=== PATIENT | male | born 1990 | race Caucasian/White ===

== ENCOUNTER 2016-11-01 17:57 | Emergency (ER) | payer OTHER ==
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
[2016-11-01 19:22] VITALS: BP 136/92; PULSE 78; RESP 16; TEMP 97.2
[2016-11-01] MEDS ORDERED: IBUPROFEN 800 MG TAB PO STA (19:41)
== END 2016-11-01 19:50 | disposition home or self-care (01) ==
LOC: EC 17:57
DX: S01.01XA Laceration without foreign body of scalp, initial encounter (principal); Y04.2XXA Assault by strike against or bumped into by another person, initial encounter; Y92.830 Public park as the place of occurrence of the external cause; Z76.0 Encounter for issue of repeat prescription; F20.9 Schizophrenia, unspecified; F41.9 Anxiety disorder, unspecified; F41.0 Panic disorder [episodic paroxysmal anxiety]; Z79.899 Other long term (current) drug therapy; Z88.8 Allergy status to other drugs, medicaments and biological substances
CPT/HCPCS: 12001; 70450; 99283

== ENCOUNTER 2016-11-12 15:50 | Emergency (ER) | payer OTHER ==
[2016-11-12 15:57] VITALS: RESP 18
[2016-11-12] MEDS ORDERED: diphenhydrAMINE 50 MG/ML 1 ML VIAL IVP STA (16:10)
[2016-11-12] MEDS ORDERED: KETOROLAC 30 MG/ML 1 ML VIAL IVP STA (16:10)
[2016-11-12] MEDS ORDERED: SODIUM CHLORIDE 0.9% 1,000 ML IV STA (16:11)
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
[2016-11-12 17:48] VITALS: BP 137/80; PULSE 98; TEMP 98.3
== END 2016-11-12 17:50 | disposition home or self-care (01) ==
LOC: EC 15:50
DX: R51 Headache (principal); Z76.0 Encounter for issue of repeat prescription; F20.9 Schizophrenia, unspecified; F41.9 Anxiety disorder, unspecified; F41.0 Panic disorder [episodic paroxysmal anxiety]; Z87.891 Personal history of nicotine dependence
CPT/HCPCS: 99283; 96374; 96375; 96361; J1200; J1885

== ENCOUNTER 2016-12-14 20:32 | Emergency (ER) | payer OTHER ==
--- NOTE | 2016-12-14 23:17 | ED ---
Male Urogenital HPI - General Chief complaint: Urogenital Stated complaint: STD testing Time Seen by Provider: 12/14/16 22:53 Source: patient, RN notes reviewed Mode of arrival: ambulatory Limitations: no limitations - History of Present Illness Initial comments: Patient is a 26-year-old male presents emergency room for evaluation. Patient states he was donating plasma and he had blood tests. Patient states that phone call the other day that he tested positive for syphilis. Patient denies any known history of syphilis. Patient states he was told it could be a false positive. Patient states he got second blood work done and is waiting for the results. Patient states he is afraid he has syphilis and wants to be treated right away. Patient denies any lesions or rashes over his penis. Patient denies abnormal penile discharge. Patient denies any pain or burning during urination, trouble urinating. Patient states he noticed a small red rash on the palm of his hand and says that it itches. Patient states he is not sure if this is related or not. Patient denies fevers, chills, headache, sore throat, chest pain, shortness of breath, nausea, vomiting. Patient denies history of STDs. - Related Data Home Medications Medication Instructions Recorded Confirmed clonazePAM [KlonoPIN] 1 mg PO TID 09/21/15 12/14/16 Gabapentin 800 mg PO QID 05/23/16 12/14/16 Asenapine Maleate [Saphris] 10 mg SL HS 11/01/16 12/14/16 buPROPion HCL [Wellbutrin XL] 300 mg PO DAILY 11/01/16 12/14/16 Previous Rx's Medication Instructions Recorded Doxycycline [Vibramycin] 100 mg PO Q12HR 14 Days 12/14/16 clonazePAM [KlonoPIN] 1 mg PO TID PRN #3 tablet 12/14/16 Allergies Allergy/AdvReac Type Severity Reaction Status Date / Time aripiprazole [From Abilify] Allergy Unknown Verified 12/14/16 22:57 fluphenazine enanthate Allergy Unknown Verified 12/14/16 22:57 [From Prolixin] fluphenazine HCl Allergy Unknown Verified 12/14/16 22:57 [From Prolixin] haloperidol [From Haldol] Allergy Unknown Verified 12/14/16 22:57 haloperidol lactate Allergy Unknown Verified 12/14/16 22:57 [From Haldol] paliperidone [From Invega] Allergy Unknown Verified 12/14/16 22:57 risperidone [From Risperdal] Allergy Unknown Verified 12/14/16 22:57 Review of Systems ROS Statement: Those systems with pertinent positive or pertinent negative responses have been documented in the HPI. ROS Other: All systems not noted in ROS Statement are negative. Past Medical History Past Medical History: No Reported History Additional Past Medical History / Comment(s): Schizophrenia, right arm fracture , degenerative disc to lower back, and right wrist plate and screws History of Any Multi-Drug Resistant Organisms: None Reported Past Surgical History: Orthopedic Surgery Additional Past Surgical History / Comment(s): mouth surgery, reduction of right arm fracture. Past Psychological History: Anxiety, Panic Disorder, Schizophrenia Smoking Status: Former smoker Past Alcohol Use History: Occasional Past Drug Use History: Marijuana, Prescription Drug Abuse General Exam - General Exam Comments Initial Comments: Sitting in exam room in no distress. Limitations: no limitations General appearance: alert, in no apparent distress Head exam: Present: atraumatic, normocephalic, normal inspection Eye exam: Present: normal appearance ENT exam: Present: normal exam Neck exam: Present: normal inspection Respiratory exam: Present: normal lung sounds bilaterally. Absent: respiratory distress Cardiovascular Exam: Present: regular rate, normal rhythm, normal heart sounds GI/Abdominal exam: Present: soft, normal bowel sounds. Absent: distended, tenderness, guarding, rebound, rigid exam: Present: normal inspection Extremities exam: Present: normal inspection Back exam: Present: normal inspection Neurological exam: Present: alert, oriented X3, CN II-XII intact, normal gait Psychiatric exam: Present: normal affect, normal mood Skin exam: Present: warm, dry, intact, normal color. Absent: rash Course Vital Signs 12/14/16 12/14/16 21:25 23:49 Temperature 97.5 F L 98.1 F Pulse Rate 73 77 Respiratory 18 16 Rate Blood Pressure 161/97 139/78 O2 Sat by Pulse 99 97 Oximetry Medical Decision Making - Medical Decision Making Patient is a 26-year-old male presents emergency room for evaluation of possible syphilis. Patient states the second blood draw is still pending. Will prophylactically treat patient with IM penicillin G and send home on Doxy. Urine cultures for gonorrhea and chlamydia pending. Patient states he understands everything that was discussed with him. Return parameters discussed. Case discussed with Dr. Monge. - Lab Data Lab Results 12/14/16 Range/Units 23:13 Urine Color Yellow Urine Appearance Clear (Clear) Urine pH 6.5 (5.0-8.0) Ur Specific [place] 1.008 (1.001-1.035) Urine Protein Negative (Negative) Urine Glucose (UA) Negative (Negative) Urine Ketones 1+ H (Negative) Urine Blood Negative (Negative) Urine Nitrite Negative (Negative) Urine Bilirubin Negative (Negative) Urine Urobilinogen <2.0 (<2.0) mg/dL Ur Leukocyte Esterase Negative (Negative) Disposition Clinical Impression: Prophylactic antibiotic, Possible exposure to STD, Anxiety Disposition: HOME SELF-CARE Condition: Good Instructions: Syphilis (ED) Additional Instructions: Take antibiotics as directed. Please follow-up with primary care provider or infectious disease specialist for further evaluation. If any new symptom arises or symptoms worsen, return to ER as soon as possible. Prescriptions: Doxycycline [Vibramycin] 100 mg PO Q12HR 14 Days clonazePAM [KlonoPIN] 1 mg PO TID PRN #3 tablet PRN Reason: Anxiety Referrals: Anna Gandhi MD [Primary Care Provider] - 1-2 days José Aranda MD [STAFF PHYSICIAN] - 1-2 days Time of Disposition: 23:25
[2016-12-14 23:21] LABS: Appearance,Urine Clear (Clear); Bilirubin,Urine Negative (Negative); Glucose,Urine (UA) Negative (Negative); Ketones,Urine 1+ (Negative); Leukocyte Esterase,Urine Negative (Negative); Nitrite,Urine Negative (Negative); PH, Urine 6.5 (5.0-8.0); Protein,Urine Negative (Negative); Specific Gravity,Urine 1.008 (1.001-1.035); UA Billing (MACRO vs. MICRO) CHEM; Urobilinogen,Urine <2.0 mg/dL (<2.0)
[2016-12-14] MEDS ORDERED: PENICILLIN G BENZATHINE 1,200,000 UNIT/2 ML SYRINGE IM STA (23:21)
[2016-12-14 23:50] VITALS: BP 139/78; PULSE 77; RESP 16; TEMP 98.1
== END 2016-12-14 23:49 | disposition home or self-care (01) ==
LOC: EC 20:32
DX: Z29.8 Encounter for other specified prophylactic measures (principal); F41.9 Anxiety disorder, unspecified; F20.9 Schizophrenia, unspecified; F41.0 Panic disorder [episodic paroxysmal anxiety]; Z79.899 Other long term (current) drug therapy; Z88.8 Allergy status to other drugs, medicaments and biological substances; Z87.891 Personal history of nicotine dependence
CPT/HCPCS: 81003; 87491; 87591; 99283; 96372; J0561

== ENCOUNTER 2017-03-24 12:49 | Emergency (ER) | payer OTHER ==
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
[2017-03-24 13:19] VITALS: RESP 18
[2017-03-24 15:24] VITALS: BP 150/98; PULSE 68; TEMP 97.8
== END 2017-03-24 15:24 | disposition home or self-care (01) ==
LOC: EC 12:49
DX: F20.5 Residual schizophrenia (principal); Z87.891 Personal history of nicotine dependence; Z88.8 Allergy status to other drugs, medicaments and biological substances; Z79.1 Long term (current) use of non-steroidal anti-inflammatories (NSAID); Z79.899 Other long term (current) drug therapy
CPT/HCPCS: 82075; 99283

== ENCOUNTER 2017-05-09 12:37 | Emergency (ER) | payer OTHER ==
--- NOTE | 2017-05-09 13:06 | ED ---
Psych HPI - General Chief Complaint: Psychiatric Symptoms Stated Complaint: Mental Health Time Seen by Provider: 05/09/17 12:50 Source: police, RN notes reviewed Mode of arrival: ambulatory - History of Present Illness Initial Comments: This is a 26-year-old male with a history apparently of schizophrenia who is brought in by police on a pickup order. He is petitioned by his mother. Patient self denies any complaints this time he states he is trying to be cooperative. He denies a suicidal thoughts or ideation. Per reports he is paranoid about his food and drinks. He is also not bathing not changing his clothing. No reports of drugs or alcohol MD Complaint: other - Related Data Home Medications Medication Instructions Recorded Confirmed Gabapentin 800 mg PO QID 05/23/16 05/09/17 Asenapine Maleate [Saphris] 10 mg SL HS 11/01/16 05/09/17 buPROPion HCL [Wellbutrin XL] 300 mg PO DAILY 11/01/16 05/09/17 Allergies Allergy/AdvReac Type Severity Reaction Status Date / Time aripiprazole [From Abilify] Allergy Unknown Verified 05/09/17 13:47 fluphenazine enanthate Allergy Unknown Verified 05/09/17 13:47 [From Prolixin] fluphenazine HCl Allergy Unknown Verified 05/09/17 13:47 [From Prolixin] haloperidol [From Haldol] Allergy Unknown Verified 05/09/17 13:47 haloperidol lactate Allergy Unknown Verified 05/09/17 13:47 [From Haldol] paliperidone [From Invega] Allergy Unknown Verified 05/09/17 13:47 risperidone [From Risperdal] Allergy Unknown Verified 05/09/17 13:47 Review of Systems ROS Statement: Those systems with pertinent positive or pertinent negative responses have been documented in the HPI. ROS Other: All systems not noted in ROS Statement are negative. Past Medical History Past Medical History: No Reported History Additional Past Medical History / Comment(s): Schizophrenia, right arm fracture , degenerative disc to lower back, and right wrist plate and screws History of Any Multi-Drug Resistant Organisms: None Reported Past Surgical History: Orthopedic Surgery Additional Past Surgical History / Comment(s): mouth surgery, reduction of right arm fracture. Past Psychological History: Anxiety, Panic Disorder, Schizophrenia Smoking Status: Former smoker Past Alcohol Use History: Occasional Past Drug Use History: Marijuana, Prescription Drug Abuse General Exam - General Exam Comments Initial Comments: This is a well-developed well-nourished awake alert oriented 3 male Limitations: no limitations General appearance: alert, in no apparent distress Head exam: Present: atraumatic, normocephalic, normal inspection Eye exam: Present: normal appearance, PERRL, EOMI. Absent: scleral icterus, conjunctival injection, periorbital swelling ENT exam: Present: normal exam, mucous membranes moist Neck exam: Present: normal inspection. Absent: tenderness, meningismus, lymphadenopathy Respiratory exam: Present: normal lung sounds bilaterally. Absent: respiratory distress, wheezes, rales, rhonchi, stridor Cardiovascular Exam: Present: regular rate, normal rhythm, normal heart sounds. Absent: systolic murmur, diastolic murmur, rubs, gallop, clicks GI/Abdominal exam: Present: soft, normal bowel sounds. Absent: distended, tenderness, guarding, rebound, rigid Extremities exam: Present: normal inspection, full ROM, normal capillary refill. Absent: tenderness, pedal edema, joint swelling, calf tenderness Back exam: Present: normal inspection Neurological exam: Present: alert, oriented X3, CN II-XII intact Psychiatric exam: Present: flat affect Skin exam: Present: warm, dry, intact, normal color. Absent: rash Course Vital Signs 05/09/17 12:43 Temperature 98.0 F Pulse Rate 102 H Respiratory 18 Rate Blood Pressure 143/89 O2 Sat by Pulse 97 Oximetry Medical Decision Making - Medical Decision Making The patient was evaluated by psychiatric service found not to be a risk to himself or anyone else he'll be discharged I did fill out a negative clinical cert - Lab Data Lab Results 05/09/17 Range/Units 13:37 Urine Opiates Screen Not Detected (NotDetected) Ur Oxycodone Screen Not Detected (NotDetected) Urine Methadone Screen Not Detected (NotDetected) Ur Propoxyphene Screen Not Detected (NotDetected) Ur Barbiturates Screen Not Detected (NotDetected) U Tricyclic Antidepress Not Detected (NotDetected) Ur Phencyclidine Scrn Not Detected (NotDetected) Ur Amphetamines Screen Not Detected (NotDetected) U Methamphetamines Scrn Not Detected (NotDetected) U Benzodiazepines Scrn Not Detected (NotDetected) Urine Cocaine Screen Not Detected (NotDetected) U Marijuana (THC) Screen Detected H (NotDetected) Disposition Clinical Impression: Schizophrenia Disposition: HOME SELF-CARE Condition: Good Instructions: Schizophrenia (ED) Referrals: Anna Gandhi MD [Primary Care Provider] - 1-2 days
[2017-05-09 16:55] VITALS: BP 104/72; PULSE 88; RESP 20; TEMP 98.2
== END 2017-05-09 16:55 | disposition home or self-care (01) ==
LOC: EC 12:37
DX: F20.9 Schizophrenia, unspecified (principal); Z87.891 Personal history of nicotine dependence; Z88.8 Allergy status to other drugs, medicaments and biological substances; Z79.899 Other long term (current) drug therapy
CPT/HCPCS: 80306; 82075; 99285

== ENCOUNTER 2017-07-24 12:48 | Inpatient (IN) | payer MEDICAID, OTHER ==
--- NOTE | 2017-07-24 13:36 | ED ---
General Adult HPI - General Chief complaint: Psychiatric Symptoms Stated complaint: Mental Health Time Seen by Provider: 07/24/17 12:55 Source: patient, police, RN notes reviewed Mode of arrival: ambulatory Limitations: no limitations - History of Present Illness Initial comments: This is a 26 year old male who has a past history of mental health problems. According to the court ordered pickup order it stated that the patient was talking to himself refusing to get help at [facility] or go to the hospital. They also stated he was defecating and urinating in his bedroom and it was an excessive amount of garbage around his bedroom. This indicated to his counselor that he was not taking proper care of himself. Patient denies all these allegations. - Related Data Home Medications Medication Instructions Recorded Confirmed Gabapentin 800 mg PO QID 05/23/16 07/24/17 Asenapine Maleate [Saphris] 10 mg SL HS 11/01/16 07/24/17 buPROPion HCL [Wellbutrin XL] 300 mg PO DAILY 11/01/16 07/24/17 Allergies Allergy/AdvReac Type Severity Reaction Status Date / Time aripiprazole [From Abilify] Allergy Unknown Verified 07/24/17 14:02 fluphenazine enanthate Allergy Unknown Verified 07/24/17 14:02 [From Prolixin] fluphenazine HCl Allergy Unknown Verified 07/24/17 14:02 [From Prolixin] haloperidol [From Haldol] Allergy Unknown Verified 07/24/17 14:02 haloperidol lactate Allergy Unknown Verified 07/24/17 14:02 [From Haldol] paliperidone [From Invega] Allergy Unknown Verified 07/24/17 14:02 risperidone [From Risperdal] Allergy Unknown Verified 07/24/17 14:02 Review of Systems ROS Statement: Those systems with pertinent positive or pertinent negative responses have been documented in the HPI. ROS Other: All systems not noted in ROS Statement are negative. Past Medical History Past Medical History: No Reported History Additional Past Medical History / Comment(s): Schizophrenia, right arm fracture , degenerative disc to lower back, and right wrist plate and screws History of Any Multi-Drug Resistant Organisms: None Reported Past Surgical History: Orthopedic Surgery Additional Past Surgical History / Comment(s): mouth surgery, reduction of right arm fracture. Past Psychological History: Anxiety, Panic Disorder, Schizophrenia Smoking Status: Never smoker Past Alcohol Use History: Occasional Past Drug Use History: Marijuana, Prescription Drug Abuse General Exam - General Exam Comments Initial Comments: GENERAL: Patient is well-developed and well-nourished. Patient is nontoxic and well- hydrated and is in no acute distress. ENT: Moist mucous membranes. EYES: The sclera were anicteric and conjunctiva were pink and moist. Extraocular movements were intact and pupils were equal round and reactive to light. Eyelids were unremarkable. PULMONARY: Unlabored respirations. SKIN: Skin is clear with no lesions or rashes and otherwise unremarkable. NEUROLOGIC: Patient is alert and oriented x3. Cranial nerves II through XII are grossly intact. Motor and sensory are also intact. Normal speech, volume and content. Symmetrical smile. LYMPHATICS: No significant lymphadenopathy is noted PSYCHIATRIC: Patient is calm and is not at all aggressive. Patient denies that he has not been taking care of himself. Patient states coming here is a waste of time Limitations: no limitations Course Vital Signs 07/24/17 12:51 Pulse Rate 96 Respiratory 18 Rate Blood Pressure 147/86 O2 Sat by Pulse 98 Oximetry Medical Decision Making - Lab Data Lab Results 07/24/17 Range/Units 14:34 Urine Opiates Screen Not Detected (NotDetected) Ur Oxycodone Screen Not Detected (NotDetected) Urine Methadone Screen Not Detected (NotDetected) Ur Propoxyphene Screen Not Detected (NotDetected) Ur Barbiturates Screen Not Detected (NotDetected) U Tricyclic Antidepress Not Detected (NotDetected) Ur Phencyclidine Scrn Not Detected (NotDetected) Ur Amphetamines Screen Not Detected (NotDetected) U Methamphetamines Scrn Not Detected (NotDetected) U Benzodiazepines Scrn Not Detected (NotDetected) Urine Cocaine Screen Not Detected (NotDetected) U Marijuana (THC) Screen Not Detected (NotDetected) Disposition Clinical Impression: Schizophrenia, acute Disposition: ADMITTED IP TO THIS HOSP Referrals: Anna Gandhi MD [Primary Care Provider] - 1-2 days Time of Disposition: 16:24
[2017-07-24] MEDS ORDERED: ZIPRASIDONE 20 MG VIAL IM PRN (18:09)
[2017-07-24] MEDS ORDERED: MAGNESIUM HYDROXIDE 2,400 MG/10 ML CUP PO PRN (18:09)
[2017-07-24] MEDS ORDERED: ACETAMINOPHEN TAB 325 MG TAB PO PRN (18:09)
[2017-07-24] MEDS ORDERED: MAG HYDROX/AL HYDROX/SIMETH 30 ML CUP PO PRN (18:09)
[2017-07-24] MEDS: GABAPENTIN 400 MG CAP PO SCH (21:53)
[2017-07-24] MEDS: LORazepam 1 MG TAB PO PRN (21:57)
[2017-07-24] MEDS: ASENAPINE 5 MG TAB SUBLINGUAL SCH (22:18)
[2017-07-25] MEDS: LORazepam 1 MG TAB PO PRN ×3 (06:29→15:10)
[2017-07-25] MEDS: buPROPion XL 300 MG TAB.ER.24H PO SCH (09:03)
[2017-07-25] MEDS: GABAPENTIN 400 MG CAP PO SCH ×4 (09:03→20:52)
[2017-07-25] MEDS ORDERED: IBUPROFEN 400 MG TAB PO PRN (14:43)
--- NOTE | 2017-07-25 14:43 | P.CONS ---
History of Present Illness - Reason for Consult Medical clearance - History of Present Illness Patient was admitted to psychiatric floor on Court order, patient is an animated medical problems patient was comparing of back pain which is a chronic low back and asking for pain medications for which we will start him on ibuprofen patient denied any history of acid reflux patient denied any cough or fever chills, nausea, vomiting, abdominal pain. Review of Systems REVIEW OF SYSTEMS: CONSTITUTIONAL: No fever, no malaise, no fatigue. HEENT: No recent visual problems or hearing problems. Denied any sore throat. CARDIOVASCULAR: No chest pain, orthopnea, PND, no palpitations, no syncope. PULMONARY: No shortness of breath, no cough, no hemoptysis. GASTROINTESTINAL: No diarrhea, no nausea, no vomiting, no abdominal pain. Normoactive bowel sounds. NEUROLOGICAL: No headaches, no weakness, no numbness. HEMATOLOGICAL: Denies any bleeding or petechiae. GENITOURINARY: Denies any burning micturition, frequency, or urgency. MUSCULOSKELETAL/RHEUMATOLOGICAL: Back pain as mentioned above ENDOCRINE: Denies any polyuria or polydipsia. The rest of the 14-point review of systems is negative. Past Medical History Past Medical History: No Reported History Additional Past Medical History / Comment(s): Schizophrenia, right arm fracture , degenerative disc to lower back, and right wrist plate and screws History of Any Multi-Drug Resistant Organisms: None Reported Past Surgical History: Orthopedic Surgery Additional Past Surgical History / Comment(s): mouth surgery, reduction of right arm fracture. Past Psychological History: Anxiety, Panic Disorder, Schizophrenia Smoking Status: Never smoker Past Alcohol Use History: Occasional Past Drug Use History: Marijuana, Prescription Drug Abuse Medications and Allergies Home Medications Medication Instructions Recorded Confirmed Type Gabapentin 800 mg PO QID 05/23/16 07/24/17 History Asenapine Maleate [Saphris] 10 mg SL HS 11/01/16 07/24/17 History buPROPion HCL [Wellbutrin XL] 300 mg PO DAILY 11/01/16 07/24/17 History Allergies Allergy/AdvReac Type Severity Reaction Status Date / Time aripiprazole [From Abilify] Allergy Unknown Verified 07/24/17 14:02 fluphenazine enanthate Allergy Unknown Verified 07/24/17 14:02 [From Prolixin] fluphenazine HCl Allergy Unknown Verified 07/24/17 14:02 [From Prolixin] haloperidol [From Haldol] Allergy Unknown Verified 07/24/17 14:02 haloperidol lactate Allergy Unknown Verified 07/24/17 14:02 [From Haldol] paliperidone [From Invega] Allergy Unknown Verified 07/24/17 14:02 risperidone [From Risperdal] Allergy Unknown Verified 07/24/17 14:02 Physical Exam Vitals: Vital Signs Temp Pulse Pulse Resp BP BP Pulse Ox 07/25/17 06:47 98.0 F 120 H 16 136/91 07/24/17 18:04 97.1 F L 77 15 131/79 97 07/24/17 17:49 90 18 135/68 98 PHYSICAL EXAMINATION: GENERAL: The patient is alert and oriented x3, not in any acute distress. Well developed, well nourished. HEENT: Pupils are round and equally reacting to light. EOMI. No scleral icterus. No conjunctival pallor. Normocephalic, atraumatic. No pharyngeal erythema. No thyromegaly. CARDIOVASCULAR: S1 and S2 present. No murmurs, rubs, or gallops. PULMONARY: Chest is clear to auscultation, no wheezing or crackles. ABDOMEN: Soft, nontender, nondistended, normoactive bowel sounds. No palpable organomegaly. MUSCULOSKELETAL: No joint swelling or deformity. EXTREMITIES: No cyanosis, clubbing, or pedal edema. NEUROLOGICAL: Gross neurological examination did not reveal any focal deficits. SKIN: No rashes. Assessment and Plan Plan: #1 chronic low back pain: Patient does not have any red flag signs patient will be started on nonsteroidal anti-intermittent medication along with Pepcid. #2 history of schizophrenia: Management as per primary service. #3 marijuana drug abuse: Counseling was provided patient denied any IV drug abuse in the past
[2017-07-25] MEDS: CYCLOBENZAPRINE 10 MG TAB PO PRN (17:22)
[2017-07-25] MEDS: BUTALB/APAP/CAFF 50-325-40MG TAB PO PRN ×2 (17:22→21:41)
[2017-07-25] MEDS: FAMOTIDINE 20 MG TAB PO SCH (20:52)
[2017-07-25] MEDS: ASENAPINE 5 MG TAB SUBLINGUAL SCH (20:52)
--- NOTE | 2017-07-25 21:53 | P.HP ---
Psychiatric H&P - . H&P Date: 07/25/17 History & Physical: Allergies Allergy/AdvReac Type Severity Reaction Status Date / Time aripiprazole [From Abilify] Allergy Unknown Verified 07/24/17 14:02 fluphenazine enanthate Allergy Unknown Verified 07/24/17 14:02 [From Prolixin] fluphenazine HCl Allergy Unknown Verified 07/24/17 14:02 [From Prolixin] haloperidol [From Haldol] Allergy Unknown Verified 07/24/17 14:02 haloperidol lactate Allergy Unknown Verified 07/24/17 14:02 [From Haldol] paliperidone [From Invega] Allergy Unknown Verified 07/24/17 14:02 risperidone [From Risperdal] Allergy Unknown Verified 07/24/17 14:02 Vital Signs Temp 98.0 F 07/25/17 06:47 Pulse 120 H 07/25/17 06:47 Resp 16 07/25/17 06:47 BP 136/91 07/25/17 06:47 Pulse Ox 97 07/24/17 18:04 Intake & Output 07/24/17 07/25/17 07/25/17 18:59 06:59 18:59 Weight 86.183 kg Laboratory Last Values Urine Opiates Screen Not Detected (NotDetected) 07/24/17 14:34 Ur Oxycodone Screen Not Detected (NotDetected) 07/24/17 14:34 Urine Methadone Screen Not Detected (NotDetected) 07/24/17 14:34 Ur Propoxyphene Screen Not Detected (NotDetected) 07/24/17 14:34 Ur Barbiturates Screen Not Detected (NotDetected) 07/24/17 14:34 U Tricyclic Antidepress Not Detected (NotDetected) 07/24/17 14:34 Ur Phencyclidine Scrn Not Detected (NotDetected) 07/24/17 14:34 Ur Amphetamines Screen Not Detected (NotDetected) 07/24/17 14:34 U Methamphetamines Scrn Not Detected (NotDetected) 07/24/17 14:34 U Benzodiazepines Scrn Not Detected (NotDetected) 07/24/17 14:34 Urine Cocaine Screen Not Detected (NotDetected) 07/24/17 14:34 U Marijuana (THC) Screen Not Detected (NotDetected) 07/24/17 14:34 HPI: Patient was brought to the emergency room on a pickup order by his [facility] staff after failing to show up for two med-checks. As noted in medical record, "Per manager case, pt. has been urinating and defecating on the floor in his room. The manager case also reported an abnormal amount of garbage around the pts. bed." Patient was admitted to inpatient unit for evaluation. Patient is well known to this unit, and staff report patient report patient's initial presentation is superior to all previous admissions. This morning, patient showered and later brushed his teeth independently without any prompts from staff to do so. Patient's hair remains somewhat tangled and disheveled, but is overall clean and groomed. Patient reports that he was taking his Saphris due to having a left over supply for two reasons. One he states he is not taking it as prescribed and takes 1-tablet every 1-3 days instead of nightly. He also reports having a supply of Saphris "because I've been on it forever" that has accumulated over time from when patient filled the prescription and was entirely non-compliant. Patient does admit that some of said supply could be and shrugs indifferently. Patient denies his room is "as bad as it sounds." He does admit to sometimes urinating on t he floor, but he cannot explain why or what time of day, or if he has any pain with urination. He denies feces being present on his bed. During interview patient is linear bordering on circumstantial, he exhibits no overt signs of psychosis. Patient is able to recall in detail his past experience with PANIAGUA's and specific side effects with each. Patient is able to make a compelling argument about benzodiazpines that is complex and highly structured. He makes clear to enunciate that he is not under a court order and "I wasn't hurting anyone, I wasn't hurting myself so I just want to be left alone." Patient was again challenged about the living conditions of his former living space. Patient is more defensive that previously during interview, but easily redirected. He admits to it being filthy. He admits to sometimes urinating in the floor. He then starts to discuss discord with other persons living in the dwelling he was staying. Patient excused self to go to lunch. Interview terminated. PSYCHIATRIC HISTORY: Extensive history of psychiatric hospitalization and outpatient visits with multiple antipsychotic treatment failures. To date, patient has only had a positive response with Seroquel XR and Saphris. PMH: H/O syncope vs orthostasis, head trauma HOME MEDICATIONS: 3 Medication Instructions Recorded Confirmed Gabapentin 800 mg PO QID 05/23/16 07/24/17 Asenapine Maleate [Saphris] 10 mg SL HS 11/01/16 07/24/17 buPROPion HCL [Wellbutrin XL] 300 mg PO DAILY 11/01/16 07/24/17 SURGICAL HISTORY: Orthopedic: wrists and lower back CHEMICAL DEPENDENCY HISTORY: Denies a history of significant substance abuse problems, routinely has UDS positive for cannabis, occasionally drinks alcohol FAMILY HISTORY: No significant history of mental illness SOCIAL HISTORY: education: HS diploma occupational: SSDI environmental: lives with friends =? : no yazidi:Druze access to firearms: no sexual orientation: heterosexual safety at home: yes STRENGTHS/WEAKNESSES: "I'm outgoing," / poor coping skills MENTAL STATUS EXAM: Appearance: alert, hygiene intact but disheveled, appears stated age, steady gait Behavior: psychomotor agitation+++, no abnormal movements, fair eye contact Attitude: cooperative Speech: normal rate, rhythm, fluency, articulation, volume, and prosody; primary language: [place] Mood: mildly irritated Affect: appropriate Thought processes: overall linear Thought content: patient does not appear to be responding to internal stimuli; patient denies auditory and visual hallucinations, no delusions appreciated Insight: fair Judgment: poor Cognitive: oriented to all 3 spheres, average intelligence Assessment and Plan (1) Schizophrenia Current Visit: Yes Status: Acute Priority: High Code(s): F20.9 - SCHIZOPHRENIA, UNSPECIFIED SNOMED Code(s): 04054530 Plan: Continue hospitalization Conrinue Asenapine (Saphris) 10-mg SL HS Continue bupropion HCl (Wellbutrin Xl) 300-mg PO QAM Continue Neurontin 800-mg PO QID Patient and mother have signed Voluntary Admission form, legal status is now voluntary SW will follow up on disposition status, anticipated discharge in 2-3 days Time with Patient: Greater than 30
[2017-07-26] MEDS: LORazepam 1 MG TAB PO PRN ×4 (00:35→17:53)
[2017-07-26] MEDS: BUTALB/APAP/CAFF 50-325-40MG TAB PO PRN ×5 (01:20→20:08)
[2017-07-26] MEDS: CYCLOBENZAPRINE 10 MG TAB PO PRN ×2 (05:19→16:54)
[2017-07-26] MEDS: buPROPion XL 300 MG TAB.ER.24H PO SCH (07:50)
[2017-07-26] MEDS: GABAPENTIN 400 MG CAP PO SCH ×4 (07:51→20:08)
[2017-07-26] MEDS: FAMOTIDINE 20 MG TAB PO SCH ×2 (07:56→20:09)
[2017-07-26] MEDS: METOPROLOL SUCCINATE (ER) 50 MG TAB.ER.24H PO SCH (09:35)
[2017-07-26] MEDS: ASENAPINE 5 MG TAB SUBLINGUAL SCH (20:05)
--- NOTE | 2017-07-26 21:31 | P.PN ---
Progress Note - Text Progress Note Date: 07/26/17 Interval History: Patient found on unit and brought to exam room for private interview. Patient is again calm and lucid exhibiting no signs of psychosis. He is compliant with medications and meals. Of note, patient was pacing around most of the day and staff reported patient slept only 2-3 hours up pacing the halls the rest of the night. Patient describes a chronic feeling of restless that worsens after he takes Saphris so he likely is having some degree of akathisia. Patient has historically been hesitant to the idea of adding more medications to regimen. At this time, patient denies SI/HI/AVH. Mental Status Exam: Appearance: alert, well groomed, appears stated age, steady gait Behavior: no psychomotor agitation or psychomotor retardation, no abnormal movements, fair eye contact Attitude: cooperative Speech: normal rate, rhythm, fluency, articulation, volume, and prosody; primary language: Indonesian Mood: euthymic Affect: congruent, reactive Thought processes: linear, organized Thought content: patient does not appear to be responding to internal stimuli; patient denies auditory and visual hallucinations, no delusions appreciated Insight: fair Judgment: fair Cognitive: oriented to all 3 spheres, average intelligence Plan: Continue hospitalization Start Toprol XL 50-mg PO QAM for akathisia and chronic tachycardia Otherwise continue current regimen SW is working to help find patient a new place to live since he apparently cannot return to his former
[2017-07-27] MEDS: LORazepam 1 MG TAB PO PRN ×2 (00:30→08:39)
[2017-07-27] MEDS: CYCLOBENZAPRINE 10 MG TAB PO PRN ×2 (02:31→14:04)
[2017-07-27] MEDS: FAMOTIDINE 20 MG TAB PO SCH ×3 (08:37→20:57)
[2017-07-27] MEDS: GABAPENTIN 400 MG CAP PO SCH ×4 (08:37→20:39)
[2017-07-27] MEDS: METOPROLOL SUCCINATE (ER) 50 MG TAB.ER.24H PO SCH (08:37)
[2017-07-27] MEDS: BUTALB/APAP/CAFF 50-325-40MG TAB PO PRN ×4 (08:40→20:54)
[2017-07-27] MEDS: buPROPion XL 300 MG TAB.ER.24H PO SCH (08:41)
[2017-07-27] MEDS: clonazePAM 1 MG TAB PO PRN ×3 (11:49→20:53)
[2017-07-27] MEDS: ASENAPINE 5 MG TAB SUBLINGUAL SCH (20:40)
[2017-07-27] MEDS: ZOLPIDEM 10 MG TAB PO PRN (20:53)
--- NOTE | 2017-07-28 00:58 | P.PN ---
Progress Note - Text Progress Note Date: 07/27/17 Interval History: Patient found on unit and brought to exam room for private interview. He continues to improve his grooming and is well groomed and also recently showered and brushed his teeth prior to interview. Patient continues to have significant difficulties with sleep. He is getting at most 3-4 hours of interrupted sleep each night. Patient requests new trial of Ambien. Patient updated on discharge plan and calm and cooperative with process. Mental Status Exam: Appearance: alert, well groomed, appears stated age, steady gait Behavior: no psychomotor agitation or psychomotor retardation, no abnormal movements, fair eye contact Attitude: cooperative Speech: normal rate, rhythm, fluency, articulation, volume, and prosody; primary language: Slovak Mood: mildly anxious Affect: congruent, reactive Thought processes: linear, organized Thought content: patient does not appear to be responding to internal stimuli; patient denies auditory and visual hallucinations, no delusions appreciated Insight: fair Judgment: fair Cognitive: oriented to all 3 spheres, average intelligence Plan: Continue hospitalization Restart Ambien 10-mg PO QHS PRN for insomnia Otherwise continue current regimen VIRY is working to help find patient a new place to live since he apparently cannot return to his former
[2017-07-28] MEDS: buPROPion XL 300 MG TAB.ER.24H PO SCH (09:08)
[2017-07-28] MEDS: FAMOTIDINE 20 MG TAB PO SCH ×2 (09:09→20:56)
[2017-07-28] MEDS: METOPROLOL SUCCINATE (ER) 50 MG TAB.ER.24H PO SCH (09:09)
[2017-07-28] MEDS: GABAPENTIN 400 MG CAP PO SCH ×4 (09:09→20:55)
[2017-07-28] MEDS: clonazePAM 1 MG TAB PO PRN ×2 (09:09→20:55)
[2017-07-28] MEDS: BUTALB/APAP/CAFF 50-325-40MG TAB PO PRN ×4 (09:10→23:14)
[2017-07-28] MEDS: ASENAPINE 5 MG TAB SUBLINGUAL SCH (20:55)
--- NOTE | 2017-07-28 21:21 | P.PN ---
Progress Note - Text Progress Note Date: 07/28/17 Patient finally slept better getting ~5-6 hours of sleep last night. He reports tolerating current regimen well and denies any adverse side effects. No new complaints. Hygiene remains intact, well groomed. Denies SI/HI/AVH. Of note, patient is circumstantial today and bordering on on being tangential a few times but easily redirected back into a normal, linear stream of conversation. Mental Status Exam: Appearance: alert, well groomed, appears stated age, steady gait Behavior: no psychomotor agitation or psychomotor retardation, no abnormal movements, fair eye contact Attitude: cooperative Speech: normal rate, rhythm, fluency, articulation, volume, and prosody; primary language: Welsh Mood: mildly anxious Affect: congruent, reactive Thought processes: tangential Thought content: patient does not appear to be responding to internal stimuli; patient denies auditory and visual hallucinations, no delusions appreciated Insight: fair Judgment: fair Cognitive: oriented to all 3 spheres, average intelligence Plan: Continue hospitalization Continue current regimen SW is working to help find patient a new place to live since he apparently cannot return to his former
[2017-07-28] MEDS: ZOLPIDEM 10 MG TAB PO PRN (21:40)
[2017-07-29] MEDS: METOPROLOL SUCCINATE (ER) 50 MG TAB.ER.24H PO SCH (08:38)
[2017-07-29] MEDS: buPROPion XL 300 MG TAB.ER.24H PO SCH (08:38)
[2017-07-29] MEDS: GABAPENTIN 400 MG CAP PO SCH ×4 (08:38→20:40)
[2017-07-29] MEDS: FAMOTIDINE 20 MG TAB PO SCH ×2 (08:38→20:40)
[2017-07-29] MEDS: BUTALB/APAP/CAFF 50-325-40MG TAB PO PRN ×3 (08:39→16:17)
[2017-07-29] MEDS: clonazePAM 1 MG TAB PO PRN ×3 (08:39→22:59)
--- NOTE | 2017-07-29 09:12 | P.PN ---
Progress Note - Text Interval history: The patient is found in his room he refuses to participate in an interview in an office. The patient is well known to the service I have treated him in the past. The patient states he does not need to speak with me as his medication as arty set. He states numerous times he is here voluntarily. Nursing staff report that the patient urinated on the floor last evening or early this morning. He does tend to isolate in his room. Mental status exam: The patient is alert, he is standing in his room he prefers not to meet with me in an office. He has a very disheveled appearance he is dressed in multiple layers and in a disorganized fashion. Eye contact is intermittent. He is dismissive of questions and endorses no symptoms. He states "once again someone made things up" in order to get him hospitalized. Insight and judgment impaired. He does have a known history of psychosis at baseline. He does also have a history of becoming agitated but he did not demonstrate any verbal or physical aggressiveness during our interaction this morning. He would not tolerate further questioning. Plan: The patient is currently prescribed Saphris 10 mg at bedtime. I would consider titrating the dose. It appears he has been compliant with this medication. Vital signs reviewed. We will continue to monitor him for safety and encourage his participation in the milieu.
[2017-07-29] MEDS: CYCLOBENZAPRINE 10 MG TAB PO PRN ×2 (15:10→22:59)
[2017-07-29] MEDS: ASENAPINE 5 MG TAB SUBLINGUAL SCH (20:40)
[2017-07-29] MEDS: ZOLPIDEM 10 MG TAB PO PRN (20:44)
[2017-07-30] MEDS: buPROPion XL 300 MG TAB.ER.24H PO SCH (08:40)
[2017-07-30] MEDS: GABAPENTIN 400 MG CAP PO SCH ×4 (08:41→21:15)
[2017-07-30] MEDS: METOPROLOL SUCCINATE (ER) 50 MG TAB.ER.24H PO SCH (08:41)
[2017-07-30] MEDS: FAMOTIDINE 20 MG TAB PO SCH ×2 (08:41→21:14)
[2017-07-30] MEDS: BUTALB/APAP/CAFF 50-325-40MG TAB PO PRN ×3 (08:42→19:55)
[2017-07-30] MEDS: clonazePAM 1 MG TAB PO PRN ×2 (08:42→18:37)
--- NOTE | 2017-07-30 09:39 | P.PN ---
Progress Note - Text Interval history: The patient is found in the hallway. He refuses to speak to me in interview room and insists that we speak in the hallway. He states "nothing wrong" he indicates he is taking his medication "like I always do". He states he is here voluntarily and is appropriate for discharge. He indicates he slept all night staff documented 4 hours. He reports he is eating. Mental status exam: The patient is alert he is ambulating without difficulty. He is dressed in multiple layers which appears quite disorganized. He is wearing at least 2 peers of shorts and 3 shirts and he has a disheveled appearance overall. His outer shirt is soiled. Eye contact is staring in nature. He continues to gesture with his hands during the course of our conversation. Earlier he is observed walking in the hallway swinging his arms however this is not being directed towards anyone as none was in the vicinity at the time. The patient's presentation indicates ongoing symptoms of psychosis and he is known to have psychosis at baseline. He is denying the presence of any symptoms if asked. Insight and judgment remain impaired. He continues to convey a history of medication compliance and over the years it has been quite the opposite. He demonstrates no aggressiveness towards me the session is Brief by the patient. Plan: The patient's will continue on his current medications consider titrating Saphris further. We will also need to monitor his use of Klonopin and Fioricet and Ambien as these have addictive potential and he has struggle with those issues in the past. It is unlikely he will be prescribed these medicines on an outpatient basis. Vital signs reviewed. He is encouraged to participate in the milieu but typically does not attend groups.
[2017-07-30] MEDS: CYCLOBENZAPRINE 10 MG TAB PO PRN ×2 (12:25→23:17)
[2017-07-30] MEDS: ZOLPIDEM 10 MG TAB PO PRN (21:15)
[2017-07-30] MEDS: ASENAPINE 5 MG TAB SUBLINGUAL SCH (21:15)
[2017-07-31] MEDS: buPROPion XL 300 MG TAB.ER.24H PO SCH (08:37)
[2017-07-31] MEDS: FAMOTIDINE 20 MG TAB PO SCH ×2 (08:38→20:22)
[2017-07-31] MEDS: METOPROLOL SUCCINATE (ER) 50 MG TAB.ER.24H PO SCH (08:38)
[2017-07-31] MEDS: GABAPENTIN 400 MG CAP PO SCH ×4 (08:38→20:22)
[2017-07-31] MEDS: clonazePAM 1 MG TAB PO PRN ×3 (08:39→21:16)
[2017-07-31] MEDS: BUTALB/APAP/CAFF 50-325-40MG TAB PO PRN ×2 (08:39→12:56)
[2017-07-31] MEDS: CYCLOBENZAPRINE 10 MG TAB PO PRN ×2 (12:59→23:47)
[2017-07-31] MEDS: ASENAPINE 5 MG TAB SUBLINGUAL SCH (20:22)
[2017-07-31] MEDS: BUTALB/APAP/CAFF 50-325-40MG TAB PO SCH (20:22)
[2017-07-31] MEDS: ZOLPIDEM 10 MG TAB PO PRN (21:16)
--- NOTE | 2017-07-31 22:10 | P.PN ---
Progress Note - Text Progress Note Date: 07/31/17 Interval History: Patient interviewed today with patient's SW present. Attending and SW both explained to patient that treatment is still attempting to find a senior care for him. Patient was upset and asked repeatedly why he couldn't sign himself out. Patient was told as he has been multiple times it is because he has a legal guardian. SW attempted several times to calm patient and redirect him, but patient is fixated on his desire to discharge. And to discharge to a location that is not a senior care which he has not expressed until today. Patient was told to ponder on this matter, talk to his mother, and treatment will continue to try and come up with options for him. Patient left the room irritable but less angry than he initially was at the news. Mental Status Exam: Appearance: alert, well groomed, appears stated age, steady gait Behavior: no psychomotor agitation or psychomotor retardation, no abnormal movements, fair eye contact Attitude: cooperative Speech: normal rate, rhythm, fluency, articulation, volume, and prosody; primary language: Czech Mood: irritable Affect: congruent, reactive Thought processes: linear Thought content: patient does not appear to be responding to internal stimuli; patient denies auditory and visual hallucinations, no delusions appreciated Insight: fair Judgment: fair Cognitive: oriented to all 3 spheres, average intelligence Plan: Continue hospitalizationte Continue current regimen SW is working to help find patient a new place to live since he apparently cannot return to his former
[2017-08-01] MEDS: buPROPion XL 300 MG TAB.ER.24H PO SCH (08:57)
[2017-08-01] MEDS: BUTALB/APAP/CAFF 50-325-40MG TAB PO SCH (08:57)
[2017-08-01] MEDS: GABAPENTIN 400 MG CAP PO SCH ×4 (08:58→21:13)
[2017-08-01] MEDS: METOPROLOL SUCCINATE (ER) 50 MG TAB.ER.24H PO SCH (08:58)
[2017-08-01] MEDS: FAMOTIDINE 20 MG TAB PO SCH ×2 (08:58→21:13)
[2017-08-01] MEDS: clonazePAM 1 MG TAB PO PRN ×2 (08:59→19:13)
--- NOTE | 2017-08-01 10:43 | P.PN ---
Progress Note - Text Progress Note Date: 08/01/17 Interval History: Patient is calmer today although he continues to fixate on discharge and does not understand the guardianship process despite multiple attempts to educate him. Patient continues to be attending almost all groups, activities, and recreational therapies. He is still attending his hygiene, showering, and grooming appropriately. Patient is medication compliant. Denies side effects. Eating ok, drinking ok, sleep has improved. Denies SI/HI/AVH. Mental Status Exam: Appearance: alert, well groomed, appears stated age, steady gait Behavior: no psychomotor agitation or psychomotor retardation, no abnormal movements, fair eye contact Attitude: cooperative Speech: normal rate, rhythm, fluency, articulation, volume, and prosody; primary language: Spanish Mood: mildly anxious Affect: congruent, reactive Thought processes: linear Thought content: patient does not appear to be responding to internal stimuli; patient denies auditory and visual hallucinations, no delusions appreciated Insight: fair Judgment: fair Cognitive: oriented to all 3 spheres, average intelligence Plan: Continue hospitalization Continue current regimen SW is working to help find patient a new place to live since he apparently cannot return to his former
[2017-08-01] MEDS ORDERED: BUTALB/APAP/CAFF 50-325-40MG TAB PO PRN (14:16)
[2017-08-01] MEDS: BUTALB/APAP/CAFF 50-325-40MG TAB PO PRN ×2 (15:40→21:18)
[2017-08-01] MEDS: ASENAPINE 5 MG TAB SUBLINGUAL SCH (21:13)
[2017-08-01] MEDS: ZOLPIDEM 10 MG TAB PO PRN (21:22)
[2017-08-02] MEDS: BUTALB/APAP/CAFF 50-325-40MG TAB PO PRN ×5 (04:05→19:46)
[2017-08-02] MEDS: clonazePAM 1 MG TAB PO PRN ×3 (04:05→20:25)
[2017-08-02] MEDS: GABAPENTIN 400 MG CAP PO SCH ×4 (08:01→21:02)
[2017-08-02] MEDS: FAMOTIDINE 20 MG TAB PO SCH ×2 (08:01→21:00)
[2017-08-02] MEDS: buPROPion XL 300 MG TAB.ER.24H PO SCH (08:01)
[2017-08-02] MEDS: METOPROLOL SUCCINATE (ER) 50 MG TAB.ER.24H PO SCH (08:02)
--- NOTE | 2017-08-02 20:02 | P.PN ---
Progress Note - Text Progress Note Date: 08/02/17 Interval History: Patient irritable today. He stands the for entire interview and states, "I'm doing fine, can we get this over with?" Patient denies any new concerns and terminates interview. Staff report patient has been more irritable with them too but otherwise patient is unchanged from previous exam. Mental Status Exam: Appearance: alert, somewhat disheveled , appears stated age, steady gait Behavior: no psychomotor agitation or psychomotor retardation, no abnormal movements, fair eye contact Attitude: cooperative Speech: normal rate, rhythm, fluency, articulation, volume, and prosody; primary language: Czech Mood: irritable Affect: congruent, reactive Thought processes: linear Thought content: patient does not appear to be responding to internal stimuli; patient denies auditory and visual hallucinations, no delusions appreciated Insight: fair Judgment: fair Cognitive: oriented to all 3 spheres, average intelligence Plan: Continue hospitalization Continue current regimen VIRY is working to help find patient a new place to live since he apparently cannot return to his former
[2017-08-02] MEDS: ZOLPIDEM 10 MG TAB PO PRN (21:02)
[2017-08-02] MEDS: ASENAPINE 5 MG TAB SUBLINGUAL SCH (21:02)
[2017-08-02] MEDS: CYCLOBENZAPRINE 10 MG TAB PO PRN (21:02)
[2017-08-03] MEDS: BUTALB/APAP/CAFF 50-325-40MG TAB PO PRN ×3 (05:46→14:07)
[2017-08-03] MEDS: clonazePAM 1 MG TAB PO PRN ×3 (05:46→23:55)
[2017-08-03] MEDS: buPROPion XL 300 MG TAB.ER.24H PO SCH (08:09)
[2017-08-03] MEDS: GABAPENTIN 400 MG CAP PO SCH ×4 (08:09→21:17)
[2017-08-03] MEDS: FAMOTIDINE 20 MG TAB PO SCH ×2 (08:58→21:19)
[2017-08-03] MEDS: METOPROLOL SUCCINATE (ER) 50 MG TAB.ER.24H PO SCH (08:58)
[2017-08-03] MEDS: CYCLOBENZAPRINE 10 MG TAB PO PRN (17:05)
[2017-08-03] MEDS: ASENAPINE 5 MG TAB SUBLINGUAL SCH (20:07)
--- NOTE | 2017-08-03 20:48 | P.PN ---
Progress Note - Text Progress Note Date: 08/03/17 Interval History: Patient interviewed with SW in front of nurses station today. Patient was informed that a bed is now available at [facility] and he will discharge today. Patient became exasperated refusing to listen or be reasonable. Patient ultimately stated he would refuse transfer despite multiple attempts to reason with him from various staff members. Patient was informed he will discharge today and that the decision had been made. Mental Status Exam: Appearance: alert, somewhat disheveled , appears stated age, steady gait Behavior: no psychomotor agitation+++, no abnormal movements, fair eye contact Attitude: cooperative Speech: normal rate, rhythm, fluency, articulation, volume, and prosody; primary language: Cymro Mood: irritable Affect: congruent, reactive Thought processes: irrational Thought content: patient does not appear to be responding to internal stimuli; patient denies auditory and visual hallucinations, no delusions appreciated Insight: diminished Judgment: diminished Cognitive: oriented to all 3 spheres, average intelligence Plan: Discharge to Prescriptions printed and provided Patient has scheduled appointments and will follow up OP with [facility]
[2017-08-03] MEDS: ZOLPIDEM 10 MG TAB PO PRN (21:17)
[2017-08-04] MEDS: BUTALB/APAP/CAFF 50-325-40MG TAB PO PRN ×4 (05:28→20:10)
[2017-08-04] MEDS: buPROPion XL 300 MG TAB.ER.24H PO SCH (08:51)
[2017-08-04] MEDS: METOPROLOL SUCCINATE (ER) 50 MG TAB.ER.24H PO SCH (08:51)
[2017-08-04] MEDS: GABAPENTIN 400 MG CAP PO SCH ×4 (08:52→20:05)
[2017-08-04] MEDS: FAMOTIDINE 20 MG TAB PO SCH ×2 (08:54→20:05)
[2017-08-04] MEDS: CYCLOBENZAPRINE 10 MG TAB PO PRN ×2 (08:55→17:49)
[2017-08-04] MEDS: clonazePAM 1 MG TAB PO PRN ×2 (08:55→17:49)
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
[2017-08-04] MEDS: ASENAPINE 5 MG TAB SUBLINGUAL SCH (20:05)
[2017-08-04] MEDS: ZOLPIDEM 10 MG TAB PO PRN (20:11)
[2017-08-05] MEDS: clonazePAM 1 MG TAB PO PRN ×3 (01:24→23:44)
[2017-08-05] MEDS: BUTALB/APAP/CAFF 50-325-40MG TAB PO PRN ×4 (01:24→21:05)
[2017-08-05] MEDS: buPROPion XL 300 MG TAB.ER.24H PO SCH (08:00)
[2017-08-05] MEDS: GABAPENTIN 400 MG CAP PO SCH ×4 (08:00→21:03)
[2017-08-05] MEDS: FAMOTIDINE 20 MG TAB PO SCH ×2 (08:57→21:23)
[2017-08-05] MEDS: METOPROLOL SUCCINATE (ER) 50 MG TAB.ER.24H PO SCH (08:58)
[2017-08-05] MEDS: CYCLOBENZAPRINE 10 MG TAB PO PRN (12:15)
--- NOTE | 2017-08-05 14:20 | PN ---
PROGRESS NOTE DATE OF SERVICE: 08/05/2017. CHIEF COMPLAINT: The patient was admitted due to disorganized behavior. He was not taking care of his basic needs. He had not been taking medications appropriately. He had been hoarding items including garbage. INTERVAL HISTORY: The patient has been doing fair. He had a quiet evening last night. He slept well today. He has been up and about. He is fairly vague about the issues relating to his current situation. I reviewed with the patient the note of Dr. Reeves from yesterday in regards to discharge planning. The patient continues to persist with the idea that he would not go to [facility]. He talked about not wanting to go to any senior living. He was not clear about details or why he resist that. He suggested that he might be able to move in with his mother. He said that overall he was doing fair today. He thought he could just be discharged to the street and that he could manage his needs. He has not had change in his general health. He appears to tolerate his psychotropic medications. MENTAL STATUS: Patient gave fair eye contact. He was slowed in his manner was noteworthy that he was wearing socks on his hands, though was not able to describe why he was doing that other than something about air-conditioning and it was noted that he was trying to open up a plastic wrapper and a small piece of candy that was quite difficult for him with the socks on. He gave fair eye contact. Psychomotor activity was slowed speech was monotone and soft. He answered questions with brief responses. Some of the time his answers were appropriate to questions asked and at other times he was tangential. His affect was blunted. His mood reserved. It was difficult to say if he was distressed. His manner suggested some persistence of thought disorder. ASSESSMENT: I will continue the current diagnosis and treatment plan. We will continue to make efforts to engage the patient in individual and group therapeutic activities. The patient did attend a group today though he had not been attending groups yesterday in spite of the fact that he says he goes to groups. We talked about discharge planning issues. It is not clear what is anticipated in terms of senior living placement. We will continue to focus on stabilization and discharge planning. MMODL / IJN: [id number] /
[2017-08-05] MEDS: ASENAPINE 5 MG TAB SUBLINGUAL SCH (21:02)
[2017-08-05] MEDS: ZOLPIDEM 10 MG TAB PO PRN (21:04)
[2017-08-06] MEDS: BUTALB/APAP/CAFF 50-325-40MG TAB PO PRN ×4 (05:55→20:21)
[2017-08-06] MEDS: CYCLOBENZAPRINE 10 MG TAB PO PRN ×2 (05:55→12:51)
[2017-08-06 07:05] VITALS: TEMP 97.9
[2017-08-06] MEDS: METOPROLOL SUCCINATE (ER) 50 MG TAB.ER.24H PO SCH (07:50)
[2017-08-06] MEDS: FAMOTIDINE 20 MG TAB PO SCH ×2 (07:51→23:04)
[2017-08-06] MEDS: clonazePAM 1 MG TAB PO PRN ×3 (07:52→20:21)
[2017-08-06] MEDS: GABAPENTIN 400 MG CAP PO SCH ×4 (07:52→20:20)
[2017-08-06] MEDS: buPROPion XL 300 MG TAB.ER.24H PO SCH (07:52)
[2017-08-06] MEDS: ASENAPINE 5 MG TAB SUBLINGUAL SCH (20:20)
[2017-08-06] MEDS: ZOLPIDEM 10 MG TAB PO PRN (20:20)
--- NOTE | 2017-08-06 22:11 | PN ---
PROGRESS NOTE DATE OF SERVICE: 08/06/2017. CHIEF COMPLAINT: The patient was admitted due to disorganized behavior. He was not taking care of his basic needs. He had not been taking medications appropriately. He had been hoarding items including garbage. INTERVAL HISTORY: Patient has been doing fairly well. He had a quiet evening last night. He slept well. Today he has been up and about. He comes out in the day area. He will interact a little with others. He tends to have a quiet manner. He has seemed to be a little more organized and appropriate in how he presents himself. It is noted that he had better grooming today. He was neatly groomed. Also yesterday, he was wearing socks on his hands, was unclear what the reason for that was. Today he was not wearing them. He seemed to be a little more responsive in the milieu. He has not had change in his general health. He tolerates his psychotropic medications. MENTAL STATUS: The patient gave fairly good eye contact. Psychomotor activity was slowed. Speech was monotone. He answered questions with direct responses. His thoughts were clear. His affect was a little blunted. His mood was quiet. It was noteworthy that he seemed to be a little more responsive and showed a little more engagement in the interview. He did appear to be distressed. There was no immediate evidence for thought disorder. ASSESSMENT: I will continue the current diagnosis and treatment plan. I will continue psychotropic medications the same. I reviewed with the patient that he apparently did receive Invega Sustenna 234 mg early in his hospitalization. He was in agreement with continuing that treatment. We will continue to focus on stabilization and discharge planning. EDIS / VIOLETA: [id number] /
[2017-08-07] MEDS: CYCLOBENZAPRINE 10 MG TAB PO PRN ×2 (01:47→11:54)
[2017-08-07] MEDS: FAMOTIDINE 20 MG TAB PO SCH ×2 (08:09→20:44)
[2017-08-07] MEDS: GABAPENTIN 400 MG CAP PO SCH ×4 (08:09→20:43)
[2017-08-07] MEDS: METOPROLOL SUCCINATE (ER) 50 MG TAB.ER.24H PO SCH (08:09)
[2017-08-07] MEDS: buPROPion XL 300 MG TAB.ER.24H PO SCH (08:09)
[2017-08-07] MEDS: clonazePAM 1 MG TAB PO PRN ×2 (08:10→17:50)
[2017-08-07] MEDS: BUTALB/APAP/CAFF 50-325-40MG TAB PO PRN ×3 (08:11→17:45)
[2017-08-07 09:59] VITALS: BMI 24.3
[2017-08-07] MEDS: ASENAPINE 5 MG TAB SUBLINGUAL SCH (20:43)
[2017-08-07] MEDS: ZOLPIDEM 10 MG TAB PO PRN (20:45)
--- NOTE | 2017-08-07 22:23 | P.PN ---
Subjective Principal diagnosis: Schizophrenia Interval History: Patient interviewed in his bedroom today as he refused summons to nurses station. Patient continues to refuse transfer to [facility]. His rationale for such is more vague than usual stating that he just doesn't want to go because of "what that place is." Patient is unable to elaborate further. Patient is compliant with his medications. He appears to have recently showered although his clothing is disheveled . Patient is attending all meals. He is sleeping well. He has not required any emergency medication. Patient denies SI/ HI/AVH. Staff do report patient has been frequently masturbating which he was upon entry into room today although he quickly concealed himself and stopped. It is uncertain how excessive this behavior is, but at present it is noted. No interventions are warranted at this time. Mental Status Exam: Appearance: alert, somewhat disheveled, appears stated age, steady gait Behavior: psychomotor agitation+++, no abnormal movements, fair eye contact Attitude: cooperative Speech: normal rate, rhythm, fluency, articulation, volume, and prosody; primary language: Turkmen Mood: dysphoric Affect: congruent, reactive Thought processes: concrete Thought content: patient does not appear to be responding to internal stimuli; patient denies auditory and visual hallucinations, no delusions appreciated Insight: diminished Judgment: diminished Cognitive: oriented to all 3 spheres, average intelligence Plan: Discharge to once bed is available and patient can be convinced to go Continue current regimen Patient has scheduled appointments and will follow up OP with [facility] Objective - Vital Signs Vital signs: Vital Signs Temp 97.9 F 08/07/17 05:31 Pulse 81 08/07/17 05:31 Resp 16 08/07/17 05:31 BP 139/88 08/07/17 05:31 Pulse Ox 97 07/30/17 08:45 Intake & Output 08/07/17 08/07/17 08/08/17 06:59 18:59 06:59 Weight 76.827 kg Assessment and Plan (1) Schizophrenia Current Visit: Yes Status: Acute Priority: High Code(s): F20.9 - SCHIZOPHRENIA, UNSPECIFIED SNOMED Code(s): 74326568
[2017-08-08] MEDS: clonazePAM 1 MG TAB PO PRN ×2 (03:45→13:06)
[2017-08-08 03:47] VITALS: RESP 18
[2017-08-08] MEDS: METOPROLOL SUCCINATE (ER) 50 MG TAB.ER.24H PO SCH (08:59)
[2017-08-08] MEDS: buPROPion XL 300 MG TAB.ER.24H PO SCH (09:00)
[2017-08-08] MEDS: GABAPENTIN 400 MG CAP PO SCH ×2 (09:00→13:06)
[2017-08-08] MEDS: FAMOTIDINE 20 MG TAB PO SCH (09:00)
[2017-08-08] MEDS: BUTALB/APAP/CAFF 50-325-40MG TAB PO PRN ×2 (09:01→13:07)
[2017-08-08 09:53] VITALS: BP 142/80; PULSE 110
[2017-08-08] MEDS ORDERED: clonazePAM 1 MG TAB PO STA (14:17)
--- NOTE | 2017-09-04 00:44 | P.DS ---
Providers Date of admission: 07/24/17 16:49 Expected date of discharge: 08/08/17 Attending physician: Ethan Reeves DO Consults: 07/24/17 18:09 Consult Physician Routine Consulting Provider: Adela Mendosa Reason/Comments: H and P Do you want consulting provider notified?: Already Contacted Primary care physician: Hiram Lopez Charbal - Discharge Diagnosis(es) (1) Schizophrenia Status: Acute Priority: High Hospital Course: HOSPITAL COURSE: * Legal status at discharge: Voluntary (has legal guardian) * Compliant with medications: Mostly * Reported adverse side effects: No * Required restraints/seclusion: No * Emergency Medication administered: Yes * Attended group, recreational, activity therapies: Rarely Patient is a 27-year-old male with a history of refractory schizophrenia who presented to the inpatient unit after failing to show up to 2 med check appointments in a pickup order was requested by his patient sitter. Per the petition the patient has been urinating and defecating on the floor of his bedroom, noncompliant with medications, and attending ADLs or eating/drinking well.. Patient was admitted to the inpatient unit for evaluation. Prior to initial inpatient interview without prompting patient had eaten breakfast and showered. His hair was tangled hold somewhat disheveled but he was otherwise clean. Patient agreed to stay in the hospital 3-4 days to work with his sleep. He reported difficulty both falling and staying asleep and wanted to get started back on Ambien. During interviews with attending, patient was able to hold himself together better than others on the unit but nonetheless was floridly psychotic at various times a day. He would often go in his room and rant talking to himself. When approached during these times, patient was able to voluntarily suppress them at least for short period of time. He was not aggressive. He was selectively compliant with medications but he did take his Saphris. On day 3 after patient learned that he couldn't sign himself out, patient began to decompensate. He did not understand this at all. Patient did not understand he had a guardian despite being informed of such multiple times. He maintained that he did sign himself out despite multiple multiple explanations. Patient was told that he could not leave the hospital until a safe discharge plan was established. Patient's mother, his legal guardian, felt it was in patient's best interest discharged to a correction or transitioning back to his own care. Patient became irate and told he was going to discharge to correction. He rejected this idea entirely. A discharge date was set and then canceled due to him refusing such. A second discharge date was set with his mother present and patient was discharged to [facility]. During hospital course patient did urinating in his room somewhat, and asked about this he would deny it. He was never witnessed doing this. family meeting completed with pt's mom and grandma to discuss d/c plans. Pt chose not to attend, but came in after and talked privately with mom and grandma. Pt has no other appropriate housing other than a correction at this time. Attending psychiatrist also attended meeting and discussed with pt's mom pt's progress. Pt has presented as improved other than when discussing dc to correction. Pt then becomes loud and agitated stating he wants to stay in the hospital. Otherwise, pt has been calm and cooperative, attending groups and compliant with medications. Mom states she plans on going to the court to discuss getting a co-guardian, as she doesn't feel she can "do this anymore, I need help". Several staff including charge nurse were involved in pt's d/c, assisting correction staff with pt's belongings, rx and dc papers. Pt has [facility] appts set up for tomorrow with Delfino. He has medicaid to cover rx and aftercare. t/c with pt's mom to discuss possible d/c plans today. Mom/Guardian supports plan to pursue [facility] correction today and added that she will come in at 130 to talk to him prior to his 2pm machine operator picker. Updated tx team, who are all in agreement with plan to move forward with dc despite pt's refusal, as no other options are appropriate or safe at this time. MENTAL STATUS EXAM: Appearance: alert, disheveled , appears stated age, steady gait Behavior: psychomotor agitation+++, no abnormal movements, poor eye contact Attitude: overall uncooperative until Speech: loud, fast; primary language: Sinhala Mood: angry Affect: labile Thought processes: circumstantial, patient will derail but can be redirected into linear processing for short periods of time Thought content: patient does not appear to be responding to internal stimuli , he denies auditory and visual hallucinations, he's floridly delusional and agitated with his angry mood fueling his feelings of being persecuted, denies SI /HI Insight: poor Judgment: poor Cognitive: oriented to all 3 spheres, average intelligence Patient Condition at Discharge: Stable Plan - Discharge Summary New Discharge Prescriptions: New Asenapine [Saphris] 10 mg SUBLINGUAL HS #14 tab buPROPion XL [Wellbutrin XL] 300 mg PO DAILY #14 tab.er.24h clonazePAM [KlonoPIN] 1 mg PO TID PRN #21 tab PRN Reason: Anxiety Metoprolol Succinate (ER) [Toprol XL] 50 mg PO DAILY #14 tab.er.24h Zolpidem [Ambien] 10 mg PO HS PRN #7 tab PRN Reason: Insomnia Continue Gabapentin 800 mg PO QID #56 tablet Discontinued buPROPion HCL [Wellbutrin XL] 300 mg PO DAILY Asenapine Maleate [Saphris] 10 mg SL HS No Action Cyclobenzaprine [Flexeril] 10 mg PO BID PRN PRN Reason: Muscle Spasm Butalb/APAP/Caff 50-325-40Mg [Fioricet 50-325-40] 1 tab PO BID PRN PRN Reason: Headache Discharge Medication List Asenapine [Saphris] 10 mg SUBLINGUAL HS #14 tab 08/03/17 [Rx] Gabapentin 800 mg PO QID #56 tablet 08/03/17 [Rx] Metoprolol Succinate (ER) [Toprol XL] 50 mg PO DAILY #14 tab.er.24h 08/03/17 [Rx ] Zolpidem [Ambien] 10 mg PO HS PRN #7 tab 08/03/17 [Rx] buPROPion XL [Wellbutrin XL] 300 mg PO DAILY #14 tab.er.24h 08/03/17 [Rx] clonazePAM [KlonoPIN] 1 mg PO TID PRN #21 tab 08/03/17 [Rx] Butalb/APAP/Caff 50-325-40Mg [Fioricet 50-325-40] 1 tab PO BID PRN 08/28/17 [ History] Cyclobenzaprine [Flexeril] 10 mg PO BID PRN 08/28/17 [History] Follow up Appointment(s)/Referral(s): [facility] [Outside] - 08/09/17 10:30 am (08-09-17 @ 10:30 with Delfino ramos Edson 08-09-17 @ 2:[address] Monge ) Anna Gandhi MD [Primary Care Provider] - 1-2 days Patient Instructions/Handouts: Schizophrenia (DC) Activity/Diet/Wound Care/Special Instructions: No alcohol or street drugs, activity as tolerated, diet as tolerated, remove firearms from home. Call 911 or crisis line if having thoughts to hurt himself or anyone else. Follow up with outpatient provider as set up at time of discharge. Discharge Disposition: HOME SELF-CARE
== END 2017-08-08 14:27 | disposition home or self-care (01) | DRG 885 ==
LOC: EC 12:48 → 3MHU 16:49
PROVIDERS: ADMIT Psychiatry & Neurology Psychiatry; ATTEND Psychiatry & Neurology Psychiatry
DX: F20.9 Schizophrenia, unspecified (principal); G25.71 Drug induced akathisia; F41.0 Panic disorder [episodic paroxysmal anxiety]; G89.29 Other chronic pain; T50.996A Underdosing of other drugs, medicaments and biological substances, initial encounter; M51.36 Other intervertebral disc degeneration, lumbar region; F12.10 Cannabis abuse, uncomplicated; R45.1 Restlessness and agitation; T50.995A Adverse effect of other drugs, medicaments and biological substances, initial encounter; R00.0 Tachycardia, unspecified; Z79.899 Other long term (current) drug therapy; Z88.8 Allergy status to other drugs, medicaments and biological substances
CPT/HCPCS: 80306; 82075; 99285

== ENCOUNTER 2017-08-31 13:56 | Inpatient (IN) | payer MEDICAID, OTHER ==
--- NOTE | 2017-08-31 15:22 | ED ---
Psych HPI - General Chief Complaint: Psychiatric Symptoms Stated Complaint: EPS eval Time Seen by Provider: 08/31/17 14:05 Source: patient, police Mode of arrival: ambulatory - History of Present Illness Initial Comments: 89 years old male he has a history of psych disorders child believes that his Crystal Is a Density and Switching His Meds Believe H and Making Him Feel in His Pants He Thinks That He Is Making Him Do Things and Child Is Moving His Bowels and Now Avoiding the Urinating and Inappropriate Places and Is Leaving at Home without the Authorization. He Has Had That His Hand Is a Suicidal and Homicidal He Tried to Hang Himself with a Bowel Movement and Somehow His Identity Is Being Mixed with This Other Person Patient Is Referring to. I'm Not Sure If Is a Result of a Dilution. Review of System As Far As Medical Complaints or Concern That Some Unremarkable He Denies Any Street Drugs He Denies alcohol position denies any voices. - Related Data Home Medications Medication Instructions Recorded Confirmed Butalb/APAP/Caff 50-325-40Mg 1 tab PO BID PRN 08/28/17 08/31/17 [Fioricet 50-325-40] Cyclobenzaprine [Flexeril] 10 mg PO BID PRN 08/28/17 08/31/17 Previous Rx's Medication Instructions Recorded Asenapine [Saphris] 10 mg SUBLINGUAL HS #14 tab 08/03/17 Gabapentin 800 mg PO QID #56 tablet 08/03/17 Metoprolol Succinate (ER) [Toprol 50 mg PO DAILY #14 tab.er.24h 08/03/17 XL] Zolpidem [Ambien] 10 mg PO HS PRN #7 tab 08/03/17 buPROPion XL [Wellbutrin XL] 300 mg PO DAILY #14 tab.er.24h 08/03/17 clonazePAM [KlonoPIN] 1 mg PO TID PRN #21 tab 08/03/17 Allergies Allergy/AdvReac Type Severity Reaction Status Date / Time aripiprazole [From Abilify] Allergy Unknown Verified 08/31/17 14:03 fluphenazine enanthate Allergy Unknown Verified 08/31/17 14:03 [From Prolixin] fluphenazine HCl Allergy Unknown Verified 08/31/17 14:03 [From Prolixin] haloperidol [From Haldol] Allergy Unknown Verified 08/31/17 14:03 haloperidol lactate Allergy Unknown Verified 08/31/17 14:03 [From Haldol] paliperidone [From Invega] Allergy Unknown Verified 08/31/17 14:03 risperidone [From Risperdal] Allergy Unknown Verified 08/31/17 14:03 Review of Systems ROS Statement: Those systems with pertinent positive or pertinent negative responses have been documented in the HPI. ROS Other: All systems not noted in ROS Statement are negative. Past Medical History Past Medical History: No Reported History Additional Past Medical History / Comment(s): Schizophrenia, right arm fracture , degenerative disc to lower back, and right wrist plate and screws History of Any Multi-Drug Resistant Organisms: None Reported Past Surgical History: Orthopedic Surgery Additional Past Surgical History / Comment(s): mouth surgery, reduction of right arm fracture. Past Psychological History: Anxiety, Panic Disorder, Schizophrenia Smoking Status: Never smoker Past Alcohol Use History: Occasional Past Drug Use History: Marijuana, Prescription Drug Abuse General Exam - General Exam Comments Initial Comments: General: The patient is awake and alert, in no distress, and does not appear acutely ill. Skin: Skin is warm and dry and no rashes or lesions are noted. Eye: Pupils are equal, round and reactive to light, extra-ocular movements are intact; there is normal conjunctiva bilaterally. Ears, nose, mouth and throat: There are moist mucous membranes and no oral lesions. Neck: The neck is supple, there is no tenderness or JVD. Cardiovascular: There is a regular rate and rhythm. No murmur, rub or gallop is appreciated. Respiratory: To auscultation bilateral, no wheezing no rhonchi no distress respiratory mendoza noticed Gastrointestinal: Soft, non-distended, non-tender abdomen without masses or organomegaly noted. There is no rebound or guarding present. Bowel sounds are unremarkable. Back: There is no tenderness to palpation in the midline. There is no obvious deformity. Musculoskeletal: Normal ROM, no tenderness, There is no pedal edema. There is no calf tenderness or swelling. No cords were appreciated. Neurological: CN II-XII intact, Cranial nerves III through XII are intact. There are no obvious motor or sensory deficits. Coordination appears grossly intact. Speech is normal. Psychiatric: Cooperative, obese depression noticed by the he refers to another person who has a suicidal ideation and homicidal ideation he believes somebody stole his identity and they're messing him up him a based on this these delusions seems like he is suffering from psychosis at this time Limitations: no limitations Course Vital Signs 08/31/17 13:59 Temperature 97.7 F Pulse Rate 119 H Respiratory 18 Rate Blood Pressure 139/89 O2 Sat by Pulse 97 Oximetry I did speak with the RN from Department of psychiatry she stated psychiatrist bonsai tender with evaluate him himself Disposition Clinical Impression: Psychosis Disposition: ADMITTED IP TO THIS HOSP Condition: Good Referrals: Anna Gandhi MD [Primary Care Provider] - 1-2 days
[2017-08-31] MEDS: BUTALB/APAP/CAFF 50-325-40MG TAB PO PRN (18:55)
[2017-08-31] MEDS: clonazePAM 1 MG TAB PO PRN (18:55)
[2017-08-31] MEDS: CYCLOBENZAPRINE 10 MG TAB PO PRN (18:55)
[2017-08-31] MEDS: ASENAPINE 5 MG TAB SUBLINGUAL SCH (20:19)
[2017-08-31] MEDS: GABAPENTIN 400 MG CAP PO SCH (20:19)
[2017-08-31] MEDS: ZOLPIDEM 10 MG TAB PO PRN (20:23)
[2017-09-01] MEDS: buPROPion XL 300 MG TAB.ER.24H PO SCH (08:52)
[2017-09-01] MEDS: GABAPENTIN 400 MG CAP PO SCH ×4 (08:52→20:06)
[2017-09-01] MEDS: METOPROLOL SUCCINATE (ER) 50 MG TAB.ER.24H PO SCH (08:52)
[2017-09-01] MEDS: clonazePAM 1 MG TAB PO PRN ×2 (08:54→16:35)
[2017-09-01] MEDS: BUTALB/APAP/CAFF 50-325-40MG TAB PO PRN ×4 (08:54→17:27)
[2017-09-01] MEDS: traMADol 50 MG TAB PO PRN ×2 (12:42→20:06)
[2017-09-01] MEDS ORDERED: WATER FOR INJECTION, STERILE 10 ML IV ONE (16:05)
[2017-09-01] MEDS: ZIPRASIDONE 20 MG VIAL IM PRN (16:06)
--- NOTE | 2017-09-01 16:24 | P.CONS ---
History of Present Illness - Reason for Consult Hypertension, medical clearance - History of Present Illness 27-year-old admitted for the acute psychotic has psychosis patient was recently discharged from the hospital for the same condition. Patient denied any fever chills patient is complaining of low back pain requesting for the note: Tramadol. Patient denied any fever chills nausea vomiting dysuria. Review of Systems REVIEW OF SYSTEMS: CONSTITUTIONAL: No fever, no malaise, no fatigue. HEENT: No recent visual problems or hearing problems. Denied any sore throat. CARDIOVASCULAR: No chest pain, orthopnea, PND, no palpitations, no syncope. PULMONARY: No shortness of breath, no cough, no hemoptysis. GASTROINTESTINAL: No diarrhea, no nausea, no vomiting, no abdominal pain. Normoactive bowel sounds. NEUROLOGICAL: No headaches, no weakness, no numbness. HEMATOLOGICAL: Denies any bleeding or petechiae. GENITOURINARY: Denies any burning micturition, frequency, or urgency. MUSCULOSKELETAL/RHEUMATOLOGICAL: Denies any joint pain, swelling, or any muscle pain. ENDOCRINE: Denies any polyuria or polydipsia. The rest of the 14-point review of systems is negative. Past Medical History Past Medical History: No Reported History Additional Past Medical History / Comment(s): Schizophrenia, right arm fracture , degenerative disc to lower back, and right wrist plate and screws History of Any Multi-Drug Resistant Organisms: None Reported Past Surgical History: Orthopedic Surgery Additional Past Surgical History / Comment(s): mouth surgery, reduction of right arm fracture. Smoking Status: Never smoker Medications and Allergies Home Medications Medication Instructions Recorded Confirmed Type Asenapine [Saphris] 10 mg SUBLINGUAL HS #14 tab 08/03/17 08/31/17 Rx Gabapentin 800 mg PO QID #56 tablet 08/03/17 08/31/17 Rx Metoprolol Succinate (ER) [Toprol 50 mg PO DAILY #14 tab.er.24h 08/03/17 Rx XL] Zolpidem [Ambien] 10 mg PO HS PRN #7 tab 08/03/17 08/31/17 Rx buPROPion XL [Wellbutrin XL] 300 mg PO DAILY #14 tab.er.24h 08/03/17 08/31/17 Rx clonazePAM [KlonoPIN] 1 mg PO TID PRN #21 tab 08/03/17 08/31/17 Rx Butalb/APAP/Caff 50-325-40Mg 1 tab PO BID PRN 08/28/17 08/31/17 History [Fioricet 50-325-40] Cyclobenzaprine [Flexeril] 10 mg PO BID PRN 08/28/17 08/31/17 History Allergies Allergy/AdvReac Type Severity Reaction Status Date / Time aripiprazole [From Abilify] Allergy Unknown Verified 08/31/17 21:17 fluphenazine enanthate Allergy Unknown Verified 08/31/17 21:17 [From Prolixin] fluphenazine HCl Allergy Unknown Verified 08/31/17 21:17 [From Prolixin] haloperidol [From Haldol] Allergy Unknown Verified 08/31/17 21:17 haloperidol lactate Allergy Unknown Verified 08/31/17 21:17 [From Haldol] paliperidone [From Invega] Allergy Unknown Verified 08/31/17 21:17 risperidone [From Risperdal] Allergy Unknown Verified 08/31/17 21:17 Physical Exam Vitals: Vital Signs Temp Pulse Resp BP Pulse Ox 09/01/17 07:07 97.5 F L 92 16 132/81 08/31/17 18:11 97.8 F 67 16 136/89 100 PHYSICAL EXAMINATION: GENERAL: The patient is alert and oriented x3, not in any acute distress. Well developed, well nourished. HEENT: Pupils are round and equally reacting to light. EOMI. No scleral icterus. No conjunctival pallor. Normocephalic, atraumatic. No pharyngeal erythema. No thyromegaly. CARDIOVASCULAR: S1 and S2 present. No murmurs, rubs, or gallops. PULMONARY: Chest is clear to auscultation, no wheezing or crackles. ABDOMEN: Soft, nontender, nondistended, normoactive bowel sounds. No palpable organomegaly. MUSCULOSKELETAL: No joint swelling or deformity. EXTREMITIES: No cyanosis, clubbing, or pedal edema. NEUROLOGICAL: Gross neurological examination did not reveal any focal deficits. SKIN: No rashes. Assessment and Plan Plan: #1 low chronic low back pain: Will use tramadol for pain. #2 history of screws of hernia management as per primary service and patient does have acute psychosis #3 marijuana use: Counseling was provided #4 hypertension: For which patient is on and him his medications which can be continued. we'll sign off at this point of time. Scars back if needed no further recommendations at this point of time.
[2017-09-01] MEDS: ZOLPIDEM 10 MG TAB PO PRN (20:06)
[2017-09-01] MEDS: ASENAPINE 5 MG TAB SUBLINGUAL SCH (20:06)
[2017-09-02] MEDS: clonazePAM 1 MG TAB PO PRN ×3 (00:39→16:48)
[2017-09-02] MEDS: BUTALB/APAP/CAFF 50-325-40MG TAB PO PRN ×5 (00:44→21:01)
--- NOTE | 2017-09-02 03:52 | P.HP ---
Psychiatric H&P - . H&P Date: 09/01/17 History & Physical: HPI: Patient is 27-year-old male who presented to the ER on a pickup order from a petition filed by his [facility] therapist. The petition related to the Tomas carter's cousin is stolen his identity and states he's been barricading himself in his room at his skilled nursing, yelling loudly, urinating in cups and on the floor, and leaving the skilled nursing without authorization. 08/31/2017 patient saw his outpatient psychiatrist Dr. Noonan who is completed a clinical certificate requesting patient be admitted. Patient was admitted and a second certificate has now been filed. Patient interviewed in his bedroom per his choice. He has been compliant with all PO medications since admission. Patient is quite confused about why he was petitioned and a certificate filed by his outpatient providers who he saw, said nothing of admission, gave him prescriptions, and then he reports "winding back up in the hospital again." Patient is unusually nonchalant about this, shrugging his shoulders and goes back to sorting items in his room he was doing upon arrival. Discussed increasing Saphris with patient today, which he has historically been opposed to dose changes. Patient is agreeable to a morning dose. He continues to exhibit paranoid thoughts and concerns about Panda as he has he did during his previous hospital course. He continues to appear to respond to internal stimuli at times, but he is otherwise calm during today's interview and expresses no new concerns. EPS: "Patient presents to the ER on a steel pickler order from a petition filed by his [facility] Therapist. The petition states that Tomas believes that his cousin Yariel stold his identity. It states that Tomas is barricading himself in his room and yelling disorganized thoughts, urinating on the floor and leaving the skilled nursing without authorization. Dr Monge at [facility] has cert'ed the patient to be admitted. During the assessment the patient stated someone is using my name, and I feel like I'm being set up. Patient stated he has been taking his meds, he is not sucidal and denies peeing on the floor or in cups. Patient did talk in detail regarding "Panda" who has stolen his idenity. Patient described "Panda" as someone who has stole his pills, smokes, doesnt take care of him self , and smells. He stated: "I get sick, when I'm around him." Cooker Loader felt as if the patient was speaking of himself when he referred to Panda." PSYCHIATRIC HISTORY: Extensive history of psychiatric hospitalization and outpatient visits with multiple antipsychotic treatment failures. To date, patient has only had a positive response with Seroquel XR and Saphris. PAST HISTORY: Additional Past Medical History / Comment(s):, right arm fracture, degenerative disc to lower back, and right wrist plate and screws Past Surgical History: Orthopedic Surgery Additional Past Surgical History / Comment(s): mouth surgery, reduction of right arm fracture. Smoking Status: Never smoker SOCIAL HISTORY: Education: HS diploma Occupational: [employer] Environmental: GH : no Lutheran: Worship Access to firearms: no Sexual orientation: heterosexual Safety at home: yes HOME MEDICATIONS: 3 Medication Instructions Recorded Confirmed Butalb/APAP/Caff 50-325-40Mg 1 tab PO BID PRN 08/28/17 08/31/17 [Fioricet 50-325-40] Cyclobenzaprine [Flexeril] 10 mg PO BID PRN 08/28/17 08/31/17 3 Medication Instructions Recorded Asenapine [Saphris] 10 mg SUBLINGUAL HS #14 tab 08/03/17 Gabapentin 800 mg PO QID #56 tablet 08/03/17 Metoprolol Succinate (ER) [Toprol 50 mg PO DAILY #14 tab.er.24h 08/03/17 XL] Zolpidem [Ambien] 10 mg PO HS PRN #7 tab 08/03/17 buPROPion XL [Wellbutrin XL] 300 mg PO DAILY #14 tab.er.24h 08/03/17 clonazePAM [KlonoPIN] 1 mg PO TID PRN #21 tab 08/03/17 ALLERGIES: 3 Allergy/AdvReac Type Severity Reaction Status Date / Time aripiprazole [From Abilify] Allergy Unknown Verified 08/31/17 21:17 fluphenazine HCl Allergy Unknown Verified 08/31/17 21:17 [From Prolixin] haloperidol [From Haldol] Allergy Unknown Verified 08/31/17 21:17 paliperidone [From Invega] Allergy Unknown Verified 08/31/17 21:17 risperidone [From Risperdal] Allergy Unknown Verified 08/31/17 21:17 fluphenazine enanthate AdvReac Severe Trismus Verified 09/02/17 02:32 [From Prolixin] haloperidol lactate AdvReac Severe Dystonic Verified 09/02/17 02:32 [From Haldol] reaction STRENGTHS/WEAKNESSES: Stable income, service connected Poor coping skills MENTAL STATUS EXAM: Appearance: alert, disheveled , appears stated age, steady gait Behavior: psychomotor agitation+++, no abnormal movements, fair eye contact Attitude: cooperative Speech: normal rate, rhythm, fluency, articulation, volume, and prosody; primary language: Serbian Mood: dysphoric Affect: labile Thought processes: vary throughout the day, overall linear while at times tangential Thought content: patient does appear to be responding to internal stimuli, he denies AVH. +delusions of persecution Insight: limited Judgment: limited Cognitive: oriented to all 3 spheres, average intelligence LABS: Patient has declined all ordered blood work due to fear of needles VITALS: 3 Temp 97.9 F 09/02/17 00:36 Pulse 82 09/02/17 00:36 Resp 18 09/02/17 00:36 BP 120/75 09/02/17 00:36 Pulse Ox 100 08/31/17 18:11 Assessment and Plan (1) Schizophrenia Current Visit: No Status: Acute Priority: High Code(s): F20.9 - SCHIZOPHRENIA, UNSPECIFIED SNOMED Code(s): 38183695 Plan: Continue hospitalization Increase Saphris to 5-mg SL QAM + 10-mg SL QHS Continue Wellbutrin Xl 300-mg PO QAM Klonopin 1-mg PO TID Neurontin 800-mg PO QID Toprol Xl 50-mg PO QAM Ambien 10-mg PO QHS Patient encouraged to attend all group, recreational, and activity therapies Time with Patient: Greater than 30
[2017-09-02] MEDS: traMADol 50 MG TAB PO PRN ×3 (06:07→21:02)
[2017-09-02] MEDS: buPROPion XL 300 MG TAB.ER.24H PO SCH (07:40)
[2017-09-02] MEDS: GABAPENTIN 400 MG CAP PO SCH ×4 (07:40→20:59)
[2017-09-02] MEDS: ASENAPINE 5 MG TAB SUBLINGUAL SCH ×2 (07:40→20:23)
[2017-09-02] MEDS: METOPROLOL SUCCINATE (ER) 50 MG TAB.ER.24H PO SCH (07:41)
[2017-09-02] MEDS: CYCLOBENZAPRINE 10 MG TAB PO PRN ×2 (07:44→21:04)
--- NOTE | 2017-09-02 12:15 | P.PN ---
Progress Note - Text Progress Note Date: 09/02/17 Interval history: Patient is seen today in cross coverage for Dr. Reeves. He is found in his room lying in bed. His eyes are closed through most of the evaluation. I went back into his room with female staff present and he still did not respond to come to the interview room. Per staff yesterday he was exhibiting some psychosis symptoms and he was given IM medication. Metal status exam: He is found in his room lying in bed with his eyes closed during much of the evaluation. He does open his eyes briefly and then closes them. He does mumble a few words at times very quietly. He does not show any agitation. Plan: We'll monitor his status and continue to cover this patient for Dr. Reeves through the weekend. We'll monitor for any psychosis symptoms and for medication side effects.
[2017-09-02] MEDS: ZOLPIDEM 10 MG TAB PO PRN (21:15)
[2017-09-03] MEDS: GABAPENTIN 400 MG CAP PO SCH ×4 (08:22→21:02)
[2017-09-03] MEDS: buPROPion XL 300 MG TAB.ER.24H PO SCH (08:22)
[2017-09-03] MEDS: ASENAPINE 5 MG TAB SUBLINGUAL SCH ×2 (08:22→21:02)
[2017-09-03] MEDS: METOPROLOL SUCCINATE (ER) 50 MG TAB.ER.24H PO SCH (08:23)
[2017-09-03] MEDS: clonazePAM 1 MG TAB PO PRN ×3 (08:25→23:04)
[2017-09-03] MEDS: traMADol 50 MG TAB PO PRN ×3 (08:25→18:49)
[2017-09-03] MEDS: BUTALB/APAP/CAFF 50-325-40MG TAB PO PRN ×4 (08:25→21:05)
[2017-09-03] MEDS: CYCLOBENZAPRINE 10 MG TAB PO PRN (13:40)
--- NOTE | 2017-09-03 16:35 | P.PN ---
Progress Note - Text Progress Note Date: 09/03/17 Interval history: Patient seen in [facility] today for Dr. Reeves. He is found in his room lying in bed. He is noted to have his head tilted to one side. I did return with staff present and he is able to move his head freely to midline. He does not seem to voice any adverse psychotropic medication side effects. Mental status exam: He is found in his room lying in bed, he is cooperative with the interview. He is not showing any significant agitation. He was noted to have his head tilted to one side, when I returned with staff present he was able to freely move his head to midline. He is noted to have ink markings from a pen on his hand and wrist area, there is also ink ellison on his shirt. He refers to these as "markings." He is also noted to have drawn on some Styrofoam cups. He does not verbalize any thoughts of harm to self or others. He has not verbalize any hallucinations. Thought processes seem to have some disorganization. Plan: We'll maintain current psychotropic medication regimen. We'll continue to monitor his status. Staff will continue to monitor regarding appropriate use of ballpoint pen. Dr. Reeves to resume care this patient starting tomorrow.
[2017-09-03] MEDS: ZOLPIDEM 10 MG TAB PO PRN (21:05)
[2017-09-04] MEDS: ASENAPINE 5 MG TAB SUBLINGUAL SCH ×2 (09:39→20:54)
[2017-09-04] MEDS: clonazePAM 1 MG TAB PO PRN ×2 (09:41→17:53)
[2017-09-04] MEDS: buPROPion XL 300 MG TAB.ER.24H PO SCH (09:42)
[2017-09-04] MEDS: METOPROLOL SUCCINATE (ER) 50 MG TAB.ER.24H PO SCH (09:42)
[2017-09-04] MEDS: GABAPENTIN 400 MG CAP PO SCH ×4 (09:42→22:37)
[2017-09-04] MEDS: BUTALB/APAP/CAFF 50-325-40MG TAB PO PRN ×3 (09:43→19:53)
[2017-09-04] MEDS: CYCLOBENZAPRINE 10 MG TAB PO PRN ×2 (11:20→20:55)
[2017-09-04] MEDS: traMADol 50 MG TAB PO PRN ×3 (11:20→17:54)
[2017-09-04] MEDS: ZOLPIDEM 10 MG TAB PO PRN (22:30)
[2017-09-05] MEDS: traMADol 50 MG TAB PO PRN ×3 (01:04→17:13)
[2017-09-05] MEDS: BUTALB/APAP/CAFF 50-325-40MG TAB PO PRN ×4 (07:55→22:58)
[2017-09-05] MEDS: buPROPion XL 300 MG TAB.ER.24H PO SCH (07:55)
[2017-09-05] MEDS: GABAPENTIN 400 MG CAP PO SCH ×4 (07:55→20:04)
[2017-09-05] MEDS: METOPROLOL SUCCINATE (ER) 50 MG TAB.ER.24H PO SCH (07:56)
[2017-09-05] MEDS: ASENAPINE 5 MG TAB SUBLINGUAL SCH ×2 (07:56→20:04)
[2017-09-05] MEDS: clonazePAM 1 MG TAB PO PRN ×2 (07:56→17:14)
--- NOTE | 2017-09-05 10:29 | P.PN ---
Progress Note - Text Interval history: The patient is found in his room he follows me to an interview room. The patient has an established diagnosis of schizophrenia and he is well known to me as I have cared for him over several admissions in the past. The patient states he is here under false pretenses. He feels that he needs to change his name because he keeps getting picked up when really the police are looking for someone else. Reportedly he was demonstrating disruptive behavior consistent with an acute exacerbation of his psychosis at the halfway. He denies any memory of that and states he has no symptoms. Spontaneously he describes several paranoid and persecutory thoughts. Staff report that he's been staying in the bathroom for most of the morning so far. It's documented he slept 6 hours last night. Mental status exam: The patient is alert he is dressed in several layers of clothing and appears bizarrely dressed. his hair is disheveled and is overgrown his beards overgrown. His close appeared dirty. The patient stands for the entire session. He is not pressured but he is quite verbose he has ongoing speech until interrupted. He speaks for several minutes demonstrating disorganization of thought. He slowly moves from topic to topic demonstrating tangential thinking and loose associations. He clearly describes paranoid and persecutory thinking. Insight and judgment are impaired. He denies having any psychiatric symptoms as we review several types. Plan: The patient is experiencing an acute exacerbation of his psychosis. He does have his deferral conference today. We are interested in pursuing a full treatment order for him in utilizing an injectable antipsychotic medication for him which has helped him remain more stable in the past. The patient does clearly have psychosis at baseline that this is an acute exacerbation and is causing dysfunction in his psychosocial abilities. Vital signs reviewed they are within normal limits. We will provide reality orientation when possible. We will continue to monitor him for safety. We will discuss antipsychotic options for him. He has listed all of the injectable Depo forms of antipsychotic medication as ALLERGIES but that is not in fact true
--- NOTE | 2017-09-05 10:33 | P.PN ---
Subjective Progress Note Date: 09/04/17 Principal diagnosis: * Schizophrenia INTERVAL HISTORY: * Compliant with medications: Yes, requires prompts * Reported adverse side effects: No * Required restraints/seclusion: No * Emergency Medication administered: Yes, last week * Attended group, recreational, activity therapies: Rarely MENTAL STATUS EXAM: Patient interviewed initially eating breakfast, he is awake, alert, denies AVH. He reports tolerating increased dose of Saphris "ok." He's recently bathed although his hair is somewhat tangled. His rabago is a bit unkempt, patient states he is growing it out for the winter. Patient denies any concerns. Later in the day, patient updated with plan for him to transition into the care of Dr. Horan. Patient became agitated pacing the room, voice became quite loud, and started cussing . It is clear during this interview is confused about recent events and despite multiple attempts to provide a chronological timeline to help process such, he does not currently have such faculties. Patient does not understand how he could have been seen at the hospital, discharge back to [facility], went to an OP appointment with Dr. Noonan who wrote him multiple prescriptions and reported he has a follow up appointment scheduled, get petition/cert at [facility] by his therapist/Saran. At least 5 attempts were made with patient both angry and later calm, and he is utterly confused. Patient encouraged to be cooperative with transition. * Appearance: alert, recently bathed but hair is tangled, has a rabago, appears stated age, wearing blue polo with green shorts black/borrego socks, steady gait * Behavior: psychomotor agitation+++, no abnormal movements, fair eye contact * Attitude: overall cooperative * Speech: loud at times bordering on yelling, fast but not pressured, spontaneous and fluent; primary language: Palestinian * Mood: angry * Affect: labile * Thought processes: erratic, tangential * Thought content: appears to be responding to internal stimuli, racing thoughts , paranoid delusions of persecution * Insight: limited and poor due to psychosis * Judgment: limited and poor due to psychosis * Cognitive: oriented to all 3 spheres, average intelligence PLAN: * Continue hospitalization * Patient will transition to Dr. Horan's team tomorrow Objective - Vital Signs Vital signs: Vital Signs Temp 97.7 F 09/03/17 06:48 Pulse 92 09/03/17 11:20 Resp 16 09/03/17 11:20 BP 125/75 09/03/17 11:20 Pulse Ox 100 08/31/17 18:11 Intake & Output 09/03/17 09/04/17 09/04/17 18:59 06:59 18:59 Weight 78.8 kg Assessment and Plan (1) Schizophrenia Current Visit: No Status: Acute Priority: High Code(s): F20.9 - SCHIZOPHRENIA, UNSPECIFIED SNOMED Code(s): 90712879
[2017-09-05] MEDS: CYCLOBENZAPRINE 10 MG TAB PO PRN (11:59)
[2017-09-05] MEDS: ZOLPIDEM 10 MG TAB PO PRN (20:04)
[2017-09-06] MEDS: GABAPENTIN 400 MG CAP PO SCH ×4 (08:09→21:08)
[2017-09-06] MEDS: ASENAPINE 5 MG TAB SUBLINGUAL SCH ×2 (08:09→21:07)
[2017-09-06] MEDS: METOPROLOL SUCCINATE (ER) 50 MG TAB.ER.24H PO SCH (08:09)
[2017-09-06] MEDS: buPROPion XL 300 MG TAB.ER.24H PO SCH (08:09)
[2017-09-06] MEDS: BUTALB/APAP/CAFF 50-325-40MG TAB PO PRN ×4 (08:13→22:17)
[2017-09-06] MEDS: clonazePAM 1 MG TAB PO PRN ×2 (08:14→21:09)
[2017-09-06] MEDS: traMADol 50 MG TAB PO PRN ×3 (09:10→22:17)
--- NOTE | 2017-09-06 09:56 | P.PN ---
Progress Note - Text Interval history: The patient is found in his room he reluctantly follows me to an interview room. Specifically he was seated in his bathroom for an extended period of time this morning. He reports meeting with a sales operations manager yesterday he states he's being framed. He indicates he has no intention of going to his court hearing this afternoon and states "I'll go there on my own time". He denies having any symptoms he feels he is here under false pretenses. He is adamantly opposed to having his medication changed. He does not wish to discuss the court hearing that will occur this afternoon. He indicates that he is eating and that he slept last night. Mental status exam: The patient is severely disheveled he continues to wear several layers of clothing which has not changed from yesterday. Hygiene is impaired it appears he has not washed his hair. Grooming is poor. He has spontaneous speech and we'll continue speaking for minutes unless interrupted. He is somewhat redirectable. He does demonstrate tangential thinking and loose associations. Throughout the session he demonstrates paranoid and persecutory thinking. He indicates almost everybody involved in his treatment is working against him to "push him backwards". He demonstrates agitation and irritability and once raises his voice quite loudly. He demonstrates no physical aggressiveness. He demonstrates no abnormal involuntary movements. Insight and judgment are poor. Plan: The patient will continue on his current psychotropics as he is agreeable to taking these only. He is opposed to me making any changes at this time. He does have court scheduled for this afternoon. Assuming we get a court order we will then initiate medication changes that unfortunately will be involuntarily. The patient is acutely psychotic he requires continued psychiatric hospitalization. He would demonstrate further decompensation if discharged at this time. Vital signs reviewed.
[2017-09-06] MEDS: CYCLOBENZAPRINE 10 MG TAB PO PRN (12:36)
[2017-09-06] MEDS ORDERED: WATER FOR INJECTION, STERILE 10 ML IV ONE (21:55)
[2017-09-06] MEDS ORDERED: ZIPRASIDONE 20 MG VIAL IM ONE (21:55)
[2017-09-06] MEDS: ZIPRASIDONE 20 MG VIAL IM PRN (22:09)
[2017-09-07] MEDS: traMADol 50 MG TAB PO PRN ×2 (05:03→16:37)
[2017-09-07] MEDS: BUTALB/APAP/CAFF 50-325-40MG TAB PO PRN ×4 (05:04→20:50)
[2017-09-07] MEDS: GABAPENTIN 400 MG CAP PO SCH ×4 (09:26→20:52)
[2017-09-07] MEDS: METOPROLOL SUCCINATE (ER) 50 MG TAB.ER.24H PO SCH (09:26)
[2017-09-07] MEDS: buPROPion XL 300 MG TAB.ER.24H PO SCH (09:26)
[2017-09-07] MEDS: ASENAPINE 5 MG TAB SUBLINGUAL SCH ×2 (09:26→20:14)
[2017-09-07] MEDS: clonazePAM 1 MG TAB PO PRN ×3 (09:29→22:40)
--- NOTE | 2017-09-07 10:30 | P.PN ---
Progress Note - Text Interval history: The patient is found in his room he reluctantly follows me to an interview room but then refuses to go into a room and wanted to speak in the hallway. The court did roshan a 60/90 day treatment order. I attempted to discuss this with the patient he states a court order does not exist as he was not there. The patient was asked numerous times yesterday if he wanted to attend his hearing and he reported he did not as it was not real. I discussed the need for us to add a medication for his psychosis and he adamantly refuses. We do need to initiate a medicine that has an injectable Depo form. He states that he is ALLERGIC to all of them and they all cause him to be suicidal however we know this is not true as he is demonstrated no true ALLERGY to any of them. There is suspicion that he had a dystonic reaction with Haldol. We discussed initiating invega and again he is refusing. Mental status exam: The patient is alert he has a very disheveled appearance he is dressed in multiple layers and is dressed in an odd fashion. He has poor hygiene and is malodorous. He has an ink pen hanging out that his left ear and he states it helps him here better. He has rubbed black ink all over his left upper extremity. His clothing is visibly soiled. He demonstrates a pressured disorganized thought process. He endorses ongoing paranoid and persecutory thoughts. He becomes agitated during the conversation and raises his voice. He demonstrates no physical aggressiveness. The session was ended due to his verbal agitation however. Insight and judgment are poor. He is demonstrating no abnormal involuntary movements. Plan: The patient will be started on an invega 6 mg daily. He will be given a Geodon injection if he refuses as he is now on a court order. We will continue the Saphris as written for now. We have no information that the patient has a true ALLERGY to invega. The patient has been on that medication in the past without demonstration of shortness of breath, rash, or any sign of anaphylaxis. We will monitor the patient for agitation. We will continue to monitor vital signs.
[2017-09-07] MEDS: PALIPERIDONE 6 MG TAB.ER.24 PO SCH (11:53)
[2017-09-07] MEDS: CYCLOBENZAPRINE 10 MG TAB PO PRN (16:38)
[2017-09-07] MEDS: ZOLPIDEM 10 MG TAB PO PRN (20:50)
[2017-09-08] MEDS: buPROPion XL 300 MG TAB.ER.24H PO SCH (09:05)
[2017-09-08] MEDS: GABAPENTIN 400 MG CAP PO SCH ×4 (09:05→21:36)
[2017-09-08] MEDS: CYCLOBENZAPRINE 10 MG TAB PO PRN (09:06)
[2017-09-08] MEDS: METOPROLOL SUCCINATE (ER) 50 MG TAB.ER.24H PO SCH (09:06)
[2017-09-08] MEDS: clonazePAM 1 MG TAB PO PRN ×2 (09:06→15:57)
[2017-09-08] MEDS: PALIPERIDONE 6 MG TAB.ER.24 PO SCH ×3 (09:06→09:56)
[2017-09-08] MEDS: traMADol 50 MG TAB PO PRN ×3 (09:06→21:36)
[2017-09-08] MEDS: BUTALB/APAP/CAFF 50-325-40MG TAB PO PRN ×4 (09:11→22:13)
[2017-09-08] MEDS: ZOLPIDEM 10 MG TAB PO PRN (20:06)
[2017-09-08] MEDS: ASENAPINE 5 MG TAB SUBLINGUAL SCH (20:06)
--- NOTE | 2017-09-08 22:10 | P.PN ---
Subjective Progress Note Date: 09/08/17 Principal diagnosis: * Schizophrenia INTERVAL HISTORY: * Compliant with medications: Yes, requires prompts * Reported adverse side effects: No * Required restraints/seclusion: No * Emergency Medication administered: Yes, last given day of court hearing, patient upset with outcome * Attended group, recreational, activity therapies: Rarely Patient interviewed in bedroom after he refused two summons to nurses station. Patient's room is in disarray and wreaks of urine. Upon entry, a pair of underwear is noted on his bathroom floor saturated in urine. Patient is sitting upon his bed which per housekeeping he urinated in last night staring blankly at the wall. Two styrofoam cups are on the floor each filled with a small amount of urine. Patient appears changed from previous exam. His mood and affect are no longer agitated and volatile but rather he appears today sad and sullen. His affect is tight with limited mobility, and his speech is of normal rate and volume. Patient still does not understand his current situation. He is confused, and he continues to tell staff that he is not on a court order although he has been compliant with PO Invega. Patient encouraged in a straightforward fashion to shower and clean his room up. He began to make comments about the urine not being his and was told that he was to shower regardless and that involved the use of shampoo and soap, and wash his cloths. Patient continued to attempt to explain, and was told to shower not speak. Patient as always tolerated feedback well. MENTAL STATUS EXAM: * Appearance: alert, disheveled, unkempt, clothing and hair exude a pungent smell of urine * Behavior: no psychomotor agitation or retardation, no abnormal movements, fair eye contact * Attitude: overall cooperative * Speech: normal rate, spontaneous and fluent; primary language: Sinhala * Mood: sad * Affect: constricted with limited mobility * Thought processes: linear to circumstantial * Thought content: appears to be responding to internal stimuli, racing thoughts , paranoid delusions of persecution * Insight: limited and poor due to psychosis * Judgment: limited and poor due to psychosis * Cognitive: oriented to all 3 spheres, average intelligence PLAN: * Continue hospitalization * Continue current regimen * Patient encouraged to clean up room and shower * If patient doesn't shower, staff will assist patient in doing so * Patient encouraged to work with staff washing his clothing * Patient instructed that once that after he showers, he should start attending groups * Discussed patient taking a more active role in his recovery so he can transition out of the hospital * will coordinate with [facility] once patient is psychiatrically stable for discharge to a less restricted environment Objective - Vital Signs Vital signs: Vital Signs Temp 97.7 F 09/08/17 09:05 Pulse 118 H 09/08/17 09:05 Resp 16 09/08/17 09:05 BP 152/73 09/08/17 09:05 Pulse Ox 100 08/31/17 18:11 Assessment and Plan (1) Schizophrenia Current Visit: No Status: Acute Priority: High Code(s): F20.9 - SCHIZOPHRENIA, UNSPECIFIED SNOMED Code(s): 62834329
[2017-09-09] MEDS: clonazePAM 1 MG TAB PO PRN ×3 (00:07→17:33)
[2017-09-09] MEDS: traMADol 50 MG TAB PO PRN ×3 (08:39→22:09)
[2017-09-09] MEDS: GABAPENTIN 400 MG CAP PO SCH ×4 (08:39→22:09)
[2017-09-09] MEDS: CYCLOBENZAPRINE 10 MG TAB PO PRN (08:39)
[2017-09-09] MEDS: METOPROLOL SUCCINATE (ER) 50 MG TAB.ER.24H PO SCH (08:39)
[2017-09-09] MEDS: buPROPion XL 300 MG TAB.ER.24H PO SCH (08:39)
[2017-09-09] MEDS: BUTALB/APAP/CAFF 50-325-40MG TAB PO PRN ×2 (08:40→14:13)
[2017-09-09] MEDS: PALIPERIDONE 6 MG TAB.ER.24 PO SCH (08:42)
[2017-09-09] MEDS: ASENAPINE 5 MG TAB SUBLINGUAL SCH (22:00)
[2017-09-09] MEDS: ZOLPIDEM 10 MG TAB PO PRN (22:14)
--- NOTE | 2017-09-10 04:36 | P.PN ---
Subjective Progress Note Date: 09/09/17 Principal diagnosis: * Schizophrenia INTERVAL HISTORY: * Compliant with medications: Yes, requires prompts * Reported adverse side effects: No * Required restraints/seclusion: No * Emergency Medication administered: Yes, last given day of court hearing, patient upset with outcome * Attended group, recreational, activity therapies: Rarely Patient reports EPS with Invega specifically "feet locking up," which is resolved with previously ordered Artane. Patient continues to be resistant to PO Invega, but will take it after multiple prompts from staff. Patient's room was cleaned today by housekeeping. Patient was encouraged, prompted, and ultimately did shower today. No new complaints from previous exam, patient is unhappy about court order, but this will likely not change. MENTAL STATUS EXAM: * Appearance: alert, recently showered, groomed, wearing clean clothing * Behavior: psychomotor agitation+, no abnormal movements, fair eye contact * Attitude: overall cooperative * Speech: normal rate, spontaneous and fluent; primary language: Ukrainian * Mood: "blah, boring, crazy" * Affect: constricted but still some limited reactivity * Thought processes: erratic and circumstantial * Thought content: does not appear to be responding to internal stimuli, racing thoughts, paranoid delusions of persecution * Insight: limited and poor due to psychosis * Judgment: limited and poor due to psychosis * Cognitive: oriented to all 3 spheres, average intelligence PLAN: * Continue hospitalization * Continue current regimen * Patient showered today, will attempt to encourage this again tomorrow * Discussed patient taking a more active role in his recovery so he can transition out of the hospital * will coordinate with [facility] once patient is psychiatrically stable for discharge to a less restricted environment Objective - Vital Signs Vital signs: Vital Signs Temp 97.7 F 09/08/17 09:05 Pulse 97 09/09/17 01:04 Resp 16 09/09/17 01:04 BP 128/78 09/09/17 01:04 Pulse Ox 100 08/31/17 18:11 Assessment and Plan (1) Schizophrenia Current Visit: No Status: Acute Priority: High Code(s): F20.9 - SCHIZOPHRENIA, UNSPECIFIED SNOMED Code(s): 48642006
[2017-09-10] MEDS: GABAPENTIN 400 MG CAP PO SCH ×4 (09:00→21:54)
[2017-09-10] MEDS: buPROPion XL 300 MG TAB.ER.24H PO SCH (09:00)
[2017-09-10] MEDS: CYCLOBENZAPRINE 10 MG TAB PO PRN ×2 (09:00→20:58)
[2017-09-10] MEDS: clonazePAM 1 MG TAB PO PRN ×3 (09:00→23:47)
[2017-09-10] MEDS: PALIPERIDONE 6 MG TAB.ER.24 PO SCH (09:00)
[2017-09-10] MEDS: METOPROLOL SUCCINATE (ER) 50 MG TAB.ER.24H PO SCH (09:00)
[2017-09-10] MEDS: BUTALB/APAP/CAFF 50-325-40MG TAB PO PRN ×4 (09:01→22:52)
[2017-09-10] MEDS: traMADol 50 MG TAB PO PRN ×2 (12:30→19:36)
[2017-09-10] MEDS: ASENAPINE 5 MG TAB SUBLINGUAL SCH (20:57)
[2017-09-10] MEDS: ZOLPIDEM 10 MG TAB PO PRN (20:59)
--- NOTE | 2017-09-10 21:41 | P.PN ---
Subjective Progress Note Date: 09/10/17 Principal diagnosis: * Schizophrenia INTERVAL HISTORY: * Compliant with medications: Yes, requires prompts * Reported adverse side effects: No * Required restraints/seclusion: No * Emergency Medication administered: None recently * Attended group, recreational, activity therapies: Rarely Patient presents to interview wishing to review series of timeline of events that lead to current hospitalization. Patient believes he is going to " if I continue taking Invega, this like killed me before" and then perpetrates on this and is unusually hard to redirect. Patient encouraged to continue to be compliant, and praised for his overall recent cooperation. MENTAL STATUS EXAM: * Appearance: alert, recently showered, groomed, wearing clean clothing * Behavior: psychomotor agitation+, no abnormal movements, fair eye contact * Attitude: overall cooperative * Speech: normal rate, spontaneous and fluent; primary language: Kyrgyz * Mood: "blah, boring, crazy" * Affect: constricted but still some limited reactivity * Thought processes: erratic and circumstantial * Thought content: does not appear to be responding to internal stimuli, racing thoughts, paranoid delusions of persecution * Insight: limited and poor due to psychosis * Judgment: limited and poor due to psychosis * Cognitive: oriented to all 3 spheres, average intelligence PLAN: * Continue hospitalization * Continue current regimen * Discussed patient taking a more active role in his recovery so he can transition out of the hospital * will coordinate with [facility] once patient is psychiatrically stable for discharge to a less restricted environment Objective - Vital Signs Vital signs: Vital Signs Temp 97.7 F 09/08/17 09:05 Pulse 127 H 09/10/17 09:00 Resp 16 09/10/17 09:00 BP 138/84 09/10/17 09:00 Pulse Ox 100 08/31/17 18:11 Intake & Output 09/09/17 09/10/17 09/10/17 18:59 06:59 18:59 Weight 79.5 kg Assessment and Plan (1) Schizophrenia Current Visit: No Status: Acute Priority: High Code(s): F20.9 - SCHIZOPHRENIA, UNSPECIFIED SNOMED Code(s): 59515292
[2017-09-10] MEDS: TRIHEXYPHENIDYL 2 MG TAB PO PRN (22:19)
[2017-09-10] MEDS: BACLOFEN 10 MG TAB PO PRN (22:19)
[2017-09-11] MEDS: traMADol 50 MG TAB PO PRN ×3 (02:36→21:10)
[2017-09-11] MEDS: PALIPERIDONE 6 MG TAB.ER.24 PO SCH (07:49)
[2017-09-11] MEDS: buPROPion XL 300 MG TAB.ER.24H PO SCH (07:50)
[2017-09-11] MEDS: METOPROLOL SUCCINATE (ER) 50 MG TAB.ER.24H PO SCH (07:50)
[2017-09-11] MEDS: BUTALB/APAP/CAFF 50-325-40MG TAB PO PRN ×3 (07:50→21:11)
[2017-09-11] MEDS: GABAPENTIN 400 MG CAP PO SCH ×4 (07:50→21:05)
[2017-09-11] MEDS: BACLOFEN 10 MG TAB PO PRN ×2 (09:22→21:40)
[2017-09-11] MEDS: TRIHEXYPHENIDYL 2 MG TAB PO PRN ×2 (09:22→21:56)
[2017-09-11] MEDS: clonazePAM 1 MG TAB PO PRN ×2 (09:22→17:31)
--- NOTE | 2017-09-11 18:04 | P.PN ---
Subjective Progress Note Date: 09/11/17 Principal diagnosis: * Schizophrenia INTERVAL HISTORY: * Compliant with medications: Yes, requires prompts * Reported adverse side effects: * Required restraints/seclusion: No * Emergency Medication administered: None recently * Attended group, recreational, activity therapies: Rarely Patient slept 6 hours last night. More calm today, but patient remains floridly delusional. Today he is fixated on PRN medications and certain staff. Patient is impatient waiting for his medication in line which was excessively long today. Patient's overall appearance remains clean and far more hygienic than recent intervention. Patient continues to maintain he doesn't need or have a guardian and is will not entertain the remote possibility she may be. MENTAL STATUS EXAM: * Appearance: alert, recently showered, groomed, wearing clean clothing * Behavior: psychomotor agitation+, no abnormal movements, fair eye contact * Attitude: overall cooperative * Speech: normal rate, spontaneous and fluent; primary language: Kyrgyz * Mood: "mellow and irritated" * Affect: full, reactive, congruent with mood * Thought processes: concrete and circumstantial * Thought content: does not appear to be responding to internal stimuli, racing thoughts, paranoid delusions of persecution * Insight: limited and poor due to psychosis * Judgment: limited and poor due to psychosis * Cognitive: oriented to all 3 spheres, average intelligence PLAN: * Continue hospitalization * Continue current regimen * Patient again encouraged to provide specimen for blood work * Discussed patient taking a more active role in his recovery so he can transition out of the hospital * will coordinate with [facility] once patient is psychiatrically stable for discharge to a less restricted environment Objective - Vital Signs Vital signs: Vital Signs Temp 97.7 F 09/08/17 09:05 Pulse 87 09/11/17 07:51 Resp 18 09/11/17 07:51 BP 121/79 09/11/17 07:51 Pulse Ox 100 08/31/17 18:11 Intake & Output 09/10/17 09/11/17 09/11/17 18:59 06:59 18:59 Weight 79.5 kg Assessment and Plan (1) Schizophrenia Current Visit: No Status: Acute Priority: High Code(s): F20.9 - SCHIZOPHRENIA, UNSPECIFIED SNOMED Code(s): 62094782
[2017-09-11] MEDS: ASENAPINE 5 MG TAB SUBLINGUAL SCH (21:05)
[2017-09-11] MEDS: ZOLPIDEM 10 MG TAB PO PRN (21:11)
[2017-09-12] MEDS: PALIPERIDONE 6 MG TAB.ER.24 PO SCH (08:11)
[2017-09-12] MEDS: METOPROLOL SUCCINATE (ER) 50 MG TAB.ER.24H PO SCH (08:11)
[2017-09-12] MEDS: buPROPion XL 300 MG TAB.ER.24H PO SCH (08:14)
[2017-09-12] MEDS: clonazePAM 1 MG TAB PO PRN (08:14)
[2017-09-12] MEDS: GABAPENTIN 400 MG CAP PO SCH ×4 (08:14→22:36)
[2017-09-12] MEDS: BUTALB/APAP/CAFF 50-325-40MG TAB PO PRN ×2 (08:14→11:43)
--- NOTE | 2017-09-12 09:45 | P.PN ---
Progress Note - Text Interval history: The patient is found in the dining room he follows me to an interview room. Staff report that the patient has been showing some mild improvement. Reportedly he will go into the shower but only get wet and then get out. He has not been allowing staff to help him wash his clothing which has been quite soiled. He does continue to eat. He reports he sleeping. He continues to deny having any psychiatric symptoms he frequently states "I do not have schizophrenia". He goes through the timeline of events prior to this admission several times. He continues to assert someone isusing his identity and he has been admitted up here wrongly. Mental status exam: The patient is alert he is disheveled hygiene is impaired but is mildly improved from when I seen him last. He continues to wear several layers of clothing. His thought process is not well organized. He maintains a normal tone of speech but constantly talks until interrupted. He describes a variety of delusional themes. He calmly describes his frustration with being here in the hospital and indicates he wants to return to [facility]. He is reporting no suicidal or homicidal ideation. He is endorsing no hallucinations however it's likely he continues to experience those. His insight and judgment remain impaired. He demonstrates no verbal or physical aggressiveness. He demonstrates no abnormal involuntary movements. Plan: The patient will be continued on his current medications. Our plan is to initiate Invega Sustenna if there is an indication that the oral Invega is providing benefit. Staff have informed me that he is complying with the oral dose as he prefers not to get the injection of Geodon if he refuses. An attempt again was made to discuss the fact that he is on a treatment order he continues to deny its existence. Vital signs reviewed they're within normal limits. The patient continues to refuse routine lab work. Once he is sufficiently stabilized returning to [facility] does appear appropriate.
[2017-09-12] MEDS: traMADol 50 MG TAB PO PRN (11:45)
[2017-09-12] MEDS: BACLOFEN 10 MG TAB PO PRN (12:54)
[2017-09-12] MEDS: ASENAPINE 5 MG TAB SUBLINGUAL SCH (22:35)
[2017-09-13] MEDS: BUTALB/APAP/CAFF 50-325-40MG TAB PO PRN ×4 (01:44→21:02)
[2017-09-13] MEDS: clonazePAM 1 MG TAB PO PRN ×3 (01:44→22:17)
[2017-09-13] MEDS: GABAPENTIN 400 MG CAP PO SCH ×4 (08:48→21:00)
[2017-09-13] MEDS: METOPROLOL SUCCINATE (ER) 50 MG TAB.ER.24H PO SCH (08:48)
[2017-09-13] MEDS: PALIPERIDONE 6 MG TAB.ER.24 PO SCH (08:48)
[2017-09-13] MEDS: buPROPion XL 300 MG TAB.ER.24H PO SCH (08:48)
--- NOTE | 2017-09-13 11:21 | P.PN ---
Progress Note - Text Interval history: The patient is found in his room he prefers to be interviewed there today. He describes having difficulty sleeping. I did reduce the amount of Fioricet available and he was frustrated by that. We discussed that he is on when necessary medications that have some addictive quality and that we need to start reducing those. He refuses the Saphris last evening but did take his invega. He continues to describe the same delusional thought content as yesterday. Mental status exam: The patient has a very disheveled appearance hygiene and grooming are impaired he is dressed in multiple layers. He is lying on the bed awake. Eye contact is intermittent. He relates feelings of frustration related to hospitalization and his medication management. He is reporting no suicidal or homicidal ideation. He continues to have a delusional thought content that impairs his insight and judgment. He demonstrates no abnormal involuntary movements he demonstrates no verbal or physical aggressiveness. Affect is bland today. Plan: The patient will continue on his current psychotropic medications we are allowing the invega more time to demonstrate efficacy and then we will transition to the invega susstena injection. We will continue to monitor him for safety and encourage his participation in the milieu. Vital signs reviewed. We will continue to reduce/eliminate unnecessary medications during the course of the hospitalization.
[2017-09-13] MEDS: traMADol 50 MG TAB PO PRN (17:54)
[2017-09-13] MEDS: ASENAPINE 5 MG TAB SUBLINGUAL SCH (21:00)
[2017-09-13] MEDS: ZOLPIDEM 10 MG TAB PO PRN (21:02)
[2017-09-13] MEDS: BACLOFEN 10 MG TAB PO PRN (22:16)
[2017-09-14] MEDS: traMADol 50 MG TAB PO PRN ×3 (00:50→21:34)
[2017-09-14] MEDS: buPROPion XL 300 MG TAB.ER.24H PO SCH (08:12)
[2017-09-14] MEDS: METOPROLOL SUCCINATE (ER) 50 MG TAB.ER.24H PO SCH (08:12)
[2017-09-14] MEDS: GABAPENTIN 400 MG CAP PO SCH ×4 (08:12→21:31)
[2017-09-14] MEDS: PALIPERIDONE 6 MG TAB.ER.24 PO SCH (08:12)
[2017-09-14] MEDS: clonazePAM 1 MG TAB PO PRN ×3 (08:13→23:28)
[2017-09-14] MEDS: BUTALB/APAP/CAFF 50-325-40MG TAB PO PRN ×3 (08:13→21:31)
--- NOTE | 2017-09-14 09:28 | P.PN ---
Progress Note - Text Interval history: The patient is found in the dining room he follows me to an interview room. He speaks at length regarding his concerns about being hospitalized. He states he is here inappropriately. He discusses his frustration with the court order. He continues to state that he is ALLERGIC to any antipsychotic that has an injectable form however we know this is not true. The patient has been taking the oral invega with no signs of ALLERGY. He states he would like to return to [facility] as soon as possible. Mental status exam: The patient is markedly disheveled he has food in his rabago he is dressed in several layers with the outer most shirt being visibly soiled and is on backwards. He continues to not washes clothing. He does not sit during the session and stands or leans on the table. Eye contact is intermittent. He has a constant stream of speech but is not pressured. He does demonstrate tangential thinking with some loose associations. He continues to feel persecuted and demonstrates paranoid thinking. Insight and judgment are impaired. Plan: The patient will continue on his current medications however we will reduce the Saphris to 5 mg at bedtime and increase Invega to 9 mg daily. Once we observe efficacy from the Invega we will proceed with initiating the depot form of the medication. We will continue to monitor him for safety and encourage his participation in the milieu. Reality orientation will be provided when possible. The patient remains quite symptomatic and requires further inpatient psychiatric stabilization.
[2017-09-14] MEDS: BACLOFEN 10 MG TAB PO PRN (15:35)
[2017-09-14] MEDS: ASENAPINE 5 MG TAB SUBLINGUAL SCH (21:31)
[2017-09-14] MEDS: ZOLPIDEM 10 MG TAB PO PRN (21:32)
[2017-09-15] MEDS ORDERED: HYDROcodone/APAP 5-325MG 1 EACH TAB ONE (09:00)
[2017-09-15] MEDS ORDERED: TRIHEXYPHENIDYL 2 MG TAB ONE (09:00)
[2017-09-15] MEDS ORDERED: traMADol 50 MG TAB ONE (09:00)
[2017-09-15] MEDS ORDERED: METOPROLOL SUCCINATE (ER) 50 MG TAB.ER.24H PO ONE (09:00)
[2017-09-15] MEDS ORDERED: BUTALB/APAP/CAFF 50-325-40MG TAB PO ONE (09:00)
[2017-09-15] MEDS ORDERED: PALIPERIDONE 3 MG TAB.ER.24 PO ONE (09:00)
[2017-09-15] MEDS ORDERED: BACLOFEN 10 MG TAB ONE (09:00)
[2017-09-15] MEDS ORDERED: GABAPENTIN 400 MG CAP ONE (09:00)
[2017-09-15] MEDS ORDERED: buPROPion XL 300 MG TAB.ER.24H PO ONE (09:00)
[2017-09-15] MEDS ORDERED: ZOLPIDEM 10 MG TAB ONE (09:00)
[2017-09-15] MEDS ORDERED: clonazePAM 1 MG TAB ONE (09:00)
[2017-09-15] MEDS ORDERED: ASENAPINE 5 MG TAB SUBLINGUAL ONE (09:00)
--- NOTE | 2017-09-15 22:53 | PN ---
PROGRESS NOTE DATE OF SERVICE DICTATION: 09/15/2017 INTERVAL HISTORY: The patient is found in his room. Staff reported that he was only out for breakfast, but otherwise has been isolating. The patient is frustrated that he is in the hospital. He states there is no petition to keep him here as he has no insight into the court order. He is angry that he is on the Invega as he does not want to be on a medicine that could be injectable. He again goes on to speak for several minutes at a time if not interrupted. MENTAL STATUS EXAM: The patient is alert. He is lying awake in bed. He is dressed in multiple layers. His room is quite malodorous, smelling of body odor and urine. He has a very disheveled appearance. Hygiene and grooming are poor. He demonstrates a frustrated and angry mood. He demonstrates no verbal or physical aggressiveness. However, he continues to have ongoing delusional thoughts that are mainly paranoid and persecutory in nature. Insight and judgment are poor. He is oriented to date, person, and place. PLAN: The patient remains acutely psychotic with manic features. We will continue the Invega at 9 mg daily. Our plan is to use the injectable form of the medication once it demonstrates some efficacy and we will discontinue the Saphris. We will continue to monitor him for safety encourage his participation in the milieu when appropriate and provide reality orientation when appropriate. He does have significant symptoms at baseline, but we need to see improvement in terms of his overall function, especially ADLs prior to discharge. EDIS / VIOLETA: [id number] /
[2017-09-16] MEDS: traMADol 50 MG TAB PO PRN ×3 (02:43→20:26)
[2017-09-16] MEDS: clonazePAM 1 MG TAB PO PRN ×3 (02:43→17:16)
[2017-09-16] MEDS: buPROPion XL 300 MG TAB.ER.24H PO SCH (09:08)
[2017-09-16] MEDS: METOPROLOL SUCCINATE (ER) 50 MG TAB.ER.24H PO SCH (09:08)
[2017-09-16] MEDS: PALIPERIDONE 3 MG TAB.ER.24 PO SCH (09:09)
[2017-09-16] MEDS: GABAPENTIN 400 MG CAP PO SCH ×4 (09:09→20:24)
[2017-09-16] MEDS: BUTALB/APAP/CAFF 50-325-40MG TAB PO PRN ×3 (09:12→20:27)
[2017-09-16] MEDS: TRIHEXYPHENIDYL 2 MG TAB PO PRN (14:08)
[2017-09-16] MEDS: ASENAPINE 5 MG TAB SUBLINGUAL SCH (20:24)
[2017-09-16] MEDS: BACLOFEN 10 MG TAB PO PRN (20:25)
[2017-09-16] MEDS: ZOLPIDEM 10 MG TAB PO PRN (20:29)
[2017-09-17] MEDS: GABAPENTIN 400 MG CAP PO SCH ×6 (02:54→20:55)
[2017-09-17] MEDS: buPROPion XL 300 MG TAB.ER.24H PO SCH ×2 (02:54→09:09)
[2017-09-17] MEDS: PALIPERIDONE 3 MG TAB.ER.24 PO SCH ×2 (02:55→09:10)
[2017-09-17] MEDS: ASENAPINE 5 MG TAB SUBLINGUAL SCH ×2 (02:55→20:54)
[2017-09-17] MEDS: METOPROLOL SUCCINATE (ER) 50 MG TAB.ER.24H PO SCH ×2 (02:55→09:09)
[2017-09-17] MEDS: BUTALB/APAP/CAFF 50-325-40MG TAB PO PRN ×3 (09:16→20:54)
[2017-09-17] MEDS: clonazePAM 1 MG TAB PO PRN ×2 (09:17→18:31)
[2017-09-17] MEDS: traMADol 50 MG TAB PO PRN (14:48)
[2017-09-18] MEDS: GABAPENTIN 400 MG CAP PO SCH ×4 (09:22→21:08)
[2017-09-18] MEDS: buPROPion XL 300 MG TAB.ER.24H PO SCH (09:22)
[2017-09-18] MEDS: METOPROLOL SUCCINATE (ER) 50 MG TAB.ER.24H PO SCH (09:23)
[2017-09-18] MEDS: PALIPERIDONE 3 MG TAB.ER.24 PO SCH (09:23)
[2017-09-18] MEDS: clonazePAM 1 MG TAB PO PRN ×2 (09:23→17:29)
[2017-09-18] MEDS: traMADol 50 MG TAB PO PRN ×2 (09:23→17:29)
[2017-09-18] MEDS: BUTALB/APAP/CAFF 50-325-40MG TAB PO PRN ×3 (09:24→20:26)
--- NOTE | 2017-09-18 14:32 | P.PN ---
Progress Note - Text Progress Note Date: 09/16/17 Interval history: Upon approach by this provider, pt speaks at length regarding his concerns about being on Invega. States that he is allergic to this medication and does not want to be on it any longer. Also opposed to being started on an injection. Reports experiencing symptoms of his "feet lock up and makes me nuts". Also states that he does not feel he is all the way himself. No further complaints. Mental status exam: The patient is markedly disheveled he has food in his rabago he is dressed in several layers with the outer most shirt being visibly soiled and is on backwards. He continues to not wash clothing. He does not sit during the session and stands or leans on the table. Eye contact is intermittent. He has a constant stream of speech but is not pressured. He does demonstrate tangential thinking with some loose associations. He continues to feel persecuted and demonstrates paranoid thinking. Insight and judgment are impaired. No observed involuntary movements or difficulty with ambulation. Plan: The patient will continue on his current medication regimen as prescribed by his primary psychiatrist on the unit as pt is being seen through cross coverage. As per plan by Dr. Horan, once we observe efficacy from the Invega the is to proceed with initiating the depot form of the medication. We will continue to monitor him for safety and encourage his participation in the milieu. Reality orientation will be provided when possible. The patient remains quite symptomatic and requires further inpatient psychiatric stabilization.
--- NOTE | 2017-09-18 14:35 | P.PN ---
Progress Note - Text Progress Note Date: 09/17/17 Interval history: Upon approach by this provider, pt speaks at length regarding his concerns about being on Invega. Continues to claim allergy to this medication. States that when he has been on injections in the past he has felt like "I gotta move but don't want to move". States that he does not plan to take Invega once he leaves the hospital. Reports that he likes Saphris better and feels it helps relax his muscles. Denies AVH and feels that he is not Schizophrenic. No further complaints. Mental status exam: The patient is markedly disheveled he has food in his rabago he is dressed in several layers with the outer most shirt being visibly soiled and is on backwards. He continues to not wash clothing. He does not sit during the session and stands or leans on the table. Eye contact is intermittent. He has a constant stream of speech but is not pressured. He does demonstrate tangential thinking with some loose associations. He continues to feel persecuted and demonstrates paranoid thinking. Insight and judgment are impaired. No observed involuntary movements or difficulty with ambulation. Plan: The patient will continue on his current medication regimen as prescribed by his primary psychiatrist on the unit as pt is being seen through cross coverage. As per plan by Dr. Horan, once we observe efficacy from the Invega the is to proceed with initiating the depot form of the medication. We will continue to monitor him for safety and encourage his participation in the milieu. Reality orientation will be provided when possible. The patient remains quite symptomatic and requires further inpatient psychiatric stabilization.
[2017-09-18] MEDS ORDERED: OLANZapine 5 MG TAB PO SCH (15:40)
[2017-09-18] MEDS: OLANZapine 5 MG TAB PO SCH (20:19)
[2017-09-18] MEDS: ASENAPINE 5 MG TAB SUBLINGUAL SCH (20:21)
[2017-09-18] MEDS: ZOLPIDEM 10 MG TAB PO PRN (20:24)
[2017-09-19] MEDS: BACLOFEN 10 MG TAB PO PRN ×2 (00:05→22:38)
[2017-09-19] MEDS: BUTALB/APAP/CAFF 50-325-40MG TAB PO PRN ×4 (00:07→20:59)
[2017-09-19] MEDS: clonazePAM 1 MG TAB PO PRN ×3 (01:51→20:57)
--- NOTE | 2017-09-19 05:37 | PN ---
PROGRESS NOTE DATE OF SERVICE: 09/18/2017 CHIEF COMPLAINT: The patient was admitted on [facility] for involuntary hospitalization. He had delusions, talking about his identity being stolen. He apparently had barricaded himself in his room in his retirement. He was yelling. He had disorganized behavior. He was confused. INTERVAL HISTORY: Patient has been doing fair. He had a quiet evening last night. He slept fairly well. Today he has been up and about. The patient has not been attending groups. He has had some periods of getting quite intense and anxious. He received 2 doses of p.r.n. Klonopin this morning and then a dose around 5:30 in the afternoon he had an episode of becoming quite agitated. He was angry about being continued on Invega. He states that he was willing to take the Zyprexa as an alternative oral medication. He was vague about concerns with Invega stating that it makes him feel bad, though he could not provide details. He has some understanding of the issue of involuntary treatment. It is not clear that he was having any specific extrapyramidal side effects that might relate to Invega. He has not had other change in his general health. MENTAL STATUS: When I saw the patient initially, he gave fairly good eye contact. He was a little restless. His thoughts were clear. He was spontaneous and interactive. A little while later he was in the [place] and became agitated about his medications. When I talked to him at that point, he was able to calm down quickly when I agreed to start him on Zyprexa. He was quiet after that, though he was significantly distressed up to that point. ASSESSMENT: I will continue the current diagnosis and treatment plan. We will continue to make efforts to engage the patient in individual and group therapeutic activities. I will discontinue Invega and start the patient on Zyprexa 15 mg twice a day. Given that the patient has been exposed to Invega and does not show signs of allergy he could be started on Invega Sustenna, which I understand is the preference of Dr. Monge at [facility]. If he shows some response to oral Zyprexa, he may be more amenable to other options. I did discuss with the patient that based on the issues of involuntary treatment, he may be mandated to long-acting injectable medications. I discussed with the patient that we would be reviewing these issues further with [facility] and that Invega Sustenna may be an appropriate medication to initiate. We will continue to focus on stabilization and discharge planning. EDIS / JANAYN: [id number] /
[2017-09-19] MEDS: METOPROLOL SUCCINATE (ER) 50 MG TAB.ER.24H PO SCH (07:53)
[2017-09-19] MEDS: GABAPENTIN 400 MG CAP PO SCH ×4 (07:54→21:12)
[2017-09-19] MEDS: buPROPion XL 300 MG TAB.ER.24H PO SCH (07:54)
[2017-09-19] MEDS: traMADol 50 MG TAB PO PRN ×2 (07:58→20:59)
[2017-09-19] MEDS: OLANZapine 5 MG TAB PO SCH (08:02)
[2017-09-19] MEDS ORDERED: PALIPERIDONE 3 MG TAB.ER.24 PO SCH (09:00)
[2017-09-19] MEDS: OLANZapine 10 MG TAB PO SCH ×2 (16:23→21:12)
--- NOTE | 2017-09-19 18:24 | PN ---
PROGRESS NOTE DATE OF SERVICE: 09/19/2017. CHIEF COMPLAINT: The patient was admitted on [facility] for involuntary hospitalization. He had delusions. He was talking about stolen identity. He barricaded himself in his room at his senior care. He had disorganized behavior. He was confused. INTERVAL HISTORY: Patient has been doing fair. He had a quiet evening last night. He slept fairly well. Today he has been up and about. He did receive a Klonopin at 1:50 this morning. He got upset about a bottle being removed from his room. He slammed the door. After that, he was able to sleep for about 4 hours. Today he has been up and about. He does not attend groups. He will come out in the day area. He does not interact too much with others. When I talked to him today, he was still quite fixed in adamant about the idea that he was not going on any injectable medications. I had a telephone contact with Dr. Monge. Dr. Monge noted that over the last 10 years or so, the patient has done best when he was on IM Haldol, probably 100 mg every 2-4 weeks. When he was on IM medications, he was functioning better in the community. He was not getting into difficult situations. When he was off IM medications, he would very frequently have problems. He would not take care of himself personally. He would have disorganized behavior. He would have trouble out in the community. [facility] would frequently be getting calls about the difficult behaviors that he was having. Dr. Monge did talk to the patient directly on the phone about this. The patient still is quite adamant about the idea that the IM medications would cause him to kill himself. He disagrees with what is documented in the petition. When I reviewed issues of with Dr. Monge noted, I discussed with the patient that the likely outcome of a court hearing would be court- ordered treatment that would include long-acting injectable medications. It is noted that Dr. Monge would favor a full trial of Clozaril if the patient was at a point where he could comply with treatment. The biggest problem is compliance with oral medications and, in the case of Clozaril, with the blood work. The patient has not had change in his general health. He tolerates his psychotropic medications. MENTAL STATUS: Patient initially had a quiet manner. He gave fair eye contact. After the discussion with Dr. Monge, he was more distressed. He talked in a somewhat louder voice. He expressed anger. On the other hand, he was able to contain himself in terms of his emotions. He was able to end the conversation without difficulty, even though he was distressed over the content. His affect was intense, his mood dysphoric. He was significantly distressed. ASSESSMENT: I will continue the current diagnosis and treatment plan. I will increase his Zyprexa up to 15 mg 3 times a day. Will continue other psychotropic medications the same. He has court hearing pending. I did explain with the patient that the likely outcome is a long-acting injectable, at least as initial treatment. I encouraged the patient to consider the option of Clozaril. Will continue to focus on stabilization and discharge planning. EDIS / VIOLETA: [id number] /
[2017-09-19] MEDS: ASENAPINE 5 MG TAB SUBLINGUAL SCH (22:31)
[2017-09-20] MEDS: GABAPENTIN 400 MG CAP PO SCH ×4 (08:06→23:00)
[2017-09-20] MEDS: buPROPion XL 300 MG TAB.ER.24H PO SCH (08:07)
[2017-09-20] MEDS: METOPROLOL SUCCINATE (ER) 50 MG TAB.ER.24H PO SCH (08:07)
[2017-09-20] MEDS: clonazePAM 1 MG TAB PO PRN ×3 (08:08→23:00)
[2017-09-20] MEDS: BUTALB/APAP/CAFF 50-325-40MG TAB PO PRN (09:10)
[2017-09-20] MEDS: traMADol 50 MG TAB PO PRN ×2 (09:11→15:34)
[2017-09-20] MEDS: OLANZapine 10 MG TAB PO SCH (10:26)
[2017-09-20] MEDS ORDERED: HALOPERIDOL LACTATE 5 MG/ML 1 ML VIAL IM PRN (11:55)
--- NOTE | 2017-09-20 12:02 | P.PN ---
Progress Note - Text Interval history: The patient is found in his room lying awake in bed he refuses to participate in an interview this morning. Staff had informed me that he threatened to spit on me or physically hurt me. In my absence the invega was discontinued he was placed on Zyprexa. The covering physician did speak with Dr. Monge the patient's outpatient psychiatrist. Again it is necessary for the patient to be on an injectable form of the antipsychotic. The invega seem to provide no benefits we will go ahead and proceed with Haldol. The patient's outpatient psychiatrist feels that the Haldol has done the best in terms of reducing the acute nature of the patient psychosis. The patient does not have a true ALLERGY to Haldol as he has been on it for numerous years in the past. Mental status exam: The patient is alert he is very disheveled hygiene is impaired. He continues to dress in layers. He continues to have acute symptoms of psychosis that are paranoid and persecutory in nature. He continues to have poor insight and judgment. Plan: The Zyprexa will be discontinued I will place him on oral Haldol 5 mg at bedtime we will initiate a Haldol decanoate 100 mg injection today. We will monitor him for safety and encourage his participation in the milieu. Vital signs reviewed.
[2017-09-20] MEDS ORDERED: HALOPERIDOL DECANOATE 100 MG/ML 1 ML VIAL IM STA (12:03)
[2017-09-20] MEDS: BACLOFEN 10 MG TAB PO PRN (17:43)
[2017-09-20] MEDS: HALOPERIDOL 5 MG TAB PO SCH (22:54)
[2017-09-21] MEDS: METOPROLOL SUCCINATE (ER) 50 MG TAB.ER.24H PO SCH (08:40)
[2017-09-21] MEDS: buPROPion XL 300 MG TAB.ER.24H PO SCH (08:40)
[2017-09-21] MEDS: GABAPENTIN 400 MG CAP PO SCH ×4 (08:40→22:44)
[2017-09-21] MEDS: clonazePAM 1 MG TAB PO PRN ×2 (08:42→16:53)
[2017-09-21] MEDS: traMADol 50 MG TAB PO PRN ×2 (08:42→22:46)
--- NOTE | 2017-09-21 11:07 | P.PN ---
Progress Note - Text Interval history: The patient is found in the hallway he follows me to an interview room. He ventilates his frustration regarding his medications. Again he is demonstrated no ALLERGIC reaction to Haldol but he states that on the list and I need to check the computer. He did receive the Haldol decanoate injection yesterday. He again will strew his entire story of how he is here inappropriately and that he is not on a court order. For several minutes he describes why he should be on a stimulant and Saphris. Mental status exam: The patient has a disheveled appearance he is dressed in layers hygiene grooming are poor. Eye contact is intermittent. He is agitated but he demonstrates no verbal or physical aggressiveness. He continues to have paranoid and persecutory thoughts he reports no thoughts of self-harm or harm to others. Insight and judgment are impaired. He is oriented to person place and date. He is demonstrating no abnormal involuntary movements. Plan: The patient will continue on his current medications. Artane will be scheduled rather than when necessary to prevent any dystonic reaction. We will continue to monitor him for safety. Once we see improvement in his function on the mental health unit we will transition him to a [facility] bed.
[2017-09-21] MEDS: TRIHEXYPHENIDYL 2 MG TAB PO SCH ×2 (12:00→18:46)
[2017-09-21] MEDS: BACLOFEN 10 MG TAB PO PRN (16:52)
[2017-09-21] MEDS: HALOPERIDOL 5 MG TAB PO SCH (22:44)
[2017-09-22] MEDS: clonazePAM 1 MG TAB PO PRN ×3 (01:49→17:03)
[2017-09-22] MEDS: traMADol 50 MG TAB PO PRN (09:14)
[2017-09-22] MEDS: METOPROLOL SUCCINATE (ER) 50 MG TAB.ER.24H PO SCH (09:14)
[2017-09-22] MEDS: buPROPion XL 300 MG TAB.ER.24H PO SCH (09:14)
[2017-09-22] MEDS: GABAPENTIN 400 MG CAP PO SCH ×4 (09:14→21:08)
[2017-09-22] MEDS: TRIHEXYPHENIDYL 2 MG TAB PO SCH ×3 (09:14→17:02)
--- NOTE | 2017-09-22 11:30 | P.PN ---
Progress Note - Text Interval history: The patient is found in the hallway he follows me to an interview room. He continues to voices concern that he has been given a Haldol decanoate injection. He states that he wants to go back on Saphris he wants Fioricet reinstated in his Ultram increased. He again goes through this same information he has presented numerous times regarding his admission to the hospital. He refuses to acknowledge he is on a treatment order. Again he is still willing to go to [facility] for placement upon discharge. Staff report that he is doing better with some conversations he did attend goal setting group this morning. He has not been demonstrating any physical aggressiveness. He can get verbally agitated but is redirectable. Mental status exam: The patient has a disheveled appearance she is dressed in 2 layers. Hygiene is impaired. He does not sit during the session and paces about the room describing his concerns. He reports no thoughts of harming himself or others. He continues to have paranoid prescribed 20 thoughts but again those are part of his baseline. He demonstrates no abnormal involuntary movements. He expresses his frustration with me regarding what I'm prescribing but he demonstrates no aggressiveness. He is oriented to person place and date. Affect is blunted. Plan: The patient has been given a Haldol decanoate injection we have him on an oral Haldol dose at bedtime. We are awaiting bed availability at a retirement for him. There are some mild improvements in his function on the mental health unit. We will continue his psychotropic medications as written. Vital signs reviewed. We will continue to monitor him for safety.
[2017-09-22] MEDS: BACLOFEN 10 MG TAB PO PRN ×2 (11:40→20:42)
[2017-09-22] MEDS: HALOPERIDOL 5 MG TAB PO SCH (20:42)
[2017-09-23] MEDS: clonazePAM 1 MG TAB PO PRN ×3 (01:29→17:10)
[2017-09-23] MEDS: traMADol 50 MG TAB PO PRN ×3 (01:29→20:10)
[2017-09-23] MEDS: METOPROLOL SUCCINATE (ER) 50 MG TAB.ER.24H PO SCH (09:56)
[2017-09-23] MEDS: buPROPion XL 300 MG TAB.ER.24H PO SCH (09:56)
[2017-09-23] MEDS: GABAPENTIN 400 MG CAP PO SCH ×4 (09:56→22:48)
[2017-09-23] MEDS: TRIHEXYPHENIDYL 2 MG TAB PO SCH ×3 (09:56→16:45)
[2017-09-23] MEDS: BACLOFEN 10 MG TAB PO PRN (17:10)
[2017-09-23] MEDS: HALOPERIDOL 5 MG TAB PO SCH (22:48)
--- NOTE | 2017-09-23 23:21 | PN ---
PROGRESS NOTE DATE OF SERVICE: 09/23/2017. CHIEF COMPLAINT: The patient was [facility]. He had delusions. He talked about stolen identity. He barricaded himself in his room at his nursing home. He had disorganized behavior. He was confused. INTERVAL HISTORY: Patient has been doing fair. He had a quiet evening last night. He slept well. Today he has been up. He comes out in the day area. He will interact some with others. He continues to have a very negative outlook in regards to his hospitalization and with medications. While he was quite negative about things on the unit and was resistant to taking a shower and cleaning up his clothes, he did agree to take a shower in the afternoon. The plan was for staff to continue to encourage him towards getting his clothes washed as well. He has a good appetite. He has not showed any behavior difficulties beyond just vocalizing his discontent with his situation. He has not had change in his general health. He tolerates his psychotropic medications. MENTAL STATUS: Patient gave fair eye contact. He was somewhat restless. His thoughts were clear. He tended to ramble. He had an angry manner. His affect was somewhat intense. His mood dysphoric. He was moderately distressed. He was ambulatory with normal gait and strength. There was no tremor, abnormal movements, or rigidity. There was no indication of EPS or signs of tardive dyskinesia. Evidence of no cogwheeling rigidity. ASSESSMENT: I will continue the current diagnosis and treatment plan. We will continue psychotropic medications the same. I continue to talk with the patient about the fact that overall his treatment is pretty well set given that he now is on the Haldol Decanoate. Since he has been accepting Haldol, I will increase his oral Haldol dose to 10 mg twice a day. The aim is to help advance his response to Haldol while he has further time for the Decanoate to be more effective. He continues to be significantly psychotic and quite a ways away from his best baseline. We will continue to focus on stabilization and discharge planning. MMHOLAL / JANAYN: [id number] /
[2017-09-24] MEDS: METOPROLOL SUCCINATE (ER) 50 MG TAB.ER.24H PO SCH (10:30)
[2017-09-24] MEDS: TRIHEXYPHENIDYL 2 MG TAB PO SCH ×3 (10:30→17:16)
[2017-09-24] MEDS: GABAPENTIN 400 MG CAP PO SCH ×4 (10:32→20:59)
[2017-09-24] MEDS: clonazePAM 1 MG TAB PO PRN ×3 (10:32→22:52)
[2017-09-24] MEDS: buPROPion XL 300 MG TAB.ER.24H PO SCH (10:32)
[2017-09-24] MEDS: traMADol 50 MG TAB PO PRN ×2 (10:33→21:02)
[2017-09-24] MEDS: HALOPERIDOL 5 MG TAB PO SCH ×3 (10:33→21:00)
[2017-09-24] MEDS: BACLOFEN 10 MG TAB PO PRN (21:01)
[2017-09-25] MEDS: HALOPERIDOL 5 MG TAB PO SCH ×2 (08:53→20:31)
[2017-09-25] MEDS: buPROPion XL 300 MG TAB.ER.24H PO SCH (08:53)
[2017-09-25] MEDS: METOPROLOL SUCCINATE (ER) 50 MG TAB.ER.24H PO SCH (08:53)
[2017-09-25] MEDS: TRIHEXYPHENIDYL 2 MG TAB PO SCH ×3 (08:53→17:51)
[2017-09-25] MEDS: GABAPENTIN 400 MG CAP PO SCH ×4 (08:53→22:19)
[2017-09-25] MEDS: traMADol 50 MG TAB PO PRN ×2 (08:55→20:33)
[2017-09-25] MEDS: clonazePAM 1 MG TAB PO PRN ×2 (08:56→17:51)
--- NOTE | 2017-09-25 09:12 | PN ---
PROGRESS NOTE DATE OF SERVICE: 09/24/2017. CHIEF COMPLAINT: The patient was admitted on petition for involuntary hospitalization. He had delusions. He talked about a stolen identity. Barricaded himself in his room at his detention. He had disorganized behavior. He was confused. INTERVAL HISTORY: Patient has been doing fair. He had a quiet evening last night. He slept well. Today he has been up. He comes out in the day area. He will interact with others. He tends to find 1 or 2 patients where with whom he seems to be comfortable in interactions. Otherwise, he does not seem to partake much in group activities. He does not attend the therapeutic groups. He continues to have complaints about his situation of being in the hospital and being under what he feels is "forced treatment." Overall, he is a little more contained. He has been taking his medications though he does complain about having to take the oral medications. He did take a shower yesterday when encouraged to do so, although he very much resists washing his clothes. He has not had change in his general health. He tolerates his psychotropic medications. MENTAL STATUS: Patient gave fair eye contact. He was restless. He talked quite a bit. Much of his time was rambling about the issues of his coming into the hospital. It was very difficult for him to focus on the present and future. His affect was intense. His mood dysphoric. He was moderately distressed. It is noteworthy that he did not show any tremor, abnormal movements, or rigidity. He had no cogwheeling. There were no indications for EPS or signs of tardive dyskinesia. ASSESSMENT: I will continue the current diagnosis and treatment plan. I continue psychotropic medications the same. We will continue to focus on stabilization and discharge planning. I had an extensive discussion with the patient regarding the things that he could do to best expedite his discharge and return to the community. It is not clear that he is able to take much in regards to these issues. MMODL / IJN: [id number] /
[2017-09-25] MEDS: BACLOFEN 10 MG TAB PO PRN (13:37)
--- NOTE | 2017-09-26 08:22 | PN ---
PROGRESS NOTE DATE OF SERVICE: 09/25/2017. CHIEF COMPLAINT: The patient was admitted on petition for involuntary hospitalization. He had delusions. He talked about a stolen identity. He had barricaded himself in his room at his [place] [facility]. He had disorganized behavior. He was confused. INTERVAL HISTORY: Patient has been doing fair. He had a quiet evening last night. He slept well. Today he has been up. He comes out in the day area. He wanders about the unit. He will interact with others though that tends to be limited. He seems to be comfortable with a few people though not with any people in the group. He will attend groups sporadically. He continues to focus on talking about the issues of his hospitalization, his current treatment and his court-ordered status. He continues to focus on the idea that documentation is false. I have talked to him several times and referred him to address these issues with his mental health staff given that is where most of the concerns arose. I reviewed with the patient that he is likely to need to continue on a long-acting injectable medications. He is against that idea. He has been taking his oral medications even though he complains about them. He still is quite obsessive in regards to the issues of his treatment. He has not had change in his general health. He tolerates his psychotropic medications. MENTAL STATUS: Patient gave fair eye contact. He was restless. He tended to ramble. He was tangential at times. His affect was somewhat intense. His mood dysphoric. He was somewhat distressed. ASSESSMENT: I will continue the current diagnosis and treatment plan. I will continue psychotropic medications the same. I have had a number of discussions with the patient about what he could best do in order to prepare himself for discharge. We talked about him keeping himself focused on going forward and not relitigating the issues from the past. We have discussed that much of the things he complains about are outside the realm of the hospitalization. I strongly encouraged the patient to talk to Dr. Horan about what would be the best avenue for him to work towards an early discharge. The patient has continued to say that he will continue to work with Dr. Monge though from time to time he gets somewhat distressed over his perceived concerns about Dr. Monge. We will continue to focus on stabilization and discharge planning. MMODL / IJN: [id number] /
[2017-09-26] MEDS: TRIHEXYPHENIDYL 2 MG TAB PO SCH ×3 (10:34→18:01)
[2017-09-26] MEDS: HALOPERIDOL 5 MG TAB PO SCH ×6 (10:35→22:02)
[2017-09-26] MEDS: buPROPion XL 300 MG TAB.ER.24H PO SCH (10:35)
[2017-09-26] MEDS: GABAPENTIN 400 MG CAP PO SCH ×4 (10:35→22:02)
[2017-09-26] MEDS: clonazePAM 1 MG TAB PO PRN ×2 (10:35→18:02)
[2017-09-26] MEDS: METOPROLOL SUCCINATE (ER) 50 MG TAB.ER.24H PO SCH (10:35)
[2017-09-26] MEDS: traMADol 50 MG TAB PO PRN ×2 (10:36→22:05)
[2017-09-26] MEDS: BACLOFEN 10 MG TAB PO PRN ×2 (14:07→22:05)
--- NOTE | 2017-09-26 18:33 | P.PN ---
Progress Note - Text Date of service: 09/26/2017 Chief complaint: "I want to leave" Subjective: The patient has been seen today as follow-up, chart reviewed, case discussed with the treatment team. Patient slept about more than 6 hours last night, he reported interrupted sleep. Patient has been not going to groups and other unit activities. Patient reports fair appetite problems. The patient presented very fixated on discharge and he denies most of the psychiatric symptoms but he was very circumstantial with racing thoughts and flight of ideas. The patient denies any hallucinations and he denies suicidal or homicidal thoughts. He denies feeling depressed and minimized anxiety symptoms. According to records from [facility] patient has received Haldol decanuate on September 20. The patient is compliant with his medications and denies any adverse reactions. Review of other systems: Patient denies any physical symptoms besides what has been mentioned above. No breathing problems, no chest pain reported today. Objective: Vitals has been reviewed. Mental status examination; Appearance: The patient appears stated age, disheveled. Gait/posture: Normal gait, Normal arm swinging: No abnormal movements. Attitude and behavior: Argumentative with intermittent eye contact Motor activity: Increased psychomotor activity Speech: Loud, partially pressured Mood: Anxious, irritable Affect: Constricted Thought form: Perseverance Thought content: Non-delusional, denies suicidal thoughts, denies homicidal thoughts, denies intentions or plans. Perception: Denies any auditory or visual hallucinations Attention: No impairment. Orientation: Patient patient was fully oriented to time place person and situation. Insight: Patient has limited insight about his psychiatric disorder. Judgment: Patient has limited judgment about his psychiatric treatment. Assessment: Schizophrenia Plan: Continue with inpatient psychiatric hospitalization for monitoring and continue treatment. Continue group therapy and other unit activities. Continue psychiatric medications: Haldol for psychotic and mood symptoms stabilization. Neurontin for anxiety. Klonopin for anxiety. Wellbutrin for depression. And Artane for EPS. Events the patient reported intermittent sleep, but he refused to consider any medication to help with his sleep problems
[2017-09-27] MEDS: buPROPion XL 300 MG TAB.ER.24H PO SCH (09:00)
[2017-09-27] MEDS: TRIHEXYPHENIDYL 2 MG TAB PO SCH ×3 (09:00→17:08)
[2017-09-27] MEDS: HALOPERIDOL 5 MG TAB PO SCH ×2 (09:00→20:52)
[2017-09-27] MEDS: METOPROLOL SUCCINATE (ER) 50 MG TAB.ER.24H PO SCH (09:00)
[2017-09-27] MEDS: GABAPENTIN 400 MG CAP PO SCH ×4 (09:00→21:49)
[2017-09-27] MEDS: traMADol 50 MG TAB PO PRN ×2 (09:02→20:54)
[2017-09-27] MEDS: clonazePAM 1 MG TAB PO PRN ×2 (09:03→17:08)
--- NOTE | 2017-09-27 09:04 | P.PN ---
Progress Note - Text Interval history: The patient approaches the interview room to speak. He states he would like to be discharged. Notes from the past several days were reviewed. He reports that he was able to sleep last night and staff recorded 5 hours. Reportedly he slept 6 hours the night before. He indicates that he showering and washing his clothes in the shower. He continues to remain frustrated with being prescribed his current psychotropic medications as he lacks insight into his mental illness and need for treatment. He indicates that he is eating. Vital signs are reviewed they're within normal limits. Mental status exam: The patient is alert he is dressed in multiple layers including his own clothing and hospital gown. He has a disheveled appearance. Eye contact is intermittent. He walks about the interview room and does not sit. He indicates he would like to be discharged he denies having any suicidal or homicidal ideation intent or plan. He denies having any symptoms and states "I'm not schizophrenic". He demonstrates no verbal or physical aggressiveness he was verbally directable. Insight and judgment are impaired. He is oriented to person place and date. He demonstrates no abnormal involuntary movements. Plan: The patient will be continued on his current medication the Haldol has been titrated to 10 mg twice daily. He has already received a Haldol Decanoate injection. We will discuss his progress over last several days during treatment team meeting. We continue to hope to transition him to a [facility] bed upon discharge. We will continue to monitor him for safety and encourage his participation in the milieu.
[2017-09-27] MEDS: BACLOFEN 10 MG TAB PO PRN (14:47)
[2017-09-27 23:31] VITALS: BMI 25.6
[2017-09-28] MEDS: clonazePAM 1 MG TAB PO PRN ×3 (03:26→17:48)
[2017-09-28] MEDS: HALOPERIDOL 5 MG TAB PO SCH ×2 (09:19→20:26)
[2017-09-28] MEDS: TRIHEXYPHENIDYL 2 MG TAB PO SCH ×3 (09:19→17:45)
[2017-09-28] MEDS: METOPROLOL SUCCINATE (ER) 50 MG TAB.ER.24H PO SCH (09:20)
[2017-09-28] MEDS: GABAPENTIN 400 MG CAP PO SCH ×4 (09:20→20:26)
[2017-09-28] MEDS: buPROPion XL 300 MG TAB.ER.24H PO SCH (09:20)
[2017-09-28] MEDS: traMADol 50 MG TAB PO PRN (09:27)
--- NOTE | 2017-09-28 11:16 | P.PN ---
Progress Note - Text Interval history: The patient is found in his room he does not wish to speak in an interview room staff report he has demonstrated some improvement in the sense he expressed concern for his appearance and wanted to wash his clothing. He'll out housekeeping to clean his room. He remains frustrated that he is on antipsychotic medication and states it makes him worse, however we are beginning to see improvement in some of his behaviors. Mental status exam: The patient is alert he is lying in bed he makes no eye contact with me today. He indicates he would like to be discharged. He expresses his frustration regarding his medication. He demonstrates no verbal or physical aggressiveness. He demonstrates no abnormal involuntary movements. He remains oriented to person place and date. He continues to have a delusional thought content. He indicates no thoughts of harming himself or others. Plan: The patient will continue on his current psychotropic medications. He appears to be slowly improving and approximating his known baseline function. Once stabilized he will be appropriate for transition back to the alf. We will continue to monitor him for safety. Vital signs reviewed.
[2017-09-28] MEDS: BACLOFEN 10 MG TAB PO PRN (17:45)
[2017-09-28] MEDS: FAMOTIDINE 20 MG TAB PO SCH (22:31)
[2017-09-29] MEDS: GABAPENTIN 400 MG CAP PO SCH ×4 (09:59→20:45)
[2017-09-29] MEDS: HALOPERIDOL 5 MG TAB PO SCH ×2 (09:59→20:44)
[2017-09-29] MEDS: TRIHEXYPHENIDYL 2 MG TAB PO SCH ×3 (09:59→17:29)
[2017-09-29] MEDS: METOPROLOL SUCCINATE (ER) 50 MG TAB.ER.24H PO SCH (09:59)
[2017-09-29] MEDS: buPROPion XL 300 MG TAB.ER.24H PO SCH (09:59)
[2017-09-29] MEDS: clonazePAM 1 MG TAB PO PRN ×2 (10:01→17:30)
[2017-09-29] MEDS: traMADol 50 MG TAB PO PRN (10:01)
--- NOTE | 2017-09-29 11:38 | P.PN ---
Progress Note - Text interval history: The patient is found in his room. He states he was able to get some sleep last night and feels more awake. He continues to have complaints regarding being on Haldol and wants to go back on Saphris. During team we discussed that there are we'll likely be an opening at [facility] soon and Tomas was informed of this development. He reports that he was able to participate in meals yesterday and this morning. Staff continue to report some subtle improvements in his behavior. He has demonstrated no physical aggressiveness. Mental status exam: The patient is alert he has a disheveled appearance he is dressed in layers hygiene is improved. Eye contact is improved. He continues to be ruminative regarding his concerns related to hospitalization and medication management. He does continue to have a paranoid and persecutory delusional thought content but the acute symptoms appear to be improving. He demonstrates no verbal or physical aggressiveness he demonstrates no abnormal involuntary movements. Insight and judgment chronically limited. He is oriented to person place and date. Plan: The patient will continue on his current psychotropic medications he subtle he demonstrates improvement in his behavior. We are awaiting correction placement and this has been discussed during treatment team meeting with the community mental health liaison involved. Vital signs reviewed. We will continue to monitor the patient for safety and encourage participation in the milieu.
[2017-09-29] MEDS: BACLOFEN 10 MG TAB PO PRN (14:43)
[2017-09-29] MEDS: FAMOTIDINE 20 MG TAB PO SCH (20:44)
[2017-09-30] MEDS: TRIHEXYPHENIDYL 2 MG TAB PO SCH ×3 (09:18→17:23)
[2017-09-30] MEDS: METOPROLOL SUCCINATE (ER) 50 MG TAB.ER.24H PO SCH (09:18)
[2017-09-30] MEDS: buPROPion XL 300 MG TAB.ER.24H PO SCH (09:18)
[2017-09-30] MEDS: GABAPENTIN 400 MG CAP PO SCH ×4 (09:18→21:28)
[2017-09-30] MEDS: HALOPERIDOL 5 MG TAB PO SCH ×2 (09:19→21:28)
--- NOTE | 2017-09-30 11:33 | P.PN ---
Progress Note - Text interval history: The patient is found in the hallway he follows me to an interview room. Again he discusses his frustrations with being the hospital. Slowly he continues to demonstrate improved behaviors however. It appears that he is managing his hygiene better and is demonstrating no agitation. He complains of his medications liking insight into the need for an injectable medication he continues to believe he is not on a court order. He states that his bladder trimmer has told him they're going for a missed trial. Mental status exam: The patient is alert hygiene is better he is disheveled he is wearing one layer of clothing that appears to have been laundered. Eye contact is intermittent. He has ongoing spontaneous speech is verbose but he is directable. He demonstrates no verbal or physical aggressiveness. He continues to have a delusional thought content which is consistent with his baseline. He demonstrates no verbal or physical aggressiveness he demonstrates no abnormal involuntary movements. He is oriented to person place and date. Affect is constricted. Plan: The patient will continue on his current medications he is slowly stabilizing. Again we await longterm placement most likely [facility]. Vital signs reviewed they're within normal limits. We will monitor him for safety. Reality orientation is provided when possible.
[2017-09-30] MEDS: clonazePAM 1 MG TAB PO PRN ×2 (12:51→21:31)
[2017-09-30] MEDS: traMADol 50 MG TAB PO PRN ×2 (12:53→21:31)
[2017-09-30] MEDS: FAMOTIDINE 20 MG TAB PO SCH (21:28)
[2017-09-30] MEDS: BACLOFEN 10 MG TAB PO PRN (21:31)
[2017-10-01] MEDS: METOPROLOL SUCCINATE (ER) 50 MG TAB.ER.24H PO SCH (08:13)
[2017-10-01] MEDS: HALOPERIDOL 5 MG TAB PO SCH ×2 (08:14→20:39)
[2017-10-01] MEDS: TRIHEXYPHENIDYL 2 MG TAB PO SCH ×3 (08:14→16:19)
[2017-10-01] MEDS: GABAPENTIN 400 MG CAP PO SCH ×4 (08:15→20:39)
[2017-10-01] MEDS: traMADol 50 MG TAB PO PRN ×2 (08:15→20:42)
[2017-10-01] MEDS: buPROPion XL 300 MG TAB.ER.24H PO SCH (08:15)
[2017-10-01] MEDS: clonazePAM 1 MG TAB PO PRN ×3 (08:16→23:05)
[2017-10-01] MEDS: BACLOFEN 10 MG TAB PO PRN ×2 (11:15→23:05)
[2017-10-01] MEDS: FAMOTIDINE 20 MG TAB PO SCH ×2 (11:16→20:39)
--- NOTE | 2017-10-01 15:38 | P.PN ---
Progress Note - Text Interval history: The patient is found at the frontend engineer he follows me to an interview room. He reports some feelings of upset stomach we discussed titrating the Pepcid further. Again he describes his disagreement with use of Haldol and Haldol decanoate. He again goes through the same story regarding his presentation to the hospital. His account of those details continues to reflect his ongoing delusional thought content which is typically part of his baseline. Staff continue to agree that the patient's behavior overall is improving. Mental status exam: The patient is alert he remained standing for the session he is dressed in a single layer of clothing. Hygiene is improved it appears he has brushed his hair. Eye contact is intermittent. He is verbose but directable. He continues to demonstrate paranoid and persecutory delusions. He maintains a calm affect he demonstrates no agitation or verbal or physical aggressiveness. No abnormal involuntary movements observed. Insight and judgment chronically impaired. He is oriented to person place and date. Plan: The patient will continue on his current psychotropic medications. We are watching for cheeking behavior with the Haldol tablets. Pepcid will be increased to 20 mg twice daily. We will monitor him for safety. He is appropriate for transition to [facility] placement when a bed is available
[2017-10-02] MEDS: TRIHEXYPHENIDYL 2 MG TAB PO SCH ×3 (11:02→19:33)
[2017-10-02] MEDS: METOPROLOL SUCCINATE (ER) 50 MG TAB.ER.24H PO SCH (11:02)
[2017-10-02] MEDS: HALOPERIDOL 5 MG TAB PO SCH ×2 (11:05→20:36)
[2017-10-02] MEDS: FAMOTIDINE 20 MG TAB PO SCH ×2 (11:05→20:37)
[2017-10-02] MEDS: GABAPENTIN 400 MG CAP PO SCH ×4 (11:05→20:37)
[2017-10-02] MEDS: buPROPion XL 300 MG TAB.ER.24H PO SCH (11:05)
[2017-10-02] MEDS: clonazePAM 1 MG TAB PO PRN ×2 (11:06→20:38)
--- NOTE | 2017-10-02 11:26 | P.PN ---
Progress Note - Text Interval history: The patient is found in his room. He continues to verbalize frustration with his current psychotropic medications. Staff report no behavioral issues from the patient. During treatment team we did discuss shelter placement. It appears there may be an opening for the patient tomorrow. Mental status exam: The patient is alert he is lying in bed he demonstrates no verbal or physical aggressiveness. He verbalizes frustration that he is on psychotropic medication he does not agree with. He is reporting no suicidal or homicidal ideation. Insight and judgments chronically impaired. Symptoms of psychosis persist but they are improved from time of admission. He is oriented to person place and date. He is directable in the conversation Plan: The patient will continue on his current psychotropic medications we will continue to monitor him for safety. We are hoping that he will be able to be discharged to the shelter in the next 1-2 days. Vital signs reviewed they' re within normal limits.
[2017-10-02] MEDS: traMADol 50 MG TAB PO PRN (13:55)
[2017-10-02] MEDS: BACLOFEN 10 MG TAB PO PRN (16:18)
[2017-10-03] MEDS: TRIHEXYPHENIDYL 2 MG TAB PO SCH ×3 (08:03→17:26)
[2017-10-03] MEDS: METOPROLOL SUCCINATE (ER) 50 MG TAB.ER.24H PO SCH (08:03)
[2017-10-03] MEDS: traMADol 50 MG TAB PO PRN ×2 (08:03→20:26)
[2017-10-03] MEDS: FAMOTIDINE 20 MG TAB PO SCH ×2 (08:04→20:24)
[2017-10-03] MEDS: HALOPERIDOL 5 MG TAB PO SCH ×2 (08:04→20:24)
[2017-10-03] MEDS: GABAPENTIN 400 MG CAP PO SCH ×4 (08:04→20:24)
[2017-10-03] MEDS: clonazePAM 1 MG TAB PO PRN ×3 (08:04→23:35)
[2017-10-03] MEDS: buPROPion XL 300 MG TAB.ER.24H PO SCH (08:04)
--- NOTE | 2017-10-03 10:09 | P.PN ---
Progress Note - Text Interval history: The patient is found in the hallway he follows me to an interview room. He states that his stomach discomfort is improved with the increase in Pepcid. He states he was able to eat. He again describes his frustration with his current medications. He states he would rather be on Saphris or Zyprexa but it is necessary for him to be on an injectable Depo form of an antipsychotic. He continues to not recognize been on a treatment order. His behavior on the unit has been appropriate given his diagnosis. He's been maintaining improved hygiene he's been directable he is demonstrating no agitated behavior. Mental status exam: The patient is alert he is a disheveled appearance there is no follow odor. He is wearing a single-parent pants and a single shirt. Eye contact is appropriate he does continue to stand for the duration of our session. He demonstrates no verbal or physical aggressiveness despite his frustration. He continues to describe several paranoid and persecutory thoughts which are part of his baseline function unfortunately. He endorses no suicidal or homicidal ideation intent or plan. He is oriented to person place and date. Plan: The patient will continue on his current medications. I was informed that there will be a intermediate bed for him tomorrow. We will anticipate discharging him then. We will continue to monitor him for safety. Vital signs reviewed.
[2017-10-03 11:03] VITALS: RESP 16
[2017-10-03] MEDS: BACLOFEN 10 MG TAB PO PRN ×2 (12:53→20:29)
[2017-10-04 06:27] VITALS: TEMP 97.5
[2017-10-04] MEDS: METOPROLOL SUCCINATE (ER) 50 MG TAB.ER.24H PO SCH (09:16)
[2017-10-04] MEDS: TRIHEXYPHENIDYL 2 MG TAB PO SCH ×3 (09:16→16:53)
[2017-10-04] MEDS: HALOPERIDOL 5 MG TAB PO SCH (09:17)
[2017-10-04] MEDS: GABAPENTIN 400 MG CAP PO SCH ×3 (09:17→17:39)
[2017-10-04] MEDS: FAMOTIDINE 20 MG TAB PO SCH (09:17)
[2017-10-04] MEDS: buPROPion XL 300 MG TAB.ER.24H PO SCH (09:17)
[2017-10-04] MEDS: traMADol 50 MG TAB PO PRN (09:19)
[2017-10-04] MEDS: clonazePAM 1 MG TAB PO PRN ×2 (09:19→12:47)
--- NOTE | 2017-10-04 09:37 | P.DS ---
Providers Date of admission: 08/31/17 17:23 Expected date of discharge: 10/04/17 Attending physician: Ayo Horan Consults: 08/31/17 18:17 Consult Physician Routine Consulting Provider: Adela Mendosa Consult Reason/Comments: Follw up H & P Do you want consulting provider notified?: Yes Primary care physician: Hiram Castillo - Discharge Diagnosis(es) (1) Schizophrenia Current Visit: Yes Status: Acute Priority: High Hospital Course: Brief summary of admission note: This patient is a 27-year-old single male who was admitted to the mental health unit through the emergency room from the [facility]. The patient had presented to the emergency room for the second time in a short period for symptoms of acute psychosis. His symptoms of psychosis were interfering with his abilities to complete activities of daily living. He was noted to barricade himself in the room. He was noted to urinate on the floor and his hygiene grooming was poor. He was becoming agitated. The patient has a long history of chronic schizophrenia. For full details please refer to the psychiatric evaluation dated 09/01/2017. Summary of hospital course: The patient was initially admitted by Dr. Reeves I later assumed care of the patient. The patient was previously prescribed Saphris which was ineffective in managing his acute symptoms of psychosis. It was decided he required an injectable antipsychotic medication. We trialed oral invega and titrated to 9 mg daily. The patient reported side effects with the medication and it demonstrated insufficient efficacy while here on the mental health unit. The patient was then transitioned to Haldol ultimately. He received a Haldol decanoate injection of 100 mg on September 20. We did consult with his outpatient psychiatrist Dr. Monge during the course of the admission. The patient is known to have chronic psychosis at baseline. During the course of this admission he did demonstrate improvement in his behavior. His hygiene and grooming have improved he is no longer demonstrating any agitated behavior and has been directable. He is on a treatment order at this time which was obtained during this hospitalization. He is unhappy with being on Haldol and a decanoate form of the medication but we feel it is necessary for his well-being. Our plan is to transition the patient back to [facility] his prior [facility] setting. The patient is agreeable. Mental status exam: The patient is alert he is disheveled but his grooming is improved compared to time of admission. He has been bathing there is no follow odor. He is seated during the conversation. Eye contact is improved. He does have spontaneous speech and he continues to speak of his frustrations related to his care and the fact that he requires medication. Today he does recognize that he is on a treatment order. Insight and judgment chronically impaired but it is improved compared to when he was admitted. He is reporting no suicidal or homicidal ideation intent or plan. He demonstrates no verbal or physical aggressiveness. He demonstrates no abnormal involuntary movements. He is oriented to person place and date. Impressions 1. Schizophrenia, cannabis use disorder Plan: The patient is being discharged today from the mental health unit to return to [facility]. He will follow up with [facility] as part of his treatment order. He will continue on Haldol 10 mg twice daily Artane 2 mg 3 times daily Neurontin 800 mg 4 times daily Klonopin 1 mg 3 times daily Wellbutrin XL 300 mg daily. He was given an injection of Haldol decanoate 100 mg on 09/20/2017. The patient has improved from the time of admission and he is appropriate for outpatient care at this time. He is instructed to return to the hospital if any acute safety concerns. Patient Condition at Discharge: Stable Plan - Discharge Summary Discharge Rx Participant: No New Discharge Prescriptions: New Baclofen [Lioresal] 10 mg PO TID PRN #45 tab PRN Reason: Muscle Spasm Famotidine [Pepcid] 20 mg PO HS #30 tab Haloperidol [Haldol] 10 mg PO BID #60 tab Haloperidol Decanoate [Haldol D] 100 mg IM QMONTH #1 vial traMADol HCl [Ultram] 50 mg PO BID PRN tab PRN Reason: Pain Trihexyphenidyl [Artane] 2 mg PO AC-TID #90 tab Continue buPROPion XL [Wellbutrin XL] 300 mg PO DAILY #30 tab.er.24h clonazePAM [KlonoPIN] 1 mg PO TID PRN #45 tab PRN Reason: Anxiety Gabapentin 800 mg PO QID #60 tablet Metoprolol Succinate (ER) [Toprol XL] 50 mg PO DAILY #30 tab.er.24h Discontinued Asenapine [Saphris] 10 mg SUBLINGUAL HS #14 tab Zolpidem [Ambien] 10 mg PO HS PRN #7 tab PRN Reason: Insomnia Cyclobenzaprine [Flexeril] 10 mg PO BID PRN PRN Reason: Muscle Spasm Butalb/APAP/Caff 50-325-40Mg [Fioricet 50-325-40] 1 tab PO BID PRN PRN Reason: Headache Discharge Medication List Baclofen [Lioresal] 10 mg PO TID PRN #45 tab 09/29/17 [Rx] Famotidine [Pepcid] 20 mg PO HS #30 tab 09/29/17 [Rx] Gabapentin 800 mg PO QID #60 tablet 09/29/17 [Rx] Haloperidol Decanoate [Haldol D] 100 mg IM QMONTH #1 vial 09/29/17 [Rx] Haloperidol [Haldol] 10 mg PO BID #60 tab 09/29/17 [Rx] Metoprolol Succinate (ER) [Toprol XL] 50 mg PO DAILY #30 tab.er.24h 09/29/17 [Rx ] Trihexyphenidyl [Artane] 2 mg PO AC-TID #90 tab 09/29/17 [Rx] buPROPion XL [Wellbutrin XL] 300 mg PO DAILY #30 tab.er.24h 09/29/17 [Rx] clonazePAM [KlonoPIN] 1 mg PO TID PRN #45 tab 09/29/17 [Rx] traMADol HCl [Ultram] 50 mg PO BID PRN tab 09/29/17 [Rx] Follow up Appointment(s)/Referral(s): [facility] [Outside] - 10/05/17 2:00 pm (10-05-18 @ 14:00 with Delfino Izquierdo @ [facility] 10-06-17 @ 12:[address] Monge) Anna Gandhi MD [Primary Care Provider] - 1-2 days Patient Instructions/Handouts: Brief Psychotic Disorder (GEN) Activity/Diet/Wound Care/Special Instructions: Activity and diet as tolerated. Avoid the use of street drugs and alcohol. Remove all firearms from the home. Take all medications as prescribed. Follow up with you Primary Care provider in 1-2 days. When you are in need of refills on your medications please contact your medical provider and/or outpatient psychiatrist to have this done. Please go to scheduled outpatient appointment for aftercare. If symptoms return or become worse call the crisis line at and/or go to the nearest emergency room for an evaluation.
[2017-10-04 14:20] VITALS: BP 116/73; PULSE 104
[2017-10-04] MEDS: BACLOFEN 10 MG TAB PO PRN (16:53)
== END 2017-10-04 18:34 | disposition home or self-care (01) | DRG 885 ==
LOC: EC 13:56 → 3MHU 17:23
PROVIDERS: ADMIT Psychiatry & Neurology Psychiatry; ATTEND Psychiatry & Neurology Psychiatry
DX: F20.9 Schizophrenia, unspecified (principal); F12.90 Cannabis use, unspecified, uncomplicated; I10 Essential (primary) hypertension; Z79.899 Other long term (current) drug therapy; Z88.8 Allergy status to other drugs, medicaments and biological substances; G89.29 Other chronic pain; M54.5 Low back pain
CPT/HCPCS: 82075; 99284

== ENCOUNTER 2018-02-10 11:22 | Emergency (ER) | payer OTHER ==
[2018-02-10 11:29] VITALS: RESP 20; TEMP 98
--- NOTE | 2018-02-10 11:46 | ED ---
Psych HPI - General Chief Complaint: Psychiatric Symptoms Stated Complaint: Mental Health Time Seen by Provider: 02/10/18 11:31 Source: patient, RN notes reviewed, old records reviewed Mode of arrival: ambulatory - History of Present Illness Initial Comments: 27-year-old year old male presents emergency Department with history of suicidal ideation. Patient reports that he received his Haldol injection yesterday from [facility]. He's been court ordered to receive these medications. He states that after he gets them he has a suicidal thoughts. Patient reports is a some homicidal thoughts. He states that when receiving the Haldol shot he has auditory hallucinations. He states that as the opposite effect on him. Patient reports in summary also still his anxiety medication. He states is very anxious at this time. - Related Data Previous Rx's Medication Instructions Recorded Baclofen [Lioresal] 10 mg PO TID PRN #45 tab 09/29/17 Famotidine [Pepcid] 20 mg PO HS #30 tab 09/29/17 Gabapentin 800 mg PO QID #60 tablet 09/29/17 Haloperidol Decanoate [Haldol D] 100 mg IM QMONTH #1 vial 09/29/17 Haloperidol [Haldol] 10 mg PO BID #60 tab 09/29/17 Metoprolol Succinate (ER) [Toprol 50 mg PO DAILY #30 tab.er.24h 09/29/17 XL] Trihexyphenidyl [Artane] 2 mg PO AC-TID #90 tab 09/29/17 buPROPion XL [Wellbutrin XL] 300 mg PO DAILY #30 tab.er.24h 09/29/17 clonazePAM [KlonoPIN] 1 mg PO TID PRN #45 tab 09/29/17 traMADol HCl [Ultram] 50 mg PO BID PRN tab 09/29/17 clonazePAM [KlonoPIN] 1 mg PO TID #9 tablet 02/10/18 Allergies Allergy/AdvReac Type Severity Reaction Status Date / Time aripiprazole [From Abilify] Allergy Unknown Verified 08/31/17 21:17 fluphenazine HCl Allergy Unknown Verified 08/31/17 21:17 [From Prolixin] paliperidone [From Invega] Allergy Unknown Verified 08/31/17 21:17 risperidone [From Risperdal] Allergy Unknown Verified 08/31/17 21:17 fluphenazine enanthate AdvReac Severe Trismus Verified 09/02/17 02:32 [From Prolixin] Review of Systems ROS Statement: Those systems with pertinent positive or pertinent negative responses have been documented in the HPI. ROS Other: All systems not noted in ROS Statement are negative. Past Medical History Past Medical History: No Reported History Additional Past Medical History / Comment(s): Schizophrenia, right arm fracture , degenerative disc to lower back, and right wrist plate and screws History of Any Multi-Drug Resistant Organisms: None Reported Past Surgical History: Orthopedic Surgery Additional Past Surgical History / Comment(s): mouth surgery, reduction of right arm fracture. Past Psychological History: Anxiety, Panic Disorder, Schizophrenia Smoking Status: Never smoker Past Alcohol Use History: Occasional Past Drug Use History: None Reported General Exam - General Exam Comments Initial Comments: 27-year-old male. Alert and oriented. No acute distress. Limitations: no limitations General appearance: alert, in no apparent distress Head exam: Present: atraumatic, normocephalic, normal inspection Eye exam: Present: normal appearance, PERRL, EOMI. Absent: scleral icterus, conjunctival injection, periorbital swelling ENT exam: Present: normal exam, mucous membranes moist Neck exam: Present: normal inspection. Absent: tenderness, meningismus, lymphadenopathy Respiratory exam: Present: normal lung sounds bilaterally. Absent: respiratory distress, wheezes, rales, rhonchi, stridor Cardiovascular Exam: Present: regular rate, normal rhythm, normal heart sounds. Absent: systolic murmur, diastolic murmur, rubs, gallop, clicks GI/Abdominal exam: Present: soft, normal bowel sounds. Absent: distended, tenderness, guarding, rebound, rigid Extremities exam: Present: normal inspection, full ROM, normal capillary refill. Absent: tenderness, pedal edema, joint swelling, calf tenderness Back exam: Present: normal inspection Neurological exam: Present: alert, oriented X3, CN II-XII intact Psychiatric exam: Present: depressed, anxious (Patient is anxious tapping his foot.), suicidal ideation (Operative suicidal ideation denies any specific plan. ). Absent: normal affect, normal mood Skin exam: Present: warm, dry, intact, normal color. Absent: rash Course Vital Signs 02/10/18 11:28 Temperature 98.0 F Pulse Rate 102 H Respiratory 20 Rate Blood Pressure 135/100 O2 Sat by Pulse 98 Oximetry - Reevaluation(s) Reevaluation #1: 02/10/18 11:45 Breath nurse practitioner per diem test is 0. Patient is medically clear for psychiatric evaluation at this time. Medical Decision Making - Medical Decision Making 27-year-old male presents emergency Department chief complaint of anxiety and suicidal ideation. Plan. His only by [facility] self-image. Patient also concerned because somebody so his Klonopin. He is mainly concerned about going through withdrawals. Plain from [facility] and [facility] as the patient can follow up. They request that I fill a prescription for Klonopin for the next 3 days. Discussed and use as well as he follows up with psychiatrist in the next few days. They agree with this treatment plan. Patient will be discharged with his guardian. They'll be taking over his medication administration. - Lab Data Lab Results 02/10/18 Range/Units 11:25 Urine Opiates Screen Not Detected (NotDetected) Ur Oxycodone Screen Not Detected (NotDetected) Urine Methadone Screen Not Detected (NotDetected) Ur Propoxyphene Screen Not Detected (NotDetected) Ur Barbiturates Screen Detected H (NotDetected) U Tricyclic Antidepress Detected H (NotDetected) Ur Phencyclidine Scrn Not Detected (NotDetected) Ur Amphetamines Screen Not Detected (NotDetected) U Methamphetamines Scrn Not Detected (NotDetected) U Benzodiazepines Scrn Not Detected (NotDetected) Urine Cocaine Screen Not Detected (NotDetected) U Marijuana (THC) Screen Detected H (NotDetected) Disposition Clinical Impression: Acute anxiety, Medication refill Disposition: HOME SELF-CARE Condition: Good Instructions: Generalized Anxiety Disorder (ED) Additional Instructions: Patient is to follow-up with psychiatry and [facility]. Return to the emergency department if any alarming signs or symptoms occur. Prescriptions: clonazePAM [KlonoPIN] 1 mg PO TID #9 tablet Is patient prescribed a controlled substance at d/c from ED?: No If prescribed controlled substance>3 days was MAPS reviewed?: No When asked, does pt state using other controlled substances?: No Referrals: Anna Gandhi MD [Primary Care Provider] - 1-2 days Time of Disposition: 14:25
[2018-02-10 12:07] LABS: Amphetamine Screen,Urine Not Detected (NotDetected); Barbiturate Screen,Urine Detected (NotDetected); Benzodiazepines Screen,Urine Not Detected (NotDetected); Cocaine Screen,Urine Not Detected (NotDetected); Methadone Screen, Urine Not Detected (NotDetected); Opiate Screen,Urine Not Detected (NotDetected); Oxycodone Screen, Urine Not Detected (NotDetected); Phencyclidine Screen,Urine Not Detected (NotDetected); Tricyclic Antidepressant,Urine Detected (NotDetected); Urn Cannabinoid Scrn Detected (NotDetected)
[2018-02-10] MEDS ORDERED: LORazepam 1 MG TAB PO STA (12:34)
[2018-02-10 14:57] VITALS: BP 146/99; PULSE 106
== END 2018-02-10 14:57 | disposition home or self-care (01) ==
LOC: EC 11:22
DX: F41.9 Anxiety disorder, unspecified (principal); R45.851 Suicidal ideations; R44.0 Auditory hallucinations; Z76.0 Encounter for issue of repeat prescription; Z88.8 Allergy status to other drugs, medicaments and biological substances
CPT/HCPCS: 80306; 82075; 99284

== ENCOUNTER 2019-03-26 20:45 | Inpatient (IN) | payer MEDICARE, MEDICAID ==
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
[2019-03-26] MEDS: CEPHALEXIN 500 MG CAP PO SCH (23:19)
[2019-03-27] MEDS ORDERED: MAGNESIUM HYDROXIDE 2,400 MG/10 ML CUP PO PRN (00:19)
[2019-03-27] MEDS ORDERED: LORazepam 1 MG TAB PO PRN (00:19)
[2019-03-27] MEDS ORDERED: ZIPRASIDONE 20 MG VIAL IM PRN (00:19)
[2019-03-27] MEDS ORDERED: MAG HYDROX/AL HYDROX/SIMETH 30 ML CUP PO PRN (00:19)
[2019-03-27] MEDS ORDERED: LORazepam 2 MG/ML INJ IM PRN (00:22)
[2019-03-27] MEDS ORDERED: LORazepam 1 MG TAB PO STA (00:33)
[2019-03-27] MEDS ORDERED: PERMETHRIN 5% CREAM 60 GM TUBE TOPICAL ONE (02:33)
--- NOTE | 2019-03-27 02:34 | P.HPIM ---
History of Present Illness H&P Date: 03/27/19 The patient is a 28 yo M with a PMH of polysubstance abuse and psychosis presents to the ED for paranoid behavior. The patient was supposedly sitting with knives threatening to kill the people in the bushes, with no specific names given. The patient was seen in the [facility]. The patient had pressured speech with very disorganized throught process and thereby wasn't answering questions appropriately. He complained of rashes all over his body though denied any additional complaints. When asked about substance use, he endorsed only using marijuana occasionally. Denied fever, chills, chest pain, or SOB. Further denied nausea, vomiting, diarrhea, headache, or visual disturbances. The patient was petitioned by [facility] due to poor follow-up and possible non-compliance with his psychiatric medications. Review of Systems Pertinent positives and negatives as discussed in HPI, a complete review of systems was performed and all other systems are negative. Past Medical History Past Medical History: No Reported History Additional Past Medical History / Comment(s): Schizophrenia, right arm fracture, degenerative disc to lower back, and right wrist plate and screws History of Any Multi-Drug Resistant Organisms: None Reported Past Surgical History: Orthopedic Surgery Additional Past Surgical History / Comment(s): mouth surgery, reduction of right arm fracture. Past Psychological History: Anxiety, Panic Disorder, Schizophrenia Smoking Status: Never smoker Past Alcohol Use History: Occasional Past Drug Use History: None Reported - Past Family History Mother Brother(s) Family Medical History: Unable to Obtain Medications and Allergies Home Medications Medication Instructions Recorded Confirmed Type Butalb/APAP/Caff 50-325-40Mg 1 tab PO DAILY PRN 03/26/19 03/26/19 History [Fioricet 50-325-40] Cyclobenzaprine [Flexeril] 10 mg PO BID PRN 03/26/19 03/26/19 History Gabapentin [Neurontin] 800 mg PO QID 03/26/19 03/26/19 History Ibuprofen [Motrin] 800 mg PO DAILY 03/26/19 03/26/19 History OLANZapine [ZyPREXA] 5 mg PO HS 03/26/19 03/26/19 History Allergies Allergy/AdvReac Type Severity Reaction Status Date / Time aripiprazole [From Abilify] Allergy Unknown Verified 03/26/19 21:04 fluphenazine HCl Allergy Unknown Verified 03/26/19 21:04 [From Prolixin] paliperidone [From Invega] Allergy Unknown Verified 03/26/19 21:04 risperidone [From Risperdal] Allergy Unknown Verified 03/26/19 21:04 fluphenazine enanthate AdvReac Severe Trismus Verified 03/26/19 21:04 [From Prolixin] Physical Exam Vitals: Vital Signs Temp Pulse Resp BP Pulse Ox 03/26/19 20:47 98.7 F 98 18 143/93 96 Intake and Output 03/26/19 03/26/19 03/27/19 14:59 22:59 06:59 Other: Weight 82.1 kg General: Disheveled M, non toxic, no distress, appears older than stated age, normal weight Derm: Small erythematous lesions throughout, especially around webs of fingers, warm, dry, LLE medial area of erythema and skin breakdown Head: atraumatic, normocephalic, symmetric Eyes: EOMI, no lid lag, anicteric sclera, pupils equal round reactive to light ENT: Nose and ears atraumatic, no thrush, no pharyngeal erythema Neck: No thyromegaly, no cervical lymphadenopathy, trachea midline, supple Mouth: no lip lesion, mucus membranes moist Cardiovascular: S1S2 reg, no murmur, positive posterior tibial pulse bilateral, no edema, capillary refill less than 2 seconds Lungs: CTA bilateral, no rhonchi, no rales , no accessory muscle use Abdominal: soft, nontender to palpation, no guarding, no appreciable organomegaly, normal bowel sounds Ext: no gross muscle atrophy, muscle strength 5 out of 5 in all 4 extremities grossly, no contractures Psych: Pressured speech, disorganized thought behavior, paranoid Assessment and Plan Plan: Erythematous lesions, likely scabies -Will treat w/ Permethrin ointment -Contact isolation LLE cellulitis -Will c/w Keflex Psychosis -As per psychiatry -F/u UTox Tobacco abuse -C/w Nicotine patch -Advised on importance of cessation Thank you for allowing us to participate in the care of this patient. We will follow peripherally. Do not hesitate to contact us with questions. Someone can be reached from the [facility] hospitalist group at all hours of the day at [phone].
[2019-03-27] MEDS: CEPHALEXIN 500 MG CAP PO SCH ×3 (06:57→21:42)
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
[2019-03-27] MEDS: NICOTINE 14MG/24HR PATCH TRANSDERM SCH (11:40)
[2019-03-28] MEDS: CEPHALEXIN 500 MG CAP PO SCH ×3 (07:02→20:33)
[2019-03-28] MEDS: NICOTINE 14MG/24HR PATCH TRANSDERM SCH (08:19)
[2019-03-28] MEDS: ACETAMINOPHEN TAB 325 MG TAB PO PRN (11:31)
[2019-03-28] MEDS ORDERED: OLANZapine 5 MG TAB PO PRN (14:12)
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
[2019-03-28] MEDS: GABAPENTIN 400 MG CAP PO SCH ×2 (15:00→20:33)
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
[2019-03-28] MEDS ORDERED: OLANZapine 10 MG TAB PO SCH (21:00)
[2019-03-29] MEDS: CEPHALEXIN 500 MG CAP PO SCH ×3 (06:16→20:40)
[2019-03-29] MEDS: NICOTINE 14MG/24HR PATCH TRANSDERM SCH (07:35)
[2019-03-29] MEDS: GABAPENTIN 400 MG CAP PO SCH ×3 (07:35→20:40)
--- NOTE | 2019-03-29 11:37 | PN ---
PROGRESS NOTE DATE OF SERVICE: 03/29/2019 CHIEF COMPLAINT: The patient had threatened to jump off the roof of his house. He was disorganized and had hallucinations. INTERVAL HISTORY: Patient continues to be quite distressed. His main issue is having to be admitted to the hospital. he disagrees with all that was documented in his petition for hospitalization. He said that he has proof about what he states was the situation before his coming into the hospital. He said there was no supporting documentation on the part of others who petitioned him for the hospital stay, he said that he slept excessively last night which he blamed on Zyprexa. Nursing documented that he slept 6 hours last night. Today he has been up. He did go to groups yesterday. He said he slept through breakfast this morning. He was very distressed about being in the hospital. He denies that he is having any hallucinations or delusional thoughts. He did not believe there was behavior he had before he came into the hospital that would indicate that he disagreed with what the case picker from [facility] had documented. Patient states today that he is willing to make an effort to engage in the treatment program on the unit. We talked at length about the legal papers he has and that he needed to understand that for good or bad, he would not be discharged earlier than next week. Patient requested not to take any antipsychotic medication. He says it only makes him feel worse. We negotiated that he could try off the Zyprexa, though I indicated that for his benefit, the more he could engage in treatment, the better it will be for him in his working for discharge. It is unclear that he had any difficulty with Zyprexa, whether or not he had excessive sedation is unclear. MENTAL STATUS: Patient came into the office for the most part. He was quite restless, agitated and distressed. He talked at length about how everything on his petition was false documentation and that he disagreed with it. When I tried to have him focus on immediate issues of his being in the hospital, he kept talking about how he was falsely accused of having psychosis and disorganized behavior. His affect was intense except just at the end of the interview he calmed down significantly, just at the end of a fairly extended interview. His mood was dysphoric. He was significantly distressed. It was difficult to assess issues of thought disorder. Cognition was clear. ASSESSMENT: I will continue the current diagnosis. At this point, I will discontinue Zyprexa and he will be on no regularly prescribed antipsychotic medications. I discussed with the patient a plan to see how he does off antipsychotic. I encouraged him to attend groups and to do some therapeutic physical activity to help calm some of this stress that he experiences. At the end of the interview, patient was in agreement with this and said he would attend groups and would do some physical activity to relax. I reviewed his petition and involuntary hospitalization process. Will continue to focus on stabilization and discharge planning. EDIS / VIOLETA: [id number] /
[2019-03-30] MEDS: CEPHALEXIN 500 MG CAP PO SCH ×3 (06:28→20:38)
[2019-03-30] MEDS: GABAPENTIN 400 MG CAP PO SCH ×3 (07:39→20:38)
[2019-03-30 15:23] VITALS: BMI 23.8
--- NOTE | 2019-03-30 18:41 | PN ---
PROGRESS NOTE DATE OF SERVICE: 03/30/2019. CHIEF COMPLAINT: The patient had threatened to jump off the roof of his house. He was disorganized and had hallucinations. INTERVAL HISTORY: The patient has been doing fair. He had a quiet evening last night. He will wander the unit. Generally, he keeps to himself. He does not seem to pay too much attention to things going on around him. Staff documented that he slept 6 hours last night. Today, he has been up. He comes out in the day area. He does not spend too much time out in the milieu and seems to be most comfortable keeping to himself. He noted that today he has been attending groups and feels that he has been making an effort at being appropriate in the treatment process. Notes from groups indicate that he has been attentive, compliant and appropriate though also blunted he has had a calm manner overall. When I saw him, he was calm. He was pleased with the idea that his Zyprexa was discontinued. He feels that he has been managing well. His main focus was on what he can do to be discharged as early as possible. He said, on the other hand, he will accept the treatment at this point. He believes that he could have been managing better at home in a way that will have kept him from coming into the hospital. He was willing to have his mother come in for family meeting to address discharge planning issues. He currently is not on any psychotropic medications. MENTAL STATUS: Patient gave fairly good eye contact. Psychomotor activity was a little restless, though not significantly so. He answered questions directly. His thoughts were clear, coherent, and goal directed. His affect was a little constricted. He had a quiet calm manner. He talked in a soft voice. He seemed quite relaxed. His mood was reserved though not clearly depressed. He did not appear to be distressed in any way. There was no indication of thought disorder. ASSESSMENT: I will continue the current diagnosis and treatment plan. The patient will continue off of Zyprexa, which was the only psychotropic he was on. He said if he did need to take an antipsychotic that would be his preferred medication, though he feels that he is handling things well without it. At this point, the most important next step will be to set up a family meeting with the patient and mother as well as to coordinate with his Community Mental [facility] laundry equipment operator. I reviewed issues with the patient in regards to expectations for him to plan towards discharge. We will continue to focus on stabilization and discharge planning. MMURBANO / JANAYN: [id number] /
[2019-03-31] MEDS: CEPHALEXIN 500 MG CAP PO SCH ×3 (06:15→20:36)
[2019-03-31] MEDS: GABAPENTIN 400 MG CAP PO SCH ×3 (08:13→20:36)
--- NOTE | 2019-03-31 15:20 | PN ---
PROGRESS NOTE DATE OF SERVICE: 03/31/2019. CHIEF COMPLAINT: The patient had threatened to jump off the roof of his house. He was disorganized and had hallucinations. INTERVAL HISTORY: The patient has been doing fair. Overall, he seems to be improving with a calmer mood and better outlook. As noted yesterday, I took him off of Zyprexa after 1 day based on his request. He has been off psychotropic medications since Monday. He has been doing better overall. He maintains a calm mood. He wanders about the unit. He will interact some with others. He generally has been appropriate in his behavior. He seems to be in a fairly good mood. He has been attending groups and has been appropriate in his interactions there. It is noted that when I talked to him today, he had a major concern about the fact that he had clothes in a bag that apparently were likely contaminated with scabies. My understanding is the clothes bag was discarded based on direction from mother who is the guardian. 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 At this point, staff has not been able to find the bag. It is noteworthy that the patient talked about these concerns in an appropriate way. He said he was worried about especially the missing documentation, though he talked about it in a calm reasonable manner. He overall seems to be doing fairly well. MENTAL STATUS: Patient sat without restlessness. He gave good eye contact. Psychomotor activity and speech were normal. His thoughts were clear, coherent, and goal directed. His affect was a little constricted. His mood was quiet. He did not appear to be distressed at all. There was no indication of thought disorder. Cognition was clear. ASSESSMENT: I will continue the current diagnosis and treatment plan. Patient is doing fairly well. He is making progress without his being on any psychotropic medications. It will be important to set up a family meeting with the patient with the patient's mother as part of discharge planning. Housekeeping and security have been notified in regards to the missing items as indicated above. We will continue to focus on stabilization and discharge planning. MMODL / JANAYN: [id number] /
[2019-03-31] MEDS: ACETAMINOPHEN TAB 325 MG TAB PO PRN (20:36)
[2019-04-01] MEDS: CEPHALEXIN 500 MG CAP PO SCH ×3 (06:13→21:34)
[2019-04-01] MEDS: GABAPENTIN 400 MG CAP PO SCH ×3 (08:36→21:34)
--- NOTE | 2019-04-01 13:47 | P.PN ---
Progress Note - Text Progress Note Date: 04/01/19 Interval History: Patient is a 28-year-old male who was seen today in coverage and reports that he has only been taking the Zyprexa once here because he took it and then could not participate in groups because it made him too sleepy. Patient states that he has been on Zyprexa 5 mg as an outpatient but never took it on a regular basis. Patient states that he did take Neurontin 800 mg 4 times a day prescribed by his neurologist as an outpatient. Patient denies any auditory or visual hallucinations and states he is not feeling paranoid. He states he felt the antipsychotics of caused him to hear voices in the past. States he was admitted due to a misunderstanding. Mental Status: Appearance/Attitude: Patient is dressed in a hospital gown, makes eye contact and was cooperative. Behavior: Patient does not display any psychomotor agitation or retardation. Speech/Language: Patient's speech is spontaneous, normal volume and rhythm and he is coherent Thought Process: Patient is circumstantial in his answers, no evidence of loose association or flight of ideas Thought Content: Patient denies auditory or visual hallucinations and no paranoid or delusional ideation is elicited. Patient states he was admitted due to a misunderstanding, does not wish to take medication on a regular basis and states after taking the Zyprexa 5 mg once here he was too sleepy to attend groups and so has declined taking it. Patient states that he sleeping and eating well. Suicidal/Homicidal Ideation: Patient denies any current suicidal or homicidal ideation Sensorium/Cognition: Patient is alert and oriented to person, place and time Mood/Affect: Patient's mood is bland his affect is slightly blunted Insight/Judgment: Patient's insight and judgment are limited Assessment: Patient refuses medication, stating that he'll take the Neurontin but not any of the antipsychotics. He states after 1 dose of Zyprexa he was too sleepy to participate in groups. He states that the Zyprexa and also been prescribed as an outpatient 5 mg at bedtime but that he only took it occasionally. Patient states that it was a misunderstanding that brought him to the hospital and went into a long circumstantial story about a house across the street with people who were in the house, a bike in the alley, the police being called and being petitioned by the mobile crisis unit. Plan: Patient is on Zyprexa 5 mg 3 times a day as needed, Neurontin 800 mg 3 times a day and continues on Keflex for the scabies. Patient has been attending groups and activities and encouraged to do so. Patient deferred today, patient be encouraged to take his medication and consider an antipsychotic tomorrow on a regular basis.
[2019-04-02] MEDS: CEPHALEXIN 500 MG CAP PO SCH ×3 (06:29→21:14)
[2019-04-02] MEDS: GABAPENTIN 400 MG CAP PO SCH ×3 (08:13→21:14)
--- NOTE | 2019-04-02 12:10 | P.PN ---
Progress Note - Text Interval history: The patient is found in the self while in speaking with the community mental health liaisons. In my absence the patient was taken off of an antipsychotic medication. Zyprexa was ordered as needed. The patient has deferred when he met with his attorney law clerk. He indicates that he is willing to continue the oral Zyprexa but adamantly states he does not wish to take an injectable Depo form. He continues to state that they make him feel suicidal and he feels worse. This is something that Dr. Monge had echoed when I spoke with him. Our concern is that the patient consistently doesn't stay on medication. He indicates that he has been abstaining from any alcohol or illicit drug use other than marijuana. Staff reported the patient's been doing well over the weekend he has been attending to his hygiene grooming he has been easily directed and has demonstrated no agitated behavior. Social work is working on setting up a support meeting involving his mother. Mental status exam: The patient is alert he is dressed in hospital gowns hygiene grooming adequate. Speech is fluent spontaneous. He is circumstantial he demonstrates no tangential thinking loose associations or flight of ideas. He is able to appropriately express frustration during interview he demonstrates no verbal or physical aggressiveness. He is reporting no suicidal or homicidal ideation intent or plan at this time. He maintains a constricted affect for the most part. He demonstrates no involuntary repetitive movements. He is oriented to person place and date. He indicates his mood is good. He demonstrates no pressured speech he does not appear hypomanic or manic. Plan: The patient will be given Zyprexa 10 mg at bedtime. He is willing to take this medication is an oral dose. We discuss our ongoing concerns that he's had numerous hospitalizations over the years and that he has failed to comply with oral medications in the past. Historically he has abused substances as well which confounded the situation. He indicates he's fearful of being placed on an injectable medication again and describes the above noted side effects. We will consider treatment options. We will ask social work to arrange a support meeting. We will monitor him for safety and encourage participation in the milieu.
[2019-04-02 20:09] VITALS: PULSE 93
[2019-04-02] MEDS ORDERED: OLANZapine 10 MG TAB PO SCH (21:00)
[2019-04-03 07:19] VITALS: BP 119/77; RESP 16; TEMP 97.8
[2019-04-03] MEDS: GABAPENTIN 400 MG CAP PO SCH (08:19)
--- NOTE | 2019-04-03 11:56 | P.DS ---
Providers Date of admission: 03/27/19 00:07 Expected date of discharge: 04/03/19 Attending physician: Ayo Horan Consults: 03/27/19 16:17 Consult Physician Routine Consulting Provider: Adela Mendosa Consult Reason/Comments: H&P Do you want consulting provider notified?: Already Contacted Primary care physician: Hiram Castillo - Discharge Diagnosis(es) (1) Schizophrenia Current Visit: No Status: Acute Priority: High (2) Cannabis use disorder, mild, abuse Current Visit: Yes Status: Acute Priority: Medium Hospital Course: Brief summary of admission note: This patient is a 28-year-old single male who was admitted to the mental health unit through the emergency room on a petition for acute symptoms of psychosis. The patient was noted to be on the roof of his home and threatened to jump. He had made statements that seem paranoid nature. The patient was brought to the hospital for evaluation. He is well known to our psychiatric service and carries a diagnosis of schizophrenia. He was no longer on a treatment order and we believe he was not complying with his medication. For full details please refer to my psychiatric evaluation dated 03/27/2019. Summary of hospital course: The patient was initially evaluated by myself on 03/27/2019. He was acutely psychotic and provided limited history. He had presented with cellulitis of his foot and infestation of scabies. He had indicated that he was not taking the Zyprexa as prescribed. The [facility] mental health records were reviewed I did speak with Dr. Monge. We had formulated a plan of obtaining a treatment order and using an injectable medication. I was away for several days on vacation and was covered by Dr. Hinkle. During that time the patient seemed to significantly psychiatrically clear. He was taken off of psychotropic medication and was able to sign a deferral agreement at his deferral conference. Upon my return the patient did appear stable. He was calm cooperative and was willing to follow recommendations. He was adamant that he could no longer use Haldol decanoate and we were faxed some documentation that it was believed to have caused the severe skin rash involving his hands. Numerous times he states that he felt very uncomfortable on injectable medications in terms of restlessness and he felt that that contributed to him having suicidal thoughts. He indicated he was willing to continue the Zyprexa each day as prescribed. He indicated he would adhere to the deferral agreement. I discussed the case with the community mental health liaisons. We discussed his case at length during treatment team meeting. We decided not to force a court hearing as in his current state the the order would likely not be obtained. The patient has been in contact with his mother who is his guardian. She is agreeable to the current treatment plan and will participate in a support meeting today. Mental status exam: The patient is alert he presents with good hygiene grooming. He is pleasant cooperative and attentive in the session. He indicates his mood is good affect is constricted he demonstrates a limited range. He reports no suicidal or homicidal ideation intent or plan. He reports no auditory or visual hallucinations he is reporting no specific delusions. He may have some residual symptoms of psychosis that he is underreporting but it is not impacting his function on the mental health unit. He demonstrates no verbal or physical aggressiveness he demonstrates no involuntary repetitive movements. Insight and judgment are improved from time of admission. He is oriented to person place and date. He readily engages in conversation he describes future oriented thinking. Impressions 1. Schizophrenia, cannabis use disorder Plan: The patient is being discharged mental health unit today as he has clinically stabilized. He is on a deferral agreement we discussed the details of that agreement and the consequences of not adhering to the agreement. Zyprexa 10 mg at bedtime is prescribed. He is instructed that he needs to comply with that each day. He is instructed to abstain from any use of alcohol marijuana or any illicit drug as these substances will elicit symptoms of psychosis and elevate his safety risk. He will participate in a support meeting involving his mother and social work today prior to discharge. At this time t here is no imminent safety risk he does not require continued hospitalization on an involuntary basis. He is instructed to return to the hospital with any safety concerns. Patient Condition at Discharge: Stable Plan - Discharge Summary New Discharge Prescriptions: New OLANZapine [ZyPREXA] 10 mg PO HS #30 tab Continue Gabapentin [Neurontin] 800 mg PO QID Discontinued Cyclobenzaprine [Flexeril] 10 mg PO BID PRN PRN Reason: MUSCLE SPASMS Butalb/APAP/Caff 50-325-40Mg [Fioricet 50-325-40] 1 tab PO DAILY PRN PRN Reason: Headache OLANZapine [ZyPREXA] 5 mg PO HS Ibuprofen [Motrin] 800 mg PO DAILY Discharge Medication List Gabapentin [Neurontin] 800 mg PO QID 03/26/19 [History] OLANZapine [ZyPREXA] 10 mg PO HS #30 tab 04/03/19 [Rx] Follow up Appointment(s)/Referral(s): [facility] [Outside] - 04/05/19 8:00 am (8:00 on 04-05-[address] Traylor 3:00 0n 04-15-19 with Delfino Izquierdo ) Anna Gandhi MD [Primary Care Provider] - 1-2 days Activity/Diet/Wound Care/Special Instructions: Activity and diet as tolerated. No guns or weapons in the home. Refrain from alcohol and street drugs that are not prescribed by your physician. TAke all medications as prescribed, and attend all follow up appointments as scheduled. If in need of medication refills, please go to your primary care physician, or to your out patient psychiatric provider. If in crisis, please call , or go to the nearest ER.
== END 2019-04-03 13:57 | disposition home or self-care (01) | DRG 885 ==
LOC: EC 20:45 → EEVIPCON 20:45 → 3MHU 03-27 00:07
PROVIDERS: ADMIT Psychiatry & Neurology Psychiatry; ATTEND Psychiatry & Neurology Psychiatry
DX: F20.9 Schizophrenia, unspecified (principal); L03.116 Cellulitis of left lower limb; F41.0 Panic disorder [episodic paroxysmal anxiety]; B86 Scabies; B88.8 Other specified infestations; F12.10 Cannabis abuse, uncomplicated; R45.1 Restlessness and agitation; F39 Unspecified mood [affective] disorder; Z78.9 Other specified health status; Z88.8 Allergy status to other drugs, medicaments and biological substances; Z98.890 Other specified postprocedural states; Z79.899 Other long term (current) drug therapy; Z91.83 Wandering in diseases classified elsewhere
CPT/HCPCS: 82075; 99285

== ENCOUNTER 2019-07-26 20:53 | Inpatient (IN) | payer MEDICARE, MEDICAID ==
--- NOTE | 2019-07-26 21:37 | ED ---
Psych HPI - General Chief Complaint: Psychiatric Symptoms Stated Complaint: court pickup Time Seen by Provider: 07/26/19 21:01 Source: patient, police Mode of arrival: ambulatory Limitations: altered mental status (Not fully cooperative) - History of Present Illness Initial Comments: This patient is a 28-year-old man who does reportedly have history of schizophrenia, brought by [facility] department personnel on a pickup order. He per the pickup order has not been compliant with his treatment plan. When I interview the patient, he is not forthcoming and states that he is going to jesus everyone unless she is released immediately. The patient is willing to say that he does not have any medical complaints. MD Complaint: other -: unknown - Related Data Home Medications Medication Instructions Recorded Confirmed Gabapentin [Neurontin] 800 mg PO QID 03/26/19 07/27/19 Butalbital/Aspirin/Caffeine 1 tab PO Q4H PRN 07/26/19 07/27/19 [[place]-Fbpezuk-Vtuyzcqz 50-325-40 mg] Halobetasol Propionate 1 applic TOPICAL DAILY PRN 07/26/19 07/27/19 Ibuprofen [Motrin] 800 mg PO BID 07/26/19 07/27/19 hydrOXYzine HCL [Atarax] 10 mg PO HS PRN 07/26/19 07/27/19 Previous Rx's Medication Instructions Recorded OLANZapine [ZyPREXA] 10 mg PO HS #30 tab 04/03/19 Allergies Allergy/AdvReac Type Severity Reaction Status Date / Time aripiprazole [From Abilify] Allergy Unknown Verified 07/27/19 17:50 fluphenazine HCl Allergy Unknown Verified 07/27/19 17:50 [From Prolixin] paliperidone [From Invega] Allergy Unknown Verified 07/27/19 17:50 risperidone [From Risperdal] Allergy Unknown Verified 07/27/19 17:50 fluphenazine enanthate AdvReac Severe Trismus Verified 07/27/19 17:50 [From Prolixin] Review of Systems ROS Statement: Those systems with pertinent positive or pertinent negative responses have been documented in the HPI. ROS Other: All systems not noted in ROS Statement are negative. Limitations: ROS unobtainable due to patients medical condition (Denies medical complaints, but not fully cooperative with ROS) Past Medical History Past Medical History: No Reported History Additional Past Medical History / Comment(s): Schizophrenia, right arm fracture, degenerative disc to lower back, and right wrist plate and screws History of Any Multi-Drug Resistant Organisms: None Reported Past Surgical History: Orthopedic Surgery Additional Past Surgical History / Comment(s): mouth surgery, reduction of right arm fracture. Past Psychological History: Anxiety, Panic Disorder, Schizophrenia Smoking Status: Never smoker - Past Family History Mother Brother(s) Family Medical History: Unable to Obtain General Exam General appearance: alert, in no apparent distress Head exam: Present: atraumatic, normocephalic Eye exam: Present: normal appearance. Absent: scleral icterus, conjunctival injection Respiratory exam: Present: normal lung sounds bilaterally. Absent: respiratory distress, wheezes, rales, rhonchi, stridor Cardiovascular Exam: Present: regular rate, normal rhythm, normal heart sounds. Absent: systolic murmur, diastolic murmur, rubs, gallop Neurological exam: Present: alert, normal gait Psychiatric exam: Present: other (Not cooperative with psychiatric exam) Skin exam: Present: warm, dry, intact, normal color. Absent: rash Course Vital Signs 07/26/19 20:57 Temperature 97.0 F L Pulse Rate 110 H Respiratory 18 Rate Blood Pressure 158/114 O2 Sat by Pulse 98 Oximetry Medical Decision Making - Lab Data Lab Results 07/26/19 Range/Units 22:44 Urine Opiates Screen Not Detected (NotDetected) Ur Oxycodone Screen Not Detected (NotDetected) Urine Methadone Screen Not Detected (NotDetected) Ur Propoxyphene Screen Not Detected (NotDetected) Ur Barbiturates Screen Detected H (NotDetected) U Tricyclic Antidepress Not Detected (NotDetected) Ur Phencyclidine Scrn Not Detected (NotDetected) Ur Amphetamines Screen Not Detected (NotDetected) U Methamphetamines Scrn Not Detected (NotDetected) U Benzodiazepines Scrn Not Detected (NotDetected) Urine Cocaine Screen Not Detected (NotDetected) U Marijuana (THC) Screen Detected H (NotDetected) Disposition Clinical Impression: Schizophrenia Disposition: ADMITTED IP TO THIS [facility] Condition: Serious
[2019-07-26 23:09] LABS: Amphetamine Screen,Urine Not Detected (NotDetected); Barbiturate Screen,Urine Detected (NotDetected); Benzodiazepines Screen,Urine Not Detected (NotDetected); Cocaine Screen,Urine Not Detected (NotDetected); Methadone Screen, Urine Not Detected (NotDetected); Opiate Screen,Urine Not Detected (NotDetected); Oxycodone Screen, Urine Not Detected (NotDetected); Phencyclidine Screen,Urine Not Detected (NotDetected); Tricyclic Antidepressant,Urine Not Detected (NotDetected); Urn Cannabinoid Scrn Detected (NotDetected)
[2019-07-27] MEDS ORDERED: MAGNESIUM HYDROXIDE 2,400 MG/10 ML CUP PO PRN (01:42)
[2019-07-27] MEDS ORDERED: MAG HYDROX/AL HYDROX/SIMETH 30 ML CUP PO PRN (01:42)
[2019-07-27] MEDS ORDERED: ZIPRASIDONE 20 MG VIAL IM PRN (02:00)
[2019-07-27] MEDS: NEOMYCIN-BACITRACIN-POLY OINT 14 GM TUBE TOPICAL SCH ×2 (13:26→21:15)
[2019-07-27] MEDS: BUTALB/APAP/CAFF 50-325-40MG TAB PO PRN (16:14)
--- NOTE | 2019-07-27 19:33 | P.HP ---
Psychiatric H&P - . H&P Date: 07/27/19 History & Physical: Allergies Allergy/AdvReac Type Severity Reaction Status Date / Time aripiprazole [From Abilify] Allergy Unknown Verified 07/27/19 17:50 fluphenazine HCl Allergy Unknown Verified 07/27/19 17:50 [From Prolixin] paliperidone [From Invega] Allergy Unknown Verified 07/27/19 17:50 risperidone [From Risperdal] Allergy Unknown Verified 07/27/19 17:50 fluphenazine enanthate AdvReac Severe Trismus Verified 07/27/19 17:50 [From Prolixin] Vital Signs Temp 97.0 F L 07/26/19 20:57 Pulse 67 07/27/19 01:34 Resp 16 07/27/19 01:34 BP 158/98 07/27/19 01:34 Pulse Ox 98 07/26/19 20:57 Intake & Output 07/27/19 07/27/19 07/28/19 06:59 18:59 05:59 Weight 63.503 kg Laboratory Last Values Urine Opiates Screen Not Detected (NotDetected) 07/26/19 22:44 Ur Oxycodone Screen Not Detected (NotDetected) 07/26/19 22:44 Urine Methadone Screen Not Detected (NotDetected) 07/26/19 22:44 Ur Propoxyphene Screen Not Detected (NotDetected) 07/26/19 22:44 Ur Barbiturates Screen Detected (NotDetected) H 07/26/19 22:44 U Tricyclic Antidepress Not Detected (NotDetected) 07/26/19 22:44 Ur Phencyclidine Scrn Not Detected (NotDetected) 07/26/19 22:44 Ur Amphetamines Screen Not Detected (NotDetected) 07/26/19 22:44 U Methamphetamines Scrn Not Detected (NotDetected) 07/26/19 22:44 U Benzodiazepines Scrn Not Detected (NotDetected) 07/26/19 22:44 Urine Cocaine Screen Not Detected (NotDetected) 07/26/19 22:44 U Marijuana (THC) Screen Detected (NotDetected) H 07/26/19 22:44 07/27/19 19:51 Chief complaint Patient brought in to ER on a lemon picker order. History of presenting illness "I don't know why uvaldo here, "I am doing every thing i am supposed to do, my case management manager visits me at home, i go to my appointments". Patient denies symptoms of depression. He says he hangs out with friends to do stuff. He reports good sleep and appetite. He claims taking good care of self, however his grooming and hygeine were very poor with unkempt hair and foul body odor. It is unclear if his living conditions are up to the standard as patient is very vague with his answers. He refused to answer if he was living alone are with others. He stated he does not believe he has mental illness but states he takes medications he is supposed to take. He reports taking zyprexa 10mg po qhs for reasons not known to him. He also reports taking neurontin 800mg po qid for headaches prescribed by his neurologist. He stated his medications help him in all different ways. He denies history of auditory or visual hallucinations. He denies paranoid ideations. He denies suicidal or homicidal ideations. He is guarded and minimizes his problems. He denies use of illicit drugs. when asked about his urine drug screen being positive for marijuana , he stated it is legal. He reports smoking marijuana few times a week of unknown amounts stating he doesn't keep track of it. Per medical records patient has history of poor follow-up and non-compliance with his psychiatric treatment. Past psychiatric history Patient is a poor historian and most of the history was obtained from his prior medical records. patient has had numerous inpatient psychiatric hospitalizations. He was discharged from [facility] on 04/03/19. He carries a diagnosis of schizophrenia and has been prescribed various psychotropic medications. Substance use history Reports smoking marijuana few times a week of unknown amounts stating he doesn't keep track of it. He denies use of other illicit drugs. Legal problems Denies Family psychiatric treatment history Denies Medical history He reports history of headaches for which he takes neurontin 800mg po qid prescr ibed by his neurologist. Per medical records mouth surgery, reduction of right arm fracture, degenerative disc to lower back, and right wrist plate and screws. Social history He claims he was born in [place]. Raised by both parents. Denies history of abuse. He claims to have completed 12 th grade educations and reports to have regular classes. He stated he is single but stated he does not want to disclose about children stating I dont want to talk about it. He reports supporting himself through work. Per medical records he lives alone and has a disability income. Mental status exam 28 year old male, appears his stated age in poor grooming and hygiene with foul body odor. He maintains good eye contact. No abnormal movements noted. His speech and thought process are evasive. His mood is reported as good and affect constricted. He denies current auditory or visual hallucinations. He denies paranoid ideations. He is alert and oriented x4. He denies current suicidal or homicidal ideations. His insight and judgement are poor. Diagnosis Schizophrenia, marijuana use disorder Plan 28-year-old male admitted through emergency department on a lemon picker order. consult medicine for H&P psychosocial evaluation. Obtain collateral information about his current living standards and history of treatment compliance . will be continued on his home medications zyprexa 10mg po qhs and neurontin 400mg po qid which will be increased to his current dose of 800mg po qid which he says is prescribed through his neurologist for headaches. Monitor for symptoms will receive milieu therapy group therapy individual therapy occupational therapy recreational therapy and medication education. Discharge with outpatient follow-up. Treatment goals: Medication stabilization Insight improvement and encourage treatment adherence. development of better coping skills 07/27/19 19:52 07/27/19 19:53 07/28/19 09:17 07/28/19 09:55
[2019-07-27] MEDS: GABAPENTIN 400 MG CAP PO SCH (20:35)
[2019-07-27] MEDS: OLANZapine 10 MG TAB PO SCH (20:35)
--- NOTE | 2019-07-27 21:27 | CONS ---
CONSULTATION DATE OF SERVICE: 07/27/2019. REASON FOR CONSULTATION: Advice regarding headache and as well as left leg lesion requested by Psychiatry. HISTORY OF PRESENT ILLNESS: This 28-year-old gentleman with a past medical history of polysubstance abuse, history of psychosis, schizophrenia, anxiety, panic disorder, being followed by Dr. Gandhi in the outpatient setting. Apparently picked up by police and was admitted in inpatient psych unit at this time with some change in mental status. There is no history of fever, rigors or chills. No history of headache, loss of consciousness or seizures. Patient reports that the patient has some headaches and take Fioricet 1-2 a day for migraine headaches. Otherwise, the patient also had skin lesions on the left leg, which the patient is also scratching at times. There is no history of fever, rigors or chills. No history of headache, loss of consciousness, seizures, no history of chest pain, palpitations, hematochezia or melena at this time. PAST MEDICAL HISTORY: Of polysubstance abuse, schizophrenia, psychosis, anxiety. MEDICATIONS: Home medications are: 1. Atarax 10 mg q.h.s. p.r.n. 2. Zyprexa 10 mg q.h.s. 3. Motrin 800 mg p.o. b.i.d. 4. Halobetasol p.r.n. 5. Neurontin 800 mg t.i.d. 6. Fioricet 1 tab q.4 p.r.n. ALLERGIES: ABILIFY, PROLIXIN, RISPERDAL, PROLIXIN. FAMILY HISTORY: Family history unable to obtain. SOCIAL HISTORY: History of THC. No history of smoking. REVIEW OF SYSTEMS: ENT: No diminished hearing. No diminished vision. CARDIOVASCULAR is no angina or palpitations. RESPIRATION: No cough or hemoptysis. GI no nausea or vomiting. no dysuria. NERVOUS SYSTEM: No numbness or weakness. ALLERGY/IMMUNOLOGY: No asthma or hayfever. MUSCULOSKELETAL as mentioned earlier. HEMATOLOGY/ONCOLOGY: No history of anemia. ENDOCRINE: No history of diabetes. CONSTITUTIONAL: As mentioned earlier. NEUROLOGY as mentioned earlier. DERMATOLOGY mentioned earlier. RHEUMATOLOGY: Negative. PSYCHIATRY as mentioned earlier. PHYSICAL EXAMINATION: Alert and oriented x3. The pulse is 67. Blood pressure 158/90, respirations 16, temperature 97 degrees, pulse ox 98% on room air. HEENT conjunctivae normal. Oral mucosa moist. NECK is no jugular venous distention. No carotid bruit. No lymph node enlargement. CARDIOVASCULAR SYSTEM: S1, S2. No S3, no S4. RESPIRATORY: Breath sounds diminished in the bases. No rhonchi. No crackles. ABDOMEN: Soft, nontender. No mass palpable. LEGS: Left leg cellulitis present. NERVOUS SYSTEM: Higher functions as mentioned earlier. Moves all 4 limbs. No focal motor or sensory deficits.mentioned. Cranial nerves 2nd thru 12 grossly intact. Eye movements are full in all directions. No nystagmus. No visual difficulties. No facial asymmetry. Turns neck normally. Moves all 4 limbs. Power is normal. Tone is normal. No weakness. No sensory impairment. No signs of cerebellar dysfunction. Gait is normal. LYMPHATICS: No lymph nodes palpable in the neck, axillae or groin. SKIN: As mentioned earlier. JOINTS: No active deforming arthropathy. LABS: Awaited at this time. Drug screen is positive for THC and barbiturates. ASSESSMENT: 1. Hypertension, possibly labile. 2. Headaches, possibly migraine. 3. Left leg cellulitis. 4. History of polysubstance abuse and psychosis. 5. History of schizophrenia. 6. Anxiety/panic disorder. RECOMMENDATIONS AND DISCUSSION: This 28-year-old gentleman who presented with multiple medical issues, at this time I recommend to continue current medications, management and symptomatic treatment. Resume the home medications. Local antibiotic treatment. Fioricet p.r.n. for headaches as the patient is taking it as an outpatient. Otherwise, I would also recommend p.r.n. clonidine for the blood pressure. We will continue to monitor. Guarded prognosis. The patient may be asked to follow up with Dr. Gandhi closely after discharge. Thank you for letting us participate in the care of this patient. MMODL / IJN: [id number] / MTDD
[2019-07-28] MEDS: OLANZapine 10 MG TAB PO SCH (08:09)
[2019-07-28] MEDS: GABAPENTIN 400 MG CAP PO SCH ×4 (08:09→21:41)
[2019-07-28] MEDS: NEOMYCIN-BACITRACIN-POLY OINT 14 GM TUBE TOPICAL SCH ×2 (08:09→21:41)
[2019-07-28] MEDS: BUTALB/APAP/CAFF 50-325-40MG TAB PO PRN (08:10)
--- NOTE | 2019-07-28 18:16 | P.PN ---
Progress Note - Text Progress Note Date: 07/28/19 IDENTIFICATION DATA: 28-year-old male admitted through emergency department on a mixing picker tender order. INTERVAL HISTORY: Patient with chronic history of schizophrenia with established history of treatment non compliance and multiple psychiatric hospitalizations. He is uncooperative and minimizes most of his problems. He denies current symptoms of depression. He reports good sleep and appetite. He reports taking his medications as prescribed and denies any side effects. MENTAL STATUS EXAMINATION: 28 year old male, appears his stated age in poor grooming and hygiene with foul body odor. His speech and thought process are evasive. His mood is reported as good and affect constricted. He denies current auditory or visual hallucinations. He denies paranoid ideations. He is alert and oriented x4. He denies current suicidal or homicidal ideations. His insight and judgement are poor. ASSESSMENT Schizophrenia, marijuana use disorder PLAN: He signed consent to take ZYPREXA 10MG PO qhs for schizophrenia.
[2019-07-29] MEDS: LORazepam 1 MG TAB PO PRN ×2 (00:41→14:53)
[2019-07-29] MEDS: GABAPENTIN 400 MG CAP PO SCH ×4 (08:17→21:05)
[2019-07-29] MEDS: NEOMYCIN-BACITRACIN-POLY OINT 14 GM TUBE TOPICAL SCH ×2 (08:17→20:25)
[2019-07-29] MEDS: OLANZapine 10 MG TAB PO SCH (08:17)
[2019-07-29] MEDS: BUTALB/APAP/CAFF 50-325-40MG TAB PO PRN (08:18)
--- NOTE | 2019-07-29 14:34 | P.PN ---
Progress Note - Text Progress Note Date: 07/29/19 Interval History: Patient was seen in his room and was staring at the wall and had a foul odor and poor hygiene and grooming. Patient was directable and agreeable to speak with engineering technical writer in the office. Patient stated that he does not know why he is here in the hospital and continues to minimize his symptoms and his need for treatment. Patient stated that he does not need to shower at this time in the hospital and states that he's been taking his medications. Patient claims that he does not want to be switched and claims that he is not on a court order at this time. Patient states that he is sleeping well at night. Patient has poor insight and judgment. At this time patient denies any suicidal or homical ideations, intent or plan. Patient denies any auditory, visual hallucinations and denies any paranoia or delusions. Patient denies any side effects from the medications and has been compliant with meds. Mental Status Exam: General Appearance: Patient appears to be older than stated age is alert, and guarded/evasive. Foul body odor and poor hygiene grooming. Behavior: Patient is irritable at times without any agitated behavior. Speech: Patient's speech is fluent and nonpressured. Mood/Affect: Mood is improving, affect is constricted/blunted. Suicidality/Homicidality: Patient denies having any suicidal or homicidal ideation intent or plan. Perceptions: Patient denies any auditory or visual hallucinations. Though content/process: [place] and guarded/evasive. Minimizes his symptoms and his need for treatment. Memory and concentration: AOX3, grossly intact for the purposes of this session Judgment and insight: Poor Assessment Schizophrenia Cannabis use disorder Plan: -Patient continues to meet criteria for inpatient psychiatric admission for symptom stabilization and safety. Patient has signed adult voluntary form and medication consent and was placed in patient's chart. -Medications: Continue with Zyprexa 10 mg daily for psychosis. We'll continue work with patient and likely switch back onto haloperidol with long-acting injection as patient has been placed on this before and did well. -When necessary Geodon and Ativan for agitation/aggression. -NRT -needed as patient does not smoke. -SW on board for discharge planning. Patient is currently in the court process and will have a demand for hearing to be placed back on the court order.
[2019-07-30] MEDS: OLANZapine 10 MG TAB PO SCH (08:23)
[2019-07-30] MEDS: GABAPENTIN 400 MG CAP PO SCH ×4 (08:23→22:32)
[2019-07-30] MEDS: NEOMYCIN-BACITRACIN-POLY OINT 14 GM TUBE TOPICAL SCH ×2 (08:23→21:30)
[2019-07-30] MEDS: BUTALB/APAP/CAFF 50-325-40MG TAB PO PRN (08:24)
--- NOTE | 2019-07-30 11:39 | P.PN ---
Progress Note - Text Progress Note Date: 07/30/19 Interval History: Patient was seen in his room lying in bed and was agreeable to speak to technical publications writer. Patient was more directable today however appear to have a blank look on his face. He states that he has been taking his medications and denies any overnight problems. Patient states that he wants to continue taking his Zyprexa in the morning and claims that is not causing him to feel sedated. Patient states that she will be trying to go to groups today and was encouraged by technical publications writer to attend. Patient states that he is sleeping well at night. Patient stated that he had a shower yesterday. Patient has poor insight and judgment. At this time patient denies any suicidal or homical ideations, intent or plan. Patient denies any auditory, visual hallucinations and denies any paranoia or delusions. Patient denies any side effects from the medications and has been compliant with meds. Mental Status Exam: General Appearance: Patient appears to be older than stated age is alert, and guarded/evasive. Improving body odor and hygiene grooming. Behavior: Patient is less irritable at times without any agitated behavior. Speech: Patient's speech is fluent and nonpressured. Soft tone Mood/Affect: Mood is improving, affect is constricted/blunted. Suicidality/Homicidality: Patient denies having any suicidal or homicidal ideation intent or plan. Perceptions: Patient denies any auditory or visual hallucinations. Though content/process: [place] and guarded/evasive. Minimizes his symptoms and his need for treatment. Memory and concentration: AOX3, grossly intact for the purposes of this session Judgment and insight: Poor, improving mildly Assessment Schizophrenia Cannabis use disorder Plan: -Patient continues to meet criteria for inpatient psychiatric admission for symptom stabilization and safety. Patient has signed adult voluntary form and medication consent and was placed in patient's chart. -Medications: Continue with Zyprexa 10 mg daily for psychosis. We'll continue work with patient and likely switch back onto haloperidol with long-acting injection as patient has been placed on this before and did well. -When necessary Geodon and Ativan for agitation/aggression. -NRT -needed as patient does not smoke. -SW on board for discharge planning. As per social sciences department chair who spoke with mother/guardian, claims that patient was noncompliant with medications and was not taking care of himself and ran away from the home for several days. She is concerned about his well-being and wanted patient to be placed back on long- acting injection. Will await court order and demand for hearing for this.
[2019-07-31] MEDS: GABAPENTIN 400 MG CAP PO SCH ×4 (08:28→21:21)
[2019-07-31] MEDS: BUTALB/APAP/CAFF 50-325-40MG TAB PO PRN (08:28)
[2019-07-31] MEDS: OLANZapine 10 MG TAB PO SCH (08:28)
[2019-07-31] MEDS: NEOMYCIN-BACITRACIN-POLY OINT 14 GM TUBE TOPICAL SCH ×2 (08:30→21:21)
--- NOTE | 2019-07-31 12:30 | P.PN ---
Progress Note - Text Progress Note Date: 07/31/19 Interval History: Patient was seen wandering the hallways and was agreeable to speak to specification writer. Patient was somewhat directable today however continues to have a blank look on his face. Patient states that she has showered this morning however appears to have poor hygiene and grooming. Patient states that his mother is not his guardian and that he is his own guardian. Patient also claimed that he already had his demand for hearing from the courts and is not on a treatment order. He states that he has been taking his medications and became upset when specification writer spoke about the plan to have him placed on a long-acting injection due to noncompliance. Patient states that will attempt to go to groups today. Patient states that he is sleeping well at night. Patient has poor insight and judgment. At this time patient denies any suicidal or homical ideations, intent or plan. Patient denies any auditory, visual hallucinations and denies any paranoia or delusions. Patient denies any side effects from the medications and has been compliant with meds. Patient ended the interview early after speaking about long-acting injections stating that he refuses to have it. Mental Status Exam: General Appearance: Patient appears to be older than stated age is alert, and guarded/evasive. Poor body odor and hygiene grooming. Behavior: Patient is less irritable at times without any agitated behavior. Impulsive. Speech: Patient's speech is fluent and nonpressured. Monotone. Mood/Affect: Mood is improving, affect is constricted/blunted. Suicidality/Homicidality: Patient denies having any suicidal or homicidal ideation intent or plan. Perceptions: Patient denies any auditory or visual hallucinations. Though content/process: [place] and guarded/evasive. Minimizes his symptoms and his need for treatment. Memory and concentration: AOX3, grossly intact for the purposes of this session Judgment and insight: Poor, improving mildly Assessment Schizophrenia Cannabis use disorder Plan: -Patient continues to meet criteria for inpatient psychiatric admission for symptom stabilization and safety. Patient has signed adult voluntary form and medication consent and was placed in patient's chart. -Medications: Continue with Zyprexa 10 mg daily for psychosis. We'll continue work with patient and likely switch back onto haloperidol PO before switching to long-acting injection. -Data Center Engineer spoke with mother yesterday over the phone Dee at age [phone] who states that she is concerned about patient's well-being and noncompliance with medications and inability to take care of himself and understand his need for treatment. Mother states that patient has several ALLERGIES to different medications. -When necessary Geodon and Ativan for agitation/aggression. -NRT - needed as patient does not smoke. -SW on board for discharge planning. Patient will have his demand for hearing on Monday of next week, thereafter will put patient on Haldol.
[2019-08-01] MEDS: OLANZapine 10 MG TAB PO SCH (08:14)
[2019-08-01] MEDS: BUTALB/APAP/CAFF 50-325-40MG TAB PO PRN (08:15)
[2019-08-01] MEDS: NEOMYCIN-BACITRACIN-POLY OINT 14 GM TUBE TOPICAL SCH ×2 (08:15→21:56)
[2019-08-01] MEDS: GABAPENTIN 400 MG CAP PO SCH ×4 (08:15→21:56)
--- NOTE | 2019-08-01 08:24 | P.PN ---
Progress Note - Text Progress Note Date: 08/01/19 Interval History: Patient was seen wandering the hallways and was agreeable to speak to mortgage or loan underwriter in the office. Patient was somewhat directable today and was attempting to cooperate. Patient continues to have limited insight into his condition and need for treatment. He states that he is taking his medications however it does not know why he needs to take them. Patient continues to deny being noncompliant with his medications at home and was minimizing his symptoms and inability to care for himself. Patient continues to have poor hygiene and grooming. Patient states that she is going to groups daily however was not able to verbalize what he is learning in groups and states that "life is good". Patient states that he is sleeping well at night. At this time patient denies any suicidal or homical ideations, intent or plan. Patient denies any auditory, visual hallucinations and denies any paranoia or delusions. Patient denies any side effects from the medications and has been compliant with meds. Mental Status Exam: General Appearance: Patient appears to be older than stated age is alert, and guarded/evasive. Poor body odor and hygiene grooming. Behavior: Patient is less irritable at times without any agitated behavior Speech: Patient's speech is fluent and nonpressured. Monotone. Mood/Affect: Mood is improving, affect is constricted/blunted. Suicidality/Homicidality: Patient denies having any suicidal or homicidal ideation intent or plan. Perceptions: Patient denies any auditory or visual hallucinations. Though content/process: [place] and guarded/evasive. Minimizes his symptoms and his need for treatment. Memory and concentration: AOX3, grossly intact for the purposes of this session Judgment and insight: Poor Assessment Schizophrenia Cannabis use disorder Plan: -Patient continues to meet criteria for inpatient psychiatric admission for symptom stabilization and safety. Patient has signed adult voluntary form and medication consent and was placed in patient's chart. -Medications: Continue with Zyprexa 10 mg daily for psychosis. We'll continue work with patient and likely switch back onto haloperidol PO before switching to long-acting injection. At this time patient is refusing to be switched back to haloperidol therefore will need to await court order. -When necessary Geodon and Ativan for agitation/aggression. -NRT - needed as patient does not smoke. -SW on board for discharge planning. Patient will have his demand for hearing on Monday of next week, thereafter will put patient on Haldol.
[2019-08-01] MEDS: LORazepam 1 MG TAB PO PRN (16:56)
[2019-08-02] MEDS: LORazepam 1 MG TAB PO PRN ×3 (01:36→21:36)
[2019-08-02] MEDS: OLANZapine 10 MG TAB PO SCH (08:02)
[2019-08-02] MEDS: GABAPENTIN 400 MG CAP PO SCH ×4 (08:02→21:19)
[2019-08-02] MEDS: BUTALB/APAP/CAFF 50-325-40MG TAB PO PRN (08:02)
[2019-08-02] MEDS: NEOMYCIN-BACITRACIN-POLY OINT 14 GM TUBE TOPICAL SCH ×2 (09:44→20:02)
--- NOTE | 2019-08-02 10:25 | P.PN ---
Progress Note - Text Progress Note Date: 08/02/19 Interval History: Patient was seen laying down in bed and was agreeable to speak to policy writer this morning. Patient was somewhat directable today and was attempting to cooperate however appear to be disheveled with poor hygiene and grooming and foul body odor. Patient continues to have limited insight into his condition and need for treatment however did state that he's been taking his medications. Patient is concrete and gives superficial answers. He states that he took 2 showers yesterday and will plan to take 2 showers today. He also states that he talked to his mom yesterday however gives no details of their discussion. Patient continues to deny being noncompliant with his medications at home and was minimizing his symptoms and inability to care for himself. Patient states that he is going to groups daily. Patient states that he is sleeping well at night and offers no overnight complaints. At this time patient denies any suicidal or homical ideations, intent or plan. Patient denies any auditory, visual hallucinations and denies any paranoia or delusions. Patient denies any side effects from the medications and has been compliant with meds. Mental Status Exam: General Appearance: Patient appears to be older than stated age is alert, and guarded/evasive. Poor body odor and hygiene grooming. Behavior: Patient is less irritable at times without any agitated behavior Speech: Patient's speech is fluent and nonpressured. Monotone, soft tone. Mood/Affect: Mood is "okay", affect is constricted/blunted. Suicidality/Homicidality: Patient denies having any suicidal or homicidal ideation intent or plan. Perceptions: Patient denies any auditory or visual hallucinations. Though content/process: [place] and guarded/evasive. Minimizes his symptoms and his need for treatment. Memory and concentration: AOX3, grossly intact for the purposes of this session Judgment and insight: Poor Assessment Schizophrenia Cannabis use disorder Plan: -Patient continues to meet criteria for inpatient psychiatric admission for symptom stabilization and safety. Patient has signed adult voluntary form and medication consent and was placed in patient's chart. -Medications: Continue with Zyprexa 10 mg daily for psychosis. We'll continue work with patient and likely switch back onto haloperidol PO before switching to long-acting injection. At this time patient is refusing to be switched back to haloperidol therefore will need to await court order. -When necessary Janette and Debbie for agitation/aggression. -NRT - needed as patient does not smoke. -SW on board for discharge planning. Patient will have his demand for hearing on Monday morning, thereafter will put patient on Haldol as patient is not willing to take Haldol at this time.
[2019-08-03] MEDS: GABAPENTIN 400 MG CAP PO SCH ×4 (08:25→21:27)
[2019-08-03] MEDS: OLANZapine 10 MG TAB PO SCH (08:26)
[2019-08-03] MEDS: BUTALB/APAP/CAFF 50-325-40MG TAB PO PRN (08:26)
[2019-08-03] MEDS: NEOMYCIN-BACITRACIN-POLY OINT 14 GM TUBE TOPICAL SCH ×2 (08:26→21:26)
--- NOTE | 2019-08-03 10:15 | P.PN ---
Progress Note - Text Interval history: The patient is found in the hallway he reluctantly follows me to the [facility] to speak. He refuses to sit. He indicates he does not need to talk to me. He reports he has no reason to be here in the hospital he requests to be discharged. He indicates he is taking his medication the 10 mg of Zyprexa. Mental status exam: The patient is alert he has a disheveled appearance is hygiene and grooming are poor he has a foul body odor. He is dressed in layers he is wearing a bedsheet on top of his gowns he has a piece of cloth tied around his left forearm his socks are mismatched he is wearing shorts over his hospital gown. Throughout the session he is holding his sheet up to cover his mouth. His hair is long he has grown a rabago. He maintains a flat affect he has a staring eye contact. He has no spontaneous speech he provides brief answers to questions. He denies having any symptoms. He appears internally preoccupied and distracted. He demonstrates no verbal or physical aggressiveness but is mildly irritable. Insight and judgment are poor. Plan: The patient appears acutely psychotic he is poorly attending to his activities of daily living and has poor insight into his current symptoms. He is awaiting a court hearing next week. Vital signs reviewed. He requires continued psychiatric hospitalization due to his acute psychosis.
[2019-08-03] MEDS: LORazepam 1 MG TAB PO PRN ×2 (12:33→19:43)
[2019-08-04] MEDS: NEOMYCIN-BACITRACIN-POLY OINT 14 GM TUBE TOPICAL SCH ×2 (07:50→21:35)
[2019-08-04] MEDS: BUTALB/APAP/CAFF 50-325-40MG TAB PO PRN (07:51)
[2019-08-04] MEDS: GABAPENTIN 400 MG CAP PO SCH ×4 (07:51→21:04)
[2019-08-04] MEDS: OLANZapine 10 MG TAB PO SCH (07:51)
[2019-08-04] MEDS: LORazepam 1 MG TAB PO PRN ×2 (10:05→17:23)
--- NOTE | 2019-08-04 14:14 | P.PN ---
Progress Note - Text Interval history: The patient's found in the hallway he refuses to meet in an interview room but is willing to speak to me briefly in the hallway. He states that his mood is fine. He states he is taking his medications. He reports he slept last night. Staff recorded he slept 7 hours. He indicates that he is showering. Mental status exam: The patient is alert he is dressed in layers is a disheveled appearance. It appears that he has showered. Eye contact is staring in nature. He offers brief answers to questions. He has little spontaneous speech. He reports no suicidal or homicidal ideation he reports no auditory or visual hallucinations or any specific delusions. Most likely he is underreporting symptoms. He demonstrates no verbal or physical aggressiveness he demonstrates no involuntary repetitive movements. Insight and judgment impaired. Plan: The patient will continue on his current psychotropic medications we are awaiting his hearing date as he is on a demand for hearing. We will monitor him for safety and encourage appropriate participation in the milieu. Vital signs reviewed. He requires continued psychiatric hospitalization due to his symptoms of psychosis.
[2019-08-05] MEDS: OLANZapine 10 MG TAB PO SCH (08:09)
[2019-08-05] MEDS: BUTALB/APAP/CAFF 50-325-40MG TAB PO PRN ×2 (08:10→23:50)
[2019-08-05] MEDS: LORazepam 1 MG TAB PO PRN ×3 (08:10→23:51)
[2019-08-05] MEDS: NEOMYCIN-BACITRACIN-POLY OINT 14 GM TUBE TOPICAL SCH ×2 (08:11→21:14)
[2019-08-05] MEDS: GABAPENTIN 400 MG CAP PO SCH ×4 (08:11→21:14)
--- NOTE | 2019-08-05 09:26 | P.PN ---
Progress Note - Text Progress Note Date: 08/05/19 Interval History: Patient was seen wandering the hallways and was agreeable to speak to typewriter assembly and parts inspector t his morning. Patient was directable today has been noted blunted affect and appear to be disheveled with poor hygiene and grooming and body odor. Patient continues to give few details and has poverty of content in his speech. Patient is concrete and gives superficial answers and offers no new complaints. He claimed that he had a good weekend and states that he knows about court coming up on Monday and states that he is not planning on going to court. Patient continues to be compliant with his medications and taking them daily and denies any side effects from medications Patient states that he is going to groups daily however is not able to verbalize what group discussion was about.. Patient states that he is sleeping well at night and offers no overnight complaints. At this time patient denies any suicidal or homical ideations, intent or plan. Patient denies any auditory, visual hallucinations and denies any paranoia or delusions. Mental Status Exam: General Appearance: Patient appears to be older than stated age is alert, and guarded. Poor body odor and hygiene grooming. Behavior: Patient is less irritable at times without any agitated behavior Speech: Patient's speech is fluent and nonpressured. Monotone, soft tone. Mood/Affect: Mood is "fine", affect is constricted/blunted. Suicidality/Homicidality: Patient denies having any suicidal or homicidal ideation intent or plan. Perceptions: Patient denies any auditory or visual hallucinations. Though content/process: [place] and guarded. Minimizes his symptoms and his need for treatment. Memory and concentration: AOX3, grossly intact for the purposes of this session Judgment and insight: Poor/superficial Assessment Schizophrenia Cannabis use disorder Plan: -Patient continues to meet criteria for inpatient psychiatric admission for symptom stabilization and safety. Patient has signed adult voluntary form and medication consent and was placed in patient's chart. -Medications: Continue with Zyprexa 10 mg daily for psychosis. We'll continue work with patient and likely switch back onto haloperidol PO before switching to long-acting injection. At this time patient is refusing to be switched back to haloperidol therefore will need to await court order. Will inquire with [facility] if patient does have a documented history of any other ALLERGIES to antipsychotics. -When necessary Geodon and Ativan for agitation/aggression. -NRT - needed as patient does not smoke. -SW on board for discharge planning. Patient will have his demand for hearing on Monday morning, thereafter will put patient on Haldol as patient is not willing to take Haldol at this time.
[2019-08-06] MEDS: GABAPENTIN 400 MG CAP PO SCH ×4 (08:24→21:14)
[2019-08-06] MEDS: OLANZapine 10 MG TAB PO SCH (08:24)
[2019-08-06] MEDS: BUTALB/APAP/CAFF 50-325-40MG TAB PO PRN (08:25)
[2019-08-06] MEDS: NEOMYCIN-BACITRACIN-POLY OINT 14 GM TUBE TOPICAL SCH ×2 (09:47→21:14)
[2019-08-06] MEDS: LORazepam 1 MG TAB PO PRN ×2 (14:05→19:11)
--- NOTE | 2019-08-06 14:15 | P.PN ---
Progress Note - Text Progress Note Date: 08/06/19 Interval History: Patient was seen wandering the hallways and was agreeable to speak to card writer hand federica bellamy. Patient was directable however continues to appear to be disheveled with poor hygiene and grooming. Patient continues to be concrete and give few details and is guarded about his condition. He continues to offer no new complaints. Patient was noticed to have one of his socks wrapped around his forearm and when asked about a patient states that "it's just my sock, I cleaned it". He claimed that he had a good night last night and described no complaints with sleep. He states that he knows tomorrow is his court date and does not want to go to court. Patient continues to be compliant with his medications and taking them daily and denies any side effects from medications. Patient states that he is going to groups daily. Patient states that he is sleeping well at night and offers no overnight complaints. At this time patient denies any suicidal or homical ideations, intent or plan. Patient denies any auditory, visual hallucinations and denies any paranoia or delusions. Mental Status Exam: General Appearance: Patient appears to be older than stated age is alert, and guarded. Poor body odor and hygiene grooming. Behavior: Patient is less irritable at times without any agitated behavior Speech: Patient's speech is fluent and nonpressured. Monotone, soft tone. Mood/Affect: Mood is "fine", affect is constricted/blunted. Suicidality/Homicidality: Patient denies having any suicidal or homicidal ideation intent or plan. Perceptions: Patient denies any auditory or visual hallucinations. Though content/process: [place] and guarded. Minimizes his symptoms and his need for treatment. Memory and concentration: AOX3, grossly intact for the purposes of this session Judgment and insight: Poor/superficial Assessment Schizophrenia Cannabis use disorder Plan: -Patient continues to meet criteria for inpatient psychiatric admission for symptom stabilization and safety. Patient has signed adult voluntary form and medication consent and was placed in patient's chart. -Medications: Continue with Zyprexa 10 mg daily for psychosis. We'll continue work with patient and likely switch back onto haloperidol PO before switching to long-acting injection. At this time patient is refusing to be switched back to haloperidol therefore will need to await court order. -Parking Enforcement Specialist spoke with [facility] doctor Saleem over the phone who stated that patient has done well on Haldol D in the past and was up to 200 mg Q monthly. He also stated that patient has a history of asking for controlled medications and was suspected to be not taking the medications and possibly diverting it on the s treets. -When necessary Geodon and Ativan for agitation/aggression. -NRT - needed as patient does not smoke. -SW on board for discharge planning. Patient will have his demand for hearing tomorrow morning. Thereafter will put patient on Haldol as patient is not willing to take Haldol at this time.
[2019-08-07] MEDS: GABAPENTIN 400 MG CAP PO SCH ×4 (07:47→21:19)
[2019-08-07] MEDS: NEOMYCIN-BACITRACIN-POLY OINT 14 GM TUBE TOPICAL SCH ×2 (07:48→20:59)
[2019-08-07] MEDS: OLANZapine 10 MG TAB PO SCH (07:48)
[2019-08-07] MEDS: LORazepam 1 MG TAB PO PRN ×3 (07:49→21:20)
[2019-08-07] MEDS: BUTALB/APAP/CAFF 50-325-40MG TAB PO PRN (07:49)
--- NOTE | 2019-08-07 10:16 | P.PN ---
Progress Note - Text Progress Note Date: 08/07/19 Interval History: Patient was seen in his room and was agreeable to speak to proposal writer today. Patient was somewhat directable this morning however continues to appear to be disheveled in appearance and have a strong body odor. Patient had poverty of speech and content during the conversation and offered no new complaints. He states that he slept well last night and has fair energy and appetite. Patient again had a sock wrapped around his forearm and his shirt around his neck and couldnt explain why he had this that way. He states that he was offered to go to court this morning however declined and wanted to stay in the hospital. He states that his mother is his tanvi and does not know why he would need to go to court today. Patient continues to state that he is taking his meds daily and denies any side effects from medications. Patient denies going to groups and states that he feels he does not learn anything from them. At this time patient denies any suicidal or homical ideations, intent or plan. Patient denies any auditory, visual hallucinations and denies any paranoia or delusions. Mental Status Exam: General Appearance: Patient appears to be older than stated age is alert, and guarded. Poor body odor and hygiene grooming. Behavior: Patient is less irritable at times without any agitated behavior Speech: Patient's speech is fluent and nonpressured. Monotone, soft tone. Mood/Affect: Mood is "ok", affect is constricted/blunted. Suicidality/Homicidality: Patient denies having any suicidal or homicidal ideation intent or plan. Perceptions: Patient denies any auditory or visual hallucinations. Though content/process: [place] and guarded. Minimizes his symptoms and his need for treatment. Memory and concentration: AOX3, grossly intact for the purposes of this session Judgment and insight: Poor/superficial Assessment Schizophrenia Cannabis use disorder Plan: -Patient continues to meet criteria for inpatient psychiatric admission for symptom stabilization and safety. Patient has signed adult voluntary form and medication consent and was placed in patient's chart. -Medications: Continue with Zyprexa 10 mg daily for psychosis. Patient is continuing to refuse to be switched back to haloperidol therefore will need to await court order. -Hand Embroiderer spoke yesterday with [facility] Dr. Monge over the phone who stated that patient has done well on Haldol D in the past and was up to 200 mg Q monthly. He also stated that patient has a history of asking for controlled medications and was suspected to be not taking the medications and possibly diverting it on the streets. -When necessary Geodon and Ativan for agitation/aggression. -NRT - needed as patient does not smoke. -SW on board for discharge planning. Patient opted not to go to court today and will continue to await court order to proceed with treatment. Patient will need to be placed back on Haldol and switched onto Haldol-Dec.
[2019-08-07 15:09] VITALS: BMI 24.0
[2019-08-08] MEDS: GABAPENTIN 400 MG CAP PO SCH ×4 (08:06→21:06)
[2019-08-08] MEDS: LORazepam 1 MG TAB PO PRN ×3 (08:07→21:54)
[2019-08-08] MEDS: BUTALB/APAP/CAFF 50-325-40MG TAB PO PRN (08:07)
[2019-08-08] MEDS: OLANZapine 10 MG TAB PO SCH (08:07)
[2019-08-08] MEDS: NEOMYCIN-BACITRACIN-POLY OINT 14 GM TUBE TOPICAL SCH ×2 (08:07→21:04)
--- NOTE | 2019-08-08 12:00 | P.PN ---
Progress Note - Text Progress Note Date: 08/08/19 Interval History: Patient was seen wandering the hallways and was agreeable to speak to web content writer federica bellamy. Patient was continues to appear to be disheveled in appearance and have a strong body odor. Patient was less cooperative today and became defensive and irritable when we spoke about court and court order which came active yesterday. Patient claims that he does not want to be changed on any medications and will not be taking Haldol. Patient continues to have poor insight and judgment at th is time. Patient had poverty of speech and content during the conversation and offered no new complaints. He states that he slept well last night and has ok energy and appetite. Patient continues to state that his mother is not his guardian and that she does not get treatment with Dr. Monge at [facility]. Patient continues to state that he is taking his meds daily and denies any side effects from medications. Patient has not been going to any groups not participating. At this time patient denies any suicidal or homical ideations, intent or plan. Patient denies any auditory, visual hallucinations and denies any paranoia or delusions. Mental Status Exam: General Appearance: Patient appears to be older than stated age is alert, and guarded. Poor body odor and hygiene grooming. Behavior: Patient is less irritable at times without any agitated behavior Speech: Patient's speech is fluent and nonpressured. Irritable tone Mood/Affect: Mood is "fine", affect is constricted/blunted. Suicidality/Homicidality: Patient denies having any suicidal or homicidal ideation intent or plan. Perceptions: Patient denies any auditory or visual hallucinations. Though content/process: [place] and guarded. Minimizes his symptoms and his need for treatment. Memory and concentration: AOX3, grossly intact for the purposes of this session Judgment and insight: Poor/superficial Assessment Schizophrenia Cannabis use disorder Plan: -Patient continues to meet criteria for inpatient psychiatric admission for symptom stabilization and safety. Patient has signed adult voluntary form and medication consent and was placed in patient's chart. -Medications: Will discontinue Zyprexa at this time patient will be switched on to haloperidol 3 mg twice a day. Patient is to be offered by mouth liquid Haldol and if patient refuses then he is to receive IM Haldol as patient is currently court ordered. -According to [facility] Dr. Monge patient has done well on Haldol D in the past and was up to 200 mg Q monthly. He also stated that patient has a history of asking for controlled medications and was suspected to be not taking the medications and possibly diverting it on the streets. -When necessary Geodon and Ativan for agitation/aggression. -NRT - needed as patient does not smoke. -SW on board for discharge planning. Patient received his court order DIALLO to on 08/07/2019. We'll transition patient to Haldol decanoate long-acting injection prior to discharge.
[2019-08-08] MEDS ORDERED: HALOPERIDOL LACTATE 5 MG/ML 1 ML VIAL IM PRN (21:00)
[2019-08-08] MEDS: HALOPERIDOL ORAL SOLN 10 MG/5 ML CUP PO SCH (21:07)
[2019-08-09] MEDS: BUTALB/APAP/CAFF 50-325-40MG TAB PO PRN (07:39)
[2019-08-09] MEDS: LORazepam 1 MG TAB PO PRN ×3 (07:39→21:10)
[2019-08-09] MEDS: HALOPERIDOL ORAL SOLN 10 MG/5 ML CUP PO SCH ×2 (07:39→21:09)
[2019-08-09] MEDS: GABAPENTIN 400 MG CAP PO SCH ×4 (07:40→21:09)
[2019-08-09] MEDS: NEOMYCIN-BACITRACIN-POLY OINT 14 GM TUBE TOPICAL SCH ×2 (07:40→22:01)
[2019-08-09] MEDS ORDERED: HALOPERIDOL LACTATE 5 MG/ML 1 ML VIAL IM PRN (09:26)
--- NOTE | 2019-08-09 09:32 | P.PN ---
Progress Note - Text Progress Note Date: 08/09/19 Interval History: Patient was seen laying down on his bed and was agreeable to speak to film writer federica bellamy. Patient appeared to be disheveled this morning and continues to have a strong foul body odor. Patient was irritable with the film writer this morning and states that he wants his Zyprexa dose increased. When patient was explained that Zyprexa was switched to haloperidol patient got even more hostile and claims that he was not going to take the medication and states that he has papers stating that he is ALLERGIC. When patient was told that he did well on this medication in the past patient continued to be argumentative and states that he does not want to be on Haldol. Patient continues to have poor insight and judgment at this time and is minimizing his symptoms and his need for treatment. Patient had poverty of speech and content during the conversation. He states that he slept well last night and has ok energy and appetite. Patient was demanding discharge film writer and states that he does not need to be in the hospital. Patient denies any side effects from medications. Patient has not been going to any groups not participating. At this time patient denies any suicidal or homical ideations, intent or plan. Patient denies any auditory, visual hallucinations and denies any paranoia or delusions. Mental Status Exam: General Appearance: Patient appears to be older than stated age is alert, and guarded. Poor body odor and hygiene grooming. Behavior: Patient is irritable at times without any agitated behavior and is argumentative. Speech: Patient's speech is fluent and nonpressured. Irritable tone and is argumentative. Mood/Affect: Mood is "angry", affect is constricted/blunted. Suicidality/Homicidality: Patient denies having any suicidal or homicidal ideation intent or plan. Perceptions: Patient denies any auditory or visual hallucinations. Though content/process: [place] and guarded. Minimizes his symptoms and his need for treatment. Memory and concentration: AOX3, grossly intact for the purposes of this session Judgment and insight: Poor/superficial Assessment Schizophrenia Cannabis use disorder Plan: -Patient continues to meet criteria for inpatient psychiatric admission for symptom stabilization and safety. Patient has signed adult voluntary form and medication consent and was placed in patient's chart. -Medications: Will increase haloperidol 5 mg twice a day. Patient is to be offered by mouth liquid Haldol and if patient refuses then he is to receive IM Haldol as patient is currently court ordered. -According to [facility] Dr. Monge patient has done well on Haldol D in the past and was up to 200 mg Q monthly. He also stated that patient has a history of asking for controlled medications and was suspected to be not taking the medications and possibly diverting it on the streets. -When necessary Geodon and Ativan for agitation/aggression. -NRT - needed as patient does not smoke. -SW on board for discharge planning. Patient received his court order DIALLO to on 08/07/2019. We'll transition patient to Haldol decanoate long-acting injection prior to discharge.
[2019-08-09] MEDS: ACETAMINOPHEN TAB 325 MG TAB PO PRN (18:01)
[2019-08-10] MEDS: GABAPENTIN 400 MG CAP PO SCH ×4 (08:45→20:28)
[2019-08-10] MEDS: HALOPERIDOL ORAL SOLN 10 MG/5 ML CUP PO SCH ×2 (08:45→20:28)
[2019-08-10] MEDS: NEOMYCIN-BACITRACIN-POLY OINT 14 GM TUBE TOPICAL SCH ×2 (08:46→20:56)
[2019-08-10] MEDS: LORazepam 1 MG TAB PO PRN ×2 (08:47→17:18)
[2019-08-10] MEDS: BUTALB/APAP/CAFF 50-325-40MG TAB PO PRN (08:47)
--- NOTE | 2019-08-10 09:50 | P.PN ---
Progress Note - Text Progress Note Date: 08/10/19 Interval History: Patient was seen laying down on his bed and was agreeable to speak to typewriter operator automatic federica bellamy. Patient continues to be brief in his conversation with typewriter operator automatic and is irritable/hostile. Patient denies any overnight complains and states that he is doing fine. Patient claims that he would like to have an increase in his Zyprexa instead of taking Haldol. Patient continues to have poor insight and judgment at this time and is minimizing his symptoms and his need for treatment. He states that he slept well last night and has ok energy and appetite. Patient denies any side effects from medications at this time. Patient has not been going to any groups not participating. At this time patient denies any suicidal or homical ideations, intent or plan. Patient denies any auditory, visual hallucinations and denies any paranoia or delusions. Mental Status Exam: General Appearance: Patient appears to be older than stated age is alert, and guarded. Poor body odor and hygiene grooming. Behavior: Patient is irritable at times without any agitated behavior and is argumentative. Speech: Patient's speech is fluent and nonpressured. Irritable tone Mood/Affect: Mood is "fine", affect is constricted/blunted. Suicidality/Homicidality: Patient denies having any suicidal or homicidal idea tion intent or plan. Perceptions: Patient denies any auditory or visual hallucinations. Though content/process: [place] and guarded. Minimizes his symptoms and his need for treatment. Memory and concentration: AOX3, grossly intact for the purposes of this session Judgment and insight: Poor/superficial Assessment Schizophrenia Cannabis use disorder Plan: -Patient continues to meet criteria for inpatient psychiatric admission for symptom stabilization and safety. Patient has signed adult voluntary form and medication consent and was placed in patient's chart. -Medications: Will continue with haloperidol 5 mg twice a day. Patient is to be offered by mouth liquid Haldol and if patient refuses then he is to receive IM Haldol as patient is currently court ordered. Will ask nursing staff to check patient's mouth to ensure patient has been taking medication. -According to [facility] Dr. Monge patient has done well on Haldol D in the past and was up to 200 mg Q monthly. He also stated that patient has a history of asking for controlled medications and was suspected to be not taking the medications and possibly diverting it on the streets. -When necessary Geodon and Ativan for agitation/aggression. -NRT - needed as patient does not smoke. -SW on board for discharge planning. Patient received his court order DIALLO to on 08/07/2019. We'll transition patient to Haldol decanoate long-acting injection prior to discharge.
[2019-08-10] MEDS: ACETAMINOPHEN TAB 325 MG TAB PO PRN (20:31)
[2019-08-11] MEDS: GABAPENTIN 400 MG CAP PO SCH ×4 (08:05→20:49)
[2019-08-11] MEDS: HALOPERIDOL ORAL SOLN 10 MG/5 ML CUP PO SCH ×2 (08:06→19:51)
[2019-08-11] MEDS: BUTALB/APAP/CAFF 50-325-40MG TAB PO PRN (08:08)
[2019-08-11] MEDS: NEOMYCIN-BACITRACIN-POLY OINT 14 GM TUBE TOPICAL SCH ×2 (09:16→20:06)
[2019-08-11] MEDS: LORazepam 1 MG TAB PO PRN ×2 (09:17→19:54)
--- NOTE | 2019-08-11 10:18 | P.PN ---
Progress Note - Text Progress Note Date: 08/11/19 Interval History: Patient was seen wandering the hallways and was agreeable to speak to bid writer federica bellamy. Patient continues to be preoccupied with not taking Haldol. Patient continues to state that [facility] has papers that says that he cannot take this medicine. Patient claims that Haldol is making his "toes curl" however does not demonstrate any tremors or rigidity or any clear signs of EPS. Patient claims that he would like to have an increase in his Zyprexa instead of taking Haldol. Patient continues to have poor insight and judgment at this time and was asking to be discharged. He states that he slept well last night and has ok energy and appetite. Patient denies any side effects from medications at this time. Patient has not been going to any groups not participating. At this time patient denies any suicidal or homical ideations, intent or plan. Patient denies any auditory, visual hallucinations and denies any paranoia or delusions. Mental Status Exam: General Appearance: Patient appears to be older than stated age is alert, and guarded. Poor body odor and hygiene grooming. Behavior: Patient is irritable at times without any agitated behavior and is argumentative. Speech: Patient's speech is fluent and nonpressured. Mood/Affect: Mood is "ok", affect is constricted/blunted. Suicidality/Homicidality: Patient denies having any suicidal or homicidal ideation intent or plan. Perceptions: Patient denies any auditory or visual hallucinations. Though content/process: [place] and guarded. Minimizes his symptoms and his need for treatment. Preoccupied with not taking Haldol. Memory and concentration: AOX3, grossly intact for the purposes of this session Judgment and insight: Poor/superficial, improving mildly. Assessment Schizophrenia Cannabis use disorder Plan: -Patient continues to meet criteria for inpatient psychiatric admission for symptom stabilization and safety. Patient has signed adult voluntary form and medication consent and was placed in patient's chart. -Medications: Will continue with haloperidol 5 mg twice a day. Patient is to be offered by mouth liquid Haldol and if patient refuses then he is to receive IM Haldol as patient is currently court ordered. Will ask nursing staff to check patient's mouth to ensure patient has been taking medication. -Will add Cogentin 1 mg twice a day for EPS prophylaxis. -According to [facility] Dr. Monge patient has done well on Haldol D in the past and was up to 200 mg Q monthly and denies patient having an ALLERGY to haloperidol. He also stated that patient has a history of asking for controlled medications and was suspected to be not taking the medications and possibly diverting it on the streets. -When necessary Geodon and Ativan for agitation/aggression. -NRT - needed as patient does not smoke. -SW on board for discharge planning. Patient received his court order DIALLO to on 08/07/2019. We'll transition patient to Haldol decanoate long-acting injection prior to discharge.
[2019-08-11] MEDS: BENZTROPINE MESYLATE 1 MG TAB PO SCH ×2 (10:39→19:51)
[2019-08-12] MEDS: BENZTROPINE MESYLATE 1 MG TAB PO SCH ×2 (08:04→21:11)
[2019-08-12] MEDS: BUTALB/APAP/CAFF 50-325-40MG TAB PO PRN (08:04)
[2019-08-12] MEDS: GABAPENTIN 400 MG CAP PO SCH ×4 (08:04→21:11)
[2019-08-12] MEDS: NEOMYCIN-BACITRACIN-POLY OINT 14 GM TUBE TOPICAL SCH ×2 (08:05→21:09)
[2019-08-12] MEDS: HALOPERIDOL ORAL SOLN 10 MG/5 ML CUP PO SCH ×2 (08:05→21:12)
[2019-08-12] MEDS: LORazepam 1 MG TAB PO PRN ×2 (09:23→17:24)
--- NOTE | 2019-08-12 11:48 | P.PN ---
Progress Note - Text Progress Note Date: 08/12/19 Interval History: Patient was seen wandering the hallways and was persistent and wanting to talk with the health science writer in the office. Patient continues to be preoccupied his medications and wants to be off of Haldol. Patient states that he doesn't understand why he is not on Zyprexa any longer and was requesting to be placed back on it. Patient was stating that yesterday he had an incident where his "toes curled" and she said that it was hard for him to walk at that time. Patient claims he feels "weird" when he is on Haldol however patient appeared to be much more clear and goal oriented and organized in his thought process at this time. Patient continues to have disheveled appearance and is ungroomed unshaven. Patient continues to have poor insight and judgment at this time. He states that he slept well last night and has ok energy and appetite. Patient claims that he is attempting to go to groups at this time. At this time patient denies any suicidal or homical ideations, intent or plan. Patient denies any auditory, visual hallucinations and denies any paranoia or delusions. Mental Status Exam: General Appearance: Patient appears to be older than stated age is alert, and guarded. Disheveled appearance. Unshaven long hair and rabago. Behavior: Patient is argumentative and perseverates on his medications. Speech: Patient's speech is fluent and nonpressured. Mood/Affect: Mood is "ok", affect is constricted/blunted. Suicidality/Homicidality: Patient denies having any suicidal or homicidal ideation intent or plan. Perceptions: Patient denies any auditory or visual hallucinations. Though content/process: [place] however is more goal oriented today. Preoccupied with not taking Haldol. Memory and concentration: AOX3, grossly intact for the purposes of this session Judgment and insight: Poor/superficial, improving mildly. Assessment Schizophrenia Cannabis use disorder Plan: -Patient continues to meet criteria for inpatient psychiatric admission for symptom stabilization and safety. Patient has signed adult voluntary form and medication consent and was placed in patient's chart. -Medications: Will continue with haloperidol 5 mg twice a day. Patient is to be offered by mouth liquid Haldol and if patient refuses then he is to receive IM Haldol as patient is currently court ordered. Will ask nursing staff to check patient's mouth to ensure patient has been taking medication. Patient's mom presented a brief letter by a a provider Suyapa MARTINEZ at [facility] who states that "I believe that the cause of the rash was likely due to to being on Haldol Decannoate" referring to a possible ALLERGY. Attempted to call the clinic where this letter came from to clarify their findings if indeed this was actually a ALLERGY. At this time patient does not have any rashes however points to a bruise on his leg and states that it is a rash. We will also attempt to call pharmacy to investigate further. We'll await call back to make decision of medication choice. -Will continue with Cogentin 1 mg twice a day for EPS prophylaxis. -According to [facility] Dr. Monge patient has done well on Haldol-D in the past and was up to 200 mg Q monthly and denies patient having an ALLERGY to haloperidol. He also stated that patient has a history of asking for controlled medications and was suspected to be not taking the medications and possibly diverting it on the streets. -When necessary Geodon and Ativan for agitation/aggression. -NRT - needed as patient does not smoke. -SW on board for discharge planning. Patient received his court order DIALLO to on 08/07/2019.
[2019-08-12] MEDS: diphenhydrAMINE 25 MG CAP PO PRN (19:25)
[2019-08-12] MEDS: ACETAMINOPHEN TAB 325 MG TAB PO PRN (19:25)
[2019-08-12] MEDS: OLANZapine 2.5 MG TAB PO SCH (21:11)
[2019-08-13] MEDS: BENZTROPINE MESYLATE 1 MG TAB PO SCH ×2 (08:22→21:30)
[2019-08-13] MEDS: HALOPERIDOL ORAL SOLN 10 MG/5 ML CUP PO SCH ×2 (08:22→21:31)
[2019-08-13] MEDS: GABAPENTIN 400 MG CAP PO SCH ×4 (08:22→22:31)
[2019-08-13] MEDS: BUTALB/APAP/CAFF 50-325-40MG TAB PO PRN (08:23)
[2019-08-13] MEDS: LORazepam 1 MG TAB PO PRN ×3 (08:23→22:32)
[2019-08-13] MEDS: NEOMYCIN-BACITRACIN-POLY OINT 14 GM TUBE TOPICAL SCH ×2 (08:24→21:35)
[2019-08-13] MEDS ORDERED: HALOPERIDOL DECANOATE 100 MG/ML 1 ML VIAL IM STA (11:19)
--- NOTE | 2019-08-13 11:35 | P.PN ---
Progress Note - Text Progress Note Date: 08/13/19 Interval History: Patient was seen wandering the hallways and was agreeable to speak with keno writer in the office. Patient offered no overnight complaints and states that he is doing well overall. He claimed that he was able to sleep better on Zyprexa and claims that he slept to the night. This time patient denies any side effects from the Haldol however remains preoccupied with not being on a long-acting injection and switching from Haldol to Zyprexa. Patient claims that he has been attempting to go to groups and has been showering and has fair energy at this time. She denies any tremors or any muscle stiffness. Patient continues to have disheveled appearance and is ungroomed unshaven and was asked if he would like to have his hair cut or rabago trimmed and patient declined. Patient continues to have poor insight and judgment at this time. He states that he slept well last night and has ok energy and appetite. At this time patient denies any suicidal or homical ideations, intent or plan. Patient denies any auditory, visual hallucinations and denies any paranoia or delusions. Mental Status Exam: General Appearance: Patient appears to be older than stated age is alert, and guarded. Disheveled appearance. Long hair and rabago. Behavior: Patient is less argumentative and perseverates less on his medications. Speech: Patient's speech is fluent and nonpressured. Mood/Affect: Mood is "fine", affect is constricted/blunted. Suicidality/Homicidality: Patient denies having any suicidal or homicidal ideation intent or plan. Perceptions: Patient denies any auditory or visual hallucinations. Though content/process: [place] however is more goal oriented today. Preoccupied with not taking Haldol and only on Zyprexa. Memory and concentration: AOX3, grossly intact for the purposes of this session Judgment and insight: Poor/superficial, improving mildly. Assessment Schizophrenia Cannabis use disorder Plan: -Patient continues to meet criteria for inpatient psychiatric admission for symptom stabilization and safety. Patient has signed adult voluntary form and medication consent and was placed in patient's chart. -Medications: Will continue with haloperidol 5 mg twice a day. Patient is to be offered by mouth liquid Haldol and if patient refuses then he is to receive IM Haldol as patient is currently court ordered. Will ask nursing staff to check patient's mouth to ensure patient has been taking medication. Ordered Haldol- Decannoate 100 mg IM today. -Skiver Hand received a letter from dermatology office stating that it was unclear of the correlation of any rash with the medication and that this should not prevent patient from continuing on with his haloperidol Decanoate injection. Letter will be given to department secretary for scanning into patient's chart. -Will continue with Cogentin 1 mg twice a day for EPS prophylaxis. -When necessary Geodon and Ativan for agitation/aggression. -NRT - needed as patient does not smoke. -SW on board for discharge planning. Patient received his court order DIALLO to on 08/07/2019. Skiver Hand spoke with patient's mother/guardian over the phone this morning who agrees that patient should be on long-acting injection and to continue monitoring for any signs of ALLERGY or rash.
[2019-08-13] MEDS: diphenhydrAMINE 25 MG CAP PO PRN (19:09)
[2019-08-13] MEDS: OLANZapine 2.5 MG TAB PO SCH (21:31)
[2019-08-14] MEDS: NEOMYCIN-BACITRACIN-POLY OINT 14 GM TUBE TOPICAL SCH ×2 (08:22→20:57)
[2019-08-14] MEDS: GABAPENTIN 400 MG CAP PO SCH ×4 (08:23→20:49)
[2019-08-14] MEDS: HALOPERIDOL ORAL SOLN 10 MG/5 ML CUP PO SCH ×2 (08:23→20:49)
[2019-08-14] MEDS: BENZTROPINE MESYLATE 1 MG TAB PO SCH ×2 (08:23→20:48)
[2019-08-14] MEDS: BUTALB/APAP/CAFF 50-325-40MG TAB PO PRN (08:25)
[2019-08-14] MEDS: LORazepam 1 MG TAB PO PRN ×3 (08:25→20:50)
--- NOTE | 2019-08-14 11:49 | P.PN ---
Progress Note - Text Progress Note Date: 08/14/19 Interval History: Patient was seen wandering the hallways and was persistent in speaking with wr iter in the office. Patient offered no overnight complaints initially and stated that he is doing well overall and was demanding discharge. Patient continues to be preoccupied with his Zyprexa however is more re-directable today. Patient states that he believes that the Haldol is causing a rash on his palm and showed director underwriter sales mild isolated scratch ellison on his right palm which has been present for days now. Patient was explained that this will be monitored and to take Benadryl for itching if this does continue. He claimed that he was able to sleep better on Zyprexa and requested to have the dose increased to 5 mg. Patient expressed to director underwriter sales that he feels that he is "overmedicated" and claims that he shouldn't be on an injection and liquid medication and threatened to jesus director underwriter sales several times during the conversation. Patient continues to demonstrate poor insight into his condition and poor judgment. Patient claims that he has been attempting to go to groups and has been showering and has fair energy at this time. Patient continues to appear disheveled. She denies any tremors or any muscle stiffness. At this time patient denies any suicidal or homical ideations, intent or plan. Patient denies any auditory, visual hallucinations and denies any paranoia or delusions. Mental Status Exam: General Appearance: Patient appears to be older than stated age is alert, and guarded. Disheveled appearance. Long hair and rabago. Behavior: Patient is less argumentative and perseverates less on his medications. Speech: Patient's speech is fluent and nonpressured. Mood/Affect: Mood is "ok", affect is constricted/blunted. Suicidality/Homicidality: Patient denies having any suicidal or homicidal ideation intent or plan. Perceptions: Patient denies any auditory or visual hallucinations. Though content/process: [place] however is more goal oriented today. Preoccupied with not taking Haldol and only on Zyprexa and being "overmedicated". Memory and concentration: AOX3, grossly intact for the purposes of this session Judgment and insight: Poor/superficial, improving mildly. Assessment Schizophrenia Cannabis use disorder Plan: -Patient continues to meet criteria for inpatient psychiatric admission for symptom stabilization and safety. Patient has signed adult voluntary form and medication consent and was placed in patient's chart. -Medications: Will decrease haloperidol liquid to 3 mg twice a day. Patient is to be offered by mouth liquid Haldol and if patient refuses then he is to receive IM Haldol as patient is currently court ordered. Will ask nursing staff to check patient's mouth to ensure patient has been taking medication. Patient received Haldol-D 100 mg IM on 08/13/2019 and will be given an extra 50 mg tomorrow likely. Will increase Zyprexa to 5 mg daily at bedtime for psychosis/insomnia. Will continue with Cogentin 1 mg twice a day for EPS prophylaxis and continue to monitor. -Park Maintainer received a letter from dermatology office stating that it was unclear of the correlation of any rash with the medication and that this should not prevent patient from continuing on with his haloperidol Decanoate injection. Patient is placed on Benadryl 25 mg by mouth when necessary for rash/itching. Letter was scanned and uploaded to patient's medical chart. -When necessary Geodon and Ativan for agitation/aggression. -NRT - needed as patient does not smoke. -SW on board for discharge planning. Patient received his court order DIALLO to on 08/07/2019. Park Maintainer spoke with patient's mother/guardian over the phone this morning who agrees that patient should be on long-acting injection and to continue monitoring for any signs of ALLERGY or rash. Likely discharge in 2-3 days.
[2019-08-14] MEDS: diphenhydrAMINE 25 MG CAP PO PRN (13:18)
[2019-08-14] MEDS: OLANZapine 5 MG TAB PO SCH (20:49)
[2019-08-14] MEDS ORDERED: HALOPERIDOL LACTATE 5 MG/ML 1 ML VIAL IM SCH (21:00)
[2019-08-14] MEDS ORDERED: HALOPERIDOL LACTATE 5 MG/ML 1 ML VIAL IM PRN (21:40)
[2019-08-15] MEDS: HALOPERIDOL ORAL SOLN 10 MG/5 ML CUP PO SCH ×2 (08:58→21:52)
[2019-08-15] MEDS: GABAPENTIN 400 MG CAP PO SCH ×4 (09:23→21:54)
[2019-08-15] MEDS: BENZTROPINE MESYLATE 1 MG TAB PO SCH ×2 (09:23→21:52)
[2019-08-15] MEDS: BUTALB/APAP/CAFF 50-325-40MG TAB PO PRN (09:23)
[2019-08-15] MEDS: NEOMYCIN-BACITRACIN-POLY OINT 14 GM TUBE TOPICAL SCH ×2 (09:24→21:57)
--- NOTE | 2019-08-15 11:28 | P.PN ---
Progress Note - Text Progress Note Date: 08/15/19 Interval History: Patient was seen sitting on the side of his bed and was agreeable to speak with display card writer in the office. Patient continues to be focused on discharge and offers no overnight complaints. He states that he is doing well at this time and is not complaining of any side effects from medications. Patient was looking at his hand at times during the interview and scratching his right palm in the Center and when asked if display card writer could take a look at his palm patient stated that "there is nothing there" and pulled his hand away. Patient states that he is sleeping well on the current dose of Zyprexa and wants to continue this current dose. He states that he is trying to go to some groups and finding them helpful. He states that he talked to his mother and claims that his mother "wants me home". Patient was asked about showering and grooming and patient declined at this time stating that "I really showered". Patient's showed improved irritability and frustration tolerance today. He claims his mood is "fine" and denies any depression or anxiety at this time. Patient continues to demonstrate poor insight into his condition and poor judgment which appears to be chronic. Patient continues to appear disheveled. She denies and is observed to not have any tremors or any muscle stiffness. At this time patient denies any suicidal or homical ideations, intent or plan. Patient denies any auditory, visual hallucinations and denies any paranoia or delusions. Mental Status Exam: General Appearance: Patient appears to be older than stated age is alert, and guarded. Disheveled appearance. Long hair and rabago. Behavior: Patient is less argumentative/irritable today and perseverates less on his medications. Focused on discharge. Speech: Patient's speech is fluent and nonpressured. Mood/Affect: Mood is "fine", affect is constricted/blunted. Suicidality/Homicidality: Patient denies having any suicidal or homicidal ideation intent or plan. Perceptions: Patient denies any auditory or visual hallucinations. Though content/process: [place] however is more goal oriented today. Focused on discharge. Memory and concentration: AOX3, grossly intact for the purposes of this session Judgment and insight: Chronically Poor/superficial, improving mildly. Assessment Schizophrenia Cannabis use disorder Plan: -Patient continues to meet criteria for inpatient psychiatric admission for symptom stabilization and safety. Patient has signed adult voluntary form and medication consent and was placed in patient's chart. -Medications: Will continue with haloperidol liquid to 3 mg twice a day with plans to continue titrating down. Patient is to be offered by mouth liquid Haldol and if patient refuses then he is to receive IM Haldol as patient is currently court ordered. Will ask nursing staff to check patient's mouth to ensure patient has been taking medication. Patient received Haldol-D 100 mg IM on 08/13/2019 and will be given an extra 50 mg scheduled for tonight. Will continue with Zyprexa 5 mg daily at bedtime for psychosis/insomnia. Will continue with Cogentin 1 mg twice a day for EPS prophylaxis and continue to monitor. -Merit System Director received a letter from dermatology office stating that it was unclear of the correlation of any rash with the medication and that this should not prevent patient from continuing on with his haloperidol Decanoate injection. Patient is placed on Benadryl 25 mg by mouth when necessary for rash/itching. Letter was scanned and uploaded to patient's medical chart. -When necessary Geodon and Ativan for agitation/aggression. -NRT - needed as patient does not smoke. -SW on board for discharge planning. Patient received his court order DIALLO to on 08/07/2019. Merit System Director will attempt to speak with mother today over the phone as patient is clinically stabilizing back to his baseline and will likely be discharged within the next few days.
[2019-08-15] MEDS: LORazepam 1 MG TAB PO PRN (21:52)
[2019-08-15] MEDS: OLANZapine 5 MG TAB PO SCH (21:52)
[2019-08-16] MEDS: BUTALB/APAP/CAFF 50-325-40MG TAB PO PRN (01:44)
[2019-08-16] MEDS: diphenhydrAMINE 25 MG CAP PO PRN (01:45)
[2019-08-16 02:11] VITALS: TEMP 97.6
[2019-08-16] MEDS: GABAPENTIN 400 MG CAP PO SCH ×4 (08:08→21:54)
[2019-08-16] MEDS: BENZTROPINE MESYLATE 1 MG TAB PO SCH ×2 (08:08→21:54)
[2019-08-16] MEDS: HALOPERIDOL ORAL SOLN 10 MG/5 ML CUP PO SCH ×2 (08:08→21:56)
[2019-08-16] MEDS: NEOMYCIN-BACITRACIN-POLY OINT 14 GM TUBE TOPICAL SCH ×2 (08:10→21:53)
[2019-08-16] MEDS: LORazepam 1 MG TAB PO PRN ×2 (08:11→17:03)
[2019-08-16] MEDS ORDERED: HALOPERIDOL DECANOATE 50 MG/ML 1 ML VIAL IM ONE (09:00)
--- NOTE | 2019-08-16 09:49 | P.PN ---
Progress Note - Text Progress Note Date: 08/16/19 Interval History: Patient was seen in his room about to wash his hands and was agreeable to speak with policy writer sales in the office. Patient was more directable today however continues to be focused on discharge during the interview. Patient denies any overnight events and states that he is doing "okay". Patient continues to have a shallow affect and poverty of content. He states that he spoke with his mother yesterday who claims that she will be able to take him back home upon discharge. Patient states that he is willing to continue complying with the Haldol however once his dose minimized. Patient claims that the Zyprexa is helping him with sleep at the current dose and wants to continue at this time. Patient also stated that he went to some of the groups and claims that "I'm not learning anything" when asked to describe the content of the groups. He claims his mood is "fine" and denies any depression or anxiety at this time. Patient denies any side effects at this time from the medications and did not speak about his palm of his hand when asked. Patient continues to demonstrate poor insight into his condition and poor judgment which appears to be chronic. Patient continues to appear disheveled and was agreeable to take a shower later on today. He denies and is observed to not have any tremors or any muscle stiffness. At this time patient denies any suicidal or homical ideations, intent or plan. Patient denies any auditory, visual hallucinations and denies any paranoia or delusions. Mental Status Exam: General Appearance: Patient appears to be older than stated age is alert, and guarded. Disheveled appearance. Long hair and rabago. Behavior: Patient is more directable today and perseverates less on his medications. Focused on discharge. Speech: Patient's speech is fluent and nonpressured. Mood/Affect: Mood is "fine", affect is constricted/blunted. Suicidality/Homicidality: Patient denies having any suicidal or homicidal ideation intent or plan. Perceptions: Patient denies any auditory or visual hallucinations. Though content/process: [place] and thought process. Focused on discharge. Poverty of content. Memory and concentration: AOX3, grossly intact for the purposes of this session Judgment and insight: Chronically Poor/superficial, improving mildly. Assessment Schizophrenia Cannabis use disorder Plan: -Patient continues to meet criteria for inpatient psychiatric admission for symptom stabilization and safety. Patient has signed adult voluntary form and medication consent and was placed in patient's chart. -Medications: Will continue to decrease haloperidol liquid to 2 mg twice a day with plans to continue titrating down. Patient will be titrated down to 2 mg daily at bedtime on Monday (order already placed) with a plan to titrate off thereafter. Patient is to be offered by mouth liquid Haldol and if patient refuses then he is to receive IM Haldol as patient is currently court ordered. Nursing staff to check patient's mouth to ensure patient has been taking medication. Patient received Haldol-D 100 mg IM on 08/13/2019 and will be due for the extra 50 mg dose this morning. Will continue with Zyprexa 5 mg daily at bedtime for psychosis/insomnia. Will continue with Cogentin 1 mg twice a day for EPS prophylaxis and continue to monitor. -Board Certified Orthodontist received a letter from dermatology office stating that it was unclear of the correlation of any rash with the medication and that this should not prevent patient from continuing on with his haloperidol Decanoate injection. Patient is placed on Benadryl 25 mg by mouth when necessary for rash/itching. Letter was scanned and uploaded to patient's medical chart. -When necessary Geodon and Ativan for agitation/aggression. -NRT - needed as patient does not smoke. -SW on board for discharge planning. Patient received his court order DIALLO to on 08/07/2019. Board Certified Orthodontist attempted to call patient's mother yesterday however did not answer and left a voicemail. We'll attempt again today to contact mother/guardian. Patient likely discharge on Monday.
[2019-08-16] MEDS ORDERED: HALOPERIDOL LACTATE 5 MG/ML 1 ML VIAL IM PRN (21:00)
[2019-08-16] MEDS: OLANZapine 5 MG TAB PO SCH (21:54)
[2019-08-17] MEDS: BENZTROPINE MESYLATE 1 MG TAB PO SCH ×2 (08:06→20:22)
[2019-08-17] MEDS: GABAPENTIN 400 MG CAP PO SCH ×4 (08:06→21:03)
[2019-08-17] MEDS: NEOMYCIN-BACITRACIN-POLY OINT 14 GM TUBE TOPICAL SCH ×2 (08:06→20:26)
[2019-08-17] MEDS: HALOPERIDOL ORAL SOLN 10 MG/5 ML CUP PO SCH ×2 (08:06→20:23)
[2019-08-17] MEDS: LORazepam 1 MG TAB PO PRN ×2 (08:08→16:01)
[2019-08-17] MEDS: BUTALB/APAP/CAFF 50-325-40MG TAB PO PRN (08:08)
--- NOTE | 2019-08-17 11:19 | P.PN ---
Progress Note - Text Progress Note Date: 08/17/19 Interval history: [place] [facility] [place] He reports that the Haldol makes him feel tired. He talks about plans for discharge on Monday and feels like he will be ready for discharge. He follows up at [facility]. Sleep and appetite seem to be doing okay. Mental status exam: He is alert and cooperative with the interview. He does not show any agitation. Mood he describes as doing okay. He does not verbalize any thoughts of harm to self or others. He does not voice any hallucinations. He is thought processes are organized. Plan: Patient will be maintained on current psychotropic medication regimen. Continue to monitor for medication side effects and monitor his ongoing response to treatment.
[2019-08-17] MEDS: diphenhydrAMINE 25 MG CAP PO PRN (13:15)
[2019-08-17] MEDS: OLANZapine 5 MG TAB PO SCH (20:22)
[2019-08-18] MEDS: GABAPENTIN 400 MG CAP PO SCH ×4 (08:02→21:53)
[2019-08-18] MEDS: BENZTROPINE MESYLATE 1 MG TAB PO SCH ×2 (08:02→20:11)
[2019-08-18] MEDS: NEOMYCIN-BACITRACIN-POLY OINT 14 GM TUBE TOPICAL SCH ×2 (08:02→20:43)
[2019-08-18] MEDS: LORazepam 1 MG TAB PO PRN ×3 (08:03→21:53)
[2019-08-18] MEDS: BUTALB/APAP/CAFF 50-325-40MG TAB PO PRN (08:03)
--- NOTE | 2019-08-18 14:36 | P.PN ---
Progress Note - Text Progress Note Date: 08/18/19 Interval history: Patient is seen in cross coverage again today. He reports he slept at least 8 hours last night. He verbalizes that Haldol does make him kind of tired and seems to relay that he was having some EPS which the Cogentin has helped with. He feels like the Zyprexa does well for him. Mental status exam: He is alert and cooperative with the interview. His affect overall is restricted. He describes his mood is doing pretty good. He denies any thoughts of harm to self or others. He denies any hallucinations and he denies any bothersome thoughts. He does not make any nima delusional statements. He does not show any agitation. Plan: Patient will be maintained on current psychotropic medication regimen. Continue to monitor for any medication side effects monitor his ongoing response to treatment.
[2019-08-18 18:48] VITALS: BP 117/79
[2019-08-18] MEDS: OLANZapine 5 MG TAB PO SCH (20:11)
[2019-08-18] MEDS: diphenhydrAMINE 25 MG CAP PO PRN (20:11)
[2019-08-18] MEDS ORDERED: HALOPERIDOL ORAL SOLN 10 MG/5 ML CUP PO SCH (21:00)
[2019-08-19] MEDS: BUTALB/APAP/CAFF 50-325-40MG TAB PO PRN (04:00)
[2019-08-19] MEDS: BENZTROPINE MESYLATE 1 MG TAB PO SCH (08:12)
[2019-08-19] MEDS: GABAPENTIN 400 MG CAP PO SCH (08:12)
[2019-08-19] MEDS: LORazepam 1 MG TAB PO PRN (08:12)
[2019-08-19 08:15] VITALS: PULSE 113; RESP 18
[2019-08-19] MEDS: NEOMYCIN-BACITRACIN-POLY OINT 14 GM TUBE TOPICAL SCH (08:58)
--- NOTE | 2019-08-19 10:04 | P.DS ---
Providers Date of admission: 07/27/19 00:58 Expected date of discharge: 08/19/19 Attending physician: Arron Xiao MD Consults: 07/27/19 01:42 Consult Physician Routine Consulting Provider: Adela Mendosa Consult Reason/Comments: H&P Do you want consulting provider notified?: Yes, Notify in am Primary care physician: Hiram Castillo - Discharge Diagnosis(es) (1) Schizophrenia, chronic condition with acute exacerbation Current Visit: Yes Status: Acute Priority: High (2) Cannabis abuse Current Visit: Yes Status: Acute Priority: Medium Hospital Course: Admission HPI: Patient is a 29-year-old male with a chronic history of schizophrenia and cannabis abuse with mother being the guardian who presented with acute exacerbation of schizophrenia. As per H&P by Dr. Preciado "Patient brought in to ER on a case picker order with a chief complaint of "I don't know why uvaldo here, "I am doing every thing i am supposed to do, my correctional casework specialist visits me at home, i go to my appointments". Patient denies symptoms of depression. He says he hangs out with friends to do stuff. He reports good sleep and appetite. He claims taking good care of self, however his grooming and hygeine were very poor with unkempt hair and foul body odor. It is unclear if his living conditions are up to the standard as patient is very vague with his answers. He refused to answer if he was living alone are with others. He stated he does not believe he has mental illness but states he takes medications he is supposed to take. He reports taking zyprexa 10mg po qhs for reasons not known to him. He also reports taking neurontin 800mg po qid for headaches prescribed by his neurologist. He stated his medications help him in all different ways. He denies history of auditory or visual hallucinations. He denies paranoid ideations. He denies suicidal or homicidal ideations. He is guarded and minimizes his problems. He denies use of illicit drugs. when asked about his urine drug screen being po sitive for marijuana , he stated it is legal. He reports smoking marijuana few times a week of unknown amounts stating he doesn't keep track of it. Per medical records patient has history of poor follow-up and non-compliance with his psychiatric treatment." Hospital course: Upon admission to the unit patient was initially hostile, disheveled with poor judgment/insight. Patient was however directable and agreeable to commence treatment and was restarted on his home medications of Zyprexa 10 mg daily at bedtime for psychosis. Patient had a long history of medication noncompliance according to mother/guardian and it was recommended that patient be placed on a long-acting injection prior to leaving the hospital. Patient was on a deferral and demand for hearing was initiated. Patient received a court order for an alternative treatment order on 08/07/2019. At that time the decision was to place patient on haloperidol and eventually to haloperidol deanoate long-acting injection to ensure compliance. Haloperidol was selected as patient has a history of ALLERGIES to Abilify and Prolixin paliperidone Risperdal. Patient did state that she did not want to be on haloperidol and patient's mother presented an old letter from a dermatology clinic which stated that patient's rash may be from haloperidol decanoate however junior copywriter contacted the dermatology clinic ([facility]) and spoke with the PA over the phone who claimed that there was likely no direct link between haloperidol and patient's previous rash and that it should not exclude patient being on this medication in the future and would entail the need for close monitoring of patient's skin in case. Letter was faxed to the mental health unit and scanned into patient's chart. Patient was compliant with the medications and did experience one possible EPS like reaction as patient stated that his toes curled in one instance at night while on haloperidol and responded well to Benadryl and Cogentin. Patient also stated that on his right palm she had a itch however no visible rash was present and only mild erythema and isolated spot on the patient's palm. It was recommended by pharmacy to continue to monitor and suggested patient take Benadryl when necessary for itching. Patient was titrated up to 5 mg twice a day of haloperidol before receiving a dose of 100mg of Haldol Decanoate on 08/13/2019 and received an extra 50 mg dose IM on 08/16/2019. Patient will be due for his next 150 mg dose of Haldol-Decanoate 150 mg IM on 09/10/2019. Patient was then titrated off of by mouth haloperidol prior to discharge. Patient was placed on standing dose of 1 mg twice a day of Cogentin for EPS prophylaxis. Patient will continue on Zyprexa 5 mg daily at bedtime for psychosis/insomnia. Patient will essentially be on haloperidol-D injection and by mouth Zyprexa as patient requested to be placed on Zyprexa at nighttime due to anxiety/insomnia and was informed that this will likely need to be titrated off in the future. Patient spoke of his stressors and engaged in therapy both group and individual. Patient was also seen by medical team for history and physical exam. Throughout the course of the hospitalization patient gradually improved with regards to irritability, hygiene/grooming, mood, anxiety, sleep and became future oriented with improved insight and judgment. On the day of discharge patient denied any suicidal or homicidal ideations intent or plan denied any auditory or visual hallucinations. Patient endorsed wanting to live for his health and future. The patient denied any access to guns or weapons. Patient denied any paranoia and did not endorse any delusions. Patient does have a significant history of substance abuse and was counseled on abstaining from all substances including alcohol and marijuana. At this time patient claims that he would like to cut back on marijuana use himself. Patient was also counseled on the medications and need for regular compliance and was e ncouraged to follow-up with their outpatient appointment for mental health and also for primary care. Prior to discharge a family meeting will be arranged by social media coordinator to answer any questions and ensure safety upon discharge. Mental status exam: General Appearance: Patient appears to be older than stated age is alert, directable and attempts to cooperate. Patient is in no acute distress and has improved hygiene and grooming however continues to have long hair and long rabago. Behavior: Patient is calmly seated without any agitated behavior. Patient has no tremors or no signs of tardive dyskinesia. Speech: Patient's speech is fluent and nonpressured. Mood/Affect: Patient reports their mood is "good", affect is congruent and constricted. Suicidality/Homicidality: Patient denies having any suicidal or homicidal ideation intent or plan. Perceptions: Patient denies any auditory or visual hallucinations. Though content/process: There is no evidence of any delusional thought content and thought process is linear and goal-directed. [place] and focused on discharge. Memory and concentration: AOX3, grossly intact for the purposes of this session. Can spell "WORLD" backwards correctly. Judgment and insight: Chronically poor and somewhat superficial Impression: Chronic schizophrenia with acute exacerbation Cannabis abuse Plan: -Continue with discharge today as patient has improved and stabilized psychiatrically and is not currently an imminent threat to himself and/or others. -Continue medications: Can continue with Zyprexa 5 mg nightly for psychosis/insomnia with the intention of titrating down in the near future as patient is on 2 antipsychotics. Continue with Cogentin 1 mg twice a day for EPS prophylaxis. -Patient was titrated up to 5 mg twice a day of haloperidol before receiving a dose of 100mg of Haldol Decanoate on 08/13/2019 and received an extra 50 mg dose IM on 08/16/2019. Patient will be due for his next 150 mg dose of Haldol- Decanoate 150 mg IM on 09/10/2019. Prior to discharge patient was titrated off his oral haloperidol. -Patient was counseled on the need for medication compliance and appropriate follow-up at mental health and also primary care for medical issues. Patient verbalized understanding and agreed. -Social work to arrange for and conduct family meeting to ensure safety upon discharge and answer any questions/concerns. Social work also to arrange for patients follow up appointments with [facility] for psychiatric care along with follow up with primary care provider. Patient received a court order for alternative treatment order on 08/07/2019. -Patient counseled on abstaining from recreational drugs and marijuana and alcohol. Was informed/educated on the adverse effects on their physical and mental health. Patient claimed that he would like to cut back his use on cannabis himself. -Patient was instructed to return to the hospital or seek immediate medical care if their psychiatric or medical symptoms do worsen or reoccur. Allergies Allergy/AdvReac Type Severity Reaction Status Date / Time aripiprazole [From Abilify] Allergy Unknown Verified 07/27/19 17:50 fluphenazine HCl Allergy Unknown Verified 07/27/19 17:50 [From Prolixin] paliperidone [From Invega] Allergy Unknown Verified 07/27/19 17:50 risperidone [From Risperdal] Allergy Unknown Verified 07/27/19 17:50 fluphenazine enanthate AdvReac Severe Trismus Verified 07/27/19 17:50 [From Prolixin] Laboratory Results Urine Opiates Screen Not Detected (NotDetected) 07/26/19 22:44 Ur Oxycodone Screen Not Detected (NotDetected) 07/26/19 22:44 Urine Methadone Screen Not Detected (NotDetected) 07/26/19 22:44 Ur Propoxyphene Screen Not Detected (NotDetected) 07/26/19 22:44 Ur Barbiturates Screen Detected (NotDetected) H 07/26/19 22:44 U Tricyclic Antidepress Not Detected (NotDetected) 07/26/19 22:44 Ur Phencyclidine Scrn Not Detected (NotDetected) 07/26/19 22:44 Ur Amphetamines Screen Not Detected (NotDetected) 07/26/19 22:44 U Methamphetamines Scrn Not Detected (NotDetected) 07/26/19 22:44 U Benzodiazepines Scrn Not Detected (NotDetected) 07/26/19 22:44 Urine Cocaine Screen Not Detected (NotDetected) 07/26/19 22:44 U Marijuana (THC) Screen Detected (NotDetected) H 07/26/19 22:44 Vital Signs Temp 97.6 F 08/16/19 01:44 Pulse 113 H 08/19/19 08:14 Resp 18 08/19/19 08:14 BP 117/79 08/18/19 18:47 Pulse Ox 97 08/02/19 01:35 Patient Condition at Discharge: Stable Plan - Discharge Summary Discharge Rx Participant: No New Discharge Prescriptions: New diphenhydrAMINE [Benadryl] 25 mg PO DAILY PRN 28 Days cap PRN Reason: Itching Benztropine Mesylate [Cogentin] 1 mg PO BID 28 Days tab Butalb/APAP/Caff 50-325-40Mg [Fioricet 50-325-40] 1 each PO DAILY PRN 7 Days tab PRN Reason: Headache Gabapentin [Neurontin] 400 mg PO QID 10 Days cap Arcsdfun-Lwzcxmbicn-Gbsm Oint [Triple Antibiotic Ointment] 1 applic TOPICAL BID applic OLANZapine [ZyPREXA] 5 mg PO HS 28 Days tab Discontinued Gabapentin [Neurontin] 800 mg PO QID OLANZapine [ZyPREXA] 10 mg PO HS #30 tab hydrOXYzine HCL [Atarax] 10 mg PO HS PRN PRN Reason: Itching Ibuprofen [Motrin] 800 mg PO BID Halobetasol Propionate 1 applic TOPICAL DAILY PRN PRN Reason: Rash Butalbital/Aspirin/Caffeine [Augqat-Pvoymzp-Djvmpgao 50-325-40 mg] 1 tab PO Q4H PRN PRN Reason: Migraine Headache Discharge Medication List Benztropine Mesylate [Cogentin] 1 mg PO BID 28 Days tab 08/19/19 [Rx] Butalb/APAP/Caff 50-325-40Mg [Fioricet 50-325-40] 1 each PO DAILY PRN 7 Days tab 08/19/19 [Rx] Gabapentin [Neurontin] 400 mg PO QID 10 Days cap 08/19/19 [Rx] Nhdcsfut-Qbijvqolpt-Nwag Oint [Triple Antibiotic Ointment] 1 applic TOPICAL BID applic 08/19/19 [Rx] OLANZapine [ZyPREXA] 5 mg PO HS 28 Days tab 08/19/19 [Rx] diphenhydrAMINE [Benadryl] 25 mg PO DAILY PRN 28 Days cap 08/19/19 [Rx] Follow up Appointment(s)/Referral(s): Anna Gandhi MD [Primary Care Provider] - 1-2 days Activity/Diet/Wound Care/Special Instructions: Activity and diet as tolerated. No guns or weapons in the home. Refrain from alcohol and street drugs not prescribed by your physicians. Take all medications as prescribed, and attend all follow up appointments as scheduled. If in need of medication refills, please go to your Primary care physician, or your out patient psychiatric provider. If in crisis, please go to the nearest ER for an evaluation, or call . Discharge Disposition: HOME SELF-CARE
== END 2019-08-19 13:50 | disposition home or self-care (01) | DRG 885 ==
LOC: EC 20:53 → 3MHU 07-27 00:58
PROVIDERS: ADMIT Psychiatry & Neurology Psychiatry; ATTEND Psychiatry & Neurology Psychiatry
DX: F20.9 Schizophrenia, unspecified (principal); L03.116 Cellulitis of left lower limb; F41.0 Panic disorder [episodic paroxysmal anxiety]; G47.00 Insomnia, unspecified; F12.10 Cannabis abuse, uncomplicated; F19.10 Other psychoactive substance abuse, uncomplicated; I10 Essential (primary) hypertension; Z79.899 Other long term (current) drug therapy; Z91.19 Patient's noncompliance with other medical treatment and regimen; T43.96XA Underdosing of unspecified psychotropic drug, initial encounter; Z91.128 Patient's intentional underdosing of medication regimen for other reason; G43.909 Migraine, unspecified, not intractable, without status migrainosus
CPT/HCPCS: 80306; 82075

== ENCOUNTER 2019-11-11 15:50 | Emergency (ER) | payer MEDICARE, OTHER ==
[2019-11-11 15:58] VITALS: RESP 20; TEMP 98.4
[2019-11-11] MEDS ORDERED: LORazepam 1 MG TAB PO STA (16:22)
[2019-11-11 16:45] LABS: Basophils % (A) 0 %; Eosinophils # (A) 0.2 k/uL (0-0.7); Eosinophils % (A) 2 %; HCT 42.5 % (39.0-53.0); HGB 14.9 gm/dL (13.0-17.5); Lymphocytes # (A) 1.6 k/uL (1.0-4.8); Lymphocytes % (A) 24 %; MCH 31.1 pg (25.0-35.0); MCHC 35.1 g/dL (31.0-37.0); MCV 88.7 fL (80.0-100.0); Mean Platelet Volume 6.7; Monocytes # (A) 0.4 k/uL (0-1.0); Monocytes % (A) 6 %; Neutrophils # (A) 4.2 k/uL (1.3-7.7); Neutrophils % (A) 65 %; Platelet Count 277 k/uL (150-450); RDW 13.7 % (11.5-15.5); WBC 6.6 k/uL (3.8-10.6)
[2019-11-11 16:55] LABS: ALT 40 U/L (4-49); AST 33 U/L (17-59); African American GFR (CKD) >90 (>60 ml/min/1.73 sqM); Albumin 4.8 g/dL (3.5-5.0); Alkaline Phosphatase 82 U/L (38-126); Anion Gap 9 mmol/L; Blood Urea Nitrogen 21 mg/dL (9-20); Calcium 9.1 mg/dL (8.4-10.2); Carbon Dioxide 27 mmol/L (22-30); Chloride 101 mmol/L (98-107); Glucose 83 mg/dL (74-99); Non-African American GFR(CKD) >90 (>60 ml/min/1.73 sqM); Potassium 4.1 mmol/L (3.5-5.1); Sodium 137 mmol/L (137-145); Total Bilirubin 0.3 mg/dL (0.2-1.3); Total Protein 7.7 g/dL (6.3-8.2)
--- NOTE | 2019-11-11 17:12 | XR ---
EXAMINATION TYPE: XR chest 2V DATE OF EXAM: 11/11/2019 COMPARISON: 07/11/2016 HISTORY: Chest pain TECHNIQUE: FINDINGS: Heart and mediastinum are normal. Lungs are clear. Diaphragm is normal. Bony thorax appears normal. IMPRESSION: Normal chest
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
[2019-11-11] MEDS ORDERED: PENICILLIN VK 500MG STARTER 4 TAB BTL PO STA (17:54)
[2019-11-11 18:04] VITALS: BP 140/88; PULSE 69
== END 2019-11-11 18:18 | disposition home or self-care (01) ==
LOC: EC 15:50
DX: S02.5XXA Fracture of tooth (traumatic), initial encounter for closed fracture (principal); R07.89 Other chest pain; Z76.0 Encounter for issue of repeat prescription; G40.909 Epilepsy, unspecified, not intractable, without status epilepticus; G62.9 Polyneuropathy, unspecified; F20.9 Schizophrenia, unspecified; Z88.8 Allergy status to other drugs, medicaments and biological substances; Z79.899 Other long term (current) drug therapy; X58.XXXA Exposure to other specified factors, initial encounter
CPT/HCPCS: 36415; 71046; 80053; 84484; 85025; 93005; 99285

== ENCOUNTER 2020-01-25 22:44 | Emergency (ER) | payer MEDICARE, OTHER ==
[2020-01-26] MEDS ORDERED: LORazepam 1 MG TAB PO STA ×3 (02:05→17:28)
--- NOTE | 2020-01-26 02:39 | ED ---
General Adult HPI <Grant Stark - Last Filed: 01/28/20 16:04> <Misty Ashley - Last Filed: 01/28/20 23:00> - General Source: police, RN notes reviewed, old records reviewed Mode of arrival: ambulatory Limitations: no limitations <Jason Acosta - Last Filed: 01/29/20 12:39> - General Chief complaint: Psychiatric Symptoms Stated complaint: Mental Health Time Seen by Provider: 01/25/20 23:03 - History of Present Illness Initial comments: 29-year-old male patient presents to ED for psychiatric evaluation. Patient denies any physical complaints. Patient denies any suicidal or homicidal ideations. He reports that his mother always called the police to make false statements on him requiring him to come the emergency room. Systemic: Pt denies fatigue, fever/chills, rash. Pt denies weakness, night sweats, weight loss. Neuro: Pt denies headache, visual disturbances, syncope or pre-syncope. HEENT: Pt denies ocular discharge or irritation, otalgia, rhinorrhea, pharyngitis or notable lymphadenopathy. Cardiopulmonary: Pt denies chest pain, SOB, heart palpitations, dyspnea on exertion. Abdominal/GI: Pt denies abdominal pain, n/v/d. : Pt denies dysuria, burning w/ urination, frequency/urgency. Denies new onset urinary or bowel incontinence. MSK: Pt denies myalgia, loss of strength or function in extremities. Neuro: Pt denies new onset weakness, paresthesias. (Jason Acosta) - Related Data Home Medications Medication Instructions Recorded Confirmed Butalb/APAP/Caff 50-325-40Mg 1 tab PO BID PRN 01/26/20 01/26/20 [Fioricet 50-325-40] Cyclobenzaprine [Flexeril] 10 mg PO DAILY PRN 01/26/20 01/26/20 Ibuprofen [Motrin] 800 mg PO BID 01/26/20 01/26/20 OLANZapine [OLANZapine Odt] 15 mg PO HS 01/26/20 01/26/20 Previous Rx's Medication Instructions Recorded Gabapentin [Neurontin] 800 mg PO QID 7 Days #28 tablet 11/11/19 Allergies Allergy/AdvReac Type Severity Reaction Status Date / Time aripiprazole [From Abilify] Allergy Unknown Verified 01/25/20 22:57 fluphenazine HCl Allergy Unknown Verified 01/25/20 22:57 [From Prolixin] paliperidone [From Invega] Allergy Unknown Verified 01/25/20 22:57 risperidone [From Risperdal] Allergy Unknown Verified 01/25/20 22:57 fluphenazine enanthate AdvReac Severe Trismus Verified 01/25/20 22:57 [From Prolixin] Review of Systems ROS Other: All systems not noted in ROS Statement are negative. <Grant Stark - Last Filed: 01/28/20 16:04> ROS Other: All systems not noted in ROS Statement are negative. <Misty Ashley - Last Filed: 01/28/20 23:00> ROS Other: All systems not noted in ROS Statement are negative. <Jason Acosta - Last Filed: 01/29/20 12:39> ROS Statement: Those systems with pertinent positive or pertinent negative responses have been documented in the HPI. Past Medical History Past Medical History: No Reported History Additional Past Medical History / Comment(s): Schizophrenia, right arm fracture, degenerative disc to lower back, and right wrist plate and screws History of Any Multi-Drug Resistant Organisms: None Reported Past Surgical History: Orthopedic Surgery Additional Past Surgical History / Comment(s): mouth surgery, reduction of right arm fracture. Past Anesthesia/Blood Transfusion Reactions: No Reported Reaction Past Psychological History: Anxiety, Panic Disorder, Schizophrenia Smoking Status: Never smoker Past Alcohol Use History: Occasional Past Drug Use History: Marijuana - Past Family History Mother Brother(s) Family Medical History: Unable to Obtain <Jason Acosta - Last Filed: 01/29/20 12:39> General Exam Limitations: no limitations <Jason Acosta - Last Filed: 01/29/20 12:39> - General Exam Comments Initial Comments: Constitutional: NAD, AOX3, Pt has pleasant affect. HEENT: NC/AT, trachea midline, neck supple, no lymphadenopathy. Posterior pharynx non erythematous, without exudates. External ears appear normal, without discharge. Mucous membranes moist. Eyes PERRLA, EOM intact. There is no scleral icterus. No pallor noted. Cardiopulmonary: RRR, no murmurs, rubs or gallops, no JVD noted. Lungs CTAB in anterior and posterior jeffries. No peripheral edema. Abdominal exam: Abdomen soft and non-distended. Abdomen non-tender to palpation in all 4 quadrants. Bowel sounds active in LLQ. No hepatosplenomegaly. No ecchymosis Neuro: CN II-XII grossly intact. MSK: No posterior calf tenderness bilaterally, homans sign negative bilaterally. Posterior tibialis and radial pulse +2 bilaterally. Full active ROM in upper and lower extremities, (Jason Acosta) Course <Grant Stark - Last Filed: 01/28/20 16:04> Vital Signs 01/25/20 01/26/20 01/26/20 22:53 06:00 10:00 Temperature 98.1 F 98.4 F 97.2 F L Pulse Rate 99 96 78 Respiratory 18 16 18 Rate Blood Pressure 134/86 107/76 124/69 O2 Sat by Pulse 96 98 98 Oximetry 01/26/20 01/26/20 01/27/20 18:04 21:00 04:00 Temperature 98.1 F 97.7 F Pulse Rate 79 88 77 Respiratory 18 16 20 Rate Blood Pressure 124/89 132/82 120/76 O2 Sat by Pulse 99 98 98 Oximetry 01/27/20 01/27/20 01/27/20 06:34 08:32 09:00 Temperature Pulse Rate 76 Respiratory 20 18 18 Rate Blood Pressure 107/55 O2 Sat by Pulse 96 Oximetry 01/27/20 01/27/20 01/27/20 10:00 11:19 19:16 Temperature Pulse Rate 96 77 Respiratory 18 18 18 Rate Blood Pressure 128/77 123/78 O2 Sat by Pulse 98 96 Oximetry 01/28/20 01/28/20 01/28/20 04:00 06:33 11:42 Temperature 97.8 F Pulse Rate 68 95 Respiratory 16 16 18 Rate Blood Pressure 102/59 145/75 O2 Sat by Pulse 95 98 Oximetry 01/28/20 01/28/20 14:39 19:16 Temperature 98.4 F 97.8 F Pulse Rate 94 94 Respiratory 18 18 Rate Blood Pressure 144/75 134/83 O2 Sat by Pulse 98 97 Oximetry - Reevaluation(s) Reevaluation #1: 01/28/20 11:56 Patient is resting comfortably throughout the morning I did fill a clinical certification (Grant Stark) Medical Decision Making - Lab Data Result diagrams: 01/27/20 09:40 01/27/20 09:40 - Radiology Data Radiology results: report reviewed (I did review the imaging and report no acute findings.), image reviewed <Grant Stark - Last Filed: 01/28/20 16:04> - Lab Data Result diagrams: 01/27/20 09:40 01/27/20 09:40 <Misty Ashley - Last Filed: 01/28/20 23:00> - Lab Data Result diagrams: 01/27/20 09:40 01/27/20 09:40 <Jason Acosta - Last Filed: 01/29/20 12:39> - Medical Decision Making I spoke with Dr. Soria at 10:50 pm on 01/28/2020. He is a psychiatrist at [facility]. He does agree to accept the patient at their facility in the morning. Patient will be transferred around 6 AM. (Misty Ashley) 29-year-old male patient presents ED and coronary physician from mother. Patient denies any physical complaints. Patient denies any suicidal or homicidal ideations. He reports that his mother always called the police to make false statements on him requiring him to come the emergency room. Patient vital signs are stable, afebrile. Physical exam did not display acute pathology. COVID19 is positive. Patient signed out to Dr. Rdz pending EPS evaluation Pt was to be admitted to hospital however is covid positive without any current symptoms so EPS is working to find placement. (Jason Acosta) - Lab Data Lab Results 01/26/20 01/27/20 01/27/20 Range/Units 01:39 09:40 09:40 WBC 3.8 (3.8-10.6) k/uL RBC 5.11 (4.30-5.90) m/uL Hgb 15.3 (13.0-17.5) gm/dL Hct 45.6 (39.0-53.0) % MCV 89.3 (80.0-100.0) fL MCH 29.9 (25.0-35.0) pg MCHC 33.5 (31.0-37.0) g/dL RDW 13.3 (11.5-15.5) % Plt Count 203 (150-450) k/uL Neutrophils % 53 % Lymphocytes % 29 % Monocytes % 5 % Eosinophils % 9 % Basophils % 2 % Neutrophils # 2.0 (1.3-7.7) k/uL Lymphocytes # 1.1 (1.0-4.8) k/uL Monocytes # 0.2 (0-1.0) k/uL Eosinophils # 0.4 (0-0.7) k/uL Basophils # 0.1 (0-0.2) k/uL D-Dimer (<0.60) mg/L FEU Sodium 139 (137-145) mmol/L Potassium 4.4 (3.5-5.1) mmol/L Chloride 106 (98-107) mmol/L Carbon Dioxide 25 (22-30) mmol/L Anion Gap 8 mmol/L BUN 12 (9-20) mg/dL Creatinine 0.65 L (0.66-1.25) mg/dL Est GFR (CKD-EPI)AfAm >90 (>60 ml/min/1.73 sqM) Est GFR (CKD-EPI)NonAf >90 (>60 ml/min/1.73 sqM) Glucose 98 (74-99) mg/dL Calcium 9.2 (8.4-10.2) mg/dL Total Bilirubin 0.3 (0.2-1.3) mg/dL AST 29 (17-59) U/L ALT 28 (4-49) U/L Alkaline Phosphatase 82 (38-126) U/L CK-MB (CK-2) (0.0-2.4) ng/mL C-Reactive Protein <5.0 (<10.0) mg/L Total Protein 6.7 (6.3-8.2) g/dL Albumin 4.2 (3.5-5.0) g/dL Urine Opiates Screen (NotDetected) Ur Oxycodone Screen (NotDetected) Urine Methadone Screen (NotDetected) Ur Propoxyphene Screen (NotDetected) Ur Barbiturates Screen (NotDetected) U Tricyclic Antidepress (NotDetected) Ur Phencyclidine Scrn (NotDetected) Ur Amphetamines Screen (NotDetected) U Methamphetamines Scrn (NotDetected) U Benzodiazepines Scrn (NotDetected) Urine Cocaine Screen (NotDetected) U Marijuana (THC) Screen (NotDetected) Serum Alcohol <10 mg/dL Coronavirus (PCR) Detected A (Not Detectd) 01/27/20 01/27/20 01/28/20 Range/Units 09:40 09:40 16:30 WBC (3.8-10.6) k/uL RBC (4.30-5.90) m/uL Hgb (13.0-17.5) gm/dL Hct (39.0-53.0) % MCV (80.0-100.0) fL MCH (25.0-35.0) pg MCHC (31.0-37.0) g/dL RDW (11.5-15.5) % Plt Count (150-450) k/uL Neutrophils % % Lymphocytes % % Monocytes % % Eosinophils % % Basophils % % Neutrophils # (1.3-7.7) k/uL Lymphocytes # (1.0-4.8) k/uL Monocytes # (0-1.0) k/uL Eosinophils # (0-0.7) k/uL Basophils # (0-0.2) k/uL D-Dimer <0.17 (<0.60) mg/L FEU Sodium (137-145) mmol/L Potassium (3.5-5.1) mmol/L Chloride (98-107) mmol/L Carbon Dioxide (22-30) mmol/L Anion Gap mmol/L BUN (9-20) mg/dL Creatinine (0.66-1.25) mg/dL Est GFR (CKD-EPI)AfAm (>60 ml/min/1.73 sqM) Est GFR (CKD-EPI)NonAf (>60 ml/min/1.73 sqM) Glucose (74-99) mg/dL Calcium (8.4-10.2) mg/dL Total Bilirubin (0.2-1.3) mg/dL AST (17-59) U/L ALT (4-49) U/L Alkaline Phosphatase (38-126) U/L CK-MB (CK-2) 1.8 (0.0-2.4) ng/mL C-Reactive Protein (<10.0) mg/L Total Protein (6.3-8.2) g/dL Albumin (3.5-5.0) g/dL Urine Opiates Screen Not Detected (NotDetected) Ur Oxycodone Screen Not Detected (NotDetected) Urine Methadone Screen Not Detected (NotDetected) Ur Propoxyphene Screen Not Detected (NotDetected) Ur Barbiturates Screen Detected H (NotDetected) U Tricyclic Antidepress Not Detected (NotDetected) Ur Phencyclidine Scrn Not Detected (NotDetected) Ur Amphetamines Screen Not Detected (NotDetected) U Methamphetamines Scrn Not Detected (NotDetected) U Benzodiazepines Scrn Detected H (NotDetected) Urine Cocaine Screen Not Detected (NotDetected) U Marijuana (THC) Screen Not Detected (NotDetected) Serum Alcohol mg/dL Coronavirus (PCR) (Not Detectd) Disposition <Grant Stark - Last Filed: 01/28/20 16:04> <Misty Ashley - Last Filed: 01/28/20 23:00> Is patient prescribed a controlled substance at d/c from ED?: No <Jason Acosta - Last Filed: 01/29/20 12:39> Clinical Impression: Depression Disposition: TRANSFER TO PSYCH HOSP/UNIT Condition: Serious Referrals: Anna Gandhi MD [Primary Care Provider] - 1-2 days
[2020-01-26] MEDS: BUTALB/APAP/CAFF 50-325-40MG TAB PO SCH (21:28)
[2020-01-26] MEDS: OLANZapine 5 MG TAB PO SCH (21:28)
[2020-01-26] MEDS: IBUPROFEN 800 MG TAB PO SCH (21:29)
[2020-01-26] MEDS: GABAPENTIN 400 MG CAP PO SCH (21:29)
[2020-01-27] MEDS ORDERED: BUTALB/APAP/CAFF 50-325-40MG TAB PO SCH (09:00)
[2020-01-27 10:18] LABS: Basophils # (A) 0.1 k/uL (0-0.2); Basophils % (A) 2 %; Eosinophils # (A) 0.4 k/uL (0-0.7); Eosinophils % (A) 9 %; HCT 45.6 % (39.0-53.0); HGB 15.3 gm/dL (13.0-17.5); Lymphocytes # (A) 1.1 k/uL (1.0-4.8); Lymphocytes % (A) 29 %; MCH 29.9 pg (25.0-35.0); MCHC 33.5 g/dL (31.0-37.0); MCV 89.3 fL (80.0-100.0); Mean Platelet Volume 7.2; Monocytes # (A) 0.2 k/uL (0-1.0); Monocytes % (A) 5 %; Neutrophils % (A) 53 %; Platelet Count 203 k/uL (150-450); RBC 5.11 m/uL (4.30-5.90); RDW 13.3 % (11.5-15.5); WBC 3.8 k/uL (3.8-10.6)
[2020-01-27 10:29] LABS: African American GFR (CKD) >90 (>60 ml/min/1.73 sqM); Alcohol <10 mg/dL; Anion Gap 8 mmol/L; Blood Urea Nitrogen 12 mg/dL (9-20); C Reactive Protein <5.0 mg/L (<10.0); Calcium 9.2 mg/dL (8.4-10.2); Carbon Dioxide 25 mmol/L (22-30); Chloride 106 mmol/L (98-107); Glucose 98 mg/dL (74-99); Non-African American GFR(CKD) >90 (>60 ml/min/1.73 sqM); Potassium 4.4 mmol/L (3.5-5.1); Sodium 139 mmol/L (137-145)
[2020-01-27] MEDS: BUTALB/APAP/CAFF 50-325-40MG TAB PO SCH ×2 (11:30→11:51)
[2020-01-27] MEDS ORDERED: LORazepam 1 MG TAB PO STA ×2 (11:37→21:14)
[2020-01-27] MEDS: GABAPENTIN 400 MG CAP PO SCH ×3 (11:43→21:37)
[2020-01-27] MEDS: IBUPROFEN 800 MG TAB PO SCH ×2 (11:43→21:38)
[2020-01-27] MEDS ORDERED: HALOPERIDOL DECANOATE 100 MG/ML 1 ML VIAL IM ONE (12:00)
[2020-01-27] MEDS ORDERED: BUTALB/APAP/CAFF 50-325-40MG TAB PO STA (21:15)
[2020-01-27] MEDS: OLANZapine 5 MG TAB PO SCH (21:38)
[2020-01-28] MEDS: GABAPENTIN 400 MG CAP PO SCH ×3 (11:11→20:28)
[2020-01-28] MEDS: IBUPROFEN 800 MG TAB PO SCH (11:11)
[2020-01-28] MEDS: BUTALB/APAP/CAFF 50-325-40MG TAB PO SCH (11:40)
[2020-01-28 11:43] VITALS: RESP 18
[2020-01-28 14:40] VITALS: PULSE 94
--- NOTE | 2020-01-28 15:10 | XR ---
EXAMINATION TYPE: XR chest 1V DATE OF EXAM: 01/28/2020 COMPARISON: Chest x-ray November 11, 2019 HISTORY: Pneumonia. TECHNIQUE: Single a AP portable frontal upright view of the chest is obtained. FINDINGS: There is no new suspicious focal air space opacity, pleural effusion, or pneumothorax seen . The cardiac silhouette size remains within normal limits. Underlying dextroconvex scoliosis or pos itioning. IMPRESSION: No new acute pulmonary process.
[2020-01-28 15:13] LABS: ALT 28 U/L (4-49); AST 29 U/L (17-59); Albumin 4.2 g/dL (3.5-5.0); Alkaline Phosphatase 82 U/L (38-126); Total Bilirubin 0.3 mg/dL (0.2-1.3); Total Protein 6.7 g/dL (6.3-8.2)
[2020-01-28 16:50] LABS: Amphetamine Screen,Urine Not Detected (NotDetected); Barbiturate Screen,Urine Detected (NotDetected); Benzodiazepines Screen,Urine Detected (NotDetected); Cocaine Screen,Urine Not Detected (NotDetected); Methadone Screen, Urine Not Detected (NotDetected); Opiate Screen,Urine Not Detected (NotDetected); Oxycodone Screen, Urine Not Detected (NotDetected); Phencyclidine Screen,Urine Not Detected (NotDetected); Tricyclic Antidepressant,Urine Not Detected (NotDetected); Urn Cannabinoid Scrn Not Detected (NotDetected)
[2020-01-28 19:17] VITALS: BP 134/83; TEMP 97.8
[2020-01-28] MEDS ORDERED: LORazepam 1 MG TAB PO STA (20:18)
[2020-01-28] MEDS: OLANZapine 5 MG TAB PO SCH (20:46)
== END 2020-01-29 06:38 ==
LOC: EC 22:44
DX: U07.1 COVID-19 (principal); F32.9 Major depressive disorder, single episode, unspecified; F20.9 Schizophrenia, unspecified; M51.36 Other intervertebral disc degeneration, lumbar region; Z79.1 Long term (current) use of non-steroidal anti-inflammatories (NSAID); Z79.899 Other long term (current) drug therapy; Z88.8 Allergy status to other drugs, medicaments and biological substances
CPT/HCPCS: 36415; 80048; 80053; 80306; 80320; 82075; 82553; 85025; 85379; 86140; 87635; 96372; 99285

== ENCOUNTER 2020-04-13 17:55 | Emergency (ER) | payer MEDICARE, OTHER ==
[2020-04-13 18:03] VITALS: TEMP 98.1
[2020-04-13] MEDS ORDERED: HALOPERIDOL DECANOATE 100 MG/ML 1 ML VIAL IM ONE (19:15)
[2020-04-13 19:41] VITALS: BP 145/95; PULSE 87; RESP 26
== END 2020-04-13 19:41 | disposition home or self-care (01) ==
LOC: EC 17:55
DX: Z53.21 Procedure and treatment not carried out due to patient leaving prior to being seen by health care provider (principal)
CPT/HCPCS: 99499; J1631

== ENCOUNTER 2020-04-17 07:18 | Emergency (ER) | payer MEDICARE, OTHER ==
[2020-04-17 07:29] VITALS: BP 134/93; PULSE 98; RESP 18; TEMP 98
[2020-04-17] MEDS ORDERED: PENICILLIN VK 500MG STARTER 4 TAB BTL PO STA (07:36)
--- NOTE | 2020-04-17 07:38 | ED ---
ENT HPI - General Source: patient Mode of arrival: ambulatory <Tracey Barrios - Last Filed: 04/17/20 07:38> <Misty Ashley - Last Filed: 04/18/20 22:05> - General Chief complaint: Dental/Oral Stated complaint: dental pain Time Seen by Provider: 04/17/20 07:30 - History of Present Illness Initial comments: 29yo male presents with a chief complaint of left lower dental pain due to "for years pain has been ongoing for years increasing for the past week swelling fevers chills or malaise. Patient denies any facial swelling as additional complaints upon arrival patient appears well signs acute distress patient is asking for Klonopin, Ativan, pain killers by name- concern for drug seeking behaviors. (Tracey Barrios) - Related Data Home Medications Medication Instructions Recorded Confirmed Butalb/APAP/Caff 50-325-40Mg 1 tab PO BID PRN 01/26/20 04/13/20 [Fioricet 50-325-40] Cyclobenzaprine [Flexeril] 10 mg PO DAILY PRN 01/26/20 04/13/20 Ibuprofen [Motrin] 800 mg PO BID 01/26/20 04/13/20 Haloperidol Decanoate 100mg/Ml 200 mg IM Q14D 04/13/20 04/13/20 OLANZapine [ZyPREXA] 20 mg PO HS 04/13/20 04/13/20 clonazePAM [KlonoPIN] 1 mg PO HS 04/13/20 04/13/20 hydrOXYzine pamoate [Vistaril] 50 mg PO TID PRN 04/13/20 04/13/20 Previous Rx's Medication Instructions Recorded Gabapentin [Neurontin] 800 mg PO QID 7 Days #28 tablet 11/11/19 Penicillin V Potassium [Pen Vee K] 500 mg PO QID 7 Days #28 tablet 04/17/20 Allergies Allergy/AdvReac Type Severity Reaction Status Date / Time acetaminophen Allergy Unknown Verified 04/13/20 19:16 [From Darvocet-N] aripiprazole [From Abilify] Allergy Unknown Verified 04/13/20 19:16 fluphenazine HCl Allergy Unknown Verified 04/13/20 19:16 [From Prolixin] paliperidone [From Invega] Allergy Unknown Verified 04/13/20 19:16 propoxyphene Allergy Unknown Verified 04/13/20 19:16 [From Darvocet-N] risperidone [From Risperdal] Allergy Unknown Verified 04/13/20 19:16 ziprasidone [From Geodon] Allergy Unknown Verified 04/13/20 19:16 fluphenazine enanthate AdvReac Severe Trismus Verified 04/13/20 19:16 [From Prolixin] haloperidol [From Haldol] AdvReac Unknown Verified 04/13/20 19:16 Review of Systems ROS Other: All systems not noted in ROS Statement are negative. <Tracey Barrios - Last Filed: 04/17/20 07:38> ROS Other: All systems not noted in ROS Statement are negative. <Misty Ashley - Last Filed: 04/18/20 22:05> ROS Statement: Those systems with pertinent positive or pertinent negative responses have been documented in the HPI. Past Medical History Past Medical History: Seizure Disorder Additional Past Medical History / Comment(s): Schizophrenia, right arm fracture, degenerative disc to lower back, and right wrist plate and screws History of Any Multi-Drug Resistant Organisms: None Reported Past Surgical History: Orthopedic Surgery Additional Past Surgical History / Comment(s): mouth surgery, reduction of right arm fracture. Past Anesthesia/Blood Transfusion Reactions: No Reported Reaction Past Psychological History: Anxiety, Panic Disorder, Schizophrenia Smoking Status: Never smoker Past Alcohol Use History: Occasional Past Drug Use History: Marijuana - Past Family History Mother Brother(s) Family Medical History: Unable to Obtain <Tracey Barrios - Last Filed: 04/17/20 07:38> General Exam <Tracey Barrios - Last Filed: 04/17/20 07:38> - General Exam Comments Initial Comments: General: The patient is awake and alert, in no distress Eye: Pupils are equal, round and reactive to light, extra-ocular movements are intact. No nystagmus. There is normal conjunctiva bilaterally. No signs of icterus. Ears, nose, mouth and throat: There are moist mucous membranes and no oral lesions. There is cracked crowns of teeth #36 and #37 Musculoskeletal: Normal ROM, no tenderness. Strength 5/5. Sensation intact. Pulses equal bilaterally 2+. Neurological: A&O x 3. CN II-XII intact grossly, There are no obvious motor or sensory deficits. Coordination appears grossly intact. Speech is normal. Skin: Skin is warm and dry and no rashes or lesions are noted. Psychiatric: Cooperative, appropriate mood & affect, normal judgment. (Tracey Barrios) Course Vital Signs 04/17/20 04/17/20 07:23 07:57 Temperature 98.0 F Pulse Rate 98 98 Respiratory 18 18 Rate Blood Pressure 134/93 134/93 O2 Sat by Pulse 98 98 Oximetry Medical Decision Making <Tracey Barrios - Last Filed: 04/17/20 07:38> <Misty Ashley - Last Filed: 04/18/20 22:05> - Medical Decision Making 29-year-old male presented for left lower dental pain patient asking for pain medications by name he also asked for Ativan and Klonopin. Patient asking for pain medications by name that do not correlate with stated allergies. Patient will be discharged wt dentist f/u. Oral antitbiotics. No abscess was noted on exam, no swelling. No pain to percussion of tooth. cracked crown. Discussed case with Dr. Ashley "i need some pain killers and ativan" "I cant do tylenol #3 but I can do a norco 5mg" has states acetominophen and codeine allergy. (Tracey Barrios) I was available for consultation in the emergency department. The history and physical exam were done by the midlevel provider. I was consulted for this patients care. I reviewed the case with the midlevel provider and based on their presentation of the patient, I agree with the assessment, medical decision making and plan of care as documented. Chart was dictated using [employer] dictation software. Attempts were made to correct any dictation errors however some typographical errors may persist. Patient was seen during a national state of emergency due to the Covid-19 pandemic. (Misty Ashley) Disposition Is patient prescribed a controlled substance at d/c from ED?: No Time of Disposition: 07:38 <Tracey Barrios - Last Filed: 04/17/20 07:38> <Misty Ashley - Last Filed: 04/18/20 22:05> Clinical Impression: Chronic dental pain, Drug-seeking behavior Disposition: HOME SELF-CARE Condition: Good Instructions (If sedation given, give patient instructions): Toothache (ED) Additional Instructions: Please use medication as discussed. Please follow-up with family doctor in the next 2 days, recommend seeing dentist in next 1-2 days. Please return to emergency room if the symptoms increase or worsen or for any other concerns. Prescriptions: Penicillin V Potassium [Pen Vee K] 500 mg PO QID 7 Days #28 tablet Referrals: Anna Gandhi MD [Primary Care Provider] - 1-2 days
== END 2020-04-17 08:00 | disposition home or self-care (01) ==
LOC: EC 07:18
DX: G89.29 Other chronic pain (principal); K08.89 Other specified disorders of teeth and supporting structures; Z76.5 Malingerer [conscious simulation]; G40.909 Epilepsy, unspecified, not intractable, without status epilepticus; F41.9 Anxiety disorder, unspecified; F20.9 Schizophrenia, unspecified; Z98.890 Other specified postprocedural states; Z79.1 Long term (current) use of non-steroidal anti-inflammatories (NSAID); Z79.899 Other long term (current) drug therapy; Z88.6 Allergy status to analgesic agent; Z88.8 Allergy status to other drugs, medicaments and biological substances; Z88.5 Allergy status to narcotic agent
CPT/HCPCS: 99282

== ENCOUNTER 2020-04-27 12:52 | Inpatient (IN) | payer MEDICARE, MEDICAID ==
--- NOTE | 2020-04-27 13:27 | ED ---
Psych HPI - General Chief Complaint: Psychiatric Symptoms Stated Complaint: Mental health Time Seen by Provider: 04/27/20 12:56 Source: patient, RN notes reviewed Mode of arrival: ambulatory Limitations: no limitations - History of Present Illness Initial Comments: This a 29-year-old male presents emergency Department chief complaint of psychiatric issues. Patient states that he is very agitated, depressed and suicidal. Patient states he is due for his Haldol injection but states that when he gets the symptoms worsen. Patient states he needs medication change. Patient states that he does use marijuana recent alcohol use. Patient denies any fevers or chills. Denies any physical complaints. - Related Data Home Medications Medication Instructions Recorded Confirmed Butalb/APAP/Caff 50-325-40Mg 1 tab PO BID PRN 01/26/20 04/27/20 [Fioricet 50-325-40] Cyclobenzaprine [Flexeril] 10 mg PO DAILY PRN 01/26/20 04/27/20 Ibuprofen [Motrin] 800 mg PO BID 01/26/20 04/27/20 Haloperidol Decanoate 100mg/Ml 200 mg IM Q14D 04/13/20 04/27/20 OLANZapine [ZyPREXA] 20 mg PO HS 04/13/20 04/27/20 clonazePAM [KlonoPIN] 1 mg PO HS 04/13/20 04/27/20 hydrOXYzine pamoate [Vistaril] 50 mg PO TID PRN 04/13/20 04/27/20 Oxymetazoline HCl [Vicks Sinex] 2 - 3 spray EA NOSTRIL Q10H PRN 04/27/20 04/27/20 MDD 2 doses Previous Rx's Medication Instructions Recorded Gabapentin [Neurontin] 800 mg PO QID 7 Days #28 tablet 11/11/19 Allergies Allergy/AdvReac Type Severity Reaction Status Date / Time acetaminophen Allergy Unknown Verified 04/27/20 12:56 [From Darvocet-N] aripiprazole [From Abilify] Allergy Unknown Verified 04/27/20 12:56 fluphenazine HCl Allergy Unknown Verified 04/27/20 12:56 [From Prolixin] paliperidone [From Invega] Allergy Unknown Verified 04/27/20 12:56 propoxyphene Allergy Unknown Verified 04/27/20 12:56 [From Darvocet-N] risperidone [From Risperdal] Allergy Unknown Verified 04/27/20 12:56 ziprasidone [From Geodon] Allergy Unknown Verified 04/27/20 12:56 fluphenazine enanthate AdvReac Severe Trismus Verified 04/27/20 12:56 [From Prolixin] haloperidol [From Haldol] AdvReac Unknown Verified 04/27/20 12:56 Review of Systems ROS Statement: Those systems with pertinent positive or pertinent negative responses have been documented in the HPI. ROS Other: All systems not noted in ROS Statement are negative. Past Medical History Past Medical History: Seizure Disorder Additional Past Medical History / Comment(s): Schizophrenia, right arm fracture, degenerative disc to lower back, and right wrist plate and screws History of Any Multi-Drug Resistant Organisms: None Reported Past Surgical History: Orthopedic Surgery Additional Past Surgical History / Comment(s): mouth surgery, reduction of right arm fracture. Past Anesthesia/Blood Transfusion Reactions: No Reported Reaction Past Psychological History: Anxiety, Panic Disorder, Schizophrenia Smoking Status: Never smoker Past Alcohol Use History: Occasional Past Drug Use History: Marijuana - Past Family History Mother Brother(s) Family Medical History: Unable to Obtain General Exam Limitations: no limitations General appearance: alert, in no apparent distress Head exam: Present: atraumatic, normocephalic, normal inspection Eye exam: Present: normal appearance, PERRL, EOMI. Absent: scleral icterus, conjunctival injection, periorbital swelling ENT exam: Present: normal exam, normal oropharynx, mucous membranes moist, TM's normal bilaterally Neck exam: Present: normal inspection, full ROM. Absent: tenderness, meningismus, lymphadenopathy Respiratory exam: Present: normal lung sounds bilaterally. Absent: respiratory distress, wheezes, rales, rhonchi, stridor Cardiovascular Exam: Present: regular rate, normal rhythm, normal heart sounds. Absent: systolic murmur, diastolic murmur, rubs, gallop, clicks GI/Abdominal exam: Present: soft, normal bowel sounds. Absent: distended, tenderness, guarding, rebound, rigid Neurological exam: Present: alert, oriented X3, CN II-XII intact, reflexes normal. Absent: motor sensory deficit Psychiatric exam: Present: anxious Skin exam: Present: warm, dry, intact, normal color. Absent: rash Course Vital Signs 08/03/20 12:53 Temperature 98.4 F Pulse Rate 104 H Respiratory 20 Rate Blood Pressure 150/102 O2 Sat by Pulse 100 Oximetry Medical Decision Making - Lab Data Lab Results 04/27/20 Range/Units 13:07 Urine Opiates Screen Not Detected (NotDetected) Ur Oxycodone Screen Not Detected (NotDetected) Urine Methadone Screen Not Detected (NotDetected) Ur Propoxyphene Screen Not Detected (NotDetected) Ur Barbiturates Screen Detected H (NotDetected) U Tricyclic Antidepress Not Detected (NotDetected) Ur Phencyclidine Scrn Not Detected (NotDetected) Ur Amphetamines Screen Detected H (NotDetected) U Methamphetamines Scrn Not Detected (NotDetected) U Benzodiazepines Scrn Not Detected (NotDetected) Urine Cocaine Screen Not Detected (NotDetected) U Marijuana (THC) Screen Detected H (NotDetected) Disposition Clinical Impression: Schizophrenia Disposition: TRANSFER TO PSYCH HOSP/UNIT Condition: Fair
[2020-04-27 13:34] LABS: Amphetamine Screen,Urine Detected (NotDetected); Barbiturate Screen,Urine Detected (NotDetected); Benzodiazepines Screen,Urine Not Detected (NotDetected); Cocaine Screen,Urine Not Detected (NotDetected); Methadone Screen, Urine Not Detected (NotDetected); Opiate Screen,Urine Not Detected (NotDetected); Oxycodone Screen, Urine Not Detected (NotDetected); Phencyclidine Screen,Urine Not Detected (NotDetected); Tricyclic Antidepressant,Urine Not Detected (NotDetected); Urn Cannabinoid Scrn Detected (NotDetected)
[2020-04-27] MEDS ORDERED: hydrOXYzine pamoate 25 MG CAP PO PRN (15:07)
[2020-04-27] MEDS ORDERED: OXYMETAZOLINE 0.05% NASL SPRAY 1 SPRAY BOTTLE EA NOSTRIL PRN (15:07)
[2020-04-27] MEDS ORDERED: MAG HYDROX/AL HYDROX/SIMETH 30 ML CUP PO PRN (15:09)
[2020-04-27] MEDS ORDERED: MAGNESIUM HYDROXIDE 2,400 MG/10 ML CUP PO PRN (15:09)
[2020-04-27] MEDS ORDERED: ZIPRASIDONE 20 MG VIAL IM PRN (15:09)
[2020-04-27] MEDS ORDERED: LORazepam 2 MG/ML INJ IM PRN (15:10)
[2020-04-27] MEDS: LORazepam 1 MG TAB PO PRN ×2 (16:07→21:40)
[2020-04-27] MEDS: ACETAMINOPHEN TAB 325 MG TAB PO PRN (16:07)
[2020-04-27] MEDS: GABAPENTIN 400 MG CAP PO SCH ×2 (17:55→21:31)
[2020-04-27] MEDS: OLANZapine 10 MG TAB PO SCH (21:31)
[2020-04-27] MEDS: IBUPROFEN 800 MG TAB PO SCH (21:32)
--- NOTE | 2020-04-28 06:21 | CONS ---
CONSULTATION DATE OF SERVICE: 04/27/2020 REASON FOR CONSULTATION: Advice regarding possible migraine and other medical issues requested by Psychiatry. HISTORY OF PRESENT ILLNESS: This 29-year-old gentleman with a past medical history of seizure disorder, schizophrenia, anxiety, panic disorder, history of THC, history of apparent migraine, being followed by Dr. Gandhi and Dr. Faustin in the outpatient setting was admitted for psychiatric evaluation. Patient has significant dry hands and the patient also had complaints of migraine. Apparently was getting Fioricet from Dr. Faustin. The documents are not available at this time. There is no history of any fever, rigors. No history of headache, loss of consciousness, seizures at this time. PAST MEDICAL HISTORY: History of seizure disorder, schizophrenia, anxiety, panic attack, marijuana daily. MEDICATIONS: Home medications are: Vicks, Zyprexa, Motrin, Vistaril, Neurontin, Flexeril, Fioricet, Klonopin, haloperidol IM. Doses are reviewed. ALLERGIES: DARVOCET, ABILIFY, PROLIXIN, INVEGA, DARVOCET N 100, RISPERDAL, GEODON, PROLIXIN, HALDOL. FAMILY HISTORY: No history of heart disease or strokes in the family. SOCIAL HISTORY: No history of smoking. History of THC. REVIEW OF SYSTEMS: ENT: ENT mentioned earlier. CARDIOVASCULAR SYSTEM: No angina or palpitations. RESPIRATORY SYSTEM: As mentioned earlier. GI: No nausea. : No dysuria. NERVOUS SYSTEM: As mentioned earlier. ALLERGY/IMMUNOLOGY: No asthma. MUSCULOSKELETAL: As mentioned earlier. HEMATOLOGY: No history of anemia. ENDOCRINE: No history of diabetes or hypothyroidism. CONSTITUTIONAL: As mentioned earlier. DERMATOLOGY: Negative. RHEUMATOLOGY: Negative. PSYCHIATRY: As mentioned earlier. PHYSICAL EXAMINATION: Patient is alert and oriented x3. The pulse is 104, blood pressure 150/102, respiration 20, temperature 98.4, pulse ox 100% on room air. HEENT: Conjunctivae normal. Oral mucosa moist. NECK: No jugular venous distention. No carotid bruit. No lymph node enlargement. CARDIOVASCULAR: S1, S2 muffled. RESPIRATORY: Breath sounds diminished at the bases. No rhonchi, no crackles. ABDOMEN: Soft. Nontender. No mass palpable. LEGS: No edema, no swelling. NERVOUS SYSTEM: Higher functions as mentioned. Moves all 4 limbs. No focal motor or sensory deficits. LYMPHATICS: No lymphadenopathy of the neck, axillae or groin. SKIN: Both hands are dry hands with excoriation present. LABS: Drug screen positive for barbiturates, amphetamine and marijuana. ASSESSMENT: 1. Dry skin possibly eczematous reaction. 2. History of headaches, possible migrainous headaches. 3. History of seizure disorder. 4. History of schizophrenia. 5. History of degenerative joint disease. 6. History of anxiety, panic attack. 7. History of THC. 8. History of EtOH. 9. Transient hypertension. RECOMMENDATIONS AND DISCUSSION: In this 29-year-old gentleman who presented with multiple medical issues, at this time I recommend to continue current medications and symptomatic treatment. Eucerin for local application. The patient is on Fioricet from neurologist if it can be confirmed from the neurologist office, I would recommend continue as a p.r.n. medication. Otherwise, I would recommend CIWA protocol and continue to monitor. We will follow the patient closely with you and patient may be asked to follow up with Dr. Gandhi closely after discharge. I would also recommend a small dose of clonidine also at this time. Thank you for letting us participate in the care of this patient. MMODL / IJN: [id number] /
[2020-04-28] MEDS: GABAPENTIN 400 MG CAP PO SCH ×4 (08:45→20:14)
[2020-04-28] MEDS: IBUPROFEN 800 MG TAB PO SCH ×2 (08:45→20:15)
[2020-04-28] MEDS: cloNIDine HCL 0.1 MG TAB PO SCH ×2 (08:47→20:15)
[2020-04-28] MEDS: LORazepam 1 MG TAB PO PRN (08:48)
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
[2020-04-28 09:40] LABS: Basophils % (A) 1 %; Eosinophils # (A) 0.2 k/uL (0-0.7); Eosinophils % (A) 4 %; HCT 46.5 % (39.0-53.0); HGB 15.9 gm/dL (13.0-17.5); Lymphocytes # (A) 1.2 k/uL (1.0-4.8); Lymphocytes % (A) 27 %; MCH 29.7 pg (25.0-35.0); MCHC 34.2 g/dL (31.0-37.0); MCV 86.9 fL (80.0-100.0); Monocytes # (A) 0.2 k/uL (0-1.0); Monocytes % (A) 5 %; Neutrophils # (A) 2.6 k/uL (1.3-7.7); Neutrophils % (A) 61 %; Platelet Count 158 k/uL (150-450); RBC 5.35 m/uL (4.30-5.90); RDW 12.9 % (11.5-15.5); WBC 4.2 k/uL (3.8-10.6)
[2020-04-28] MEDS: BENZTROPINE MESYLATE 1 MG TAB PO SCH ×2 (09:41→20:14)
[2020-04-28] MEDS: clonazePAM 1 MG TAB PO SCH ×2 (09:41→20:35)
[2020-04-28] MEDS: BUTALB/APAP/CAFF 50-325-40MG TAB PO PRN ×2 (09:43→20:17)
[2020-04-28] MEDS: MINERAL OIL-WHITE PETROLATUM 120 GM JAR TOPICAL PRN (09:47)
[2020-04-28 09:55] LABS: ALT 18 U/L (4-49); AST 20 U/L (17-59); African American GFR (CKD) >90 (>60 ml/min/1.73 sqM); Albumin 4.7 g/dL (3.5-5.0); Alkaline Phosphatase 98 U/L (38-126); Anion Gap 11 mmol/L; Blood Urea Nitrogen 13 mg/dL (9-20); Calcium 9.2 mg/dL (8.4-10.2); Carbon Dioxide 23 mmol/L (22-30); Chloride 104 mmol/L (98-107); Cholesterol 159 mg/dL (<200); Glucose 151 mg/dL (74-99); HDL Cholesterol 57 mg/dL (40-60); LDL Cholesterol,Calculated 68 mg/dL (0-99); Non-African American GFR(CKD) >90 (>60 ml/min/1.73 sqM); Potassium 4.6 mmol/L (3.5-5.1); Sodium 138 mmol/L (137-145); Total Bilirubin 0.5 mg/dL (0.2-1.3); Total Protein 7.4 g/dL (6.3-8.2); Triglycerides 169 mg/dL (<150)
[2020-04-28] MEDS: ACETAMINOPHEN TAB 325 MG TAB PO PRN (14:11)
[2020-04-28 16:59] LABS: Hemoglobin A1C 5.1 % (4.0-6.0)
[2020-04-28] MEDS: OLANZapine 10 MG TAB PO SCH (20:15)
[2020-04-29] MEDS: MINERAL OIL-WHITE PETROLATUM 120 GM JAR TOPICAL PRN (03:12)
[2020-04-29] MEDS: cloNIDine HCL 0.1 MG TAB PO SCH ×3 (08:31→22:18)
[2020-04-29] MEDS: BENZTROPINE MESYLATE 1 MG TAB PO SCH ×2 (08:31→20:13)
[2020-04-29] MEDS: clonazePAM 1 MG TAB PO SCH ×2 (08:31→20:12)
[2020-04-29] MEDS: GABAPENTIN 400 MG CAP PO SCH ×4 (08:32→20:12)
[2020-04-29] MEDS: IBUPROFEN 800 MG TAB PO SCH ×3 (08:32→22:19)
[2020-04-29] MEDS: BUTALB/APAP/CAFF 50-325-40MG TAB PO PRN ×2 (08:34→20:13)
--- NOTE | 2020-04-29 10:26 | P.PN ---
Subjective Progress Note Date: 04/29/20 Principal diagnosis: Diagnoses: Schizophrenic disorder Subjective: Patient says that his leg cramps are better on the Cogentin he still feels quite restless and has to pace and had difficulty sitting to my session. He was able to sleep well last night appetite is good. Denies any suicidality or homicidality. Says he knows he needs to take medication and is willing to take Zyprexa.(The patient has tardive dyskinesia from the Haldol and other psychotropics it is possible that the Zyprexa will make it worse although it has a lower incidence than Haldol. He may need to shift over to Clozaril but at this point says he would not be willing to take blood tests every week.) Objective: Vital signs: Temperature 97.8 heart rate 92 which is down as he is less anxious respirations 16 blood pressure 114/78 the patient was running as fast as 118 as of yesterday Labs he has high cholesterol and high glucose they thinks he ate something shortly before the test was run. He was positive for amphetamines but denies the use of any Adderall or methamphetamine he says he uses a kind of a nasal inhaler for congestion put out by Vicks that causes blood tests to come back positive for amphetamines. I looked it up and it does have 50 mg of levo amphetamine in it but is shown no evidence of people abusing it for that.(Of course he could be using methamphetamines and this is just a convenient explanation but he points out that his teeth are falling out of his head) I talked to his mother at great length and she was not aware of him using any amphetamines he said he had tested positive in the past and swore he had never used any and the doctor told him while he went any Vicks inhaler and that so he found out that they can change the lab test Groups the patient has been going TAT groups came in late but was compliant initiated talking with peers and staff appropriate somewhat disheveled which I think is his chronic appearance. Staff report is that he denies any psychotic symptoms any suicide or homicidal ideas that he is cooperative Mental status exam: The patient is alert oriented to person place time and circumstance gait and station are normal minimal self-care but adequate cooperative no agitation serious affect no signs of any psychosis. Lengthy discussion with mother: When the patient first began to have trouble at about age 17 he had an episode that lasted a long time where he was yelling all the time threatening to kill his mother deciding that one of his best friends a cousin of his was a horrible person threatening his cousin believing that he the patient was God and believing demons were after him hearing voices that commanded him to do things believing there was poison his food and not eating talking to people that were not there labile mood from threatening mom to weeping and in asking her to forgive him strange behaviors such as hiding food wrappers and empty cups because he might need them later and not taking care of basic ADLs. She says she is not aware of him using any methamphetamine but does feel that he hangs out with friends that are detrimental. He was living with her but due to the whole Covid issue he is not staying there at this time. She says he seems to do well when he is on Zyprexa and Klonopin but then when he does well after about a year he does decide maybe I don't need this medication and relapses. She says that she has noticed that total cramping and the lip movements herself when the patient is concentrating on something else. Diagnosis: schizophrenia Assessment and plan this is a difficult case however I do believe that Haldol but can await cannot be given due to the high probability of tardive dyskinesia and that it guarantee his to make it worse and this fairly young person. Some mild we will have to figure out a way to hold him accountable for taking his medication. For now we will go with Zyprexa 20 and Klonopin 1 twice a day. I expect a bad side effects of the Haldol shot to wear off over the next few days and then we can stop using any added when necessary medications look for probable discharge next week Monday or Monday Objective - Vital Signs Vital signs: Vital Signs Temp 97.8 F 04/29/20 07:00 Pulse 92 04/29/20 07:00 Resp 16 04/29/20 07:00 BP 114/78 04/29/20 07:00 Pulse Ox 96 04/28/20 07:08 - Labs CBC & Chem 7: 04/28/20 08:53 04/28/20 08:53
[2020-04-29] MEDS: ACETAMINOPHEN TAB 325 MG TAB PO PRN ×2 (12:00→20:15)
[2020-04-29 19:56] LABS: Appearance,Urine Clear (Clear); Bilirubin,Urine Negative (Negative); Blood,Urine Negative (Negative); Color,Urine Light Yellow; Glucose,Urine (UA) Negative (Negative); Ketones,Urine Negative (Negative); Leukocyte Esterase,Urine Negative (Negative); Nitrite,Urine Negative (Negative); PH, Urine 6.5 (5.0-8.0); Protein,Urine Negative (Negative); Specific Gravity,Urine 1.018 (1.001-1.035); Urobilinogen,Urine <2.0 mg/dL (<2.0)
[2020-04-29] MEDS: OLANZapine 10 MG TAB PO SCH (20:13)
[2020-04-30] MEDS: clonazePAM 1 MG TAB PO SCH ×2 (08:00→20:06)
[2020-04-30] MEDS: GABAPENTIN 400 MG CAP PO SCH ×4 (08:00→21:47)
[2020-04-30] MEDS: cloNIDine HCL 0.1 MG TAB PO SCH ×2 (08:00→20:06)
[2020-04-30] MEDS: BENZTROPINE MESYLATE 1 MG TAB PO SCH ×2 (08:00→20:06)
[2020-04-30] MEDS: IBUPROFEN 800 MG TAB PO SCH ×2 (08:01→20:06)
[2020-04-30] MEDS: BUTALB/APAP/CAFF 50-325-40MG TAB PO PRN ×2 (08:02→20:07)
--- NOTE | 2020-04-30 10:52 | P.PN ---
Subjective Progress Note Date: 04/30/20 Principal diagnosis: Diagnoses: Schizophrenic disorder Subjective: He says that he has learned his lesson and will take his medications faithfully. Says his been sleeping well and eating well. Denies any suicidality or homicidality. He feels a lot better off of the Haldol although there is still some on board since his only little over 2 weeks ago he received it. The tardive dyskinesia is at about a 2 I do expected to get a little worse over the next week or 2 as the Haldol worse off. Objective vital signs temperature 97.8 heart rate 91 respiration 18 pressure 137/71 Labs: Nothing new his glucose was elevated 151 when he came in He became anxious enough to require when necessary Ativan at 9:30 yesterday morning Staff report that he interacts well with peers and to staff he denies any suicidality or homicidality Groups he has been attending although he is anxious from akathisia and had to leave and return and walk around is attentive and verbal and spontaneous bright affect Mental status exam patient is alert good eye contact almost too positive answers fit the questions self-care is minimal but I think this just his personality and baseline no evidence of psychosis denies suicidality or homicidality Assessment plan: I think we can look for discharge tomorrow if he does not develop any signs of psychosis although he is still weaning off the Haldol shot and has a lot of symptoms they seem to be better. He is compliant with medication and treatment. His mother says that when he is feeling well he usually complies quite well for somewhere around a year and then stops his medication unfortunately the use of time release injections isn't possible due to his tardive dyskinesia. I went over in great detail tardive dyskinesia and what causes them what makes it worse and that there is only one medicine that treats it and it has its own side effects. Even the Zyprexa can cause it to get worse but the patient does not want to go to taking nothing and does not want to try the Clozaril says that he and his family and we'll keep an eye and see if it gets any worse Objective - Vital Signs Vital signs: Vital Signs Temp 97.8 F 04/30/20 06:08 Pulse 91 04/30/20 06:08 Resp 18 04/30/20 06:08 BP 137/71 04/30/20 06:08 Pulse Ox 96 04/28/20 07:08 - Labs CBC & Chem 7: 04/28/20 08:53 04/28/20 08:53
[2020-04-30] MEDS: ACETAMINOPHEN TAB 325 MG TAB PO PRN ×2 (10:58→16:10)
[2020-04-30] MEDS: MINERAL OIL-WHITE PETROLATUM 120 GM JAR TOPICAL PRN (19:43)
[2020-04-30] MEDS: OLANZapine 10 MG TAB PO SCH (20:06)
[2020-05-01 06:48] VITALS: BP 110/67; PULSE 80; RESP 16; TEMP 98.2
[2020-05-01] MEDS: cloNIDine HCL 0.1 MG TAB PO SCH (08:28)
[2020-05-01] MEDS: BUTALB/APAP/CAFF 50-325-40MG TAB PO PRN (08:28)
[2020-05-01] MEDS: BENZTROPINE MESYLATE 1 MG TAB PO SCH (08:28)
[2020-05-01] MEDS: GABAPENTIN 400 MG CAP PO SCH ×2 (08:28→12:43)
[2020-05-01] MEDS: clonazePAM 1 MG TAB PO SCH (08:28)
[2020-05-01] MEDS: IBUPROFEN 800 MG TAB PO SCH (08:29)
[2020-05-01] MEDS: MINERAL OIL-WHITE PETROLATUM 120 GM JAR TOPICAL PRN (08:32)
--- NOTE | 2020-05-01 09:04 | P.DS ---
Providers Date of admission: 04/27/20 14:36 Expected date of discharge: 05/01/20 Attending physician: Robert Nice MD Consults: 04/27/20 15:09 Consult Physician Routine Consulting Provider: Adela Mendosa Consult Reason/Comments: H&P and medical Do you want consulting provider notified?: Yes Primary care physician: Hiram Lopez [facility] Course: Hospital course the patient was admitted on 04/27 and discharged on 05/01 Diagnosis: Schizophrenic disorder The patient had had a shot of Haldol for 2 weeks but still had muscle cramps so I gave him some Cogentin and he got relief and we'll continue that after discharge He also had akathisia and restless leg syndrome. And about a 2+ tardive dyskinesia with lip movements and toe cramping. We decided to shift him to Zyprexa 20 which he does well on. His mother says that he takes Klonopin 1 mg twice a day does not escalate it and always does well for long periods of time on the combination of Zyprexa and Klonopin. Mental status exam patient is calm good eye contact cooperative going to groups alert oriented to person place time and circumstance was able to voice goals for the future denies any suicidality or homicidality reasonable self-care gait and station are normal sleeping well Assessment patient doing somewhat better his prognosis depends entirely on whether he's got it to his head that he needs to take his medicines. At this point we will continue him on Seroquel though it can make tardive dyskinesia worse it is probably not the offending agent that is probably the Haldol so his outpatient doctor will need to watch and if he gets any worse consider talking the patient into Clozaril however the patient just cannot tolerate any blood being drawn or needles so that is not practical but without some dopamine 2 jr he would relapse. So this is a difficult situation. I did talk to his doctor that had cared for him in our hospital before, who was able to get the patient on Haldol which does lead to stability but at this point it is guaranteed to make the tardive dyskinesia worse. The patient be going back to [facility] and of course they will do what they think is best in regards to his medications but he already seems to be much more comfortable off of the Haldol. Assessment: Assessment the patient has a history of noncompliance and a substance use. He freely admits to using CBD but denies the use of other substances although the team is skeptical. However he has been stable on the unit tolerating medicine well has no signs of psychosis no suicidality no homicidality and is cooperative with his medications. His mother says he does well on these medications for long periods of time but acknowledges that he has a problem with continuing after he is been doing well for a while. Hopefully the patient has come to realize that he needs to take medications long-term. Prognosis: Is guarded but improved Health Concerns: Patient has a history of seizure disorder and is on medications for that he did not have any seizures while in the hospital no other acute problems Pertinent Studies: Laboratory tests he had a hematology was fine general chemistry the patient been eating says glucose was somewhat elevated when he came in as were his triglycerides otherwise it was normal TSH was normal urine was normal on toxicology was positive for barbiturates which he takes for seizures and amphetamines which she claims comes from a Vicks inhaler and of course the marijuana that he acknowledges Procedures: None Plan - Discharge Summary New Discharge Prescriptions: No Action Gabapentin [Neurontin] 800 mg PO QID 7 Days #28 tablet Ibuprofen [Motrin] 800 mg PO BID Cyclobenzaprine [Flexeril] 10 mg PO DAILY PRN PRN Reason: Muscle Spasm Butalb/APAP/Caff 50-325-40Mg [Fioricet 50-325-40] 1 tab PO BID PRN PRN Reason: Migraine Headache Haloperidol Decanoate 100mg/Ml 200 mg IM Q14D clonazePAM [KlonoPIN] 1 mg PO HS hydrOXYzine pamoate [Vistaril] 50 mg PO TID PRN PRN Reason: Anxiety OLANZapine [ZyPREXA] 20 mg PO HS Oxymetazoline HCl [Vicks Sinex] 2 - 3 spray EA NOSTRIL Q10H PRN MDD 2 doses PRN Reason: Congestion Discharge Medication List Gabapentin [Neurontin] 800 mg PO QID 7 Days #28 tablet 11/11/19 [Rx] Butalb/APAP/Caff 50-325-40Mg [Fioricet 50-325-40] 1 tab PO BID PRN 01/26/20 [History] Cyclobenzaprine [Flexeril] 10 mg PO DAILY PRN 01/26/20 [History] Ibuprofen [Motrin] 800 mg PO BID 01/26/20 [History] Haloperidol Decanoate 100mg/Ml 200 mg IM Q14D 04/13/20 [History] OLANZapine [ZyPREXA] 20 mg PO HS 04/13/20 [History] clonazePAM [KlonoPIN] 1 mg PO HS 04/13/20 [History] hydrOXYzine pamoate [Vistaril] 50 mg PO TID PRN 04/13/20 [History] Oxymetazoline HCl [Vicks Sinex] 2 - 3 spray EA NOSTRIL Q10H PRN MDD 2 doses 04/27/20 [History] Follow up Appointment(s)/Referral(s): [facility] [Outside] - 05/08/20 11:30 am (05-08-20 @ 11:[address] Monge at [facility] office) Anna Gandhi MD [Primary Care Provider] - 1-2 days Activity/Diet/Wound Care/Special Instructions: Activity and diet as tolerated. Avoid the use of street drugs and alcohol. Take all medications as prescribed. When you are in need of refills on your medications please contact your medical provider and/or outpatient psychiatrist to have this done. Please go to scheduled outpatient appointment for aftercare treatment. If symptoms return or become worse, call the crisis line at and/or go to the nearest emergency room for evaluation.
== END 2020-05-01 13:15 | disposition home or self-care (01) | DRG 885 ==
LOC: EC 12:52 → 3MHU 14:36
PROVIDERS: ADMIT Psychiatry & Neurology Psychiatry; ATTEND Psychiatry & Neurology Psychiatry
DX: F20.9 Schizophrenia, unspecified (principal); R45.851 Suicidal ideations; G25.71 Drug induced akathisia; G40.909 Epilepsy, unspecified, not intractable, without status epilepticus; M51.36 Other intervertebral disc degeneration, lumbar region; F12.90 Cannabis use, unspecified, uncomplicated; F41.0 Panic disorder [episodic paroxysmal anxiety]; G25.81 Restless legs syndrome; G43.909 Migraine, unspecified, not intractable, without status migrainosus; M19.90 Unspecified osteoarthritis, unspecified site; R03.0 Elevated blood-pressure reading, without diagnosis of hypertension; T43.4X5A Adverse effect of butyrophenone and thiothixene neuroleptics, initial encounter; Z79.899 Other long term (current) drug therapy; Z87.81 Personal history of (healed) traumatic fracture; Z96.7 Presence of other bone and tendon implants; Z98.890 Other specified postprocedural states; Z91.19 Patient's noncompliance with other medical treatment and regimen; Z88.6 Allergy status to analgesic agent; Z88.8 Allergy status to other drugs, medicaments and biological substances
CPT/HCPCS: 80053; 80061; 80306; 81003; 82075; 83036; 84443; 85025; 99285

== ENCOUNTER 2020-12-18 13:51 | Inpatient (IN) | payer MEDICARE, MEDICAID ==
[2020-12-18] MEDS ORDERED: clonazePAM 0.5 MG TAB PO STA (14:16)
[2020-12-18] MEDS ORDERED: GABAPENTIN 400 MG CAP PO STA (14:16)
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
[2020-12-18 15:34] LABS: Amphetamine Screen,Urine Not Detected (NotDetected); Barbiturate Screen,Urine Detected (NotDetected); Benzodiazepines Screen,Urine Not Detected (NotDetected); Cocaine Screen,Urine Not Detected (NotDetected); Methadone Screen, Urine Not Detected (NotDetected); Opiate Screen,Urine Not Detected (NotDetected); Oxycodone Screen, Urine Not Detected (NotDetected); Phencyclidine Screen,Urine Not Detected (NotDetected); Tricyclic Antidepressant,Urine Not Detected (NotDetected); Urn Cannabinoid Scrn Not Detected (NotDetected)
[2020-12-18] MEDS ORDERED: MAG HYDROX/AL HYDROX/SIMETH 30 ML CUP PO PRN (18:11)
[2020-12-18] MEDS ORDERED: MAGNESIUM HYDROXIDE 2,400 MG/10 ML CUP PO PRN (18:11)
[2020-12-18] MEDS: IBUPROFEN 800 MG TAB PO SCH (20:32)
[2020-12-18] MEDS: OLANZapine 7.5 MG TAB PO SCH (20:36)
[2020-12-18] MEDS: BUTALB/APAP/CAFF 50-325-40MG TAB PO PRN (20:38)
[2020-12-18] MEDS: LORazepam 1 MG TAB PO PRN (20:39)
[2020-12-18] MEDS: GABAPENTIN 400 MG CAP PO SCH (21:16)
[2020-12-19] MEDS: GABAPENTIN 400 MG CAP PO SCH ×4 (08:15→21:20)
[2020-12-19] MEDS: IBUPROFEN 800 MG TAB PO SCH ×2 (08:15→16:03)
[2020-12-19] MEDS: NICOTINE 14MG/24HR PATCH TRANSDERM SCH (08:16)
[2020-12-19] MEDS: LORazepam 1 MG TAB PO PRN ×2 (08:17→18:39)
[2020-12-19] MEDS: BUTALB/APAP/CAFF 50-325-40MG TAB PO PRN ×2 (08:17→21:25)
[2020-12-19 10:57] LABS: Basophils % (A) 1 %; Eosinophils # (A) 0.1 k/uL (0-0.7); Eosinophils % (A) 3 %; HCT 36.2 % (39.0-53.0); HGB 12.9 gm/dL (13.0-17.5); Lymphocytes # (A) 0.7 k/uL (1.0-4.8); Lymphocytes % (A) 25 %; MCH 31.3 pg (25.0-35.0); MCHC 35.5 g/dL (31.0-37.0); MCV 88.2 fL (80.0-100.0); Mean Platelet Volume 6.8; Monocytes # (A) 0.1 k/uL (0-1.0); Monocytes % (A) 5 %; Neutrophils # (A) 1.6 k/uL (1.3-7.7); Neutrophils % (A) 64 %; Platelet Count 198 k/uL (150-450); RBC 4.11 m/uL (4.30-5.90); RDW 13.6 % (11.5-15.5); WBC 2.6 k/uL (3.8-10.6)
[2020-12-19 10:59] LABS: ALT 21 U/L (4-49); AST 23 U/L (17-59); African American GFR (CKD) >90 (>60 ml/min/1.73 sqM); Albumin 3.6 g/dL (3.5-5.0); Alkaline Phosphatase 73 U/L (38-126); Anion Gap 2 mmol/L; Blood Urea Nitrogen 12 mg/dL (9-20); Calcium 8.6 mg/dL (8.4-10.2); Carbon Dioxide 27 mmol/L (22-30); Chloride 110 mmol/L (98-107); Cholesterol 151 mg/dL (<200); Glucose 102 mg/dL (74-99); HDL Cholesterol 63 mg/dL (40-60); LDL Cholesterol,Calculated 72 mg/dL (0-99); Non-African American GFR(CKD) >90 (>60 ml/min/1.73 sqM); Potassium 4.7 mmol/L (3.5-5.1); Sodium 139 mmol/L (137-145); Total Bilirubin 0.2 mg/dL (0.2-1.3); Total Protein 6.1 g/dL (6.3-8.2); Triglycerides 80 mg/dL (<150)
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
[2020-12-19] MEDS: hydrOXYzine HCL 25 MG TAB PO PRN ×2 (13:19→21:21)
[2020-12-19 14:26] VITALS: BMI 25.1
[2020-12-19 20:09] LABS: Hemoglobin A1C 4.6 % (4.0-6.0)
[2020-12-19] MEDS: OLANZapine 7.5 MG TAB PO SCH (21:33)
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
[2020-12-20] MEDS: BUTALB/APAP/CAFF 50-325-40MG TAB PO PRN ×2 (08:10→20:33)
[2020-12-20] MEDS: GABAPENTIN 400 MG CAP PO SCH ×4 (08:10→21:27)
[2020-12-20] MEDS: LORazepam 1 MG TAB PO PRN ×2 (08:10→17:00)
[2020-12-20] MEDS: IBUPROFEN 800 MG TAB PO SCH ×2 (08:11→20:31)
[2020-12-20 08:25] VITALS: RESP 16
[2020-12-20] MEDS: NICOTINE 14MG/24HR PATCH TRANSDERM SCH (10:39)
[2020-12-20 11:22] LABS: Basophils % (A) 1 %; Eosinophils # (A) 0.1 k/uL (0-0.7); Eosinophils % (A) 2 %; HCT 36.5 % (39.0-53.0); Lymphocytes # (A) 0.9 k/uL (1.0-4.8); Lymphocytes % (A) 22 %; MCH 31.2 pg (25.0-35.0); MCHC 35.5 g/dL (31.0-37.0); MCV 87.8 fL (80.0-100.0); Mean Platelet Volume 6.8; Monocytes # (A) 0.2 k/uL (0-1.0); Monocytes % (A) 5 %; Neutrophils # (A) 2.9 k/uL (1.3-7.7); Neutrophils % (A) 70 %; Platelet Count 231 k/uL (150-450); RBC 4.15 m/uL (4.30-5.90); RDW 13.5 % (11.5-15.5); WBC 4.1 k/uL (3.8-10.6)
[2020-12-20] MEDS: hydrOXYzine HCL 25 MG TAB PO PRN ×2 (12:15→20:33)
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
[2020-12-20] MEDS: OLANZapine 7.5 MG TAB PO SCH (20:31)
[2020-12-21] MEDS: IBUPROFEN 800 MG TAB PO SCH ×2 (08:16→21:22)
[2020-12-21] MEDS: CYCLOBENZAPRINE 10 MG TAB PO PRN (08:18)
[2020-12-21] MEDS: GABAPENTIN 400 MG CAP PO SCH ×4 (08:18→21:22)
[2020-12-21] MEDS: hydrOXYzine HCL 25 MG TAB PO PRN ×2 (08:18→16:32)
[2020-12-21] MEDS: LORazepam 1 MG TAB PO PRN ×2 (08:19→19:56)
[2020-12-21] MEDS: BUTALB/APAP/CAFF 50-325-40MG TAB PO PRN ×2 (08:19→19:55)
[2020-12-21] MEDS: NICOTINE 14MG/24HR PATCH TRANSDERM SCH (08:19)
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
[2020-12-21 16:06] VITALS: TEMP 98
[2020-12-21] MEDS: OLANZapine 7.5 MG TAB PO SCH (21:22)
[2020-12-22] MEDS: GABAPENTIN 400 MG CAP PO SCH ×4 (07:25→20:02)
[2020-12-22] MEDS: IBUPROFEN 800 MG TAB PO SCH ×2 (07:25→20:03)
[2020-12-22] MEDS: LORazepam 1 MG TAB PO PRN ×2 (07:28→15:36)
[2020-12-22] MEDS: BUTALB/APAP/CAFF 50-325-40MG TAB PO PRN ×2 (07:28→20:03)
[2020-12-22] MEDS: hydrOXYzine HCL 25 MG TAB PO PRN ×2 (08:37→17:40)
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
[2020-12-22] MEDS: CYCLOBENZAPRINE 10 MG TAB PO PRN (12:23)
[2020-12-22] MEDS: OLANZapine 7.5 MG TAB PO SCH (20:04)
[2020-12-23] MEDS: IBUPROFEN 800 MG TAB PO SCH (07:54)
[2020-12-23] MEDS: LORazepam 1 MG TAB PO PRN (07:54)
[2020-12-23] MEDS: GABAPENTIN 400 MG CAP PO SCH ×2 (07:54→12:06)
[2020-12-23] MEDS: BUTALB/APAP/CAFF 50-325-40MG TAB PO PRN (08:46)
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
[2020-12-23 12:09] VITALS: BP 140/74; PULSE 96
== END 2020-12-23 13:10 | disposition other institution (70) | DRG 885 ==
LOC: EC 13:51 → 3MHU 18:10
PROVIDERS: ADMIT Psychiatry & Neurology Psychiatry; ATTEND Psychiatry & Neurology Psychiatry
DX: F20.9 Schizophrenia, unspecified (principal); F12.10 Cannabis abuse, uncomplicated; G40.909 Epilepsy, unspecified, not intractable, without status epilepticus; F32.9 Major depressive disorder, single episode, unspecified; F41.0 Panic disorder [episodic paroxysmal anxiety]; G47.00 Insomnia, unspecified; Z87.81 Personal history of (healed) traumatic fracture; Z91.14 Patient's other noncompliance with medication regimen; Z20.822 Contact with and (suspected) exposure to COVID-19
CPT/HCPCS: 80053; 80061; 80306; 82075; 83036; 84443; 85025; 87635; 99284

== ENCOUNTER 2021-05-28 11:26 | Inpatient (IN) | payer MEDICARE, MEDICAID ==
--- NOTE | 2021-05-28 12:12 | ED ---
General Adult HPI - General Chief complaint: Psychiatric Symptoms Stated complaint: Mental Health Time Seen by Provider: 05/28/21 11:45 Source: patient, police, RN notes reviewed, old records reviewed Mode of arrival: ambulatory Limitations: no limitations - History of Present Illness Initial comments: This is a 30-year-old male who is in snf. Patient comes to the emergency department because he is been refusing to eat or drink and has lost significant weight. According to the staff he is also acting considerably different for have no specific because no one knows anything about him came with him. Patient also has not been taking any of his medications. We will have a report that he has some psychotic behavior but again no one is here to tell us what that behavior is. Patient himself denies any suicidal homicidal ideations. Patient states occasionally he sees scenes from the past and his mind but not at all times. Patient states he is not doing well until does not feel good in snf. Patient denies any recent chest pain palpitations difficulty breathing first breath per patient denies any abdominal pain. Patient denies nausea vomiting diarrhea. - Related Data Home Medications Medication Instructions Recorded Confirmed Lactose-Reduced Food [Ensure 240 ml PO HS 05/28/21 05/28/21 Original] hydrOXYzine pamoate [Vistaril] 50 mg PO BID 05/28/21 05/28/21 Allergies Allergy/AdvReac Type Severity Reaction Status Date / Time acetaminophen Allergy Unknown Verified 05/28/21 14:13 [From Darvocet-N] aripiprazole [From Abilify] Allergy Unknown Verified 05/28/21 14:13 fluphenazine HCl Allergy Unknown Verified 05/28/21 14:13 [From Prolixin] paliperidone [From Invega] Allergy Unknown Verified 05/28/21 14:13 propoxyphene Allergy Unknown Verified 05/28/21 14:13 [From Darvocet-N] risperidone [From Risperdal] Allergy Unknown Verified 05/28/21 14:13 ziprasidone [From Geodon] Allergy Unknown Verified 05/28/21 14:13 fluphenazine enanthate AdvReac Severe Trismus Verified 05/28/21 14:13 [From Prolixin] haloperidol [From Haldol] AdvReac Unknown Verified 05/28/21 14:13 Review of Systems ROS Statement: Those systems with pertinent positive or pertinent negative responses have been documented in the HPI. ROS Other: All systems not noted in ROS Statement are negative. Past Medical History Past Medical History: Seizure Disorder Additional Past Medical History / Comment(s): Schizophrenia, right arm fracture, degenerative disc to lower back, and right wrist plate and screws History of Any Multi-Drug Resistant Organisms: None Reported Past Surgical History: Orthopedic Surgery Additional Past Surgical History / Comment(s): mouth surgery, reduction of right arm fracture. Past Anesthesia/Blood Transfusion Reactions: No Reported Reaction Past Psychological History: Anxiety, Panic Disorder, Schizophrenia Smoking Status: Never smoker Past Alcohol Use History: Rare Past Drug Use History: Marijuana - Past Family History Mother Brother(s) Family Medical History: Unable to Obtain General Exam - General Exam Comments Initial Comments: GENERAL: Patient is well-developed and well-nourished. Patient is nontoxic and well- hydrated and is in mild distress. ENT: Neck is soft and supple. No significant lymphadenopathy is noted. Oropharynx is clear. Moist mucous membranes. Neck has full range of motion without eliciting any pain. EYES: The sclera were anicteric and conjunctiva were pink and moist. Extraocular movements were intact and pupils were equal round and reactive to light. Eyelids were unremarkable. PULMONARY: Unlabored respirations. Good breath sounds bilaterally. No audible rales rhonchi or wheezing was noted. CARDIOVASCULAR: There is a regular rate and rhythm without any murmurs gallops or rubs. ABDOMEN: Soft and nontender with normal bowel sounds. SKIN: Skin is clear with no lesions or rashes and otherwise unremarkable. NEUROLOGIC: Patient is alert and oriented x3. Cranial nerves II through XII are grossly intact. Motor and sensory are also intact. Normal speech, volume and content. Symmetrical smile. MUSCULOSKELETAL: Normal extremities with adequate strength and full range of motion. No lower extremity swelling or edema. No calf tenderness. LYMPHATICS: No significant lymphadenopathy is noted PSYCHIATRIC: Patient has a very flat affect Limitations: no limitations Course Vital Signs 05/28/21 11:42 Temperature 98.0 F Pulse Rate 80 Respiratory 18 Rate Blood Pressure 126/87 O2 Sat by Pulse 97 Oximetry Medical Decision Making - Medical Decision Making EKG shows normal sinus rhythm at 81 bpm AL interval is 114 QRS is 98 QT interval 380 QTC is 441. Patient's EKG shows no ST segment elevation or depression. EKG was compared to old EKG no changes are noted EPS evaluated the patient and determined the patient needed to be admitted. Disposition Clinical Impression: Acute psychosis Disposition: ADMITTED IP TO THIS HOSP Referrals: Anna Gandhi MD [Primary Care Provider] - 1-2 days Time of Disposition: 14:34
[2021-05-28] MEDS ORDERED: MAG HYDROX/AL HYDROX/SIMETH 30 ML CUP PO PRN (17:13)
[2021-05-28] MEDS ORDERED: MAGNESIUM HYDROXIDE 2,400 MG/10 ML CUP PO PRN (17:13)
[2021-05-28] MEDS ORDERED: LORazepam 2 MG/ML INJ IM PRN (17:18)
[2021-05-28] MEDS ORDERED: HALOPERIDOL LACTATE 5 MG/ML 1 ML VIAL IM PRN (17:19)
[2021-05-28] MEDS ORDERED: haloperidoL 5 MG TAB PO PRN (17:20)
[2021-05-28] MEDS: LORazepam 1 MG TAB PO PRN (17:40)
[2021-05-29 06:18] VITALS: RESP 18
[2021-05-29] MEDS: LORazepam 1 MG TAB PO PRN ×2 (07:11→16:28)
[2021-05-29] MEDS: OLANZapine 10 MG TAB PO SCH (07:54)
[2021-05-29] MEDS: NICOTINE 14MG/24HR PATCH TRANSDERM SCH (07:54)
--- NOTE | 2021-05-29 11:53 | P.HP ---
Psychiatric H&P - . H&P Date: 05/29/21 History & Physical: IDENTIFYING DATA: Tomas is a 30-year-old single male who has a chronic and persistent mental illness HISTORY OF PRESENT ILLNESS: The [facility] surgeon's department brought him to the [facility] from care home where he is been incarcerated since August 2021. According to his accompanying petition completed by the social and political studies professor "inmate is not eating and had lost significant weight. level of psychosis makes it difficult to attend to ADL's and basic needs." According to the history obtained by the EPS nurse he is not taking his medication in care home and stop eating. The EPS nurse noted that the ED he appeared confused and disoriented. He was unable to explain the reason for this hospitalization. He perseverated about not receiving his neurological medications including Klonopin, Fioricet, gabapentin and Motrin. He repeatedly requested that I prescribe these medications. When I declined his request he repeatedly asked me to call his neurologist to confirm this medication had been prescribed. I reviewed the records from his last hospitalization and he was prescribed a 1 week supply of Klonopin and gabapentin discharge. However, these medications were not renewed and were likely not dispense while he was in care home. He talked about not eating because he was not getting his medications. At one point during interview he acknowledged that he stopped eating and stopped taking Zyprexa because he wanted to be admitted to the psychiatric unit. He alleged that he told staff that he "needed to be admitted" and complained that that did not pay attention to his request. According to record he lost approximately 17 kg since his last admission in November 2020. Since his admission to the unit he has been compliant with prescribed medications. He has been eating meals and asking nursing for additional food. He complained of feeling depressed hopeless and helpless primarily about his extended incarceration. He appeared not to understand the reason that he had been incarcerated but talked about charges of assault and battery and breaking and entering. He denied experiencing persistent anxiety that interferes with his ability to function. He does not have access to alcohol and drugs. He denied experiencing auditory, visual or olfactory hallucinations. He denied ideas of reference, thought insertion or thought broadcasting. Note that he had marked poverty of content of thought. PAST PSYCHIATRIC HISTORY: He has history of chronic and persistent mental illness diagnosed as schizophrenia and multiple past psychiatric hospitalizations. According to our electronic medical record this is at least his 12th hospitalizations since 2014. PAST MEDICAL HISTORY: According to medical record he has a history of severe seizure disorder treated with Neurontin. ALLERGIES: He reports ALLERGIES to various antipsychotic medications including Abilify, Prolixin, Invega, risperidone, Geodon, Prolixin and Haldol. However, suspect that these are not true ALLERGIC reactions but that he experiences adverse reactions to the medication and does not wish to be prescribed these medications. SUBSTANCE USE HISTORY: His history of marijuana use but has been abstinent since he was Incarcerated. FAMILY PSYCHIATRIC/SUBSTANCE USE HISTORY: Known LEGAL HISTORY: He is been incarcerated since August 2020 for multiple charges including assault and battery and 2 counts of breaking and entering. He will return to care home after he is discharged to complete his sentence. SOCIAL HISTORY: He is single and has no children. Prior to incarceration he was "living with a friend." He is unemployed and receives a disability. MENTAL STATUS EXAM: . He presented as a disheveled appearing 30-year-old male with long rabago and long unkempt Hair. He made eye contact and appeared to attend to the interview. He had no prominent physical abnormalities. He had a flat facial expression. He was alert and oriented to person and place. He had marked psychomotor retardation but no abnormal involuntary movements. His gait was slow but steady. Her speech was not spontaneous. Rate was slow with decreased rhythm and volume. His affect was flat and expressive. He did not express suicidal ideation or wishes. He denied homicidal ideation. He expressed feelings of hopelessness and helplessness primarily with regard to his chronic incarceration. He ruminated about his medications particularly the controlled substances Klonopin and gabapentin. He did not express clear ideas reference, paranoid ideation or delusions. His thinking was concrete but goal oriented he had marked poverty of thought and content of thought. He denied hallucinations did not appear to responding to internal stimuli. Global impression of intellect is average to below. He has limited awareness or understanding of his illness but is accepting of treatment. STRENGTHS: Relatively good physical health, stable housing, stable income, support from community mental health WEAKNESSES: Clinic and persistent mental illness, poor compliance with mental health treatment, legal problems IMPRESSION: He is a 30-year-old single male who has a chronic schizophrenia. He is been incarcerated since August 2020 for multiple charges. While in care home he stopped taking his psychotropic agents, refusing to eat and losing approximate 17 kg. He complained that he does not like being in care home and does understand understand why he has been incarcerated for an extended period of time. He alleged that he told officers that he needed to be hospitalized and appeared to stop taking medication and stopped eating more to be transferred to the hospital. Since admission to the unit is been compliant with prescribed medications and has been eating voraciously. She be treated inpatient basis, she psychopharmacology and multimodal therapy. Unfortunately, he'll return to care home after completely treatment. PRINCIPLE DIAGNOSIS: Schizophrenia chronic with multiple psychiatric hospitalizations, legal problems, weight loss, poor compliance with psychiatric treatment. RECOMMENDATION: Admitted to the psychiatric unit. Safety precautions. Consult medicine for initial physical exam and medical history. 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 Restart olanzapine 10 mg daily and titrated according to clinical response and tolerance. Haldol and/or Ativan when necessary agitation, aggression or acute psychosis. Encourage participation in therapeutic groups and activities as well as meals and diet. Evaluate clinical status response to treatment daily basis. Allergies Allergy/AdvReac Type Severity Reaction Status Date / Time acetaminophen Allergy Unknown Verified 05/28/21 14:13 [From Darvocet-N] aripiprazole [From Abilify] Allergy Unknown Verified 05/28/21 14:13 fluphenazine HCl Allergy Unknown Verified 05/28/21 14:13 [From Prolixin] paliperidone [From Invega] Allergy Unknown Verified 05/28/21 14:13 propoxyphene Allergy Unknown Verified 05/28/21 14:13 [From Darvocet-N] risperidone [From Risperdal] Allergy Unknown Verified 05/28/21 14:13 ziprasidone [From Geodon] Allergy Unknown Verified 05/28/21 14:13 fluphenazine enanthate AdvReac Severe Trismus Verified 05/28/21 14:13 [From Prolixin] haloperidol [From Haldol] AdvReac Unknown Verified 05/28/21 14:13 Vital Signs Temp 97.2 F L 05/29/21 06:09 Pulse 77 05/29/21 06:09 Resp 18 05/29/21 06:09 BP 97/56 05/29/21 06:09 Pulse Ox 98 05/28/21 17:09 Intake & Output 05/28/21 05/29/2105/29/21 18:59 06:59 18:59 Weight 65.8 kg Laboratory Last Values Coronavirus (PCR) Not Detected (Not Detectd) 05/28/21 15:23 05/29/21 11:19
[2021-05-29 14:32] VITALS: BMI 20.2
--- NOTE | 2021-05-29 17:25 | P.CONS ---
History of Present Illness - Reason for Consult Consult date: 05/29/21 Medical management - Chief Complaint Psychiatric symptoms - History of Present Illness 30-year-old male who is in nursing home. Patient comes to the emergency department because he is been refusing to eat or drink and has lost significant weight. According to the staff he is also acting considerably different for have no specific because no one knows anything about him came with him. Patient also maria s not been taking any of his medications. We will have a report that he has some psychotic behavior but again no one is here to tell us what that behavior is. Patient himself denies any suicidal homicidal ideations. Patient states occasionally he sees scenes from the past and his mind but not at all times. Patient states he is not doing well until does not feel good in nursing home. Patient denies any recent chest pain palpitations difficulty breathing first breath per patient denies any abdominal pain. Patient denies nausea vomiting diarrhea. Review of Systems REVIEW OF SYSTEMS: CONSTITUTIONAL: No fever, no malaise, no fatigue. HEENT: No recent visual problems or hearing problems. Denied any sore throat. CARDIOVASCULAR: No chest pain, orthopnea, PND, no palpitations, no syncope. PULMONARY: No shortness of breath, no cough, no hemoptysis. GASTROINTESTINAL: No diarrhea, no nausea, no vomiting, no abdominal pain. NEUROLOGICAL: No headaches, no weakness, no numbness. HEMATOLOGICAL: Denies any bleeding or petechiae. GENITOURINARY: Denies any burning micturition, frequency, or urgency. MUSCULOSKELETAL/RHEUMATOLOGICAL: Denies any joint pain, swelling, or any muscle pain. ENDOCRINE: Denies any polyuria or polydipsia. The rest of the 14-point review of systems is negative. Past Medical History Past Medical History: Seizure Disorder Additional Past Medical History / Comment(s): Schizophrenia, right arm fracture, degenerative disc to lower back, and right wrist plate and screws History of Any Multi-Drug Resistant Organisms: None Reported Past Surgical History: Orthopedic Surgery Additional Past Surgical History / Comment(s): mouth surgery, reduction of right arm fracture. Past Anesthesia/Blood Transfusion Reactions: No Reported Reaction Past Psychological History: Anxiety, Panic Disorder, Schizophrenia Smoking Status: Former smoker Past Alcohol Use History: Rare Past Drug Use History: Marijuana - Past Family History Mother Brother(s) Family Medical History: Unable to Obtain Medications and Allergies Home Medications Medication Instructions Recorded Confirmed Type Lactose-Reduced Food [Ensure 240 ml PO HS 05/28/21 05/28/21 History Original] hydrOXYzine pamoate [Vistaril] 50 mg PO BID 05/28/21 05/28/21 History Allergies Allergy/AdvReac Type Severity Reaction Status Date / Time acetaminophen Allergy Unknown Verified 05/28/21 14:13 [From Darvocet-N] aripiprazole [From Abilify] Allergy Unknown Verified 05/28/21 14:13 fluphenazine HCl Allergy Unknown Verified 05/28/21 14:13 [From Prolixin] paliperidone [From Invega] Allergy Unknown Verified 05/28/21 14:13 propoxyphene Allergy Unknown Verified 05/28/21 14:13 [From Darvocet-N] risperidone [From Risperdal] Allergy Unknown Verified 05/28/21 14:13 ziprasidone [From Geodon] Allergy Unknown Verified 05/28/21 14:13 fluphenazine enanthate AdvReac Severe Trismus Verified 05/28/21 14:13 [From Prolixin] haloperidol [From Haldol] AdvReac Unknown Verified 05/28/21 14:13 Physical Exam Vitals: Vital Signs Temp Pulse Pulse Resp BP BP Pulse Ox 05/29/21 06:09 97.2 F L 77 18 97/56 05/28/21 17:46 98.2 F 73 16 131/89 05/28/21 17:09 98.3 F 83 18 117/81 98 Intake and Output 05/28/21 05/29/21 05/29/21 22:59 06:59 14:59 Other: Weight 65.8 kg Assessment and Plan Assessment: 1. Acute psychosis; your management 2. History of seizure disorder; patient currently not on any antiseizure medication; we'll continue to monitor closely 3. Left wrist pain/osteoarthritis; Tylenol 650 mg when necessary; patient requesting consult with pain management DVT prophylaxis; early ambulation CODE STATUS; full code
[2021-05-30] MEDS: OLANZapine 10 MG TAB PO SCH (07:42)
[2021-05-30] MEDS: NICOTINE 14MG/24HR PATCH TRANSDERM SCH (07:42)
[2021-05-30] MEDS: LORazepam 1 MG TAB PO PRN ×2 (07:43→16:32)
--- NOTE | 2021-05-30 12:39 | P.PN ---
Progress Note - Text Progress Note Date: 05/30/21 Clinical Problems: Schizophrenia chronic with multiple psychiatric hospitalizations, legal problems, weight loss, history of seizure disorder Interim history: I reviewed the medical record and interviewed the patient. Medical consult appreciated. Tomas again asked about prescriptions for Klonopin, Fioricet and gabapentin. I explained that I prescribed Fioricet for headaches and even if we were prescribed Klonopin and gabapentin he will not receive these medication returns to shelter. We have to prescribed medications that would be available to him when he was in shelter. He is been compliant with olanzapine and is posed no management problems. No episodes of behavioral dyscontrol. He is eating meals and nursing reports that he is requesting additional food. He does not attend therapeutic groups and activities he spends his time alone in his room mostly in bed. He does not socialize with staff or peers. He slept 8 hours last night. Mental status exam: He presented as a disheveled appearing 30-year-old male who was lying in bed. He made eye contact and appeared to attend to the interview. He had a flat facial expression. He is alert and oriented to person, place and time. He had marked psychomotor retardation but no abnormal involuntary movements. His speech was not spontaneous and had decreased rate, rhythm and volume. His affect was flat did not express. He did not express suicidal ideation or wishes. He continues feeling hopeless and helpless (primarily about his legal problems and the fact that he has to return to shelter). He did not express ideas reference, paranoid ideation or delusions. He has prominent paranoid his speech and content of thought. He denied hallucinations did not appear to be responding to internal stimuli. Assessment: He has marked negative symptoms of schizophrenia and remains hopeless and distressed over his extended incarceration. However he has been compliant with medications and eating voraciously. Plan: Continue inpatient treatment. Safety precautions. Continue olanzapine 10 mg daily. Ativan or Haldol when necessary for agitation, aggression acute psychosis. The registered medical assistant's monitoring need for antiseizure medication. Encourage participation in therapeutic groups and activities. Monitor intake and compliance. Evaluate clinical status response to treatment daily basis.
[2021-05-31] MEDS: LORazepam 1 MG TAB PO PRN ×3 (03:57→21:33)
[2021-05-31] MEDS: NICOTINE 14MG/24HR PATCH TRANSDERM SCH (08:12)
[2021-05-31] MEDS: OLANZapine 10 MG TAB PO SCH (08:13)
--- NOTE | 2021-05-31 09:38 | P.PN ---
Progress Note - Text Progress Note Date: 05/31/21 Interval History: Patient was seen wandering the hallways and was directable and agreeable to steven barragan with writer editor in the office. Patient appears to have poor hygiene and grooming today and will unkempt hair. He was fairly fixated on his medications and spoke mainly about the controlled medications which she believes that he is on including Klonopin, fioricet and Ativan. He states that he has seizures unless he is on Klonopin. After MAPS was checked patient was last prescribed Klonopin in his last hospitalization in November 2020, was persistent that he gets prescribed this by his [facility] doctor. He was minimizing his need for hospitalization and claims that his mother called the dot compliance coordinator on him at home. He claims that his mood is "fine" and has a constricted affect. He states that he already "served my time" in senior living. Denying any depression today. He states that he slept poorly last night and needed to take Ativan at 3 AM. At this time patient denies any suicidal or homical ideations, intent or plan. Patient denies any auditory, visual hallucinations and denies any paranoia or delusions. Patient denies any side effects from the medications and has been compliant with meds. Mental Status Exam: General Appearance: Patient appears to be unkempt in appearance, disheveled long hair, rabago, stated age is alert, evasive at times and manipulative. Behavior: Patient is calmly seated without any agitated behavior. Speech: Patient's speech is fluent and nonpressured. Soft tone Mood/Affect: Mood is improving mildly, affect is congruent and constricted. Suicidality/Homicidality: Patient denies having any suicidal or homicidal ideation intent or plan. Perceptions: Patient denies any visual hallucinations and denies any auditory hallucinations Though content/process: Focused on his medications. Goal oriented. Not endorsing any delusions. Memory and concentration: AOX3, grossly intact for the purposes of this session Judgment and insight: Chronically poor Assessment Schizophrenia chronic with acute exacerbation legal problems poor compliance with psychiatric treatment Nicotine dependence Plan: -Patient continues to meet criteria for inpatient psychiatric admission for symptom stabilization and safety. Patient has signed adult voluntary form and was placed in patient's chart. -Medications: Increase Zyprexa to 15 mg daily at bedtime for psychosis/insomnia. -When necessary Ativan and Haldol for agitation/aggression. -NRT - nicotine patch -SW on board for discharge planning. Encouraged the patient to participate in milieu. Patient is currently a senior living hold. We will recommend that patient be followed up by the ACT team upon discharge
[2021-05-31] MEDS ORDERED: LACTOSE REDUCED FOOD 400 GM PO SCH (21:00)
[2021-05-31] MEDS ORDERED: OLANZapine 7.5 MG TAB PO SCH (21:00)
[2021-06-01 06:40] VITALS: BP 123/66; PULSE 71; TEMP 97.4
[2021-06-01] MEDS: NICOTINE 14MG/24HR PATCH TRANSDERM SCH (08:23)
[2021-06-01] MEDS: LORazepam 1 MG TAB PO PRN (08:23)
--- NOTE | 2021-06-01 11:19 | P.DS ---
Providers Date of admission: 05/28/21 17:02 Expected date of discharge: 06/01/21 Attending physician: Arron Xiao MD Consults: 05/28/21 17:13 Consult Physician Routine Consulting Provider: Adela Mendosa Consult Reason/Comments: medical management Do you want consulting provider notified?: Yes Primary care physician: Hiram Castillo - Discharge Diagnosis(es) (1) Schizophrenia, chronic with acute exacerbation Current Visit: Yes Status: Acute Priority: High (2) Legal problem Current Visit: Yes Status: Acute Priority: Medium (3) Poor compliance with medication Current Visit: Yes Status: Acute Priority: Medium (4) Nicotine dependence Current Visit: Yes Status: Acute Priority: Low Hospital Course: Admission HPI: Admission note was completed by Dr. Vigil "Tomas is a 30-year-old single male who has a chronic and persistent mental illness. The collection teller's department brought him to the [facility] from custodial where he is been incarcerated since August 2021. According to his accompanying petition completed by the bilingual social worker "inmate is not eating and had lost significant weight. level of psychosis makes it difficult to attend to ADL's and basic needs." According to the history obtained by the EPS nurse he is not taking his medication in custodial and stop eating. The EPS nurse noted that the ED he appeared confused and disoriented. He was unable to explain the reason for this hospitalization. He perseverated about not receiving his neurological medications including Klonopin, Fioricet, gabapentin and Motrin. He repeatedly requested that I prescribe these medications. When I declined his request he repeatedly asked me to call his neurologist to confirm this medication had been prescribed. I reviewed the records from his last hospitalization and he was prescribed a 1 week supply of Klonopin and gabapentin discharge. However, these medications were not renewed and were likely not dispense while he was in custodial. He talked about not eating because he was not getting his medications. At one point during interview he acknowledged that he stopped eating and stopped taking Zyprexa because he wanted to be admitted to the psychiatric unit. He alleged that he told staff that he "needed to be admitted" and complained that that did not pay attention to his request. According to record he lost approximately 17 kg since his last admission in November 2020. Since his admission to the unit he has been compliant with prescribed medications. He has been eating meals and asking nursing for additional food. He complained of feeling depressed hopeless and helpless primarily about his extended incarceration. He appeared not to understand the reason that he had been incarcerated but talked about charges of assault and battery and breaking and entering. He denied experiencing persistent anxiety that interferes with his ability to function. He does not have access to alcohol and drugs. He denied experiencing auditory, visual or olfactory hallucinations. He denied ideas of reference, thought insertion or thought broadcasting. Note that he had marked poverty of content of thought." Hospital course: Upon admission to the unit patient was initially admitted voluntarily as a transfer from the custodial. Patient was however directable and agreeable to commence treatment and signed adult voluntary form. Patient got along well with other patients on the unit and followed unit protocol. Patient was compliant with the medications and denied any side effects throughout hospital course. Patient was started on back on Zyprexa due to having ALLERGIES to several other antipsychotic medications and refusing to take Haldol. Patient was titrated up to a dose of 15 mg of Zyprexa daily at bedtime for psychosis/mood stabilization/insomnia. Patient was fairly focused on medications and obtaining other controlled medications such as benzodiazepines and gabapentin while on the unit however MAPS was checked and patient has not been taking any controlled medications since november 2020. Patient was med seeking and manipulative about his meds and regimen. Patient was also seen by medical team for history and physical exam. Throughout the course of the hospitalization patient gradually improved with regards to mood, anxiety, psychosis, sleep and return back to his baseline level of functioning. On the day of discharge patient denied any case icidal or homicidal ideations intent or plan denied any auditory or visual hallucinations. Patient endorsed wanting to live for his future. The patient denied any access to guns or weapons. Patient denied any paranoia and did not endorse any delusions. Patient does not have a significant history of substance abuse however was counseled on abstaining from all substances including alcohol and marijuana. Patient was also counseled on the medications and need for regular compliance and was encouraged to follow-up with their outpatient appointment for mental health and also for primary care. Prior to discharge, bilingual social worker will reach out to custodial as patient may currently be on a custodial hold for transfer back to serve remaining of his sentence however if this is not the case then SW will reach out to patients gaurdian/mother for other discharge arrangments including going back to live with her vs. going to group home. Patient is already on the ACT team and will be followed closely by them and his [facility] providers. Mental status exam: General Appearance: Patient appears to be thin stated age is alert, concrete, and attempts to be cooperative. Patient introduced to appear to have an unkempt appearance with long hair and a long rabago Behavior: Patient is calmly seated without any agitated behavior. superficial at times. Speech: Patient's speech is fluent and nonpressured. concrete Mood/Affect: Patient reports their mood is "better", affect is congruent and constricted Suicidality/Homicidality: Patient denies having any suicidal or homicidal ideation intent or plan. Perceptions: Patient denies any auditory or visual hallucinations. Though content/process: There is no evidence of any delusional thought content and thought process is linear, concrete. more future oriented. focused on his medications. Memory and concentration: AOX3, grossly intact for the purposes of this session. Can spell "WORLD" backwards correctly. Judgment and insight: chronically poor, however has improved with guarded prognosis Impression: Schizophrenia chronic with acute exacerbation Legal problem Poor medication compliance Nicotine dependence Plan: -Continue with discharge today as patient has improved and stabilized psychiatrically and is not currently an imminent threat to himself and/or others. Patient will remain at chronically elevated risk for harm to self and/or others due to his chronically poor insight and impulsivity. -Continue medications: Zyprexa 15 mg daily at bedtime for psychosis/insomnia. Patient was offered Haldol with the possibility of transferring on to Haldol De canoate to ensure medication compliance however patient refused citing vague side effects that he experienced in the past -Patient was counseled on the need for medication compliance and appropriate f ollow-up at mental health and also primary care for medical issues. Patient verbalized understanding and agreed. -Social work to help arrange for discharge today, patient will likely be discharged back to custodial to serve the remaining of his sentence. If patient has already served his sentence then likely discharge back home with mother/guardian versus group home. Social work also to arrange for patients follow up appointments with [facility] for psychiatric care along with follow up with primary care provider. Patient is already on the act team and will be followed closely by [facility] to ensure compliance and follow-up. -Patient counseled on abstaining from recreational drugs and marijuana and alcohol. Was informed/educated on the adverse effects on their physical and mental health. Patient verbally agreed and understood. -Patient was instructed to return to the hospital or seek immediate medical care if their psychiatric or medical symptoms do worsen or reoccur. Allergies Allergy/AdvReac Type Severity Reaction Status Date / Time acetaminophen Allergy Unknown Verified 05/28/21 14:13 [From Darvocet-N] aripiprazole [From Abilify] Allergy Unknown Verified 05/28/21 14:13 fluphenazine HCl Allergy Unknown Verified 05/28/21 14:13 [From Prolixin] paliperidone [From Invega] Allergy Unknown Verified 05/28/21 14:13 propoxyphene Allergy Unknown Verified 05/28/21 14:13 [From Darvocet-N] risperidone [From Risperdal] Allergy Unknown Verified 05/28/21 14:13 ziprasidone [From Geodon] Allergy Unknown Verified 05/28/21 14:13 fluphenazine enanthate AdvReac Severe Trismus Verified 05/28/21 14:13 [From Prolixin] haloperidol [From Haldol] AdvReac Unknown Verified 05/28/21 14:13 Laboratory Results Coronavirus (PCR) Not Detected (Not Detectd) 05/28/21 15:23 Vital Signs Temp 97.4 F L 06/01/21 06:39 Pulse 71 06/01/21 06:39 Resp 18 05/29/21 06:09 BP 123/66 06/01/21 06:39 Pulse Ox 98 05/28/21 17:09 Patient Condition at Discharge: Stable Plan - Discharge Summary Discharge Rx Participant: No New Discharge Prescriptions: New Nicotine 14Mg/24Hr Patch [Habitrol] 1 patch TRANSDERM DAILY 14 Days patch OLANZapine [ZyPREXA] 15 mg PO HS #30 tablet Continue Lactose-Reduced Food [Ensure Original] 240 ml PO HS Discontinued hydrOXYzine pamoate [Vistaril] 50 mg PO BID Discharge Medication List Lactose-Reduced Food [Ensure Original] 240 ml PO HS 05/28/21 [History] Nicotine 14Mg/24Hr Patch [Habitrol] 1 patch TRANSDERM DAILY 14 Days patch 06/01/21 [Rx] OLANZapine [ZyPREXA] 15 mg PO HS #30 tablet 06/01/21 [Rx] Follow up Appointment(s)/Referral(s): Anna Gandhi MD [Primary Care Provider] - 1-2 days Activity/Diet/Wound Care/Special Instructions: Activity and diet as tolerated. Avoid the use of street drugs and alcohol. Take all medications as prescribed. When you are in need of refills on your medications please contact your medical provider and/or outpatient psychiatrist to have this done. Please go to scheduled outpatient appointment for aftercare treatment. If symptoms return or become worse, call the crisis line at and/or go to the nearest emergency room for evaluation. Discharge Disposition: DC/TRANSFER COURT/LAW
== END 2021-06-01 12:51 | DRG 885 ==
LOC: EC 11:26 → 3MHU 17:02
PROVIDERS: ADMIT Psychiatry & Neurology Psychiatry; ATTEND Psychiatry & Neurology Psychiatry
DX: F20.9 Schizophrenia, unspecified (principal); G40.909 Epilepsy, unspecified, not intractable, without status epilepticus; Z65.3 Problems related to other legal circumstances; F17.200 Nicotine dependence, unspecified, uncomplicated; F41.0 Panic disorder [episodic paroxysmal anxiety]; G47.00 Insomnia, unspecified; M19.90 Unspecified osteoarthritis, unspecified site; Z91.14 Patient's other noncompliance with medication regimen; Z20.822 Contact with and (suspected) exposure to COVID-19
CPT/HCPCS: 82075; 87635; 93005; 99285

== ENCOUNTER 2021-08-05 23:02 | Emergency (ER) | payer MEDICARE, MEDICAID ==
[2021-08-05 23:14] VITALS: TEMP 97.9
--- NOTE | 2021-08-06 01:03 | XR ---
EXAMINATION TYPE: XR chest 1V portable DATE OF EXAM: 08/06/2021 COMPARISON: 01/28/2020 HISTORY: Chest pain TECHNIQUE: Single view FINDINGS: Heart and mediastinum are normal. Lungs are clear. Diaphragm is normal. Bony thorax is inta ct. IMPRESSION: Normal chest. No change.
--- NOTE | 2021-08-06 01:03 | ED ---
Chest Pain HPI - General Chief Complaint: Chest Pain Stated Complaint: Chest Pain Time Seen by Provider: 08/06/21 00:25 Source: patient, RN notes reviewed, old records reviewed Mode of arrival: ambulatory Limitations: no limitations - History of Present Illness Initial Comments: This is a 31-year-old male DF for evaluation of chest pain. Patient does have a strong history of psychiatric illness no chest pain appears to be just some sharp pain right-sided substernal chest pain. His been going on for a few days no change. No shortness of breath no fevers no cough no congestion no other complaints MD Complaint: chest pain -: days(s) (3) Onset: during rest, during exertion Pain Location: substernal, right chest, epigastric Pain Radiation: RUE, back Severity: moderate Severity scale (1-10): 6 Quality: sharp Consistency: intermittent Improves With: nothing Worsens With: nothing Context: other (none) Anginal Symptoms: other (none) Other Symptoms: other (none) Treatments Prior to Arrival: other (none) - Related Data Home Medications Medication Instructions Recorded Confirmed Lactose-Reduced Food [Ensure 240 ml PO HS 05/28/21 05/28/21 Original] Previous Rx's Medication Instructions Recorded Nicotine 14Mg/24Hr Patch [Habitrol] 1 patch TRANSDERM DAILY 14 Days 06/01/21 patch OLANZapine [ZyPREXA] 15 mg PO HS #30 tablet 06/01/21 Allergies Allergy/AdvReac Type Severity Reaction Status Date / Time acetaminophen Allergy Unknown Verified 08/05/21 23:07 [From Darvocet-N] aripiprazole [From Abilify] Allergy Unknown Verified 08/05/21 23:07 fluphenazine HCl Allergy Unknown Verified 08/05/21 23:07 [From Prolixin] paliperidone [From Invega] Allergy Unknown Verified 08/05/21 23:07 propoxyphene Allergy Unknown Verified 08/05/21 23:07 [From Darvocet-N] risperidone [From Risperdal] Allergy Unknown Verified 08/05/21 23:07 ziprasidone [From Geodon] Allergy Unknown Verified 08/05/21 23:07 fluphenazine enanthate AdvReac Severe Trismus Verified 08/05/21 23:07 [From Prolixin] haloperidol [From Haldol] AdvReac Unknown Verified 08/05/21 23:07 Review of Systems ROS Statement: Those systems with pertinent positive or pertinent negative responses have been documented in the HPI. ROS Other: All systems not noted in ROS Statement are negative. EKG Findings - EKG Comments: EKG Findings:: EKG is sinus rhythm 63 MI 160, 06 QTc 421 Past Medical History Past Medical History: Seizure Disorder Additional Past Medical History / Comment(s): Schizophrenia, right arm fracture, degenerative disc to lower back, and right wrist plate and screws History of Any Multi-Drug Resistant Organisms: None Reported Past Surgical History: Orthopedic Surgery Additional Past Surgical History / Comment(s): mouth surgery, reduction of right arm fracture. Past Anesthesia/Blood Transfusion Reactions: No Reported Reaction Past Psychological History: Anxiety, Panic Disorder, Schizophrenia Smoking Status: Former smoker Past Alcohol Use History: Rare Past Drug Use History: Marijuana - Past Family History Mother Brother(s) Family Medical History: Unable to Obtain General Exam Limitations: no limitations General appearance: alert, in no apparent distress Head exam: Present: atraumatic, normocephalic, normal inspection Eye exam: Present: normal appearance, PERRL, EOMI. Absent: scleral icterus, conjunctival injection, periorbital swelling ENT exam: Present: normal exam, mucous membranes moist Neck exam: Present: normal inspection. Absent: tenderness, meningismus, lymphadenopathy Respiratory exam: Present: normal lung sounds bilaterally. Absent: respiratory distress, wheezes, rales, rhonchi, stridor Cardiovascular Exam: Present: regular rate, normal rhythm, normal heart sounds. Absent: systolic murmur, diastolic murmur, rubs, gallop, clicks GI/Abdominal exam: Present: soft, normal bowel sounds. Absent: distended, tenderness, guarding, rebound, rigid Extremities exam: Present: normal inspection, full ROM, normal capillary refill. Absent: tenderness, pedal edema, joint swelling, calf tenderness Back exam: Present: normal inspection Neurological exam: Present: alert, oriented X3, CN II-XII intact Psychiatric exam: Present: normal affect, normal mood Skin exam: Present: warm, dry, intact, normal color. Absent: rash Course Vital Signs 08/05/21 08/06/21 08/06/21 23:07 01:02 02:51 Temperature 97.9 F Pulse Rate 75 88 85 Respiratory 18 18 16 Rate Blood Pressure 139/87 144/81 116/74 O2 Sat by Pulse 100 99 99 Oximetry - Reevaluation(s) Reevaluation #1: Medical records reviewed Patient has significant improvement here in the emergency department Patient informed results and questions answered Reevaluation #2: Studies Chest x-rays negative for acute disease Chest Pain MDM - MDM 31 male with atypical chest pain patient has normal values here in the emergency department patient can be discharged home Disposition Clinical Impression: Chest pain, Atypical chest pain Disposition: HOME SELF-CARE Condition: Good Instructions (If sedation given, give patient instructions): Chest Pain (ED) Is patient prescribed a controlled substance at d/c from ED?: No Referrals: Anna Gandhi MD [Primary Care Provider] - 1-2 days
[2021-08-06 02:42] LABS: Amphetamine Screen,Urine Not Detected (NotDetected); Barbiturate Screen,Urine Not Detected (NotDetected); Benzodiazepines Screen,Urine Not Detected (NotDetected); Cocaine Screen,Urine Not Detected (NotDetected); Methadone Screen, Urine Not Detected (NotDetected); Opiate Screen,Urine Not Detected (NotDetected); Oxycodone Screen, Urine Not Detected (NotDetected); Phencyclidine Screen,Urine Not Detected (NotDetected); Tricyclic Antidepressant,Urine Not Detected (NotDetected); Urn Cannabinoid Scrn Not Detected (NotDetected)
[2021-08-06 02:52] VITALS: BP 116/74; PULSE 85; RESP 16
== END 2021-08-06 02:51 | disposition home or self-care (01) ==
LOC: EC 23:02
DX: R07.2 Precordial pain (principal); R07.89 Other chest pain; R10.13 Epigastric pain; Z87.891 Personal history of nicotine dependence; Z88.6 Allergy status to analgesic agent; Z88.8 Allergy status to other drugs, medicaments and biological substances; Z20.822 Contact with and (suspected) exposure to COVID-19
CPT/HCPCS: 71045; 80306; 82075; 87635; 93005; 99285

== ENCOUNTER 2021-11-19 10:13 | Inpatient (IN) | payer MEDICARE, MEDICAID ==
[2021-11-19 12:20] LABS: Amphetamine Screen,Urine Not Detected (NotDetected); Barbiturate Screen,Urine Not Detected (NotDetected); Benzodiazepines Screen,Urine Not Detected (NotDetected); Cocaine Screen,Urine Not Detected (NotDetected); Methadone Screen, Urine Not Detected (NotDetected); Opiate Screen,Urine Not Detected (NotDetected); Oxycodone Screen, Urine Not Detected (NotDetected); Phencyclidine Screen,Urine Not Detected (NotDetected); Tricyclic Antidepressant,Urine Not Detected (NotDetected); Urn Cannabinoid Scrn Not Detected (NotDetected)
--- NOTE | 2021-11-19 12:26 | ED ---
General Adult HPI - General Chief complaint: Psychiatric Symptoms Stated complaint: Mental Health Time Seen by Provider: 11/19/21 11:17 Source: patient Mode of arrival: ambulatory Limitations: no limitations - History of Present Illness Initial comments: This 31-year-old male with a past medical history of anxiety and schizophrenia presents emergency department for suicidal ideation requesting admitted to the psychiatric unit. Patient states over the last couple of days he has had increased suicidal ideation and states "I feel crazy and just need to go to the third floor." Patient states he has not been taking his medications as prescribed because he has increased stress and states he is going through a lot. Patient states he has had suicidal thoughts in the past, however he has never tried actually commit suicide. Patient states he doesn't have a current plan but just feels increased sadness. Patient requesting to be admitted for his m edications to be sorted out so he can feel better. Patient denies any drug or alcohol use. Patient denies any auditory or visual hallucinations. Patient denies any chest pain, shortness of breath, abdominal pain, nausea, vomiting, headache, blurred vision, change in bowel or bladder, weakness. - Related Data Home Medications Medication Instructions Recorded Confirmed Lactose-Reduced Food [Ensure 240 ml PO HS 05/28/21 05/28/21 Original] Previous Rx's Medication Instructions Recorded Nicotine 14Mg/24Hr Patch [Habitrol] 1 patch TRANSDERM DAILY 14 Days 06/01/21 patch OLANZapine [ZyPREXA] 15 mg PO HS #30 tablet 06/01/21 Allergies Allergy/AdvReac Type Severity Reaction Status Date / Time acetaminophen Allergy Unknown Verified 08/05/21 23:07 [From Darvocet-N] aripiprazole [From Abilify] Allergy Unknown Verified 08/05/21 23:07 fluphenazine HCl Allergy Unknown Verified 08/05/21 23:07 [From Prolixin] paliperidone [From Invega] Allergy Unknown Verified 08/05/21 23:07 propoxyphene Allergy Unknown Verified 08/05/21 23:07 [From Darvocet-N] risperidone [From Risperdal] Allergy Unknown Verified 08/05/21 23:07 ziprasidone [From Geodon] Allergy Unknown Verified 08/05/21 23:07 fluphenazine enanthate AdvReac Severe Trismus Verified 08/05/21 23:07 [From Prolixin] haloperidol [From Haldol] AdvReac Unknown Verified 08/05/21 23:07 Review of Systems ROS Statement: Those systems with pertinent positive or pertinent negative responses have been documented in the HPI. ROS Other: All systems not noted in ROS Statement are negative. Past Medical History Past Medical History: Seizure Disorder Additional Past Medical History / Comment(s): Schizophrenia, right arm fracture, degenerative disc to lower back, and right wrist plate and screws History of Any Multi-Drug Resistant Organisms: None Reported Past Surgical History: Orthopedic Surgery Additional Past Surgical History / Comment(s): mouth surgery, reduction of right arm fracture. Past Anesthesia/Blood Transfusion Reactions: No Reported Reaction Past Psychological History: Anxiety, Panic Disorder, Schizophrenia Smoking Status: Former smoker Past Alcohol Use History: Rare Past Drug Use History: Marijuana - Past Family History Mother Brother(s) Family Medical History: Unable to Obtain General Exam Limitations: no limitations General appearance: alert, in no apparent distress Head exam: Present: atraumatic, normocephalic Eye exam: Present: normal appearance, PERRL, EOMI Pupils: Present: normal accommodation ENT exam: Present: mucous membranes moist Neck exam: Present: full ROM Respiratory exam: Present: normal lung sounds bilaterally. Absent: respiratory distress, wheezes, rales, rhonchi, stridor Cardiovascular Exam: Present: regular rate, normal rhythm, normal heart sounds. Absent: systolic murmur, diastolic murmur, rubs, gallop, clicks GI/Abdominal exam: Present: soft, normal bowel sounds. Absent: distended, tenderness, guarding, rebound, rigid Extremities exam: Present: normal inspection, full ROM, normal capillary refill. Absent: tenderness, pedal edema, joint swelling, calf tenderness Back exam: Present: full ROM. Absent: CVA tenderness (R), CVA tenderness (L), paraspinal tenderness, vertebral tenderness Neurological exam: Present: alert, oriented X3, CN II-XII intact, normal gait Psychiatric exam: Present: normal mood, depressed, anxious (Patient standing up, walking around room) Skin exam: Present: warm, dry, intact, normal color. Absent: rash Course Vital Signs 11/19/21 10:20 Temperature 98.2 F Pulse Rate 104 H Respiratory 18 Rate Blood Pressure 124/90 O2 Sat by Pulse 98 Oximetry Medical Decision Making - Medical Decision Making This 31-year-old male presents emergency department for psychiatric evaluation. Urine unremarkable. Patient was having suicidal ideation and thoughts. Patient requesting to be admitted to the psychiatric floor for his medications to be sorted out and for him to feel less depressed. EPS nurse Demetrice assessed patient and agreed that the patient needed to be admitted for further workup, treatment and medication stabilization. Patient did sign himself in to the psychiatric floor and agreed to plan. Patient verbally agreed to plan. - Lab Data Lab Results 11/19/21 Range/Units 11:40 Urine Opiates Screen Not Detected (NotDetected) Ur Oxycodone Screen Not Detected (NotDetected) Urine Methadone Screen Not Detected (NotDetected) Ur Propoxyphene Screen Not Detected (NotDetected) Ur Barbiturates Screen Not Detected (NotDetected) U Tricyclic Antidepress Not Detected (NotDetected) Ur Phencyclidine Scrn Not Detected (NotDetected) Ur Amphetamines Screen Not Detected (NotDetected) U Methamphetamines Scrn Not Detected (NotDetected) U Benzodiazepines Scrn Not Detected (NotDetected) Urine Cocaine Screen Not Detected (NotDetected) U Marijuana (THC) Screen Not Detected (NotDetected) Disposition Clinical Impression: Schizophrenia, Mood changes Disposition: ADMITTED IP TO THIS [facility] Condition: Serious Referrals: Anna Gandhi MD [Primary Care Provider] - 1-2 days Time of Disposition: 12:30
[2021-11-19] MEDS ORDERED: MAGNESIUM HYDROXIDE 2,400 MG/10 ML CUP PO PRN (14:18)
[2021-11-19] MEDS ORDERED: HALOPERIDOL LACTATE 5 MG/ML 1 ML VIAL IM PRN (14:18)
[2021-11-19] MEDS ORDERED: MAG HYDROX/AL HYDROX/SIMETH 30 ML CUP PO PRN (14:18)
[2021-11-19] MEDS ORDERED: haloperidoL 5 MG TAB PO PRN (14:22)
[2021-11-19] MEDS ORDERED: LORazepam 2 MG/ML INJ IM PRN (14:23)
[2021-11-19] MEDS ORDERED: OLANZapine 10 MG VIAL IM PRN (14:29)
[2021-11-19 14:53] VITALS: RESP 16
[2021-11-19] MEDS: LORazepam 1 MG TAB PO PRN (15:04)
[2021-11-19] MEDS: OLANZapine 5 MG TAB PO PRN (15:26)
[2021-11-19] MEDS ORDERED: OLANZapine 10 MG TAB PO SCH ×2 (16:00→22:00)
[2021-11-19] MEDS: ACETAMINOPHEN TAB 325 MG TAB PO PRN (18:19)
[2021-11-20] MEDS: NICOTINE 14MG/24HR PATCH TRANSDERM SCH (08:03)
[2021-11-20] MEDS: LORazepam 1 MG TAB PO PRN ×2 (08:04→16:10)
[2021-11-20] MEDS: ACETAMINOPHEN TAB 325 MG TAB PO PRN ×2 (08:55→16:11)
[2021-11-20] MEDS: OLANZapine 5 MG TAB PO PRN (08:55)
--- NOTE | 2021-11-20 13:15 | P.HP ---
Psychiatric H&P - . H&P Date: 11/20/21 History & Physical: Allergies Allergy/AdvReac Type Severity Reaction Status Date / Time aripiprazole [From Abilify] Allergy Unknown Verified 11/19/21 13:24 fluphenazine HCl Allergy Unknown Verified 11/19/21 13:24 [From Prolixin] paliperidone [From Invega] Allergy Unknown Verified 11/19/21 13:24 propoxyphene Allergy Unknown Verified 11/19/21 13:24 [From Darvocet-N] risperidone [From Risperdal] Allergy Unknown Verified 11/19/21 13:24 ziprasidone [From Geodon] Allergy Unknown Verified 11/19/21 13:24 fluphenazine enanthate AdvReac Severe Trismus Verified 11/19/21 13:24 [From Prolixin] haloperidol [From Haldol] AdvReac Unknown Verified 11/19/21 13:24 Vital Signs Temp 97.6 F 11/20/21 07:10 Pulse 104 H 11/20/21 07:10 Resp 16 11/20/21 07:10 BP 109/63 11/20/21 07:10 Pulse Ox 98 11/19/21 10:20 Intake & Output 11/19/21 11/20/21 11/20/21 18:59 06:59 18:59 Weight 74.843 kg Laboratory Last Values Urine Opiates Screen Not Detected (NotDetected) 11/19/21 11:40 Ur Oxycodone Screen Not Detected (NotDetected) 11/19/21 11:40 Urine Methadone Screen Not Detected (NotDetected) 11/19/21 11:40 Ur Propoxyphene Screen Not Detected (NotDetected) 11/19/21 11:40 Ur Barbiturates Screen Not Detected (NotDetected) 11/19/21 11:40 U Tricyclic Antidepress Not Detected (NotDetected) 11/19/21 11:40 Ur Phencyclidine Scrn Not Detected (NotDetected) 11/19/21 11:40 Ur Amphetamines Screen Not Detected (NotDetected) 11/19/21 11:40 U Methamphetamines Scrn Not Detected (NotDetected) 11/19/21 11:40 U Benzodiazepines Scrn Not Detected (NotDetected) 11/19/21 11:40 Urine Cocaine Screen Not Detected (NotDetected) 11/19/21 11:40 U Marijuana (THC) Screen Not Detected (NotDetected) 11/19/21 11:40 Coronavirus (PCR) Not Detected (Not Detectd) 11/19/21 12:20 11/20/21 13:01 Chief complaint: I was feeling lost and have not been on my medications. It has been a while that I stopped taking my medications. History of present illness: This patient stated that that he has been struggling with mental illness ever since he was a small child. He has a high anxiety problems and he freaks out and starts shaking and has heart palpitations. He stated he was not feeling himself and was having the suicidal thoughts ever sinc e he came out of custodial. He has been in and out of custodial since 2019. This 31-year-old male with a past medical history of anxiety and schizophrenia presented to emergency department for suicidal ideation requesting admission to the psychiatric unit. Patient states over the last couple of days he has had increased suicidal ideation and states "I feel crazy and just need to go to the third floor." Patient states he has not been taking his medications as prescribed because he has increased stress and states he is going through a lot. Patient states he has had suicidal thoughts in the past, however he has never tried actually commit suicide. Patient states he doesn't have a current plan but just feels increased sadness. Patient requesting to be admitted for his medications to be sorted out so he can feel better. Patient denies any drug or alcohol use. Patient denies any auditory or visual hallucinations. Past psychiatric history: Patient has a history of anxiety and psychosis for a l munir period of time. He has been admitted to this hospital on a psychiatric unit before and has been here for 6 times according to him. Substance abuse history: He stated he does smoke weed but denies any other history of alcohol or drug abuse. Medical history: He stated he has had seizures because he went off of the medication but denies having any medical problems. Family history: he denies any history of mental illness in the family. He denies any history of drug or alcohol problem in the family. He denies any history of suicide in the family. Social history: He stated he grew up with mom and dad and went to school up until senior year of high school. He has no college education. He has held couple of jobs long time ago according to him. He stated he is on Social Security disability and his mother got him on it. Psychological trauma: He denies any history of physical, emotional or sexual abuse ever. Mental status: this patient appears to be of his stated age and he speaks in a very low monotonous voice. He is quite lethargic and it appears that he has lost weight. He has psychomotor retardation and his hygiene and grooming is poor and he was dressed in hospital gown. His behavior is cooperative and he described his mood as depressed. He denies having any auditory visual or any other types of hallucinations. He denies any delusions. He does not have a loose associations of flight of ideas or any other disorder of thought process. He is able to concentrate on things and his memory for recent and remote past is fair. He has very poor insight into his problems and he minimizes his psychiatric illness and his judgment is impaired. His cognition is intact. Diagnostic impression: Schizoaffective disorder Anxiety disorder not otherwise specified History of seizure Treatment recommendations: This patient will be placed back on his medications. He will be encouraged to participate in milieu therapy and activity therapy on the unit as scheduled for him. He will have ongoing case management services. 11/20/21 13:05
[2021-11-20] MEDS: hydrOXYzine pamoate 25 MG CAP PO SCH ×3 (13:43→20:01)
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
[2021-11-20] MEDS: clonazePAM 0.5 MG TAB PO SCH (20:00)
[2021-11-20] MEDS: OLANZapine 10 MG TAB PO SCH (20:01)
[2021-11-20] MEDS ORDERED: OLANZapine 10 MG TAB PO SCH (21:00)
[2021-11-21] MEDS: clonazePAM 0.5 MG TAB PO SCH ×2 (08:19→20:08)
[2021-11-21] MEDS: hydrOXYzine pamoate 25 MG CAP PO SCH ×4 (08:19→21:13)
[2021-11-21] MEDS: OLANZapine 10 MG TAB PO SCH ×2 (08:20→20:08)
[2021-11-21] MEDS: NICOTINE 14MG/24HR PATCH TRANSDERM SCH (08:21)
[2021-11-21] MEDS: ACETAMINOPHEN TAB 325 MG TAB PO PRN ×3 (08:48→21:14)
--- NOTE | 2021-11-21 11:56 | P.PN ---
Progress Note - Text Progress Note Date: 11/21/21 Interval History: Patient was seen in my office and was directable and agreeable to speak with entry writer in the office. He was taking Neurontin 800 mg 4 times a day prior to coming to Hospital for anxiety. He is wandering around the hallways. He is very apologetic for no obvious reasons. He can be seen wandering around the hallways most of the day. It appears as if he is responding to some unknown internal stimuli.. At this time patient denies any suicidal or homical id eations, intent or plan. Patient denies any auditory, visual hallucinations and denies any paranoia or delusions. Patient denies any side effects from the medications and has been compliant with meds. Mental Status Exam: General Appearance: Patient appears to be stated age is alert, directable, and cooperative. Behavior: Patient is calmly seated without any agitated behavior. Speech: Patient's speech is fluent and nonpressured. Mood/Affect: Mood is improving mildly, affect is congruent and constricted. Suicidality/Homicidality: Patient denies having any suicidal or homicidal ideation intent or plan. Perceptions: Patient denies any visual hallucinations and denies any auditory hallucinations Though content/process: There is no evidence of any delusional thought content and thought process is linear and goal-directed. Memory and concentration: AOX3, grossly intact for the purposes of this session Judgment and insight: Improving mildly Assessment Patient continues to show symptoms of psychosis necessitating ongoing hospitalization Plan: -Patient continues to meet criteria for inpatient psychiatric admission for symptom stabilization and safety. -Medications: Continue medication as before and I will review his status of her Neurontin. -When necessary Ativan and Haldol for agitation/aggression. -SW on board for discharge planning. Encouraged the patient to participate in milieu.
[2021-11-21] MEDS: GABAPENTIN 400 MG CAP PO SCH ×2 (12:21→20:08)
[2021-11-21] MEDS: LORazepam 1 MG TAB PO PRN (13:58)
[2021-11-22 07:59] VITALS: BP 117/78; PULSE 112; TEMP 97.4
[2021-11-22] MEDS: NICOTINE 14MG/24HR PATCH TRANSDERM SCH (07:59)
[2021-11-22] MEDS: GABAPENTIN 400 MG CAP PO SCH ×3 (08:00→20:22)
[2021-11-22] MEDS: clonazePAM 0.5 MG TAB PO SCH ×2 (08:01→20:22)
[2021-11-22] MEDS: hydrOXYzine pamoate 25 MG CAP PO SCH ×4 (08:01→20:22)
[2021-11-22] MEDS: OLANZapine 10 MG TAB PO SCH ×2 (08:01→20:22)
[2021-11-22] MEDS: ACETAMINOPHEN TAB 325 MG TAB PO PRN ×2 (09:04→17:00)
--- NOTE | 2021-11-22 13:31 | P.PN ---
Progress Note - Text Progress Note Date: 11/22/21 Interval History: Patient was seen wandering the hallways and was directable and agreeable to speak with display card writer in the office. Patient continues to be primarily fixated on controlled substance medication. He is asking if he is able to have an increase his benzodiazepine medication as he reports significant anxiety. When informed that this would not be the case, the patient states that he is okay if his gabapentin was increased instead. The patient is currently not reporting any homicidal ideation, intention,/or plan. He does report that he feels suicidal due to feeling like he has numerous stressors currently ongoing and that his anxiety continues to be uncontrolled. He is however not reporting any auditory or visual hallucinations. He is not reporting any paranoia or delusions. The patient has been adherent with his medications and has been tolerating them well. No reported issues regarding his sleep or his appetite. Mental Status Exam: General Appearance: Patient appears to be stated age is alert, directable, and cooperative. Behavior: Patient is calmly seated without any agitated behavior. Psychomotor slowing appears to be somewhat evident. Speech: Patient's speech is fluent and nonpressured. Monotone. Repetitive. Mood/Affect: Mood is improving mildly, affect is congruent and blunted. Suicidality/Homicidality: Patient denies having any suicidal or homicidal ideation intent or plan. Perceptions: Patient denies any visual hallucinations and denies any auditory hallucinations Though content/process: There is no evidence of any delusional thought content and thought process is linear and goal-directed. Patient is fixated on recei ving controlled substance medication. Memory and concentration: AOX3, grossly intact for the purposes of this session Judgment and insight: Improving mildly Vital Signs Temp 97.4 F L 11/22/21 07:58 Pulse 112 H 11/22/21 07:58 Resp 16 11/22/21 07:58 BP 117/78 11/22/21 07:58 Pulse Ox 96 11/22/21 07:58 Intake & Output 11/21/21 11/22/21 11/22/21 18:59 06:59 18:59 Weight 67 kg Assessment Schizoaffective disorder Generalized anxiety disorder Seizure disorder Plan: -Patient continues to meet criteria for inpatient psychiatric admission for symptom stabilization and safety. Patient has signed adult voluntary form and medication consent and was placed in patient's chart. -Medications: Continue Zyprexa 10 mg by mouth twice a day for psychosis and mood stabilization Continue Klonopin 0.5 mg by mouth twice a day for anxiety Continue gabapentin 800 mg by mouth 3 times a day for off label use for anxiety Continue Vistaril 25 mg by mouth 4 times a day for anxiety -When necessary Ativan and Zyprexa for agitation/aggression. -NRT - nicotine patch -SW on board for discharge planning. Encouraged the patient to participate in milieu.
[2021-11-23] MEDS: hydrOXYzine pamoate 25 MG CAP PO SCH ×4 (08:01→20:21)
[2021-11-23] MEDS: OLANZapine 10 MG TAB PO SCH ×2 (08:01→20:21)
[2021-11-23] MEDS: GABAPENTIN 400 MG CAP PO SCH ×3 (08:01→20:21)
[2021-11-23] MEDS: NICOTINE 14MG/24HR PATCH TRANSDERM SCH (08:01)
[2021-11-23] MEDS: clonazePAM 0.5 MG TAB PO SCH ×2 (08:01→20:21)
[2021-11-23] MEDS: ACETAMINOPHEN TAB 325 MG TAB PO PRN ×3 (08:03→20:22)
--- NOTE | 2021-11-23 12:25 | P.DS ---
Providers Date of admission: 11/19/21 14:09 Expected date of discharge: 11/23/21 Attending physician: Lincoln Cote MD Consults: 11/19/21 14:18 Consult Physician Routine Consulting Provider: Adela Mendosa Consult Reason/Comments: medical management Do you want consulting provider notified?: Yes Primary care physician: Hiram Castillo - Discharge Diagnosis(es) (1) Schizophrenia Current Visit: Yes Status: Acute Priority: High (2) Generalized anxiety disorder Current Visit: Yes Status: Chronic Priority: Medium Hospital Course: Admission HPI: Initial psychiatric evaluation was completed by Dr. Mejia on 11/20/2021 who wrote: "Chief complaint: I was feeling lost and have not been on my medications. It has been a while that I stopped taking my medications. History of present illness: This patient stated that that he has been struggling with mental illness ever since he was a small child. He has a high anxiety problems and he freaks out and starts shaking and has heart palpitations. He stated he was not feeling himself and was having the suicidal thoughts ever since he came out of [facility]. He has been in and out of [facility] since 2019. This 31-y ear-old male with a past medical history of anxiety and schizophrenia presented to emergency department for suicidal ideation requesting admission to the psychiatric unit. Patient states over the last couple of days he has had increased suicidal ideation and states "I feel crazy and just need to go to the third floor." Patient states he has not been taking his medications as prescribed because he has increased stress and states he is going through a lot. Patient states he has had suicidal thoughts in the past, however he has never tried actually commit suicide. Patient states he doesn't have a current plan but just feels increased sadness. Patient requesting to be admitted for his medications to be sorted out so he can feel better. Patient denies any drug or alcohol use. Patient denies any auditory or visual hallucinations. Past psychiatric history: Patient has a history of anxiety and psychosis for a long period of time. He has been admitted to this hospital on a psychiatric unit before and has been here for 6 times according to him. Substance abuse history: He stated he does smoke weed but denies any other history of alcohol or drug abuse. Medical history: He stated he has had seizures because he went off of the medication but denies having any medical problems. Family history: he denies any history of mental illness in the family. He denies any history of drug or alcohol problem in the family. He denies any history of suicide in the family. Social history: He stated he grew up with mom and dad and went to school up until senior year of high school. He has no college education. He has held couple of jobs long time ago according to him. He stated he is on Social Security disability and his mother got him on it. Psychological trauma: He denies any history of physical, emotional or sexual abuse ever." Hospital course: Upon admission to the unit patient was initially presenting with a very low monotonous voice and appeared to be quite lethargic with significant psychomotor retardation and poor hygiene and grooming. He did endorse significant symptoms of depression.. Patient was however directable and agreeable to commence treatment. Patient got along well with other patients on the unit and followed unit protocol. Patient was compliant with the medications and denied any side effects throughout hospital course. Patient was started on his previous home medications that were discontinued when he was in [facility] including Zyprexa, gabapentin, Klonopin, and Vistaril. On this regimen, the patient reported significant improvement in regards to his mood. He did report that his anxiety was better. The patient was fixated on receiving a higher dose of gabapentin and more Klonopin was counseled at length that this is not necessary as the pa michelle does not present with any significant psychomotor agitation or anxiety symptoms while present on the unit. His gabapentin was increased close to to his home dose. The patient displayed significant improvement on these medications and was much more spontaneous with staff and peers. He was out of his room more and more social in the milieu. On the day of discharge, the patient is not reporting any suicidal or homicidal ideation, intention, and/or plan. He is not reporting any auditory or visual hallucinations. He is not reporting any paranoia or other delusions. The patient denies any access to firearms or other weapons. The patient has been in adherent with his medications and is not reporting any significant side effects at this time. The patient did express a desire to stay on the unit for one more week however was informed that since he no longer met any criteria for continued inpatient psychiatric hospitalization, he was subsequently discharged. Mental status exam: General Appearance: Patient appears to be stated age is alert, pleasant, and cooperative. Patient is in no acute distress and has slightly disheveled hygiene and grooming Behavior: Patient is calmly seated without any agitated behavior. Speech: Patient's speech is fluent and nonpressured. Mood/Affect: Patient reports their mood is "doing okay, but I would like to stay week though", affect is constricted however euthymic. Suicidality/Homicidality: Patient denies having any suicidal or homicidal ideation intent or plan. Perceptions: Patient denies any auditory or visual hallucinations. Though content/process: There is no evidence of any delusional thought content and thought process is linear and goal-directed. Memory and concentration: AOX3, grossly intact for the purposes of this session. Can spell "WORLD" backwards correctly. Judgment and insight: Improved with guarded prognosis Vital Signs Temp 97.4 F L 11/22/21 07:58 Pulse 112 H 11/22/21 07:58 Resp 16 11/22/21 07:58 BP 117/78 11/22/21 07:58 Pulse Ox 96 11/22/21 07:58 Impression: Schizophrenia Generalized anxiety disorder Plan: -Continue with discharge today as patient has improved and stabilized psychiatrically and is not currently an imminent threat to himself and/or others. Patient will remain at chronically elevated risk for harm to self and/or others due to his homelessness, criminal history, and history of substance abuse. -Continue medications: We will provide the patient with Klonopin 0.5 mg by mouth twice a day for 3 days only for management of acute anxiety in the context of recent discharge from [facility] and reintroduction back into society Gabapentin 800 mg by mouth 3 times a day for off label use for anxiety Vistaril 25 mg by mouth 4 times a day for anxiety and Zyprexa 10 mg by mouth twice a day for schizoaffective disorder -Patient was counseled on the need for medication compliance and appropriate follow-up at mental health and also primary care for medical issues. Patient verbalized understanding and agreed. -Social work to arrange for and conduct family meeting to ensure safety upon discharge and answer any questions/concerns. Social work also to arrange for patients follow up appointments for psychiatric care along with follow up with primary care provider. -Patient counseled on abstaining from recreational drugs and marijuana and alcohol. Was informed/educated on the adverse effects on their physical and mental health. Patient verbally agreed and understood. Patient was offered substance abuse treatment however declined at this time. -Patient was instructed to return to the hospital or seek immediate medical care if their psychiatric or medical symptoms do worsen or reoccur. -Psychoeducation and supportive therapy provided to patient. Risks and benefits of pharmacological treatment versus the risks and benefits of nontreatment weight and discussed. Informed consent discussion held. Common side effects of psychotropics discussed such as, but not limited to headache, GI disturbance, sexual dysfunction, movement disorders, sedation, and orthostatic hypotension. Life threatening and blackbox warnings of prescribed medications also discussed. Potential risks of operating a vehicle or heavy machinery discussed with patient at length. Advised on importance of compliance and a reliable and responsible manner. Patient advised to review FDA consumer labeling of all medications prior to taking. Patient verbalized understanding of potential risks, and agrees with current treatment plan. Patient advised to medically contact physician/emergency personnel if any acute changes in condition occur. Laboratory Results Urine Opiates Screen Not Detected (NotDetected) 11/19/21 11:40 Ur Oxycodone Screen Not Detected (NotDetected) 11/19/21 11:40 Urine Methadone Screen Not Detected (NotDetected) 11/19/21 11:40 Ur Propoxyphene Screen Not Detected (NotDetected) 11/19/21 11:40 Ur Barbiturates Screen Not Detected (NotDetected) 11/19/21 11:40 U Tricyclic Antidepress Not Detected (NotDetected) 11/19/21 11:40 Ur Phencyclidine Scrn Not Detected (NotDetected) 11/19/21 11:40 Ur Amphetamines Screen Not Detected (NotDetected) 11/19/21 11:40 U Methamphetamines Scrn Not Detected (NotDetected) 11/19/21 11:40 U Benzodiazepines Scrn Not Detected (NotDetected) 11/19/21 11:40 Urine Cocaine Screen Not Detected (NotDetected) 11/19/21 11:40 U Marijuana (THC) Screen Not Detected (NotDetected) 11/19/21 11:40 Coronavirus (PCR) Not Detected (Not Detectd) 11/19/21 12:20 Allergies Allergy/AdvReac Type Severity Reaction Status Date / Time aripiprazole [From Abilify] Allergy Unknown Verified 11/19/21 13:24 fluphenazine HCl Allergy Unknown Verified 11/19/21 13:24 [From Prolixin] paliperidone [From Invega] Allergy Unknown Verified 11/19/21 13:24 propoxyphene Allergy Unknown Verified 11/19/21 13:24 [From Darvocet-N] risperidone [From Risperdal] Allergy Unknown Verified 11/19/21 13:24 ziprasidone [From Geodon] Allergy Unknown Verified 11/19/21 13:24 fluphenazine enanthate AdvReac Severe Trismus Verified 11/19/21 13:24 [From Prolixin] haloperidol [From Haldol] AdvReac Unknown Verified 11/19/21 13:24 Patient Condition at Discharge: Stable Plan - Discharge Summary Discharge Rx Participant: No New Discharge Prescriptions: New clonazePAM [KlonoPIN] 0.5 mg PO BID 3 Days tab Gabapentin [Neurontin] 800 mg PO TID 30 Days cap hydrOXYzine pamoate [Vistaril] 25 mg PO QID 30 Days cap OLANZapine [ZyPREXA] 10 mg PO BID 30 Days tab Discontinued hydrOXYzine HCL [Atarax] 50 mg PO TID PRN PRN Reason: Anxiety OLANZapine [ZyPREXA] 10 mg PO HS Discharge Medication List Gabapentin [Neurontin] 800 mg PO TID 30 Days cap 11/23/21 [Rx] OLANZapine [ZyPREXA] 10 mg PO BID 30 Days tab 11/23/21 [Rx] clonazePAM [KlonoPIN] 0.5 mg PO BID 3 Days tab 11/23/21 [Rx] hydrOXYzine pamoate [Vistaril] 25 mg PO QID 30 Days cap 11/23/21 [Rx] Follow up Appointment(s)/Referral(s): Anna Gandhi MD [Primary Care Provider] - 1-2 days Patient Instructions/Handouts: Stress (DC), Depression (DC), Suicide Prevention (DC) Activity/Diet/Wound Care/Special Instructions: Activity and diet as tolerated. Avoid the use of street drugs and alcohol. Take all medications as prescribed. When you are in need of refills on your medications please contact your medical provider and/or outpatient psychiatrist to have this done. Please go to scheduled outpatient appointment for aftercare treatment. If symptoms return or become worse, call the crisis line at [phone] and/or go to the nearest emergency room for evaluation Discharge Disposition: HOME SELF-CARE
[2021-11-23] MEDS: LORazepam 1 MG TAB PO PRN (16:45)
[2021-11-24] MEDS: NICOTINE 14MG/24HR PATCH TRANSDERM SCH (08:13)
[2021-11-24] MEDS: clonazePAM 0.5 MG TAB PO SCH (08:15)
[2021-11-24] MEDS: GABAPENTIN 400 MG CAP PO SCH (08:15)
[2021-11-24] MEDS: hydrOXYzine pamoate 25 MG CAP PO SCH ×2 (08:15→12:55)
[2021-11-24] MEDS: OLANZapine 10 MG TAB PO SCH (08:15)
[2021-11-24] MEDS: ACETAMINOPHEN TAB 325 MG TAB PO PRN (08:18)
--- NOTE | 2021-11-24 11:08 | P.DS ---
Providers Date of admission: 11/19/21 14:09 Expected date of discharge: 11/24/21 Attending physician: Lincoln Cote MD Consults: 11/19/21 14:18 Consult Physician Routine Consulting Provider: Adela Mendosa Consult Reason/Comments: medical management Do you want consulting provider notified?: Yes Primary care physician: Hiram Castillo - Discharge Diagnosis(es) (1) Schizophrenia Current Visit: Yes Status: Acute Priority: High (2) Generalized anxiety disorder Current Visit: Yes Status: Chronic Priority: Medium Hospital Course: Admission HPI: Initial psychiatric evaluation was completed by Dr. Mejia on 11/20/2021 who wrote: "Chief complaint: I was feeling lost and have not been on my medications. It has been a while that I stopped taking my medications. History of present illness: This patient stated that that he has been struggling with mental illness ever since he was a small child. He has a high anxiety problems and he freaks out and starts shaking and has heart palpitations. He stated he was not feeling himself and was having the suicidal thoughts ever since he came out of [facility]. He has been in and out of [facility] since 2019. This 31-y ear-old male with a past medical history of anxiety and schizophrenia presented to emergency department for suicidal ideation requesting admission to the psychiatric unit. Patient states over the last couple of days he has had increased suicidal ideation and states "I feel crazy and just need to go to the third floor." Patient states he has not been taking his medications as prescribed because he has increased stress and states he is going through a lot. Patient states he has had suicidal thoughts in the past, however he has never tried actually commit suicide. Patient states he doesn't have a current plan but just feels increased sadness. Patient requesting to be admitted for his medications to be sorted out so he can feel better. Patient denies any drug or alcohol use. Patient denies any auditory or visual hallucinations. Past psychiatric history: Patient has a history of anxiety and psychosis for a long period of time. He has been admitted to this hospital on a psychiatric unit before and has been here for 6 times according to him. Substance abuse history: He stated he does smoke weed but denies any other history of alcohol or drug abuse. Medical history: He stated he has had seizures because he went off of the medication but denies having any medical problems. Family history: he denies any history of mental illness in the family. He denies any history of drug or alcohol problem in the family. He denies any history of suicide in the family. Social history: He stated he grew up with mom and dad and went to school up until senior year of high school. He has no college education. He has held couple of jobs long time ago according to him. He stated he is on Social Security disability and his mother got him on it. Psychological trauma: He denies any history of physical, emotional or sexual abuse ever." Hospital course: Upon admission to the unit patient was initially presenting with a very low monotonous voice and appeared to be quite lethargic with significant psychomotor retardation and poor hygiene and grooming. He did endorse significant symptoms of depression.. Patient was however directable and agreeable to commence treatment. Patient got along well with other patients on the unit and followed unit protocol. Patient was compliant with the medications and denied any side effects throughout hospital course. Patient was started on his previous home medications that were discontinued when he was in [facility] including Zyprexa, gabapentin, Klonopin, and Vistaril. On this regimen, the patient reported significant improvement in regards to his mood. He did report that his anxiety was better. The patient was fixated on receiving a higher dose of gabapentin and more Klonopin was counseled at length that this is not necessary as the pa michelle does not present with any significant psychomotor agitation or anxiety symptoms while present on the unit. His gabapentin was increased close to to his home dose. The patient displayed significant improvement on these medications and was much more spontaneous with staff and peers. He was out of his room more and more social in the milieu. On the day of discharge, the patient is not reporting any suicidal or homicidal ideation, intention, and/or plan. He is not reporting any auditory or visual hallucinations. He is not reporting any paranoia or other delusions. The patient denies any access to firearms or other weapons. The patient has been in adherent with his medications and is not reporting any significant side effects at this time. The patient did express a desire to stay on the unit for one more week however was informed that since he no longer met any criteria for continued inpatient psychiatric hospitalization, he was subsequently discharged. Discharge was initially held because we're unable to determine a safe discharge plan however the patient appears to be future oriented and is not presenting with any issues concerning his ability to care for himself. He appears future and goal-oriented. This patient's mother and guardian expressed concern for his discharge stating that she did not feel he was appropriate. This provider and the social studies teacher attempted to contact the patient's mother multiple times (>10 combined between the two of us). The patient's mother's voice mail is not set up at this time and we have been unable to leave any message for her. Regardless of her concern which was relayed to the social studies teacher, with no specific mention of any particular pathology that was concerning, the patient has not displayed any significant psychiatric pathology that warrants any further inpatient psychiatric treatment. In order to preserve patient autonomy, we will go forward with discharge as planned. Mental status exam: General Appearance: Patient appears to be stated age is alert, pleasant, and cooperative. Patient is in no acute distress and has slightly disheveled hygiene and grooming Behavior: Patient is calmly seated without any agitated behavior. Speech: Patient's speech is fluent and nonpressured. Mood/Affect: Patient reports their mood is "feeling better and ready", affect is constricted however euthymic. Suicidality/Homicidality: Patient denies having any suicidal or homicidal ideation intent or plan. Perceptions: Patient denies any auditory or visual hallucinations. Though content/process: There is no evidence of any delusional thought content and thought process is linear and goal-directed. Memory and concentration: AOX3, grossly intact for the purposes of this session. Can spell "WORLD" backwards correctly. Judgment and insight: Improved with guarded prognosis Impression: Schizophrenia Generalized anxiety disorder Plan: -Continue with discharge today as patient has improved and stabilized psychiatrically and is not currently an imminent threat to himself and/or others. Patient will remain at chronically elevated risk for harm to self and/or others due to his homelessness, criminal history, and history of substance abuse. -Continue medications: We will provide the patient with Klonopin 0.5 mg by mouth twice a day for 3 days only for management of acute anxiety in the context of recent discharge from [facility] and reintroduction back into society Gabapentin 800 mg by mouth 3 times a day for off label use for anxiety Vistaril 25 mg by mouth 4 times a day for anxiety and Zyprexa 10 mg by mouth twi ce a day for schizoaffective disorder -Patient was counseled on the need for medication compliance and appropriate follow-up at mental health and also primary care for medical issues. Patient verbalized understanding and agreed. -Social work to arrange for and conduct family meeting to ensure safety upon discharge and answer any questions/concerns. Social work also to arrange for patients follow up appointments for psychiatric care along with follow up with primary care provider. -Patient counseled on abstaining from recreational drugs and marijuana and alcohol. Was informed/educated on the adverse effects on their physical and mental health. Patient verbally agreed and understood. Patient was offered substance abuse treatment however declined at this time. -Patient was instructed to return to the hospital or seek immediate medical care if their psychiatric or medical symptoms do worsen or reoccur. -Psychoeducation and supportive therapy provided to patient. Risks and benefits of pharmacological treatment versus the risks and benefits of nontreatment weight and discussed. Informed consent discussion held. Common side effects of psychotropics discussed such as, but not limited to headache, GI disturbance, sexual dysfunction, movement disorders, sedation, and orthostatic hypotension. Life threatening and blackbox warnings of prescribed medications also discussed. Potential risks of operating a vehicle or heavy machinery discussed with patient at length. Advised on importance of compliance and a reliable and responsible manner. Patient advised to review FDA consumer labeling of all medications prior to taking. Patient verbalized understanding of potential risks, and agrees with current treatment plan. Patient advised to medically contact physician/emergency personnel if any acute changes in condition occur. Vital Signs Temp 97.4 F L 11/22/21 07:58 Pulse 112 H 11/22/21 07:58 Resp 16 11/22/21 07:58 BP 117/78 11/22/21 07:58 Pulse Ox 96 11/22/21 07:58 Laboratory Results Urine Opiates Screen Not Detected (NotDetected) 11/19/21 11:40 Ur Oxycodone Screen Not Detected (NotDetected) 11/19/21 11:40 Urine Methadone Screen Not Detected (NotDetected) 11/19/21 11:40 Ur Propoxyphene Screen Not Detected (NotDetected) 11/19/21 11:40 Ur Barbiturates Screen Not Detected (NotDetected) 11/19/21 11:40 U Tricyclic Antidepress Not Detected (NotDetected) 11/19/21 11:40 Ur Phencyclidine Scrn Not Detected (NotDetected) 11/19/21 11:40 Ur Amphetamines Screen Not Detected (NotDetected) 11/19/21 11:40 U Methamphetamines Scrn Not Detected (NotDetected) 11/19/21 11:40 U Benzodiazepines Scrn Not Detected (NotDetected) 11/19/21 11:40 Urine Cocaine Screen Not Detected (NotDetected) 11/19/21 11:40 U Marijuana (THC) Screen Not Detected (NotDetected) 11/19/21 11:40 Coronavirus (PCR) Not Detected (Not Detectd) 11/19/21 12:20 Allergies Allergy/AdvReac Type Severity Reaction Status Date / Time aripiprazole [From Abilify] Allergy Unknown Verified 11/19/21 13:24 fluphenazine HCl Allergy Unknown Verified 11/19/21 13:24 [From Prolixin] paliperidone [From Invega] Allergy Unknown Verified 11/19/21 13:24 propoxyphene Allergy Unknown Verified 11/19/21 13:24 [From Darvocet-N] risperidone [From Risperdal] Allergy Unknown Verified 11/19/21 13:24 ziprasidone [From Geodon] Allergy Unknown Verified 11/19/21 13:24 fluphenazine enanthate AdvReac Severe Trismus Verified 11/19/21 13:24 [From Prolixin] haloperidol [From Haldol] AdvReac Unknown Verified 11/19/21 13:24 Patient Condition at Discharge: Stable Plan - Discharge Summary Discharge Rx Participant: No New Discharge Prescriptions: New clonazePAM [KlonoPIN] 0.5 mg PO BID 3 Days tab Gabapentin [Neurontin] 800 mg PO TID 30 Days cap hydrOXYzine pamoate [Vistaril] 25 mg PO QID 30 Days cap OLANZapine [ZyPREXA] 10 mg PO BID 30 Days tab Discontinued hydrOXYzine HCL [Atarax] 50 mg PO TID PRN PRN Reason: Anxiety OLANZapine [ZyPREXA] 10 mg PO HS Discharge Medication List Gabapentin [Neurontin] 800 mg PO TID 30 Days cap 11/23/21 [Rx] OLANZapine [ZyPREXA] 10 mg PO BID 30 Days tab 11/23/21 [Rx] clonazePAM [KlonoPIN] 0.5 mg PO BID 3 Days tab 11/23/21 [Rx] hydrOXYzine pamoate [Vistaril] 25 mg PO QID 30 Days cap 11/23/21 [Rx] Follow up Appointment(s)/Referral(s): [facility] [Outside] - 11/29/21 9:15 am (11/29/2021 9:15AM - 10:00 [facility] ) Anna Gandhi MD [Primary Care Provider] - 1-2 days Patient Instructions/Handouts: Stress (DC), Depression (DC), Suicide Prevention (DC) Activity/Diet/Wound Care/Special Instructions: Activity and diet as tolerated. Avoid the use of street drugs and alcohol. Take all medications as prescribed. When you are in need of refills on your medications please contact your medical provider and/or outpatient psychiatrist to have this done. Please go to scheduled outpatient appointment for aftercare treatment. If symptoms return or become worse, call the crisis line at and/or go to the nearest emergency room for evaluation Discharge Disposition: HOME SELF-CARE
== END 2021-11-24 13:55 | disposition home or self-care (01) | DRG 885 ==
LOC: EC 10:13 → 3MHU 14:09
PROVIDERS: ADMIT Psychiatry & Neurology Psychiatry; ATTEND Psychiatry & Neurology Psychiatry
DX: F25.9 Schizoaffective disorder, unspecified (principal); R45.851 Suicidal ideations; F41.0 Panic disorder [episodic paroxysmal anxiety]; G40.909 Epilepsy, unspecified, not intractable, without status epilepticus; Z59.00 Homelessness unspecified; Z65.3 Problems related to other legal circumstances; Z79.899 Other long term (current) drug therapy; Z87.891 Personal history of nicotine dependence; R51.9 Headache, unspecified; T42.76XA Underdosing of unspecified antiepileptic and sedative-hypnotic drugs, initial encounter; Z91.128 Patient's intentional underdosing of medication regimen for other reason; T43.96XA Underdosing of unspecified psychotropic drug, initial encounter; Z88.5 Allergy status to narcotic agent; Z88.8 Allergy status to other drugs, medicaments and biological substances; Z20.822 Contact with and (suspected) exposure to COVID-19; Z71.89 Other specified counseling
CPT/HCPCS: 80306; 87635; 99285

== ENCOUNTER 2022-01-05 17:41 | Emergency (ER) | payer MEDICARE, OTHER ==
[2022-01-05 18:32] VITALS: TEMP 98
[2022-01-05] MEDS ORDERED: LORazepam 2 MG/ML INJ IV STA (20:01)
[2022-01-05] MEDS ORDERED: SODIUM CHLORIDE 0.9% 1,000 ML IV STA (20:01)
[2022-01-05 20:21] LABS: Glucose,Whole Blood 108 mg/dL (75-99)
[2022-01-05 20:26] VITALS: RESP 18
[2022-01-05 20:46] LABS: Appearance,Urine Clear (Clear); Bilirubin,Urine Negative (Negative); Blood,Urine Negative (Negative); Color,Urine Yellow; Glucose,Urine (UA) Negative (Negative); Ketones,Urine Negative (Negative); Leukocyte Esterase,Urine Negative (Negative); Nitrite,Urine Negative (Negative); PH, Urine 6.5 (5.0-8.0); Protein,Urine Negative (Negative); Specific Gravity,Urine 1.027 (1.001-1.035); Urobilinogen,Urine <2.0 mg/dL (<2.0)
[2022-01-05 20:49] LABS: Basophils % (A) 1 %; Eosinophils # (A) 0.2 k/uL (0-0.7); Eosinophils % (A) 4 %; HCT 40.3 % (39.0-53.0); HGB 13.8 gm/dL (13.0-17.5); Lymphocytes # (A) 1.6 k/uL (1.0-4.8); Lymphocytes % (A) 31 %; MCH 30.7 pg (25.0-35.0); MCHC 34.3 g/dL (31.0-37.0); MCV 89.5 fL (80.0-100.0); Monocytes # (A) 0.3 k/uL (0-1.0); Monocytes % (A) 6 %; Neutrophils % (A) 58 %; Platelet Count 189 k/uL (150-450); RDW 13.2 % (11.5-15.5); WBC 5.2 k/uL (3.8-10.6)
[2022-01-05 21:01] LABS: Amphetamine Screen,Urine Not Detected (NotDetected); Barbiturate Screen,Urine Detected (NotDetected); Benzodiazepines Screen,Urine Not Detected (NotDetected); Cocaine Screen,Urine Not Detected (NotDetected); Methadone Screen, Urine Not Detected (NotDetected); Opiate Screen,Urine Not Detected (NotDetected); Oxycodone Screen, Urine Not Detected (NotDetected); Phencyclidine Screen,Urine Not Detected (NotDetected); Tricyclic Antidepressant,Urine Not Detected (NotDetected); Urn Cannabinoid Scrn Not Detected (NotDetected)
[2022-01-05 21:02] LABS: ALT 25 U/L (4-49); AST 25 U/L (17-59); African American GFR (CKD) >90 (>60 ml/min/1.73 sqM); Albumin 4.3 g/dL (3.5-5.0); Alcohol <10 mg/dL; Alkaline Phosphatase 77 U/L (38-126); Anion Gap 8 mmol/L; Blood Urea Nitrogen 22 mg/dL (9-20); Calcium 8.9 mg/dL (8.4-10.2); Carbon Dioxide 29 mmol/L (22-30); Chloride 105 mmol/L (98-107); Glucose 104 mg/dL (74-99); Magnesium 2.2 mg/dL (1.6-2.3); Non-African American GFR(CKD) >90 (>60 ml/min/1.73 sqM); Potassium 4.3 mmol/L (3.5-5.1); Sodium 142 mmol/L (137-145); Total Bilirubin 0.3 mg/dL (0.2-1.3)
--- NOTE | 2022-01-05 21:04 | ED ---
Seizure HPI - General Chief Complaint: Seizure Stated Complaint: Seizure, Chest Pain Time Seen by Provider: 01/05/22 19:58 Source: patient, RN notes reviewed Mode of arrival: wheelchair Limitations: no limitations - History of Present Illness Initial Comments: Patient with a known seizure disorder presents to emergency department stating that he was walking, felt as if he is going to have a seizure and fell. Patient states he has a headache and states he likely hit his head. Patient is on Neurontin for seizure control. However patient states that he was given Klonopin for 3 days during his last visit about a month ago. Patient requesting this medication. Patient is on no other seizure prophylaxis. Patient denies any other injuries. Patient states she did have some chest wall pain after the fall. Patient states she also had a tingling sensation in both arms. He denies any neck pain. He states this is consistent with his previous seizure activity. This was a complete seizure with loss of consciousness. No bystanders. P atient unsure how long he was down. no fever or chills, no changes in vision or hearing, no sore throat or difficulty with speech, no neck pain, no shortness of breath, no abdominal liyah n, no nausea or vomiting, no changes in urination or bowel movements, no numbness or tingling, no extremity pain, no skin rashes or lesions. MD Complaint: seizure, feel seizure coming on - Related Data Previous Rx's Medication Instructions Recorded Gabapentin [Neurontin] 800 mg PO TID 30 Days cap 11/23/21 OLANZapine [ZyPREXA] 10 mg PO BID 30 Days tab 11/23/21 clonazePAM [KlonoPIN] 0.5 mg PO BID 3 Days tab 11/23/21 hydrOXYzine pamoate [Vistaril] 25 mg PO QID 30 Days cap 11/23/21 clonazePAM 0.5 mg PO TID 3 Days #9 tab 01/05/22 Allergies Allergy/AdvReac Type Severity Reaction Status Date / Time aripiprazole [From Abilify] Allergy Unknown Verified 01/05/22 18:28 fluphenazine HCl Allergy Unknown Verified 01/05/22 18:28 [From Prolixin] paliperidone [From Invega] Allergy Unknown Verified 01/05/22 18:28 propoxyphene Allergy Unknown Verified 01/05/22 18:28 [From Darvocet-N] risperidone [From Risperdal] Allergy Unknown Verified 01/05/22 18:28 ziprasidone [From Geodon] Allergy Unknown Verified 01/05/22 18:28 fluphenazine enanthate AdvReac Severe Trismus Verified 01/05/22 18:28 [From Prolixin] haloperidol [From Haldol] AdvReac Unknown Verified 01/05/22 18:28 Review of Systems ROS Statement: Those systems with pertinent positive or pertinent negative responses have been documented in the HPI. ROS Other: All systems not noted in ROS Statement are negative. Past Medical History Past Medical History: Seizure Disorder Additional Past Medical History / Comment(s): Schizophrenia, right arm fracture, degenerative disc to lower back, and right wrist plate and screws History of Any Multi-Drug Resistant Organisms: None Reported Past Surgical History: Orthopedic Surgery Additional Past Surgical History / Comment(s): mouth surgery, reduction of right arm fracture. Past Anesthesia/Blood Transfusion Reactions: No Reported Reaction Past Psychological History: Anxiety, Panic Disorder, Schizophrenia Smoking Status: Former smoker Past Alcohol Use History: Rare Past Drug Use History: Marijuana - Past Family History Mother Brother(s) Family Medical History: Unable to Obtain General Exam - General Exam Comments Initial Comments: No acute distress, does not appear to be ill or toxic. Cranial nerves II through XII are intact, GCS is 15, a and O 4 Limitations: no limitations General appearance: alert, in no apparent distress Head exam: Present: atraumatic, normocephalic, normal inspection, other (Hea dache, does not appear to be any significant trauma.) Eye exam: Present: normal appearance, PERRL, EOMI. Absent: scleral icterus, conjunctival injection, periorbital swelling ENT exam: Present: normal exam, normal oropharynx, mucous membranes dry, mucous membranes moist, TM's normal bilaterally Neck exam: Present: normal inspection, full ROM. Absent: tenderness, meningismus, lymphadenopathy Respiratory exam: Present: normal lung sounds bilaterally, chest wall tenderness. Absent: respiratory distress, wheezes, rales, rhonchi, stridor, accessory muscle use Cardiovascular Exam: Present: regular rate, normal rhythm, normal heart sounds. Absent: systolic murmur, diastolic murmur, rubs, gallop, clicks GI/Abdominal exam: Present: soft, normal bowel sounds. Absent: distended, tenderness, guarding, rebound, rigid Extremities exam: Present: normal inspection, full ROM, normal capillary refill. Absent: tenderness, pedal edema, joint swelling, calf tenderness Back exam: Present: normal inspection Neurological exam: Present: alert, oriented X3, CN II-XII intact Expanded Patient oriented to: Present: person, place, time Speech: Present: fluid speech Cranial nerves: EOM's Intact: Normal, Gag Reflex: Normal, Tongue Deviation: Normal, Nystagmus: Normal, Facial Sensation: Normal, Facial Palsy with Forehead Movement: Normal, Facial Palsy without Forehead Movement: Normal Cerebellar function: Finger to Nose: Normal, Heel to Batista: Normal, Romberg: Normal Psychiatric exam: Present: normal affect, normal mood Skin exam: Present: warm, dry, intact, normal color. Absent: rash Course Vital Signs 01/05/22 01/05/22 01/05/22 18:28 20:21 21:31 Temperature 98 F Pulse Rate 83 76 75 Respiratory 16 18 18 Rate Blood Pressure 109/78 127/79 125/72 O2 Sat by Pulse 97 94 L 95 Oximetry 01/05/22 22:00 Temperature Pulse Rate 80 Respiratory 18 Rate Blood Pressure 113/80 O2 Sat by Pulse 96 Oximetry - Reevaluation(s) Reevaluation #1: 01/05/22 22:04 Medical record is reviewed Symptoms are improved here in the emergency department Patient is informed of results and questions answered Patient in no distress Repeat neurological examination is normal. Patient remained neurologically intact throughout the course of stay with serial neurological examinations Medical Decision Making - Medical Decision Making Computed tomography scan of the brain will be ordered for unwitnessed fall, head injury, seizure activity/LOC. Patient was reevaluated prior to discharge is resting comfortable in bed. Ivan rologically intact. No seizure activity in the emergency department. [place] CT Head Criteria Only Apply to GCS 15 Patients. [ ] Headache [ ] Vomiting [ ] Age > 60 [ ] Alcohol or Drug Intoxication [ ] Persisent anterograde amnesia (short-term memory deficits) [ ] Visible Trauma above the Clavicles [ X ] Seizure Medical record is reviewed Symptoms are improved here in the emergency department Patient is informed of results and questions answered Patient in no distress Patient was told to return to the ER for any signs or symptoms worsen. Told to return immediately if any other problems arise. All questions answered. Treatment plan discussed. Patient in agreement Every effort has been made to ensure accuracy of this dictation. However, due to the limitations of electronic medical records and dictation devices, errors in charting still occur. - Lab Data Result diagrams: 01/05/22 20:21 01/05/22 20:21 Lab Results 01/05/22 01/05/22 01/05/22 Range/Units 20:20 20:21 20:21 WBC 5.2 (3.8-10.6) k/uL RBC 4.50 (4.30-5.90) m/uL Hgb 13.8 (13.0-17.5) gm/dL Hct 40.3 (39.0-53.0) % MCV 89.5 (80.0-100.0) fL MCH 30.7 (25.0-35.0) pg MCHC 34.3 (31.0-37.0) g/dL RDW 13.2 (11.5-15.5) % Plt Count 189 (150-450) k/uL MPV 7.0 Neutrophils % 58 % Lymphocytes % 31 % Monocytes % 6 % Eosinophils % 4 % Basophils % 1 % Neutrophils # 3.0 (1.3-7.7) k/uL Lymphocytes # 1.6 (1.0-4.8) k/uL Monocytes # 0.3 (0-1.0) k/uL Eosinophils # 0.2 (0-0.7) k/uL Basophils # 0.0 (0-0.2) k/uL Sodium 142 (137-145) mmol/L Potassium 4.3 (3.5-5.1) mmol/L Chloride 105 (98-107) mmol/L Carbon Dioxide 29 (22-30) mmol/L Anion Gap 8 mmol/L BUN 22 H (9-20) mg/dL Creatinine 0.84 (0.66-1.25) mg/dL Est GFR (CKD-EPI)AfAm >90 (>60 ml/min/1.73 sqM) Est GFR (CKD-EPI)NonAf >90 (>60 ml/min/1.73 sqM) Glucose 104 H (74-99) mg/dL POC Glucose (mg/dL) 108 H (75-99) mg/dL POC Glu Occupational Health Nurse Manager ID Porrett, Kwabena Calcium 8.9 (8.4-10.2) mg/dL Magnesium 2.2 (1.6-2.3) mg/dL Total Bilirubin 0.3 (0.2-1.3) mg/dL AST 25 (17-59) U/L ALT 25 (4-49) U/L Alkaline Phosphatase 77 (38-126) U/L Troponin I (0.000-0.034) ng/mL Total Protein 7.0 (6.3-8.2) g/dL Albumin 4.3 (3.5-5.0) g/dL Urine Color Urine Appearance (Clear) Urine pH (5.0-8.0) Ur Specific Minto (1.001-1.035) Urine Protein (Negative) Urine Glucose (UA) (Negative) Urine Ketones (Negative) Urine Blood (Negative) Urine Nitrite (Negative) Urine Bilirubin (Negative) Urine Urobilinogen (<2.0) mg/dL Ur Leukocyte Esterase (Negative) Urine Opiates Screen (NotDetected) Ur Oxycodone Screen (NotDetected) Urine Methadone Screen (NotDetected) Ur Propoxyphene Screen (NotDetected) Ur Barbiturates Screen (NotDetected) U Tricyclic Antidepress (NotDetected) Ur Phencyclidine Scrn (NotDetected) Ur Amphetamines Screen (NotDetected) U Methamphetamines Scrn (NotDetected) U Benzodiazepines Scrn (NotDetected) Urine Cocaine Screen (NotDetected) U Marijuana (THC) Screen (NotDetected) Serum Alcohol <10 mg/dL 01/05/22 01/05/22 Range/Units 20:21 20:21 WBC (3.8-10.6) k/uL RBC (4.30-5.90) m/uL Hgb (13.0-17.5) gm/dL Hct (39.0-53.0) % MCV (80.0-100.0) fL MCH (25.0-35.0) pg MCHC (31.0-37.0) g/dL RDW (11.5-15.5) % Plt Count (150-450) k/uL MPV Neutrophils % % Lymphocytes % % Monocytes % % Eosinophils % % Basophils % % Neutrophils # (1.3-7.7) k/uL Lymphocytes # (1.0-4.8) k/uL Monocytes # (0-1.0) k/uL Eosinophils # (0-0.7) k/uL Basophils # (0-0.2) k/uL Sodium (137-145) mmol/L Potassium (3.5-5.1) mmol/L Chloride (98-107) mmol/L Carbon Dioxide (22-30) mmol/L Anion Gap mmol/L BUN (9-20) mg/dL Creatinine (0.66-1.25) mg/dL Est GFR (CKD-EPI)AfAm (>60 ml/min/1.73 sqM) Est GFR (CKD-EPI)NonAf (>60 ml/min/1.73 sqM) Glucose (74-99) mg/dL POC Glucose (mg/dL) (75-99) mg/dL POC Glu Occupational Health Nurse Manager ID Calcium (8.4-10.2) mg/dL Magnesium (1.6-2.3) mg/dL Total Bilirubin (0.2-1.3) mg/dL AST (17-59) U/L ALT (4-49) U/L Alkaline Phosphatase (38-126) U/L Troponin I <0.012 (0.000-0.034) ng/mL Total Protein (6.3-8.2) g/dL Albumin (3.5-5.0) g/dL Urine Color Yellow Urine Appearance Clear (Clear) Urine pH 6.5 (5.0-8.0) Ur Specific Minto 1.027 (1.001-1.035) Urine Protein Negative (Negative) Urine Glucose (UA) Negative (Negative) Urine Ketones Negative (Negative) Urine Blood Negative (Negative) Urine Nitrite Negative (Negative) Urine Bilirubin Negative (Negative) Urine Urobilinogen <2.0 (<2.0) mg/dL Ur Leukocyte Esterase Negative (Negative) Urine Opiates Screen Not Detected (NotDetected) Ur Oxycodone Screen Not Detected (NotDetected) Urine Methadone Screen Not Detected (NotDetected) Ur Propoxyphene Screen Not Detected (NotDetected) Ur Barbiturates Screen Detected H (NotDetected) U Tricyclic Antidepress Not Detected (NotDetected) Ur Phencyclidine Scrn Not Detected (NotDetected) Ur Amphetamines Screen Not Detected (NotDetected) U Methamphetamines Scrn Not Detected (NotDetected) U Benzodiazepines Scrn Not Detected (NotDetected) Urine Cocaine Screen Not Detected (NotDetected) U Marijuana (THC) Screen Not Detected (NotDetected) Serum Alcohol mg/dL - EKG Data EKG Comments: EKG shows sinus rhythm with rate of 72, MT interval 116 ms. Remainder of the intervals are normal. Normal axis, no acute ST or T-wave changes. - Radiology Data Radiology results: report reviewed, image reviewed Disposition Clinical Impression: Recurrent seizures, Chest wall pain Disposition: HOME SELF-CARE Condition: Good Instructions (If sedation given, give patient instructions): Recurrent Seizures in Adults (ED) Additional Instructions: Follow-up with your regular physician as directed. Return to the ER immediately if any symptoms worsen, new symptoms arise, or any other problems develop. Make sure you call your neurologist tomorrow. Continue your medications as directed by your neurologist. Prescriptions: clonazePAM 0.5 mg PO TID 3 Days #9 tab Is patient prescribed a controlled substance at d/c from ED?: Yes If prescribed controlled substance>3 days was MAPS reviewed?: Prescribed <3 Days Referrals: Anna Gandhi MD [Primary Care Provider] - 1-2 days Time of Disposition: 22:04
--- NOTE | 2022-01-05 21:50 | CT ---
EXAMINATION TYPE: CT brain wo con DATE OF EXAM: 01/05/2022 COMPARISON: 11/01/2016 HISTORY: seizures, hit right side of head CT DLP: 1099.4 mGycm Automated exposure control for dose reduction was used. Ventricles have normal size. There is no mass effect or midline shift. There is no sign of intracrani al hemorrhage. Calvarium is intact. There is normal aeration of the mastoid sinuses. IMPRESSION: Negative CT scan of the brain. No change.
[2022-01-05 22:02] VITALS: BP 113/80; PULSE 80
== END 2022-01-05 22:28 | disposition home or self-care (01) ==
LOC: EC 17:41
DX: G40.909 Epilepsy, unspecified, not intractable, without status epilepticus (principal); R07.89 Other chest pain; Z87.891 Personal history of nicotine dependence
CPT/HCPCS: 36415; 93005; 80053; 83735; 84484; 85025; 81003; 80306; 70450; 99285; 96374; 96361; G0480; J2060; 80320

== ENCOUNTER 2022-01-13 13:55 | Emergency (ER) | payer MEDICARE, OTHER ==
[2022-01-13 15:03] VITALS: RESP 18; TEMP 97.7
--- NOTE | 2022-01-13 16:24 | ED ---
General Adult HPI - General Chief complaint: Seizure Stated complaint: Seizure-revisit Time Seen by Provider: 01/13/22 15:30 Source: patient Mode of arrival: ambulatory Limitations: no limitations - History of Present Illness Initial comments: This 31-year-old male past medical history of schizophrenia and seizure disorder presents to the emergency department stating he is unsure if he had a seizure at home but was requesting to be assessed by EPS. Patient states he was seen here a few days ago for having a seizure and was given clonazepam, patient states "I think I may have had a seizure today and a lot more of that clonazepam." Patient states she was at home today and thinks he may have had an episode of blacking out for a couple seconds but he is unsure. Patient states he does not want any labs done and states he just wants clonazepam or to be seen by EPS because he thinks the symptoms are occurring due to a change in his medication. Patient states he was just seen by his neurologist a few weeks ago and was started back on Neurontin and Fioricet which she has been on in the past for his seizures, however he was in assisted for 3 years and was not given any of these medications. Patient states he is currently taking Vistaril and Zyprexa for his mental health disorder and states he wants his Zyprexa decreased. Patient states he does see a Candace, a psychiatrist with [facility] and states he was just seen by her couple weeks ago and does have an appointment in the next 1-2 months with her. Patient denies hitting his head or any loss of consciousness today during his episode. Patient denies any convulsions or loss of consciousness that he states is usually present with his seizures. Patient denies any chest pain, nausea, vomiting, headache and lightheadedness, dizziness, change in vision, change in appetite, bowel or bladder incontinence, back pain, biting his tongue. - Related Data Home Medications Medication Instructions Recorded Confirmed Gabapentin 800 mg PO QID 01/13/22 01/13/22 OLANZapine [ZyPREXA] 10 mg PO BID@0800,2100 01/13/22 01/13/22 Previous Rx's Medication Instructions Recorded hydrOXYzine pamoate [Vistaril] 25 mg PO QID 30 Days cap 11/23/21 Allergies Allergy/AdvReac Type Severity Reaction Status Date / Time aripiprazole [From Abilify] Allergy Unknown Verified 01/13/22 14:20 fluphenazine HCl Allergy Unknown Verified 01/13/22 14:20 [From Prolixin] paliperidone [From Invega] Allergy Unknown Verified 01/13/22 14:20 propoxyphene Allergy Unknown Verified 01/13/22 14:20 [From Darvocet-N] risperidone [From Risperdal] Allergy Unknown Verified 01/13/22 14:20 ziprasidone [From Geodon] Allergy Unknown Verified 01/13/22 14:20 fluphenazine enanthate AdvReac Severe Trismus Verified 01/13/22 14:20 [From Prolixin] haloperidol [From Haldol] AdvReac Unknown Verified 01/13/22 14:20 Review of Systems ROS Statement: Those systems with pertinent positive or pertinent negative responses have been documented in the HPI. ROS Other: All systems not noted in ROS Statement are negative. Past Medical History Past Medical History: Seizure Disorder Additional Past Medical History / Comment(s): Schizophrenia, right arm fracture, degenerative disc to lower back, and right wrist plate and screws History of Any Multi-Drug Resistant Organisms: None Reported Past Surgical History: Orthopedic Surgery Additional Past Surgical History / Comment(s): mouth surgery, reduction of right arm fracture. Past Anesthesia/Blood Transfusion Reactions: No Reported Reaction Past Psychological History: Anxiety, Panic Disorder, Schizophrenia Smoking Status: Former smoker Past Alcohol Use History: Rare Past Drug Use History: Marijuana - Past Family History Mother Brother(s) Family Medical History: Unable to Obtain General Exam Limitations: no limitations General appearance: alert, in no apparent distress Head exam: Present: atraumatic, normocephalic, normal inspection Eye exam: Present: normal appearance, PERRL, EOMI. Absent: scleral icterus, conjunctival injection, periorbital swelling Pupils: Present: normal accommodation ENT exam: Present: normal exam, normal oropharynx, mucous membranes moist Neck exam: Present: normal inspection. Absent: tenderness, meningismus, lymphadenopathy Respiratory exam: Present: normal lung sounds bilaterally. Absent: respiratory distress, wheezes, rales, rhonchi, stridor, chest wall tenderness, accessory muscle use, decreased breath sounds, prolonged expiratory Cardiovascular Exam: Present: regular rate, normal rhythm, normal heart sounds. Absent: systolic murmur, diastolic murmur, rubs, gallop, clicks GI/Abdominal exam: Present: soft, normal bowel sounds. Absent: distended, tenderness, guarding, rebound, rigid Extremities exam: Present: normal inspection, full ROM, normal capillary refill. Absent: tenderness, pedal edema, joint swelling, calf tenderness Back exam: Present: normal inspection, full ROM. Absent: CVA tenderness (R), CVA tenderness (L), paraspinal tenderness, vertebral tenderness Neurological exam: Present: alert, oriented X3, CN II-XII intact Psychiatric exam: Present: normal mood, flat affect Skin exam: Present: warm, dry, intact, normal color. Absent: rash Course Vital Signs 01/13/22 14:16 Temperature 97.7 F Pulse Rate 67 Respiratory 18 Rate Blood Pressure 131/89 O2 Sat by Pulse 98 Oximetry Medical Decision Making - Medical Decision Making This 31-year-old male presents to the emergency Department stating he is unsure if he had a seizure and requesting clonazepam which she was given or his last se izure along with requesting to be seen by EPS. Patient had not want blood work to be repeated and states he did not hit his head. Patient stated his medication has been recently changed and states he does see a neurologist for a seizure disorder and is getting stabilized on medication for this. He states he also does see a psychiatrist Candace from [facility]. I did discuss case with my attending, prior to clearing patient for psychiatric evaluation. EPS nurse Pérez did assess patient and stated patient does not need to be admitted to the hospital for psychiatric workup or evaluation. She states she did call patient's guardian, his mother who stated he was okay for patient to walk back to [facility]. Prior to discharge, patient without any complaints other than he was upset that he wasn't able to get any clonazepam prior to discharge. Patient asymptomatic prior to discharge. Vital stable. Patient and mother agreed that they would call psychiatristCandace in the morning as EPS nurse Pérez did state that Candace would be able to see patient earlier than his next follow-up for possible medication adjustment. I did instruct patient to follow up with his neurologist along with his primary care provider. Instructed him to return if any seizures occur or if any new, worsening or concerning symptoms arise. Patient verbally agree to plan. Patient sent home in stable condition. Case discussed in detail my attending, . - Lab Data Lab Results 01/13/22 Range/Units 16:11 Urine Opiates Screen Not Detected (NotDetected) Ur Oxycodone Screen Not Detected (NotDetected) Urine Methadone Screen Not Detected (NotDetected) Ur Propoxyphene Screen Not Detected (NotDetected) Ur Barbiturates Screen Detected H (NotDetected) U Tricyclic Antidepress Not Detected (NotDetected) Ur Phencyclidine Scrn Not Detected (NotDetected) Ur Amphetamines Screen Not Detected (NotDetected) U Methamphetamines Scrn Not Detected (NotDetected) U Benzodiazepines Scrn Not Detected (NotDetected) Urine Cocaine Screen Not Detected (NotDetected) U Marijuana (THC) Screen Not Detected (NotDetected) Disposition Clinical Impression: History of seizure disorder, Encounter for psychiatric assessment Disposition: HOME SELF-CARE Condition: Stable Instructions (If sedation given, give patient instructions): Recurrent Seizures in Adults (ED) Additional Instructions: Please follow-up with your psychiatrist Candace with [facility], your neurologist and your primary care provider as discussed prior to discharge and the next 1-2 days. Return to the emergency department with any new, worsening or concerning symptoms arise. Is patient prescribed a controlled substance at d/c from ED?: No Referrals: Anna Gandhi MD [Primary Care Provider] - 1-2 days Time of Disposition: 18:12
[2022-01-13 16:47] LABS: Amphetamine Screen,Urine Not Detected (NotDetected); Barbiturate Screen,Urine Detected (NotDetected); Benzodiazepines Screen,Urine Not Detected (NotDetected); Cocaine Screen,Urine Not Detected (NotDetected); Methadone Screen, Urine Not Detected (NotDetected); Opiate Screen,Urine Not Detected (NotDetected); Oxycodone Screen, Urine Not Detected (NotDetected); Phencyclidine Screen,Urine Not Detected (NotDetected); Tricyclic Antidepressant,Urine Not Detected (NotDetected); Urn Cannabinoid Scrn Not Detected (NotDetected)
[2022-01-13 18:09] VITALS: BP 138/78; PULSE 98
== END 2022-01-13 18:08 | disposition home or self-care (01) ==
LOC: EC 13:55
DX: G40.909 Epilepsy, unspecified, not intractable, without status epilepticus (principal); Z88.8 Allergy status to other drugs, medicaments and biological substances; Z87.891 Personal history of nicotine dependence; Z79.899 Other long term (current) drug therapy
CPT/HCPCS: 80306; 82075; 99284

== ENCOUNTER 2022-01-21 18:14 | Inpatient (IN) | payer MEDICARE, MEDICAID ==
[2022-01-21 19:40] LABS: Amphetamine Screen,Urine Detected (NotDetected); Barbiturate Screen,Urine Detected (NotDetected); Benzodiazepines Screen,Urine Not Detected (NotDetected); Cocaine Screen,Urine Not Detected (NotDetected); Methadone Screen, Urine Not Detected (NotDetected); Opiate Screen,Urine Not Detected (NotDetected); Oxycodone Screen, Urine Not Detected (NotDetected); Phencyclidine Screen,Urine Not Detected (NotDetected); Tricyclic Antidepressant,Urine Not Detected (NotDetected); Urn Cannabinoid Scrn Not Detected (NotDetected)
--- NOTE | 2022-01-22 00:01 | ED ---
Psych HPI - General Chief Complaint: Psychiatric Symptoms Stated Complaint: EPS eval Time Seen by Provider: 01/21/22 18:50 Source: patient Mode of arrival: ambulatory - History of Present Illness Initial Comments: 31-year-old male with past medical history of schizoaffective disorder presents to the emergency department on a pickup order. The patient has been petitioned for mental health evaluation. Report that he has had increase in his paranoid thoughts. He does feel as if people are out to get him and reports that he will her most people. He was also speaking that he needed to defecate in a sock. Patient denies any statements to me however does admit that he wants to be admitted to the hospital for medication evaluation. Does not feel as if his medications are working for him any further. He denies any drug use. The remainder HPI is limited at this time because of the patient's psychotic state - Related Data Home Medications Medication Instructions Recorded Confirmed Gabapentin 800 mg PO QID 01/13/22 01/13/22 OLANZapine [ZyPREXA] 10 mg PO BID@0800,2100 01/13/22 01/13/22 Previous Rx's Medication Instructions Recorded hydrOXYzine pamoate [Vistaril] 25 mg PO QID 30 Days cap 11/23/21 Allergies Allergy/AdvReac Type Severity Reaction Status Date / Time aripiprazole [From Abilify] Allergy Unknown Verified 01/21/22 18:49 fluphenazine HCl Allergy Unknown Verified 01/21/22 18:49 [From Prolixin] paliperidone [From Invega] Allergy Unknown Verified 01/21/22 18:49 propoxyphene Allergy Unknown Verified 01/21/22 18:49 [From Darvocet-N] risperidone [From Risperdal] Allergy Unknown Verified 01/21/22 18:49 ziprasidone [From Geodon] Allergy Unknown Verified 01/21/22 18:49 fluphenazine enanthate AdvReac Severe Trismus Verified 01/21/22 18:49 [From Prolixin] haloperidol [From Haldol] AdvReac Unknown Verified 01/21/22 18:49 Review of Systems ROS Statement: Those systems with pertinent positive or pertinent negative responses have been documented in the HPI. ROS Other: All systems not noted in ROS Statement are negative. Past Medical History Past Medical History: Seizure Disorder Additional Past Medical History / Comment(s): Schizophrenia, right arm fracture, degenerative disc to lower back, and right wrist plate and screws History of Any Multi-Drug Resistant Organisms: None Reported Past Surgical History: Orthopedic Surgery Additional Past Surgical History / Comment(s): mouth surgery, reduction of right arm fracture. Past Anesthesia/Blood Transfusion Reactions: No Reported Reaction Past Psychological History: Anxiety, Panic Disorder, Schizophrenia Smoking Status: Former smoker Past Alcohol Use History: Rare Past Drug Use History: Marijuana - Past Family History Mother Brother(s) Family Medical History: Unable to Obtain General Exam Limitations: altered mental status General appearance: alert Head exam: Present: atraumatic, normocephalic, normal inspection ENT exam: Present: mucous membranes dry Respiratory exam: Present: normal lung sounds bilaterally. Absent: respiratory distress, wheezes, rales, rhonchi, stridor Cardiovascular Exam: Present: regular rate, normal rhythm, normal heart sounds. Absent: systolic murmur, diastolic murmur, rubs, gallop, clicks Neurological exam: Present: alert Psychiatric exam: Present: flat affect Course Vital Signs 01/21/22 01/22/22 18:46 00:49 Temperature 98.4 F Pulse Rate 77 71 Respiratory 20 18 Rate Blood Pressure 122/82 127/81 O2 Sat by Pulse 98 96 Oximetry Medical Decision Making - Medical Decision Making Upon arrival patient is placed into room 7. A thorough history and physical exam was performed. The patient does provide a urine sample. He is pending EPS evaluation. EPS does evaluate the patient's and does request a clinical certification which I do fill out on the patient. He is pending admission to the floor - Lab Data Lab Results 01/21/22 01/21/22 Range/Units 19:20 23:40 Urine Opiates Screen Not Detected (NotDetected) Ur Oxycodone Screen Not Detected (NotDetected) Urine Methadone Screen Not Detected (NotDetected) Ur Propoxyphene Screen Not Detected (NotDetected) Ur Barbiturates Screen Detected H (NotDetected) U Tricyclic Antidepress Not Detected (NotDetected) Ur Phencyclidine Scrn Not Detected (NotDetected) Ur Amphetamines Screen Detected H (NotDetected) U Methamphetamines Scrn Detected H (NotDetected) U Benzodiazepines Scrn Not Detected (NotDetected) Urine Cocaine Screen Not Detected (NotDetected) U Marijuana (THC) Screen Not Detected (NotDetected) Coronavirus (PCR) Not Detected (Not Detectd) Disposition Clinical Impression: Schizophrenia, acute, Paranoid ideation Disposition: OTHER INSTITUTION NOT DEFINED Condition: Stable Is patient prescribed a controlled substance at d/c from ED?: No Time of Disposition: 00:03 - Out of Hospital Transfer - Req. Specs Out of Hospital Transfer - Requested Specifics: Other Non-Acute ([facility])
[2022-01-22] MEDS ORDERED: HALOPERIDOL LACTATE 5 MG/ML 1 ML VIAL IM PRN (00:15)
[2022-01-22] MEDS ORDERED: ACETAMINOPHEN TAB 325 MG TAB PO PRN (00:30)
[2022-01-22] MEDS ORDERED: MAG HYDROX/AL HYDROX/SIMETH 30 ML CUP PO PRN (00:30)
[2022-01-22] MEDS: LORazepam 1 MG TAB PO PRN ×3 (01:01→18:43)
[2022-01-22] MEDS: hydrOXYzine pamoate 25 MG CAP PO SCH ×4 (08:15→19:48)
[2022-01-22] MEDS: GABAPENTIN 400 MG CAP PO SCH ×4 (08:15→19:49)
[2022-01-22] MEDS: OLANZapine 10 MG TAB PO SCH ×2 (08:15→19:48)
[2022-01-22] MEDS: NICOTINE 14MG/24HR PATCH TRANSDERM SCH (08:15)
[2022-01-22] MEDS ORDERED: MAGNESIUM HYDROXIDE 2,400 MG/10 ML CUP PO PRN (09:00)
--- NOTE | 2022-01-22 10:58 | P.HP ---
Psychiatric H&P - . H&P Date: 01/22/22 History & Physical: Allergies Allergy/AdvReac Type Severity Reaction Status Date / Time aripiprazole [From Abilify] Allergy Unknown Verified 01/21/22 18:49 fluphenazine HCl Allergy Unknown Verified 01/21/22 18:49 [From Prolixin] paliperidone [From Invega] Allergy Unknown Verified 01/21/22 18:49 propoxyphene Allergy Unknown Verified 01/21/22 18:49 [From Darvocet-N] risperidone [From Risperdal] Allergy Unknown Verified 01/21/22 18:49 ziprasidone [From Geodon] Allergy Unknown Verified 01/21/22 18:49 fluphenazine enanthate AdvReac Severe Trismus Verified 01/21/22 18:49 [From Prolixin] haloperidol [From Haldol] AdvReac Unknown Verified 01/21/22 18:49 Vital Signs Temp 97.5 F L 01/22/22 01:13 Pulse 77 01/22/22 01:13 Resp 18 01/22/22 01:13 BP 121/80 01/22/22 01:13 Pulse Ox 100 01/22/22 01:13 Intake & Output 01/21/22 01/22/22 01/22/22 18:59 06:59 18:59 Weight 79.379 kg 75.9 kg Laboratory Last Values Urine Opiates Screen Not Detected (NotDetected) 01/21/22 19:20 Ur Oxycodone Screen Not Detected (NotDetected) 01/21/22 19:20 Urine Methadone Screen Not Detected (NotDetected) 01/21/22 19:20 Ur Propoxyphene Screen Not Detected (NotDetected) 01/21/22 19:20 Ur Barbiturates Screen Detected (NotDetected) H 01/21/22 19:20 U Tricyclic Antidepress Not Detected (NotDetected) 01/21/22 19:20 Ur Phencyclidine Scrn Not Detected (NotDetected) 01/21/22 19:20 Ur Amphetamines Screen Detected (NotDetected) H 01/21/22 19:20 U Methamphetamines Scrn Detected (NotDetected) H 01/21/22 19:20 U Benzodiazepines Scrn Not Detected (NotDetected) 01/21/22 19:20 Urine Cocaine Screen Not Detected (NotDetected) 01/21/22 19:20 U Marijuana (THC) Screen Not Detected (NotDetected) 01/21/22 19:20 Coronavirus (PCR) Not Detected (Not Detectd) 01/21/22 23:40 01/22/22 10:52 Psychiatric evaluation: This is a psychiatric evaluation on this patient who is a 31-year-old male and was currently hospitalized with acute agitation and psychosis Patient carries a diagnoses of schizoaffective disorder and now presents with acute paranoid ideations delusional thinking and suicidal or homicidal thoughts Patient also exhibits bizarre thinking where he states that he needs to defecate in his sock Patient's drug screen also is positive for amphetamines and methamphetamines patient's current medications include gabapentin 800 mg 4 times a day and olanzapine 10 mg twice a day Patient when tried to be evaluated was resting comfortably in bed Patient only verbalize that he would sign in voluntarily and then went back to sleep Several attempts were made to engage the patient in this assessment but patient stated that he does not want to talk and wants to be left alone No further details could be collected at this time due to patient's uncooperativeness and declining to have an assessment done at this time Past history personal and social history : Could not be dealt with that in detail at this time due to above-mentioned reasons We will reevaluate the patient when he is more cooperative No other collateral information is available at this time Mental status examination: Reveals a young male who was resting comfortably in bed Patient intermittently continues to snore Patient woke up very briefly to agree with signing papers but otherwise went back to sleep Patient stated that he wanted to be left alone at this time and did not cooperate any further for any assessment Further evaluation will be done at a later time when patient is more cooperative and alert Diagnostic impression: Psychotic disorder acute most likely stimulant related Schizophrenia by history Stimulant use disorder unspecified Plan: The patient will be hospitalized on the unit for further evaluation and treatment. Therapy will be focused on providing supportive care improving his coping abilities with a multimodal treatment Patient will also participate in on the [place] activities Patient currently meets the criteria for hospitalization and has shown willingness to sign in voluntarily Approximately length of stay would be 3-7 days Fady Cecilia Graham 01/22/2022
--- NOTE | 2022-01-22 22:29 | P.MDCNMH ---
History of Present Illness H&P Date: 01/22/22 Chief Complaint: Psyhiatric ishanal Patient is a 31-year-old male with a known history of anxiety/panic disorder and schizophrenia and occasional marijuana use and degenerative disc disease to the lower back was brought to the hospital for mental health evaluation. Patient was petitioned. He has been having paranoid thoughts. Patient voluntarily agreeable for psychiatric evaluation. Denied any IV drug use. Otherwise patient denied any complaints of chest pain or shortness of breath. Patient is complaining of headache and requesting Fioricet. Patient states that he does have history of migraine headaches. Denies any fever or chills. No cough or sputum production. Denies any recent illnesses. UDS is positive for barbiturates, amphetamines and methamphetamines. Coronavirus PCR not detected Review of Systems Constitutional: Patient denies any fever or chills . No generalized weakness or weight loss. Abdomen: Patient denied nausea vomiting and diarrhea and abdominal pain. Cardiovascular: Patient denies any chest pain or short of breath no palpitations. Respiratory: patient denied any cough or sputum production. No shortness of breath Neurologic: Patient denied any numbness or tingling headache. Musculoskeletal: Patient denies any complaints of joint swelling or deformity. Skin: Negative Psychiatric: paranoid Endocrine: No heat or cold intolerance. No recent weight gain. Genitourinary: No dysuria or hematuria. All other 14 point ROS negative except the above Past Medical History Past Medical History: Seizure Disorder Additional Past Medical History / Comment(s): Schizophrenia, right arm fracture, degenerative disc to lower back, and right wrist plate and screws History of Any Multi-Drug Resistant Organisms: None Reported Past Surgical History: Orthopedic Surgery Additional Past Surgical History / Comment(s): mouth surgery, reduction of right arm fracture. Past Anesthesia/Blood Transfusion Reactions: No Reported Reaction Past Psychological History: Anxiety, Panic Disorder, Schizophrenia Smoking Status: Never smoker Past Alcohol Use History: Rare Past Drug Use History: Marijuana - Past Family History Mother Brother(s) Family Medical History: Unable to Obtain Medications and Allergies Home Medications Medication Instructions Recorded Confirmed Type hydrOXYzine pamoate [Vistaril] 25 mg PO QID 30 Days cap 11/23/21 01/13/22 Rx Gabapentin 800 mg PO QID 01/13/22 01/13/22 History OLANZapine [ZyPREXA] 10 mg PO BID@0800,2100 01/13/22 01/13/22 History Allergies Allergy/AdvReac Type Severity Reaction Status Date / Time aripiprazole [From Abilify] Allergy Unknown Verified 01/21/22 18:49 fluphenazine HCl Allergy Unknown Verified 01/21/22 18:49 [From Prolixin] paliperidone [From Invega] Allergy Unknown Verified 01/21/22 18:49 propoxyphene Allergy Unknown Verified 01/21/22 18:49 [From Darvocet-N] risperidone [From Risperdal] Allergy Unknown Verified 01/21/22 18:49 ziprasidone [From Geodon] Allergy Unknown Verified 01/21/22 18:49 fluphenazine enanthate AdvReac Severe Trismus Verified 01/21/22 18:49 [From Prolixin] haloperidol [From Haldol] AdvReac Unknown Verified 01/21/22 18:49 Physical Exam Vitals: Vital Signs Temp Pulse Pulse Resp BP BP Pulse Ox 01/22/22 01:13 97.5 F L 77 18 121/80 100 01/22/22 00:49 71 18 127/81 96 Intake and Output 01/22/22 01/22/22 01/22/22 06:59 14:59 22:59 Other: Weight 75.9 kg PHYSICAL EXAMINATION: Patient is lying in the bed comfortably, no acute distress, awake alert and oriented.. HEENT: Normocephalic. Neck is supple. Pupils reactive. Nostrils clear. Oral cavity is moist. Neck reveals no JVD, carotid bruits, or thyromegaly. CHEST EXAMINATION: Trachea is central. Symmetrical expansion. Lung jeffries clear to auscultation and percussion. CARDIAC: Normal S1, S2 with no gallops. No murmurs ABDOMEN: Soft. Bowel sounds normal. No organomegaly. No abdominal bruits. Extremities: reveal no edema. No clubbing or cyanosis Neurologically awake, alert, oriented x3 with well-coordinated movements. No focal deficits noted Skin: No rash or skin lesions. Psychiatric: Cooperative. Nonsuicidal Musculoskeletal: No joint swelling or deformity. Normal range of motion. Cranial Nerve Examination - Cranial Nerves Cranial Nerve I- Olfactory: Intact Cranial Nerve II- Optic: Intact Cranial Nerve III- Oculomotor: Intact Cranial Nerve IV- Trochlear: Intact Cranial Nerve V- Trigeminal: Intact Cranial Nerve - Abducens: Intact Cranial Nerve VII- Facial: Intact Cranial Nerve VIII- Auditory: Intact Cranial Nerve IX- Glossopharyngeal: Intact Cranial Nerve X- Vagus: Intact Cranial Nerve XI- Accessory: Intact Cranial Nerve XII- Hypoglossal: Intact Assessment and Plan Assessment: Schizophrenia with paranoid ideation. Anxiety and panic attacks Migraine headaches Chronic low back pain Previous history of smoking DVT prophylaxis with early ambulation Plan: Patient with a known current psychiatric management and plan. Follow-up CBC, CMP and TSH levels. Continue Tylenol for pain management. We will continue to follow and further recommendations based on clinical course. Thank you for your consult.
[2022-01-23] MEDS: NICOTINE 14MG/24HR PATCH TRANSDERM SCH (07:59)
[2022-01-23] MEDS: hydrOXYzine pamoate 25 MG CAP PO SCH ×4 (08:00→21:00)
[2022-01-23] MEDS: OLANZapine 10 MG TAB PO SCH ×2 (08:00→21:00)
[2022-01-23] MEDS: GABAPENTIN 400 MG CAP PO SCH ×4 (08:01→20:59)
[2022-01-23] MEDS: LORazepam 1 MG TAB PO PRN ×2 (08:54→16:12)
--- NOTE | 2022-01-23 10:32 | P.PN ---
Subjective Progress Note Date: 01/23/22 Principal diagnosis: Psychotic disorder acute most likely stimulant related Schizophrenia by history See mind use disorder unspecified Antisocial personality traits Subjective data: I came here because I wanted to have clonazepam started by Dr. new that he gave me last time he gave it to me to avoid having any seizures No I do not have any seizure disorder I want to have my Zyprexa decreased to 10 mg I already take gabapentin for anxiety Objective data: Patient presents disheveled appearance. Patient is alert and oriented to place and person Affect at this time appears to be flat Thought processes are goal-directed sequential and logical Patient remains very drug seeking especially for benzodiazepines Patient continues to rationalize and intellectualize and is very demanding Patient also wants a decrease in his psychotropic medications He denies experiencing any auditory or visual hallucinations at this time Plan: Patient was the explain the issues related to benzodiazepines and the addiction potential and have declined starting clonazepam Patient also requested for decrease in his Zyprexa and will be dropped down to 10 mg a day Discussed effects and side effects Monitor for any escalation of symptoms or agitation Continue current care and support Patient continues to meet the criteria for current [facility] Objective - Vital Signs Vital signs: Vital Signs Temp 97.5 F L 01/22/22 01:13 Pulse 111 H 01/23/22 08:57 Resp 18 01/22/22 01:13 BP 135/81 01/23/22 08:57 Pulse Ox 100 01/22/22 01:13 Intake & Output 01/22/22 01/23/22 01/23/22 18:59 06:59 18:59 Weight 77 kg
[2022-01-24] MEDS: LORazepam 1 MG TAB PO PRN ×2 (02:36→08:25)
[2022-01-24] MEDS: GABAPENTIN 400 MG CAP PO SCH ×4 (08:23→20:11)
[2022-01-24] MEDS: hydrOXYzine pamoate 25 MG CAP PO SCH ×4 (08:24→20:11)
[2022-01-24] MEDS: OLANZapine 10 MG TAB PO SCH (08:24)
[2022-01-24] MEDS: NICOTINE 14MG/24HR PATCH TRANSDERM SCH (08:43)
--- NOTE | 2022-01-24 13:11 | P.PN ---
Progress Note - Text Progress Note Date: 01/24/22 Interval History: Patient was seen wandering the hallways and was directable and agreeable to speak with video game script writer in the office. Currently, the patient is not reporting any suicidal or homicidal ideation, intention, or plan. He is not reporting any auditory or visual hallucinations. He denies any paranoia or other delusions. The patient expressed that he is only in the hospital because he is upset with how he is treated at his [facility]. He reports that he would like to change group homes and go back to [facility]. He was informed that this is not the reason for his admission. The patient was reminded that he was displaying an acute an abrupt change in behavior. The patient did test positive for methamphetamines Parkinson's admission to which he initially denies use however later relented that he used "maybe a week ago." The patient continues to medication seeking for benzodiazepines. Mental Status Exam: General Appearance: Patient appears to be stated age is alert, directable, and cooperative. Behavior: Patient is calmly seated without any agitated behavior. Speech: Patient's speech is fluent and nonpressured. Mood/Affect: Mood is "anxious," affect is mood incongruent. Suicidality/Homicidality: Patient denies any suicidal or homicidal ideation. Perceptions: Patient denies any visual hallucinations and denies any auditory hallucinations Though content/process: There is no evidence of any delusional thought content and thought process is linear and goal-directed. Medication seeking. Memory and concentration: AOX3, grossly intact for the purposes of this session Judgment and insight: Fair. 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 Patient has signed adult voluntary form and medication consent and was placed in patient's chart. -Medications: Continue Zyprexa 10 mg daily at bedtime for mood stabilization/psychosis Continue gabapentin 800 mg by mouth 4 times a day for seizure disorder -When necessary Vistaril and Haldol for agitation/aggression. -NRT - nicotine patch -SW on board for discharge planning. Encouraged the patient to participate in milieu.
[2022-01-24 17:43] VITALS: BP 127/57; PULSE 101; RESP 14; TEMP 98.3
[2022-01-24] MEDS ORDERED: OLANZapine 10 MG TAB PO SCH (21:00)
[2022-01-25] MEDS: hydrOXYzine pamoate 25 MG CAP PO SCH ×2 (08:40→12:47)
[2022-01-25] MEDS: GABAPENTIN 400 MG CAP PO SCH ×2 (08:41→12:46)
[2022-01-25] MEDS: NICOTINE 14MG/24HR PATCH TRANSDERM SCH (08:41)
--- NOTE | 2022-01-25 11:40 | P.DS ---
Providers Date of admission: 01/22/22 00:11 Expected date of discharge: 01/25/22 Attending physician: Lincoln Cote MD Consults: 01/22/22 00:15 Consult Physician Routine Consulting Provider: Adela Mendosa Consult Reason/Comments: h and p Do you want consulting provider notified?: Yes Primary care physician: Hiram Castillo - Discharge Diagnosis(es) (1) Acute psychosis Current Visit: Yes Status: Acute Priority: High (2) Methamphetamine abuse Current Visit: Yes Status: Acute Priority: High (3) Schizophrenia Current Visit: Yes Status: Acute Priority: High Hospital Course: Admission HPI: Patient was initially seen and evaluated by Dr Brooks who wrote: "Psychiatric evaluation: This is a psychiatric evaluation on this patient who is a 31-year-old male and was currently hospitalized with acute agitation and psychosis Patient carries a diagnoses of schizoaffective disorder and now presents with acute paranoid ideations delusional thinking and suicidal or homicidal thoughts Patient also exhibits bizarre thinking where he states that he needs to defecate in his sock Patient's drug screen also is positive for amphetamines and methamphetamines patient's current medications include gabapentin 800 mg 4 times a day and olanzapine 10 mg twice a day Patient when tried to be evaluated was resting comfortably in bed Patient only verbalize that he would sign in voluntarily and then went back to sleep Several attempts were made to engage the patient in this assessment but patient stated that he does not want to talk and wants to be left alone No further details could be collected at this time due to patient's uncooperativeness and declining to have an assessment done at this time" Hospital course: Upon admission to the unit patient was initially presenting as somnolent. Patient was however directable and agreeable to commence treatment. Patient got along well with other patients on the unit and followed unit protocol. Patient was compliant with the medications and denied any side effects throughout hospital course. Patient was started on his home medication of Zyprexa. The patient did test positive for methamphetamines prior to this admission. The following day, when evaluated by this provider, the patient does not recall why exactly he came to the hospital. He reports that he came to the hospital for medication adjustment however was informed that he presented as disorganized, agitated, and psychotic. Patient initially denied any methamphetamine use however later relented that he did use methamphetamines however refused to inform this provider when. The patient remained fixated on medication management including the administration of benzodiazepines and Fioricet. The patient also excessive strong desire not to return back to [facility]. This treatment team was made aware that the patient was not welcome back to his [facility] home due to him bringing methamphetamines onto the property. As per discussion with [facility], [facility] home for methamphetamines in his closet. On the day of discharge, the patient is not reporting any suicidal or homicidal ideation, intention, and/or plan. He is not reporting any auditory or visualizations. He is denying any paranoia or delusions. The patient reports no issues regarding sleep or his appetite. He remains concerned about his housing situation. He states that he would does not want to go back to [facility] however was informed that he would not be able to due to his actions and his methamphetamine use. Despite the adversity, and the patient remains calm and collected. He was counseled length importance of medication here and appropriate outpatient follow-up. Furthermore, the patient was counseled on abstaining from all substances, especially methamphetamines. Prior to discharge, family meeting will be arranged by manager social media to answer questions and ensure safety Mental status exam: General Appearance: Patient appears to be stated age is alert, pleasant, and cooperative. Patient is in no acute distress and has fair hygiene and grooming Behavior: Patient is calmly seated without any agitated behavior. Speech: Patient's speech is fluent and nonpressured. Mood/Affect: Patient reports their mood is "doing okay just nervous", affect is congruent and euthymic. Blunted at baseline. Suicidality/Homicidality: Patient denies having any suicidal or homicidal ideation intent or plan. Perceptions: Patient denies any auditory or visual hallucinations. Though content/process: There is no evidence of any delusional thought content and thought process is linear and goal-directed. Future oriented. Memory and concentration: AOX3, grossly intact for the purposes of this session. Can spell "WORLD" backwards correctly. Judgment and insight: Improved with guarded prognosis Vital Signs Temp 98.3 F 01/24/22 17:43 Pulse 101 H 01/24/22 17:43 Resp 14 01/24/22 17:43 BP 127/57 01/24/22 17:43 Pulse Ox 100 01/22/22 01:13 Impression: Acute psychosis - secondary to methamphetamine use Schizophrenia Stimulant use disorder Plan: -Continue with discharge today as patient has improved and stabilized psychiatrically and is not currently an imminent threat to himself and/or others. Patient will remain at chronically elevated risk for harm to self and/or others due to his impulsivity and polysubstance abuse. -Continue medications: Zyprexa 10 mg by mouth at bedtime for mood stabilization/psychosis Gabapentin 800 mg by mouth 4 times a day for seizure disorder -Patient was counseled on the need for medication compliance and appropriate follow-up at mental health and also primary care for medical issues. Patient verbalized understanding and agreed. -Social work to arrange for and conduct family meeting to ensure safety upon discharge and answer any questions/concerns. Social work also to arrange for patients follow up appointments with [facility] for psychiatric care along with follow up with primary care provider. -Patient counseled on abstaining from recreational drugs and marijuana and alcohol. Was informed/educated on the adverse effects on their physical and mental health. Patient verbally agreed and understood. Patient was offered substance abuse treatment however declined at this time. -Patient was instructed to return to the hospital or seek immediate medical care if their psychiatric or medical symptoms do worsen or reoccur. -Psychoeducation and supportive therapy provided to patient. Risks and benefits of pharmacological treatment versus the risks and benefits of nontreatment weight and discussed. Informed consent discussion held. Common side effects of psychotropics discussed such as, but not limited to headache, GI disturbance, sexual dysfunction, movement disorders, sedation, and orthostatic hypotension. Life threatening and blackbox warnings of prescribed medications also discussed. Potential risks of operating a vehicle or heavy machinery discussed with patient at length. Advised on importance of compliance and a reliable and responsible manner. Patient advised to review FDA consumer labeling of all medications prior to taking. Patient verbalized understanding of potential risks, and agrees with current treatment plan. Patient advised to medically contact physician/emergency personnel if any acute changes in condition occur. Allergies Allergy/AdvReac Type Severity Reaction Status Date / Time aripiprazole [From Abilify] Allergy Unknown Verified 01/21/22 18:49 fluphenazine HCl Allergy Unknown Verified 01/21/22 18:49 [From Prolixin] paliperidone [From Invega] Allergy Unknown Verified 01/21/22 18:49 propoxyphene Allergy Unknown Verified 01/21/22 18:49 [From Darvocet-N] risperidone [From Risperdal] Allergy Unknown Verified 01/21/22 18:49 ziprasidone [From Geodon] Allergy Unknown Verified 01/21/22 18:49 fluphenazine enanthate AdvReac Severe Trismus Verified 01/21/22 18:49 [From Prolixin] haloperidol [From Haldol] AdvReac Unknown Verified 01/21/22 18:49 Laboratory Results Urine Opiates Screen Not Detected (NotDetected) 01/21/22 19:20 Ur Oxycodone Screen Not Detected (NotDetected) 01/21/22 19:20 Urine Methadone Screen Not Detected (NotDetected) 01/21/22 19:20 Ur Propoxyphene Screen Not Detected (NotDetected) 01/21/22 19:20 Ur Barbiturates Screen Detected (NotDetected) H 01/21/22 19:20 U Tricyclic Antidepress Not Detected (NotDetected) 01/21/22 19:20 Ur Phencyclidine Scrn Not Detected (NotDetected) 01/21/22 19:20 Ur Amphetamines Screen Detected (NotDetected) H 01/21/22 19:20 U Methamphetamines Scrn Detected (NotDetected) H 01/21/22 19:20 U Benzodiazepines Scrn Not Detected (NotDetected) 01/21/22 19:20 Urine Cocaine Screen Not Detected (NotDetected) 01/21/22 19:20 U Marijuana (THC) Screen Not Detected (NotDetected) 01/21/22 19:20 Coronavirus (PCR) Not Detected (Not Detectd) 01/21/22 23:40 Patient Condition at Discharge: Stable Plan - Discharge Summary Discharge Rx Participant: No New Discharge Prescriptions: New hydrOXYzine pamoate [Vistaril] 25 mg PO QID 30 Days cap OLANZapine [ZyPREXA] 10 mg PO HS 30 Days tab Gabapentin [Neurontin] 800 mg PO QID 30 Days cap Discontinued hydrOXYzine pamoate [Vistaril] 25 mg PO QID 30 Days cap Gabapentin 800 mg PO QID OLANZapine [ZyPREXA] 10 mg PO BID@0800,2100 Discharge Medication List Gabapentin [Neurontin] 800 mg PO QID 30 Days cap 01/25/22 [Rx] OLANZapine [ZyPREXA] 10 mg PO HS 30 Days tab 01/25/22 [Rx] hydrOXYzine pamoate [Vistaril] 25 mg PO QID 30 Days cap 01/25/22 [Rx] Follow up Appointment(s)/Referral(s): [facility] [Outside] - 01/31/22 11:00 am (01/31 @ 11:00-12:00 Candace Joy ) Anna Gandhi MD [Primary Care Provider] - 1-2 days Patient Instructions/Handouts: Schizophrenia (DC), Psychotic Disorder (DC) Activity/Diet/Wound Care/Special Instructions: Activity and diet as tolerated. Avoid the use of street drugs and alcohol. Take all medications as prescribed. When you are in need of refills on your medications please contact your medical provider and/or outpatient psychiatrist to have this done. Please go to scheduled outpatient appointment for aftercare treatment. If symptoms return or become worse, call the crisis line at and/or go to the nearest emergency room for evaluation Discharge Disposition: HOME SELF-CARE
== END 2022-01-25 12:48 | disposition home or self-care (01) | DRG 885 ==
LOC: EC 18:14 → 3MHU 01-22 00:11
PROVIDERS: ADMIT Psychiatry & Neurology Psychiatry; ATTEND Psychiatry & Neurology Psychiatry
DX: F25.9 Schizoaffective disorder, unspecified (principal); R45.851 Suicidal ideations; F15.10 Other stimulant abuse, uncomplicated; F41.0 Panic disorder [episodic paroxysmal anxiety]; F60.0 Paranoid personality disorder; F60.2 Antisocial personality disorder; G40.909 Epilepsy, unspecified, not intractable, without status epilepticus; R45.850 Homicidal ideations; Z79.899 Other long term (current) drug therapy; Z87.891 Personal history of nicotine dependence; Z20.822 Contact with and (suspected) exposure to COVID-19
CPT/HCPCS: 80306; 82075; 87635; 99285

== ENCOUNTER 2022-02-01 12:06 | Emergency (ER) | payer MEDICARE, OTHER ==
[2022-02-01 12:40] VITALS: BP 143/98; PULSE 94; RESP 18; TEMP 98.6
--- NOTE | 2022-02-01 14:30 | ED ---
Psych HPI - General Source: patient, RN notes reviewed Mode of arrival: ambulatory Limitations: no limitations <Silvestre Robison - Last Filed: 02/01/22 14:29> <Misty Ashley - Last Filed: 02/01/22 19:03> - General Chief Complaint: Psychiatric Symptoms Stated Complaint: Mental Health Time Seen by Provider: 02/01/22 14:10 - History of Present Illness Initial Comments: This a 31-year-old male presents emergency Department for evaluation of psychiatric issues. Patient states he is here to check himself in the 3 [address]. Patient states she's been increasingly depressed, suicidal occasional homicidal. He has no reason for this. He states he is on Zyprexa. He states that he's been makinghis appointments at [facility]. Denies any physical complaints. Patient states she just needs help. Denies any current alcohol or drug use. (Silvestre Robison) - Related Data Previous Rx's Medication Instructions Recorded Gabapentin [Neurontin] 800 mg PO QID 30 Days cap 01/25/22 OLANZapine [ZyPREXA] 10 mg PO HS 30 Days tab 01/25/22 hydrOXYzine pamoate [Vistaril] 25 mg PO QID 30 Days cap 01/25/22 Allergies Allergy/AdvReac Type Severity Reaction Status Date / Time aripiprazole [From Abilify] Allergy Unknown Verified 02/01/22 15:54 fluphenazine HCl Allergy Unknown Verified 02/01/22 15:54 [From Prolixin] paliperidone [From Invega] Allergy Unknown Verified 02/01/22 15:54 propoxyphene Allergy Unknown Verified 02/01/22 15:54 [From Darvocet-N] risperidone [From Risperdal] Allergy Unknown Verified 02/01/22 15:54 ziprasidone [From Geodon] Allergy Unknown Verified 02/01/22 15:54 fluphenazine enanthate AdvReac Severe Trismus Verified 02/01/22 15:54 [From Prolixin] haloperidol [From Haldol] AdvReac Unknown Verified 02/01/22 15:54 Review of Systems ROS Other: All systems not noted in ROS Statement are negative. <Silvestre Robison - Last Filed: 02/01/22 14:29> ROS Other: All systems not noted in ROS Statement are negative. <Misty Ashley - Last Filed: 02/01/22 19:03> ROS Statement: Those systems with pertinent positive or pertinent negative responses have been documented in the HPI. Past Medical History Past Medical History: Seizure Disorder Additional Past Medical History / Comment(s): Schizophrenia, right arm fracture, degenerative disc to lower back, and right wrist plate and screws History of Any Multi-Drug Resistant Organisms: None Reported Past Surgical History: Orthopedic Surgery Additional Past Surgical History / Comment(s): mouth surgery, reduction of right arm fracture. Past Anesthesia/Blood Transfusion Reactions: No Reported Reaction Past Psychological History: Anxiety, Panic Disorder, Schizophrenia Smoking Status: Former smoker Past Alcohol Use History: Rare Past Drug Use History: Marijuana - Past Family History Mother Brother(s) Family Medical History: Unable to Obtain <Silvestre Robison - Last Filed: 02/01/22 14:29> General Exam Limitations: no limitations General appearance: alert, in no apparent distress Head exam: Present: atraumatic, normocephalic, normal inspection Eye exam: Present: normal appearance, PERRL, EOMI. Absent: scleral icterus, conjunctival injection, periorbital swelling ENT exam: Present: normal exam, normal oropharynx, mucous membranes moist Neck exam: Present: normal inspection, full ROM. Absent: tenderness, meningismus, lymphadenopathy Respiratory exam: Present: normal lung sounds bilaterally. Absent: respiratory distress, wheezes, rales, rhonchi, stridor Cardiovascular Exam: Present: regular rate, normal rhythm, normal heart sounds. Absent: systolic murmur, diastolic murmur, rubs, gallop, clicks Neurological exam: Present: alert, oriented X3 Psychiatric exam: Present: depressed, flat affect <Silvestre Robison - Last Filed: 02/01/22 14:29> Course Vital Signs 02/01/22 12:38 Temperature 98.6 F Pulse Rate 94 Respiratory 18 Rate Blood Pressure 143/98 O2 Sat by Pulse 98 Oximetry Medical Decision Making <Misty Ashley - Last Filed: 02/01/22 19:03> - Medical Decision Making Patient evaluated by EPS and stable for discharge home. Safety plan on file. (Misty Ashley) - Lab Data Lab Results 02/01/22 Range/Units 15:00 Urine Opiates Screen Not Detected (NotDetected) Ur Oxycodone Screen Not Detected (NotDetected) Urine Methadone Screen Not Detected (NotDetected) Ur Propoxyphene Screen Not Detected (NotDetected) Ur Barbiturates Screen Detected H (NotDetected) U Tricyclic Antidepress Not Detected (NotDetected) Ur Phencyclidine Scrn Not Detected (NotDetected) Ur Amphetamines Screen Detected H (NotDetected) U Methamphetamines Scrn Not Detected (NotDetected) U Benzodiazepines Scrn Not Detected (NotDetected) Urine Cocaine Screen Not Detected (NotDetected) U Marijuana (THC) Screen Not Detected (NotDetected) Disposition <Silvestre Robison M - Last Filed: 02/01/22 14:29> Is patient prescribed a controlled substance at d/c from ED?: No Time of Disposition: 19:01 <Misty Ashley - Last Filed: 02/01/22 19:03> Clinical Impression: Depression Disposition: HOME SELF-CARE Condition: Stable Instructions (If sedation given, give patient instructions): Depression (ED) Referrals: Anna Gandhi MD [Primary Care Provider] - 1-2 days
[2022-02-01 15:34] LABS: Amphetamine Screen,Urine Detected (NotDetected); Barbiturate Screen,Urine Detected (NotDetected); Benzodiazepines Screen,Urine Not Detected (NotDetected); Cocaine Screen,Urine Not Detected (NotDetected); Methadone Screen, Urine Not Detected (NotDetected); Opiate Screen,Urine Not Detected (NotDetected); Oxycodone Screen, Urine Not Detected (NotDetected); Phencyclidine Screen,Urine Not Detected (NotDetected); Tricyclic Antidepressant,Urine Not Detected (NotDetected); Urn Cannabinoid Scrn Not Detected (NotDetected)
== END 2022-02-01 19:30 | disposition home or self-care (01) ==
LOC: EC 12:06
DX: F32.A Depression, unspecified (principal); Z87.891 Personal history of nicotine dependence; Z88.8 Allergy status to other drugs, medicaments and biological substances
CPT/HCPCS: 80306; 82075; 99284

== ENCOUNTER 2022-05-25 16:56 | Inpatient (IN) | payer MEDICARE, MEDICAID ==
--- NOTE | 2022-05-25 17:40 | ED ---
General Adult HPI - General Chief complaint: Psychiatric Symptoms Stated complaint: mental health Time Seen by Provider: 05/25/22 17:25 Source: patient Mode of arrival: ambulatory Limitations: no limitations - History of Present Illness Initial comments: Dictation was produced using [employer] dictation software. please excuse any grammatical, word or spelling errors. Chief Complaint: 31-year-old male presents emergency department for anxiety and suicidal ideation History of Present Illness: 31-year-old male has past medical history of schizophrenia and seizure disorder. Patient states that he's been feeling suicidal recently. He does not have a specific plan. Patient denies any homicidal ideation. No visual auditory hallucinations. Patient wants to check himself into to inpatient psychiatric unit. Patient states he has not been compliant with his psychiatric medications. The ROS documented in this emergency department record has been reviewed and confirmed by me. Those systems with pertinent positive or negative responses have been documented in the HPI. All other systems are other negative and/or noncontributory. PHYSICAL EXAM: General Impression: Alert and oriented x3, not in acute distress HEENT: Normocephalic atraumatic, extra-ocular movements intact, pupils equal and reactive to light bilaterally, mucous membranes moist. Cardiovascular: Heart regular rate and rhythm Chest: Able to complete full sentences, no retractions, no tachypnea Musculoskeletal:no peripheral edema Motor: no focal deficits noted Neurological: CN II-XII grossly intact, no focal motor or sensory deficits noted Skin: Intact with no visualized rashes Psych: Normal affect and mood ED course: 31-year-old male presents emergency department for suicidal ideation, anxiety. States that he stressed out. Vital signs upon arrival are within acceptable limits. Physical examination is benign. Patient medically cleared for EPS evaluation. Patient admitted to inpatient psychiatric unit per EPS recommendations. - Related Data Home Medications Medication Instructions Recorded Confirmed Gabapentin 800 mg PO QID 05/25/22 05/25/22 Previous Rx's Medication Instructions Recorded OLANZapine [ZyPREXA] 10 mg PO HS 30 Days tab 01/25/22 hydrOXYzine pamoate [Vistaril] 25 mg PO QID 30 Days cap 01/25/22 Allergies Allergy/AdvReac Type Severity Reaction Status Date / Time aripiprazole [From Abilify] Allergy Unknown Verified 05/25/22 18:25 fluphenazine HCl Allergy Unknown Verified 05/25/22 18:25 [From Prolixin] paliperidone [From Invega] Allergy Unknown Verified 05/25/22 18:25 propoxyphene Allergy Unknown Verified 05/25/22 18:25 [From Darvocet-N] risperidone [From Risperdal] Allergy Unknown Verified 05/25/22 18:25 ziprasidone [From Geodon] Allergy Unknown Verified 05/25/22 18:25 fluphenazine enanthate AdvReac Severe Trismus Verified 05/25/22 18:25 [From Prolixin] haloperidol [From Haldol] AdvReac Unknown Verified 05/25/22 18:25 Review of Systems ROS Statement: Those systems with pertinent positive or pertinent negative responses have been documented in the HPI. ROS Other: All systems not noted in ROS Statement are negative. Past Medical History Past Medical History: Seizure Disorder Additional Past Medical History / Comment(s): Schizophrenia, right arm fracture, degenerative disc to lower back, and right wrist plate and screws History of Any Multi-Drug Resistant Organisms: None Reported Past Surgical History: Orthopedic Surgery Additional Past Surgical History / Comment(s): mouth surgery, reduction of right arm fracture. Past Anesthesia/Blood Transfusion Reactions: No Reported Reaction Past Psychological History: Anxiety, Panic Disorder, Schizophrenia Smoking Status: Former smoker Past Alcohol Use History: Rare Past Drug Use History: Marijuana - Past Family History Mother Brother(s) Family Medical History: Unable to Obtain General Exam Limitations: no limitations Course Vital Signs 05/25/22 17:21 Temperature 97.8 F Pulse Rate 99 Respiratory 20 Rate Blood Pressure 135/82 O2 Sat by Pulse 97 Oximetry Medical Decision Making - Lab Data Lab Results 05/25/22 05/25/22 Range/Units 17:55 21:05 Urine Opiates Screen Not Detected (NotDetected) Ur Oxycodone Screen Not Detected (NotDetected) Urine Methadone Screen Not Detected (NotDetected) Ur Propoxyphene Screen Not Detected (NotDetected) Ur Barbiturates Screen Not Detected (NotDetected) U Tricyclic Antidepress Not Detected (NotDetected) Ur Phencyclidine Scrn Not Detected (NotDetected) Ur Amphetamines Screen Not Detected (NotDetected) U Methamphetamines Scrn Not Detected (NotDetected) U Benzodiazepines Scrn Not Detected (NotDetected) Urine Cocaine Screen Not Detected (NotDetected) U Marijuana (THC) Screen Not Detected (NotDetected) Coronavirus (PCR) Not Detected (Not Detectd) Disposition Clinical Impression: Suicidal ideation Disposition: ADMITTED IP TO THIS HOSP Condition: Fair
[2022-05-25 18:14] LABS: Amphetamine Screen,Urine Not Detected (NotDetected); Barbiturate Screen,Urine Not Detected (NotDetected); Benzodiazepines Screen,Urine Not Detected (NotDetected); Cocaine Screen,Urine Not Detected (NotDetected); Methadone Screen, Urine Not Detected (NotDetected); Opiate Screen,Urine Not Detected (NotDetected); Oxycodone Screen, Urine Not Detected (NotDetected); Phencyclidine Screen,Urine Not Detected (NotDetected); Tricyclic Antidepressant,Urine Not Detected (NotDetected); Urn Cannabinoid Scrn Not Detected (NotDetected)
[2022-05-25] MEDS ORDERED: LORazepam 1 MG TAB PO STA (21:05)
[2022-05-25] MEDS ORDERED: OLANZapine 10 MG VIAL IM PRN (23:02)
[2022-05-25] MEDS ORDERED: MAG HYDROX/AL HYDROX/SIMETH 30 ML CUP PO PRN (23:02)
[2022-05-25] MEDS ORDERED: OLANZapine 5 MG TAB PO PRN (23:02)
[2022-05-25] MEDS: hydrOXYzine pamoate 25 MG CAP PO SCH (23:51)
[2022-05-25] MEDS: OLANZapine 10 MG TAB PO SCH (23:51)
[2022-05-25] MEDS: GABAPENTIN 400 MG CAP PO SCH (23:51)
[2022-05-25] MEDS: ACETAMINOPHEN TAB 325 MG TAB PO PRN (23:52)
[2022-05-26] MEDS: NICOTINE 14MG/24HR PATCH TRANSDERM SCH (08:27)
[2022-05-26] MEDS: hydrOXYzine pamoate 25 MG CAP PO SCH ×4 (08:27→20:42)
[2022-05-26] MEDS: GABAPENTIN 400 MG CAP PO SCH ×4 (08:27→20:43)
[2022-05-26] MEDS: ACETAMINOPHEN TAB 325 MG TAB PO PRN ×3 (09:55→19:25)
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
[2022-05-26] MEDS: OLANZapine 10 MG TAB PO SCH (20:43)
[2022-05-26] MEDS ORDERED: AMITRIPTYLINE HCL 25 MG TAB PO SCH (21:00)
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
[2022-05-27] MEDS: hydrOXYzine pamoate 25 MG CAP PO SCH ×4 (07:56→19:42)
[2022-05-27] MEDS: GABAPENTIN 400 MG CAP PO SCH ×4 (07:57→19:43)
[2022-05-27] MEDS: BUTALB/APAP/CAFF 50-325-40MG TAB PO PRN ×4 (08:00→19:42)
[2022-05-27] MEDS: NICOTINE 14MG/24HR PATCH TRANSDERM SCH (08:17)
--- NOTE | 2022-05-27 11:47 | P.PN ---
Progress Note - Text Progress Note Date: 05/27/22 Interval History: Patient was seen wandering the hallways and was directable and agreeable to speak with assembly instructions writer in the office. The patient is apologetic for his outburst yesterday. The patient was yelling and angry after being informed that he would be prescribed Fioricet by his medicine doctor however the medication was not started in a timely fashion. He reports that he has since received the medication and is feeling significantly better. He is currently denying any suicidal or homicidal ideation, intention, and/or plan. He is not reporting any auditory or visual hallucinations. He denies any paranoia or other delusions. Patient has been adherent with his medications and is not reporting any significant side effects at this time. Patient continues to endorse significant anxiety however, has been attending groups and is involved in individual and milieu therapies. Mental Status Exam: General Appearance: Patient appears to be stated age is alert, directable, and cooperative. Behavior: Patient is calmly seated without any agitated behavior. Speech: Patient's speech is fluent and nonpressured. Mood/Affect: Mood is "anxious," affect is incongruent and euthymic. Suicidality/Homicidality: Patient denies having any suicidal or homicidal ideation intent or plan. Perceptions: Patient denies any visual hallucinations and denies any auditory hallucinations Though content/process: There is no evidence of any delusional thought content and thought process is linear and goal-directed. Memory and concentration: AOX3, grossly intact for the purposes of this session Judgment and insight: Improving mildly Vital Signs Temp 97.9 F 05/27/22 06:20 Pulse 69 05/27/22 06:20 Resp 18 05/27/22 06:20 BP 108/73 05/27/22 06:20 Pulse Ox 97 05/27/22 06:20 FiO2 Assessment Schizophrenia Anxiety disorder, unspecified Plan: -Patient continues to meet criteria for inpatient psychiatric admission for symptom stabilization and safety. Patient has signed adult voluntary form and medication consent and was placed in patient's chart. -Medications: Zyprexa 10 mg by mouth at bedtime for psychosis Gabapentin 800 mg by mouth 4 times a day for herself the police for anxiety and for neuropathic pain Vistaril 25 mg by mouth 4 times a day for anxiety Increase Elavil to 50 mg by mouth at bedtime for depression/anxiety/migraines -When necessary Zyprexa and Vistaril for agitation/aggression. -NRT - nicotine patch -SW on board for discharge planning. Encouraged the patient to participate in milieu.
[2022-05-27] MEDS: OLANZapine 10 MG TAB PO SCH (19:42)
[2022-05-27] MEDS: AMITRIPTYLINE HCL 50 MG TAB PO SCH (19:43)
[2022-05-28] MEDS: BUTALB/APAP/CAFF 50-325-40MG TAB PO PRN ×5 (06:16→21:51)
[2022-05-28] MEDS: GABAPENTIN 400 MG CAP PO SCH ×4 (08:03→20:14)
[2022-05-28] MEDS: NICOTINE 14MG/24HR PATCH TRANSDERM SCH (08:03)
[2022-05-28] MEDS: hydrOXYzine pamoate 25 MG CAP PO SCH ×4 (08:03→20:14)
--- NOTE | 2022-05-28 16:31 | P.PN ---
Progress Note - Text Progress Note Date: 05/28/22 Interval history: Patient was seen wandering the hallways and was directable and agreeable to speak with residential mortgage underwriter. He reports his mood is "a lot better" and thoughts are somewhat circumstantial. At this time patient denies any suicidal or homicidal ideations, intent or plan. He denies any auditory or visual hallucinations, and does not appear to be attending to internal stimuli. Patient denies any side effects from the medications and has been compliant with meds. Mental status exam: General Appearance: Patient appears to be stated age, is slender, dressed in clean, casual attire. Behavior: No agitated behavior. Patient is calm and directable. Speech: Patient's speech is fluent and non-pressured. Mood/Affect: Mood is improving mildly, affect is congruent and constricted. Suicidality/Homicidality: Patient denies having any suicidal or homicidal ideation intent or plan. Perceptions: Patient denies any auditory or visual hallucinations. Though content/process: There is no evidence of any delusional thought content and thought process is linear and goal-directed. Memory and concentration: AOX3, grossly intact for the purposes of this session Judgment and insight: improving mildly Assessment/Plan: Continue with current diagnosis. Patient continues to meet criteria for inpatient psychiatric admission for symptom stabilization and safety. Patient will be maintained on current psychotropic medication regimen. Monitor for medication compliance and for any psychotropic medication side effects. Will continue to monitor ongoing response to treatment. Encouraged participation in milieu.
[2022-05-28] MEDS: AMITRIPTYLINE HCL 50 MG TAB PO SCH (20:13)
[2022-05-28] MEDS: OLANZapine 10 MG TAB PO SCH (20:13)
[2022-05-29] MEDS: BUTALB/APAP/CAFF 50-325-40MG TAB PO PRN ×5 (01:48→21:33)
[2022-05-29] MEDS: ACETAMINOPHEN TAB 325 MG TAB PO PRN ×3 (01:50→16:24)
[2022-05-29] MEDS: hydrOXYzine pamoate 25 MG CAP PO SCH ×4 (08:12→21:35)
[2022-05-29] MEDS: GABAPENTIN 400 MG CAP PO SCH ×4 (08:13→21:33)
--- NOTE | 2022-05-29 19:38 | P.PN ---
Progress Note - Text Progress Note Date: 05/29/22 Interval history: Patient was seen wandering the hallways and was directable and agreeable to speak with production underwriter. He reports his mood is "good", states he feels calmer today. At this time patient denies any suicidal or homicidal ideations, intent or plan. He denies any auditory or visual hallucinations, and does not appear to be attending to internal stimuli. Patient denies any side effects from the medications and has been compliant with meds. Mental status exam: General Appearance: Patient appears to be stated age, is slender, dressed in clean, casual attire. Behavior: No agitated behavior. Patient is calm and directable. Speech: Patient's speech is fluent and non-pressured. Mood/Affect: Mood is improving mildly, affect is congruent and constricted. Suicidality/Homicidality: Patient denies having any suicidal or homicidal ideation intent or plan. Perceptions: Patient denies any auditory or visual hallucinations. Though content/process: There is no evidence of any delusional thought content and thought process is linear and goal-directed. Memory and concentration: AOX3, grossly intact for the purposes of this session Judgment and insight: improving mildly Assessment/Plan: Continue with current diagnosis. Patient continues to meet criteria for in patient psychiatric admission for symptom stabilization and safety. Patient will be maintained on current psychotropic medication regimen. Monitor for medication compliance and for any psychotropic medication side effects. Will continue to monitor ongoing response to treatment. Encouraged participation in milieu.
[2022-05-29] MEDS: AMITRIPTYLINE HCL 50 MG TAB PO SCH (21:33)
[2022-05-29] MEDS: OLANZapine 10 MG TAB PO SCH (21:33)
[2022-05-30] MEDS: BUTALB/APAP/CAFF 50-325-40MG TAB PO PRN ×4 (07:26→20:21)
[2022-05-30] MEDS: GABAPENTIN 400 MG CAP PO SCH ×4 (08:46→20:21)
[2022-05-30] MEDS: hydrOXYzine pamoate 25 MG CAP PO SCH ×4 (08:46→20:21)
[2022-05-30] MEDS: ACETAMINOPHEN TAB 325 MG TAB PO PRN ×3 (09:02→22:54)
--- NOTE | 2022-05-30 13:30 | P.PN ---
Progress Note - Text Progress Note Date: 05/30/22 Interval History: Patient was seen wandering the hallways and was directable and agreeable to speak with play writer in the office. The patient was that he is feeling well. He states that he is sleeping well and eating well. He denies any suicidal or homicidal ideation, intention, and/or plan. He is not reporting any auditory or visual hallucinations. He denies any paranoia or other delusions. The patient has been adherent with his medication is not reporting any significant side effects at this time. The patient only reports mild anxiety. Mental Status Exam: General Appearance: Patient appears to be stated age is alert, directable, and cooperative. Behavior: Patient is calmly seated without any agitated behavior. Speech: Patient's speech is fluent and nonpressured. Mood/Affect: Mood is "feeling better," affect is euthymic Suicidality/Homicidality: Patient denies having any suicidal or homicidal ideation intent or plan. Perceptions: Patient denies any visual hallucinations and denies any auditory hallucinations Though content/process: There is no evidence of any delusional thought content and thought process is linear and goal-directed. Memory and concentration: AOX3, grossly intact for the purposes of this session Judgment and insight: Improving mildly Vital Signs Temp 97.5 F L 05/29/22 00:17 Pulse 93 05/29/22 00:17 Resp 14 05/29/22 00:17 BP 115/82 05/29/22 00:17 Pulse Ox 97 05/27/22 06:20 FiO2 Intake & Output 05/29/22 05/30/22 05/30/22 18:59 06:59 18:59 Weight 66 kg Assessment Schizophrenia Anxiety disorder, unspecified Plan: -Patient continues to meet criteria for inpatient psychiatric admission for symptom stabilization and safety. Patient has signed adult voluntary form and medication consent and was placed in patient's chart. -Medications: Zyprexa 10 mg by mouth at bedtime for psychosis Gabapentin 800 mg by mouth 4 times a day for herself the police for anxiety and for neuropathic pain Vistaril 25 mg by mouth 4 times a day for anxiety Increase Elavil to 75 mg by mouth at bedtime for depression/anxiety/migraines as per patient request -When necessary Zyprexa and Vistaril for agitation/aggression. -NRT - nicotine patch -SW on board for discharge planning. Encouraged the patient to participate in milieu.
[2022-05-30] MEDS: OLANZapine 10 MG TAB PO SCH (20:21)
[2022-05-30] MEDS ORDERED: AMITRIPTYLINE HCL 50 MG TAB PO SCH (21:00)
[2022-05-31] MEDS: BUTALB/APAP/CAFF 50-325-40MG TAB PO PRN ×3 (04:42→11:46)
[2022-05-31 06:44] VITALS: BP 118/69; PULSE 92; RESP 18; TEMP 97.8
[2022-05-31] MEDS: ACETAMINOPHEN TAB 325 MG TAB PO PRN (07:43)
[2022-05-31] MEDS: hydrOXYzine pamoate 25 MG CAP PO SCH (09:17)
[2022-05-31] MEDS: GABAPENTIN 400 MG CAP PO SCH (09:18)
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
== END 2022-05-31 15:37 | disposition home or self-care (01) | DRG 885 ==
LOC: EC 16:56 → 3MHU 22:57
PROVIDERS: ADMIT Psychiatry & Neurology Psychiatry; ATTEND Psychiatry & Neurology Psychiatry
DX: F20.9 Schizophrenia, unspecified (principal); R45.851 Suicidal ideations; G40.909 Epilepsy, unspecified, not intractable, without status epilepticus; Z91.138 Patient's unintentional underdosing of medication regimen for other reason; F15.10 Other stimulant abuse, uncomplicated; Z20.822 Contact with and (suspected) exposure to COVID-19; F41.1 Generalized anxiety disorder; F32.A Depression, unspecified; G43.909 Migraine, unspecified, not intractable, without status migrainosus; T50.906A Underdosing of unspecified drugs, medicaments and biological substances, initial encounter; Z79.899 Other long term (current) drug therapy; Z87.891 Personal history of nicotine dependence; Z56.0 Unemployment, unspecified; Z59.00 Homelessness unspecified; Z71.51 Drug abuse counseling and surveillance of drug abuser; Z71.41 Alcohol abuse counseling and surveillance of alcoholic; Z88.5 Allergy status to narcotic agent; Z88.8 Allergy status to other drugs, medicaments and biological substances
CPT/HCPCS: 80306; 82075; 87635; 99285

== ENCOUNTER 2022-06-27 18:35 | Inpatient (IN) | payer MEDICARE, MEDICAID ==
[2022-06-27] MEDS ORDERED: LORazepam 1 MG TAB PO STA (19:06)
--- NOTE | 2022-06-27 19:16 | ED ---
General Adult HPI - General Chief complaint: Psychiatric Symptoms Stated complaint: mental health Time Seen by Provider: 06/27/22 19:00 Source: patient, RN notes reviewed, old records reviewed Mode of arrival: ambulatory Limitations: no limitations - History of Present Illness Initial comments: This is a 31-year-old male presents emergency Department because he becoming more more anxious and thinking about suicide more often. Patient has no specific plan but he states is old the feeling of suicide is building up inside him and is afraid he may harm himself. Patient denies any drug use or alcohol use per patient denies any physical complaints today. Patient states she's been here multiple times before and he would like to be admitted as he usually does help him. - Related Data Previous Rx's Medication Instructions Recorded Amitriptyline HCl [Elavil] 75 mg PO HS 30 Days tab 05/31/22 Butalb/APAP/Caff 50-325-40Mg 1 each PO Q6HR PRN 15 Days tab 05/31/22 [Fioricet 50-325-40] Gabapentin [Neurontin] 800 mg PO QID 30 Days cap 05/31/22 OLANZapine [ZyPREXA] 10 mg PO HS 30 Days tab 05/31/22 hydrOXYzine pamoate [Vistaril] 25 mg PO QID 30 Days cap 05/31/22 Allergies Allergy/AdvReac Type Severity Reaction Status Date / Time aripiprazole [From Abilify] Allergy Unknown Verified 05/25/22 18:25 fluphenazine HCl Allergy Unknown Verified 05/25/22 18:25 [From Prolixin] paliperidone [From Invega] Allergy Unknown Verified 05/25/22 18:25 propoxyphene Allergy Unknown Verified 05/25/22 18:25 [From Darvocet-N] risperidone [From Risperdal] Allergy Unknown Verified 05/25/22 18:25 ziprasidone [From Geodon] Allergy Unknown Verified 05/25/22 18:25 fluphenazine enanthate AdvReac Severe Trismus Verified 05/25/22 18:25 [From Prolixin] haloperidol [From Haldol] AdvReac Unknown Verified 05/25/22 18:25 Review of Systems ROS Statement: Those systems with pertinent positive or pertinent negative responses have been documented in the HPI. ROS Other: All systems not noted in ROS Statement are negative. Past Medical History Past Medical History: Seizure Disorder Additional Past Medical History / Comment(s): Schizophrenia, right arm fracture, degenerative disc to lower back, and right wrist plate and screws History of Any Multi-Drug Resistant Organisms: None Reported Past Surgical History: Orthopedic Surgery Additional Past Surgical History / Comment(s): mouth surgery, reduction of right arm fracture. Past Anesthesia/Blood Transfusion Reactions: No Reported Reaction Past Psychological History: Anxiety, Panic Disorder, Schizophrenia Smoking Status: Former smoker Past Alcohol Use History: Rare Past Drug Use History: Marijuana - Past Family History Mother Brother(s) Family Medical History: Unable to Obtain General Exam - General Exam Comments Initial Comments: GENERAL: Patient is well-developed and well-nourished. Patient is nontoxic and well- hydrated and is in no acute distress. ENT: Neck is soft and supple. No significant lymphadenopathy is noted. Oropharynx is clear. Moist mucous membranes. Neck has full range of motion without eliciting any pain. EYES: The sclera were anicteric and conjunctiva were pink and moist. Extraocular movements were intact and pupils were equal round and reactive to light. Eyelids were unremarkable. PULMONARY: Unlabored respirations. Good breath sounds bilaterally. No audible rales rhonchi or wheezing was noted. CARDIOVASCULAR: There is a regular rate and rhythm without any murmurs gallops or rubs. ABDOMEN: Soft and nontender with normal bowel sounds. SKIN: Skin is clear with no lesions or rashes and otherwise unremarkable. NEUROLOGIC: Patient is alert and oriented x3. Cranial nerves II through XII are grossly intact. MUSCULOSKELETAL: Normal extremities with adequate strength and full range of motion. LYMPHATICS: No significant lymphadenopathy is noted PSYCHIATRIC: Patient states he suicidal but does not have a plan yet Limitations: no limitations Course Vital Signs 06/27/22 18:43 Temperature 98 F Pulse Rate 100 Respiratory 20 Rate Blood Pressure 145/81 O2 Sat by Pulse 100 Oximetry Medical Decision Making - Medical Decision Making EPS evaluated the patient and determined the patient was going to be admitted. Disposition Clinical Impression: Acute anxiety, Suicidal ideation Disposition: ADMITTED IP TO THIS HOSP Referrals: Anna Gandhi MD [Primary Care Provider] - 1-2 days Time of Disposition: 20:21
[2022-06-27 20:36] LABS: Cocaine Screen,Urine Not Detected (NotDetected); Phencyclidine Screen,Urine Not Detected (NotDetected); Urn Cannabinoid Scrn Not Detected (NotDetected)
[2022-06-27 20:37] LABS: Amphetamine Screen,Urine Detected (NotDetected); Barbiturate Screen,Urine Not Detected (NotDetected); Benzodiazepines Screen,Urine Not Detected (NotDetected); Methadone Screen, Urine Not Detected (NotDetected); Opiate Screen,Urine Not Detected (NotDetected); Oxycodone Screen, Urine Not Detected (NotDetected); Tricyclic Antidepressant,Urine Detected (NotDetected)
[2022-06-27] MEDS ORDERED: MAGNESIUM HYDROXIDE 2,400 MG/10 ML CUP PO PRN (21:43)
[2022-06-27] MEDS ORDERED: LORazepam 1 MG TAB PO PRN (21:43)
[2022-06-27] MEDS ORDERED: MAG HYDROX/AL HYDROX/SIMETH 30 ML CUP PO PRN (21:43)
[2022-06-27] MEDS ORDERED: LORazepam 2 MG/ML INJ IM PRN (21:50)
[2022-06-27] MEDS: hydrOXYzine pamoate 25 MG CAP PO SCH (22:06)
[2022-06-27] MEDS: BUTALB/APAP/CAFF 50-325-40MG TAB PO PRN (22:06)
[2022-06-27] MEDS: GABAPENTIN 400 MG CAP PO SCH (22:07)
[2022-06-27 23:28] VITALS: BP 137/65; PULSE 128; RESP 18; TEMP 97.5
[2022-06-28] MEDS: NICOTINE 14MG/24HR PATCH TRANSDERM SCH (08:04)
[2022-06-28] MEDS: hydrOXYzine pamoate 25 MG CAP PO SCH ×4 (08:04→20:16)
[2022-06-28] MEDS: GABAPENTIN 400 MG CAP PO SCH ×4 (08:06→20:16)
[2022-06-28] MEDS: BUTALB/APAP/CAFF 50-325-40MG TAB PO PRN ×3 (08:06→20:17)
[2022-06-28] MEDS ORDERED: hydrOXYzine HCL 50 MG/ML 1 ML VIAL IM PRN (09:03)
[2022-06-28] MEDS ORDERED: OLANZapine 10 MG VIAL IM PRN (11:50)
--- NOTE | 2022-06-28 11:53 | P.HP ---
Psychiatric H&P - . H&P Date: 06/28/22 History & Physical: Allergies Allergy/AdvReac Type Severity Reaction Status Date / Time aripiprazole [From Abilify] Allergy Unknown Verified 05/25/22 18:25 fluphenazine HCl Allergy Unknown Verified 05/25/22 18:25 [From Prolixin] paliperidone [From Invega] Allergy Unknown Verified 05/25/22 18:25 propoxyphene Allergy Unknown Verified 05/25/22 18:25 [From Darvocet-N] risperidone [From Risperdal] Allergy Unknown Verified 05/25/22 18:25 ziprasidone [From Geodon] Allergy Unknown Verified 05/25/22 18:25 fluphenazine enanthate AdvReac Severe Trismus Verified 05/25/22 18:25 [From Prolixin] haloperidol [From Haldol] AdvReac Unknown Verified 05/25/22 18:25 Vital Signs Temp 97.5 F L 06/27/22 23:14 Pulse 128 H 06/27/22 23:14 Resp 18 06/27/22 23:14 BP 137/65 06/27/22 23:14 Pulse Ox 100 06/27/22 18:43 FiO2 Intake & Output 06/27/22 06/28/22 06/28/22 18:59 06:59 18:59 Weight 77.111 kg 67.2 kg Laboratory Last Values Urine Opiates Screen Not Detected (NotDetected) 06/27/22 20:04 Ur Oxycodone Screen Not Detected (NotDetected) 06/27/22 20:04 Urine Methadone Screen Not Detected (NotDetected) 06/27/22 20:04 Ur Propoxyphene Screen Not Detected (NotDetected) 06/27/22 20:04 Ur Barbiturates Screen Not Detected (NotDetected) 06/27/22 20:04 U Tricyclic Antidepress Detected (NotDetected) H 06/27/22 20:04 Ur Phencyclidine Scrn Not Detected (NotDetected) 06/27/22 20:04 Ur Amphetamines Screen Detected (NotDetected) H 06/27/22 20:04 U Methamphetamines Scrn Not Detected (NotDetected) 06/27/22 20:04 U Benzodiazepines Scrn Not Detected (NotDetected) 06/27/22 20:04 Urine Cocaine Screen Not Detected (NotDetected) 06/27/22 20:04 U Marijuana (THC) Screen Not Detected (NotDetected) 06/27/22 20:04 Coronavirus (PCR) Not Detected (Not Detectd) 06/27/22 20:04 06/28/22 11:52 IDENTIFYING DATA: Patient is a single, unemployed, 31-year-old male with significant history of acute psychosis, methamphetamine abuse, and schizophrenia presented to our hospital on 06/27/2022, brought in the hospital voluntarily for suicidal ideation HPI: Patient presented to the hospital, brought in by his guardian mother, complaining of him being noncompliant with his medications. As previous report, the patient reported that he was very anxious and unable to take care of himself. He reported that he wants to be restarted on his medications. He was also noted to be cooperative by staff. [facility] reported to this provider during the team meeting that he was assessed by the ACT team earlier yesterday and did not report any significant psychiatric issues or concerns and denied any suicidal or homicidal ideation, intention, and/or plan. Upon assessment on the psychiatric unit, the patient states that he is not suicidal or homicidal however when informed that he would be unable to stay here for the 3 days that he is requesting, the patient states that he is suicidal. He expresses that he is feeling extremely stressed with the situation at home and that he has been lacking of permanent housing. He reports this is his primary stressor as well as his ability to get along with his mother. He reports no issues with sleep or appetite. He denies any auditory or visual hallucinations. He reports no paranoia or other delusions. Urinary drug screen was positive for amphetamines. Patient however is denying any use. PAST PSYCHIATRIC HISTORY: Patient reports that he was presented diagnosed with anxiety. The patient has had previous home medication regimens of Zyprexa, Vistaril, and gabapentin but was most recently on a regimen of Elavil and gabapentin and Vistaril. Patient was last hospitalized on our psychiatric unit in April 2022. He is open with [facility] and the ACT team. Patient denies any history of suicide attempts in the past. PMH: Past Medical History: Seizure Disorder Additional Past Medical History / Comment(s): Schizophrenia, right arm fracture, degenerative disc to lower back, and right wrist plate and screws History of Any Multi-Drug Resistant Organisms: None Reported Past Surgical History: Orthopedic Surgery Additional Past Surgical History / Comment(s): mouth surgery, reduction of right arm fracture. Past Anesthesia/Blood Transfusion Reactions: No Reported Reaction Past Psychological History: Anxiety, Panic Disorder, Schizophrenia Smoking Status: Former smoker Past Alcohol Use History: Rare Past Drug Use History: Marijuana ALLERGIES: As per EMR CHEMICAL DEPENDENCY HISTORY: The patient has a history of methamphetamine use and other substance abuse however did test positive for amphetamines upon this admission. He is currently denying any alcohol, marijuana, or illicit drug use. FAMILY PSYCHIATRIC/SUBSTANCE USE HISTORY: The patient does not report any significant family history SOCIAL HISTORY: Patient has been living with his mother. He states that he is now currently homeless. He receives Social Security disability. MENTAL STATUS EXAM: General Appearance: Patient appears to be stated age is alert, directable, and attempts to cooperate. Patient appears to have slightly disheveled hygiene and grooming. Behavior: Patient is seated without any agitated behavior. Eye contact is appropriate Speech: Patient's speech is fluent and nonpressured. Mood/Affect: Patient reports their mood is depressed, affect is irritable. Suicidality/Homicidality: Patient denies any suicidal or homicidal ideation initially however reported suicidal ideation when informed that he would be unable to stay here for 3 days. Perceptions: Patient denies any visual hallucinations and denies any auditory hallucinations Though content/process: There is no evidence of any delusional thought content and thought process is linear and goal-directed. Patient appears to be manipu lative. Memory and concentration: AOX3, grossly intact for the purposes of this session. Can spell "WORLD" backwards Judgment and insight: poor STRENGTHS/WEAKNESSES: Strength is that the patient is resourceful. Weakness that the patient is medication seeking and appears to have secondary gain intentions. INTELLECT: average IMPRESSIONS: Generalized anxiety disorder Rule out malingering PLAN: -Patient is admitted under voluntary status to [facility] for stabilization of psychiatric symptoms and safety. -Medications : Mood stabilization Continue Elavil 75 mg by mouth at bedtime for depression/anxiety/migraines Vistaril 25 mg 4 times a day -Zyprexa and vistaril for agitation/aggression -Patient was informed of the risks, benefits and side effects of the medication and patient verbally consented to taking the medications. -Internal Medicine consult to perform medical evaluation and physical. -NRT - nicotine patch -SW on board for discharge planning. Encourage patient to participate in groups to work on coping skills. 06/28/22 11:52
[2022-06-28] MEDS: OLANZapine 10 MG TAB PO SCH (20:16)
[2022-06-28] MEDS: AMITRIPTYLINE HCL 25 MG TAB PO SCH (20:28)
--- NOTE | 2022-06-29 01:04 | CONS ---
CONSULTATION REASON FOR CONSULTATION: Advice regarding seizure and other multiple medical issues, requested by Psychiatry. HISTORY OF PRESENT ILLNESS: This is a 31-year-old gentleman with a past history of seizure disorder, schizophrenia, was admitted for psychiatric evaluation. There is no history of any chest pain or palpitation. No active seizures. The drug screen is positive for amphetamines. PAST MEDICAL HISTORY: Reviewed and includes schizophrenia, seizure disorder. HOME MEDICATIONS: Reviewed and include: 1. Zyprexa. 2. Neurontin. Doses and rest of medications noted. ALLERGIES: Reviewed and include Abilify. FAMILY HISTORY: Unable to obtain. SOCIAL HISTORY: History of THC. Previous history of smoking. REVIEW OF SYSTEMS: 14-point review is negative as mentioned earlier. PHYSICAL EXAMINATION: VITAL SIGNS: Pulse is 128, blood pressure 136/62, respirations 18. HEENT: Conjunctivae normal. NECK: No JVD. CARDIOVASCULAR: S1, S2. RESPIRATIONS: Breath sounds diminished at the bases. No rhonchi. No crackles. ABDOMEN: Soft and nontender. LEGS: No edema. No cyanosis. NEUROLOGIC: No focal deficits. SKIN: No ulcer, rash, bleeding. JOINTS: No active deforming arthropathy. LABS: Reviewed. ASSESSMENT: 1. Possible generalized anxiety disorder. 2. Seizure disorder. 3. History of schizophrenia. 4. History of anxiety. 5. History of nicotine dependence. RECOMMENDATION: This is a 31-year-old gentleman who presented with multiple medical issues. I would recommend resuming the home medications. Otherwise, I will be happy to review any abnormal labs which is not available in the chart, and the patient has some tachycardia in the chart, but however, on exam, the pulse is between 70 and 80. I recommend to continue follow closely, and we will be happy to follow up the patient in case needed. Please let us know. MMODL / IJN: [id number] /
[2022-06-29] MEDS: GABAPENTIN 400 MG CAP PO SCH ×4 (08:17→20:13)
[2022-06-29] MEDS: hydrOXYzine pamoate 25 MG CAP PO SCH ×4 (08:17→20:13)
[2022-06-29] MEDS: NICOTINE 14MG/24HR PATCH TRANSDERM SCH (08:17)
[2022-06-29] MEDS: BUTALB/APAP/CAFF 50-325-40MG TAB PO PRN ×3 (08:18→20:15)
--- NOTE | 2022-06-29 11:58 | P.PN ---
Progress Note - Text Progress Note Date: 06/29/22 Interval History: Patient was seen resting in bed and was directable and agreeable to speak with machine sign writer in his room. The patient reports that he has been feeling excessive stress in regards to his relationship with his mother. He reports that he has numerous things in his head that he needs to sort out and feels unsafe to return home. He reports mild suicidal ideation however is unable to verbalize any intention or plan. He reports no homicidal ideation, intention, and/or plan. Reports no auditory or visual hallucinations. He denies any paranoia or other delusions. The patient reports no issues regarding his medications and is denying any significant side effects. He denies any medical problems or concerns. Mental Status Exam: General Appearance: Patient appears to be stated age is alert, directable, and cooperative. Behavior: Patient is calmly lying down in bed without any agitated behavior. Eye contact is intermittent. Speech: Patient's speech is fluent and nonpressured. Monotone and low in volume. Mood/Affect: Mood is improving mildly, affect is congruent and constricted. Suicidality/Homicidality: Patient endorses mild suicidal ideation however denies any homicidal ideation. Perceptions: Patient denies any visual hallucinations and denies any auditory hallucinations Though content/process: There is no evidence of any delusional thought content and thought process is linear and goal-directed. Memory and concentration: AOX3, grossly intact for the purposes of this session Judgment and insight: Improving mildly Vital Signs Temp 97.5 F L 06/27/22 23:14 Pulse 128 H 06/27/22 23:14 Resp 18 06/27/22 23:14 BP 137/65 06/27/22 23:14 Pulse Ox 100 06/27/22 18:43 FiO2 Assessment Adjustment disorder, with mixed disturbance of mood and conduct Generalized anxiety disorder Plan: -Patient continues to meet criteria for inpatient psychiatric admission for symptom stabilization and safety. Patient has signed adult voluntary form and medication consent and was placed in patient's chart. -Medications: Elavil 75 mg by mouth daily for depression/anxiety/migraines Vistaril 25 mg by mouth 4 times a day for anxiety -When necessary Zyprexa and Vistaril for agitation/aggression. -NRT - nicotine patch -SW on board for discharge planning. Encouraged the patient to participate in milieu.
[2022-06-29] MEDS: ACETAMINOPHEN TAB 325 MG TAB PO PRN (16:24)
[2022-06-29] MEDS: OLANZapine 5 MG TAB PO PRN (16:25)
[2022-06-29] MEDS: AMITRIPTYLINE HCL 25 MG TAB PO SCH (20:13)
[2022-06-29] MEDS: OLANZapine 10 MG TAB PO SCH (20:14)
[2022-06-30] MEDS: hydrOXYzine pamoate 25 MG CAP PO SCH ×4 (08:11→21:16)
[2022-06-30] MEDS: GABAPENTIN 400 MG CAP PO SCH ×4 (08:11→21:16)
[2022-06-30] MEDS: BUTALB/APAP/CAFF 50-325-40MG TAB PO PRN ×3 (08:12→21:19)
[2022-06-30] MEDS: NICOTINE 14MG/24HR PATCH TRANSDERM SCH (08:13)
--- NOTE | 2022-06-30 13:32 | P.PN ---
Progress Note - Text Progress Note Date: 06/30/22 Interval History: Patient was seen resting in bed and was directable and agreeable to speak with editorial writer in his room. The patient continues to report that he is feeling anxious and that he does not wish to return home. He wishes to stay in the psychiatric unit over the weekend. However, the patient is not reporting any suicidal or homicidal ideation, intention, and/or plan. He is not reporting any auditory or visual hallucinations. He denies any paranoia or other delusions. The patient has been adherent with his medications but is requesting an increase in his Elavil. He denies any medical issues or concerns. Mental Status Exam: General Appearance: Patient appears to be stated age is alert, directable, and cooperative. Behavior: Patient is calmly lying down in bed without any agitated behavior. Eye contact is appropriate. Speech: Patient's speech is fluent and nonpressured. Monotone and low in volume. Mood/Affect: Mood is improving mildly, affect is congruent and constricted. Suicidality/Homicidality: Patient endorses mild suicidal ideation however denies any homicidal ideation. Perceptions: Patient denies any visual hallucinations and denies any auditory hallucinations Though content/process: There is no evidence of any delusional thought content and thought process is linear and goal-directed. Memory and concentration: AOX3, grossly intact for the purposes of this session Judgment and insight: Improving mildly Vital Signs Temp 97.5 F L 06/27/22 23:14 Pulse 128 H 06/27/22 23:14 Resp 18 06/27/22 23:14 BP 137/65 06/27/22 23:14 Pulse Ox 100 06/27/22 18:43 FiO2 Assessment Adjustment disorder, with mixed disturbance of mood and conduct Generalized anxiety disorder Plan: -Patient continues to meet criteria for inpatient psychiatric admission for symptom stabilization and safety. Patient has signed adult voluntary form and medication consent and was placed in patient's chart. -Medications: Increase Elavil to 100 mg by mouth daily for depression/anxiety/migraines Vistaril 25 mg by mouth 4 times a day for anxiety -When necessary Zyprexa and Vistaril for agitation/aggression. -NRT - nicotine patch -SW on board for discharge planning. Encouraged the patient to participate in milieu.
[2022-06-30] MEDS: OLANZapine 5 MG TAB PO PRN (15:45)
[2022-06-30] MEDS: ACETAMINOPHEN TAB 325 MG TAB PO PRN (19:29)
[2022-06-30] MEDS ORDERED: AMITRIPTYLINE HCL 50 MG TAB PO SCH (21:00)
[2022-06-30] MEDS: OLANZapine 10 MG TAB PO SCH (21:16)
[2022-07-01] MEDS: NICOTINE 14MG/24HR PATCH TRANSDERM SCH (08:08)
[2022-07-01] MEDS: hydrOXYzine pamoate 25 MG CAP PO SCH (08:09)
[2022-07-01] MEDS: BUTALB/APAP/CAFF 50-325-40MG TAB PO PRN (08:09)
[2022-07-01] MEDS: GABAPENTIN 400 MG CAP PO SCH (08:09)
[2022-07-01] MEDS: ACETAMINOPHEN TAB 325 MG TAB PO PRN (10:28)
--- NOTE | 2022-07-01 12:56 | P.DS ---
Providers Date of admission: 06/27/22 21:35 Expected date of discharge: 07/01/22 Attending physician: Lincoln Cote MD Consults: 06/27/22 21:43 Consult Physician Routine Consulting Provider: Adela Mendosa Consult Reason/Comments: medical management Do you want consulting provider notified?: Yes Primary care physician: Hiram Castillo - Discharge Diagnosis(es) (1) Adjustment disorder Status: Acute Priority: High (2) Generalized anxiety disorder Status: Chronic Priority: Medium Hospital Course: Admission HPI: Patient is a single, unemployed, 31-year-old male with significant history of acute psychosis, methamphetamine abuse, and schizophrenia presented to our hospital on 06/27/2022, brought in the hospital voluntarily for suicidal ideation Patient presented to the hospital, brought in by his guardian mother, complaining of him being noncompliant with his medications. As previous report, the patient reported that he was very anxious and unable to take care of himself. He reported that he wants to be restarted on his medications. He was also noted to be cooperative by staff. [facility] reported to this provider during the team meeting that he was assessed by the ACT team earlier yesterday and did not report any significant psychiatric issues or concerns and denied any suicidal or homicidal ideation, intention, and/or plan. Upon assessment on the psychiatric unit, the patient states that he is not suicidal or homicidal however when informed that he would be unable to stay here for the 3 days that he is requesting, the patient states that he is suicidal. He expresses that he is feeling extremely stressed with the situation at home and that he has been lacking of permanent housing. He reports this is his primary stressor as well as his ability to get along with his mother. He reports no issues with sleep or appetite. He denies any auditory or visual hallucinations. He reports no paranoia or other delusions. Urinary drug screen was positive for amphetamines. Patient however is denying any use. Patient reports that he was presented diagnosed with anxiety. The patient has had previous home medication regimens of Zyprexa, Vistaril, and gabapentin but was most recently on a regimen of Elavil and gabapentin and Vistaril. Patient was last hospitalized on our psychiatric unit in April 2022. He is open with [facility] and the ACT team. Patient denies any history of suicide attempts in the past. Hospital course: Upon admission to the unit patient was initially as irritable and denying any suicidal ideation however when informed that we would look at discharge, the patient later reported he was suicidal in order to stay longer. Patient was however directable and agreeable to commence treatment. Patient got along well with other patients on the unit and followed unit protocol. Patient was compliant with the medications and denied any side effects throughout hospital course. Patient was started on his home medication of Elavil and Vistaril. His Elavil was titrated to 100 mg by mouth at bedtime for anxiety and migraines. Patient spoke of his stressors and engaged in therapy both group and individual. Patient was also seen by medical team for history and physical exam. Over the course of the hospitalization, the patient was minimally attended group activities. The patient however was not presenting with any imminent risk of harm to self or others reported no suicidal or homicidal ideation. He remained vague as to why he wants to stay in the hospital other than "feeling stressed." As patient longer met criteria for inpatient psychiatric admission, the patient was currently discharged and was recommended to follow-up with his outpatient appointments and care with the ACT team and [facility]. He reports no medical issues or concerns. Denies any chest pain, palpitations, or SOB. Mental status exam: General Appearance: Patient appears to be stated age is alert, pleasant, and cooperative. Patient is in no acute distress and has fair hygiene and grooming Behavior: Patient is calmly seated without any agitated behavior. Speech: Patient's speech is fluent and nonpressured. Mood/Affect: Patient reports their mood is "doing all right", affect is congruent and euthymic. Constricted. Suicidality/Homicidality: Patient denies having any suicidal or homicidal ideation intent or plan. Perceptions: Patient denies any auditory or visual hallucinations. Though content/process: There is no evidence of any delusional thought content and thought process is linear and goal-directed. Memory and concentration: AOX3, grossly intact for the purposes of this session. Can spell "WORLD" backwards correctly. Judgment and insight: Improved with guarded prognosis Impression: Generalized anxiety disorder Adjustment disorder Plan: -Continue with discharge today as patient has improved and stabilized psychiatrically and is not currently an imminent threat to himself and/or others. Patient will remain at chronically elevated risk due to his history substance abuse. -Continue medications: Elavil 100 mg by mouth at bedtime for depression and migraines Neurontin 800 mg by mouth 4 times a day probably use for anxiety and for neuropathic pain Vistaril 25 minutes by mouth 4 times a day for anxiety Zyprexa 10 mg by mouth at bedtime for psychosis -Patient was counseled on the need for medication compliance and appropriate follow-up at mental health and also primary care for medical issues. Patient verbalized understanding and agreed. -Social work to arrange for and conduct family meeting to ensure safety upon discharge and answer any questions/concerns. Social work also to arrange for patients follow up appointments with [facility] for psychiatric care along with follow up with primary care provider. -Patient counseled on abstaining from recreational drugs and marijuana and alcohol. Was informed/educated on the adverse effects on their physical and mental health. Patient verbally agreed and understood. -Patient was instructed to return to the hospital or seek immediate medical care if their psychiatric or medical symptoms do worsen or reoccur. -Psychoeducation and supportive therapy provided to patient. Risks and benefits of pharmacological treatment versus the risks and benefits of nontreatment weight and discussed. Informed consent discussion held. Common side effects of psychotropics discussed such as, but not limited to headache, GI disturbance, sexual dysfunction, movement disorders, sedation, and orthostatic hypotension. Life threatening and blackbox warnings of prescribed medications also discussed. Potential risks of operating a vehicle or heavy machinery discussed with patient at length. Advised on importance of compliance and a reliable and responsible manner. Patient advised to review FDA consumer labeling of all medications prior to taking. Patient verbalized understanding of potential risks, and agrees with current treatment plan. Patient advised to medically contact physician/emergency personnel if any acute changes in condition occur. Vital Signs Temp 97.5 F L 06/27/22 23:14 Pulse 128 H 06/27/22 23:14 Resp 18 06/27/22 23:14 BP 137/65 06/27/22 23:14 Pulse Ox 100 06/27/22 18:43 FiO2 Laboratory Results Urine Opiates Screen Not Detected (NotDetected) 06/27/22 20:04 Ur Oxycodone Screen Not Detected (NotDetected) 06/27/22 20:04 Urine Methadone Screen Not Detected (NotDetected) 06/27/22 20:04 Ur Propoxyphene Screen Not Detected (NotDetected) 06/27/22 20:04 Ur Barbiturates Screen Not Detected (NotDetected) 06/27/22 20:04 U Tricyclic Antidepress Detected (NotDetected) H 06/27/22 20:04 Ur Phencyclidine Scrn Not Detected (NotDetected) 06/27/22 20:04 Ur Amphetamines Screen Detected (NotDetected) H 06/27/22 20:04 U Methamphetamines Scrn Not Detected (NotDetected) 06/27/22 20:04 U Benzodiazepines Scrn Not Detected (NotDetected) 06/27/22 20:04 Urine Cocaine Screen Not Detected (NotDetected) 06/27/22 20:04 U Marijuana (THC) Screen Not Detected (NotDetected) 06/27/22 20:04 Coronavirus (PCR) Not Detected (Not Detectd) 06/27/22 20:04 Allergies Allergy/AdvReac Type Severity Reaction Status Date / Time aripiprazole [From Abilify] Allergy Unknown Verified 05/25/22 18:25 fluphenazine HCl Allergy Unknown Verified 05/25/22 18:25 [From Prolixin] paliperidone [From Invega] Allergy Unknown Verified 05/25/22 18:25 propoxyphene Allergy Unknown Verified 05/25/22 18:25 [From Darvocet-N] risperidone [From Risperdal] Allergy Unknown Verified 05/25/22 18:25 ziprasidone [From Geodon] Allergy Unknown Verified 05/25/22 18:25 fluphenazine enanthate AdvReac Severe Trismus Verified 05/25/22 18:25 [From Prolixin] haloperidol [From Haldol] AdvReac Unknown Verified 05/25/22 18:25 Patient Condition at Discharge: Stable Plan - Discharge Summary Discharge Rx Participant: No New Discharge Prescriptions: New Amitriptyline HCl [Elavil] 100 mg PO HS 30 Days tab Gabapentin [Neurontin] 800 mg PO QID 30 Days cap hydrOXYzine pamoate [Vistaril] 25 mg PO QID 30 Days cap OLANZapine [ZyPREXA] 10 mg PO HS 30 Days tab Changed Butalb/APAP/Caff 50-325-40Mg [Fioricet 50-325-40] 1 tab PO Q6HR PRN 5 Days tab PRN Reason: Headache Discontinued Gabapentin [Neurontin] 800 mg PO QID 30 Days cap hydrOXYzine pamoate [Vistaril] 25 mg PO QID 30 Days cap OLANZapine [ZyPREXA] 10 mg PO HS 30 Days tab Amitriptyline HCl [Elavil] 75 mg PO HS Discharge Medication List Amitriptyline HCl [Elavil] 100 mg PO HS 30 Days tab 07/01/22 [Rx] Butalb/APAP/Caff 50-325-40Mg [Fioricet 50-325-40] 1 tab PO Q6HR PRN 5 Days tab 07/01/22 [Rx] Gabapentin [Neurontin] 800 mg PO QID 30 Days cap 07/01/22 [Rx] OLANZapine [ZyPREXA] 10 mg PO HS 30 Days tab 07/01/22 [Rx] hydrOXYzine pamoate [Vistaril] 25 mg PO QID 30 Days cap 07/01/22 [Rx] Follow up Appointment(s)/Referral(s): [facility] [Outside] - 07/06/22 12:30 pm (07-06-22 at 12:30 with SEDIMENTATIONIST Candace Medeiros Today with ACT team ) Anna Gandhi MD [Primary Care Provider] - 1-2 days Patient Instructions/Handouts: Schizophrenia (DC) Activity/Diet/Wound Care/Special Instructions: Avoid the use of street drugs and alcohol. Take all prescriptions as prescribed. When you are in need of refills on your medications, please contact your medical provider and/or outpatient psychiatrist to have this done. Please go to scheduled outpatient appointment for aftercare treatment. If symptoms return or become worse, call the crisis line at and/or go to the nearest emergency room for evaluation. Discharge Disposition: HOME SELF-CARE
== END 2022-07-01 12:15 | disposition home or self-care (01) | DRG 882 ==
LOC: EC 18:35 → 3MHU 21:35
PROVIDERS: ADMIT Psychiatry & Neurology Psychiatry; ATTEND Psychiatry & Neurology Psychiatry
DX: F43.20 Adjustment disorder, unspecified (principal); R45.851 Suicidal ideations; Z20.822 Contact with and (suspected) exposure to COVID-19; G43.909 Migraine, unspecified, not intractable, without status migrainosus; F20.9 Schizophrenia, unspecified; F32.A Depression, unspecified; F41.0 Panic disorder [episodic paroxysmal anxiety]; F41.1 Generalized anxiety disorder; G40.909 Epilepsy, unspecified, not intractable, without status epilepticus; Z59.00 Homelessness unspecified; Z79.899 Other long term (current) drug therapy; Z87.891 Personal history of nicotine dependence; Z88.5 Allergy status to narcotic agent; Z88.8 Allergy status to other drugs, medicaments and biological substances; Z87.81 Personal history of (healed) traumatic fracture
CPT/HCPCS: 80306; 87635; 99285

== ENCOUNTER 2022-07-20 18:55 | Inpatient (IN) | payer MEDICARE, MEDICAID ==
--- NOTE | 2022-07-20 21:05 | ED ---
General Adult HPI - General Chief complaint: Psychiatric Symptoms Stated complaint: EPS eval Time Seen by Provider: 07/20/22 20:27 Source: patient, RN notes reviewed, old records reviewed Mode of arrival: ambulatory Limitations: no limitations - History of Present Illness Initial comments: 31-year-old male presenting for mental health evaluation. Patient states he's having both suicidal and homicidal ideation. The patient is requesting admission to mental health unit. He denies suicide attempt. He is accompanied by his mother who has petitioned for mental health evaluation. She states that he's been more agitated than usual. No physical complaints. - Related Data Previous Rx's Medication Instructions Recorded Amitriptyline HCl [Elavil] 100 mg PO HS 30 Days tab 07/01/22 Butalb/APAP/Caff 50-325-40Mg 1 tab PO Q6HR PRN 5 Days tab 07/01/22 [Fioricet 50-325-40] Gabapentin [Neurontin] 800 mg PO QID 30 Days cap 07/01/22 OLANZapine [ZyPREXA] 10 mg PO HS 30 Days tab 07/01/22 hydrOXYzine pamoate [Vistaril] 25 mg PO QID 30 Days cap 07/01/22 Allergies Allergy/AdvReac Type Severity Reaction Status Date / Time aripiprazole [From Abilify] Allergy Unknown Verified 07/21/22 03:01 fluphenazine HCl Allergy Unknown Verified 07/21/22 03:01 [From Prolixin] paliperidone [From Invega] Allergy Unknown Verified 07/21/22 03:01 propoxyphene Allergy Unknown Verified 07/21/22 03:01 [From Darvocet-N] risperidone [From Risperdal] Allergy Unknown Verified 07/21/22 03:01 ziprasidone [From Geodon] Allergy Unknown Verified 07/21/22 03:01 fluphenazine enanthate AdvReac Severe Trismus Verified 07/21/22 03:01 [From Prolixin] haloperidol [From Haldol] AdvReac Unknown Verified 07/21/22 03:01 Review of Systems ROS Statement: Those systems with pertinent positive or pertinent negative responses have been documented in the HPI. ROS Other: All systems not noted in ROS Statement are negative. Past Medical History Past Medical History: Seizure Disorder Additional Past Medical History / Comment(s): Schizophrenia, right arm fracture, degenerative disc to lower back, and right wrist plate and screws History of Any Multi-Drug Resistant Organisms: None Reported Past Surgical History: Orthopedic Surgery Additional Past Surgical History / Comment(s): mouth surgery, reduction of right arm fracture. Past Anesthesia/Blood Transfusion Reactions: No Reported Reaction Past Psychological History: Anxiety, Panic Disorder, Schizophrenia Smoking Status: Former smoker Past Alcohol Use History: Rare Past Drug Use History: Marijuana - Past Family History Mother Brother(s) Family Medical History: Unable to Obtain General Exam Limitations: no limitations General appearance: alert, in no apparent distress Head exam: Present: atraumatic, normocephalic Eye exam: Present: normal appearance, PERRL ENT exam: Present: normal exam Respiratory exam: Present: normal lung sounds bilaterally. Absent: respiratory distress, wheezes Cardiovascular Exam: Present: regular rate, normal rhythm GI/Abdominal exam: Present: soft. Absent: distended Neurological exam: Present: alert. Absent: motor sensory deficit Psychiatric exam: Present: flat affect, homicidal ideation, suicidal ideation Skin exam: Present: warm, dry, intact. Absent: cyanosis, diaphoretic Course Vital Signs 07/20/22 07/21/22 19:01 03:45 Temperature 97.4 F L 97.7 F Pulse Rate 68 Pulse Rate [ 75 Left Sitting] Respiratory 16 15 Rate Blood Pressure 164/104 Blood Pressure 118/66 [Left Arm Sitting] O2 Sat by Pulse 100 97 Oximetry Medical Decision Making - Lab Data Lab Results 07/20/22 07/21/22 Range/Units 15:50 02:21 Urine Opiates Screen Not Detected (NotDetected) Ur Oxycodone Screen Not Detected (NotDetected) Urine Methadone Screen Not Detected (NotDetected) Ur Propoxyphene Screen Not Detected (NotDetected) Ur Barbiturates Screen Detected H (NotDetected) U Tricyclic Antidepress Detected H (NotDetected) Ur Phencyclidine Scrn Not Detected (NotDetected) Ur Amphetamines Screen Not Detected (NotDetected) U Methamphetamines Scrn Not Detected (NotDetected) U Benzodiazepines Scrn Not Detected (NotDetected) Urine Cocaine Screen Not Detected (NotDetected) U Marijuana (THC) Screen Not Detected (NotDetected) Coronavirus (PCR) Not Detected (Not Detectd) Disposition Clinical Impression: Schizophrenia, acute, Psychosis Disposition: ADMITTED IP TO THIS HOSP Condition: Fair Is patient prescribed a controlled substance at d/c from ED?: No
[2022-07-21] MEDS ORDERED: ACETAMINOPHEN TAB 325 MG TAB PO PRN (02:56)
[2022-07-21] MEDS ORDERED: MAGNESIUM HYDROXIDE 2,400 MG/10 ML CUP PO PRN (02:56)
[2022-07-21] MEDS ORDERED: MAG HYDROX/AL HYDROX/SIMETH 30 ML CUP PO PRN (02:56)
[2022-07-21] MEDS ORDERED: BUTALB/APAP/CAFF 50-325-40MG TAB PO PRN ×2 (02:57→10:56)
[2022-07-21] MEDS: hydrOXYzine pamoate 25 MG CAP PO PRN ×3 (08:24→17:27)
[2022-07-21] MEDS: OLANZapine 10 MG TAB PO PRN ×3 (08:24→17:28)
[2022-07-21] MEDS ORDERED: NICOTINE 14MG/24HR PATCH TRANSDERM SCH (09:00)
[2022-07-21] MEDS ORDERED: OLANZapine 10 MG VIAL IM PRN (10:06)
[2022-07-21] MEDS ORDERED: GABAPENTIN 300 MG CAP PO STA (10:57)
[2022-07-21] MEDS: BUTALB/APAP/CAFF 50-325-40MG TAB PO PRN ×2 (11:23→17:28)
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
[2022-07-21] MEDS: GABAPENTIN 400 MG CAP PO SCH ×2 (15:38→21:10)
--- NOTE | 2022-07-21 15:50 | P.MDCNMH ---
History of Present Illness H&P Date: 07/21/22 This is a 31-year-old male who recently presented to the emergency department with suicidal and homicidal ideation for mental health evaluation. Patient was brought in by his mother who petitioned him for mental health evaluation. No labs except for Covid testing was done in the ER and was negative. Recommend basic labs for further evaluation. UDS and urine ordered although pending at this time. Patient follows with Dr. Gandhi in the outpatient setting along with his neurologist Dr. Faustin. Patient with a past medical history of seizure disorder and schizophrenia along with anxiety and panic disorder. Patient also has a history of polysubstance abuse and marijuana although reports he is not currently using any illicit drugs. Agent is a former smoker and denies any recent alcohol use. On exam patient appears slightly disheveled and guarded and not very talkative although is receptive to questions and answering appropriately. Patient is agreeable to speak with play writer. Patient appears anxious. On admission vital signs show an elevated blood pressure although repeat blood pressure this morning is within normal limits. Patient denies any chest pain or shortness of breath. Patient is 97% on room air. Patient reports he recently just arrived so has not attended any meetings but is agreeable to do so. Patient's home medications have been resumed. Review Of Systems: Constitutional: No fever, no chills, no night sweats. No weight change. No weakness, fatigue or lethargy. No daytime sleepiness. EENT: No headache. No blurred vision or double vision, no loss of vision. No loss of Hearing, no ringing in the ears, no dizziness. No nasal drainage or congestion. No epistaxis. No sore throat. Lungs: No shortness of breath, cough, no sputum production. No wheezing. Cardiovascular: No chest pain, no lower extremity edema. No palpitations. No paroxysmal nocturnal dyspnea. No orthopnea. No lightheadedness or dizziness. No syncopal episodes. Abdominal: No abdominal pain. No nausea, vomiting. No diarrhea. No constipation. No bloody or tarry stools.. No loss of appetite. Genitourinary: No dysuria, increased frequency, urgency. No urinary retention. Musculoskeletal: No myalgias. No muscle weakness, no gait dysfunction, no frequent falls. No back pain. No neck pain. Integumentary: No wounds, no lesions. No rash or pruritus. No unusual bruising. No change in hair or nails. Neurologic: No aphasia. No facial droop. No change in mentation. No head injury. No headache. No paralysis. No paresthesia. Psychiatric: Reports depression. Reports anxiety. Endocrine: No abnormal blood sugars. No weight change. No excessive sweating or thirst. No cold intolerance. PHYSICAL EXAMINATION: GENERAL: The patient is alert and oriented x3, thin built young appearing male who is disheveled and anxious HEENT: Pupils are round and equally reacting to light. EOMI. no scleral icterus. No conjunctival pallor. Normocephalic, atraumatic. No pharyngeal erythema. No thyromegaly. CARDIOVASCULAR: S1 and S2 muffled PULMONARY: diminished breath sounds bilaterally with no wheezing or rhonchi noted. ABDOMEN: soft. Nontender on exam. non-distended, normoactive bowel sounds. No palpable organomegaly. MUSCULOSKELETAL: No joint swelling or deformity. EXTREMITIES: No cyanosis, clubbing, or pedal edema. NEUROLOGICAL: Gross neurological examination did not reveal any focal deficits. SKIN: No rashes. Assessment: Suicidal and homicidal ideation, on petition by family History of seizure disorder follows with Dr. Faustin outpatient Schizophrenia Anxiety/panic disorder History of methamphetamine use Full code Plan: Recommend to continue with current medications and management per psychiatric services. Of note only Covid testing was done in the ER and recommend basic labs which have been ordered by psychiatry. Home medications have been resumed. During exam patient denies any drug use although has extensive history of methamphetamine use along with marijuana and urine drug screen is currently pending along with routine urinalysis. Patient requested voluntary admission to the psychiatric unit for further evaluation. Patient reports he follows with Dr. Gandhi in the outpatient setting. Encourage the patient to be involved in group therapy meetings and compliant with medications. We'll follow up on labs ordered in the a.m. The impression and plan of care has been dictated by Suyapa Camilo, nurse practitioner as directed. Dr. Osei NELSON I have performed a history and examination and MDM of this patient, discussed the same with the dictator, and agree with the dictator's assessment and plan as written ,documented as a scribe. Based on total visit time, I have performed more than 50% of the visit. Any additional findings or plans will be noted. Past Medical History Past Medical History: Seizure Disorder Additional Past Medical History / Comment(s): Schizophrenia, right arm fracture, degenerative disc to lower back, and right wrist plate and screws History of Any Multi-Drug Resistant Organisms: None Reported Past Surgical History: Orthopedic Surgery Additional Past Surgical History / Comment(s): mouth surgery, reduction of right arm fracture. Past Anesthesia/Blood Transfusion Reactions: No Reported Reaction Smoking Status: Former smoker - Past Family History Mother Brother(s) Family Medical History: Unable to Obtain Medications and Allergies Home Medications Medication Instructions Recorded Confirmed Type Amitriptyline HCl [Elavil] 100 mg PO HS 30 Days tab 07/01/22 07/21/22 Rx Butalb/APAP/Caff 50-325-40Mg 1 tab PO Q6HR PRN 5 Days tab 07/01/22 07/21/22 Rx [Fioricet 50-325-40] Gabapentin [Neurontin] 800 mg PO QID 30 Days cap 07/01/22 07/21/22 Rx OLANZapine [ZyPREXA] 10 mg PO HS 30 Days tab 07/01/22 07/21/22 Rx hydrOXYzine pamoate [Vistaril] 25 mg PO QID 30 Days cap 07/01/22 07/21/22 Rx Allergies Allergy/AdvReac Type Severity Reaction Status Date / Time aripiprazole [From Abilify] Allergy Unknown Verified 07/21/22 03:01 fluphenazine HCl Allergy Unknown Verified 07/21/22 03:01 [From Prolixin] paliperidone [From Invega] Allergy Unknown Verified 07/21/22 03:01 propoxyphene Allergy Unknown Verified 07/21/22 03:01 [From Darvocet-N] risperidone [From Risperdal] Allergy Unknown Verified 07/21/22 03:01 ziprasidone [From Geodon] Allergy Unknown Verified 07/21/22 03:01 fluphenazine enanthate AdvReac Severe Trismus Verified 07/21/22 03:01 [From Prolixin] haloperidol [From Haldol] AdvReac Unknown Verified 07/21/22 03:01 Physical Exam Vitals: Vital Signs Temp Pulse Pulse Resp BP BP Pulse Ox 07/21/22 03:45 97.7 F 75 15 118/66 97 07/20/22 19:01 97.4 F L 68 16 164/104 100 Intake and Output 07/20/22 07/21/22 07/21/22 22:59 06:59 14:59 Other: Weight 79.379 kg 68.124 kg Cranial Nerve Examination - Cranial Nerves Cranial Nerve I- Olfactory: Intact Cranial Nerve II- Optic: Intact Cranial Nerve III- Oculomotor: Intact Cranial Nerve IV- Trochlear: Intact Cranial Nerve V- Trigeminal: Intact Cranial Nerve - Abducens: Intact Cranial Nerve VII- Facial: Intact Cranial Nerve VIII- Auditory: Intact Cranial Nerve IX- Glossopharyngeal: Intact Cranial Nerve X- Vagus: Intact Cranial Nerve XI- Accessory: Intact Cranial Nerve XII- Hypoglossal: Intact Assessment and Plan Time with Patient: Less than 30
[2022-07-21] MEDS ORDERED: GABAPENTIN 400 MG CAP PO SCH (16:00)
[2022-07-21 16:10] LABS: Appearance,Urine Clear (Clear); Bilirubin,Urine Negative (Negative); Blood,Urine Negative (Negative); Color,Urine Light Yellow; Glucose,Urine (UA) Negative (Negative); Ketones,Urine Negative (Negative); Leukocyte Esterase,Urine Negative (Negative); Nitrite,Urine Negative (Negative); PH, Urine 7.5 (5.0-8.0); Protein,Urine Negative (Negative); Specific Gravity,Urine 1.011 (1.001-1.035); Urobilinogen,Urine <2.0 mg/dL (<2.0)
[2022-07-21 16:58] LABS: Amphetamine Screen,Urine Not Detected (NotDetected); Barbiturate Screen,Urine Detected (NotDetected); Benzodiazepines Screen,Urine Not Detected (NotDetected); Cocaine Screen,Urine Not Detected (NotDetected); Methadone Screen, Urine Not Detected (NotDetected); Opiate Screen,Urine Not Detected (NotDetected); Oxycodone Screen, Urine Not Detected (NotDetected); Phencyclidine Screen,Urine Not Detected (NotDetected); Tricyclic Antidepressant,Urine Detected (NotDetected); Urn Cannabinoid Scrn Not Detected (NotDetected)
[2022-07-21] MEDS: OLANZapine 5 MG TAB PO SCH (20:07)
[2022-07-21] MEDS ORDERED: AMITRIPTYLINE HCL 50 MG TAB PO SCH (21:00)
[2022-07-22] MEDS: BUTALB/APAP/CAFF 50-325-40MG TAB PO PRN ×4 (02:48→20:11)
[2022-07-22] MEDS: hydrOXYzine pamoate 25 MG CAP PO PRN ×4 (03:26→20:14)
[2022-07-22] MEDS: GABAPENTIN 400 MG CAP PO SCH ×4 (07:59→20:12)
[2022-07-22] MEDS: OLANZapine 5 MG TAB PO SCH (07:59)
[2022-07-22] MEDS: ACETAMINOPHEN TAB 325 MG TAB PO PRN (09:19)
--- NOTE | 2022-07-22 10:58 | P.PN ---
Progress Note - Text Progress Note Date: 07/22/22 Interval History: Patient was seen wandering the hallways and was directable and agreeable to speak with creative writer in the office. Currently, the patient expresses that he came to the hospital for anxiety and needing help. He states that he just wants to be back on his medications. When bringing up his methamphetamine use, the patient vehemently denies and methamphetamines have anything to do with his mood. He was not amenable to any criticism regarding his maintenance of his psychiatric care. He is currently denying any suicidal or homicidal ideation, intention, and/or plan. He is not reporting any auditory or visual hallucinations. He denies any paranoia or other delusions. He expresses that he does not feel safe to go home today. Mental Status Exam: General Appearance: Patient appears to be stated age is alert, directable, and cooperative. Behavior: Patient is calmly seated without any agitated behavior. Speech: Patient's speech is fluent and nonpressured. Mood/Affect: Mood is improving mildly, affect is congruent and constricted. Suicidality/Homicidality: Patient denies having any suicidal or homicidal ideation intent or plan. Perceptions: Patient denies any visual hallucinations and denies any auditory hallucinations Though content/process: There is no evidence of any delusional thought content and thought process is linear and goal-directed. Memory and concentration: AOX3, grossly intact for the purposes of this session Judgment and insight: Improving mildly Vital Signs Temp 98.5 F 07/22/22 03:32 Pulse 95 07/22/22 03:32 Resp 18 07/22/22 03:32 BP 125/77 07/22/22 03:32 Pulse Ox 98 07/22/22 03:32 FiO2 Laboratory Results - Last 24 Hours 07/20/22 07/21/22 15:50 15:55 Urine Color Light Yellow Urine Appearance Clear Urine pH 7.5 Ur Specific [place] 1.011 Urine Protein Negative Urine Glucose (UA) Negative Urine Ketones Negative Urine Blood Negative Urine Nitrite Negative Urine Bilirubin Negative Urine Urobilinogen <2.0 Ur Leukocyte Esterase Negative Urine Opiates Screen Not Detected Ur Oxycodone Screen Not Detected Urine Methadone Screen Not Detected Ur Propoxyphene Screen Not Detected Ur Barbiturates Screen Detected H U Tricyclic Antidepress Detected H Ur Phencyclidine Scrn Not Detected Ur Amphetamines Screen Not Detected U Methamphetamines Scrn Not Detected U Benzodiazepines Scrn Not Detected Urine Cocaine Screen Not Detected U Marijuana (THC) Screen Not Detected Assessment Schizoaffective disorder, bipolar type Mental methamphetamine use disorder Cannabis use disorder Generalized anxiety disorder Plan: -Patient continues to meet criteria for inpatient psychiatric admission for symptom stabilization and safety. Patient has signed adult voluntary form and medication consent and was placed in patient's chart. -Medications: Increase gabapentin to 800 mg by mouth 4 times a day for off label use for anxiety Elavil 100 mg daily at bedtime for depression/anxiety/migraines Zyprexa 10 mg by mouth at bedtime for mood stabilization -When necessary Vistaril and Zyprexa for agitation/aggression. -NRT - nicotine patch -SW on board for discharge planning. Encouraged the patient to participate in milieu.
[2022-07-22] MEDS: OLANZapine 10 MG TAB PO SCH (20:12)
[2022-07-22] MEDS: AMITRIPTYLINE HCL 50 MG TAB PO SCH (20:12)
[2022-07-23] MEDS: hydrOXYzine pamoate 25 MG CAP PO PRN ×4 (02:42→21:04)
[2022-07-23] MEDS: BUTALB/APAP/CAFF 50-325-40MG TAB PO PRN ×4 (02:43→20:19)
[2022-07-23] MEDS: ACETAMINOPHEN TAB 325 MG TAB PO PRN ×3 (04:57→17:49)
[2022-07-23] MEDS: OLANZapine 10 MG TAB PO PRN ×2 (04:58→16:11)
[2022-07-23] MEDS: GABAPENTIN 400 MG CAP PO SCH ×4 (08:57→21:04)
--- NOTE | 2022-07-23 17:27 | P.PN ---
Subjective Progress Note Date: 07/23/22 Principal diagnosis: Assessment Schizoaffective disorder, bipolar type Mental methamphetamine use disorder Cannabis use disorder Generalized anxiety disorder Patient was seen wandering the hallways and was directable did not agree to speak with tag writer in the office. Currently, the patient expresses that he came to the hospital for anxiety and needing help. He states that he just wants to be back on his medications. He is currently denying any suicidal or homicidal ideation, intention, and/or plan. He is not reporting any auditory or visual hallucinations. He denies any paranoia or other delusions.. Mental Status Exam: Patient was pacing the halls with a somewhat angry confused" General Appearance: Patient appears to be stated age is alert, directable, and cooperative. Behavior: He did not want to talk Speech: Patient's speech is fluent and nonpressured but not very productive. Mood/Affect: Mood is improving mildly, affect is congruent and constricted. Suicidality/Homicidality: Patient denies having any suicidal or homicidal ideation intent or plan. Perceptions: Patient denies any visual hallucinations and denies any auditory hallucinations Though content/process: There is no evidence of any delusional thought content and thought process is linear and goal-directed. Memory and concentration: Alert and oriented to person place time and circumstance, grossly intact for the purposes of this session Judgment and insight: Improving mildly still withdrawn not talking much the Assessment Schizoaffective disorder, bipolar type Mental methamphetamine use disorder Cannabis use disorder Generalized anxiety disorder Plan: No change in medication patient says, "I am fine" -Patient continues to meet criteria for inpatient psychiatric admission for symptom stabilization and safety. Patient has signed adult voluntary form and medication consent and was placed in patient's chart. -Medications: Increase gabapentin to 800 mg by mouth 4 times a day for off label use for anxiety Elavil 100 mg daily at bedtime for depression/anxiety/migraines Zyprexa 10 mg by mouth at bedtime for mood stabilization -When necessary Vistaril and Zyprexa for agitation/aggression. -NRT - nicotine patch -SW on board for discharge planning. Encouraged the patient to participate in milieu. Objective - Vital Signs Vital signs: Vital Signs Temp 97.9 F 07/23/22 02:38 Pulse 126 H 07/23/22 02:38 Resp 16 07/23/22 02:38 BP 114/81 07/23/22 02:38 Pulse Ox 96 07/23/22 02:38 FiO2
[2022-07-23] MEDS: AMITRIPTYLINE HCL 50 MG TAB PO SCH (20:19)
[2022-07-23] MEDS: OLANZapine 10 MG TAB PO SCH (20:20)
[2022-07-24] MEDS: BUTALB/APAP/CAFF 50-325-40MG TAB PO PRN ×4 (02:10→19:50)
[2022-07-24] MEDS: hydrOXYzine pamoate 25 MG CAP PO PRN ×3 (08:49→19:50)
[2022-07-24] MEDS: GABAPENTIN 400 MG CAP PO SCH ×4 (08:50→19:49)
[2022-07-24] MEDS: ACETAMINOPHEN TAB 325 MG TAB PO PRN ×2 (11:09→20:53)
[2022-07-24] MEDS: OLANZapine 10 MG TAB PO PRN (11:26)
--- NOTE | 2022-07-24 12:22 | P.PN ---
Subjective Progress Note Date: 07/24/22 Principal diagnosis: Assessment Schizoaffective disorder, bipolar type Mental methamphetamine use disorder Cannabis use disorder Generalized anxiety disorder Patient was seen wandering the hallways and did agree to speak with me in the office. Subjective: He is currently denying any suicidal or homicidal ideation, intention, and/or plan. He is not reporting any auditory or visual hallucinations. He denies any paranoia or other delusions.. He is anxious about post discharge and does not feel that he is ready to function outside of the hospital unit. Objective: Mental Status Exam: Patient was pacing the halls he seems less angry today" General Appearance: Patient appears to be stated age is alert, directable, and cooperative. Behavior: He was willing to talk although he was not very productive Speech: Patient's speech is fluent and nonpressured but not very productive. Mood/Affect: Mood is improving better, affect is congruent and constricted. Suicidality/Homicidality: Patient denies having any suicidal or homicidal ideation intent or plan. Perceptions: Patient denies any visual hallucinations and denies any auditory hallucinations Though content/process: There is no evidence of any delusional thought content and thought process is linear and goal-directed. Memory and concentration: Alert and oriented to person place time and circumstance, grossly intact for the purposes of this session Judgment and insight: Improving mildly still withdrawn not talking much the Assessment Schizoaffective disorder, bipolar type Mental methamphetamine use disorder Cannabis use disorder Generalized anxiety disorder Plan: No change in medication patient says, "I am fine" he says that he can only take antipsychotics for so long and and they quit working that he is going to try CBD and meditation instead however he is taking the medicine in the hospital and is not complaining of side effects he does say that the other medicines are helpful including gabapentin Elavil and when necessary -Patient continues to meet criteria for inpatient psychiatric admission for symptom stabilization and safety. Patient has signed adult voluntary form and medication consent and was placed in patient's chart. -Medications: Increase gabapentin to 800 mg by mouth 4 times a day for off label use for anxiety Elavil 100 mg daily at bedtime for depression/anxiety/migraines Zyprexa 10 mg by mouth at bedtime for mood stabilization -When necessary Vistaril and Zyprexa for agitation/aggression. -NRT - nicotine patch -SW on board for discharge planning. Encouraged the patient to participate in milieu. Objective - Vital Signs Vital signs: Vital Signs Temp 97.2 F L 07/24/22 02:33 Pulse 104 H 07/24/22 02:33 Resp 16 07/24/22 02:33 BP 97/64 07/24/22 02:33 Pulse Ox 96 07/23/22 02:38 FiO2
[2022-07-24] MEDS: AMITRIPTYLINE HCL 50 MG TAB PO SCH (19:50)
[2022-07-24] MEDS: OLANZapine 10 MG TAB PO SCH (19:50)
[2022-07-25] MEDS: hydrOXYzine pamoate 25 MG CAP PO PRN ×4 (02:52→20:44)
[2022-07-25] MEDS: BUTALB/APAP/CAFF 50-325-40MG TAB PO PRN ×4 (02:53→18:44)
[2022-07-25 02:55] VITALS: BP 131/63; PULSE 111; RESP 14; TEMP 97.3
[2022-07-25] MEDS: ACETAMINOPHEN TAB 325 MG TAB PO PRN ×4 (03:56→23:20)
[2022-07-25] MEDS: GABAPENTIN 400 MG CAP PO SCH ×4 (09:01→20:45)
--- NOTE | 2022-07-25 12:18 | P.PN ---
Progress Note - Text Progress Note Date: 07/25/22 Interval History: Patient was seen wandering the hallways and was directable and agreeable to speak with selling underwriter in the office. Currently, the patient is not reporting any suicidal or homicidal ideation, intention, and/or plan. He is not reporting any auditory or visual hallucinations. He denies any paranoia or other delusions. He expresses that he has been experiencing elevated anxiety. He reports concerns about discharge due to his anxiety. He is otherwise adherent with his medications and is not reporting any side effects. He reports significant improvement with zyprexa and gabapentin. Mental Status Exam: General Appearance: Patient appears to be stated age is alert, directable, and cooperative. Behavior: Patient is calmly seated without any agitated behavior. Speech: Patient's speech is fluent and nonpressured. Mood/Affect: Mood is improving mildly, affect is congruent and constricted. Suicidality/Homicidality: Patient denies having any suicidal or homicidal ideation intent or plan. Perceptions: Patient denies any visual hallucinations and denies any auditory hallucinations Though content/process: There is no evidence of any delusional thought content and thought process is linear and goal-directed. Memory and concentration: AOX3, grossly intact for the purposes of this session Judgment and insight: Improving mildly Vital Signs Temp 97.3 F L 07/25/22 02:53 Pulse 111 H 07/25/22 02:53 Resp 14 07/25/22 02:53 BP 131/63 07/25/22 02:53 Pulse Ox 97 07/25/22 02:53 FiO2 Intake & Output 07/24/22 07/25/22 07/25/22 18:59 06:59 18:59 Weight 70.1 kg Assessment Schizoaffective disorder, bipolar type methamphetamine use disorder Cannabis use disorder Generalized anxiety disorder Plan: -Patient continues to meet criteria for inpatient psychiatric admission for s ymptom stabilization and safety. Patient has signed adult voluntary form and medication consent and was placed in patient's chart. -Medications: continue gabapentin 800 mg by mouth 4 times a day for off label use for anxiety Elavil 100 mg daily at bedtime for depression/anxiety/migraines Zyprexa 10 mg by mouth at bedtime for mood stabilization -When necessary Vistaril and Zyprexa for agitation/aggression. -NRT - nicotine patch -SW on board for discharge planning. Encouraged the patient to participate in milieu.
[2022-07-25] MEDS: AMITRIPTYLINE HCL 50 MG TAB PO SCH (20:43)
[2022-07-25] MEDS: OLANZapine 10 MG TAB PO SCH (20:43)
[2022-07-26] MEDS: BUTALB/APAP/CAFF 50-325-40MG TAB PO PRN ×3 (00:05→11:08)
[2022-07-26] MEDS: hydrOXYzine pamoate 25 MG CAP PO PRN ×3 (01:52→13:00)
[2022-07-26] MEDS: ACETAMINOPHEN TAB 325 MG TAB PO PRN (05:56)
[2022-07-26] MEDS: GABAPENTIN 400 MG CAP PO SCH ×2 (07:44→13:00)
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
== END 2022-07-26 14:20 | disposition home or self-care (01) | DRG 885 ==
LOC: EC 18:55 → 3MHU 07-21 02:54
PROVIDERS: ADMIT Psychiatry & Neurology Psychiatry; ATTEND Psychiatry & Neurology Psychiatry
DX: F25.0 Schizoaffective disorder, bipolar type (principal); R45.851 Suicidal ideations; F15.20 Other stimulant dependence, uncomplicated; G47.00 Insomnia, unspecified; F41.0 Panic disorder [episodic paroxysmal anxiety]; F41.1 Generalized anxiety disorder; G40.909 Epilepsy, unspecified, not intractable, without status epilepticus; R45.850 Homicidal ideations; F12.10 Cannabis abuse, uncomplicated; Z79.899 Other long term (current) drug therapy; Z87.891 Personal history of nicotine dependence; Z56.0 Unemployment, unspecified; Z88.5 Allergy status to narcotic agent; Z88.8 Allergy status to other drugs, medicaments and biological substances; Z71.51 Drug abuse counseling and surveillance of drug abuser
CPT/HCPCS: 80306; 81003; 82075; 87635; 99285

== ENCOUNTER 2022-07-26 16:54 | Emergency (ER) | payer MEDICARE, OTHER ==
[2022-07-26 17:39] VITALS: TEMP 98.2
--- NOTE | 2022-07-26 18:26 | ED ---
General Adult HPI - General Chief complaint: Psychiatric Symptoms Stated complaint: mental health Time Seen by Provider: 07/26/22 17:55 Source: patient, RN notes reviewed, old records reviewed Mode of arrival: ambulatory Limitations: no limitations - History of Present Illness Initial comments: This is a 31-year-old male who presents emergency department stating that he just left the psych floor 2 hours ago and decided that he shouldn't of left he feels as though he should spend a few more days her. Patient states he is having some suicidal thoughts. Patient does not have any active plan. Patient denies any drug use or alcohol use. Patient denies any physical complaints today. - Related Data Previous Rx's Medication Instructions Recorded Amitriptyline HCl [Elavil] 100 mg PO HS 30 Days tab 07/26/22 Butalb/APAP/Caff 50-325-40Mg 1 tab PO Q6HR PRN 3 Days tab 07/26/22 [Fioricet 50-325-40] Gabapentin [Neurontin] 800 mg PO QID 30 Days cap 07/26/22 OLANZapine [ZyPREXA] 10 mg PO HS 30 Days tab 07/26/22 hydrOXYzine pamoate [Vistaril] 50 mg PO QID PRN 15 Days cap 07/26/22 Allergies Allergy/AdvReac Type Severity Reaction Status Date / Time aripiprazole [From Abilify] Allergy Unknown Verified 07/26/22 17:39 fluphenazine HCl Allergy Unknown Verified 07/26/22 17:39 [From Prolixin] paliperidone [From Invega] Allergy Unknown Verified 07/26/22 17:39 propoxyphene Allergy Unknown Verified 07/26/22 17:39 [From Darvocet-N] risperidone [From Risperdal] Allergy Unknown Verified 07/26/22 17:39 ziprasidone [From Geodon] Allergy Unknown Verified 07/26/22 17:39 fluphenazine enanthate AdvReac Severe Trismus Verified 07/26/22 17:39 [From Prolixin] haloperidol [From Haldol] AdvReac Unknown Verified 07/26/22 17:39 Review of Systems ROS Statement: Those systems with pertinent positive or pertinent negative responses have been documented in the HPI. ROS Other: All systems not noted in ROS Statement are negative. Past Medical History Past Medical History: Seizure Disorder Additional Past Medical History / Comment(s): Schizophrenia, right arm fracture, degenerative disc to lower back, and right wrist plate and screws History of Any Multi-Drug Resistant Organisms: None Reported Past Surgical History: Orthopedic Surgery Additional Past Surgical History / Comment(s): mouth surgery, reduction of right arm fracture. Past Anesthesia/Blood Transfusion Reactions: No Reported Reaction Past Psychological History: Anxiety, Panic Disorder, Schizophrenia Smoking Status: Former smoker Past Alcohol Use History: Rare Past Drug Use History: Marijuana - Past Family History Mother Brother(s) Family Medical History: Unable to Obtain General Exam - General Exam Comments Initial Comments: GENERAL: Patient is well-developed and well-nourished. Patient is nontoxic and well- hydrated and is in no acute distress. ENT: Neck is soft and supple. No significant lymphadenopathy is noted. Oropharynx is clear. Moist mucous membranes. Neck has full range of motion without eliciting any pain. EYES: The sclera were anicteric and conjunctiva were pink and moist. Extraocular movements were intact and pupils were equal round and reactive to light. Eyelids were unremarkable. PULMONARY: Unlabored respirations. Good breath sounds bilaterally. No audible rales rhonchi or wheezing was noted. CARDIOVASCULAR: There is a regular rate and rhythm without any murmurs gallops or rubs. ABDOMEN: Soft and nontender with normal bowel sounds. SKIN: Skin is clear with no lesions or rashes and otherwise unremarkable. NEUROLOGIC: Patient is alert and oriented x3. Cranial nerves II through XII are grossly intact. Motor and sensory are also intact. Normal speech, volume and content. Symmetrical smile. MUSCULOSKELETAL: Normal extremities with adequate strength and full range of motion. LYMPHATICS: No significant lymphadenopathy is noted PSYCHIATRIC: Patient states he is sort of suicidal Limitations: no limitations Course Vital Signs 07/26/22 07/26/22 17:36 21:16 Temperature 98.2 F 98.2 F Pulse Rate 93 79 Respiratory 20 18 Rate Blood Pressure 121/80 125/61 O2 Sat by Pulse 97 97 Oximetry Medical Decision Making - Medical Decision Making EPS evaluated the patient and determined the patient to go home I'm in agreement with this. - Lab Data Lab Results 07/26/22 Range/Units 19:24 Urine Opiates Screen Not Detected (NotDetected) Ur Oxycodone Screen Not Detected (NotDetected) Urine Methadone Screen Not Detected (NotDetected) Ur Propoxyphene Screen Not Detected (NotDetected) Ur Barbiturates Screen Detected H (NotDetected) U Tricyclic Antidepress Detected H (NotDetected) Ur Phencyclidine Scrn Not Detected (NotDetected) Ur Amphetamines Screen Not Detected (NotDetected) U Methamphetamines Scrn Not Detected (NotDetected) U Benzodiazepines Scrn Not Detected (NotDetected) Urine Cocaine Screen Not Detected (NotDetected) U Marijuana (THC) Screen Not Detected (NotDetected) Disposition Clinical Impression: Situational depression Disposition: HOME SELF-CARE Condition: Good Instructions (If sedation given, give patient instructions): Depression (ED) Is patient prescribed a controlled substance at d/c from ED?: No Referrals: Anna Gandhi MD [Primary Care Provider] - 1-2 days Time of Disposition: 21:30
[2022-07-26 20:11] LABS: Amphetamine Screen,Urine Not Detected (NotDetected); Benzodiazepines Screen,Urine Not Detected (NotDetected); Cocaine Screen,Urine Not Detected (NotDetected); Opiate Screen,Urine Not Detected (NotDetected); Phencyclidine Screen,Urine Not Detected (NotDetected); Urn Cannabinoid Scrn Not Detected (NotDetected)
[2022-07-26 20:12] LABS: Barbiturate Screen,Urine Detected (NotDetected); Methadone Screen, Urine Not Detected (NotDetected); Oxycodone Screen, Urine Not Detected (NotDetected); Tricyclic Antidepressant,Urine Detected (NotDetected)
[2022-07-26 21:17] VITALS: BP 125/61; PULSE 79; RESP 18
== END 2022-07-26 21:57 | disposition home or self-care (01) ==
LOC: EC 16:54
DX: F32.A Depression, unspecified (principal); F12.90 Cannabis use, unspecified, uncomplicated; Z88.8 Allergy status to other drugs, medicaments and biological substances; Z87.891 Personal history of nicotine dependence; Z88.7 Allergy status to serum and vaccine; Z88.5 Allergy status to narcotic agent
CPT/HCPCS: 80306; 99284

== ENCOUNTER 2022-07-30 07:48 | Emergency (ER) | payer MEDICARE, OTHER | END 2022-07-30 12:30 | LOC: EC 07:48 | DX: Z53.21 Procedure and treatment not carried out due to patient leaving prior to being seen by health care provider (principal) | CPT/HCPCS: 99499 ==

== ENCOUNTER 2022-08-02 21:50 | Emergency (ER) | payer MEDICARE, OTHER ==
[2022-08-02 21:58] VITALS: RESP 18; TEMP 97.7
--- NOTE | 2022-08-02 22:36 | ED ---
General Adult HPI - General Source: patient, RN notes reviewed Mode of arrival: ambulatory Limitations: no limitations <Kehinde Velarde - Last Filed: 08/02/22 22:32> <Hesham Winter - Last Filed: 08/03/22 05:36> - General Chief complaint: Psychiatric Symptoms Stated complaint: Anxiety Time Seen by Provider: 08/02/22 22:10 - History of Present Illness Initial comments: Patient is a pleasant 31-year-old male presenting to the emergency department with concerns with his anxiety. Patient states the last couple days he has been fearful that he will have a seizure. Patient feels depressed and anxious regarding this. Patient states he is having depression and suicidal thoughts. Patient denies chest discomfort however just states that it was a feeling of perceiving he was going to have a seizure. (Kehinde Velarde) - Related Data Previous Rx's Medication Instructions Recorded Amitriptyline HCl [Elavil] 100 mg PO HS 30 Days tab 07/26/22 Butalb/APAP/Caff 50-325-40Mg 1 tab PO Q6HR PRN 3 Days tab 07/26/22 [Fioricet 50-325-40] Gabapentin [Neurontin] 800 mg PO QID 30 Days cap 07/26/22 OLANZapine [ZyPREXA] 10 mg PO HS 30 Days tab 07/26/22 hydrOXYzine pamoate [Vistaril] 50 mg PO QID PRN 15 Days cap 07/26/22 Allergies Allergy/AdvReac Type Severity Reaction Status Date / Time aripiprazole [From Abilify] Allergy Unknown Verified 08/02/22 21:58 fluphenazine HCl Allergy Unknown Verified 08/02/22 21:58 [From Prolixin] paliperidone [From Invega] Allergy Unknown Verified 08/02/22 21:58 propoxyphene Allergy Unknown Verified 08/02/22 21:58 [From Darvocet-N] risperidone [From Risperdal] Allergy Unknown Verified 08/02/22 21:58 ziprasidone [From Geodon] Allergy Unknown Verified 08/02/22 21:58 fluphenazine enanthate AdvReac Severe Trismus Verified 08/02/22 21:58 [From Prolixin] haloperidol [From Haldol] AdvReac Unknown Verified 08/02/22 21:58 Review of Systems ROS Other: All systems not noted in ROS Statement are negative. Constitutional: Denies: fever Eyes: Denies: eye pain ENT: Denies: ear pain Respiratory: Denies: cough Cardiovascular: Reports: as per HPI. Denies: chest pain Endocrine: Denies: fatigue Gastrointestinal: Denies: abdominal pain Genitourinary: Denies: urgency Musculoskeletal: Denies: back pain Skin: Denies: rash Psychiatric: Reports: anxiety <Kehinde Velarde - Last Filed: 08/02/22 22:32> ROS Other: All systems not noted in ROS Statement are negative. <Hesham Winter John - Last Filed: 08/03/22 05:36> ROS Statement: Those systems with pertinent positive or pertinent negative responses have been documented in the HPI. Past Medical History Past Medical History: Seizure Disorder Additional Past Medical History / Comment(s): Schizophrenia, right arm fracture, degenerative disc to lower back, and right wrist plate and screws History of Any Multi-Drug Resistant Organisms: None Reported Past Surgical History: Orthopedic Surgery Additional Past Surgical History / Comment(s): mouth surgery, reduction of right arm fracture. Past Anesthesia/Blood Transfusion Reactions: No Reported Reaction Past Psychological History: Anxiety, Panic Disorder, Schizophrenia Smoking Status: Former smoker Past Alcohol Use History: Rare Past Drug Use History: Marijuana - Past Family History Mother Brother(s) Family Medical History: Unable to Obtain <Kehinde Velarde Last Filed: 08/02/22 22:32> General Exam Limitations: no limitations General appearance: alert, in no apparent distress Head exam: Present: normocephalic Eye exam: Present: normal appearance Neck exam: Present: normal inspection Respiratory exam: Present: normal lung sounds bilaterally. Absent: chest wall tenderness Cardiovascular Exam: Present: regular rate, normal rhythm Expanded Peripheral pulses: 2+: Radial (R), Radial (L) GI/Abdominal exam: Present: soft. Absent: tenderness Extremities exam: Present: normal inspection. Absent: pedal edema, calf tenderness Neurological exam: Present: alert Psychiatric exam: Present: anxious Skin exam: Present: normal color <Kehinde Velarde - Last Filed: 08/02/22 22:32> General appearance: alert, in no apparent distress Head exam: Present: atraumatic, normocephalic, normal inspection Eye exam: Present: normal appearance, PERRL, EOMI. Absent: scleral icterus, conjunctival injection, periorbital swelling ENT exam: Present: normal exam, mucous membranes moist Neck exam: Present: normal inspection. Absent: tenderness, meningismus, lymphadenopathy Respiratory exam: Present: normal lung sounds bilaterally. Absent: respiratory distress, wheezes, rales, rhonchi, stridor Cardiovascular Exam: Present: regular rate, normal rhythm, normal heart sounds. Absent: systolic murmur, diastolic murmur, rubs, gallop, clicks GI/Abdominal exam: Present: soft, normal bowel sounds. Absent: distended, tenderness, guarding, rebound, rigid Extremities exam: Present: normal inspection, full ROM, normal capillary refill. Absent: tenderness, pedal edema, joint swelling, calf tenderness Back exam: Present: normal inspection Neurological exam: Present: alert, oriented X3, CN II-XII intact Psychiatric exam: Present: normal affect, normal mood Skin exam: Present: warm, dry, intact, normal color. Absent: rash <Hesham Winter - Last Filed: 08/03/22 05:36> Course <Hesham Winter - Last Filed: 08/03/22 05:36> Vital Signs 08/02/22 21:54 Temperature 97.7 F Pulse Rate 96 Respiratory 18 Rate Blood Pressure 137/89 O2 Sat by Pulse 97 Oximetry - Reevaluation(s) Reevaluation #1: 08/03/22 05:35 Medical record is reviewed 08/03/22 05:35 Medical clear for psychiatric evaluation (Hesham Winter) EKG Findings - EKG Comments: EKG Findings:: Sinus rhythm rate of 90. MT 104. QRS 11. QT 351. QTC 399. Normal axis. Normal QRS. No acute ST change. <Kehinde Velarde - Last Filed: 08/02/22 22:32> Medical Decision Making <Hesham Winter - Last Filed: 08/03/22 05:36> - Medical Decision Making 31 male to the emergency department for psychiatric evaluation. Patient is seen and evaluated safe for discharge home (Hesham Winter) - Lab Data Lab Results 08/03/22 Range/Units 00:21 Urine Opiates Screen Not Detected (NotDetected) Ur Oxycodone Screen Not Detected (NotDetected) Urine Methadone Screen Not Detected (NotDetected) Ur Propoxyphene Screen Not Detected (NotDetected) Ur Barbiturates Screen Detected H (NotDetected) U Tricyclic Antidepress Not Detected (NotDetected) Ur Phencyclidine Scrn Not Detected (NotDetected) Ur Amphetamines Screen Not Detected (NotDetected) U Methamphetamines Scrn Not Detected (NotDetected) U Benzodiazepines Scrn Not Detected (NotDetected) Urine Cocaine Screen Not Detected (NotDetected) U Marijuana (THC) Screen Not Detected (NotDetected) Disposition <Kehinde Velarde - Last Filed: 08/02/22 22:32> Is patient prescribed a controlled substance at d/c from ED?: No <Hesham Winter - Last Filed: 08/03/22 05:36> Clinical Impression: Depression Disposition: HOME SELF-CARE Condition: Fair Instructions (If sedation given, give patient instructions): Depression (ED) Referrals: Anna Gandhi MD [Primary Care Provider] - 1-2 days
[2022-08-03 01:25] LABS: Amphetamine Screen,Urine Not Detected (NotDetected); Barbiturate Screen,Urine Detected (NotDetected); Benzodiazepines Screen,Urine Not Detected (NotDetected); Cocaine Screen,Urine Not Detected (NotDetected); Methadone Screen, Urine Not Detected (NotDetected); Opiate Screen,Urine Not Detected (NotDetected); Oxycodone Screen, Urine Not Detected (NotDetected); Phencyclidine Screen,Urine Not Detected (NotDetected); Tricyclic Antidepressant,Urine Not Detected (NotDetected); Urn Cannabinoid Scrn Not Detected (NotDetected)
[2022-08-03 06:23] VITALS: BP 107/65; PULSE 94
== END 2022-08-03 10:14 | disposition home or self-care (01) ==
LOC: EC 21:50
DX: F32.A Depression, unspecified (principal); F41.9 Anxiety disorder, unspecified; Z87.891 Personal history of nicotine dependence; F12.90 Cannabis use, unspecified, uncomplicated; Z88.8 Allergy status to other drugs, medicaments and biological substances; Z79.899 Other long term (current) drug therapy
CPT/HCPCS: 80306; 82075; 93005; 99285

== ENCOUNTER 2022-08-06 11:49 | Inpatient (IN) | payer MEDICARE, MEDICAID ==
--- NOTE | 2022-08-06 14:34 | XR ---
EXAMINATION TYPE: XR hand limited LT DATE OF EXAM: 08/06/2022 COMPARISON: NONE HISTORY: Pain TECHNIQUE: 2 views FINDINGS: Metacarpals are intact. I see no fracture nor dislocation. Joint spaces are normal. There a re no erosions. Carpal bones are intact. IMPRESSION: Negative left hand exam. No fracture.
--- NOTE | 2022-08-06 14:54 | ED ---
General Adult HPI - General Chief complaint: Psychiatric Symptoms Stated complaint: EPS eval Time Seen by Provider: 08/06/22 13:45 Source: patient, RN notes reviewed, old records reviewed Mode of arrival: ambulatory Limitations: no limitations - History of Present Illness Initial comments: Patient is a 32-year-old male with past medical history remarkable for seizure disorder, schizophrenia was brought in by his mother for psych evaluation. Patient is feeling suicidal. Denies any attempts or plans. Also endorses possible hallucinations but does not tethered to details with me. Denies any homicidal ideations, attempts, plans. Patient does have a left hand injury which he states is from coffeepot. Endorses mild pain. There is a small abrasi on over the palmar this hand and anterior aspect of the risks. His no other acute plans at this time. Presents for further evaluation. Denies chest pain, shortness breath, fevers, chills, cough. - Related Data Home Medications Medication Instructions Recorded Confirmed Gabapentin 800 mg PO QID 08/06/22 08/06/22 hydrOXYzine pamoate [hydrOXYzine 25 mg PO QID PRN 08/06/22 08/06/22 PAMOATE] Previous Rx's Medication Instructions Recorded Amitriptyline HCl [Elavil] 100 mg PO HS 30 Days tab 07/26/22 Butalb/APAP/Caff 50-325-40Mg 1 tab PO Q6HR PRN 3 Days tab 07/26/22 [Fioricet 50-325-40] OLANZapine [ZyPREXA] 10 mg PO HS 30 Days tab 07/26/22 Allergies Allergy/AdvReac Type Severity Reaction Status Date / Time aripiprazole [From Abilify] Allergy Unknown Verified 08/06/22 19:24 fluphenazine HCl Allergy Unknown Verified 08/06/22 19:24 [From Prolixin] paliperidone [From Invega] Allergy Unknown Verified 08/06/22 19:24 propoxyphene Allergy Unknown Verified 08/06/22 19:24 [From Darvocet-N] risperidone [From Risperdal] Allergy Unknown Verified 08/06/22 19:24 ziprasidone [From Geodon] Allergy Unknown Verified 08/06/22 19:24 fluphenazine enanthate AdvReac Severe Trismus Verified 08/06/22 19:24 [From Prolixin] haloperidol [From Haldol] AdvReac Unknown Verified 08/06/22 19:24 Review of Systems ROS Statement: Those systems with pertinent positive or pertinent negative responses have been documented in the HPI. Review of Systems: CONST: Denies fever EYES: Denies blurry vision ENT: Denies nasal congestion C/V: Denies Chest pain RESP: Denies shortness of breath GI: Denies abdominal pain : Denies dysuria SKIN: Denies rash. MSK: Denies joint pain. NEURO: Denies headache PSYCH: Denies homicidal ideations/plans/attempts. Denies visual or auditory hallucinations. He endorses suicidal ideation. Denies plan or attempt. ROS Other: All systems not noted in ROS Statement are negative. Past Medical History Past Medical History: Seizure Disorder Additional Past Medical History / Comment(s): Schizophrenia, right arm fracture, degenerative disc to lower back, and right wrist plate and screws History of Any Multi-Drug Resistant Organisms: None Reported Past Surgical History: Orthopedic Surgery Additional Past Surgical History / Comment(s): mouth surgery, reduction of right arm fracture. Past Anesthesia/Blood Transfusion Reactions: No Reported Reaction Past Psychological History: Anxiety, Panic Disorder, Schizophrenia Smoking Status: Former smoker Past Alcohol Use History: Rare Past Drug Use History: Marijuana - Past Family History Mother Brother(s) Family Medical History: Unable to Obtain General Exam - General Exam Comments Initial Comments: General: Appears in no acute distress. HEAD: Normal with no signs of head trauma. EYES: PERRLA, EOMI, conjunctiva normal, no discharge. ENT: Hearing grossly intact, normal oropharynx. RESPIRATORY: Clear breath sounds bilaterally. No wheezes, rales, or rhonchi. C/V: Regular rate and rhythm. S1 and S2 auscultated, no edema, peripheral pulses 2+ and intact throughout ABD: Abd is soft, nontender, nondistended EXT: Normal range of motion, no obvious deformity SKIN: Healing abrasions to the left palm, left wrist. NEURO: Alert and oriented 4. Limitations: no limitations Course Vital Signs 08/06/22 08/06/22 08/06/22 12:01 14:00 15:00 Temperature 98.2 F Pulse Rate 81 86 68 Respiratory 20 19 16 Rate Blood Pressure 136/81 145/69 130/80 O2 Sat by Pulse 99 99 98 Oximetry 08/06/22 17:43 Temperature Pulse Rate 80 Respiratory 16 Rate Blood Pressure 130/80 O2 Sat by Pulse 96 Oximetry Medical Decision Making - Medical Decision Making Based on the patient's presentation and physical exam, I'm concerned for psychiatric illness for the patient. He was placed in green scrubs. Suicide precautions were ordered. Sitter was ordered. Vital signs within acceptable limits. BAT is 0. UDS is pending at this time. I did offer the patient a tetanus booster however he states he last received it 8 years ago. Hand x-ray as interpreted by myself reveals no traumatic injury. No fracture, subluxation. No foreign body. At this time patient is medically cleared for evaluation by psychiatry. EPS was contacted. Disposition is pending psychiatric evaluation. EPS evaluated the patient and determined that he does meet inpatient psychiatric criteria. Covid swab was negative. UDS returned and was positive for tricyclics, meth amphetamine amphetamines, marijuana. I completed the clinical certificate. Patient was admitted to inpatient psychiatry in stable condition. - Lab Data Lab Results 08/06/22 08/06/22 Range/Units 14:00 16:19 Urine Opiates Screen Not Detected (NotDetected) Ur Oxycodone Screen Not Detected (NotDetected) Urine Methadone Screen Not Detected (NotDetected) Ur Propoxyphene Screen Not Detected (NotDetected) Ur Barbiturates Screen Not Detected (NotDetected) U Tricyclic Antidepress Detected H (NotDetected) Ur Phencyclidine Scrn Not Detected (NotDetected) Ur Amphetamines Screen Detected H (NotDetected) U Methamphetamines Scrn Detected H (NotDetected) U Benzodiazepines Scrn Not Detected (NotDetected) Urine Cocaine Screen Not Detected (NotDetected) U Marijuana (THC) Screen Detected H (NotDetected) Coronavirus (PCR) Not Detected (Not Detectd) Disposition Clinical Impression: Encounter for psychiatric assessment, Suicidal ideations Disposition: ADMITTED IP TO THIS HOSP Condition: Stable
[2022-08-06 15:09] LABS: Cocaine Screen,Urine Not Detected (NotDetected); Phencyclidine Screen,Urine Not Detected (NotDetected); Urn Cannabinoid Scrn Detected (NotDetected)
[2022-08-06 15:10] LABS: Amphetamine Screen,Urine Detected (NotDetected); Barbiturate Screen,Urine Not Detected (NotDetected); Benzodiazepines Screen,Urine Not Detected (NotDetected); Methadone Screen, Urine Not Detected (NotDetected); Opiate Screen,Urine Not Detected (NotDetected); Oxycodone Screen, Urine Not Detected (NotDetected); Tricyclic Antidepressant,Urine Detected (NotDetected)
[2022-08-06] MEDS ORDERED: MAGNESIUM HYDROXIDE 2,400 MG/10 ML CUP PO PRN (17:11)
[2022-08-06] MEDS ORDERED: MAG HYDROX/AL HYDROX/SIMETH 30 ML CUP PO PRN (17:11)
[2022-08-06] MEDS ORDERED: LORazepam 1 MG TAB PO PRN (17:11)
[2022-08-06] MEDS ORDERED: LORazepam 1 MG/0.5 ML VIAL IM PRN (17:19)
[2022-08-06] MEDS: GABAPENTIN 400 MG CAP PO SCH (20:20)
[2022-08-06] MEDS: BUTALB/APAP/CAFF 50-325-40MG TAB PO PRN (20:21)
[2022-08-06] MEDS ORDERED: OLANZapine 10 MG TAB PO SCH (21:00)
[2022-08-06] MEDS: AMITRIPTYLINE HCL 50 MG TAB PO SCH (22:19)
[2022-08-07] MEDS: GABAPENTIN 400 MG CAP PO SCH ×3 (07:59→20:04)
[2022-08-07] MEDS: BUTALB/APAP/CAFF 50-325-40MG TAB PO PRN ×3 (07:59→20:04)
[2022-08-07] MEDS: NICOTINE 14MG/24HR PATCH TRANSDERM SCH (08:01)
[2022-08-07] MEDS: hydrOXYzine pamoate 25 MG CAP PO PRN ×3 (09:15→20:05)
--- NOTE | 2022-08-07 19:38 | P.CONS ---
History of Present Illness - Reason for Consult Consult date: 08/07/22 - Chief Complaint Psychiatric evaluation - History of Present Illness 32-year-old male with past medical history remarkable for seizure disorder, schizophrenia was brought in by his mother for psych evaluation. Patient is feeling suicidal. Denies any attempts or plans. Also endorses possible hallucinations but does not tethered to details with me. Denies any homicidal ideations, attempts, plans. Patient does have a left hand injury which he states is from coffeepot. Endorses mild pain. There is a small abrasion over the palmar this hand and anterior aspect of the risks. His no other acute plans at this time. Presents for further evaluation. Denies chest pain, shortness breath, fevers, chills, cough. Workup completed in ED including urine drug screen is positive for tricyclics, methamphetamines, marijuana Review of Systems REVIEW OF SYSTEMS: CONSTITUTIONAL: No fever, no malaise, no fatigue. HEENT: No recent visual problems or hearing problems. Denied any sore throat. CARDIOVASCULAR: No chest pain, orthopnea, PND, no palpitations, no syncope. PULMONARY: No shortness of breath, no cough, no hemoptysis. GASTROINTESTINAL: No diarrhea, no nausea, no vomiting, no abdominal pain. NEUROLOGICAL: No headaches, no weakness, no numbness. HEMATOLOGICAL: Denies any bleeding or petechiae. GENITOURINARY: Denies any burning micturition, frequency, or urgency. MUSCULOSKELETAL/RHEUMATOLOGICAL: Denies any joint pain, swelling, or any muscle pain. ENDOCRINE: Denies any polyuria or polydipsia. The rest of the 14-point review of systems is negative. Past Medical History Past Medical History: Seizure Disorder Additional Past Medical History / Comment(s): Schizophrenia, right arm fracture, degenerative disc to lower back, and right wrist plate and screws History of Any Multi-Drug Resistant Organisms: None Reported Past Surgical History: Orthopedic Surgery Additional Past Surgical History / Comment(s): mouth surgery, reduction of right arm fracture. Past Anesthesia/Blood Transfusion Reactions: No Reported Reaction Past Psychological History: Anxiety, Panic Disorder, Schizophrenia Smoking Status: Former smoker Past Alcohol Use History: Rare Past Drug Use History: Marijuana - Past Family History Mother Brother(s) Family Medical History: Unable to Obtain Medications and Allergies Home Medications Medication Instructions Recorded Confirmed Type Amitriptyline HCl [Elavil] 100 mg PO HS 30 Days tab 07/26/22 08/06/22 Rx Butalb/APAP/Caff 50-325-40Mg 1 tab PO Q6HR PRN 3 Days tab 07/26/22 08/06/22 Rx [Fioricet 50-325-40] OLANZapine [ZyPREXA] 10 mg PO HS 30 Days tab 07/26/22 08/06/22 Rx Gabapentin 800 mg PO QID 08/06/22 08/06/22 History hydrOXYzine pamoate [hydrOXYzine 25 mg PO QID PRN 08/06/22 08/06/22 History PAMOATE] Allergies Allergy/AdvReac Type Severity Reaction Status Date / Time aripiprazole [From Abilify] Allergy Unknown Verified 08/06/22 19:24 fluphenazine HCl Allergy Unknown Verified 08/06/22 19:24 [From Prolixin] paliperidone [From Invega] Allergy Unknown Verified 08/06/22 19:24 propoxyphene Allergy Unknown Verified 08/06/22 19:24 [From Darvocet-N] risperidone [From Risperdal] Allergy Unknown Verified 08/06/22 19:24 ziprasidone [From Geodon] Allergy Unknown Verified 08/06/22 19:24 fluphenazine enanthate AdvReac Severe Trismus Verified 08/06/22 19:24 [From Prolixin] haloperidol [From Haldol] AdvReac Unknown Verified 08/06/22 19:24 Physical Exam Vitals: Vital Signs Temp Pulse Pulse Resp BP BP Pulse Ox 08/06/22 20:01 97.4 F L 79 16 139/92 08/06/22 17:43 80 16 130/80 96 Intake and Output 08/07/22 08/07/22 08/07/22 06:59 14:59 22:59 Other: Weight 69.8 kg General: Appears in no acute distress. HEAD: Normal with no signs of head trauma. EYES: PERRLA, EOMI, conjunctiva normal, no discharge. ENT: Hearing grossly intact, normal oropharynx. RESPIRATORY: Clear breath sounds bilaterally. No wheezes, rales, or rhonchi. C/V: Regular rate and rhythm. S1 and S2 auscultated, no edema, peripheral pulses 2+ and intact throughout ABD: Abd is soft, nontender, nondistended EXT: Normal range of motion, no obvious deformity SKIN: Healing abrasions to the left palm, left wrist. NEURO: Alert and oriented 4. Assessment and Plan Assessment: 1. Suicidal ideation 2. Polysubstance abuse 3. Low back pain/degenerative disc disease 4. Right wrist fracture status post internal fixation 5. Schizoaffective disorder We will continue with current medications; patient requesting narcotics for pain control; counseling done on substance abuse patient not very receptive at this time;
[2022-08-07] MEDS: OLANZapine 10 MG TAB PO SCH (20:04)
[2022-08-07] MEDS: AMITRIPTYLINE HCL 50 MG TAB PO SCH (20:05)
--- NOTE | 2022-08-07 22:44 | P.HP ---
Psychiatric H&P - . H&P Date: 08/07/22 History & Physical: IDENTIFYING DATA: Patient is a 32 year old homeless male with history of schizoaffective disorder-bipolar type, ESVIN, methamphetamine and cannabis use disorder, and noncompliance with treatment. HPI: Per chart, "Pt was brought in [to the hospital] on a petition by his mother. Pt was just discharged from [facility] on 07-26-22. When he was discharged he had no place to go. He rode a bus for hours. After awhile he got a motel room that he trashed. He called his mother who found he had ripped the sink of the wall and had debris all over the room. He admitted to his mother as she stated to me that he was not taking his medications. She also found out that he has been talking to others doctors and getting medication she doesn't know about and she is his coguardian. Pt does admit he is suicidal but denies all else." I attempted to evaluate patient twice today and each time he is dismissive and abruptly walks away after 1-2 minutes of observing him, and refuses assessment, states "I'm not fuckin' talkin' to you!". He appears overtly manic and psychotic, is aggressively pacing the unit, attending to internal stimuli and engaged in self-dialogue, is repeatedly swearing to himself and others, and at one point he appeared to hit himself. He appears disheveled, restless, guarded and paranoid. He was recently discharged from the mental health unit on 07/26/2022 on regimen of Gabapentin 800 mg 4 times daily, Vistaril 50 mg 4 times daily as needed, Zyprexa 10 mg at bedtime and Elavil 100 mg at bedtime, however he appears to have been noncompliant with these medications after discharge. Most of history below is taken from chart due to his lack of cooperation with evaluation. UDS completed on 08/06/22 is positive for tricyclic antidepressants, methamphetamines and THC. He has a long history of methamphetamine and cannabis abuse. PAST PSYCHIATRIC HISTORY: Per chart, he was previously diagnosed with anxiety and schizophrenia disorder. The patient has had previous home medication regimens of Zyprexa, Vistaril, Gabapentin, Klonopin, Abilify, Prolixin, Invega, Risperdal, Geodon, Haldol, Artane, Saphris Ambien, Wellbutrin XL, Elavil. Patient has history of many psychiatric admission, most recently discharged from [facility] on 07/26/22.. He is open with [facility] and the ACT team. No known history of history of suicide attempts. PMH: Past Medical History: Seizure Disorder Additional Past Medical History / Comment(s): Schizophrenia, right arm fracture, degenerative disc to lower back, and right wrist plate and screws History of Any Multi-Drug Resistant Organisms: None Reported Past Surgical History: Orthopedic Surgery Additional Past Surgical History / Comment(s): mouth surgery, reduction of right arm fracture. Past Anesthesia/Blood Transfusion Reactions: No Reported Reaction Past Psychological History: Anxiety, Panic Disorder, Schizophrenia Smoking Status: Former smoker Past Alcohol Use History: Rare Past Drug Use History: Marijuana ALLERGIES: as per EMR CHEMICAL DEPENDENCY HISTORY: as per HPI FAMILY PSYCHIATRIC/SUBSTANCE USE HISTORY: None known. SOCIAL HISTORY: [facility], [facility]. Has a guardian. MENTAL STATUS EXAM: General Appearance: Patient appears to be disheveled with poor hygiene and grooming. Behavior: He is aggressively pacing the unit, attending to internal stimuli and engaged in self-dialogue, is repeatedly swearing to himself and others, and at one point he appeared to hit himself. Speech: Patient's speech is loud. Mood/Affect: Mood is "fine"/irritable, affect is congruent and constricted. Suicidality/Homicidality: Unable to fully assess due to his lack of cooperation. Perceptions: He is overtly psychotic and responding to internal stimuli, engaged in self-dialogue. Thought process: Argumentative, Rambling profanities and engaged in self- dialogue Thought content: Rambling profanities and engaged in self-dialogue Memory and concentration: He is alert and oriented to person and place. Unable to fully assess due to his lack of cooperation. Judgment and insight: Very poor. STRENGTHS/WEAKNESSES: Strength is that patient is he is linked with ACT team. Weakness is that patient has poor judgment and is impulsive. INTELLECT: Estimated as average IMPRESSIONS: Schizoaffective disorder, bipolar type - manic, severe Methamphetamine use disorder Cannabis use disorder Noncompliance with treatment PLAN: -Patient is admitted under involuntary status to [facility] for stabilization of psychiatric symptoms and safety. A second certification was completed and along with petition will be filed for court. -Medication: Increase Zyprexa to 10 mg BID for mood stabilization and psychosis. He would benefit from a long-acting injectable. Please confirm his list of allergies with his mother/guardian and [facility] since I doubt he is "allergic" to so many antipsychotics that are available as PANIAGUA. Restart Amitriptyline 100 mg QHS for mood. Restart Gabapentin at lower dose of 800 mg TID for mood. -Ativan and Haldol PRN for agitation/aggression -Substance abuse treatment for long history of methamphetamine abuse. -Internal Medicine consult to perform medical evaluation and physical. -NRT - not needed - on board for discharge planning. Encourage patient to participate in groups to work on coping skills. Will await deferral and court date. Allergies Allergy/AdvReac Type Severity Reaction Status Date / Time aripiprazole [From Abilify] Allergy Unknown Verified 08/06/22 19:24 fluphenazine HCl Allergy Unknown Verified 08/06/22 19:24 [From Prolixin] paliperidone [From Invega] Allergy Unknown Verified 08/06/22 19:24 propoxyphene Allergy Unknown Verified 08/06/22 19:24 [From Darvocet-N] risperidone [From Risperdal] Allergy Unknown Verified 08/06/22 19:24 ziprasidone [From Geodon] Allergy Unknown Verified 08/06/22 19:24 fluphenazine enanthate AdvReac Severe Trismus Verified 08/06/22 19:24 [From Prolixin] haloperidol [From Haldol] AdvReac Unknown Verified 08/06/22 19:24 Vital Signs Temp 97.4 F L 08/06/22 20:01 Pulse 79 08/06/22 20:01 Resp 16 08/06/22 20:01 BP 139/92 08/06/22 20:01 Pulse Ox 96 08/06/22 17:43 FiO2 Intake & Output 08/06/22 08/07/22 08/07/22 18:59 06:59 18:59 Weight 77.111 kg 69.8 kg Laboratory Last Values Urine Opiates Screen Not Detected (NotDetected) 08/06/22 14:00 Ur Oxycodone Screen Not Detected (NotDetected) 08/06/22 14:00 Urine Methadone Screen Not Detected (NotDetected) 08/06/22 14:00 Ur Propoxyphene Screen Not Detected (NotDetected) 08/06/22 14:00 Ur Barbiturates Screen Not Detected (NotDetected) 08/06/22 14:00 U Tricyclic Antidepress Detected (NotDetected) H 08/06/22 14:00 Ur Phencyclidine Scrn Not Detected (NotDetected) 08/06/22 14:00 Ur Amphetamines Screen Detected (NotDetected) H 08/06/22 14:00 U Methamphetamines Scrn Detected (NotDetected) H 08/06/22 14:00 U Benzodiazepines Scrn Not Detected (NotDetected) 08/06/22 14:00 Urine Cocaine Screen Not Detected (NotDetected) 08/06/22 14:00 U Marijuana (THC) Screen Detected (NotDetected) H 08/06/22 14:00 Coronavirus (PCR) Not Detected (Not Detectd) 08/06/22 16:19 08/07/22 15:03 08/07/22 15:03 08/07/22 22:22
[2022-08-08] MEDS: BUTALB/APAP/CAFF 50-325-40MG TAB PO PRN ×4 (02:52→21:06)
[2022-08-08] MEDS: hydrOXYzine pamoate 25 MG CAP PO PRN ×3 (02:52→15:17)
[2022-08-08] MEDS ORDERED: LORazepam 1 MG/0.5 ML VIAL IM PRN (09:13)
[2022-08-08] MEDS: NICOTINE 14MG/24HR PATCH TRANSDERM SCH (09:36)
[2022-08-08] MEDS: OLANZapine 10 MG TAB PO SCH ×2 (09:38→20:11)
[2022-08-08] MEDS: GABAPENTIN 400 MG CAP PO SCH ×4 (09:38→21:06)
[2022-08-08] MEDS ORDERED: chlorproMAZINE 25 MG/ML 2 ML AMP IM PRN (11:39)
--- NOTE | 2022-08-08 11:40 | P.PN ---
Progress Note - Text Progress Note Date: 08/08/22 Interval History: Patient was seen wandering the hallways and was directable and agreeable to speak with grant writer in the office. The patient is uncooperative during the psychiatric interview. When confronted about methamphetamine use, the patient downplays the role of methamphetamines and its effects on mood. He vehemently states that he needs to be back on his current medication regimen of Zyprexa, Elavil, gabapentin, and is requesting Klonopin for management of "seizures." The patient is constantly interrupting this provider when discussing mental health symptoms and the need to break this cycle of recurring hospitalizations. He is irritable and terminates the interview. Mental Status Exam: General Appearance: Patient appears to be stated age is alert, however not directable or cooperative. Behavior: Patient does not sit down during the interview and appears to be pacing the room. Elevated psychomotor activity. Speech: Patient's speech is rapid, pressured, and nonlinear. Repetitive. Mood/Affect: Mood is "pissed off." Affect is irritable and intense Suicidality/Homicidality: Patient denies having any suicidal or homicidal ideation intent or plan. Perceptions: Patient denies any visual hallucinations and denies any auditory hallucinations Though content/process: Patient is fixated on benzodiazepine medications for "seizures." Memory and concentration: Grossly poor Judgment and insight: Poor Vital Signs Temp 97.4 F L 08/08/22 08:02 Pulse 110 H 08/08/22 09:35 Resp 16 08/08/22 09:35 BP 135/79 08/08/22 09:35 Pulse Ox 98 08/08/22 08:02 FiO2 Intake & Output 08/07/22 08/08/22 08/08/22 18:59 06:59 18:59 Weight 69.8 kg 71.7 kg Assessment Schizoaffective disorder, bipolar type methamphetamine use disorder Cannabis use disorder Plan: -Patient continues to meet criteria for inpatient psychiatric admission for symptom stabilization and safety. The patient has been petitioned and certified -Medications: Zyprexa 10 mg by mouth twice a day for mood stabilization Elavil 100 mg by mouth at bedtime for migraine/anxiety Gabapentin 800 mg by mouth 3 times a day for anxiety -When necessary Ativan and Thorazine for agitation/aggression. -SW on board for discharge planning. Encouraged the patient to participate in milieu.
[2022-08-08 12:54] LABS: Appearance,Urine Clear (Clear); Bilirubin,Urine Negative (Negative); Blood,Urine Negative (Negative); Color,Urine Yellow; Glucose,Urine (UA) Negative (Negative); Ketones,Urine Negative (Negative); Leukocyte Esterase,Urine Negative (Negative); Mucus,Urine Many /hpf; Nitrite,Urine Negative (Negative); PH, Urine 6.5 (5.0-8.0); Protein,Urine 1+ (Negative); RBC,Urine 3 /hpf (0-5); Specific Gravity,Urine 1.036 (1.001-1.035); Squamous Epithelial Cell,Urine 1 /hpf (0-4); WBC,Urine 2 /hpf (0-5)
[2022-08-08] MEDS: AMITRIPTYLINE HCL 50 MG TAB PO SCH (20:11)
[2022-08-09] MEDS: BUTALB/APAP/CAFF 50-325-40MG TAB PO PRN ×3 (04:24→16:21)
[2022-08-09] MEDS: hydrOXYzine pamoate 25 MG CAP PO PRN ×3 (04:24→16:20)
[2022-08-09] MEDS: OLANZapine 10 MG TAB PO SCH ×2 (08:24→20:30)
[2022-08-09] MEDS: GABAPENTIN 400 MG CAP PO SCH ×4 (08:25→19:55)
--- NOTE | 2022-08-09 12:10 | P.PN ---
Progress Note - Text Progress Note Date: 08/09/22 Interval History: Patient was seen wandering the hallways and was directable and agreeable to speak with proposal writer in the office. The patient continues to fixate on benzodiazepine management and management of his perceived "seizure disorder." He expresses that he is only in the hospital because he is not getting the medications that he requires from [facility]. Numerous attempts to educate the patient on the medication process as well as psychiatric treatment was met with opposi tion. The patient is fixated on medication management and refuses to address any underlying pathology at this time. Discussion of any long-acting injectable formulation or lots of a court order leads the patient to be very irritable and upset and terminates the interview. He has however not endorsing any suicidal or homicidal ideation, intention, and/or plan. Reports no auditory or visual hallucinations. Mental Status Exam: General Appearance: Patient appears to be stated age is alert, however not directable or cooperative. Behavior: Patient does not sit down during the interview and appears to be pacing the room. Elevated psychomotor activity. Speech: Patient's speech is rapid, pressured, and nonlinear. Repetitive. Mood/Affect: Mood is "annoyed and stressed out." Affect is irritable Suicidality/Homicidality: Patient denies having any suicidal or homicidal ideation intent or plan. Perceptions: Patient denies any visual hallucinations and denies any auditory hallucinations Though content/process: Patient is fixated on benzodiazepine medications for "seizures." Memory and concentration: Grossly poor Judgment and insight: Poor Vital Signs Temp 97.2 F L 08/09/22 05:45 Pulse 77 08/09/22 05:45 Resp 17 08/09/22 05:45 BP 122/68 08/09/22 05:45 Pulse Ox 99 08/09/22 05:45 FiO2 Intake & Output 08/08/22 08/09/22 08/09/22 18:59 06:59 18:59 Weight 71.7 kg Laboratory Results - Last 24 Hours 08/06/22 14:00 Urine Color Yellow Urine Appearance Clear Urine pH 6.5 Ur Specific [place] 1.036 H Urine Protein 1+ H Urine Glucose (UA) Negative Urine Ketones Negative Urine Blood Negative Urine Nitrite Negative Urine Bilirubin Negative Urine Urobilinogen 3.0 Ur Leukocyte Esterase Negative Urine RBC 3 Urine WBC 2 Ur Squamous Epith Cells 1 Urine Mucus Many H Assessment Schizoaffective disorder, bipolar type methamphetamine use disorder Cannabis use disorder Plan: -Patient continues to meet criteria for inpatient psychiatric admission for symptom stabilization and safety. The patient has been petitioned and certified -Medications: Zyprexa 10 mg by mouth twice a day for mood stabilization Elavil 100 mg by mouth at bedtime for migraine/anxiety Gabapentin 800 mg by mouth 4 times a day for anxiety -When necessary Ativan and Thorazine for agitation/aggression. -SW on board for discharge planning. Encouraged the patient to participate in milieu.
[2022-08-09] MEDS: AMITRIPTYLINE HCL 50 MG TAB PO SCH (20:30)
[2022-08-10] MEDS: BUTALB/APAP/CAFF 50-325-40MG TAB PO PRN ×4 (00:09→20:31)
[2022-08-10] MEDS: hydrOXYzine pamoate 25 MG CAP PO PRN ×4 (00:10→20:32)
[2022-08-10] MEDS: GABAPENTIN 400 MG CAP PO SCH ×5 (00:10→20:31)
[2022-08-10] MEDS: OLANZapine 10 MG TAB PO SCH ×2 (08:32→20:31)
--- NOTE | 2022-08-10 11:35 | P.PN ---
Progress Note - Text Progress Note Date: 08/10/22 Interval History: Patient was seen wandering the hallways and was directable and agreeable to speak with com writer in the office. The patient continues to maintain that he is on the right medications. Any attempts to educate the patient on his numerous inpatient psychiatric admissions is met with futility as the patient constantly repeats to himself that he comes into the hospital every time he needs help. When confronted with the history of his distraction of property, the patient denies this and states that things are been blown out of proportion. The patient has had numerous psychiatric admissions however continues to maintain that he does not require any long-acting injectable medication. Furthermore, the patient reports no issues with his methamphetamine abuse. He is currently denying any suicidal or homicidal ideation, intention, and/or plan. He is deny ing any auditory or visual hallucinations. He does admit some generalized paranoia towards the treatment team and Asphalt Spreader Operator Baldev. He states that he is going to jesus everybody. When asked about on what grounds does he have a case, the patient is nonsensical in his answer and only reports that he no medications can be forced on him. Mental Status Exam: General Appearance: Patient appears to be stated age is alert, however not directable or cooperative. Behavior: Patient does not sit down during the interview and appears to be pacing the room. Elevated psychomotor activity. Speech: Patient's speech is rapid, pressured, and nonlinear. Repetitive. Mood/Affect: Mood is "I'm not ready to be discharged." Affect is irritable Suicidality/Homicidality: Patient denies having any suicidal or homicidal ideation intent or plan. Perceptions: Patient denies any visual hallucinations and denies any auditory hallucinations Though content/process: Patient is fixated on benzodiazepine medications for "seizures." Memory and concentration: Grossly poor Judgment and insight: Poor Vital Signs Temp 97.2 F L 08/10/22 06:54 Pulse 78 08/10/22 06:54 Resp 14 08/10/22 06:54 BP 114/74 08/10/22 06:54 Pulse Ox 99 08/09/22 05:45 FiO2 Laboratory Results Urine Color Yellow 08/06/22 14:00 Urine Appearance Clear (Clear) 08/06/22 14:00 Urine pH 6.5 (5.0-8.0) 08/06/22 14:00 Ur Specific [place] 1.036 (1.001-1.035) H 08/06/22 14:00 Urine Protein 1+ (Negative) H 08/06/22 14:00 Urine Glucose (UA) Negative (Negative) 08/06/22 14:00 Urine Ketones Negative (Negative) 08/06/22 14:00 Urine Blood Negative (Negative) 08/06/22 14:00 Urine Nitrite Negative (Negative) 08/06/22 14:00 Urine Bilirubin Negative (Negative) 08/06/22 14:00 Urine Urobilinogen 3.0 mg/dL (<2.0) 08/06/22 14:00 Ur Leukocyte Esterase Negative (Negative) 08/06/22 14:00 Urine RBC 3 /hpf (0-5) 08/06/22 14:00 Urine WBC 2 /hpf (0-5) 08/06/22 14:00 Ur Squamous Epith Cells 1 /hpf (0-4) 08/06/22 14:00 Urine Mucus Many /hpf (None) H 08/06/22 14:00 Urine Opiates Screen Not Detected (NotDetected) 08/06/22 14:00 Ur Oxycodone Screen Not Detected (NotDetected) 08/06/22 14:00 Urine Methadone Screen Not Detected (NotDetected) 08/06/22 14:00 Ur Propoxyphene Screen Not Detected (NotDetected) 08/06/22 14:00 Ur Barbiturates Screen Not Detected (NotDetected) 08/06/22 14:00 U Tricyclic Antidepress Detected (NotDetected) H 08/06/22 14:00 Ur Phencyclidine Scrn Not Detected (NotDetected) 08/06/22 14:00 Ur Amphetamines Screen Detected (NotDetected) H 08/06/22 14:00 U Methamphetamines Scrn Detected (NotDetected) H 08/06/22 14:00 U Benzodiazepines Scrn Not Detected (NotDetected) 08/06/22 14:00 Urine Cocaine Screen Not Detected (NotDetected) 08/06/22 14:00 U Marijuana (THC) Screen Detected (NotDetected) H 08/06/22 14:00 Coronavirus (PCR) Not Detected (Not Detectd) 08/06/22 16:19 Assessment Schizoaffective disorder, bipolar type methamphetamine use disorder Cannabis use disorder Plan: -Patient continues to meet criteria for inpatient psychiatric admission for symptom stabilization and safety. The patient has been petitioned and certified. Second clinical certificate has been filled out. As patient has had numerous psychiatric admissions, it is a recommendation to start a long-acting injectable medication. He is however reportedly ALLERGIC to every antipsychotic medication with the long-acting formulation. This is likely self-reported and not a true ALLERGY. We will likely start the patient on a low-dose of antipsychotic with close monitoring once the patient is under court order. -Consider state hospitalization for this patient. -Medications: Zyprexa 10 mg by mouth twice a day for mood stabilization Elavil 100 mg by mouth at bedtime for migraine/anxiety Gabapentin 800 mg by mouth 4 times a day for anxiety -When necessary Ativan and Thorazine for agitation/aggression. -SW on board for discharge planning. Encouraged the patient to participate in milieu.
[2022-08-10] MEDS: ACETAMINOPHEN TAB 325 MG TAB PO PRN (17:27)
[2022-08-10] MEDS: AMITRIPTYLINE HCL 50 MG TAB PO SCH (20:31)
[2022-08-11] MEDS: hydrOXYzine pamoate 25 MG CAP PO PRN ×2 (06:15→12:10)
[2022-08-11] MEDS: BUTALB/APAP/CAFF 50-325-40MG TAB PO PRN ×2 (06:15→12:10)
[2022-08-11] MEDS: GABAPENTIN 400 MG CAP PO SCH ×4 (08:09→20:35)
[2022-08-11] MEDS: OLANZapine 10 MG TAB PO SCH ×2 (08:09→20:35)
--- NOTE | 2022-08-11 13:04 | P.PN ---
Progress Note - Text Progress Note Date: 08/11/22 Interval History: Patient was seen wandering the hallways and was directable and agreeable to speak with va underwriter in the office. Patient continues to repeat himself stating reasons why he comes to the hospital is due to treatment for his "seizures." He is currently denying any suicidal or homicidal ideation, intention, and/or plan. He is not reporting any auditory or visual hallucinations. He denies any paranoia or other delusions. He continues to report that he feels "not ready" in terms of feeling ready for discharge. After discussion, it is determined that we will decrease the patient's Fioricet as he abuses this medication. Mental Status Exam: General Appearance: Patient appears to be stated age is alert, however not directable or cooperative. Behavior: Patient does not sit down during the interview and appears to be pacing the room. Normal psychomotor activity today. Speech: Patient's speech is rapid, and repetitive. Mood/Affect: Mood is "I'm not ready." Affect is irritable Suicidality/Homicidality: Patient denies having any suicidal or homicidal ideation intent or plan. Perceptions: Patient denies any visual hallucinations and denies any auditory hallucinations Though content/process: Patient continues to be fixated on "seizures." Memory and concentration: Grossly poor Judgment and insight: Poor Vital Signs Temp 97.6 F 08/11/22 06:20 Pulse 80 08/11/22 06:20 Resp 17 08/11/22 06:20 BP 100/59 08/11/22 06:20 Pulse Ox 97 08/11/22 06:20 FiO2 Assessment Schizoaffective disorder, bipolar type methamphetamine use disorder Cannabis use disorder Plan: -Patient continues to meet criteria for inpatient psychiatric admission for symptom stabilization and safety. The patient has been petitioned and certified. Patient deferred mental health court. -Medications: Decrease Fioricet to 1 dose per day to be discontinued tomorrow. Zyprexa 10 mg by mouth twice a day for mood stabilization Elavil 100 mg by mouth at bedtime for migraine/anxiety Gabapentin 800 mg by mouth 4 times a day for anxiety -When necessary Ativan and Thorazine for agitation/aggression. -SW on board for discharge planning. Encouraged the patient to participate in milieu.
[2022-08-11] MEDS ORDERED: MAG HYDROX/AL HYDROX/SIMETH 355 ML BOTTLE PO PRN (14:49)
[2022-08-11] MEDS: AMITRIPTYLINE HCL 50 MG TAB PO SCH (20:35)
[2022-08-12] MEDS: hydrOXYzine pamoate 25 MG CAP PO PRN ×4 (03:47→22:40)
[2022-08-12 06:19] VITALS: RESP 16
[2022-08-12] MEDS: GABAPENTIN 400 MG CAP PO SCH ×4 (08:47→20:28)
[2022-08-12] MEDS: OLANZapine 10 MG TAB PO SCH ×2 (08:47→20:28)
[2022-08-12] MEDS: BUTALB/APAP/CAFF 50-325-40MG TAB PO PRN (08:49)
--- NOTE | 2022-08-12 11:38 | P.PN ---
Progress Note - Text Progress Note Date: 08/12/22 Interval History: Patient was seen wandering the hallways and was directable and agreeable to speak with telegraphic typewriter installer in his room. The patient was informed that we will distance continue any Fioricet for him. He was informed that we will discontinue the medication due to his abuse of methamphetamines and other controlled medications. Patient challenges this however later relented. He is currently denying any suicidal or homicidal ideation, intention, and/or plan. He is not reporting any auditory or visual hallucinations. He denies any paranoia or other delusions. Mental Status Exam: General Appearance: Patient appears to be stated age is alert, however not directable or cooperative. Behavior: Patient does not sit down during the interview and appears to be pacing the room. Normal psychomotor activity today. Speech: Patient's speech is normal in rate and volume. Monotone. Mood/Affect: Mood is "can I get more Fioricet." Affect is intense Suicidality/Homicidality: Patient denies having any suicidal or homicidal ideation intent or plan. Perceptions: Patient denies any visual hallucinations and denies any auditory hallucinations Though content/process: Patient continues to be fixated on "seizures." Fixated on Fioricet. Memory and concentration: Grossly poor Judgment and insight: Poor Assessment Schizoaffective disorder, bipolar type methamphetamine use disorder Cannabis use disorder Plan: -Patient continues to meet criteria for inpatient psychiatric admission for symptom stabilization and safety. The patient has been petitioned and certified. Patient deferred mental health court. -Anticipate discharge on Monday. -Medications: Discontinue Fioricet. DO NOT PRESCRIBE FIORICET. Zyprexa 10 mg by mouth twice a day for mood stabilization Elavil 100 mg by mouth at bedtime for migraine/anxiety Gabapentin 800 mg by mouth 4 times a day for anxiety -When necessary Ativan and Thorazine for agitation/aggression. -SW on board for discharge planning. Encouraged the patient to participate in milieu.
[2022-08-12] MEDS: AMITRIPTYLINE HCL 50 MG TAB PO SCH (20:28)
[2022-08-12] MEDS: ACETAMINOPHEN TAB 325 MG TAB PO PRN (22:40)
[2022-08-13] MEDS: hydrOXYzine pamoate 25 MG CAP PO PRN ×3 (03:14→17:40)
[2022-08-13] MEDS: ACETAMINOPHEN TAB 325 MG TAB PO PRN ×4 (03:14→20:17)
[2022-08-13] MEDS: GABAPENTIN 400 MG CAP PO SCH ×4 (08:30→20:15)
[2022-08-13] MEDS: OLANZapine 10 MG TAB PO SCH ×2 (08:30→20:19)
[2022-08-13] MEDS: AMITRIPTYLINE HCL 25 MG TAB PO SCH (20:16)
[2022-08-13] MEDS: AMITRIPTYLINE HCL 50 MG TAB PO SCH (20:16)
--- NOTE | 2022-08-13 20:27 | P.PN ---
Progress Note - Text Progress Note Date: 08/13/22 Interval History: Patient wandered into the interview room and requested to be restarted on Fioricet. Discussed that this provider will not be able to do so. He reports doing "okay" and denied other medication concerns. He is currently denying any suicidal or homicidal ideation, intention, and/or plan. He is not reporting any auditory or visual hallucinations. He denies any paranoia or other delusions. He reports some trouble sleeping and discussed increase in Elavil and was agreeable with this. Mental Status Exam: General Appearance: Patient appears to be stated age is alert, however not directable or cooperative. Behavior: Patient does not sit down during the interview and appears to be pacing the room. Normal psychomotor activity today. Speech: Patient's speech is normal in rate and volume. Monotone. Mood/Affect: Mood is "okay." Affect is intense Suicidality/Homicidality: Patient denies having any suicidal or homicidal ideation intent or plan. Perceptions: Patient denies any visual hallucinations and denies any auditory hallucinations Though content/process: Fixated on Fioricet. Memory and concentration: Grossly poor Judgment and insight: Poor Assessment Schizoaffective disorder, bipolar type Methamphetamine use disorder Cannabis use disorder Plan: -Patient continues to meet criteria for inpatient psychiatric admission for symptom stabilization and safety. The patient has been petitioned and certified. Patient deferred mental health court. -Anticipate discharge on Monday. -Medications: Discontinue Fioricet. DO NOT PRESCRIBE FIORICET. Zyprexa 10 mg by mouth twice a day for mood stabilization Increase Elavil to 125 mg by mouth at bedtime for migraine/anxiety Gabapentin 800 mg by mouth 4 times a day for anxiety -When necessary Ativan and Thorazine for agitation/aggression. -SW on board for discharge planning. Encouraged the patient to participate in milieu.
[2022-08-14] MEDS: hydrOXYzine pamoate 25 MG CAP PO PRN ×3 (00:05→18:42)
[2022-08-14] MEDS: ACETAMINOPHEN TAB 325 MG TAB PO PRN ×2 (00:06→18:41)
[2022-08-14] MEDS: OLANZapine 10 MG TAB PO SCH ×2 (08:44→21:26)
[2022-08-14] MEDS: GABAPENTIN 400 MG CAP PO SCH ×3 (08:44→18:42)
--- NOTE | 2022-08-14 14:28 | P.PN ---
Progress Note - Text Progress Note Date: 08/14/22 Interval History: Patient was found wandering the halls. He requests again to be restarted on Fioricet. Discussed that this provider will not be able to do so. He reports doing "okay" and denied other medication concerns. He is currently denying any suicidal or homicidal ideation, intention, and/or plan. He is not reporting any auditory or visual hallucinations. He denies any paranoia or other delusions. He reports tolerating the increase in Elavil well. He denies trouble with sleep. He denies concerns otherwise. He has been compliant with medications and denies side effects. Mental Status Exam: General Appearance: Patient appears to be stated age is alert, however not directable or cooperative. Behavior: Patient does not sit down during the interview and appears to be pacing the room. Normal psychomotor activity today. Speech: Patient's speech is normal in rate and volume. Monotone. Mood/Affect: Mood is "okay." Affect is intense Suicidality/Homicidality: Patient denies having any suicidal or homicidal ideation intent or plan. Perceptions: Patient denies any visual hallucinations and denies any auditory hallucinations Though content/process: Fixated on Fioricet. Memory and concentration: Grossly poor Judgment and insight: Poor Assessment Schizoaffective disorder, bipolar type Methamphetamine use disorder Cannabis use disorder Plan: -Patient continues to meet criteria for inpatient psychiatric admission for symptom stabilization and safety. The patient has been petitioned and certified. Patient deferred mental health court. -Anticipate discharge on Monday. -Medications: DO NOT PRESCRIBE FIORICET. Zyprexa 10 mg by mouth twice a day for mood stabilization Continue Elavil 125 mg by mouth at bedtime for migraine/anxiety Gabapentin 800 mg by mouth 4 times a day for anxiety -When necessary Ativan and Thorazine for agitation/aggression. -SW on board for discharge planning. Encouraged the patient to participate in milieu.
[2022-08-14] MEDS: AMITRIPTYLINE HCL 50 MG TAB PO SCH (21:26)
[2022-08-14] MEDS: AMITRIPTYLINE HCL 25 MG TAB PO SCH (21:26)
[2022-08-15] MEDS: hydrOXYzine pamoate 25 MG CAP PO PRN ×2 (02:34→08:04)
[2022-08-15] MEDS: GABAPENTIN 400 MG CAP PO SCH ×3 (02:34→12:06)
[2022-08-15] MEDS: ACETAMINOPHEN TAB 325 MG TAB PO PRN ×3 (02:36→12:07)
[2022-08-15 02:38] VITALS: BP 116/68; PULSE 116; TEMP 98.1
[2022-08-15] MEDS: OLANZapine 10 MG TAB PO SCH (08:04)
--- NOTE | 2022-08-15 11:23 | P.DS ---
Providers Date of admission: 08/06/22 17:10 Expected date of discharge: 08/15/22 Attending physician: Lincoln Cote MD Consults: 08/06/22 17:11 Consult Physician Routine Consulting Provider: [facility] Hospitalists Consult Reason/Comments: medicl management Do you want consulting provider notified?: Yes Primary care physician: Hiram Castillo - Discharge Diagnosis(es) (1) Schizoaffective disorder, bipolar type Current Visit: Yes Status: Acute Priority: High (2) Methamphetamine use disorder, moderate Current Visit: Yes Status: Chronic Priority: High (3) Prescription drug abuse Current Visit: Yes Status: Chronic Priority: Medium (4) Cannabis abuse Current Visit: Yes Status: Chronic Priority: Medium Hospital Course: Admission HPI: Initial psychiatric evaluation was completed by Dr. Garrett on 08/07/2022 who wrote: "Patient is a 32 year old homeless male with history of schizoaffective disorder-bipolar type, ESVIN, methamphetamine and cannabis use disorder, and noncompliance with treatment. HPI: Per chart, "Pt was brought in to the hospital on a petition by his mother. Pt was just discharged from [facility] on 07-26-22. When he was discharged he had no place to go. He rode a bus for hours. After awhile he got a motel room that he trashed. He called his mother who found he had ripped the sink of the wall and had debris all over the room. He admitted to his mother as she stated to me that he was not taking his medications. She also found out that he has been talking to others doctors and getting medication she doesn't know about and she is his coguardian. Pt does admit he is suicidal but denies all else." I attempted to evaluate patient twice today and each time he is dismissive and abruptly walks away after 1-2 minutes of observing him, and refuses assessment, states "I'm not fuckin' talkin' to you!". He appears overtly manic and psychotic, is aggressively pacing the unit, attending to internal stimuli and engaged in self-dialogue, is repeatedly swearing to himself and others, and at one point he appeared to hit himself. He appears disheveled, restless, guarded and paranoid. He was recently discharged from the mental health unit on 07/26/2022 on regimen of Gabapentin 800 mg 4 times daily, Vistaril 50 mg 4 times daily as needed, Zyprexa 10 mg at bedtime and Elavil 100 mg at bedtime, however he appears to have been noncompliant with these medications after discharge. Most of history below is taken from chart due to his lack of cooperation with evaluation. UDS completed on 08/06/22 is positive for tricyclic antidepressants, methamphetamines and THC. He has a long history of methamphetamine and cannabis abuse. Per chart, he was previously diagnosed with anxiety and schizophrenia disorder. The patient has had previous home medication regimens of Zyprexa, Vistaril, Gabapentin, Klonopin, Abilify, Prolixin, Invega, Risperdal, Geodon, Haldol, Artane, Saphris Ambien, Wellbutrin XL, Elavil. Patient has history of many p sychiatric admission, most recently discharged from [facility] on 07/26/22.. He is open with [facility] and the ACT team. No known history of history of suicide attempts." Hospital course: Upon admission to the unit patient was initially noted to be very irritable and uncooperative. He was noted to be an overtly manic and psychotic and was aggressively pacing the unit and is responding to internal stimuli and self dialogue. A second clinical certificate was filled out by the admitting provider. Furthermore, the patient was started on his Zyprexa, amitriptyline, and gabapentin. Over the course of the hospitalization,, the patient was constantly demanding medications that were abusable such as Fioricet or benzodiazepines. We discussed at length about the possible transition to long- acting injectable medication however the patient vehemently denied the need for this and was often irritable or agitated in regards to this. He ended up deferring mental health court. After significant discussion, it was determined that the patient has been actively abusing his prescribed medication of Fioricet as well as illicit substances such as methamphetamines. The patient has poor insight and judgment and is pre-contemplative in regards to his desire to quit any substance abuse. The patient was informed that his substance abuse contributes to his numerous times for re-admission. The patient sees nothing wrong with this as he prefers to be re-admitted every single time and states that he likes to come here "when he needs to." The patient is also been noted by his outpatient providers to be intermittently adherent with treatment. On the day of discharge, the patient is not reporting any suicidal or homicidal ideation, intention, and/or plan. He is not reporting any auditory or visual hallucinations. He denies any paranoia or other delusions. The patient has been adherent with his medication and is not endorsing any significant side effects. The patient continues to desire prescriptions for gabapentin and for Fioricet. Review of the maps reveals that he has an active prescription of gabapentin currently open. We will discontinue any Fioricet and recommend outpatient providers to do so as well. The patient was counseled great length on abstaining from all substances including alcohol, marijuana, and especially methamphetamines. The patient however appears to pre-contemplative. He denies any access to firearms other weapons. He was also counseled on importance of medication adherence and appropriate outpatient follow-up. As the patient wanted my criteria for inpatient psychiatric hospitalization, he was subsequently discharged. Mental status exam: General Appearance: Patient appears to be stated age is alert, pleasant, and cooperative. Patient is in no acute distress and has fair hygiene and grooming Behavior: Patient is calmly seated without any agitated behavior. Constantly paces the room. Speech: Patient's speech is fluent and nonpressured. Mood/Affect: Patient reports their mood is "I just need some Fioricet from my seizures", affect is constricted and euthymic Suicidality/Homicidality: Patient denies having any suicidal or homicidal ideation intent or plan. Perceptions: Patient denies any auditory or visual hallucinations. Though content/process: There is no evidence of any delusional thought content and thought process is linear and goal-directed. Patient is medication seeking. Memory and concentration: AOX3, grossly intact for the purposes of this session. Can spell "WORLD" backwards correctly. Judgment and insight: Improved with guarded prognosis Impression: Schizoaffective disorder, bipolar type Methamphetamine use disorder Cannabis use disorder Prescription drug abuse Plan: -Continue with discharge today as patient has improved and stabilized psychiatrically and is not currently an imminent threat to himself and/or others. Patient remain at chronically elevated risk due to his polysubstance abuse. -Continue medications: Elavil 1-25 mg by mouth at bedtime for migraine/depression/anxiety Zyprexa 10 mg by mouth twice a day for mood stabilization/psychosis Continue gabapentin in the outpatient setting. -Patient was counseled on the need for medication compliance and appropriate follow-up at mental health and also primary care for medical issues. Patient verbalized understanding and agreed. -Social work to arrange for and conduct family meeting to ensure safety upon discharge and answer any questions/concerns. Social work also to arrange for patients follow up appointments with [facility] for psychiatric care along with follow up with primary care provider. -Patient counseled on abstaining from recreational drugs and marijuana and alcohol. Was informed/educated on the adverse effects on their physical and mental health. Patient verbally agreed and understood. Patient was offered substance abuse treatment however declined at this time. -Patient was instructed to return to the hospital or seek immediate medical care if their psychiatric or medical symptoms do worsen or reoccur. -Psychoeducation and supportive therapy provided to patient. Risks and benefits of pharmacological treatment versus the risks and benefits of nontreatment weight and discussed. Informed consent discussion held. Common side effects of psychotropics discussed such as, but not limited to headache, GI disturbance, sexual dysfunction, movement disorders, sedation, and orthostatic hypotension. Life threatening and blackbox warnings of prescribed medications also discussed. Potential risks of operating a vehicle or heavy machinery discussed with patient at length. Advised on importance of compliance and a reliable and responsible manner. Patient advised to review FDA consumer labeling of all medications prior to taking. Patient verbalized understanding of potential risks, and agrees with current treatment plan. Patient advised to medically contact physician/emergency personnel if any acute changes in condition occur. Vital Signs Temp 98.1 F 08/15/22 02:36 Pulse 116 H 08/15/22 02:36 Resp 16 08/15/22 02:36 BP 116/68 08/15/22 02:36 Pulse Ox 98 08/15/22 02:36 FiO2 Laboratory Results Urine Color Yellow 08/06/22 14:00 Urine Appearance Clear (Clear) 08/06/22 14:00 Urine pH 6.5 (5.0-8.0) 08/06/22 14:00 Ur Specific [place] 1.036 (1.001-1.035) H 08/06/22 14:00 Urine Protein 1+ (Negative) H 08/06/22 14:00 Urine Glucose (UA) Negative (Negative) 08/06/22 14:00 Urine Ketones Negative (Negative) 08/06/22 14:00 Urine Blood Negative (Negative) 08/06/22 14:00 Urine Nitrite Negative (Negative) 08/06/22 14:00 Urine Bilirubin Negative (Negative) 08/06/22 14:00 Urine Urobilinogen 3.0 mg/dL (<2.0) 08/06/22 14:00 Ur Leukocyte Esterase Negative (Negative) 08/06/22 14:00 Urine RBC 3 /hpf (0-5) 08/06/22 14:00 Urine WBC 2 /hpf (0-5) 08/06/22 14:00 Ur Squamous Epith Cells 1 /hpf (0-4) 08/06/22 14:00 Urine Mucus Many /hpf (None) H 08/06/22 14:00 Urine Opiates Screen Not Detected (NotDetected) 08/06/22 14:00 Ur Oxycodone Screen Not Detected (NotDetected) 08/06/22 14:00 Urine Methadone Screen Not Detected (NotDetected) 08/06/22 14:00 Ur Propoxyphene Screen Not Detected (NotDetected) 08/06/22 14:00 Ur Barbiturates Screen Not Detected (NotDetected) 08/06/22 14:00 U Tricyclic Antidepress Detected (NotDetected) H 08/06/22 14:00 Ur Phencyclidine Scrn Not Detected (NotDetected) 08/06/22 14:00 Ur Amphetamines Screen Detected (NotDetected) H 08/06/22 14:00 U Methamphetamines Scrn Detected (NotDetected) H 08/06/22 14:00 U Benzodiazepines Scrn Not Detected (NotDetected) 08/06/22 14:00 Urine Cocaine Screen Not Detected (NotDetected) 08/06/22 14:00 U Marijuana (THC) Screen Detected (NotDetected) H 08/06/22 14:00 Coronavirus (PCR) Not Detected (Not Detectd) 08/06/22 16:19 Allergies Allergy/AdvReac Type Severity Reaction Status Date / Time aripiprazole [From Abilify] Allergy Unknown Verified 08/06/22 19:24 fluphenazine HCl Allergy Unknown Verified 08/06/22 19:24 [From Prolixin] paliperidone [From Invega] Allergy Unknown Verified 08/06/22 19:24 propoxyphene Allergy Unknown Verified 08/06/22 19:24 [From Darvocet-N] risperidone [From Risperdal] Allergy Unknown Verified 08/06/22 19:24 ziprasidone [From Geodon] Allergy Unknown Verified 08/06/22 19:24 fluphenazine enanthate AdvReac Severe Trismus Verified 08/06/22 19:24 [From Prolixin] haloperidol [From Haldol] AdvReac Unknown Verified 08/06/22 19:24 Patient Condition at Discharge: Stable Plan - Discharge Summary Discharge Rx Participant: Yes New Discharge Prescriptions: New Amitriptyline HCl [Elavil] 125 mg PO HS 30 Days tab OLANZapine [ZyPREXA] 10 mg PO BID 30 Days tab Continue Gabapentin 800 mg PO QID Discontinued OLANZapine [ZyPREXA] 10 mg PO HS 30 Days tab Butalb/APAP/Caff 50-325-40Mg [Fioricet 50-325-40] 1 tab PO Q6HR PRN 3 Days tab PRN Reason: Headache Amitriptyline HCl [Elavil] 100 mg PO HS 30 Days tab hydrOXYzine pamoate [hydrOXYzine PAMOATE] 25 mg PO QID PRN PRN Reason: Anxiety Discharge Medication List Gabapentin 800 mg PO QID 08/06/22 [History] Amitriptyline HCl [Elavil] 125 mg PO HS 30 Days tab 08/15/22 [Rx] OLANZapine [ZyPREXA] 10 mg PO BID 30 Days tab 08/15/22 [Rx] Follow up Appointment(s)/Referral(s): [facility] [Outside] - 08/25/22 11:00 am (08/25/2022 11:00AM - 11:30AM [facility] ) Anna Gandhi MD [Primary Care Provider] - 1-2 days Patient Instructions/Handouts: Schizoaffective Disorder (DC) Activity/Diet/Wound Care/Special Instructions: Avoid the use of street drugs and alcohol. Take all prescriptions as prescribed. When you are in need of refills on your medications, please contact your medical provider and/or outpatient psychiatrist to have this done. Please go to scheduled outpatient appointment for aftercare treatment. If symptoms return or become worse, call the crisis line at and/or go to the nearest emergency room for evaluation. Discharge Disposition: HOME SELF-CARE
== END 2022-08-15 14:12 | disposition home or self-care (01) | DRG 885 ==
LOC: EC 11:49 → 3MHU 17:10
PROVIDERS: ADMIT Psychiatry & Neurology Psychiatry; ATTEND Psychiatry & Neurology Psychiatry
DX: F25.0 Schizoaffective disorder, bipolar type (principal); R45.851 Suicidal ideations; F12.90 Cannabis use, unspecified, uncomplicated; F15.90 Other stimulant use, unspecified, uncomplicated; F41.0 Panic disorder [episodic paroxysmal anxiety]; G40.909 Epilepsy, unspecified, not intractable, without status epilepticus; S62.101A Fracture of unspecified carpal bone, right wrist, initial encounter for closed fracture; Z20.822 Contact with and (suspected) exposure to COVID-19; Z59.00 Homelessness unspecified; Z79.899 Other long term (current) drug therapy; Z87.891 Personal history of nicotine dependence; Z91.14 Patient's other noncompliance with medication regimen; Z91.199 Patient's noncompliance with other medical treatment and regimen due to unspecified reason; Z91.83 Wandering in diseases classified elsewhere
CPT/HCPCS: 80306; 81001; 82075; 87635; 99285

== ENCOUNTER 2022-08-15 18:55 | Emergency (ER) | payer MEDICARE, OTHER ==
[2022-08-15 19:22] VITALS: TEMP 98.2
--- NOTE | 2022-08-15 19:47 | ED ---
General Adult HPI - General Chief complaint: Psychiatric Symptoms Stated complaint: Mental health Time Seen by Provider: 08/15/22 19:26 Source: patient Mode of arrival: ambulatory Limitations: no limitations - History of Present Illness Initial comments: Dictation was produced using [employer] dictation software. please excuse any grammatical, word or spelling errors. Chief Complaint: 32-year-old male presents emergency room for suicidal ideation History of Present Illness: Patient is 32-year-old homeless male who was recently discharged from inpatient psychiatry today. Patient returns back to the emergency department because she still fully suicidal. He states that he tried to go to his mom's house however stepdad friend call the lumber stacker driver on it. Patient still feeling suicidal. Denies any homicidal ideation. Patient has no medical complaints. The ROS documented in this emergency department record has been reviewed and confirmed by me. Those systems with pertinent positive or negative responses have been documented in the HPI. All other systems are other negative and/or noncontributory. PHYSICAL EXAM: General Impression: Alert and oriented x3, not in acute distress HEENT: Normocephalic atraumatic, extra-ocular movements intact, pupils equal and reactive to light bilaterally, mucous membranes moist. Cardiovascular: Heart regular rate and rhythm Chest: Able to complete full sentences, no retractions, no tachypnea Musculoskeletal: Pulses present and equal in all extremities, no peripheral edema Motor: no focal deficits noted Neurological: CN II-XII grossly intact, no focal motor or sensory deficits noted Skin: Intact with no visualized rashes Psych: Normal affect and mood ED course: 32-year-old male presents to the emergency department for suicidal ideation. Patient is allegedly homeless. He is discharged from inpatient psychiatry earlier today. Vital signs upon arrival are within acceptable limits . Patient medically cleared for EPS evaluation. Patient evaluated by EPS. EPS has recommended discharge with outpatient follow-up. Patient stable medical condition. Patient will be discharged. Critical Care: no Critical Care time: n/a - Related Data Home Medications Medication Instructions Recorded Confirmed Gabapentin 800 mg PO QID 08/06/22 08/06/22 Previous Rx's Medication Instructions Recorded Amitriptyline HCl [Elavil] 125 mg PO HS 30 Days tab 08/15/22 OLANZapine [ZyPREXA] 10 mg PO BID 30 Days tab 08/15/22 Allergies Allergy/AdvReac Type Severity Reaction Status Date / Time aripiprazole [From Abilify] Allergy Unknown Verified 08/15/22 19:18 fluphenazine HCl Allergy Unknown Verified 08/15/22 19:18 [From Prolixin] paliperidone [From Invega] Allergy Unknown Verified 08/15/22 19:18 propoxyphene Allergy Unknown Verified 08/15/22 19:18 [From Darvocet-N] risperidone [From Risperdal] Allergy Unknown Verified 08/15/22 19:18 ziprasidone [From Geodon] Allergy Unknown Verified 08/15/22 19:18 fluphenazine enanthate AdvReac Severe Trismus Verified 08/15/22 19:18 [From Prolixin] haloperidol [From Haldol] AdvReac Unknown Verified 08/15/22 19:18 Review of Systems ROS Statement: Those systems with pertinent positive or pertinent negative responses have been documented in the HPI. ROS Other: All systems not noted in ROS Statement are negative. Past Medical History Past Medical History: Seizure Disorder Additional Past Medical History / Comment(s): Schizophrenia, right arm fracture, degenerative disc to lower back, and right wrist plate and screws History of Any Multi-Drug Resistant Organisms: None Reported Past Surgical History: Orthopedic Surgery Additional Past Surgical History / Comment(s): mouth surgery, reduction of right arm fracture. Past Anesthesia/Blood Transfusion Reactions: No Reported Reaction Past Psychological History: Anxiety, Panic Disorder, Schizophrenia Smoking Status: Former smoker Past Alcohol Use History: Rare Past Drug Use History: Marijuana, Methamphetamine - Past Family History Mother Brother(s) Family Medical History: Unable to Obtain General Exam Limitations: no limitations Course Vital Signs 08/15/22 19:18 Temperature 98.2 F Pulse Rate 76 Respiratory 16 Rate Blood Pressure 153/102 O2 Sat by Pulse 98 Oximetry Disposition Clinical Impression: Homeless Disposition: HOME SELF-CARE Condition: Good Instructions (If sedation given, give patient instructions): Help Prevent Suicide (ED) Is patient prescribed a controlled substance at d/c from ED?: No Referrals: Anna Gandhi MD [Primary Care Provider] - 1-2 days Time of Disposition: 20:08
[2022-08-15 20:48] VITALS: BP 146/92; PULSE 72; RESP 18
== END 2022-08-15 20:48 | disposition home or self-care (01) ==
LOC: EC 18:55
DX: F41.9 Anxiety disorder, unspecified (principal); Z59.00 Homelessness unspecified; F12.90 Cannabis use, unspecified, uncomplicated; Z87.891 Personal history of nicotine dependence; Z88.8 Allergy status to other drugs, medicaments and biological substances; Z88.7 Allergy status to serum and vaccine; Z88.5 Allergy status to narcotic agent
CPT/HCPCS: 99284

== ENCOUNTER 2022-08-25 10:49 | Inpatient (IN) | payer MEDICARE, MEDICAID ==
--- NOTE | 2022-08-25 11:26 | ED ---
General Adult HPI - General Chief complaint: Psychiatric Symptoms Stated complaint: mental health Time Seen by Provider: 08/25/22 11:06 Source: patient, police Mode of arrival: ambulatory Limitations: no limitations - History of Present Illness Initial comments: Dictation was produced using Funnel[employer] dictation software. please excuse any grammatical, word or spelling errors. Chief Complaint: 32-year-old male presents emergency Department with low enforcement for psychiatric evaluation History of Present Illness: Patient 32-year-old male well-known to emergency department for multiple valuations for psychiatric issues. He presents to the ER with enforcement. Allegedly there was a pickup order completed by [facility]. Patient admits feeling suicidal. Denies having a plan. Also reports that he is out of his medications. He continually requests to be refilled for his Neurontin and Fioricet. Patient is a poor historian. The ROS documented in this emergency department record has been reviewed and confirmed by me. Those systems with pertinent positive or negative responses have been documented in the HPI. All other systems are other negative and/or noncontributory. PHYSICAL EXAM: General Impression: Alert and oriented x3, not in acute distress HEENT: Kaycee Amada over the right anglican area with ecchymoses over the right periorbital area extra-ocular movements intact, pupils equal and reactive to light bilaterally, mucous membranes moist. Cardiovascular: Heart regular rate and rhythm Chest: Able to complete full sentences, no retractions, no tachypnea Abdomen: abdomen soft, non-tender, non-distended, no organomegaly Musculoskeletal: Pulses present and equal in all extremities, no peripheral mary ma Motor: no focal deficits noted Neurological: CN II-XII grossly intact, no focal motor or sensory deficits noted Skin: Intact with no visualized rashes Psych: Normal affect and mood ED course: 32-year-old male presents emergency department for psychiatric evaluation. Patient has physical exam findings to suggest head trauma. Vital signs upon arrival are within acceptable limits. Patient is not forthcoming with how he hurt his head. Nursing notes and chart review was performed - Related Data Home Medications Medication Instructions Recorded Confirmed Gabapentin 800 mg PO QID 08/06/22 08/27/22 Amitriptyline HCl [Elavil] 25 mg PO HS 08/25/22 08/27/22 Amitriptyline HCl [Elavil] 100 mg PO HS 08/25/22 08/27/22 Previous Rx's Medication Instructions Recorded OLANZapine [ZyPREXA] 10 mg PO BID 30 Days tab 08/15/22 Allergies Allergy/AdvReac Type Severity Reaction Status Date / Time aripiprazole [From Abilify] Allergy Unknown Verified 08/27/22 11:47 propoxyphene Allergy Unknown Verified 08/27/22 11:47 [From Darvocet-N] risperidone [From Risperdal] Allergy Unknown Verified 08/27/22 11:47 ziprasidone [From Geodon] Allergy Unknown Verified 08/27/22 11:47 fluphenazine enanthate AdvReac Severe Trismus Verified 08/27/22 11:47 [From Prolixin] fluphenazine HCl AdvReac Lockjaw Verified 08/27/22 11:47 [From Prolixin] haloperidol [From Haldol] AdvReac Unknown Verified 08/27/22 11:47 paliperidone [From Invega] AdvReac Panick Verified 08/27/22 11:47 Attacks Review of Systems ROS Statement: Those systems with pertinent positive or pertinent negative responses have been documented in the HPI. ROS Other: All systems not noted in ROS Statement are negative. Past Medical History Past Medical History: Seizure Disorder Additional Past Medical History / Comment(s): Schizophrenia, right arm fracture, degenerative disc to lower back, and right wrist plate and screws History of Any Multi-Drug Resistant Organisms: None Reported Past Surgical History: Orthopedic Surgery Additional Past Surgical History / Comment(s): mouth surgery, reduction of right arm fracture. Past Anesthesia/Blood Transfusion Reactions: No Reported Reaction Past Psychological History: Anxiety, Panic Disorder, Schizophrenia Smoking Status: Former smoker Past Alcohol Use History: Rare Past Drug Use History: Marijuana, Methamphetamine - Past Family History Mother Brother(s) Family Medical History: Unable to Obtain General Exam Limitations: no limitations Course Vital Signs 08/25/22 08/25/22 10:59 19:08 Temperature 98 F Pulse Rate 86 110 H Respiratory 18 18 Rate Blood Pressure 139/100 105/64 O2 Sat by Pulse 97 Oximetry Medical Decision Making - Medical Decision Making Patient's chart reviewed at a later date. Patient was admitted to mental health unit. - Lab Data Lab Results 08/25/22 Range/Units 22:46 Coronavirus (PCR) Not Detected (Not Detectd) Disposition Clinical Impression: Psychosis Disposition: ADMITTED IP TO THIS HOSP Condition: Fair
[2022-08-25] MEDS ORDERED: OLANZapine 10 MG VIAL IM STA (11:59)
[2022-08-25] MEDS ORDERED: LORazepam 2 MG/ML INJ IM STA (13:49)
--- NOTE | 2022-08-25 15:26 | CT ---
EXAMINATION TYPE: CT brain eusebio rizo DATE OF EXAM: 08/25/2022 COMPARISON: None HISTORY: right facial swelling CT DLP: 1133.[address] Brain: Unenhanced CT of the brain was performed. The ventricles, basal cisterns and sulci overlying the cerebral convexities demonstrate a normal appe arance. There is no evidence for intracranial hemorrhage or sulcal effacement. No mass effects are seen. If symptoms persist consider MRI. Osseous calvarium is intact. Large scalp hematoma right temporal region. IMPRESSION: No acute intracranial process CT Cervical Spine: Unenhanced CT of the cervical spine was performed with bone and soft tissue window settings submitted . Coronal and sagittal reconstruction is obtained. There is normal alignment and prevertebral soft tissues. I do not see evidence for fracture or sublu xation. No significant degenerative changes are present. The lung apices are clear. IMPRESSION: No evidence for acute fracture or subluxation of the cervical spine.
--- NOTE | 2022-08-25 15:33 | CT ---
EXAMINATION TYPE: CT facial bones wo con DATE OF EXAM: 08/25/2022 COMPARISON: HISTORY: right eye swelling CT DLP: 1133.[address] of the facial bones was performed in the axial and coronal planes. Bone and soft tissu e window settings are submitted. Right-sided facial swelling extending to the right temporal region. I do not see evidence for displaced facial bone fracture or depressed facial bone fracture. There a ppears to be anterior subluxation of the right mandibular condyle from its articular surface at the g lenoid fossa. Correlate clinically. The globes are intact. Paranasal sinuses are well-aerated. IMPRESSION: 1. No evidence for depressed or displaced facial bone fracture. 2. There appears to be anterior subluxation of the right mandibular condyle from its articular surfa ce at the glenoid fossa. Correlate clinically.
[2022-08-25 19:53] LABS: Amphetamine Screen,Urine Not Detected (NotDetected); Barbiturate Screen,Urine Not Detected (NotDetected); Benzodiazepines Screen,Urine Detected (NotDetected); Cocaine Screen,Urine Not Detected (NotDetected); Methadone Screen, Urine Not Detected (NotDetected); Opiate Screen,Urine Not Detected (NotDetected); Oxycodone Screen, Urine Not Detected (NotDetected); Phencyclidine Screen,Urine Not Detected (NotDetected); Tricyclic Antidepressant,Urine Detected (NotDetected); Urn Cannabinoid Scrn Not Detected (NotDetected)
[2022-08-25] MEDS ORDERED: MAG HYDROX/AL HYDROX/SIMETH 355 ML BOTTLE PO PRN (23:42)
[2022-08-25] MEDS ORDERED: MAGNESIUM HYDROXIDE 2,400 MG/10 ML CUP PO PRN (23:42)
[2022-08-25] MEDS ORDERED: chlorproMAZINE 25 MG/ML 2 ML AMP IM PRN (23:49)
[2022-08-25] MEDS ORDERED: hydrOXYzine HCL 50 MG/ML 1 ML VIAL IM PRN (23:49)
[2022-08-26] MEDS: hydrOXYzine pamoate 25 MG CAP PO PRN ×3 (01:34→17:29)
[2022-08-26] MEDS: ACETAMINOPHEN TAB 325 MG TAB PO PRN ×3 (01:35→17:30)
[2022-08-26] MEDS: NICOTINE 14MG/24HR PATCH TRANSDERM SCH (07:51)
[2022-08-26] MEDS ORDERED: OLANZapine 5 MG TAB PO SCH (09:00)
--- NOTE | 2022-08-26 11:15 | P.HP ---
Psychiatric H&P - . H&P Date: 08/26/22 History & Physical: Allergies Allergy/AdvReac Type Severity Reaction Status Date / Time aripiprazole [From Abilify] Allergy Unknown Verified 08/25/22 15:22 propoxyphene Allergy Unknown Verified 08/25/22 15:22 [From Darvocet-N] risperidone [From Risperdal] Allergy Unknown Verified 08/25/22 15:22 ziprasidone [From Geodon] Allergy Unknown Verified 08/25/22 15:22 fluphenazine enanthate AdvReac Severe Trismus Verified 08/25/22 15:22 [From Prolixin] fluphenazine HCl AdvReac Lockjaw Verified 08/25/22 15:22 [From Prolixin] haloperidol [From Haldol] AdvReac Unknown Verified 08/25/22 15:22 paliperidone [From Invega] AdvReac Panick Verified 08/25/22 15:22 Attacks Vital Signs Temp 97.7 F 08/26/22 01:42 Pulse 110 H 08/26/22 01:42 Resp 18 08/26/22 01:42 BP 136/93 08/26/22 01:42 Pulse Ox 98 08/26/22 01:42 FiO2 Intake & Output 08/25/22 08/26/22 08/26/22 18:59 06:59 18:59 Weight 80.739 kg 72.3 kg Laboratory Last Values Urine Opiates Screen Not Detected (NotDetected) 08/25/22 Unknown Ur Oxycodone Screen Not Detected (NotDetected) 08/25/22 Unknown Urine Methadone Screen Not Detected (NotDetected) 08/25/22 Unknown Ur Propoxyphene Screen Not Detected (NotDetected) 08/25/22 Unknown Ur Barbiturates Screen Not Detected (NotDetected) 08/25/22 Unknown U Tricyclic Antidepress Detected (NotDetected) H 08/25/22 Unknown Ur Phencyclidine Scrn Not Detected (NotDetected) 08/25/22 Unknown Ur Amphetamines Screen Not Detected (NotDetected) 08/25/22 Unknown U Methamphetamines Scrn Not Detected (NotDetected) 08/25/22 Unknown U Benzodiazepines Scrn Detected (NotDetected) H 08/25/22 Unknown Urine Cocaine Screen Not Detected (NotDetected) 08/25/22 Unknown U Marijuana (THC) Screen Not Detected (NotDetected) 08/25/22 Unknown Coronavirus (PCR) Not Detected (Not Detectd) 08/25/22 22:46 08/26/22 11:14 IDENTIFYING DATA: Patient is a 32 year old homeless male with history of schizoaffective disorder-bipolar type, ESVIN, methamphetamine and cannabis use disorder, and noncompliance with treatment. HPI: Per chart, "patient was brought in from [facility] via police for agitation and aggressive behavior while at [facility]." He was noted to be aggressive, uncooperative, and threatening toward staff. He has been refusing his Zyprexa. The patient maintains that he needed to be admitted to the psychiatric unit in order to "refill my seizure medications." The ACT team did speak with her EPS nurse who informed us that Tomas has been becoming more aggressive and refusing medications for the past 8 days. They filed the demand for court. ACT team believes that the patient is requiring a long-acting injectable medication. Upon assessment by this provider, the patient only states a few words repetitively. He constantly states that "I need Fioricet for seizures" when told that he would not receive this medication, he then asked for more Neurontin. He was informed that we will not use this medication as well. He would like to address his seizures, we are offering Depakote to which he is denying. The patient reports that "Depakote with medication and would cause more convulsions." He then states that he is going to jesus everybody including [employer], [facility], and this provider. He was informed of our intentions to transition him to a long-acting injectable medication. PAST PSYCHIATRIC HISTORY: Per chart, he was previously diagnosed with anxiety and schizophrenia disorder. The patient has had previous home medication regimens of Zyprexa, Vistaril, Gabapentin, Klonopin, Abilify, Prolixin, Invega, Risperdal, Geodon, Haldol, Artane, Saphris Ambien, Wellbutrin XL, Elavil. Patient has history of many psychiatric admission, most recently discharged from [facility] on 08/15/2022. He is open with [facility] and the ACT team. No known history of history of suicide attempts. PMH: Past Medical History: Seizure Disorder Additional Past Medical History / Comment(s): Schizophrenia, right arm fracture, degenerative disc to lower back, and right wrist plate and screws History of Any Multi-Drug Resistant Organisms: None Reported Past Surgical History: Orthopedic Surgery Additional Past Surgical History / Comment(s): mouth surgery, reduction of right arm fracture. Past Anesthesia/Blood Transfusion Reactions: No Reported Reaction Past Psychological History: Anxiety, Panic Disorder, Schizophrenia Smoking Status: Former smoker Past Alcohol Use History: Rare Past Drug Use History: Marijuana, Methamphetamine ALLERGIES: The patient lists multiple antipsychotics as ALLERGIES however it is unlikely that he is ALLERGIC to these medications. It is possible that he has had side effects of these medications. He is vehemently stating that he will not take any other antipsychotic aside from Zyprexa. CHEMICAL DEPENDENCY HISTORY: The patient tested positive for benzodiazepines and tricyclics. He does have a significant history of methamphetamine and marijuana use. FAMILY PSYCHIATRIC/SUBSTANCE USE HISTORY: Mother has reported psychiatric illness. SOCIAL HISTORY: Living in [facility], homeless. Has a guardian. MENTAL STATUS EXAM: General Appearance: Patient appears to be disheveled with poor hygiene and grooming. Behavior: He is aggressively pacing the unit, attending to internal stimuli and engaged in self-dialogue, is repeatedly swearing to himself Speech: Patient's speech is loud. Repetitive. Mood/Affect: Mood is "not good, I'm going to have seizures," affect is demanding and irritable. Suicidality/Homicidality: Patient does state that he is suicidal. Perceptions: He is overtly psychotic and responding to internal stimuli, engaged in self-dialogue. Thought process: Argumentative, Rambling profanities and engaged in self- dialogue Thought content: Rambling profanities and engaged in self-dialogue Memory and concentration: He is alert and oriented to person and place. Unable to fully assess due to his lack of cooperation. Judgment and insight: Very poor. STRENGTHS/WEAKNESSES: Strength is that patient is he is linked with ACT team. Weakness is that patient has poor judgment and is impulsive. INTELLECT: Estimated as average IMPRESSIONS: Schizoaffective disorder, bipolar type - manic, severe Methamphetamine use disorder Cannabis use disorder Noncompliance with treatment PLAN: -Patient is admitted under involuntary status to [facility] for stabilization of psychiatric symptoms and safety. A demand has been filed for court. -Medication: We will discontinue all his home medications at this time. The patient is nonadherent with his prescribed medication regimen. The patient has been also abusing Fioricet and likely Neurontin as well. We will start Risperdal 1 mg by mouth at bedtime to assess for tolerance of this medication and his perceived ALLERGY. The patient currently has a right to refuse medications and we may have to wait for court order. Start Depakote 1000 mg by mouth at bedtime for mood stabilization/patient's concerns for seizure -Ativan and Thorazine PRN for agitation/aggression -Substance abuse treatment for long history of methamphetamine abuse. the patient was consulted great length on abstaining from all substances including marijuana and methamphetamines. As provider attempted to educate the patient on methamphetamines and its ability to precipitate seizures. He is pre- contemplative. -Internal Medicine consult to perform medical evaluation and physical. -NRT - not needed -SW on board for discharge planning. Encourage patient to participate in groups to work on coping skills. Will await deferral and court date. 08/26/22 11:14
[2022-08-26] MEDS: DIVALPROEX ER 500 MG TAB.ER.24H PO SCH (20:17)
[2022-08-26] MEDS: risperiDONE ORAL SOLN 5 MG/5 ML CUP PO SCH (20:17)
--- NOTE | 2022-08-27 02:48 | CONS ---
CONSULTATION REASON FOR CONSULTATION: Advice regarding seizure and other medications requested by Psychiatry. HISTORY OF PRESENT ILLNESS: This is a 32-year-old gentleman with a past medical history of extensive psychiatric history, also had a history of seizure disorder. The patient is apparently seen by Dr. Faustin, Neurology for the last 7 years. The patient is on Neurontin and Fioricet p.r.n. according to him. There is no history of any fever, or rigors. No history of any headache, loss of consciousness, or seizures. PAST MEDICAL HISTORY: Reviewed, include multiple psych issues, seizure disorder. Rest of the history and chart is reviewed. HOME MEDICATIONS: Reviewed include Neurontin as well as Elavil, and rest of medications in the whole chart is reviewed. ALLERGIES: Reviewed include Abilify. FAMILY HISTORY: Unable to obtain. SOCIAL HISTORY: History of multiple substance abuses including THC, methamphetamine. REVIEW OF SYSTEMS: A 14-point review is negative except as mentioned earlier. PHYSICAL EXAMINATION: VITAL SIGNS: Pulse is 110, blood pressure 105/64, respirations 18. HEENT: Conjunctivae normal. NECK: No JVD. CARDIOVASCULAR: S1, S2 muffled. RESPIRATIONS: Breath sounds diminished at the bases. No rhonchi. No crackles. ABDOMEN: Soft, nontender. LEGS: No edema. JOINTS: No active deforming arthropathy. NERVOUS SYSTEM: Moves all 4 limbs. LABS: The drug screen is showing benzodiazepines and tricyclics anti-depressants. ASSESSMENT: 1. Schizophrenia. 2. Possible seizure disorder. 3. History of anxiety. 4. History of panic disorder. 5. History of nicotine dependence. 6. History of THC and methamphetamine. RECOMMENDATIONS AND DISCUSSION: This is a 32-year-old gentleman, who presented with multiple complex medical issues. Recommend resuming the Neurontin and p.r.n. Fioricet per Dr. Faustin because it has been ongoing for the last 7 years. I would recommend the staff nurse to contact Dr. Faustin's office and to confirm their current prescriptions. Otherwise, I will continue to monitor with you and we will be happy to review with any abnormal labs and I would also recommend a TSH. Thank you for letting us participate in this patient. Recommend to closely follow with Dr. Gandhi after discharge. MMODL / IJN: [id number] /
[2022-08-27] MEDS: hydrOXYzine pamoate 25 MG CAP PO PRN ×4 (05:27→22:45)
[2022-08-27] MEDS: NICOTINE 14MG/24HR PATCH TRANSDERM SCH (10:46)
--- NOTE | 2022-08-27 16:22 | P.PN ---
Progress Note - Text Progress Note Date: 08/27/22 Interval history: Patient was seen wandering the hallways pacing and attending to internal stimuli. He was seen again isolating to his room and on attempt to engage patient in assessment, he refuses assessment and closes the door to his room. He is overtly psychotic, suspicious and isolative. He is refusing his Depakote and Risperdal, but did take a PRN dose of hydroxyzine this morning for anxiety. Mental status exam: General Appearance: Patient appears to be stated age, is unkempt and disheveled. Behavior: Psychomotor agitation, pacing the unit, later isolates to his room and refuses assessment. Speech: Patient's speech is fluent and non-pressured. Mood/Affect: Mood is irritable, affect is congruent and constricted. Suicidality/Homicidality: Unable to fully assess due to lack of cooperation with assessment Perceptions: Unable to fully assess due to lack of cooperation with assessment, however he does appear to be attending to internal stimuli. Though content/process: Unable to fully assess due to lack of cooperation with assessment. Memory and concentration: Unable to fully assess due to lack of cooperation with assessment. Judgment and insight: Very poor Assessment/Plan: Continue with current diagnosis. Patient continues to meet criteria for inpat ient psychiatric admission for symptom stabilization and safety. He is refusing his scheduled Depakote ER 1000 mg QHS and Risperdal oral solution 1 mg QHS. He will require a court order for medication compliance. Monitor for medication compliance and for any psychotropic medication side effects. Will continue to monitor ongoing response to treatment. Encouraged participation in milieu.
[2022-08-27] MEDS: ACETAMINOPHEN TAB 325 MG TAB PO PRN ×2 (17:07→21:37)
[2022-08-27] MEDS: risperiDONE ORAL SOLN 5 MG/5 ML CUP PO SCH (19:58)
[2022-08-27] MEDS: DIVALPROEX ER 500 MG TAB.ER.24H PO SCH ×2 (19:58→23:20)
[2022-08-28] MEDS: ACETAMINOPHEN TAB 325 MG TAB PO PRN ×2 (06:08→21:24)
[2022-08-28] MEDS: hydrOXYzine pamoate 25 MG CAP PO PRN ×3 (06:08→21:24)
[2022-08-28] MEDS: NICOTINE 14MG/24HR PATCH TRANSDERM SCH (08:16)
[2022-08-28] MEDS: DIVALPROEX ER 500 MG TAB.ER.24H PO SCH ×2 (14:37→21:23)
--- NOTE | 2022-08-28 14:52 | P.PN ---
Progress Note - Text Progress Note Date: 08/28/22 Interval history: Patient was seen isolating to his room, sitting on the bed with the lights off and attending to internal stimuli. He is more willing to engage in assessment today however he is fixated on getting Ativan, Fioricet and Neurontin. He continues to be noncompliant with his Risperdal. He did agree to take on 500 mg Depakote ER last night. Today he agrees to take 500 mg BID of Depakote. He continues to be overtly psychotic, suspicious and isolative. He is taking PRN Vistaril 50 mg for anxiety, 2 doses so far today and 4 doses yesterday. Mental status exam: General Appearance: Patient appears to be stated age, is unkempt and disheveled, wearing dirty baggy clothes. Behavior: Psychomotor agitation, pacing the unit or isolates to his room Speech: Patient's speech is fluent and non-pressured. Mood/Affect: Mood is irritable, affect is congruent and constricted. Suicidality/Homicidality: He denies SI/HI, intent or plan Perceptions: He does appear to be attending to internal stimuli. Though content/process: Lafe, focused on self-medicating with Ativan, Fioricet and Neurontin Memory and concentration: Unable to fully assess due to lack of cooperation with assessment. Judgment and insight: Very poor Assessment/Plan: Continue with current diagnosis. Patient continues to meet criteria for inpatient psychiatric admission for symptom stabilization and safety. He is refusing his Risperdal oral solution 1 mg QHS. He is willing to take Depakote ER today and dose was changed from 1000 mg QHS to 500 mg BID for compliance. He will require a court order for medication compliance. Monitor for medication compliance and for any psychotropic medication side effects. Will continue to monitor ongoing response to treatment. Encouraged participation in milieu.
[2022-08-28] MEDS: risperiDONE ORAL SOLN 5 MG/5 ML CUP PO SCH (21:21)
[2022-08-29] MEDS: hydrOXYzine pamoate 25 MG CAP PO PRN ×3 (04:46→17:47)
[2022-08-29] MEDS: ACETAMINOPHEN TAB 325 MG TAB PO PRN ×3 (04:47→17:48)
[2022-08-29] MEDS: NICOTINE 14MG/24HR PATCH TRANSDERM SCH (09:56)
[2022-08-29] MEDS: DIVALPROEX ER 500 MG TAB.ER.24H PO SCH (09:56)
--- NOTE | 2022-08-29 11:27 | P.PN ---
Progress Note - Text Progress Note Date: 08/29/22 Interval History: Patient was seen resting in bed and was directable and agreeable to speak with automobile service writer in his room. The patient continues to maintain that he is experiencing seizures and that is why he needs his fioricet, neurontin, or ativan. He is requesting ativan today multiple times from this provider. He maintains he was experiencing seizures due to the zyprexa IM he received in the ED prior to his admission on the unit. He maintains he does not need any antipsychotic medication except for zyprexa and continues to maintain that he is adherent with zyprexa despite [facility] saying otherwise. He is scheduled for court on 09/07/2022. He reports that he is suing hazmat cdl a driver Baldev. Mental Status Exam: General Appearance: Patient appears to be stated age is alert, directable, and cooperative. Behavior: Patient is calmly lying down in bed without any agitated behavior. Speech: Patient's speech is fluent and nonpressured. Repetitive. Mood/Affect: Mood is "okay." Affect is blunted. Suicidality/Homicidality: Patient denies having any suicidal or homicidal ideation intent or plan. Perceptions: Patient denies any visual hallucinations and denies any auditory hallucinations Though content/process: Fixation on medication management. Constantly requesting neurontin, ativan, and fioricet. Memory and concentration: AOX3, grossly intact for the purposes of this session Judgment and insight: Poor Vital Signs Temp 98.0 F 08/27/22 23:46 Pulse 80 08/28/22 21:59 Resp 18 08/28/22 21:59 BP 104/59 08/28/22 21:59 Pulse Ox 98 08/28/22 21:59 FiO2 Assessment Schizoaffective disorder, bipolar type - manic, severe Methamphetamine use disorder Tobacco use disorder Cannabis use disorder Noncompliance with treatment Plan: -Patient continues to meet criteria for inpatient psychiatric admission for symptom stabilization and safety. Court scheduled for 09/07/2022. -Medications: Risperdal 1 mg at bedtime for schizoaffective disorder - May require court order for medication administration. Increase Depakote to 500 mg in the morning and 750 mg at bedtime for mood stabilization. -When necessary Vistaril and Thorazine for agitation/aggression. -NRT - nicotine patch -SW on board for discharge planning. Encouraged the patient to participate in milieu.
[2022-08-29] MEDS: chlorproMAZINE 25 MG TAB PO PRN (12:29)
[2022-08-29] MEDS: DIVALPROEX ER 250 MG TAB.ER.24H PO SCH (23:07)
[2022-08-29] MEDS: risperiDONE ORAL SOLN 5 MG/5 ML CUP PO SCH (23:07)
[2022-08-30] MEDS: hydrOXYzine pamoate 25 MG CAP PO PRN ×3 (07:46→20:25)
[2022-08-30] MEDS: ACETAMINOPHEN TAB 325 MG TAB PO PRN ×4 (07:46→20:25)
[2022-08-30] MEDS: chlorproMAZINE 25 MG TAB PO PRN ×3 (07:46→17:17)
[2022-08-30] MEDS: DIVALPROEX ER 500 MG TAB.ER.24H PO SCH (08:25)
[2022-08-30] MEDS: NICOTINE 14MG/24HR PATCH TRANSDERM SCH (08:26)
--- NOTE | 2022-08-30 11:16 | P.PN ---
Progress Note - Text Progress Note Date: 08/30/22 Interval History: Patient was seen wandering the hallways and was agreeable to speak with the song writer in the hallway briefly. He refused full psychiatric evaluation because this provider is not prescribing medications he wants. He continues to demand medications such as ativan, fioricet, and elavil. He was informed that we are opting to treat him with depakote and risperdal for schizoaffective disorder. He refuses any further conversation with this provider. He is noted to be calm on the milieu and interacting with peers. He did refuse depakote and risperdal yesterday and this morning. Mental Status Exam: General Appearance: Patient appears to be stated age is alert, but not directable or cooperative. Behavior: Patient is calming standing in the hallway. Speech: Patient's speech is minimal, short, and abrupt. Mood/Affect: Mood is "okay." Affect is blunted. Suicidality/Homicidality: Unable to assess. Perceptions: Unable to assess. Though content/process: Fixation on medication management. Requesting ativan, fioricet, and elavil. Memory and concentration: AOX3, grossly intact for the purposes of this session Judgment and insight: Poor Vital Signs Temp 97.5 F L 08/30/22 06:44 Pulse 101 H 08/30/22 06:44 Resp 14 08/30/22 06:44 BP 122/68 08/30/22 06:44 Pulse Ox 98 08/28/22 21:59 FiO2 Assessment Schizoaffective disorder, bipolar type - manic, severe Methamphetamine use disorder Tobacco use disorder Cannabis use disorder Noncompliance with treatment Plan: -Patient continues to meet criteria for inpatient psychiatric admission for symptom stabilization and safety. Court scheduled for 09/07/2022. -Medications: Risperdal 1 mg at bedtime for schizoaffective disorder - May require court order for medication administration. Continue Depakote 500 mg in the morning and 750 mg at bedtime for mood stabi lization. -When necessary Vistaril and Thorazine for agitation/aggression. -NRT - nicotine patch -SW on board for discharge planning. Encouraged the patient to participate in milieu.
[2022-08-30] MEDS: DIVALPROEX ER 250 MG TAB.ER.24H PO SCH (20:26)
[2022-08-30] MEDS: risperiDONE ORAL SOLN 5 MG/5 ML CUP PO SCH (20:58)
[2022-08-31] MEDS: chlorproMAZINE 25 MG TAB PO PRN ×3 (07:46→23:30)
[2022-08-31] MEDS: DIVALPROEX ER 500 MG TAB.ER.24H PO SCH (07:46)
[2022-08-31] MEDS: hydrOXYzine pamoate 25 MG CAP PO PRN ×3 (07:47→23:30)
[2022-08-31] MEDS: ACETAMINOPHEN TAB 325 MG TAB PO PRN ×3 (07:48→23:30)
--- NOTE | 2022-08-31 10:58 | P.PN ---
Progress Note - Text Progress Note Date: 08/31/22 Interval History: Patient was seen wandering the hallways and was agreeable to speak with the data analyst report writer in his room. Currently, the patient is not reporting any suicidal or homicidal ideation, intention, and he is not reporting any auditory or visual hallucinations. He is not reporting any paranoia or other delusions. He has been adherent with his Depakote however continues to refuse his Risperdal. Despite his objections against antipsychotic medications, the patient has been taking Thorazine as needed. The patient continues to be vehemently against being placed on long-acting injectable antipsychotics. We are currently awaiting a court hearing scheduled on 09/07/2022. Mental Status Exam: General Appearance: Patient appears to be stated age is alert, directable and cooperative. Behavior: Patient is calming lying down in bed. Speech: Patient's speech is minimal, short, and abrupt. Mood/Affect: Mood is "okay." Affect is blunted. Suicidality/Homicidality: Patient denies any suicidal or homicidal ideation. Perceptions: Patient denies any auditory or visual hallucinations. Though content/process: [place]. Linear and logical in short conversation. Memory and concentration: AOX3, grossly intact for the purposes of this session Judgment and insight: Fair Vital Signs Temp 97.9 F 08/31/22 07:43 Pulse 106 H 08/31/22 07:43 Resp 16 08/31/22 07:43 BP 121/80 08/31/22 07:43 Pulse Ox 96 08/31/22 07:43 FiO2 Assessment Schizoaffective disorder, bipolar type - manic, severe Methamphetamine use disorder Tobacco use disorder Cannabis use disorder Noncompliance with treatment Plan: -Patient continues to meet criteria for inpatient psychiatric admission for symptom stabilization and safety. Court scheduled for 09/07/2022. -Medications: Risperdal 1 mg at bedtime for schizoaffective disorder - May require court order for medication administration. Continue Depakote 500 mg in the morning and 750 mg at bedtime for mood stabilization. -When necessary Vistaril and Thorazine for agitation/aggression. -NRT - nicotine patch -SW on board for discharge planning. Encouraged the patient to participate in milieu.
[2022-08-31] MEDS: risperiDONE ORAL SOLN 5 MG/5 ML CUP PO SCH (20:34)
[2022-08-31] MEDS: DIVALPROEX ER 250 MG TAB.ER.24H PO SCH (23:29)
[2022-09-01] MEDS: DIVALPROEX ER 500 MG TAB.ER.24H PO SCH (08:34)
[2022-09-01] MEDS: hydrOXYzine pamoate 25 MG CAP PO PRN ×3 (08:36→20:22)
[2022-09-01] MEDS: ACETAMINOPHEN TAB 325 MG TAB PO PRN ×3 (08:37→23:12)
[2022-09-01] MEDS: chlorproMAZINE 25 MG TAB PO PRN ×3 (08:37→20:22)
--- NOTE | 2022-09-01 11:02 | P.PN ---
Progress Note - Text Progress Note Date: 09/01/22 Interval History: Patient was seen wandering the hallways and was seen speaking to himself. When approached by this provider, the patient refused to engage in the psychiatric interview. The patient just reported "not good." He has been observed by this provider as well as other staff to be speaking to himself in his room often discussing with himself his PRN medications. He has been intermittently adherent with his Depakote. He continues to pace the hallways and at times appears to respond to internal stimuli. We will reattempt to interview the patient again tomorrow. Mental Status Exam: General Appearance: Patient appears to be stated age is alert, however not directable or cooperative. Behavior: Patient is pacing the hallways. Speech: Patient's speech is minimal, short, and abrupt. Mood/Affect: Mood is "not good." Affect is blunted. Suicidality/Homicidality: Unable to assess today. Perceptions: Unable to assess today. Though content/process: Unable to assess today. Memory and concentration: Unable to assess today. Judgment and insight: Poor Vital Signs Temp 98.4 F 09/01/22 06:39 Pulse 106 H 08/31/22 07:43 Resp 14 09/01/22 06:39 BP 121/80 08/31/22 07:43 Pulse Ox 96 08/31/22 07:43 FiO2 Laboratory Results - Last 24 Hours 08/31/22 14:11 Coronavirus (PCR) Not Detected Assessment Schizoaffective disorder, bipolar type - manic, severe Methamphetamine use disorder Tobacco use disorder Cannabis use disorder Noncompliance with treatment Plan: -Patient continues to meet criteria for inpatient psychiatric admission for symptom stabilization and safety. Court scheduled for 09/07/2022. -Medications: Risperdal 1 mg at bedtime for schizoaffective disorder - May require court order for medication administration. Continue Depakote 500 mg in the morning and 750 mg at bedtime for mood stabilization. -When necessary Vistaril and Thorazine for agitation/aggression. -NRT - nicotine patch -SW on board for discharge planning. Encouraged the patient to participate in milieu.
[2022-09-01] MEDS: risperiDONE ORAL SOLN 5 MG/5 ML CUP PO SCH (20:23)
[2022-09-01] MEDS: DIVALPROEX ER 250 MG TAB.ER.24H PO SCH (20:23)
[2022-09-02] MEDS: hydrOXYzine pamoate 25 MG CAP PO PRN ×3 (08:32→20:55)
[2022-09-02] MEDS: chlorproMAZINE 25 MG TAB PO PRN ×2 (08:33→20:55)
[2022-09-02] MEDS: ACETAMINOPHEN TAB 325 MG TAB PO PRN ×2 (08:33→20:56)
[2022-09-02] MEDS: DIVALPROEX ER 500 MG TAB.ER.24H PO SCH (08:34)
--- NOTE | 2022-09-02 09:47 | P.PN ---
Progress Note - Text Progress Note Date: 09/02/22 Interval History: Patient was seen wandering the hallways and was seen speaking to himself. Patient continues to refuse full psychiatric evaluation. He reports that he is "good today." He continues to refuse any scheduled medications (risperdal and depakote). He does however take PRN medications such as thorazine and vistaril. Attempts to educate the patient on his nonadherence with treatment and the court process were met with futility. Patient maintains he will not take risperdal or any antipsychotic with long acting formulation. Mental Status Exam: General Appearance: Patient appears to be stated age is alert, however not directable or cooperative. Behavior: Patient is pacing the hallways. Observed speaking to himself. Speech: Patient's speech is minimal, short, and abrupt. Mood/Affect: Mood is "not good." Affect is blunted. Suicidality/Homicidality: Unable to assess today. Perceptions: Unable to assess today. Though content/process: Unable to assess today. Memory and concentration: Unable to assess today. Judgment and insight: Poor Vital Signs Temp 98.4 F 09/01/22 06:39 Pulse 106 H 08/31/22 07:43 Resp 14 09/01/22 06:39 BP 121/80 08/31/22 07:43 Pulse Ox 96 08/31/22 07:43 FiO2 Assessment Schizoaffective disorder, bipolar type - manic, severe Methamphetamine use disorder Tobacco use disorder Cannabis use disorder Noncompliance with treatment Plan: -Patient continues to meet criteria for inpatient psychiatric admission for symptom stabilization and safety. Court scheduled for 09/07/2022. -Medications: Risperdal 1 mg at bedtime for schizoaffective disorder - May require court order for medication administration. Depakote 500 mg in the morning and 750 mg at bedtime for mood stabilization. - Patient has been refusing this medication as well. -When necessary Vistaril and Thorazine for agitation/aggression. -NRT - nicotine patch -SW on board for discharge planning. Encouraged the patient to participate in milieu.
[2022-09-02] MEDS: DIVALPROEX ER 250 MG TAB.ER.24H PO SCH (21:12)
[2022-09-02] MEDS: risperiDONE ORAL SOLN 5 MG/5 ML CUP PO SCH (21:12)
[2022-09-03] MEDS: chlorproMAZINE 25 MG TAB PO PRN ×3 (06:56→21:04)
[2022-09-03] MEDS: hydrOXYzine pamoate 25 MG CAP PO PRN ×3 (06:57→21:04)
[2022-09-03] MEDS: ACETAMINOPHEN TAB 325 MG TAB PO PRN ×3 (06:57→21:04)
[2022-09-03] MEDS: DIVALPROEX ER 500 MG TAB.ER.24H PO SCH (08:17)
--- NOTE | 2022-09-03 18:57 | P.PN ---
Progress Note - Text Progress Note Date: 09/03/22 Interval history: Patient was seen isolating to his room again today, sitting on the bed in the dark and attending to internal stimuli. His insight remains poor and he continues to ask for Fioricet. He continues to be noncompliant with his scheduled Risperdal and Depakote, but he did take two doses each of PRN Thorazine and Hydroxyzine earlier today. He continues to be overtly psychotic, suspicious and isolative. Mental status exam: General Appearance: Patient appears to be stated age, is unkempt and disheveled, wearing dirty baggy clothes. Behavior: Psychomotor agitation, pacing the unit or isolates to his room Speech: Patient's speech is fluent and non-pressured, with low tone. Mood/Affect: Mood is irritable, affect is congruent and constricted. Suicidality/Homicidality: He denies SI/HI, intent or plan Perceptions: He does appear to be attending to internal stimuli. Though content/process: [place], focused on self-medicating with Fioricet Memory and concentration: Unable to fully assess due to lack of cooperation Judgment and insight: Very poor Assessment/Plan: Continue with current diagnosis. Patient continues to meet criteria for inpatient psychiatric admission for symptom stabilization and safety. He is refusing his Risperdal and Depakote. He will require a court order for medication compliance. Court is scheduled for 09/07/2022. Monitor for medication compliance and for any psychotropic medication side effects. Will continue to monitor ongoing response to treatment. Encouraged participation in milieu.
[2022-09-03] MEDS: risperiDONE ORAL SOLN 5 MG/5 ML CUP PO SCH (21:06)
[2022-09-03] MEDS: DIVALPROEX ER 250 MG TAB.ER.24H PO SCH (21:06)
[2022-09-04] MEDS: ACETAMINOPHEN TAB 325 MG TAB PO PRN ×3 (04:40→19:45)
[2022-09-04] MEDS: chlorproMAZINE 25 MG TAB PO PRN ×3 (08:21→21:32)
[2022-09-04] MEDS: hydrOXYzine pamoate 25 MG CAP PO PRN ×3 (08:21→21:32)
[2022-09-04] MEDS: DIVALPROEX ER 500 MG TAB.ER.24H PO SCH (08:50)
--- NOTE | 2022-09-04 19:14 | P.PN ---
Progress Note - Text Progress Note Date: 09/04/22 Interval history: Patient was seen isolating to his room again today, laying down on the bed in the dark. His insight remains poor and he continues seek medications such as Neurontin. He continues to be noncompliant with his scheduled Risperdal and Depakote, but he did take two doses each of PRN Thorazine and Hydroxyzine so far today. His thought process is improving on the Thorazine and his thought content is more coherent, however his insight remains poor and he continues to be an unreliable historian. He denies auditory or visual hallucinations when asked today, but is observed to attend to internal stimuli on multiple occasions today. Nurse note states patient was observed yelling loudly at unseen stimuli earlier this morning and saying "do it I dare you" and responding to unseen stimuli. He remains focused on medications, and continues to refuse his scheduled medications. Mental status exam: General Appearance: Patient appears to be stated age, is unkempt and disheveled, wearing baggy clothes. Behavior: Calm, withdrawn, isolates to his room. Speech: Patient's speech is fluent and non-pressured, with low tone. Mood/Affect: Mood is irritable, affect is congruent and constricted. Suicidality/Homicidality: He denies SI/HI, intent or plan Perceptions: He does appear to be attending to internal stimuli. Though content/process: [place], focused on self-medicating with Neurontin Memory and concentration: He is an unreliable historian. Judgment and insight: Very poor Assessment/Plan: Continue with current diagnosis. Patient continues to meet criteria for inpatient psychiatric admission for symptom stabilization and safety. He is refusing his Risperdal and Depakote. He will require a court order for medication compliance. Court is scheduled for 09/07/2022. Monitor for medication compliance and for any psychotropic medication side effects. Will continue to monitor ongoing response to treatment. Encouraged participation in milieu.
[2022-09-04] MEDS: DIVALPROEX ER 250 MG TAB.ER.24H PO SCH (20:36)
[2022-09-04] MEDS: risperiDONE ORAL SOLN 5 MG/5 ML CUP PO SCH (20:36)
[2022-09-05] MEDS: hydrOXYzine pamoate 25 MG CAP PO PRN ×2 (07:46→16:23)
[2022-09-05] MEDS: ACETAMINOPHEN TAB 325 MG TAB PO PRN ×3 (07:46→20:59)
[2022-09-05] MEDS: DIVALPROEX ER 500 MG TAB.ER.24H PO SCH (08:13)
[2022-09-05 09:41] VITALS: BMI 23.2
--- NOTE | 2022-09-05 10:47 | P.PN ---
Progress Note - Text Progress Note Date: 09/05/22 Interval History: Patient was seen wandering the hallways and was seen speaking to himself. Patient was agreeable to speak with the typewriter mechanic in the office. He denies suicidal or homicidal ideation. He denies any auditory or visual hallucinations. The patient maintains that he does not need to take any medication aside from thorazine or zyprexa. He expresses he needs to be back on his medications for "seizures." He indicates that these medications are gabapentin and fioricet. It was again explained to him that we have prescribed depakote but he states that this medication is not "good enough and is a terrible antipsychotic." He expresses he would like to be back on zyprexa. When informed he is here in the unit because of his nonadherence with zyprexa he maintains he stopped the medication because he was not getting his medication for his "seizures" (fioricet and gabapentin) by [facility]. When informed we would like him on a long acting antipsychotic, the patient becomes very agitated and terminates the interview, slamming the door to the office and stating he would call the tractor expert. Mental Status Exam: General Appearance: Patient appears to be stated age is alert, disheveled. Not cooperative. Behavior: Patient continues to speak to himself, responds to internal stimuli. Refuses to sit down during the interview. Paces the room. Speech: Patient's speech is rapid, hyperverbal and pressured. Refuses to let the provider speak. Mood/Affect: Mood is "I need something for my seizures." Affect is irritable. Suicidality/Homicidality: Denies SI or HI. Perceptions: Denies AH or VH. Though content/process: Fixated on controlled medications. [place]. Memory and concentration: Grossly poor. Judgment and insight: Very poor. Vital Signs Temp 98.1 F 09/04/22 05:40 Pulse 107 H 09/04/22 05:40 Resp 18 09/04/22 05:40 BP 136/66 09/04/22 05:40 Pulse Ox 96 08/31/22 07:43 FiO2 Intake & Output 09/04/22 09/05/22 09/05/22 18:59 06:59 18:59 Weight 73.4 kg 73.4 kg Assessment Schizoaffective disorder, bipolar type - manic, severe Methamphetamine use disorder Tobacco use disorder Cannabis use disorder Noncompliance with treatment Plan: -Patient continues to meet criteria for inpatient psychiatric admission for symptom stabilization and safety. Court scheduled for 09/07/2022. -Awaiting court for medications. -Medications: - Patient has been refusing. Risperdal 1 mg at bedtime for schizoaffective disorder Depakote 500 mg in the morning and 750 mg at bedtime for mood stabilization. -When necessary Vistaril and Thorazine for agitation/aggression. -NRT - nicotine patch -SW on board for discharge planning. Encouraged the patient to participate in milieu.
[2022-09-05] MEDS: chlorproMAZINE 25 MG TAB PO PRN (20:59)
[2022-09-05] MEDS: DIVALPROEX ER 250 MG TAB.ER.24H PO SCH (21:02)
[2022-09-05] MEDS: risperiDONE ORAL SOLN 5 MG/5 ML CUP PO SCH (21:02)
[2022-09-06] MEDS: ACETAMINOPHEN TAB 325 MG TAB PO PRN ×3 (00:05→11:53)
[2022-09-06] MEDS: hydrOXYzine pamoate 25 MG CAP PO PRN ×3 (00:05→19:36)
[2022-09-06] MEDS: DIVALPROEX ER 500 MG TAB.ER.24H PO SCH (08:51)
--- NOTE | 2022-09-06 11:40 | P.PN ---
Progress Note - Text Progress Note Date: 09/06/22 Interval History: Patient was seen wandering the hallways and was agreeable to speak in his room. He was informed that court is scheduled for tomorrow. He maintains that he does not need court because he received a "long acting IM medication in the ED with the Zyprexa." He was informed that that medication was not long acting and was used for agitation. He states if he is to be started on an antipsychotic that is long acting he would call the citrus fruit colorer. He then terminates the interview. Mental Status Exam: General Appearance: Patient appears to be stated age is alert, disheveled. Not cooperative. Behavior: Patient is noted to speak to himself in the milieu. Refuses to sit down during the interview. Paces the room. Speech: Patient's speech is rapid, hyperverbal and pressured. Mood/Affect: Mood is "I will call the citrus fruit colorer if you give me medication." Affect is irritable. Suicidality/Homicidality: Unable to assess today. Perceptions:Unable to assess today. Though content/process: Fixated on medication management. Memory and concentration: Unable to assess today. Judgment and insight: Very poor. Vital Signs Temp 97.1 F L 09/05/22 05:00 Pulse 76 09/05/22 05:00 Resp 16 09/05/22 05:00 BP 113/78 09/05/22 05:00 Pulse Ox 97 09/05/22 05:00 FiO2 Intake & Output 09/05/22 09/06/22 09/06/22 18:59 06:59 18:59 Weight 73.4 kg Assessment Schizoaffective disorder, bipolar type Methamphetamine use disorder Tobacco use disorder Cannabis use disorder Noncompliance with treatment Plan: -Patient continues to meet criteria for inpatient psychiatric admission for symptom stabilization and safety. Court scheduled for 09/07/2022. -Awaiting court for medications. -Medications: - Patient has been refusing his ordered medications. Risperdal 1 mg at bedtime for schizoaffective disorder Depakote 500 mg in the morning and 750 mg at bedtime for mood stabilization. -When necessary Vistaril and Thorazine for agitation/aggression. -NRT - nicotine patch -SW on board for discharge planning. Encouraged the patient to participate in milieu.
[2022-09-06] MEDS: chlorproMAZINE 25 MG TAB PO PRN ×2 (11:52→19:36)
[2022-09-06] MEDS: DIVALPROEX ER 250 MG TAB.ER.24H PO SCH (19:36)
[2022-09-06] MEDS: risperiDONE ORAL SOLN 5 MG/5 ML CUP PO SCH (19:44)
[2022-09-07] MEDS: chlorproMAZINE 25 MG TAB PO PRN ×2 (08:20→16:18)
[2022-09-07] MEDS: hydrOXYzine pamoate 25 MG CAP PO PRN ×2 (08:21→16:18)
[2022-09-07] MEDS: DIVALPROEX ER 500 MG TAB.ER.24H PO SCH (08:22)
[2022-09-07] MEDS: ACETAMINOPHEN TAB 325 MG TAB PO PRN ×3 (11:46→19:58)
--- NOTE | 2022-09-07 12:02 | P.PN ---
Progress Note - Text Progress Note Date: 09/07/22 Interval History: Patient was seen wandering the hallways and was agreeable to speak in his room. Patient continues to refuse to acknowledge any medication changes or take his prescribed medications. He maintains that the zyprexa he received in the ED counts as a long acting injectible. Attempts to educate him are met with futility as he refuses to listen to this provider. The patient refused to attend court. He states he will call the customer service advisor and shut down payloader machine operator Baldev and the psychiatric unit if he is given medications. Mental Status Exam: Grossly unchanged from yesterday. General Appearance: Patient appears to be stated age is alert, disheveled. Not cooperative. Behavior: Patient is noted to speak to himself in the milieu. Refuses to sit down during the interview. Paces the room. Speech: Patient's speech is rapid, hyperverbal and pressured. Mood/Affect: Mood is "I will call the customer service advisor if you give me medication." Affect is irritable. Suicidality/Homicidality: Unable to assess today. Perceptions:Unable to assess today. Though content/process: Fixated on medication management. Memory and concentration: Unable to assess today. Judgment and insight: Very poor. Vital Signs Temp 97.1 F L 09/05/22 05:00 Pulse 76 09/05/22 05:00 Resp 16 09/05/22 05:00 BP 113/78 09/05/22 05:00 Pulse Ox 97 09/05/22 05:00 FiO2 Assessment Schizoaffective disorder, bipolar type Methamphetamine use disorder Tobacco use disorder Cannabis use disorder Noncompliance with treatment Plan: -Patient continues to meet criteria for inpatient psychiatric admission for symptom stabilization and safety. Patient had court today. He refused to attend. Once court order is received, we will begin to administer medications as needed if he refuses oral medication. -Awaiting court for medications. -Medications: Risperdal 1 mg at bedtime for schizoaffective disorder. If patient refuses we will administer Haldol 5 mg IM and Benadryl 50 mg IM once we receive court order paperwork. Depakote 500 mg in the morning and 750 mg at bedtime for mood stabilization. -When necessary Vistaril and Thorazine for agitation/aggression. -NRT - nicotine patch -SW on board for discharge planning. Encouraged the patient to participate in milieu.
[2022-09-07] MEDS: risperiDONE ORAL SOLN 5 MG/5 ML CUP PO SCH (19:58)
[2022-09-07] MEDS: diphenhydrAMINE 50 MG CAP PO SCH (19:58)
[2022-09-07] MEDS: DIVALPROEX ER 250 MG TAB.ER.24H PO SCH (20:00)
[2022-09-08] MEDS: ACETAMINOPHEN TAB 325 MG TAB PO PRN ×4 (06:10→23:21)
[2022-09-08] MEDS: hydrOXYzine pamoate 25 MG CAP PO PRN ×3 (06:10→23:21)
[2022-09-08] MEDS: DIVALPROEX ER 500 MG TAB.ER.24H PO SCH (07:54)
[2022-09-08 07:55] VITALS: BP 107/67; PULSE 110; RESP 20; TEMP 97.6
[2022-09-08] MEDS ORDERED: HALOPERIDOL LACTATE 5 MG/ML 1 ML VIAL IM PRN (09:00)
[2022-09-08] MEDS ORDERED: diphenhydrAMINE 50 MG/ML 1 ML VIAL IM PRN (09:00)
--- NOTE | 2022-09-08 11:22 | P.PN ---
Progress Note - Text Progress Note Date: 09/08/22 Interval History: Patient was seen wandering the hallways however refused to speak with this provider. He did take his oral Risperdal yesterday. He has been noted by staff to be much more calm and cooperative on approach however refuses to speak with this provider. He is currently court ordered for medications. No abnormal or concerning reactions to the medication has been noted despite his perceived ALLERGY to Risperdal.. Mental Status Exam: Grossly unchanged from yesterday. General Appearance: Patient appears to be stated age is alert, disheveled. Not cooperative. Behavior: Patient is noted to pace the hallways. Speech: Patient's speech is short and abrupt. Mood/Affect: Mood is "I'm good today." Affect is blunted. Suicidality/Homicidality: Unable to assess today. Perceptions:Unable to assess today. Though content/process: Unable to assess today. Memory and concentration: Unable to assess today. Judgment and insight: Very poor. Vital Signs Temp 97.6 F 09/08/22 05:00 Pulse 110 H 09/08/22 05:00 Resp 20 09/08/22 05:00 BP 107/67 09/08/22 05:00 Pulse Ox 97 09/05/22 05:00 FiO2 Assessment Schizoaffective disorder, bipolar type Methamphetamine use disorder Tobacco use disorder Cannabis use disorder Noncompliance with treatment Plan: -Patient continues to meet criteria for inpatient psychiatric admission for symptom stabilization and safety. Patient had court today. Patient is now court ordered for medications. -Awaiting court for medications. -Medications: Increase Risperdal to 2 mg at bedtime for schizoaffective disorder. If patient refuses we will administer Haldol 5 mg IM and Benadryl 50 mg IM once we receive court order paperwork. Depakote 500 mg in the morning and 750 mg at bedtime for mood stabilization. - Patient has been refusing this medication. -When necessary Vistaril and Thorazine for agitation/aggression. -NRT - nicotine patch -SW on board for discharge planning. Encouraged the patient to participate in milieu.
[2022-09-08] MEDS: chlorproMAZINE 25 MG TAB PO PRN (18:05)
[2022-09-08] MEDS ORDERED: risperiDONE ORAL SOLN 5 MG/5 ML CUP PO SCH (21:00)
[2022-09-08] MEDS: diphenhydrAMINE 50 MG CAP PO SCH (21:43)
[2022-09-08] MEDS: DIVALPROEX ER 250 MG TAB.ER.24H PO SCH (21:44)
[2022-09-09] MEDS: DIVALPROEX ER 500 MG TAB.ER.24H PO SCH (09:39)
[2022-09-09] MEDS ORDERED: HALOPERIDOL LACTATE 5 MG/ML 1 ML VIAL IM PRN (10:57)
--- NOTE | 2022-09-09 11:37 | P.PN ---
Progress Note - Text Progress Note Date: 09/09/22 Interval History: Patient was seen wandering the hallways and was agreeable to speak with this provider in his room. The patient has been adherent with his Risperdal. He states that the Risperdal is "not helping." However, the patient is not reporting any adverse effects or reactions to the medication. He states that he has been on this medication before and has been injecting multiple times before in the past and that has helped. He is however not endorsing any anaphylaxis, rashes, or "seizures." He expresses that he is very upset and if he was to receive a long-acting injectable medication, he would call the travel assistant. He was informed that since he is under court order our plan is to administer long- acting medication prior to his discharge. The patient then terminates the interview. Mental Status Exam: Grossly unchanged from yesterday. General Appearance: Patient appears to be stated age is alert, disheveled. Not cooperative. Behavior: Patient is noted to pace the hallways. He is constant pacing his room. Speech: Patient's speech is short and abrupt. Mood/Affect: Mood is "the medication does not help." Affect is irritable Suicidality/Homicidality: Unable to assess today. Perceptions:Unable to assess today. Though content/process: Unable to assess today. Memory and concentration: Unable to assess today. Judgment and insight: Very poor. Vital Signs Temp 97.6 F 09/08/22 05:00 Pulse 110 H 09/08/22 05:00 Resp 20 09/08/22 05:00 BP 107/67 09/08/22 05:00 Pulse Ox 97 09/05/22 05:00 FiO2 Assessment Schizoaffective disorder, bipolar type Methamphetamine use disorder Tobacco use disorder Cannabis use disorder Noncompliance with treatment Plan: -Patient continues to meet criteria for inpatient psychiatric admission for symptom stabilization and safety. Patient had court today. Patient is now court ordered for medications. -Awaiting court for medications. -Medications: Increase Risperdal to 2 mg twice daily for schizoaffective disorder. If patient refuses we will administer Haldol 5 mg IM and Benadryl 50 mg IM. Depakote 500 mg in the morning and 750 mg at bedtime for mood stabilization. - Patient has been refusing this medication. -We will administer Risperdal perseris on monday in anticipation of discharge monday. -When necessary Vistaril and Thorazine for agitation/aggression. -NRT - nicotine patch -SW on board for discharge planning. Encouraged the patient to participate in milieu.
[2022-09-09] MEDS: hydrOXYzine pamoate 25 MG CAP PO PRN (19:09)
[2022-09-09] MEDS: ACETAMINOPHEN TAB 325 MG TAB PO PRN (19:09)
[2022-09-09] MEDS: diphenhydrAMINE 50 MG CAP PO SCH (21:07)
[2022-09-09] MEDS: risperiDONE ORAL SOLN 5 MG/5 ML CUP PO SCH (21:07)
[2022-09-09] MEDS: DIVALPROEX ER 250 MG TAB.ER.24H PO SCH (21:07)
[2022-09-10] MEDS: ACETAMINOPHEN TAB 325 MG TAB PO PRN (05:13)
[2022-09-10] MEDS: risperiDONE ORAL SOLN 5 MG/5 ML CUP PO SCH ×2 (09:58→22:32)
[2022-09-10] MEDS: DIVALPROEX ER 500 MG TAB.ER.24H PO SCH (09:59)
--- NOTE | 2022-09-10 15:18 | P.PN ---
Progress Note - Text Progress Note Date: 09/10/22 Interval History: Patient was seen wandering the hallways and was somewhat agreeable to speak with this provider in his room. He is irritable on presentation and is standing instead of being seated in the interview room. The patient has been adherent with his Risperdal and Depakote. He states that the Risperdal is "not helping." However, the patient is not reporting any adverse effects or reactions to the medication. However, he states that he is being given medications and that "nobody is listening to me". He demands to be on Fioricet. Although he states that he does not like Risperdal, he denies side effects including seizures. He previously expressed that he is very upset and if he was to receive a long- acting injectable medication, he would call the machine repair person. He is scheduled for Perseris on Monday given patient is on court order. Mental Status Exam: Grossly unchanged from yesterday. General Appearance: Patient appears to be stated age is alert, disheveled. Not cooperative. Behavior: Patient is noted to pace the hallways. He is constant pacing his room. Speech: Patient's speech is short and abrupt. Mood/Affect: Mood is "the medication does not help." Affect is irritable Suicidality/Homicidality: Unable to assess today. Perceptions: Suspicious of medication Though content/process: Denies AVH but is fixated on Fioricet Memory and concentration: Grossly intact to interview Judgment and insight: Nil Assessment Schizoaffective disorder, bipolar type Methamphetamine use disorder Tobacco use disorder Cannabis use disorder Plan: -Patient continues to meet criteria for inpatient psychiatric admission for symptom stabilization and safety. Patient had court today. Patient is now court ordered for medications. -Medications: Continue Risperdal to 2 mg twice daily for schizoaffective disorder. If patient refuses we will administer Haldol 5 mg IM and Benadryl 50 mg IM. Depakote 500 mg in the morning and 750 mg at bedtime for mood stabilization. -We will administer Risperdal perseris on monday in anticipation of discharge monday. -When necessary Vistaril and Thorazine for agitation/aggression. -NRT - nicotine patch -SW on board for discharge planning. Encouraged the patient to participate in milieu.
[2022-09-10] MEDS: DIVALPROEX ER 250 MG TAB.ER.24H PO SCH (22:31)
[2022-09-10] MEDS: diphenhydrAMINE 50 MG CAP PO SCH (22:32)
[2022-09-11] MEDS ORDERED: risperiDONE 120 MG SYR (NO COST) PHARMACY STOCK SQ ONE (10:00)
[2022-09-11] MEDS: risperiDONE ORAL SOLN 5 MG/5 ML CUP PO SCH (10:37)
[2022-09-11] MEDS: DIVALPROEX ER 500 MG TAB.ER.24H PO SCH (10:37)
[2022-09-11] MEDS: hydrOXYzine pamoate 25 MG CAP PO PRN (12:16)
--- NOTE | 2022-09-11 15:36 | P.PN ---
Progress Note - Text Progress Note Date: 09/11/22 Interval History: Patient was seen in the interview room today following refusal of Risperdal Perseris. He is irritable on presentation and is standing instead of being seated in the interview room. He states that he does not want to be on Risperdal because it worsens auditory hallucinations. However, patient has been compliant with this and denies having auditory hallucinations. He states that he prefers Zyprexa but does not want to be on any long-acting medications. He appears to be afraid of needles. He was provided reassurance by multiple staff members. However, the patient is not reporting any adverse effects or reactions to the medication. He denies side effects including seizures. While discussing that he will need to be on a long-acting injectable, patient stated that he would call the nuclear control operator. When it was discussed that he is on a court order, patient said that the circuit judge in unfair. Patient displays poor insight into his mental illness and lack of compliance with medication which has led to rehospitalization. After receiving Vistaril 25 mg PO for anxiety and much support provided by staff, he accepted the Risperdal Perseris with security present nearby. Mental Status Exam: Grossly unchanged from yesterday. General Appearance: Patient appears to be stated age is alert, disheveled. Not cooperative. Behavior: Patient is noted to pace the hallways. Speech: Patient's speech is short and abrupt. Mood/Affect: Mood is irritable. Affect is mood congruent Suicidality/Homicidality: Denies SI and HI Perceptions: Suspicious of medication. Though content/process: Denies AVH Memory and concentration: Poor concentration during interview Judgment and insight: Nil Assessment Schizoaffective disorder, bipolar type Methamphetamine use disorder Tobacco use disorder Cannabis use disorder Plan: -Patient continues to meet criteria for inpatient psychiatric admission for symptom stabilization and safety. Patient had court today. Patient is now court ordered for medications. -Medications: Will discontinue Risperdal 2 mg twice daily for schizoaffective disorder as patient received Risperdal perseris 120 mg Q4W on 09/11/22 Depakote 500 mg in the morning and 750 mg at bedtime for mood stabilization. -When necessary Vistaril and Thorazine for agitation/aggression. -NRT - nicotine patch -SW on board for discharge planning. Encouraged the patient to participate in milieu.
[2022-09-11] MEDS: DIVALPROEX ER 250 MG TAB.ER.24H PO SCH (19:54)
[2022-09-11] MEDS: diphenhydrAMINE 50 MG CAP PO SCH (19:54)
[2022-09-11] MEDS: chlorproMAZINE 25 MG TAB PO PRN (19:55)
[2022-09-12] MEDS: chlorproMAZINE 25 MG TAB PO PRN (08:35)
[2022-09-12] MEDS: hydrOXYzine pamoate 25 MG CAP PO PRN (08:35)
[2022-09-12] MEDS: DIVALPROEX ER 500 MG TAB.ER.24H PO SCH (08:35)
--- NOTE | 2022-09-12 12:23 | P.DS ---
Providers Date of admission: 08/25/22 23:33 Expected date of discharge: 09/12/22 Attending physician: Lincoln Cote MD Consults: 08/25/22 23:42 Consult Physician Routine Consulting Provider: Adela Mendosa Consult Reason/Comments: H&P and medical management Do you want consulting provider notified?: Yes, Notify in am Primary care physician: Hiram Castillo - Discharge Diagnosis(es) (1) Schizoaffective disorder, bipolar type Current Visit: Yes Status: Acute Priority: High (2) Poor compliance with medication Current Visit: Yes Status: Chronic Priority: Medium (3) Nicotine dependence Current Visit: Yes Status: Acute Priority: Low (4) Methamphetamine abuse Current Visit: No Status: Suspected Priority: Medium Hospital Course: Admission HPI: Patient is a 32 year old homeless male with history of schizoaffective disorder- bipolar type, ESVIN, methamphetamine and cannabis use disorder, and noncompliance with treatment. Per chart, "patient was brought in from [facility] via police for agitation and aggressive behavior while at [facility]." He was noted to be aggressive, uncooperative, and threatening toward staff. He has been refusing his Zyprexa. The patient maintains that he needed to be admitted to the psychiatric unit in order to "refill my seizure medications." The ACT team did speak with her EPS nurse who informed us that Tomas has been becoming more aggressive and refusing medications for the past 8 days. They filed the demand for court. ACT team believes that the patient is requiring a long-acting injectable medication. Upon assessment by this provider, the patient only states a few words repetitively. He constantly states that "I need Fioricet for seizures" when told that he would not receive this medication, he then asked for more Neurontin . He was informed that we will not use this medication as well. He would like to address his seizures, we are offering Depakote to which he is denying. The patient reports that "Depakote with medication and would cause more convulsions." He then states that he is going to jesus everybody including Lamp Re[employer]acer Baldev, [facility], and this provider. He was informed of our intentions to transition him to a long-acting injectable medication. Per chart, he was previously diagnosed with anxiety and schizophrenia disorder. The patient has had previous home medication regimens of Zyprexa, Vistaril, Gabapentin, Klonopin, Abilify, Prolixin, Invega, Risperdal, Geodon, Haldol, Artane, Saphris Ambien, Wellbutrin XL, Elavil. Patient has history of many psychiatric admission, most recently discharged from [facility] on 08/15/2022. He is open with [facility] and the ACT team. No known history of history of suicide attempts. Hospital course: Upon admission to the unit patient was initially presenting as irritable, unc ooperative, and refused to engage in conversation with this provider. Patient was petitioned and certified for mental health treatment due to his psychotic symptoms and his unwillingness to cooperate with treatment. The patient was strongly fixated on his medication management for "seizures." He spent the initial week of admission constantly asking for controlled medications such as Fioricet, Ativan, Klonopin, or gabapentin. The patient was informed that he was admitted due to his nonadherence with treatment, in particular with his antipsychotics. The patient vehemently denies that he was not adherent with his Zyprexa and refused to listen to reason despite multiple attempts by [facility] and this provider to educate him on his nonadherence with treatment. Patient was placed on a court order on 09/07/2022 for mental health treatment. He refused to participate in court despite multiple attempts to have him present. He was constantly noted by staff and this provider to engage in self talk, response internal stimuli, and have very irritable and agitated outbursts. Furthermore, he constantly threatened that he was going to jesus [employer] and call the fire claims adjuster on everybody. Once court ordered, the patient was scheduled to receive Risperdal and if he was to review refused the Risperdal, he was to be administered Haldol. The patient was adherent with his court ordered Risperdal. Despite his initial protests and fears of ALLERGIES, the patient displayed no significant adverse reaction to the medication. His Risperdal was gradually titrated to final dose of 2 mg twice daily and the patient was transitioned to Risperdal perseris on 09/11/2022. On the day of discharge, the patient is not reporting any suicidal or homicidal ideation, intention, and/or plan. He is not reporting any auditory or visual hallucinations. He denies any paranoia or other delusions. The patient continues to maintain that he only needed Zyprexa and would likely try to get back on Zyprexa only. He was informed that he is court ordered for treatment in that if he violates his court order they would bring him back to the hospital. He continues to be fixated on receiving controlled substances in order to address his "seizures." He was informed that he is prescribed Depakote for mood and is also on antiseizure medication. It should be noted that the patient has not had any seizure activity that has been documented despite his constant complaints of seizure. It should also be noted that the patient has been off any antiseizure medication throughout this hospitalization and also displayed no significant symptoms a seizure. He does not report any medical issues or concerns on the day of discharge and is denying any chest pain, shortness of breath, palpitations, or any "seizures." As a patient on longer met criteria for continued inpatient psychiatric hospital admission, he was subsequently discharged. Mental status exam: General Appearance: Patient appears to be stated age is alert, and cooperative. Patient is in no acute distress and has slightly disheveled hygiene and grooming at baseline Behavior: Patient continues to pace the hallways however does not appear to eng age in self talk. He is not presenting with any response to internal stimuli. Speech: Patient's speech is fluent and nonpressured. Mood/Affect: Patient reports their mood is "ready to go", affect is congruent and blunted. Suicidality/Homicidality: Patient denies having any suicidal or homicidal ideation intent or plan. Perceptions: Patient denies any auditory or visual hallucinations. Though content/process: There is no evidence of any delusional thought content and thought process is linear and goal-directed. Memory and concentration: AOX3, grossly intact for the purposes of this session. Can spell "WORLD" backwards correctly. Judgment and insight: Improved with guarded prognosis Impression: Schizoaffective disorder, bipolar type Methamphetamine use disorder Tobacco use disorder Cannabis use disorder Noncompliance with treatment Plan: -Continue with discharge today as patient has improved and stabilized psychiatrically and is not currently an imminent threat to himself and/or others. Patient will remain at chronically elevated risk for harm to self and/or others due to his impulsivity, substance abuse, and nonadherence with treatment. -Continue medications: Depakote 500 mg by mouth every morning and 750 mg daily at bedtime for mood stabilization - patient is not likely to be adherent with any oral medications. This is why we opted for long-acting injectable medications due to his history of nonadherence with treatment. Risperdal Perseris 120 mg SQ every 28 days. Last dose administered on 09/11/2022. Next dose due on 10/09/2021. -Patient was counseled on the need for medication compliance and appropriate follow-up at mental health and also primary care for medical issues. Patient verbalized understanding and agreed. -Social work to arrange for and conduct family meeting to ensure safety upon discharge and answer any questions/concerns. Social work also to arrange for patients follow up appointments with [facility] for psychiatric care along with follow up with primary care provider. -Patient counseled on abstaining from recreational drugs and marijuana and alcohol. Was informed/educated on the adverse effects on their physical and mental health. Patient is pre-contemplative. -Patient was instructed to return to the hospital or seek immediate medical care if their psychiatric or medical symptoms do worsen or reoccur. -Psychoeducation and supportive therapy provided to patient. Risks and benefits of pharmacological treatment versus the risks and benefits of nontreatment weight and discussed. Informed consent discussion held. Common side effects of psychotropics discussed such as, but not limited to headache, GI disturbance, sexual dysfunction, movement disorders, sedation, and orthostatic hypotension. Life threatening and blackbox warnings of prescribed medications also discussed. Potential risks of operating a vehicle or heavy machinery discussed with patient at length. Advised on importance of compliance and a reliable and responsible manner. Patient advised to review FDA consumer labeling of all medications prior to taking. Patient verbalized understanding of potential risks, and agrees with current treatment plan. Patient advised to medically contact physician/emergency personnel if any acute changes in condition occur. Vital Signs Temp 97.6 F 09/08/22 05:00 Pulse 110 H 09/08/22 05:00 Resp 20 09/08/22 05:00 BP 107/67 09/08/22 05:00 Pulse Ox 97 09/05/22 05:00 FiO2 Laboratory Results Urine Opiates Screen Not Detected (NotDetected) 08/25/22 Unknown Ur Oxycodone Screen Not Detected (NotDetected) 08/25/22 Unknown Urine Methadone Screen Not Detected (NotDetected) 08/25/22 Unknown Ur Propoxyphene Screen Not Detected (NotDetected) 08/25/22 Unknown Ur Barbiturates Screen Not Detected (NotDetected) 08/25/22 Unknown U Tricyclic Antidepress Detected (NotDetected) H 08/25/22 Unknown Ur Phencyclidine Scrn Not Detected (NotDetected) 08/25/22 Unknown Ur Amphetamines Screen Not Detected (NotDetected) 08/25/22 Unknown U Methamphetamines Scrn Not Detected (NotDetected) 08/25/22 Unknown U Benzodiazepines Scrn Detected (NotDetected) H 08/25/22 Unknown Urine Cocaine Screen Not Detected (NotDetected) 08/25/22 Unknown U Marijuana (THC) Screen Not Detected (NotDetected) 08/25/22 Unknown Coronavirus (PCR) Not Detected (Not Detectd) 09/02/22 12:50 Allergies Allergy/AdvReac Type Severity Reaction Status Date / Time aripiprazole [From Abilify] Allergy Unknown Verified 08/27/22 11:47 propoxyphene Allergy Unknown Verified 08/27/22 11:47 [From Darvocet-N] ziprasidone [From Geodon] Allergy Unknown Verified 08/27/22 11:47 fluphenazine enanthate AdvReac Severe Trismus Verified 08/27/22 11:47 [From Prolixin] fluphenazine HCl AdvReac [place]aw Verified 08/27/22 11:47 [From Prolixin] Patient Condition at Discharge: Stable Plan - Discharge Summary Discharge Rx Participant: Yes New Discharge Prescriptions: New Divalproex ER [Depakote ER] 750 mg PO HS 15 Days tab Divalproex ER [Depakote ER] 500 mg PO DAILY 15 Days tab risperiDONE ER inj [Perseris] 120 mg SQ Q28D #1 each Discontinued Gabapentin 800 mg PO QID Amitriptyline HCl [Elavil] 100 mg PO HS Amitriptyline HCl [Elavil] 25 mg PO HS OLANZapine [ZyPREXA] 10 mg PO BID 30 Days tab Discharge Medication List Divalproex ER [Depakote ER] 500 mg PO DAILY 15 Days tab 09/12/22 [Rx] Divalproex ER [Depakote ER] 750 mg PO HS 15 Days tab 09/12/22 [Rx] risperiDONE ER inj [Perseris] 120 mg SQ Q28D #1 each 09/12/22 [Rx] Follow up Appointment(s)/Referral(s): [facility] [Outside] - 09/12/22 1:00 pm (1:00 with ACT team today 09-15-22 at 12:30 with HEAD OF [employer] Candace Medeiros) Anna Gandhi MD [Primary Care Provider] - 1-2 days Patient Instructions/Handouts: How to Stop Smoking (DC), Schizophrenia (DC), Cannabis Abuse (DC) Activity/Diet/Wound Care/Special Instructions: Avoid the use of street drugs and alcohol. Take all prescriptions as prescribed. When you are in need of refills on your medications, please contact your medical provider and/or outpatient psychiatrist to have this done. Please go to scheduled outpatient appointment for aftercare treatment. If symptoms return or become worse, call the crisis line at and/or go to the nearest emergency room for evaluation Discharge Disposition: HOME SELF-CARE
== END 2022-09-12 15:35 | disposition home or self-care (01) | DRG 885 ==
LOC: EC 10:49 → 3MHU 23:33
PROVIDERS: ADMIT Psychiatry & Neurology Psychiatry; ATTEND Psychiatry & Neurology Psychiatry
DX: F25.0 Schizoaffective disorder, bipolar type (principal); R45.851 Suicidal ideations; F12.90 Cannabis use, unspecified, uncomplicated; F15.90 Other stimulant use, unspecified, uncomplicated; F17.200 Nicotine dependence, unspecified, uncomplicated; F41.0 Panic disorder [episodic paroxysmal anxiety]; G40.909 Epilepsy, unspecified, not intractable, without status epilepticus; S00.11XA Contusion of right eyelid and periocular area, initial encounter; Z59.00 Homelessness unspecified; Z79.899 Other long term (current) drug therapy; Z91.14 Patient's other noncompliance with medication regimen; Z91.199 Patient's noncompliance with other medical treatment and regimen due to unspecified reason; Z20.822 Contact with and (suspected) exposure to COVID-19
CPT/HCPCS: 70450; 70486; 72125; 80306; 82075; 87635; 96372; 99285

== ENCOUNTER 2022-09-14 16:41 | Emergency (ER) | payer MEDICARE, OTHER ==
[2022-09-14 16:47] VITALS: BP 129/77; PULSE 89; RESP 16; TEMP 98.4
--- NOTE | 2022-09-14 17:50 | ED ---
General Adult HPI - General Chief complaint: Psychiatric Symptoms Stated complaint: anxiety Time Seen by Provider: 09/14/22 17:28 Source: RN notes reviewed Mode of arrival: ambulatory - History of Present Illness Initial comments: Patient is a 32-year-old male who reportedly came to the emergency department looking for medication adjustment. Patient was visualize walking to the restroom to change into a gown. Patient reportedly eloped. Further history and exam is not available. - Related Data Previous Rx's Medication Instructions Recorded Divalproex ER [Depakote ER] 500 mg PO DAILY 15 Days tab 09/12/22 Divalproex ER [Depakote ER] 750 mg PO HS 15 Days tab 09/12/22 risperiDONE ER inj [Perseris] 120 mg SQ Q28D #1 each 09/12/22 Allergies Allergy/AdvReac Type Severity Reaction Status Date / Time aripiprazole [From Abilify] Allergy Unknown Verified 08/27/22 11:47 propoxyphene Allergy Unknown Verified 08/27/22 11:47 [From Darvocet-N] risperidone [From Risperdal] Allergy Hallucinati Verified 09/14/22 16:48 ons ziprasidone [From Geodon] Allergy Unknown Verified 08/27/22 11:47 fluphenazine enanthate AdvReac Severe Trismus Verified 08/27/22 11:47 [From Prolixin] fluphenazine HCl AdvReac [place]jaw Verified 08/27/22 11:47 [From Prolixin] Review of Systems ROS Statement: Those systems with pertinent positive or pertinent negative responses have been documented in the HPI. ROS Other: All systems not noted in ROS Statement are negative. Past Medical History Past Medical History: Seizure Disorder Additional Past Medical History / Comment(s): Schizophrenia, right arm fracture, degenerative disc to lower back, and right wrist plate and screws History of Any Multi-Drug Resistant Organisms: None Reported Past Surgical History: Orthopedic Surgery Additional Past Surgical History / Comment(s): mouth surgery, reduction of right arm fracture. Past Anesthesia/Blood Transfusion Reactions: No Reported Reaction Past Psychological History: Anxiety, Panic Disorder, Schizophrenia Smoking Status: Former smoker Past Alcohol Use History: Rare Past Drug Use History: Marijuana, Methamphetamine - Past Family History Mother Brother(s) Family Medical History: Unable to Obtain General Exam General appearance: alert, in no apparent distress Neurological exam: Present: normal gait Course Vital Signs 09/14/22 16:44 Temperature 98.4 F Pulse Rate 89 Respiratory 16 Rate Blood Pressure 129/77 O2 Sat by Pulse 100 Oximetry Disposition Clinical Impression: Mental health assessment declined Disposition: Left Against Medical Advice Is patient prescribed a controlled substance at d/c from ED?: No Referrals: Anna Gandhi MD [Primary Care Provider] - 1-2 days Time of Disposition: 17:50
== END 2022-09-14 18:00 | disposition left against medical advice (07) ==
LOC: EC 16:41
DX: Z53.20 Procedure and treatment not carried out because of patient's decision for unspecified reasons (principal); G40.909 Epilepsy, unspecified, not intractable, without status epilepticus; F41.9 Anxiety disorder, unspecified; F12.90 Cannabis use, unspecified, uncomplicated; F15.10 Other stimulant abuse, uncomplicated; Z87.891 Personal history of nicotine dependence; Z88.5 Allergy status to narcotic agent; Z88.7 Allergy status to serum and vaccine; Z88.8 Allergy status to other drugs, medicaments and biological substances; Z53.29 Procedure and treatment not carried out because of patient's decision for other reasons
CPT/HCPCS: 99284

== ENCOUNTER 2022-10-04 08:56 | Emergency (ER) | payer MEDICARE, OTHER ==
[2022-10-04 09:00] VITALS: BP 136/90; PULSE 82; RESP 18; TEMP 98
--- NOTE | 2022-10-04 09:22 | ED ---
General Adult HPI - General Chief complaint: Psychiatric Symptoms Stated complaint: mental health Time Seen by Provider: 10/04/22 09:00 Source: patient Mode of arrival: ambulatory Limitations: no limitations - History of Present Illness Initial comments: Dictation was produced using [employer] dictation software. please excuse any grammatical, word or spelling errors. Chief Complaint: 32-year-old male brought in to emergency department for psychiatric evaluation due to noncompliance with outpatient psych treatment History of Present Illness: She is a 32-year-old male. He states is here today because he doesn't like his current psychiatric drug regimen. 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 He did not show up to one of his outpatient appointments where he was supposed to receive an IM injection of psychiatric medications. Patient denies any suicidal or homicidal ideation. Denies any delusions. Patient denies any medical complaints. The ROS documented in this emergency department record has been reviewed and confirmed by me. Those systems with pertinent positive or negative responses have been documented in the HPI. All other systems are other negative and/or noncontributory. PHYSICAL EXAM: General Impression: Alert and oriented x3, not in acute distress HEENT: Normocephalic atraumatic, extra-ocular movements intact, pupils equal and reactive to light bilaterally, mucous membranes moist. Cardiovascular: Heart regular rate and rhythm Chest: Able to complete full sentences, no retractions, no tachypnea Musculoskeletal: Pulses present and equal in all extremities, no peripheral edema Motor: no focal deficits noted Neurological: CN II-XII grossly intact, no focal motor or sensory deficits noted Skin: Intact with no visualized rashes Psych: Tangential speech ED course: 32-year-old male presents emergency department for psychiatric evaluation. Vital Signs upon arrival are within acceptable limits. Nursing notes and chart review was performed Patient medically cleared for EPS evaluation Patient vital EPS recommended discharge with outpatient management. - Related Data Home Medications Medication Instructions Recorded Confirmed Divalproex ER [Depakote ER] 500 mg PO DIRECTED 10/04/22 10/04/22 Divalproex ER [Depakote ER] 750 mg PO DIRECTED 10/04/22 10/04/22 Previous Rx's Medication Instructions Recorded risperiDONE ER inj [Perseris] 120 mg SQ Q28D #1 each 09/12/22 Allergies Allergy/AdvReac Type Severity Reaction Status Date / Time aripiprazole [From Abilify] Allergy Unknown Verified 10/04/22 11:10 propoxyphene Allergy Unknown Verified 10/04/22 11:10 [From Darvocet-N] risperidone [From Risperdal] Allergy Hallucinati Verified 10/04/22 11:10 ons ziprasidone [From Geodon] Allergy Unknown Verified 10/04/22 11:10 fluphenazine enanthate AdvReac Severe Trismus Verified 10/04/22 11:10 [From Prolixin] fluphenazine HCl AdvReac [place]aw Verified 10/04/22 11:10 [From Prolixin] Review of Systems ROS Statement: Those systems with pertinent positive or pertinent negative responses have been documented in the HPI. ROS Other: All systems not noted in ROS Statement are negative. Past Medical History Past Medical History: Seizure Disorder Additional Past Medical History / Comment(s): Schizophrenia, right arm fracture, degenerative disc to lower back, and right wrist plate and screws History of Any Multi-Drug Resistant Organisms: None Reported Past Surgical History: Orthopedic Surgery Additional Past Surgical History / Comment(s): mouth surgery, reduction of right arm fracture. Past Anesthesia/Blood Transfusion Reactions: No Reported Reaction Past Psychological History: Anxiety, Panic Disorder, Schizophrenia Smoking Status: Former smoker Past Alcohol Use History: Rare Past Drug Use History: Marijuana, Methamphetamine - Past Family History Mother Brother(s) Family Medical History: Unable to Obtain General Exam Limitations: no limitations Course Vital Signs 10/04/22 08:57 Temperature 98 F Pulse Rate 82 Respiratory 18 Rate Blood Pressure 136/90 O2 Sat by Pulse 100 Oximetry Medical Decision Making - Lab Data Lab Results 10/04/22 Range/Units 09:40 Urine Opiates Screen Not Detected (NotDetected) Ur Oxycodone Screen Not Detected (NotDetected) Urine Methadone Screen Not Detected (NotDetected) Ur Propoxyphene Screen Not Detected (NotDetected) Ur Barbiturates Screen Not Detected (NotDetected) U Tricyclic Antidepress Not Detected (NotDetected) Ur Phencyclidine Scrn Not Detected (NotDetected) Ur Amphetamines Screen Not Detected (NotDetected) U Methamphetamines Scrn Not Detected (NotDetected) U Benzodiazepines Scrn Not Detected (NotDetected) Urine Cocaine Screen Not Detected (NotDetected) U Marijuana (THC) Screen Not Detected (NotDetected) Disposition Clinical Impression: Psychiatric complaint Disposition: HOME SELF-CARE Condition: Fair Instructions (If sedation given, give patient instructions): Medical Clearance for Psychiatric Care (ED) Is patient prescribed a controlled substance at d/c from ED?: No Referrals: Anna Gandhi MD [Primary Care Provider] - 1-2 days Time of Disposition: 12:10
[2022-10-04 10:18] LABS: Amphetamine Screen,Urine Not Detected (NotDetected); Barbiturate Screen,Urine Not Detected (NotDetected); Benzodiazepines Screen,Urine Not Detected (NotDetected); Cocaine Screen,Urine Not Detected (NotDetected); Methadone Screen, Urine Not Detected (NotDetected); Opiate Screen,Urine Not Detected (NotDetected); Oxycodone Screen, Urine Not Detected (NotDetected); Phencyclidine Screen,Urine Not Detected (NotDetected); Tricyclic Antidepressant,Urine Not Detected (NotDetected); Urn Cannabinoid Scrn Not Detected (NotDetected)
== END 2022-10-04 15:32 | disposition home or self-care (01) ==
LOC: EC 08:56
DX: F99 Mental disorder, not otherwise specified (principal); F41.9 Anxiety disorder, unspecified; F12.90 Cannabis use, unspecified, uncomplicated; Z87.891 Personal history of nicotine dependence; Z88.8 Allergy status to other drugs, medicaments and biological substances
CPT/HCPCS: 80306; 82075; 99285

== ENCOUNTER 2022-10-13 11:52 | Emergency (ER) | payer MEDICARE, OTHER ==
[2022-10-13 12:07] VITALS: BP 117/85; PULSE 91; RESP 16; TEMP 98
--- NOTE | 2022-10-13 12:21 | ED ---
Psych HPI <Grant Stark - Last Filed: 10/13/22 14:30> - General Source: patient, police ([employer]), RN notes reviewed, old records reviewed Mode of arrival: ambulatory - History of Present Illness MD Complaint: other (Court order) Associated Psychiatric Symptoms: none History of same: Yes <Diego Vazquez - Last Filed: 10/13/22 20:24> - General Chief Complaint: Psychiatric Symptoms Stated Complaint: Mental health Time Seen by Provider: 10/13/22 12:02 - History of Present Illness Initial Comments: 32-year-old male presents to emergency room with [employer] [facility] He states that he was hospitalized last month and given Risperdal however he is ALLERGIC to this medication and it causes him to have vomiting without nausea. States that his symptoms of vomiting started after being in the hospital and getting this injection. He denies any suicidal or homicidal ideations. No nausea vomiting at this time. No fevers or abdominal pain. Patient denies any alcohol or drug use. States he is not a smoker. (Diego Vazquez) - Related Data Home Medications Medication Instructions Recorded Confirmed Divalproex ER [Depakote ER] 500 mg PO DIRECTED 10/04/22 10/04/22 Divalproex ER [Depakote ER] 750 mg PO DIRECTED 10/04/22 10/04/22 Previous Rx's Medication Instructions Recorded risperiDONE ER inj [Perseris] 120 mg SQ Q28D #1 each 09/12/22 Allergies Allergy/AdvReac Type Severity Reaction Status Date / Time aripiprazole [From Abilify] Allergy Unknown Verified 10/04/22 11:10 propoxyphene Allergy Unknown Verified 10/04/22 11:10 [From Darvocet-N] risperidone [From Risperdal] Allergy Hallucinati Verified 10/04/22 11:10 ons ziprasidone [From Geodon] Allergy Unknown Verified 10/04/22 11:10 fluphenazine enanthate AdvReac Severe Trismus Verified 10/04/22 11:10 [From Prolixin] fluphenazine HCl AdvReac [place]aw Verified 10/04/22 11:10 [From Prolixin] Review of Systems ROS Other: All systems not noted in ROS Statement are negative. <Grant Stark - Last Filed: 10/13/22 14:30> ROS Other: All systems not noted in ROS Statement are negative. <Diego Vazquez - Last Filed: 10/13/22 20:24> ROS Statement: Those systems with pertinent positive or pertinent negative responses have been documented in the HPI. Past Medical History Past Medical History: Seizure Disorder Additional Past Medical History / Comment(s): Schizophrenia, right arm fracture, degenerative disc to lower back, and right wrist plate and screws History of Any Multi-Drug Resistant Organisms: None Reported Past Surgical History: Orthopedic Surgery Additional Past Surgical History / Comment(s): mouth surgery, reduction of right arm fracture. Past Anesthesia/Blood Transfusion Reactions: No Reported Reaction Past Psychological History: Anxiety, Panic Disorder, Schizophrenia Smoking Status: Former smoker Past Alcohol Use History: Rare Past Drug Use History: Marijuana, Methamphetamine - Past Family History Mother Brother(s) Family Medical History: Unable to Obtain <Diego Vazquez - Last Filed: 10/13/22 20:24> General Exam Limitations: no limitations General appearance: alert, in no apparent distress Head exam: Present: atraumatic Eye exam: Absent: scleral icterus, conjunctival injection, periorbital swelling ENT exam: Present: mucous membranes moist Neck exam: Absent: tenderness, meningismus Respiratory exam: Present: normal lung sounds bilaterally. Absent: respiratory distress, accessory muscle use Cardiovascular Exam: Present: regular rate GI/Abdominal exam: Present: soft Extremities exam: Present: normal capillary refill Neurological exam: Present: alert, oriented X3 Psychiatric exam: Present: normal affect, normal mood Skin exam: Present: warm, dry, normal color. Absent: cyanosis, diaphoretic <Diego Vazquez - Last Filed: 10/13/22 20:24> Course <Grant Stark - Last Filed: 10/13/22 14:30> - Reevaluation(s) Time: 14:18 <Diego Vazquez - Last Filed: 10/13/22 20:24> Vital Signs 10/13/22 11:56 Temperature 98 F Pulse Rate 91 Respiratory 16 Rate Blood Pressure 117/85 O2 Sat by Pulse 98 Oximetry - Reevaluation(s) Reevaluation #1: 10/13/22 13:27 I did personally evaluate the patient in case the patient presents recorded petition for noncompliance and is here for inpatient evaluation for schizophrenia. I, Dr. Grant Stark, did complete a physician certification. (Grant Stark) 10/13/22 14:18 Spoke with Bita EPS nurse who states that patient is not ALLERGIC to Risperdal. She did speak with Dr. Cote who states that patient states he is ALLERGIC to all antipsychotics. He states patient not allergic to Risperdal. They are agreeable to providing his Risperdal injection and discharging patient home to follow up with psychiatric hospital mental health. Bita states that she will speak with the patient's guardian. (Diego Vazquez) Reevaluation #2: 10/13/22 14:30 Reevaluation patient finds he is not a risk to himself or anyone else he is taking his treatment he will be discharged and negative certain is filled out by me. (Grant Stark) Medical Decision Making <Diego Vazquez - Last Filed: 10/13/22 20:24> - Medical Decision Making Per Bita with EPS she did speak with Dr. Cote who has seen this patient in the past multiple times and recommends the patient get his injection of Risperdal and be discharged home to follow up with psychiatric hospital mental health. He states that patient is not ALLERGIC to this medication and continued to claim to be ALLERGIC to of his antipsychotics. Patient was willing to accept an injection and be discharged home. Case discussed with Dr. Stark Was pt. sent in by a medical professional or institution? @ -no Did you speak to anyone other than the patient for history? @ -EPS nurse Bita and [facility]OL[facility] Did you review nursing and triage notes? @ -yes i agree Were old charts reviewed? @ -no Differential Diagnosis? @ -Acute psychosis, suicidal or homicidal ideation, medication nonadherence this is not an all inclusive list What testing was considered but not performed? (CT, X-rays, U/S, labs)? Why? @ none What meds were considered but not given? Why? @ -none Did you discuss the management of the patient with other professionals? @ -EPS nurse Did you reconcile home meds? @ -no Was smoking cessation discussed for >3mins.? @ -no Was critical care preformed (if so, how long)? @ -no Were there social determinants of health that impacted care today? How? (Homelessness, low income, unemployed, alcoholism, drug addiction, transportation, low edu. Level, literacy, decrease access to med. care, [facility], rehab)? @ -Mental illness Was there de-escalation of care discussed even if they declined? (Discuss DNR or withdrawal of care, Hospice)? @ -no What co-morbidities impacted this encounter? (DM, HTN, Smoking, COPD, CAD, Cancer, CVA, Hep., AIDS, mental health diagnosis, sleep apnea, morbid obesity)? @ -Schizophrenia, seizures Was patient admitted / discharged? @ -Discharged Undiagnosed new problem with uncertain prognosis? @ - Drug Therapy requiring intensive monitoring for toxicity (Heparin, Nitro, Insulin, Cardizem)? @ -[Were any procedures done? @ no Diagnosis/symptom? @ -Medication nonadherence Acute, or Chronic, or Acute on Chronic? @ -acute on chronic Uncomplicated (without systemic symptoms) or Complicated (systemic symptoms)? @ -[default] Side effects of treatment? @ -[none] Exacerbation, Progression, or Severe Exacerbation] @ -[no] Poses a threat to life or bodily function? @ -[no] (Diego Vazquez) Disposition <Grant Stark - Last Filed: 10/13/22 14:30> Is patient prescribed a controlled substance at d/c from ED?: No Time of Disposition: 15:04 <Diego Vazquez - Last Filed: 10/13/22 20:24> Clinical Impression: Adjustment reaction of adult life, Medication administered, Schizophrenia, acute undifferentiated, Nonadherence to medication Disposition: HOME SELF-CARE Condition: Good Additional Instructions: Please follow-up with community mental health for continuation of care. Referrals: Anna Gandhi MD [Primary Care Provider] - 1-2 days
[2022-10-13] MEDS ORDERED: risperiDONE 120 MG SYR (NO COST) PHARMACY STOCK SQ STA (14:14)
[2022-10-13] MEDS ORDERED: LORazepam 1 MG TAB PO STA (15:11)
== END 2022-10-13 15:24 | disposition home or self-care (01) ==
LOC: EC 11:52
DX: F43.20 Adjustment disorder, unspecified (principal); F20.9 Schizophrenia, unspecified; F41.9 Anxiety disorder, unspecified; F12.90 Cannabis use, unspecified, uncomplicated; Z87.891 Personal history of nicotine dependence; Z88.8 Allergy status to other drugs, medicaments and biological substances
CPT/HCPCS: 82075; 99284; J2798

== ENCOUNTER 2022-10-20 18:08 | Emergency (ER) | payer MEDICARE, OTHER ==
[2022-10-20 18:36] VITALS: BP 129/85; PULSE 89; RESP 16; TEMP 98
--- NOTE | 2022-10-20 19:06 | ED ---
General Adult HPI - General Chief complaint: Psychiatric Symptoms Stated complaint: Med refill, vomiting Time Seen by Provider: 10/20/22 18:44 Source: patient, family Mode of arrival: ambulatory Limitations: no limitations - History of Present Illness Initial comments: Dictation was produced using [employer] dictation software. please excuse any gramma tical, word or spelling errors. Chief Complaint: 32-year-old male well-known to emergency part for further psychiatric complaints presents to the ER for medication change History of Present Illness: To 32-year-old male started on Risperdal recently. Patient states that he feels like the medications make him nauseated and wants a medication adjustment. Patient's that these medications for fear of side effects. Patient has no other complaints. The ROS documented in this emergency department record has been reviewed and confirmed by me. Those systems with pertinent positive or negative responses have been documented in the HPI. All other systems are other negative and/or noncontributory. PHYSICAL EXAM: General Impression: Alert and oriented x3, not in acute distress HEENT: Normocephalic atraumatic, extra-ocular movements intact, pupils equal and reactive to light bilaterally, mucous membranes moist. Cardiovascular: Heart regular rate and rhythm Chest: Able to complete full sentences, no retractions, no tachypnea Musculoskeletal: , no peripheral edema Motor: no focal deficits noted Neurological: CN II-XII grossly intact, no focal motor or sensory deficits noted Skin: Intact with no visualized rashes Psych: Tangential speech ED course: 32 year old male presents emergency department for request for psychiatric medication adjustments. Vital signs upon arrival are within acceptable limits. Physical examination is benign. Patient is well-appearing.. [vital signs] Nursing notes and chart review was performed Patient evaluated by EPS and recommended discharge with [facility] follow-up. - Related Data Home Medications Medication Instructions Recorded Confirmed Divalproex ER [Depakote ER] 500 mg PO DIRECTED 10/04/22 10/04/22 Divalproex ER [Depakote ER] 750 mg PO DIRECTED 10/04/22 10/04/22 Previous Rx's Medication Instructions Recorded risperiDONE ER inj [Perseris] 120 mg SQ Q28D #1 each 09/12/22 Allergies Allergy/AdvReac Type Severity Reaction Status Date / Time aripiprazole [From Abilify] Allergy Unknown Verified 10/04/22 11:10 divalproex sodium Allergy Vomiting Verified 10/20/22 18:37 [From Depakote] propoxyphene Allergy Unknown Verified 10/04/22 11:10 [From Darvocet-N] risperidone [From Risperdal] Allergy Hallucinati Verified 10/04/22 11:10 ons ziprasidone [From Geodon] Allergy Unknown Verified 10/04/22 11:10 fluphenazine enanthate AdvReac Severe Trismus Verified 10/04/22 11:10 [From Prolixin] fluphenazine HCl AdvReac [place] Verified 10/04/22 11:10 [From Prolixin] Review of Systems ROS Statement: Those systems with pertinent positive or pertinent negative responses have been documented in the HPI. ROS Other: All systems not noted in ROS Statement are negative. Past Medical History Past Medical History: Seizure Disorder Additional Past Medical History / Comment(s): Schizophrenia, right arm fracture, degenerative disc to lower back, and right wrist plate and screws History of Any Multi-Drug Resistant Organisms: None Reported Past Surgical History: Orthopedic Surgery Additional Past Surgical History / Comment(s): mouth surgery, reduction of right arm fracture. Past Anesthesia/Blood Transfusion Reactions: No Reported Reaction Past Psychological History: Anxiety, Panic Disorder, Schizophrenia Smoking Status: Former smoker Past Alcohol Use History: Rare Past Drug Use History: Marijuana, Methamphetamine - Past Family History Mother Brother(s) Family Medical History: Unable to Obtain General Exam Limitations: no limitations Course Vital Signs 10/20/22 18:34 Temperature 98 F Pulse Rate 89 Respiratory 16 Rate Blood Pressure 129/85 O2 Sat by Pulse 97 Oximetry Disposition Clinical Impression: Psychiatric complaint Disposition: HOME SELF-CARE Condition: Good Is patient prescribed a controlled substance at d/c from ED?: No Referrals: Anna Gandhi MD [Primary Care Provider] - 1-2 days Time of Disposition: 19:31
[2022-10-20] MEDS ORDERED: ONDANSETRON 4 MG ODT STARTER PACK 2 TAB BTL PO STA (19:27)
[2022-10-20] MEDS ORDERED: LORazepam 1 MG TAB PO STA (19:33)
== END 2022-10-20 19:38 | disposition home or self-care (01) ==
LOC: EC 18:08
DX: F99 Mental disorder, not otherwise specified (principal); F41.9 Anxiety disorder, unspecified; Z87.891 Personal history of nicotine dependence; F12.90 Cannabis use, unspecified, uncomplicated; Z88.8 Allergy status to other drugs, medicaments and biological substances
CPT/HCPCS: 99283; S0119

== ENCOUNTER 2022-12-15 20:24 | Emergency (ER) | payer MEDICARE, OTHER ==
[2022-12-15 20:53] VITALS: TEMP 97.9
[2022-12-15] MEDS ORDERED: LORazepam 1 MG TAB PO STA (21:51)
--- NOTE | 2022-12-15 23:01 | ED ---
General Adult HPI - General Chief complaint: Allergic Reaction Stated complaint: Allergic reaction Time Seen by Provider: 12/15/22 21:35 Source: patient, family, RN notes reviewed, old records reviewed Mode of arrival: ambulatory Limitations: no limitations - History of Present Illness Initial comments: Patient is a 32-year-old male who presents emergency department over concern for "ALLERGIC reaction to risperdal." Patient states he does receive IM injections of this medication on a regular basis. States it makes him feel anxious and jittery. Has had similar reactions in the past but they keep him on it. Presents with his mother for concern for another anxiety episode. Denies any suicidal or homicidal ideations, attempts, plans. Denies any visual or auditory hallucinations. Denies any chest pain, shortness breath, abdominal pain, nausea, vomiting. States he does have chest pain occasionally but none currently. States it is usually associated with his increased anxiety. States he typically receives Ativan and can go home. He states he feels, to follow up with [facility] on an outpatient basis. Patient's mother also agrees that the patient does not require admission reduction by psychiatry right now but they're just seeking symptomatically for the anxiety. Patient is not a danger to himself or others. Patient presents for treatment. - Related Data Previous Rx's Medication Instructions Recorded Amitriptyline HCl [Elavil] 100 mg PO HS 30 Days #60 tab 11/07/22 Gabapentin [Neurontin] 1,200 mg PO BID 30 Days #180 cap 11/07/22 OLANZapine [ZyPREXA] 10 mg PO BID 30 Days #60 tab 11/07/22 Ondansetron [Zofran] 4 mg PO Q8HR PRN 5 Days #10 tab 11/07/22 Pantoprazole [Protonix] 40 mg PO AC-BID 30 Days #60 tab 11/07/22 cloNIDine HCL [Catapres] 0.1 mg PO BID 30 Days #60 tab 11/07/22 clonazePAM [KlonoPIN] 0.5 mg PO BID 30 Days #60 tab 11/07/22 hydrOXYzine pamoate [Vistaril] 50 mg PO TID PRN 30 Days #180 cap 11/07/22 risperiDONE ER inj [Perseris] 120 mg SQ Q28D 28 Days #1 kit 11/07/22 Allergies Allergy/AdvReac Type Severity Reaction Status Date / Time aripiprazole [From Abilify] Allergy Unknown Verified 10/22/22 15:19 divalproex sodium Allergy Vomiting Verified 10/22/22 15:19 [From Depakote] propoxyphene Allergy Unknown Verified 10/22/22 15:19 [From Darvocet-N] ziprasidone [From Geodon] Allergy Unknown Verified 10/22/22 15:19 fluphenazine enanthate AdvReac Severe Trismus Verified 10/22/22 15:19 [From Prolixin] fluphenazine HCl AdvReac [place] Verified 10/22/22 15:19 [From Prolixin] Review of Systems ROS Statement: Those systems with pertinent positive or pertinent negative responses have been documented in the HPI. Review of Systems: CONST: Denies fever EYES: Denies blurry vision ENT: Denies nasal congestion C/V: Denies Chest pain RESP: Denies shortness of breath GI: Denies abdominal pain : Denies dysuria SKIN: Denies rash. MSK: Denies joint pain. NEURO: Denies headache PSYCH: Denies suicidal and homicidal ideations/plans/attempts. Denies visual or auditory hallucinations. ROS Other: All systems not noted in ROS Statement are negative. Past Medical History Past Medical History: Seizure Disorder Additional Past Medical History / Comment(s): Schizophrenia, right arm fracture, degenerative disc to lower back, and right wrist plate and screws History of Any Multi-Drug Resistant Organisms: None Reported Past Surgical History: Orthopedic Surgery Additional Past Surgical History / Comment(s): mouth surgery, reduction of right arm fracture. Past Anesthesia/Blood Transfusion Reactions: No Reported Reaction Past Psychological History: Anxiety, Panic Disorder, Schizophrenia Smoking Status: Former smoker Past Alcohol Use History: Rare Past Drug Use History: Marijuana, Methamphetamine - Past Family History Mother Brother(s) Family Medical History: Unable to Obtain General Exam - General Exam Comments Initial Comments: General: Appears in no acute distress. HEAD: Normal with no signs of head trauma. EYES: PERRLA, EOMI, conjunctiva normal, no discharge. Pupils are 3 mm equal bilaterally. ENT: Hearing grossly intact, normal oropharynx. RESPIRATORY: Clear breath sounds bilaterally. No wheezes, rales, or rhonchi. C/V: Regular rate and rhythm. S1 and S2 auscultated, no edema, peripheral pulses 2+ and intact throughout ABD: Abd is soft, nontender, nondistended EXT: Normal range of motion, no obvious deformity SKIN: No rashes or lesions observed on exposed skin. NEURO: Alert and oriented 4. No signs of tardive dyskinesia. Limitations: no limitations Course Vital Signs 12/15/22 12/15/22 20:48 23:15 Temperature 97.9 F Pulse Rate 110 H 96 Respiratory 16 18 Rate Blood Pressure 122/83 118/62 O2 Sat by Pulse 99 99 Oximetry Medical Decision Making - Medical Decision Making Was pt. sent in by a medical professional or institution (, [facility], STUDENT MINISTRIES DIRECTOR, urgent care, hospital, or fdc...) When possible be specific @ -No Did you speak to anyone other than the patient for history (EMS, parent, family, police, friend...)? What history was obtained from this source @ -Yes, patient's mother who assists in the history. Did you review nursing and triage notes (agree or disagree)? Why? @ -I reviewed and agree with nursing and triage notes Were old charts reviewed (outside hosp., previous admission, EMS record, old EKG, old radiological studies, urgent care reports/EKG's, fdc records)? Report findings @ -Yes, charts were reviewed including prior visits for anxiety. Differential Diagnosis (chest pain, altered mental status, abdominal pain women, abdominal pain men, vaginal bleeding, weakness, fever, dyspnea, syncope, headache, dizziness, GI bleed, back pain, seizure, CVA, palpatations, mental health, musculoskeletal)? @ -Anxiety, medication reaction, tardive dyskinesia, this list is not all inclusive. EKG interpreted by me (3pts min.). @ -As above X-rays interpreted by me (1pt min.). @ -None done CT interpreted by me (1pt min.). @ -None done U/S interpreted by me (1pt. min.). @ -None done What testing was considered but not performed or refused? (CT, X-rays, U/S, labs)? Why? @ -None What meds were considered but not given or refused? Why? @ -None Did you discuss the management of the patient with other professionals (professionals i.e. , CU[facility], STUDENT MINISTRIES DIRECTOR, lab, RT, psych nurse, manager social responsibility, corporate operations compliance manager, teacher, account officer, binder caser)? Give summary @ -No Was smoking cessation discussed for >3mins.? @ -No Was critical care preformed (if so, how long)? @ -No Were there social determinants of health that impacted care today? How? (Homelessness, low income, unemployed, alcoholism, drug addiction, transportation, low edu. Level, literacy, decrease access to med. care, [facility], rehab)? @ -No Was there de-escalation of care discussed even if they declined (Discuss DNR or withdrawal of care, Hospice)? DNR status @ -No What co-morbidities impacted this encounter? (DM, HTN, Smoking, COPD, CAD, Cancer, CVA, ARF, Chemo, Hep., AIDS, mental health diagnosis, sleep apnea, morbid obesity)? @ -None Was patient admitted / discharged? Hospital course, mention meds given and route, prescriptions, significant lab abnormalities, going to OR and other pertinent info. @ -Based on the patient's presentation and physical exam, I do believe he is likely experiencing some typical anxiety that he gets with his respiratory injections which he recently had one done. Is requesting Ativan. His no other complaints at this time. We will obtain a screening EKG. He currently is not obtained to himself or others. I do not believe that he requires urgent psychiatric evaluation. She is smothering patient remained agreement this plan. They will contact [facility] in the morning to follow up regarding his medications. V ital signs within acceptable limits. There were otherwise in agreement this plan. He will receive a dose of oral Ativan for his anxiety. EKG shows no signs of ischemia. On reevaluation, patient feels much improved and would like to leave. Strict return precautions were discussed. Patient instructed to follow-up with [facility] tomorrow. I instructed the patient to follow up with their PCP in the next 1-3 days. I explained that the patient should return to the emergency department if they experience any worsening symptoms. Strict return precautions were discussed with the patient. The patient expressed understanding of these instructions. I answered all questions that the patient had. The patient was discharged home in good condition with their prescriptions and follow up information. Undiagnosed new problem with uncertain prognosis? @ -No Drug Therapy requiring intensive monitoring for toxicity (Heparin, Nitro, Insul in, Cardizem)? @ -No Were any procedures done? @ -No Diagnosis/symptom? @ -Anxiety Acute, or Chronic, or Acute on Chronic? @ -Acute Uncomplicated (without systemic symptoms) or Complicated (systemic symptoms)? @ -Uncomplicated Side effects of treatment? @ -No Exacerbation, Progression, or Severe Exacerbation? @ -No Poses a threat to life or bodily function? How? (Chest pain, USA, CT, pneumonia, PE, COPD, DKA, ARF, appy, cholecystitis, CVA, Diverticulitis, Homicidal, Suicidal, threat to staff... and all critical care pts) @ -No - EKG Data -: EKG Interpreted by Me EKG Comments: 12-lead Electrocardiogram Interpretation Note EKG was reviewed and interpreted by myself. 12-lead ECG performed at 2236 is interpreted by me as revealing normal sinus rhythm at a rate of 80 beats per minute. [place] is normal. RI interval is 135 ms, QRS duration is 106 ms, QTc is 404 ms.. There were no ST or T wave abnormalities to suggest myocardial ischemia or injury. R wave progression across the precordium was satisfactory. By my interpretation this EKG is non-diagnostic for acute ischemia. Disposition Clinical Impression: Anxiety Disposition: HOME SELF-CARE Condition: Good Instructions (If sedation given, give patient instructions): Anxiety (ED) Is patient prescribed a controlled substance at d/c from ED?: No Referrals: Anna Gandhi MD [Primary Care Provider] - 1-2 days Time of Disposition: 22:50
[2022-12-15 23:17] VITALS: BP 118/62; PULSE 96; RESP 18
== END 2022-12-15 23:17 | disposition home or self-care (01) ==
LOC: EC 20:24
DX: F41.9 Anxiety disorder, unspecified (principal); F12.90 Cannabis use, unspecified, uncomplicated; F15.20 Other stimulant dependence, uncomplicated; Z88.6 Allergy status to analgesic agent; Z88.8 Allergy status to other drugs, medicaments and biological substances; Z87.891 Personal history of nicotine dependence
CPT/HCPCS: 93005; 99284

== ENCOUNTER 2022-12-19 17:17 | Emergency (ER) | payer MEDICARE, OTHER ==
[2022-12-19 17:26] VITALS: BP 127/83; PULSE 92; RESP 18; TEMP 98.1
[2022-12-19] MEDS ORDERED: hydrOXYzine HCL 25 MG TAB PO STA (17:57)
--- NOTE | 2022-12-19 18:11 | ED ---
Recheck HPI - General Chief Complaint: Recheck/Abnormal Lab/Rx Stated Complaint: Medication reaction Time Seen by Provider: 12/19/22 17:34 Source: patient Mode of arrival: ambulatory Limitations: no limitations - History of Present Illness Initial Comments: Patient is a 32-year-old male presenting with chief complaint of medication reaction. Patient states that he was placed back on risperidone injections, states that he allergic to risperidone because it makes him feel more anxious. Patient was seen here recently for the same complaint and received Ativan. Patient is requesting a prescription for Ativan for home. No chest pain, difficulty breathing, palpitations, numbness, tingling, abdominal pain, fever, chills. - Related Data Previous Rx's Medication Instructions Recorded Amitriptyline HCl [Elavil] 100 mg PO HS 30 Days #60 tab 11/07/22 Gabapentin [Neurontin] 1,200 mg PO BID 30 Days #180 cap 11/07/22 OLANZapine [ZyPREXA] 10 mg PO BID 30 Days #60 tab 11/07/22 Ondansetron [Zofran] 4 mg PO Q8HR PRN 5 Days #10 tab 11/07/22 Pantoprazole [Protonix] 40 mg PO AC-BID 30 Days #60 tab 11/07/22 cloNIDine HCL [Catapres] 0.1 mg PO BID 30 Days #60 tab 11/07/22 clonazePAM [KlonoPIN] 0.5 mg PO BID 30 Days #60 tab 11/07/22 hydrOXYzine pamoate [Vistaril] 50 mg PO TID PRN 30 Days #180 cap 11/07/22 risperiDONE ER inj [Perseris] 120 mg SQ Q28D 28 Days #1 kit 11/07/22 hydrOXYzine HCL [Atarax] 100 mg PO Q6H PRN #30 tablet 12/19/22 Allergies Allergy/AdvReac Type Severity Reaction Status Date / Time aripiprazole [From Abilify] Allergy Unknown Verified 10/22/22 15:19 divalproex sodium Allergy Vomiting Verified 10/22/22 15:19 [From Depakote] propoxyphene Allergy Unknown Verified 10/22/22 15:19 [From Darvocet-N] ziprasidone [From Geodon] Allergy Unknown Verified 10/22/22 15:19 fluphenazine enanthate AdvReac Severe Trismus Verified 10/22/22 15:19 [From Prolixin] fluphenazine HCl AdvReac [place] Verified 10/22/22 15:19 [From Prolixin] risperidone AdvReac Nausea & Verified 12/19/22 17:26 Vomiting Review of Systems ROS Statement: Those systems with pertinent positive or pertinent negative responses have been documented in the HPI. ROS Other: All systems not noted in ROS Statement are negative. Past Medical History Past Medical History: Seizure Disorder Additional Past Medical History / Comment(s): Schizophrenia, right arm fracture, degenerative disc to lower back, and right wrist plate and screws History of Any Multi-Drug Resistant Organisms: None Reported Past Surgical History: Orthopedic Surgery Additional Past Surgical History / Comment(s): mouth surgery, reduction of right arm fracture. Past Anesthesia/Blood Transfusion Reactions: No Reported Reaction Past Psychological History: Anxiety, Panic Disorder, Schizophrenia Smoking Status: Former smoker Past Alcohol Use History: Rare Past Drug Use History: Marijuana, Methamphetamine - Past Family History Mother Brother(s) Family Medical History: Unable to Obtain General Exam Limitations: no limitations General appearance: alert, in no apparent distress Head exam: Present: atraumatic, normocephalic, normal inspection Eye exam: Present: normal appearance Neck exam: Present: normal inspection, full ROM Respiratory exam: Present: normal lung sounds bilaterally. Absent: respiratory distress, wheezes, rales, rhonchi, stridor Cardiovascular Exam: Present: regular rate, normal rhythm, normal heart sounds. Absent: systolic murmur, diastolic murmur, rubs, gallop, clicks Neurological exam: Present: alert, oriented X3, CN II-XII intact Psychiatric exam: Present: normal affect, normal mood Skin exam: Present: warm, dry, intact, normal color. Absent: rash Course Vital Signs 12/19/22 17:23 Temperature 98.1 F Pulse Rate 92 Respiratory 18 Rate Blood Pressure 127/83 O2 Sat by Pulse 97 Oximetry Medical Decision Making - Medical Decision Making Was pt. sent in by a medical professional or institution (, PA, AUTOMOBILE WRECKER, urgent care, hospital, or intermediate...) When possible be specific @ -No Did you speak to anyone other than the patient for history (EMS, parent, family, police, friend...)? What history was obtained from this source @ -No Did you review nursing and triage notes (agree or disagree)? Why? @ -I reviewed and agree with nursing and triage notes Were old charts reviewed (outside hosp., previous admission, EMS record, old EKG, old radiological studies, urgent care reports/EKG's, intermediate records)? Report findings @ -No old charts were reviewed Differential Diagnosis (chest pain, altered mental status, abdominal pain women, abdominal pain men, vaginal bleeding, weakness, fever, dyspnea, syncope, headache, dizziness, GI bleed, back pain, seizure, CVA, palpatations, mental health, musculoskeletal)? @ -Differential Mental Health Depression, anxiety, bipolar, psychosis, schizophrenia, borderline personality, situational depression, adjustment disorder, behavioral disorder, brain tumor, malingering, substance abuse, encephalopathy, medication reaction, dementia, hypothyroidism, degenerative neurologic disorder, lupus.... This is not meant to be all-inclusive list EKG interpreted by me (3pts min.). @ -As above X-rays interpreted by me (1pt min.). @ -None done CT interpreted by me (1pt min.). @ -None done U/S interpreted by me (1pt. min.). @ -None done What testing was considered but not performed or refused? (CT, X-rays, U/S, labs)? Why? @ -None What meds were considered but not given or refused? Why? @ -None Did you discuss the management of the patient with other professionals (professionals i.e. , PA, AUTOMOBILE WRECKER, lab, RT, psych nurse, psychiatric social worker supervisor, coal crusher operator, teacher, armor officer, case checker)? Give summary @ -No Was smoking cessation discussed for >3mins.? @ -No Was critical care preformed (if so, how long)? @ -No Were there social determinants of health that impacted care today? How? (Homelessness, low income, unemployed, alcoholism, drug addiction, tr ansportation, low edu. Level, literacy, decrease access to med. care, longterm, rehab)? @ -No Was there de-escalation of care discussed even if they declined (Discuss DNR or withdrawal of care, Hospice)? DNR status @ -No What co-morbidities impacted this encounter? (DM, HTN, Smoking, COPD, CAD, Cancer, CVA, ARF, Chemo, Hep., AIDS, mental health diagnosis, sleep apnea, morbid obesity)? @ -Schizophrenia, anxiety Was patient admitted / discharged? Hospital course, mention meds given and r oute, prescriptions, significant lab abnormalities, going to OR and other pertinent info. @ -Patient is a 32-year-old male presenting with chief complaint of medication reaction. Patient states that he was recently started back on risperidone injections, which he states gives him increased anxiety. He has no other physical complaints at this time. He denies any suicidal or homicidal ideation. He is requesting Ativan. Patient takes hydroxyzine 50 mg at home. Hydroxyzine dose will be increased to 100 mg. Patient is educated on not taking this medication before driving or operating heavy machinery as it may cause drowsiness. Follow up with [facility]. Follow-up with PCP. Report back to ER with any new or worsening symptoms. Discussed return parameters and answered all questions. Patient conveyed verbal understanding and agreed to the plan. I discussed this case in detail with my attending Dr. Peralta Undiagnosed new problem with uncertain prognosis? @ -No Drug Therapy requiring intensive monitoring for toxicity (Heparin, Nitro, Insulin, Cardizem)? @ -No Were any procedures done? @ -No Diagnosis/symptom? @ -Anxiety Acute, or Chronic, or Acute on Chronic? @ -Acute on chronic Uncomplicated (without systemic symptoms) or Complicated (systemic symptoms)? @ -Uncomplicated Side effects of treatment? @ -No Exacerbation, Progression, or Severe Exacerbation? @ -No Poses a threat to life or bodily function? How? (Chest pain, USA, CT, pneumonia, PE, COPD, DKA, ARF, appy, cholecystitis, CVA, Diverticulitis, Homicidal, Suicidal, threat to staff... and all critical care pts) @ -No Disposition Clinical Impression: Anxiety Disposition: HOME SELF-CARE Condition: Good Instructions (If sedation given, give patient instructions): Anxiety (ED) Additional Instructions: Follow-up with PCP and [facility]. Report back to ER with any new or worsening symptoms. Follow-up with your PCP and neurologist regarding your Neurontin. Prescriptions: hydrOXYzine HCL [Atarax] 100 mg PO Q6H PRN #30 tablet PRN Reason: Anxiety Is patient prescribed a controlled substance at d/c from ED?: No Referrals: Anna Gandhi MD [Primary Care Provider] - 1-2 days Time of Disposition: 18:10
== END 2022-12-19 18:33 | disposition home or self-care (01) ==
LOC: EC 17:17
DX: F41.9 Anxiety disorder, unspecified (principal); F12.90 Cannabis use, unspecified, uncomplicated; F15.90 Other stimulant use, unspecified, uncomplicated; Z87.891 Personal history of nicotine dependence; Z88.8 Allergy status to other drugs, medicaments and biological substances
CPT/HCPCS: 99283

== ENCOUNTER 2022-12-21 17:31 | Emergency (ER) | payer MEDICARE, OTHER ==
[2022-12-21 17:48] VITALS: TEMP 98
[2022-12-21] MEDS ORDERED: GABAPENTIN 400 MG CAP PO STA (19:03)
--- NOTE | 2022-12-21 22:03 | ED ---
Psych HPI - General Chief Complaint: Psychiatric Symptoms Stated Complaint: Mental Health Time Seen by Provider: 12/21/22 18:12 Source: patient Mode of arrival: ambulatory - History of Present Illness Initial Comments: 's patient is a 32-year-old man who presents with complaint that he is having nausea and vomiting and had been out of his gabapentin which she takes chronically. Patient also was feeling depressed more than usual over past few days. MD Complaint: feels depressed, other -: days(s) Associated Psychiatric Symptoms: depression History of same: Yes Quality: getting worse Improves With: none Worsens With: none Associated Symptoms: nausea - Related Data Previous Rx's Medication Instructions Recorded Amitriptyline HCl [Elavil] 100 mg PO HS 30 Days #60 tab 11/07/22 Gabapentin [Neurontin] 1,200 mg PO BID 30 Days #180 cap 11/07/22 OLANZapine [ZyPREXA] 10 mg PO BID 30 Days #60 tab 11/07/22 Ondansetron [Zofran] 4 mg PO Q8HR PRN 5 Days #10 tab 11/07/22 Pantoprazole [Protonix] 40 mg PO AC-BID 30 Days #60 tab 11/07/22 cloNIDine HCL [Catapres] 0.1 mg PO BID 30 Days #60 tab 11/07/22 clonazePAM [KlonoPIN] 0.5 mg PO BID 30 Days #60 tab 11/07/22 hydrOXYzine pamoate [Vistaril] 50 mg PO TID PRN 30 Days #180 cap 11/07/22 risperiDONE ER inj [Perseris] 120 mg SQ Q28D 28 Days #1 kit 11/07/22 hydrOXYzine HCL [Atarax] 100 mg PO Q6H PRN #30 tablet 12/19/22 Ondansetron Odt [Zofran ODT] 4 mg PO Q8HR PRN #10 tab 12/21/22 Allergies Allergy/AdvReac Type Severity Reaction Status Date / Time aripiprazole [From Abilify] Allergy Unknown Verified 12/21/22 17:48 divalproex sodium Allergy Vomiting Verified 12/21/22 17:48 [From Depakote] propoxyphene Allergy Unknown Verified 12/21/22 17:48 [From Darvocet-N] ziprasidone [From Geodon] Allergy Unknown Verified 12/21/22 17:48 fluphenazine enanthate AdvReac Severe Trismus Verified 12/21/22 17:48 [From Prolixin] fluphenazine HCl AdvReac [place] Verified 12/21/22 17:48 [From Prolixin] risperidone AdvReac Nausea & Verified 12/21/22 17:48 Vomiting Review of Systems ROS Statement: Those systems with pertinent positive or pertinent negative responses have been documented in the HPI. ROS Other: All systems not noted in ROS Statement are negative. Constitutional: Denies: fever, chills, weakness Respiratory: Denies: cough, dyspnea Cardiovascular: Denies: chest pain, palpitations, syncope Gastrointestinal: Reports: nausea, vomiting. Denies: abdominal pain, diarrhea, hematemesis, melena, hematochezia Genitourinary: Denies: dysuria, hematuria Musculoskeletal: Denies: back pain Skin: Denies: rash Neurological: Denies: headache, weakness Past Medical History Past Medical History: Seizure Disorder Additional Past Medical History / Comment(s): Schizophrenia, right arm fracture, degenerative disc to lower back, and right wrist plate and screws History of Any Multi-Drug Resistant Organisms: None Reported Past Surgical History: Orthopedic Surgery Additional Past Surgical History / Comment(s): mouth surgery, reduction of right arm fracture. Past Anesthesia/Blood Transfusion Reactions: No Reported Reaction Past Psychological History: Anxiety, Panic Disorder, Schizophrenia Smoking Status: Former smoker Past Alcohol Use History: Rare Past Drug Use History: Marijuana, Methamphetamine - Past Family History Mother Brother(s) Family Medical History: Unable to Obtain General Exam Limitations: no limitations General appearance: alert, in no apparent distress Head exam: Present: atraumatic, normocephalic Eye exam: Present: normal appearance. Absent: scleral icterus, conjunctival injection Neck exam: Present: normal inspection Respiratory exam: Present: normal lung sounds bilaterally. Absent: respiratory distress, wheezes, rales, rhonchi, stridor Cardiovascular Exam: Present: regular rate, normal rhythm, normal heart sounds. Absent: systolic murmur, diastolic murmur, rubs, gallop GI/Abdominal exam: Present: soft. Absent: distended, tenderness, guarding, rebound, rigid, mass Extremities exam: Present: normal inspection, normal capillary refill. Absent: pedal edema, calf tenderness Back exam: Present: normal inspection. Absent: CVA tenderness (R), CVA tenderness (L) Neurological exam: Present: alert Psychiatric exam: Absent: agitated, anxious, manic, homicidal ideation, suicidal ideation Skin exam: Present: warm, dry, intact, normal color. Absent: rash Course Vital Signs 12/21/22 12/21/22 12/21/22 17:43 19:28 22:15 Temperature 98 F Pulse Rate 94 84 74 Respiratory 18 18 16 Rate Blood Pressure 165/100 152/84 121/87 O2 Sat by Pulse 97 96 96 Oximetry Medical Decision Making - Medical Decision Making Patient is 32-year-old man with history of previous psychiatric admissions, he was feeling better after receiving one of the usual dose of gabapentin. He did want to speak with the EPS personnel, and after this was feeling better and wanted to go home. Was pt. sent in by a medical professional or institution (, [facility], DRAPERY COUNSELOR, urgent care, hospital, or assisted...) When possible be specific @ -[No] Did you speak to anyone other than the patient for history (EMS, parent, family, police, friend...)? What history was obtained from this source @ -[No] Did you review nursing and triage notes (agree or disagree)? Why? @ -[I reviewed and agree with nursing and triage notes] Were old charts reviewed (outside hosp., previous admission, EMS record, old EKG, old radiological studies, urgent care reports/EKG's, assisted records)? Report findings @ -[No old charts were reviewed] Differential Diagnosis (chest pain, altered mental status, abdominal pain women, abdominal pain men, vaginal bleeding, weakness, fever, dyspnea, syncope, headache, dizziness, GI bleed, back pain, seizure, CVA, palpatations, mental health, musculoskeletal)? @ -[Differential Mental Health Depression, anxiety, bipolar, psychosis, schizophrenia, borderline personality, situational depression, adjustment disorder, behavioral disorder, brain tumor, malingering, substance abuse, encephalopathy, medication reaction, dementia, hypothyroidism, degenerative neurologic disorder, lupus.... This is not meant to be all-inclusive list EKG interpreted by me (3pts min.). @ -[ X-rays interpreted by me (1pt min.). @ -[None done] CT interpreted by me (1pt min.). @ -[None done] U/S interpreted by me (1pt. min.). @ -[None done] What testing was considered but not performed or refused? (CT, X-rays, U/S, labs)? Why? @ -[None] What meds were considered but not given or refused? Why? @ -[None] Did you discuss the management of the patient with other professionals (professionals i.e. Dr., PA, DRAPERY COUNSELOR, lab, RT, psych nurse, neonatal social worker, credit union teller, teacher, fire control officer, case monitor)? Give summary @ -[EPS personnel Was smoking cessation discussed for >3mins.? @ -[No] Was critical care preformed (if so, how long)? @ -[No] Were there social determinants of health that impacted care today? How? (Homelessness, low income, unemployed, alcoholism, drug addiction, transportation, low edu. Level, literacy, decrease access to med. care, half-way, rehab)? @ -[No] Was there de-escalation of care discussed even if they declined (Discuss DNR or withdrawal of care, Hospice)? DNR status @ -[No] What co-morbidities impacted this encounter? (DM, HTN, Smoking, COPD, CAD, Cancer, CVA, ARF, Chemo, Hep., AIDS, mental health diagnosis, sleep apnea, morbid obesity)? @ -[None] Was patient admitted / discharged? Hospital course, mention meds given and route, prescriptions, significant lab abnormalities, going to OR and other pertinent info. @ -[Discharged Undiagnosed new problem with uncertain prognosis? @ -[No] Drug Therapy requiring intensive monitoring for toxicity (Heparin, Nitro, Insulin, Cardizem)? @ -[No] Were any procedures done? @ -[No] Diagnosis/symptom? @ -[Acute nausea, resolved Mood disorder, acute on chronic Acute, or Chronic, or Acute on Chronic? @ -[default] Uncomplicated (without systemic symptoms) or Complicated (systemic symptoms)? @ -[Uncomplicated Side effects of treatment? @ -[No] Exacerbation, Progression, or Severe Exacerbation? @ -[No] Poses a threat to life or bodily function? How? (Chest pain, [place], [place], pneumonia, PE, COPD, DKA, ARF, appy, cholecystitis, CVA, Diverticulitis, Homicidal, Suic idal, threat to staff... and all critical care pts) @ -[No] Disposition Clinical Impression: Schizophrenia Disposition: HOME SELF-CARE Condition: Good Instructions (If sedation given, give patient instructions): Schizophrenia (ED) Prescriptions: Ondansetron Odt [Zofran ODT] 4 mg PO Q8HR PRN #10 tab PRN Reason: Nausea Is patient prescribed a controlled substance at d/c from ED?: No Referrals: Anna Gandhi MD [Primary Care Provider] - 1-2 days
[2022-12-21 22:17] VITALS: BP 121/87; PULSE 74; RESP 16
== END 2022-12-21 22:17 | disposition home or self-care (01) ==
LOC: EC 17:31
DX: F20.9 Schizophrenia, unspecified (principal); F41.9 Anxiety disorder, unspecified; F12.90 Cannabis use, unspecified, uncomplicated; F15.90 Other stimulant use, unspecified, uncomplicated; Z88.6 Allergy status to analgesic agent; Z88.8 Allergy status to other drugs, medicaments and biological substances; Z87.891 Personal history of nicotine dependence
CPT/HCPCS: 82075; 99284

== ENCOUNTER 2023-02-09 15:15 | Inpatient (IN) | payer MEDICARE, MEDICAID ==
--- NOTE | 2023-02-09 16:38 | ED ---
Psych HPI - General Chief Complaint: Psychiatric Symptoms Stated Complaint: petition Time Seen by Provider: 02/09/23 15:53 Source: patient Mode of arrival: ambulatory - History of Present Illness Initial Comments: This patient is a 32-year-old man with history of previous psychiatric disorders, presenting to have evaluation at request of [facility]. The patient reportedly was declining to take injectable antipsychotic today. The patient states that the injections cause too many side effects. He states that it makes him feel like a zombie. He states that he is tired all the time. He states that he isn't able to speak, and that this causes him to go crazy. The patient states that he has been feeling relatively well recently. He states he is not having hallucinations. No depressed mood or suicidal ideation. He states that he feels well and wants to continue on his current regimen without the injectable anesthetic. Complaint: other -: hour(s) Associated Psychiatric Symptoms: none Improves With: none Worsens With: none - Related Data Home Medications Medication Instructions Recorded Confirmed Metoprolol Succinate (ER) [Toprol 50 mg PO DAILY 02/09/23 02/09/23 Xl] Mirtazapine [Remeron] 15 mg PO HS 02/09/23 02/09/23 OLANZapine [ZyPREXA] 10 mg PO HS 02/09/23 02/09/23 carBAMazepine [TEGretol] 200 mg PO BID 02/09/23 02/09/23 hydrOXYzine pamoate [Vistaril] 50 mg PO Q6H PRN 02/09/23 02/09/23 risperiDONE MICROSPHERES 50 mg IM Q14D 02/09/23 02/09/23 [RisperDAL Consta] Allergies Allergy/AdvReac Type Severity Reaction Status Date / Time aripiprazole [From Abilify] Allergy Unknown Verified 02/09/23 16:42 divalproex sodium Allergy Vomiting Verified 02/09/23 16:42 [From Depakote] propoxyphene Allergy Unknown Verified 02/09/23 16:42 [From Darvocet-N] ziprasidone [From Geodon] Allergy Unknown Verified 02/09/23 16:42 fluphenazine enanthate AdvReac Severe Trismus Verified 02/09/23 16:42 [From Prolixin] fluphenazine HCl AdvReac [place] Verified 02/09/23 16:42 [From Prolixin] risperidone AdvReac Nausea & Verified 02/09/23 16:42 Vomiting Review of Systems ROS Statement: Those systems with pertinent positive or pertinent negative responses have been documented in the HPI. ROS Other: All systems not noted in ROS Statement are negative. Constitutional: Denies: fever, chills Respiratory: Denies: cough, dyspnea Cardiovascular: Denies: chest pain Gastrointestinal: Denies: abdominal pain, vomiting Neurological: Denies: headache, weakness Psychiatric: Denies: depression, auditory hallucinations, visual hallucinations, homicidal thoughts, suicidal thoughts Past Medical History Past Medical History: Seizure Disorder Additional Past Medical History / Comment(s): Schizophrenia, right arm fracture, degenerative disc to lower back, and right wrist plate and screws History of Any Multi-Drug Resistant Organisms: None Reported Past Surgical History: Orthopedic Surgery Additional Past Surgical History / Comment(s): mouth surgery, reduction of right arm fracture. Past Anesthesia/Blood Transfusion Reactions: No Reported Reaction Past Psychological History: Anxiety, Panic Disorder, Schizophrenia Smoking Status: Former smoker Past Alcohol Use History: Rare Past Drug Use History: Marijuana, Methamphetamine - Past Family History Mother Brother(s) Family Medical History: Unable to Obtain General Exam General appearance: alert, in no apparent distress Head exam: Present: atraumatic, normocephalic Eye exam: Present: normal appearance. Absent: scleral icterus, conjunctival injection Neck exam: Present: normal inspection Respiratory exam: Present: normal lung sounds bilaterally. Absent: respiratory distress, wheezes, rales, rhonchi, stridor Cardiovascular Exam: Present: regular rate, normal rhythm, normal heart sounds. Absent: systolic murmur, diastolic murmur, rubs, gallop GI/Abdominal exam: Present: soft. Absent: distended, tenderness, guarding, rebound, rigid, mass Extremities exam: Present: normal inspection, normal capillary refill Back exam: Present: normal inspection Neurological exam: Present: alert, oriented X3, CN II-XII intact. Absent: motor sensory deficit Psychiatric exam: Present: normal affect, normal mood. Absent: agitated, flat affect, manic, homicidal ideation, suicidal ideation Skin exam: Present: warm, dry, intact, normal color. Absent: rash Course Vital Signs 02/09/23 15:45 Temperature 98.2 F Pulse Rate 109 H Respiratory 18 Rate Blood Pressure 126/76 O2 Sat by Pulse 98 Oximetry Medical Decision Making - Medical Decision Making This patient is 32-year-old man sent here to have evaluation for noncompliance with his mandated treatment plan. Given the noncompliance, patient to be admitted Was pt. sent in by a medical professional or institution ([facility] Cantrell, PATIENT SERVICE REP, urgent care, hospital, or retirement...) When possible be specific @ -The patient sent in by [facility] Did you speak to anyone other than the patient for history (EMS, parent, family, police, friend...)? What history was obtained from this source @ -[No] Did you review nursing and triage notes (agree or disagree)? Why? @ -[I reviewed and agree with nursing and triage notes] Were old charts reviewed (outside hosp., previous admission, EMS record, old EKG, old radiological studies, urgent care reports/EKG's, retirement records)? Report findings @ -[old charts were reviewed] Differential Diagnosis (chest pain, altered mental status, abdominal pain women, abdominal pain men, vaginal bleeding, weakness, fever, dyspnea, syncope, headache, dizziness, GI bleed, back pain, seizure, CVA, palpatations, mental health, musculoskeletal)? @ -[Differential Mental Health Depression, anxiety, bipolar, psychosis, schizophrenia, borderline personality, situational depression, adjustment disorder, behavioral disorder, brain tumor, malingering, substance abuse, encephalopathy, medication reaction, dementia, hypothyroidism, degenerative neurologic disorder, lupus.... This is not meant to be all-inclusive list EKG interpreted by me (3pts min.). @ -[ X-rays interpreted by me (1pt min.). @ -[None done] CT interpreted by me (1pt min.). @ -[None done] U/S interpreted by me (1pt. min.). @ -[None done] What testing was considered but not performed or refused? (CT, X-rays, U/S, labs)? Why? @ -[None] What meds were considered but not given or refused? Why? @ -[None] Did you discuss the management of the patient with other professionals (professionals i.e. [facility] Cantrell, PATIENT SERVICE REP, lab, RT, psych nurse, social work instructor, external relations director, teacher, project control officer, rehabilitation caseworker)? Give summary @ -[Case discussed with EPS personnel Was smoking cessation discussed for >3mins.? @ -[No] Was critical care preformed (if so, how long)? @ -[No] Were there social determinants of health that impacted care today? How? (Homelessness, low income, unemployed, alcoholism, drug addiction, transportation, low edu. Level, literacy, decrease access to med. care, [facility], rehab)? @ -[No] Was there de-escalation of care discussed even if they declined (Discuss DNR or withdrawal of care, Hospice)? DNR status @ -[No] What co-morbidities impacted this encounter? (DM, HTN, Smoking, COPD, CAD, Cancer, CVA, ARF, Chemo, Hep., AIDS, mental health diagnosis, sleep apnea, morbid obesity)? @ -[None] Was patient admitted / discharged? Hospital course, mention meds given and route, prescriptions, significant lab abnormalities, going to OR and other pertinent info. @ -[Admitted Undiagnosed new problem with uncertain prognosis? @ -[No] Drug Therapy requiring intensive monitoring for toxicity (Heparin, Nitro, Insulin, Cardizem)? @ -[No] Were any procedures done? @ -[No] Diagnosis/symptom? @ -[Chronic schizoaffective disorder Acute, or Chronic, or Acute on Chronic? @ -[Chronic Uncomplicated (without systemic symptoms) or Complicated (systemic symptoms)? @ -Uncomplicated Side effects of treatment? @ -[No] Exacerbation, Progression, or Severe Exacerbation? @ -[No] Poses a threat to life or bodily function? How? (Chest pain, [place], [place], pneumonia, PE, COPD, DKA, ARF, appy, cholecystitis, CVA, Diverticulitis, Homicidal, Suicidal, threat to staff... and all critical care pts) @ -[No] - Lab Data Lab Results 02/09/23 Range/Units 18:20 Coronavirus (PCR) Not Detected (Not Detectd) Disposition Clinical Impression: Schizoaffective disorder, bipolar type Disposition[facility] Condition: Fair Is patient prescribed a controlled substance at d/c from ED?: No
[2023-02-09] MEDS ORDERED: GABAPENTIN 400 MG CAP PO STA (17:44)
[2023-02-09] MEDS ORDERED: MAG HYDROX/AL HYDROX/SIMETH 30 ML CUP PO PRN (19:41)
[2023-02-09] MEDS ORDERED: MAGNESIUM HYDROXIDE 2,400 MG/10 ML CUP PO PRN (19:41)
[2023-02-09] MEDS ORDERED: ACETAMINOPHEN TAB 325 MG TAB PO PRN (19:41)
[2023-02-09] MEDS ORDERED: OLANZapine 10 MG VIAL IM PRN (19:47)
[2023-02-09] MEDS ORDERED: hydrOXYzine HCL 50 MG/ML 1 ML VIAL IM PRN (19:47)
[2023-02-09] MEDS: carBAMazepine 200 MG TAB PO SCH (20:29)
[2023-02-09] MEDS: OLANZapine 10 MG TAB PO SCH (20:29)
[2023-02-09] MEDS: hydrOXYzine pamoate 25 MG CAP PO PRN (20:31)
[2023-02-09] MEDS ORDERED: MIRTAZAPINE 15 MG TAB PO SCH (21:00)
[2023-02-09] MEDS ORDERED: cloZAPine 25 MG TAB PO SCH (21:00)
[2023-02-10] MEDS: carBAMazepine 200 MG TAB PO SCH ×2 (08:45→20:56)
[2023-02-10] MEDS: hydrOXYzine pamoate 25 MG CAP PO PRN ×3 (08:46→21:05)
[2023-02-10] MEDS: NICOTINE 14MG/24HR PATCH TRANSDERM SCH (08:50)
--- NOTE | 2023-02-10 13:13 | P.HP ---
Psychiatric H&P - . H&P Date: 02/10/23 History & Physical: Allergies Allergy/AdvReac Type Severity Reaction Status Date / Time aripiprazole [From Abilify] Allergy Unknown Verified 02/09/23 16:42 divalproex sodium Allergy Vomiting Verified 02/09/23 16:42 [From Depakote] propoxyphene Allergy Unknown Verified 02/09/23 16:42 [From Darvocet-N] ziprasidone [From Geodon] Allergy Unknown Verified 02/09/23 16:42 fluphenazine enanthate AdvReac Severe Trismus Verified 02/09/23 16:42 [From Prolixin] fluphenazine HCl AdvReac Lockjaw Verified 02/09/23 16:42 [From Prolixin] risperidone AdvReac Nausea & Verified 02/09/23 16:42 Vomiting Vital Signs Temp 98.2 F 02/09/23 20:08 Pulse 107 H 02/09/23 20:08 Resp 17 02/09/23 20:08 BP 140/84 02/09/23 20:08 Pulse Ox 98 02/09/23 20:08 FiO2 Intake & Output 02/09/23 02/10/23 02/10/23 18:59 06:59 18:59 Weight 83.007 kg 80.286 kg Laboratory Last Values Coronavirus (PCR) Not Detected (Not Detectd) 02/09/23 18:20 02/10/23 13:13 IDENTIFYING DATA: Patient is a 32-year-old single, unemployed, male with significant history of schizoaffective disorder, bipolar type, ESVIN, methamphetamine use disorder, and cannabis use disorder, presents to our hospital on 02/09/2023 on a noncompliance order by his ACT team. HPI: Patient presented to the hospital on 02/09/2023 for a noncompliance order f or mental health evaluation. The patient was on Clozaril but missed the last 2 days of his medications. The ACT team could not locate him and they would call however the patient would not comply. The patient was recently changed back to the Risperdal injection due to concerns that he is nonadherent with his Clozaril. On 02/09/2023, the patient was evaluated for medication review at [facility] however continued to be noncompliant and refusing his injectable Risperdal. He was therefore since the emergency department for stabilization. Of note, the patient has been noted to be doing well on Clozaril when he is adherent. Upon evaluation by this provider, the patient is currently not endorsing any suicidal or homicidal ideation, intention, and/or plan. He is not reporting any auditory or visual hallucinations. He is denying any paranoia or other delusions. He expresses that he has been much happier with his Clozaril as the Risperdal injections have been causing him stomach issues and other physical complaints. He reports that he is scheduled to see his neurologist soon so that he may get back on gabapentin. The patient reports that he missed his last few days of ACT meetings because he was searching for housing and was at a republican. He does report that he has been using marijuana on occasion however denies any other drug use. He denies any alcohol or tobacco use. He is agreeable to the admission and restarting Clozaril. PAST PSYCHIATRIC HISTORY: Patient has previous diagnoses of schizoaffective disorder, anxiety, and polysubstance abuse. The patient has had numerous psych otropic medication regimens including Zyprexa, Vistaril, gabapentin, Klonopin, Abilify, Prolixin, Invega, Risperdal, Geodon, Haldol, Artane, Saphris, Ambien, Wellbutrin, and Elavil. The patient has been reportedly doing well with Clozaril, Zyprexa, and Remeron. He has had numerous psychiatric hospitalizations and was most recently at [facility] in November and during that time transition the patient to Risperdal Consta. Patient denies any history of suicide attempts in the past. PMH: Past Medical History: Seizure Disorder Additional Past Medical History / Comment(s): Schizophrenia, right arm fracture, degenerative disc to lower back, and right wrist plate and screws History of Any Multi-Drug Resistant Organisms: None Reported Past Surgical History: Orthopedic Surgery Additional Past Surgical History / Comment(s): mouth surgery, reduction of right arm fracture. Past Anesthesia/Blood Transfusion Reactions: No Reported Reaction Past Psychological History: Anxiety, Panic Disorder, Schizophrenia Smoking Status: Former smoker Past Alcohol Use History: Rare Past Drug Use History: Marijuana, Methamphetamine ALLERGIES: Allergies Allergy/AdvReac Type Severity Reaction Status Date / Time aripiprazole [From Abilify] Allergy Unknown Verified 02/09/23 16:42 divalproex sodium Allergy Vomiting Verified 02/09/23 16:42 [From Depakote] propoxyphene Allergy Unknown Verified 02/09/23 16:42 [From Darvocet-N] ziprasidone [From Geodon] Allergy Unknown Verified 02/09/23 16:42 fluphenazine enanthate AdvReac Severe Trismus Verified 02/09/23 16:42 [From Prolixin] fluphenazine HCl AdvReac Lockjaw Verified 02/09/23 16:42 [From Prolixin] risperidone AdvReac Nausea & Verified 02/09/23 16:42 Vomiting CHEMICAL DEPENDENCY HISTORY: The patient has not provided any urinary drug screen. He however denies any substance abuse aside from marijuana. FAMILY PSYCHIATRIC/SUBSTANCE USE HISTORY: Mother has reported psychiatric illness SOCIAL HISTORY: Patient currently resides in a hotel. He has a guardian. He reports that he is unemployed. He is single, never , and has no children.. MENTAL STATUS EXAM: General Appearance: Patient appears to be stated age is alert, directable, and attempts to cooperate. Patient appears to have fair hygiene and grooming. Behavior: Patient is seated without any agitated behavior. Eye contact is appropriate. Patient displays normal psychomotor activity. Speech: Patient's speech is fluent and nonpressured. Mood/Affect: Patient reports their mood is "great", affect is congruent and euthymic Suicidality/Homicidality: Patient denies having any suicidal or homicidal ideation. Perceptions: Patient denies any visual hallucinations and denies any auditory hallucinations Though content/process: There is no evidence of any delusional thought content and thought process is linear and goal-directed. Memory and concentration: AOX3, grossly intact for the purposes of this session. Can spell "WORLD" backwards Judgment and insight: poor STRENGTHS/WEAKNESSES: strength is that patient is resilient. Weakness is that patient is intermittently adherent with medications. INTELLECT: average IMPRESSIONS: Schizoaffective disorder, bipolar type Cannabis use disorder Methamphetamine use disorder, in remission Noncompliance with treatment PLAN: -Patient is admitted under involuntary status to [facility] for stabilization of psychiatric symptoms and safety. Patient is currently under court order. -Medications : Zyprexa 10 mg daily at bedtime with stabilization/psychosis - likely taper as clozaril increases. Gabapentin 400 mg by mouth 3 times a day for neuropathy Elavil 50 mg by mouth at bedtime for depression/anxiety Discontinue Remeron Restart Clozaril 100 mg by mouth at bedtime for psychosis/mood stabilization Continue Tegretol 200 mg by mouth twice a day for seizure disorder/mood -Vistaril and Zyprexa PRN for agitation/aggression -Patient was counselled on substance abuse and desired to cut back on use -Patient was informed of the risks, benefits and side effects of the medication and patient verbally consented to taking the medications. Patient signed med consent form and was placed in chart. -Internal Medicine consult to perform medical evaluation and physical. -SW on board for discharge planning. Encourage patient to participate in groups to work on coping skills. 02/10/23 13:13
--- NOTE | 2023-02-10 14:15 | P.CONS ---
History of Present Illness - Reason for Consult Sinus tachycardia - History of Present Illness Patient is a 32-year-old male with history of skin affected disorder, bipolar disorder, generalized anxiety disorder man to it amphetamine use in the past and cannabis use. Admitted to the hospital due to noncompliance. Patient is admitted to psychiatric floor patient is comparing of headache he states it's secondary to his migraine which she was diagnosed many years ago patient does take carbamazepine, gabapentin which does help with migraine patient is asking for Fioricet. Patient is tachycardic, patient is on metoprolol which was not reordered. REVIEW OF SYSTEMS: CONSTITUTIONAL: No fever, no malaise, no fatigue. HEENT: No recent visual problems or hearing problems. Denied any sore throat. CARDIOVASCULAR: No chest pain, orthopnea, PND, no palpitations, no syncope. PULMONARY: No shortness of breath, no cough, no hemoptysis. GASTROINTESTINAL: No diarrhea, no nausea, no vomiting, no abdominal pain. NEUROLOGICAL: No headaches, no weakness, no numbness. HEMATOLOGICAL: Denies any bleeding or petechiae. GENITOURINARY: Denies any burning micturition, frequency, or urgency. MUSCULOSKELETAL/RHEUMATOLOGICAL: Denies any joint pain, swelling, or any muscle pain. ENDOCRINE: Denies any polyuria or polydipsia. The rest of the 14-point review of systems is negative. PHYSICAL EXAMINATION: GENERAL: The patient is alert and oriented x3, not in any acute distress. Well developed, well nourished. HEENT: Pupils are round and equally reacting to light. EOMI. No scleral icterus. No conjunctival pallor. Normocephalic, atraumatic. No pharyngeal erythema. No thyromegaly. CARDIOVASCULAR: S1 and S2 present. No murmurs, rubs, or gallops. PULMONARY: Chest is clear to auscultation, no wheezing or crackles. ABDOMEN: Soft, nontender, nondistended, normoactive bowel sounds. No palpable o rganomegaly. MUSCULOSKELETAL: No joint swelling or deformity. EXTREMITIES: No cyanosis, clubbing, or pedal edema. NEUROLOGICAL: Gross neurological examination did not reveal any focal deficits. SKIN: No rashes. Assessment and plan -Complaints of migraine headache: Patient is appropriately resumed on Compazine and gabapentin teen, additionally will add in nonsteroidal anti-inflammatory medication as needed. Fioricet is not recommended for migraine any more. -Cannabis use disorder -Peripheral neuropathy for which patient uses gabapentin which was resumed -Schizoaffective disorder And-sinus tachycardia reflux tachycardia patient will be resumed on metoprolol DVT prophylaxis: Past Medical History Past Medical History: Seizure Disorder Additional Past Medical History / Comment(s): Schizophrenia, right arm fracture, degenerative disc to lower back, and right wrist plate and screws History of Any Multi-Drug Resistant Organisms: None Reported Past Surgical History: Orthopedic Surgery Additional Past Surgical History / Comment(s): mouth surgery, reduction of right arm fracture. Past Anesthesia/Blood Transfusion Reactions: No Reported Reaction Past Psychological History: Anxiety, Panic Disorder, Schizophrenia Smoking Status: Former smoker Past Alcohol Use History: Rare Past Drug Use History: Marijuana, Methamphetamine - Past Family History Mother Brother(s) Family Medical History: Unable to Obtain Medications and Allergies Home Medications Medication Instructions Recorded Confirmed Type Metoprolol Succinate (ER) [Toprol 50 mg PO DAILY 02/09/23 02/09/23 History Xl] Mirtazapine [Remeron] 15 mg PO HS 02/09/23 02/09/23 History OLANZapine [ZyPREXA] 10 mg PO HS 02/09/23 02/09/23 History carBAMazepine [TEGretol] 200 mg PO BID 02/09/23 02/09/23 History hydrOXYzine pamoate [Vistaril] 50 mg PO Q6H PRN 02/09/23 02/09/23 History risperiDONE MICROSPHERES 50 mg IM Q14D 02/09/23 02/09/23 History [RisperDAL Consta] Allergies Allergy/AdvReac Type Severity Reaction Status Date / Time aripiprazole [From Abilify] Allergy Unknown Verified 02/09/23 16:42 divalproex sodium Allergy Vomiting Verified 02/09/23 16:42 [From Depakote] propoxyphene Allergy Unknown Verified 02/09/23 16:42 [From Darvocet-N] ziprasidone [From Geodon] Allergy Unknown Verified 02/09/23 16:42 fluphenazine enanthate AdvReac Severe Trismus Verified 02/09/23 16:42 [From Prolixin] fluphenazine HCl AdvReac Lockjaw Verified 02/09/23 16:42 [From Prolixin] risperidone AdvReac Nausea & Verified 02/09/23 16:42 Vomiting Physical Exam Vitals: Vital Signs Temp Pulse Pulse Resp BP BP Pulse Ox 02/09/23 20:08 98.2 F 107 H 17 140/84 98 02/09/23 15:45 98.2 F 109 H 18 126/76 98 Intake and Output 02/09/23 02/10/23 02/10/23 22:59 06:59 14:59 Other: Weight 80.286 kg
[2023-02-10] MEDS: GABAPENTIN 400 MG CAP PO SCH ×2 (15:44→20:57)
[2023-02-10] MEDS: NAPROXEN 250 MG TAB PO PRN (15:44)
[2023-02-10] MEDS: METOPROLOL SUCCINATE (ER) 50 MG TAB.ER.24H PO SCH (15:48)
[2023-02-10] MEDS ORDERED: GABAPENTIN 300 MG CAP PO SCH (16:00)
[2023-02-10] MEDS: AMITRIPTYLINE HCL 50 MG TAB PO SCH (20:56)
[2023-02-10] MEDS: OLANZapine 10 MG TAB PO SCH (20:57)
[2023-02-10] MEDS ORDERED: cloZAPine 100 MG TAB PO SCH (21:00)
[2023-02-10] MEDS ORDERED: cloZAPine 25 MG TAB PO SCH (21:00)
[2023-02-11] MEDS: NICOTINE 14MG/24HR PATCH TRANSDERM SCH (08:52)
[2023-02-11] MEDS: carBAMazepine 200 MG TAB PO SCH ×2 (08:52→20:13)
[2023-02-11] MEDS: METOPROLOL SUCCINATE (ER) 50 MG TAB.ER.24H PO SCH (08:52)
[2023-02-11] MEDS: GABAPENTIN 400 MG CAP PO SCH ×3 (08:52→20:57)
[2023-02-11] MEDS: hydrOXYzine pamoate 25 MG CAP PO PRN ×3 (08:53→21:35)
[2023-02-11] MEDS: NAPROXEN 250 MG TAB PO PRN ×2 (08:54→17:56)
--- NOTE | 2023-02-11 18:45 | P.PN ---
Progress Note - Text Progress Note Date: 02/11/23 Interval History: Patient was seen attempting to speak with this provider several times and was agreeable to speak with teletypewriter operator in the office. He states that he became overly sedated with the dose of Clozaril. This provider discussed that she had already lowered this dose. Patient was visibly happy with this and then proceeded to request Neurontin being increased. Patient is quite medication focused. He states that he is doing "not bad". He reports having fair energy currently although he states that it was significantly reduced earlier this morning. He states that he likes the Clozaril compared to the Risperdal. He says he does not like injections. He reports fair appetite and denies other concerns. At this time patient denies any suicidal or homicidal ideations, intent or plan. Patient denies any auditory, visual hallucinations and denies any paranoia or delusions. Patient denies any other side effects from the medications and has been compliant with meds. Mental Status Exam: General Appearance: Patient appears to be stated age is alert, directable, and attempts to cooperate. Patient appears to have fair hygiene and grooming. Behavior: Patient is seated without any agitated behavior. Eye contact is appropriate. Patient displays normal psychomotor activity. Speech: Patient's speech is fluent and nonpressured. Mood/Affect: Patient reports their mood is "not bad", affect is congruent and euthymic Suicidality/Homicidality: Patient denies having any suicidal or homicidal ideation. Perceptions: Patient denies any visual hallucinations and denies any auditory hallucinations Though content/process: There is no evidence of any delusional thought content and thought process is linear and goal-directed. Fixated on meds Memory and concentration: AOX3, grossly intact for the purposes of this session. Can spell "WORLD" backwards Judgment and insight: poor Assessment Schizoaffective disorder, bipolar type Cannabis use disorder Methamphetamine use disorder, in remission Noncompliance with treatment PLAN: -Patient is admitted under involuntary status to [facility] for stabilization of psychiatric symptoms and safety. Patient is currently under court order. -Medications : Zyprexa 10 mg daily at bedtime with stabilization/psychosis - likely taper as clozaril increases. Gabapentin 400 mg by mouth 3 times a day for neuropathy Elavil 50 mg by mouth at bedtime for depression/anxiety Decrease Clozaril to 25 mg by mouth at bedtime for psychosis/mood stabilization. ANC on 02/01/23 prior to Clozaril was 3.7 per [facility] records. Continue Tegretol 200 mg by mouth twice a day for seizure disorder/mood -Vistaril and Zyprexa PRN for agitation/aggression -Patient was counselled on substance abuse and desired to cut back on use -Patient was informed of the risks, benefits and side effects of the medication and patient verbally consented to taking the medications. Patient signed med consent form and was placed in chart. -Internal Medicine consult to perform medical evaluation and physical. -SW on board for discharge planning. Encourage patient to participate in groups to work on coping skills.
[2023-02-11] MEDS: OLANZapine 10 MG TAB PO SCH (20:13)
[2023-02-11] MEDS: AMITRIPTYLINE HCL 50 MG TAB PO SCH (20:13)
[2023-02-11] MEDS ORDERED: cloZAPine 25 MG TAB PO SCH (21:00)
[2023-02-12] MEDS: hydrOXYzine pamoate 25 MG CAP PO PRN ×3 (02:08→15:57)
[2023-02-12] MEDS: carBAMazepine 200 MG TAB PO SCH ×2 (08:01→20:18)
[2023-02-12] MEDS: GABAPENTIN 400 MG CAP PO SCH ×3 (08:02→20:18)
[2023-02-12] MEDS: METOPROLOL SUCCINATE (ER) 50 MG TAB.ER.24H PO SCH (08:02)
[2023-02-12] MEDS: NAPROXEN 250 MG TAB PO PRN (12:14)
[2023-02-12 13:56] LABS: Amorphous Sediment,Urine Moderate /hpf; Appearance,Urine Cloudy (Clear); Bacteria,Urine Occasional /hpf; Bilirubin,Urine Negative (Negative); Blood,Urine Negative (Negative); Color,Urine Colorless; Glucose,Urine (UA) Negative (Negative); Ketones,Urine Negative (Negative); Leukocyte Esterase,Urine Negative (Negative); Nitrite,Urine Negative (Negative); Protein,Urine 1+ (Negative); Specific Gravity,Urine 1.002 (1.001-1.035); Urobilinogen,Urine <2.0 mg/dL (<2.0); WBC,Urine <1 /hpf (0-5)
--- NOTE | 2023-02-12 15:03 | P.PN ---
Progress Note - Text Progress Note Date: 02/12/23 Interval History: Patient was seen attempting to speak with this provider several times and was agreeable to speak with pattern chart writer in the office. He states that he is feeling significantly better with the decreased dose of Clozaril. Of note, patient appears to be able to speak more linearly and appears to be clearer than in the past. He requests for the Neurontin to be increased but this provider discussed that that is not indicated at this time. He states that he is doing "much better". He states that he hopes to remain compliant on Clozaril. He denies feeling overly sedated this morning and states that he had fair energy to participate in group. He was hesitant for the Clozaril to be increased but this provider discussed with him that this will need to be increased. He reports fair appetite and denies other concerns. He states he is also concerned about weight gain as a potential side effect. At this time patient denies any suicidal or homicidal ideations, intent or plan. Patient denies any auditory, visual hallucinations and denies any paranoia or delusions. Patient denies any side effects from the medications and has been compliant with meds. Mental Status Exam: General Appearance: Patient appears to be stated age is alert, directable, and attempts to cooperate. Patient appears to have fair hygiene and grooming. Behavior: Patient is seated without any agitated behavior. Eye contact is appropriate. Patient displays normal psychomotor activity. Calmer Speech: Patient's speech is fluent and nonpressured. Mood/Affect: Patient reports their mood is "much better", affect is congruent and euthymic Suicidality/Homicidality: Patient denies having any suicidal or homicidal ideation. Perceptions: Patient denies any visual hallucinations and denies any auditory hallucinations Though content/process: There is no evidence of any delusional thought content and thought process is linear and goal-directed. Memory and concentration: AOX3, grossly intact for the purposes of this session. Can spell "WORLD" backwards Judgment and insight: poor Assessment Schizoaffective disorder, bipolar type Cannabis use disorder Methamphetamine use disorder, in remission Noncompliance with treatment PLAN: -Patient is admitted under involuntary status to [facility] for stabilization of psychiatric symptoms and safety. Patient is currently under court order. -Medications : Zyprexa 10 mg daily at bedtime with stabilization/psychosis - likely taper as clozaril increases. Gabapentin 400 mg by mouth 3 times a day for neuropathy Elavil 50 mg by mouth at bedtime for depression/anxiety Increase Clozaril to 50 mg by mouth at bedtime for psychosis/mood stabilization. ANC on 02/01/23 prior to Clozaril was 3.7 per [facility] records. Continue Tegretol 200 mg by mouth twice a day for seizure disorder/mood -Vistaril and Zyprexa PRN for agitation/aggression -Patient was counselled on substance abuse and desired to cut back on use -Patient was informed of the risks, benefits and side effects of the medication and patient verbally consented to taking the medications. Patient signed med consent form and was placed in chart. -Internal Medicine consult to perform medical evaluation and physical. -SW on board for discharge planning. Encourage patient to participate in groups to work on coping skills.
[2023-02-12] MEDS: OLANZapine 10 MG TAB PO SCH (20:18)
[2023-02-12] MEDS: AMITRIPTYLINE HCL 50 MG TAB PO SCH (20:18)
[2023-02-12] MEDS: cloZAPine 25 MG TAB PO SCH (20:18)
[2023-02-12 22:33] LABS: Urine Alcohol Negative (Negative); Urine Barbiturate Negative (Negative); Urine Cocaine Negative (Negative); Urine Methadone Negative (Negative); Urine Opiates Negative (Negative); Urine Phencyclidine Negative (Negative)
[2023-02-13] MEDS: carBAMazepine 200 MG TAB PO SCH ×2 (09:04→20:29)
[2023-02-13] MEDS: METOPROLOL SUCCINATE (ER) 50 MG TAB.ER.24H PO SCH ×2 (09:04→09:06)
[2023-02-13] MEDS: GABAPENTIN 400 MG CAP PO SCH ×3 (09:04→20:29)
[2023-02-13] MEDS: NAPROXEN 250 MG TAB PO PRN ×3 (09:07→20:30)
[2023-02-13] MEDS: hydrOXYzine pamoate 25 MG CAP PO PRN ×3 (09:08→21:06)
[2023-02-13] MEDS: OLANZapine 10 MG TAB PO SCH (20:29)
[2023-02-13] MEDS: cloZAPine 25 MG TAB PO SCH (20:29)
[2023-02-13] MEDS: AMITRIPTYLINE HCL 50 MG TAB PO SCH (20:29)
[2023-02-14 07:06] VITALS: BP 131/81; PULSE 80; RESP 14; TEMP 97.4
[2023-02-14] MEDS: GABAPENTIN 400 MG CAP PO SCH (08:39)
[2023-02-14] MEDS: carBAMazepine 200 MG TAB PO SCH (08:39)
[2023-02-14] MEDS: NAPROXEN 250 MG TAB PO PRN (08:40)
[2023-02-14] MEDS: METOPROLOL SUCCINATE (ER) 50 MG TAB.ER.24H PO SCH (08:40)
[2023-02-14] MEDS: hydrOXYzine pamoate 25 MG CAP PO PRN (08:40)
--- NOTE | 2023-02-14 13:11 | P.DS ---
Providers Date of admission: 02/09/23 19:38 Expected date of discharge: 02/14/23 Attending physician: José Vigil MD Consults: 02/09/23 19:41 Consult Physician Routine Consulting Provider: Adela Mendosa Consult Reason/Comments: H&P Do you want consulting provider notified?: Yes, Notify in am Primary care physician: Stated None - Discharge Diagnosis(es) (1) Nonadherence to medical treatment Status: Acute Priority: High (2) Schizoaffective disorder, bipolar type Status: Acute Priority: High (3) Cannabis abuse Status: Chronic Priority: Medium (4) Methamphetamine use disorder, moderate, in early remission Status: Chronic Priority: Medium Hospital Course: Admission HPI: Patient is a 32-year-old single, unemployed, male with significant history of schizoaffective disorder, bipolar type, ESVIN, methamphetamine use disorder, and cannabis use disorder, presents to our hospital on 02/09/2023 on a noncompliance order by his ACT team. Patient presented to the hospital on 02/09/2023 for a noncompliance order for mental health evaluation. The patient was on Clozaril but missed the last 2 days of his medications. The ACT team could not locate him and they would call however the patient would not comply. The patient was recently changed back to the Risperdal injection due to concerns that he is nonadherent with his Clozaril. On 02/09/2023, the patient was evaluated for medication review at [facility] however continued to be noncompliant and refusing his injectable Risperdal. He was therefore since the emergency department for stabilization. Of note, the patient has been noted to be doing well on Clozaril when he is adherent. Upon evaluation by this provider, the patient is currently not endorsing any suicidal or homicidal ideation, intention, and/or plan. He is not reporting any auditory or visual hallucinations. He is denying any paranoia or other delusions. He expresses that he has been much happier with his Clozaril as the Risperdal injections have been causing him stomach issues and other physical complaints. He reports that he is scheduled to see his neurologist soon so that he may get back on gabapentin. The patient reports that he missed his last few days of ACT meetings because he was searching for housing and was at a constitution party. He does report that he has been using marijuana on occasion however denies any other drug use. He denies any alcohol or tobacco use. He is agreeable to the admission and restarting Clozaril. Patient has previous diagnoses of schizoaffective disorder, anxiety, and polysubstance abuse. The patient has had numerous psychotropic medication regimens including Zyprexa, Vistaril, gabapentin, Klonopin, Abilify, Prolixin, Invega, Risperdal, Geodon, Haldol, Artane, Saphris, Ambien, Wellbutrin, and Elavil. The patient has been reportedly doing well with Clozaril, Zyprexa, and Remeron. He has had numerous psychiatric hospitalizations and was most recently at [facility] in November and during that time transition the patient to [facility]. Patient denies any history of suicide attempts in the past. Hospital course: Upon admission to the unit patient was initially presenting as calm, cooperative, well kempt, and directable. Patient was directable and agreeable to commence treatment. Patient got along well with other patients on the unit and followed unit protocol. Patient was compliant with the medications and denied any side effects throughout hospital course. Patient was started on Zyprexa and Clozaril for management of psychosis and mood stabilization. He is also continued on his Tegretol. He was restarted on Elavil for depression/anxiety and gabapentin for neuropathy with the agreement that he follows up with his outpatient appointments consistently. The patient also reported that he has an appointment with his neurologist set up on 02/28/2023. Patient spoke of his stressors and engaged in therapy both group and individual. Patient was also seen by medical team for history and physical exam. Over the course of the hospitalization, the patient remained calm, directable, and cooperative. He was not demanding of any medications compared to his previous admission. He did express a desire to continue with Clozaril so that he is off his long-acting injectable medication. We discussed at length that should he refuse to take any long-acting injectable medications, or refuse to follow-up with his outpatient appointments with [facility], who long-acting injectable would have to be administered during his next inpatient admission. He acknowledges this. The patient reports that he was using marijuana and was counseled at great length on abstaining from all substances including tobacco, alcohol, marijuana, and all illicit drugs. On the day of discharge, the patient is not reporting any suicidal or homicidal ideation, intention, and/or plan. He is not reporting any auditory or visual hallucinations. He reports no paranoia or other delusions. He denies any issues regarding his sleep or his appetite. He states that he only needs 2 weeks worth of his gabapentin because he will be following up with his outpatient neurologist who would manage this medication. Initially, this providers to provide him with 4 weeks however the patient refuses this stating that he has rules to follow with his neurologist. The patient was counseled at length on the importance of medication adherence and appropriate outpatient follow-up. We discussed at length that he is under court order and that if he refuses treatment or misses appointments, he would be really administered the long-acting injectable medication. As the patient no longer met criteria for continued inpatient psychiatric hospitalization, he was subsequently discharged. Mental status exam: General Appearance: Patient appears to be stated age is alert, pleasant, and cooperative. Patient is in no acute distress and has fair hygiene and grooming Behavior: Patient is calmly seated without any agitated behavior. Speech: Patient's speech is fluent and nonpressured. Mood/Affect: Patient reports their mood is "feeling good, this is the best I felt", affect is congruent and euthymic to bright. Suicidality/Homicidality: Patient denies having any suicidal or homicidal ideation intent or plan. Perceptions: Patient denies any auditory or visual hallucinations. Though content/process: There is no evidence of any delusional thought content and thought process is linear and goal-directed. Patient is future and goal oriented. Memory and concentration: AOX3, grossly intact for the purposes of this session. Can spell "WORLD" backwards correctly. Judgment and insight: Improved with guarded prognosis Impression: Schizoaffective disorder, bipolar type Cannabis use disorder Methamphetamine use disorder, in remission Noncompliance with treatment Plan: -Continue with discharge today as patient has improved and stabilized psychiatrically and is not currently an imminent threat to himself and/or others. Patient will remain at chronically elevated risk due to his history of nonadherence with treatment and substance use. -Continue medications: Zyprexa 10 mg by mouth at bedtime with civilization/psychosis Clozaril 50 mg by mouth at bedtime for mood stabilization/psychosis - patient is on dual antipsychotic treatment. As Clozaril was titrated, recommend tapering of Zyprexa. Tegretol 200 mg by mouth twice a day for mood stabilization -discussed with patient at length if he does not follow with his court order we will go back to [facility]. Gabapentin 800 mg by mouth 3 times a day for 14 days Elavil 50 mg by mouth at bedtime for depression/anxiety/migraine -Patient was counseled on the need for medication compliance and appropriate follow-up at mental health and also primary care for medical issues. Patient verbalized understanding and agreed. -Social work to arrange for and conduct family meeting to ensure safety upon discharge and answer any questions/concerns. Social work also to arrange for patients follow up appointments with [facility] for psychiatric care along with follow up with primary care provider. -Patient counseled on abstaining from recreational drugs and marijuana and alcohol. Was informed/educated on the adverse effects on their physical and mental health. Patient verbally agreed and understood. -Patient was instructed to return to the hospital or seek immediate medical care if their psychiatric or medical symptoms do worsen or reoccur. -Psychoeducation and supportive therapy provided to patient. Risks and benefits of pharmacological treatment versus the risks and benefits of nontreatment weighed and discussed. Informed consent discussion held. Common side effects of psychotropics discussed such as, but not limited to headache, GI disturbance, sexual dysfunction, movement disorders, sedation, and orthostatic hypotension. Life threatening and blackbox warnings of prescribed medications also discussed. Potential risks of operating a vehicle or heavy machinery discussed with patient at length. Advised on importance of compliance and a reliable and responsible manner. Patient advised to review FDA consumer labeling of all medications prior to taking. Patient verbalized understanding of potential risks, and agrees with current treatment plan. Patient advised to medically contact physician/emergency personnel if any acute changes in condition occur. Vital Signs Temp 97.4 F L 02/14/23 07:05 Pulse 80 02/14/23 07:05 Resp 14 02/14/23 07:05 BP 131/81 02/14/23 07:05 Pulse Ox 97 02/13/23 11:14 FiO2 Laboratory Results Urine Color Colorless 02/12/23 12:49 Urine Appearance Cloudy (Clear) 02/12/23 12:49 Urine pH 7.0 (5.0-8.0) 02/12/23 12:49 Ur Specific [place] 1.002 (1.001-1.035) 02/12/23 12:49 Urine Protein 1+ (Negative) H 02/12/23 12:49 Urine Glucose (UA) Negative (Negative) 02/12/23 12:49 Urine Ketones Negative (Negative) 02/12/23 12:49 Urine Blood Negative (Negative) 02/12/23 12:49 Urine Nitrite Negative (Negative) 02/12/23 12:49 Urine Bilirubin Negative (Negative) 02/12/23 12:49 Urine Urobilinogen <2.0 mg/dL (<2.0) 02/12/23 12:49 Ur Leukocyte Esterase Negative (Negative) 02/12/23 12:49 Urine WBC <1 /hpf (0-5) 02/12/23 12:49 Amorphous Sediment Moderate /hpf (None) H 02/12/23 12:49 Urine Bacteria Occasional /hpf (None) H 02/12/23 12:49 Urine Opiates Screen Negative (Negative) 02/12/23 12:49 Urine Methadone Screen Negative (Negative) 02/12/23 12:49 Ur Propoxyphene Screen Negative (Negative) 02/12/23 12:49 Urine Barbiturates Negative (Negative) 02/12/23 12:49 Ur Phencyclidine Scrn Negative (Negative) 02/12/23 12:49 Ur Amphetamine Screen Negative (Negative) 02/12/23 12:49 U Benzodiazepines Scrn Negative (Negative) 02/12/23 12:49 Urine Cocaine Screen Negative (Negative) 02/12/23 12:49 U Cannabinoids Screen Negative (Negative) 02/12/23 12:49 Urine Alcohol Negative (Negative) 02/12/23 12:49 Coronavirus (PCR) Not Detected (Not Detectd) 02/09/23 18:20 Allergies Allergy/AdvReac Type Severity Reaction Status Date / Time aripiprazole [From Abilify] Allergy Unknown Verified 02/09/23 16:42 divalproex sodium Allergy Vomiting Verified 02/09/23 16:42 [From Depakote] propoxyphene Allergy Unknown Verified 02/09/23 16:42 [From Darvocet-N] ziprasidone [From Geodon] Allergy Unknown Verified 02/09/23 16:42 fluphenazine enanthate AdvReac Severe Trismus Verified 02/09/23 16:42 [From Prolixin] fluphenazine HCl AdvReac [place] Verified 02/09/23 16:42 [From Prolixin] risperidone AdvReac Nausea & Verified 02/09/23 16:42 Vomiting Patient Condition at Discharge: Stable Plan - Discharge Summary New Discharge Prescriptions: New Amitriptyline HCl [Elavil] 50 mg PO HS 30 Days #30 tab Gabapentin [Neurontin] 800 mg PO TID 14 Days #84 cap cloZAPine [Clozaril] 50 mg PO HS 30 Days #60 tab carBAMazepine [TEGretol] 200 mg PO BID 30 Days #60 tab OLANZapine [ZyPREXA] 10 mg PO HS 30 Days #30 tab Continue Metoprolol Succinate (ER) [Toprol XL] 50 mg PO DAILY Discontinued risperiDONE MICROSPHERES [RisperDAL Consta] 50 mg IM Q14D carBAMazepine [TEGretol] 200 mg PO BID Mirtazapine [Remeron] 15 mg PO HS OLANZapine [ZyPREXA] 10 mg PO HS hydrOXYzine pamoate [Vistaril] 50 mg PO Q6H PRN PRN Reason: Anxiety Discharge Medication List Metoprolol Succinate (ER) [Toprol XL] 50 mg PO DAILY 02/09/23 [History] Amitriptyline HCl [Elavil] 50 mg PO HS 30 Days #30 tab 02/14/23 [Rx] Gabapentin [Neurontin] 800 mg PO TID 14 Days #84 cap 02/14/23 [Rx] OLANZapine [ZyPREXA] 10 mg PO HS 30 Days #30 tab 02/14/23 [Rx] carBAMazepine [TEGretol] 200 mg PO BID 30 Days #60 tab 02/14/23 [Rx] cloZAPine [Clozaril] 50 mg PO HS 30 Days #60 tab 02/14/23 [Rx] Follow up Appointment(s)/Referral(s): [facility] [Outside] - 02/17/23 10:00 am (02/17/2023 10:00AM - 10:30AM MELBA BARBA ) [facility] [NON-STAFF] - 1 Week Patient Instructions/Handouts: Schizoaffective Disorder (DC), Psychotic Disorder (DC) Activity/Diet/Wound Care/Special Instructions: Avoid the use of street drugs and alcohol. Take all medications as prescribed. When you are in need of refills on your medications, please contact your medical provider and/or outpatient psychiatrist to have this done. Please go to scheduled outpatient appointments for aftercare treatment. If symptoms return or become worse, call the crisis line at and/or go to the nearest emergency room for evaluation. Discharge Disposition: HOME SELF-CARE
--- NOTE | 2023-02-16 17:31 | P.PN ---
Progress Note - Text Progress Note Date: 02/13/23 PROBLEMS: Schizoaffective disorder bipolar type, cannabis use disorder, methamphetamine use disorder in remission, history of noncompliance INTERIM HISTORY: I reviewed the medical record and interviewed the patient. He requested discharge today stating that he is doing well and plans to follow-up with treatment. He denied feeling depressed, anxious or suspicious. He denied that he is experiencing psychotic symptoms such as ideas of reference, paranoia or hallucinations. We discussed his request for discharge and he accepted my explanation that I am not familiar with his treatment, he was admitted on involuntary status and his attending will need to decide whether he is appropriate for discharge. According to the MAR he has been compliant with prescribed medications. He requested an increase in gabapentin stating that he had taken 800 mg 3 times daily in the past. MENTAL STATUS: He presented as a casually groomed male who is pleasant and cooperative. He made eye contact and appeared to attend to the interview. He had a blunted facial expression. He showed no abnormalities psychomotor activity. His speech was spontaneous with normal rate and rhythm. His affect was stable and appropriate. He expressed no suicidal ideation, wishes homicidal ideation. There are no depressive cognitions. He did not express phobias, ideas of reference, paranoid ideation or delusions. His thinking was concrete but associations appeared goal-directed. He did not appear to be responding to internal stimuli. IMPRESSION: He is a 32-year-old male with a history of a major psychiatric illness admitted involuntarily to the psychiatric unit with a history of noncompliance on an outpatient treatment order. Since admission to the unit has been compliant with prescribed medication and is post no management problems. Considering the severity and persistence of his mental illness I will defer the decision for discharge to his attending psychiatrist. PLAN: Increase gabapentin to 800 3 times daily, Continue Zyprexa 10 mg at bedtime, Elavil 50 mg at bedtime, clozapine 50 mg at bedtime and Tegretol 200 mg twice daily, encourage continued participation in therapeutic groups and activities. Evaluate clinical status and response to treatment daily basis. Likely discharge tomorrow.
== END 2023-02-14 12:39 | disposition home or self-care (01) | DRG 885 ==
LOC: EC 15:15 → 3MHU 19:38
PROVIDERS: ADMIT Psychiatry & Neurology Psychiatry; ATTEND Psychiatry & Neurology Psychiatry
DX: F25.0 Schizoaffective disorder, bipolar type (principal); G43.909 Migraine, unspecified, not intractable, without status migrainosus; F12.10 Cannabis abuse, uncomplicated; G62.9 Polyneuropathy, unspecified; G40.909 Epilepsy, unspecified, not intractable, without status epilepticus; F41.1 Generalized anxiety disorder; T42.4X6A Underdosing of benzodiazepines, initial encounter; F41.0 Panic disorder [episodic paroxysmal anxiety]; M51.36 Other intervertebral disc degeneration, lumbar region; F15.21 Other stimulant dependence, in remission; R00.0 Tachycardia, unspecified; Z20.822 Contact with and (suspected) exposure to COVID-19; Z91.128 Patient's intentional underdosing of medication regimen for other reason; Z87.891 Personal history of nicotine dependence; Z79.899 Other long term (current) drug therapy; Z56.0 Unemployment, unspecified
CPT/HCPCS: 80306; 81001; 82075; 87635; 99285

== ENCOUNTER 2023-02-17 11:10 | Inpatient (IN) | payer MEDICARE, MEDICAID ==
--- NOTE | 2023-02-17 12:07 | ED ---
Psych HPI - General Source: patient, RN notes reviewed Mode of arrival: ambulatory Limitations: no limitations <Celine Rodriguez - Last Filed: 02/17/23 17:32> <Hesham Winter - Last Filed: 02/17/23 18:25> - General Chief Complaint: Psychiatric Symptoms Stated Complaint: [facility] sent Time Seen by Provider: 02/17/23 11:38 - History of Present Illness Initial Comments: This is a 32-year-old male who presents to the emergency department for concerns of problems related to his psychiatric medication. Patient was discharged from the mental health unit here 3 days ago. Patient states that he was not given his medication by [facility] and they want him to do injections. However, patient states that he does not want to do injections and feels like his medication is being withheld from him by [facility]. Currently denies any suicidal or homicidal ideations. Denies any fevers, chills, sore throat, cough, dyspnea, chest pain, palpitations, abdominal pain, nausea, vomiting, diarrhea, back pain, or headaches. (Celine Rodriguez) - Related Data Home Medications Medication Instructions Recorded Confirmed Metoprolol Succinate (ER) [Toprol 50 mg PO DAILY 02/09/23 02/17/23 XL] Previous Rx's Medication Instructions Recorded Amitriptyline HCl [Elavil] 50 mg PO HS 30 Days #30 tab 02/14/23 Gabapentin [Neurontin] 800 mg PO TID 14 Days #84 cap 02/14/23 OLANZapine [ZyPREXA] 10 mg PO HS 30 Days #30 tab 02/14/23 carBAMazepine [TEGretol] 200 mg PO BID 30 Days #60 tab 02/14/23 cloZAPine [Clozaril] 50 mg PO HS 30 Days #60 tab 02/14/23 Allergies Allergy/AdvReac Type Severity Reaction Status Date / Time aripiprazole [From Abilify] Allergy Unknown Verified 02/17/23 13:41 divalproex sodium Allergy Vomiting Verified 02/17/23 13:41 [From Depakote] propoxyphene Allergy Unknown Verified 02/17/23 13:41 [From Darvocet-N] ziprasidone [From Geodon] Allergy Unknown Verified 02/17/23 13:41 fluphenazine enanthate AdvReac Severe Trismus Verified 02/17/23 13:41 [From Prolixin] fluphenazine HCl AdvReac Lockjaw Verified 02/17/23 13:41 [From Prolixin] risperidone AdvReac Nausea & Verified 02/17/23 13:41 Vomiting Review of Systems ROS Other: All systems not noted in ROS Statement are negative. <Celine Rodriguez - Last Filed: 02/17/23 17:32> ROS Other: All systems not noted in ROS Statement are negative. <Hesham Winter - Last Filed: 02/17/23 18:25> ROS Statement: Those systems with pertinent positive or pertinent negative responses have been documented in the HPI. Past Medical History Past Medical History: Seizure Disorder Additional Past Medical History / Comment(s): Schizophrenia, right arm fracture, degenerative disc to lower back, and right wrist plate and screws History of Any Multi-Drug Resistant Organisms: None Reported Past Surgical History: Orthopedic Surgery Additional Past Surgical History / Comment(s): mouth surgery, reduction of right arm fracture. Past Anesthesia/Blood Transfusion Reactions: No Reported Reaction Past Psychological History: Anxiety, Panic Disorder, Schizophrenia Smoking Status: Former smoker Past Alcohol Use History: Rare Past Drug Use History: Marijuana, Methamphetamine - Past Family History Mother Brother(s) Family Medical History: Unable to Obtain <Celine Rodriguez - Last Filed: 02/17/23 17:32> General Exam Limitations: no limitations General appearance: alert, in no apparent distress Head exam: Present: atraumatic, normocephalic, normal inspection Respiratory exam: Present: normal lung sounds bilaterally. Absent: respiratory distress, wheezes, rales, rhonchi, stridor Cardiovascular Exam: Present: regular rate, normal rhythm, normal heart sounds. Absent: systolic murmur, diastolic murmur, rubs, gallop, clicks Neurological exam: Present: alert, oriented X3, CN II-XII intact Psychiatric exam: Present: agitated Expanded Focused psych exam: Present: restlessness, flight of ideas, loose associations, other (speaking to himself) Skin exam: Present: warm, dry, intact, normal color. Absent: rash <Celine Rodriguez - Last Filed: 02/17/23 17:32> Course <Hesham Winter - Last Filed: 02/17/23 18:25> Vital Signs 02/17/23 11:35 Temperature 98.2 F Pulse Rate 111 H Respiratory 20 Rate Blood Pressure 118/82 O2 Sat by Pulse 95 Oximetry - Reevaluation(s) Reevaluation #1: 02/17/23 18:25 Medical records reviewed 02/17/23 18:25 Medical clear for psychiatric evaluation (Hesham Winter) Medical Decision Making <Celine Rodriguez - Last Filed: 02/17/23 17:32> <Hesham Winter - Last Filed: 02/17/23 18:25> - Medical Decision Making This is a 32-year-old male who presents to the emergency department for problems related to his mental health medication. Was pt. sent in by a medical professional or institution? @ -No Did you speak to anyone other than the patient for history? @ -No Did you review nursing and triage notes? @ -Yes, and I agree, it is accurate with regards to the patient's symptoms. Were old charts reviewed? @ -No Differential Diagnosis? @ -Differential Mental Health Depression, anxiety, bipolar, psychosis, schizophrenia, borderline personality, situational depression, adjustment disorder, behavioral disorder, brain tumor, malingering, substance abuse, encephalopathy, medication reaction, dementia, hypothyroidism, degenerative neurologic disorder, lupus.... This is not meant to be all-inclusive list EKG interpreted by me (3pts min.)? @ -Not obtained X-rays interpreted by me (1pt min.)? @ -Not obtained CT interpreted by me (1pt min.)? @ -Not obtained U/S interpreted by me (1pt. min.)? @ -Not obtained What testing was considered but not performed? (CT, X-rays, U/S, labs)? Why? @ -None What meds were considered but not given? Why? @ -None Did you discuss the management of the patient with other professionals? @ -Yes, EPS who states that the patient will be admitted back to [facility]. Did you reconcile home meds? @ -No Was smoking cessation discussed for >3mins.? @ -No Was critical care preformed (if so, how long)? @ -No Were there social determinants of health that impacted care today? How? (Homelessness, low income, unemployed, alcoholism, drug addiction, transportation, low edu. Level, literacy, decrease access to med. care, long term, rehab)? @ -No Was there de-escalation of care discussed even if they declined? (Discuss DNR or withdrawal of care, Hospice)? @ -No What co-morbidities impacted this encounter? (DM, HTN, Smoking, COPD, CAD, Cancer, CVA, Hep., AIDS, mental health diagnosis, sleep apnea, morbid obesity)? @ -Schizophrenia Was patient admitted / discharged? @ -Admitted. Upon review of the patient's medical record, he was discharged with 5 medications from here 3 days ago. These are all in the oral form and none of them are injections. The patient is not making sense and it is not entirely clear why he is having difficulty getting these. The patient's nurse spoke with his mother, who states that he has only been taking the Neurontin. States that she usually puts him up in a hotel, however he has been nowhere to be found over the last few days since being discharged. Also states that he seems to be hallucinating again since he is talking to himself. Patient is noted to be actively hallucinating in the examination room, as he is having conversations with himself. Case discussed with EPS, who states that the p atient will be admitted back to [facility]. Undiagnosed new problem with uncertain prognosis? @ -None Drug Therapy requiring intensive monitoring for toxicity (Heparin, Nitro, Insulin, Cardizem)? @ -None Were any procedures done? @ -None Diagnosis/symptom? @ -Schizophrenia Acute, or Chronic, or Acute on Chronic? @ -Chronic Uncomplicated (without systemic symptoms) or Complicated (systemic symptoms)? @ -Complicated Side effects of treatment? @ -None Exacerbation, Progression, or Severe Exacerbation] @ -Exacerbation Poses a threat to life or bodily function? @ -Yes This case was discussed in detail with the attending ED physician. Presentation, findings, and treatment plan discussed in detail as well. (Celine Rodriguez) 32 male to be admitted for psychiatric evaluation and treatment (Hesham Winter) - Lab Data Lab Results 02/17/23 Range/Units 13:23 Coronavirus (PCR) Not Detected (Not Detectd) Disposition <Celine Rodriguez - Last Filed: 02/17/23 17:32> Is patient prescribed a controlled substance at d/c from ED?: No <Hesham Winter - Last Filed: 02/17/23 18:25> Clinical Impression: Schizophrenia, Personality disorder, Chronic schizophrenia, Depression, Nonadherence to medical treatment, Psychiatric complaint, Acute psychosis Disposition: ADMITTED IP TO THIS HOSP Condition: Fair Referrals: None,Stated [Primary Care Provider] - 1-2 days
[2023-02-17] MEDS ORDERED: GABAPENTIN 400 MG CAP PO ONE (18:05)
[2023-02-17] MEDS ORDERED: LORazepam 1 MG TAB PO ONE (18:09)
[2023-02-17 19:20] LABS: Basophils % (A) 1 %; Eosinophils # (A) 0.3 k/uL (0-0.7); Eosinophils % (A) 5 %; HCT 39.1 % (39.0-53.0); HGB 13.3 gm/dL (13.0-17.5); Lymphocytes # (A) 1.3 k/uL (1.0-4.8); Lymphocytes % (A) 21 %; MCH 29.9 pg (25.0-35.0); MCHC 33.9 g/dL (31.0-37.0); MCV 88.1 fL (80.0-100.0); Mean Platelet Volume 6.7; Monocytes # (A) 0.3 k/uL (0-1.0); Monocytes % (A) 5 %; Neutrophils # (A) 4.2 k/uL (1.3-7.7); Neutrophils % (A) 67 %; Platelet Count 280 k/uL (150-450); RBC 4.44 m/uL (4.30-5.90); RDW 13.8 % (11.5-15.5); WBC 6.3 k/uL (3.8-10.6)
[2023-02-17] MEDS ORDERED: MAGNESIUM HYDROXIDE 2,400 MG/10 ML CUP PO PRN (19:37)
[2023-02-17] MEDS ORDERED: LORazepam 2 MG/ML INJ IM PRN (19:44)
[2023-02-17] MEDS: GABAPENTIN 400 MG CAP PO SCH (20:41)
[2023-02-17] MEDS: OLANZapine 10 MG TAB PO SCH (20:41)
[2023-02-17] MEDS: cloZAPine 25 MG TAB PO SCH (20:41)
[2023-02-17] MEDS: carBAMazepine 200 MG TAB PO SCH (20:51)
[2023-02-17] MEDS: AMITRIPTYLINE HCL 50 MG TAB PO SCH (20:51)
[2023-02-18] MEDS: LORazepam 1 MG TAB PO PRN ×4 (01:54→16:37)
[2023-02-18] MEDS: ACETAMINOPHEN TAB 325 MG TAB PO PRN (01:54)
[2023-02-18] MEDS: carBAMazepine 200 MG TAB PO SCH ×2 (08:45→20:20)
[2023-02-18] MEDS: METOPROLOL SUCCINATE (ER) 50 MG TAB.ER.24H PO SCH ×2 (08:45→09:15)
[2023-02-18] MEDS: GABAPENTIN 400 MG CAP PO SCH ×3 (08:47→20:19)
[2023-02-18] MEDS: NICOTINE 14MG/24HR PATCH TRANSDERM SCH (08:53)
[2023-02-18] MEDS: AMITRIPTYLINE HCL 50 MG TAB PO SCH (20:19)
[2023-02-18] MEDS: OLANZapine 10 MG TAB PO SCH (20:19)
[2023-02-18] MEDS: cloZAPine 25 MG TAB PO SCH (20:19)
[2023-02-18] MEDS: clonazePAM 1 MG TAB PO SCH (21:10)
[2023-02-19] MEDS: NICOTINE 14MG/24HR PATCH TRANSDERM SCH (08:00)
[2023-02-19] MEDS: carBAMazepine 200 MG TAB PO SCH ×2 (08:00→19:56)
[2023-02-19] MEDS: METOPROLOL SUCCINATE (ER) 50 MG TAB.ER.24H PO SCH (08:00)
[2023-02-19] MEDS: GABAPENTIN 400 MG CAP PO SCH ×3 (08:01→19:55)
[2023-02-19] MEDS: clonazePAM 1 MG TAB PO SCH ×2 (08:01→19:56)
[2023-02-19] MEDS: OLANZapine 10 MG TAB PO SCH (19:56)
[2023-02-19] MEDS: AMITRIPTYLINE HCL 50 MG TAB PO SCH (19:56)
[2023-02-19] MEDS: cloZAPine 25 MG TAB PO SCH (19:56)
--- NOTE | 2023-02-19 20:57 | P.HP ---
Psychiatric H&P - . H&P Date: 02/18/23 History & Physical: IDENTIFYING DATA: Patient is a 32-year-old single, unemployed, male with significant history of schizoaffective disorder, bipolar type, ESVIN, methamphetamine use disorder, and cannabis use disorder, who is well known to this psychiatric facility and was recently discharged from here on 02/14/2023, and was sent back by [facility] due to wanting changes in his medications. HPI: Patient presented to the hospital on 02/17/23, and per EPS note "Pt was recently on and was doing well on his medications. Pt was cooperative, showed up for his appointments and said he was feeling better than he has in a while. [facility] wanted to take him off his medications and put him back on a monthly injection. They also wanted to take himoff of his gabapentin, but he is afraid of havig seizures again. Pt face is swollen as is his eyes. He said they him risperdol and haldol which he is allergic to. Pt got very upset with [facility]. He started to get agitated becasue they would not listen to hi He said yesterday he had a very bad day and wasnt sure what he was going to do. Pt has agreed to sign himself into medora to get back on his mediations." I evaluated patient on 02/18/23, and on my assessment, patient is calm, conversational, reports he is doing well but does not want to change his medications. He states [facility] put him on Risperdal and Haldol and claims this caused his face to swell because if allergic to this. He prefers to stay on his current meds, and would prefer to take Klonopin instead of the PRN Ativan he is prescribed on admission. Elavil 50 mg QHS Tegretol 200 mg BID Clozapine 50 mg QHS Gabapentin 800 mg TID Zyprexa 10 mg QHS Patient denies any suicidal or homicidal ideation, intent or plan. At this time patient denies any auditory or visual hallucinations. Patient denies any flight of ideas racing thoughts and increased in goal directed behavior. He denies recent drug or alcohol use. He interacting appropriately with staff and peers. PAST PSYCHIATRIC HISTORY: per chart: Patient has previous diagnoses of schizoaffective disorder, anxiety, and polysubstance abuse. The patient has had numerous psychotropic medication regimens including Zyprexa, Vistaril, gabapentin, Klonopin, Abilify, Prolixin, Invega, Risperdal, Geodon, Haldol, Artane, Saphris, Ambien, Wellbutrin, and Elavil. The patient has been reportedly doing well with Clozaril, Zyprexa, and Remeron. He has had numerous psychiatric hospitalizations and was most recently at [facility] in November and during that time transition the patient to [facility]. He was recently discharged from [facility] on 02/14/23. Patient denies any history of suicide attempts in the past. Linked with [facility]. PMH: Past Medical History: Seizure Disorder Additional Past Medical History / Comment(s): Schizophrenia, right arm fracture, degenerative disc to lower back, and right wrist plate and screws History of Any Multi-Drug Resistant Organisms: None Reported Past Surgical History: Orthopedic Surgery Additional Past Surgical History / Comment(s): mouth surgery, reduction of right arm fracture. Past Anesthesia/Blood Transfusion Reactions: No Reported Reaction Past Psychological History: Anxiety, Panic Disorder, Schizophrenia Smoking Status: Former smoker Past Alcohol Use History: Rare Past Drug Use History: Marijuana, Methamphetamine ALLERGIES: as per EMR CHEMICAL DEPENDENCY HISTORY: as per HPI FAMILY PSYCHIATRIC/SUBSTANCE USE HISTORY: Mother has reported psychiatric illness SOCIAL HISTORY: He has a guardian. He reports that he is unemployed. He is s felicia, never , and has no children.. MENTAL STATUS EXAM: General Appearance: Patient appears to be stated age is alert, directable, and attempts to cooperate. Patient appears to have fair hygiene and grooming. Right temporal area is swollen, he states this is front allergy to injection he received prior to admission. Behavior: Patient is standing without any agitated behavior. Eye contact is appropriate. Patient displays normal psychomotor activity. Speech: Patient's speech is fluent and non-pressured. Mood/Affect: Patient reports their mood is good, affect is congruent and euthymic Suicidality/Homicidality: Patient denies having any suicidal or homicidal ideation. Perceptions: Patient denies any visual hallucinations and denies any auditory hallucinations Though content/process: There is no evidence of any delusional thought content and thought process is linear and goal-directed. Memory and concentration: AOX3, grossly intact for the purposes of this session. Can spell "WORLD" backwards Judgment and insight: improving/fair STRENGTHS/WEAKNESSES: strength is that patient is resilient. Weakness is that patient history of substance abuse and noncompliance with treatment. INTELLECT: average IMPRESSIONS: Schizoaffective disorder, bipolar type Cannabis use disorder, in early remission Methamphetamine use disorder, in remission History of noncompliance with treatment PLAN: -Patient is admitted under voluntary status to [facility] for stabilization of psychiatric symptoms and safety. Patient has signed adult voluntary form. -Medications: Will start patient on Klonopin 1 mg BID for anxiety and discontinue PRN Ativan orders. -Patient was informed of the risks, benefits and side effects of the medication and patient verbally consented to taking the medications. Patient signed med consent form and was placed in chart. -Internal Medicine consult to perform medical evaluation and physical. -NRT - nicotine patch -SW on board for discharge planning. Encourage patient to participate in groups to work on coping skills. Allergies Allergy/AdvReac Type Severity Reaction Status Date / Time aripiprazole [From Abilify] Allergy Unknown Verified 02/17/23 13:41 divalproex sodium Allergy Vomiting Verified 02/17/23 13:41 [From Depakote] propoxyphene Allergy Unknown Verified 02/17/23 13:41 [From Darvocet-N] ziprasidone [From Geodon] Allergy Unknown Verified 02/17/23 13:41 fluphenazine enanthate AdvReac Severe Trismus Verified 02/17/23 13:41 [From Prolixin] fluphenazine HCl AdvReac Lockjaw Verified 02/17/23 13:41 [From Prolixin] risperidone AdvReac Nausea & Verified 02/17/23 13:41 Vomiting Vital Signs Temp 97.7 F 02/17/23 22:09 Pulse 102 H 02/18/23 01:56 Resp 18 02/18/23 01:56 BP 105/77 02/18/23 01:56 Pulse Ox 98 02/18/23 01:56 FiO2 Intake & Output 02/17/23 02/18/23 02/18/23 18:59 06:59 18:59 Weight 83.007 kg 83 kg Laboratory Last Values WBC 6.3 k/uL (3.8-10.6) 02/17/23 18:23 RBC 4.44 m/uL (4.30-5.90) 02/17/23 18: Hgb 13.3 gm/dL (13.0-17.5) 02/17/23 18: Hct 39.1 % (39.0-53.0) 02/17/23 18: MCV 88.1 fL (80.0-100.0) 02/17/23 18: MCH 29.9 pg (25.0-35.0) 02/17/23 18: MCHC 33.9 g/dL (31.0-37.0) 02/17/23 18: RDW 13.8 % (11.5-15.5) 02/17/23 18: Plt Count 280 k/uL (150-450) 02/17/23 18: MPV 6.7 02/17/23 18: Neutrophils % 67 % 02/17/23 18: Lymphocytes % 21 % 02/17/23 18: Monocytes % 5 % 02/17/23 18: Eosinophils % 5 % 02/17/23 18: Basophils % 1 % 02/17/23 18: Neutrophils # 4.2 k/uL (1.3-7.7) 02/17/23 18: Lymphocytes # 1.3 k/uL (1.0-4.8) 02/17/23 18: Monocytes # 0.3 k/uL (0-1.0) 02/17/23 18: Eosinophils # 0.3 k/uL (0-0.7) 02/17/23 18: Basophils # 0.0 k/uL (0-0.2) 02/17/23 18: Estimated Ave Glu mg/dL 105 02/17/23 20:26 Hemoglobin A1c 5.3 % (0.0-6.0) 02/17/23 20:26 Coronavirus (PCR) Not Detected (Not Detectd) 02/17/23 13:23 02/18/23 16:51 02/19/23 20:39
--- NOTE | 2023-02-19 20:59 | P.PN ---
Progress Note - Text Progress Note Date: 02/19/23 Interval history: Patient was seen wandering the hallways with a female peer and was directable and agreeable to speak with sign writer hand. He is polite, attempts to cooperate. At this time patient denies any suicidal or homicidal ideation, intent or plan. Denies any auditory or visual hallucinations. Patient denies any side effects from the medications and has been compliant with meds. He asks for increase in Klonopin but this does not appear necessary. Mental status exam: General Appearance: Patient appears to be stated age is alert, directable, and attempts to cooperate. Patient appears to have fair hygiene and grooming. Right temporal area is swollen, he states this is front allergy to injection he received prior to admission. Behavior: Patient is standing without any agitated behavior. Eye contact is appropriate. Patient displays normal psychomotor activity. Speech: Patient's speech is fluent and non-pressured. Mood/Affect: Patient reports their mood is good, affect is congruent and euthymic Suicidality/Homicidality: Patient denies having any suicidal or homicidal ideation. Perceptions: Patient denies any visual hallucinations and denies any auditory hallucinations Though content/process: There is no evidence of any delusional thought content and thought process is linear and goal-directed. Memory and concentration: AOX3, grossly intact for the purposes of this session. Can spell "WORLD" backwards Judgment and insight: improving/fair Assessment/Plan: Continue with current diagnosis. Patient continues to meet criteria for inpatient psychiatric admission for symptom stabilization and safety. Patient will be maintained on current psychotropic medication regimen. Will defer decision for long-acting injectable to primary psychiatrist/CM on Monday. Monitor for medication compliance and for any psychotropic medication side effects. Will continue to monitor ongoing response to treatment. Encouraged participation in milieu.
[2023-02-20] MEDS: carBAMazepine 200 MG TAB PO SCH ×2 (07:49→19:51)
[2023-02-20] MEDS: clonazePAM 1 MG TAB PO SCH ×2 (07:50→19:52)
[2023-02-20] MEDS: METOPROLOL SUCCINATE (ER) 50 MG TAB.ER.24H PO SCH (07:50)
[2023-02-20] MEDS: GABAPENTIN 400 MG CAP PO SCH ×3 (07:50→19:52)
--- NOTE | 2023-02-20 12:43 | P.PN ---
Progress Note - Text Progress Note Date: 02/20/23 Interval History: Patient was seen wandering the hallways and was directable and agreeable to speak with radio news writer in the office. The patient maintains that he has been adherent with his treatment. He reports that he is the one who decided to come to the hospital because he wants to be on his "right medications." He is currently denying any suicidal or homicidal ideation, intention, and/or plan. He is not reporting any auditory or visual hallucinations. He is denying any paranoia or other delusions. He remains fixated on his medication management. He is vehemently against receiving any long-acting injectable medication however the patient is under court order. The patient also expresses that he likes taking the Clozaril. Mental Status Exam: General Appearance: Patient appears to be stated age is alert, directable, and cooperative. Mildly disheveled but overall improved. Behavior: Patient is calmly seated without any agitated behavior. Speech: Patient's speech is fluent and nonpressured. Repetitive. Mood/Affect: Mood is "doing okay." affect is nervous. Suicidality/Homicidality: Patient denies having any suicidal or homicidal ideation intent or plan. Perceptions: Patient denies any visual hallucinations and denies any auditory hallucinations Though content/process: There is no evidence of any delusional thought content and thought process is linear and goal-directed. Memory and concentration: AOX3, grossly intact for the purposes of this session Judgment and insight: Improving mildly Vital Signs Temp 97.7 F 02/20/23 06:56 Pulse 101 H 02/20/23 06:56 Resp 18 02/20/23 06:56 BP 131/86 02/20/23 06:56 Pulse Ox 97 02/20/23 06:56 FiO2 Intake & Output 02/19/23 02/20/23 02/20/23 18:59 06:59 18:59 Weight 82.3 kg Assessment Schizoaffective disorder, bipolar type Cannabis use disorder, in early remission Methamphetamine use disorder, in remission History of noncompliance with treatment Plan: -Patient continues to meet criteria for inpatient psychiatric admission for symptom stabilization and safety. Patient has signed adult voluntary form and medication consent and was placed in patient's chart. -Medications: Continue medications Klonopin 1 mg by mouth twice a day continue when necessary Ativan orders Elavil 50 mg by mouth at bedtime for depression/anxiety Tegretol 200 mg by mouth twice a day for seizure disorder and for mood stabilization Gabapentin 800 mg by mouth 3 times a day for off label use for anxiety Zyprexa 10 mg by mouth at bedtime for mood stabilization/psychosis. Clozapine 50 mg by mouth at bedtime for mood stabilization/psychosis -SW on board for discharge planning. Encouraged the patient to participate in milieu.
--- NOTE | 2023-02-20 19:15 | P.MDCNMH ---
<Kaleb Stokes - Last Filed: 02/20/23 19:10> History of Present Illness H&P Date: 02/20/23 History of Presenting Illness: Patient is a very pleasant 32-year-old male with a past medical history of schiz oaffective disorder, bipolar, anxiety, methamphetamine abuse, cannabinoid use, and migraines. Patient currently admitted to inpatient psychiatric unit for treatment of psychosis. We have been consulted for medical H&P during his hospitalization. Patient seen and fully evaluated at mental health unit. Patient ambulatory with a steady gait on unit. Patient seen and fully evaluated he reports methamphetamine use/abuse and daily cannabinoid use. Patient denies nicotine use and denies alcohol use. Patient reports that he takes Fioricet as prescribed by his neurologist for his migraines. Patient reports having a migraine headache. He denies having any changes in vision, hearing, dizziness, lightheadedness, chest pain, palpitations, shortness of breath, nausea, vomiting, or experiencing any numbness/tingling/weakness/swelling in his extremities. Review of systems: Pertinent positives and negatives as discussed in HPI, a complete review of systems was performed and all other systems are negative. Physical exam: Vital signs reviewed and stable. General: Nontoxic, no distress and appears stated age. Derm: Skin warm and dry, normal coloration for ethnicity. Head: Atraumatic, normocephalic and symmetric. Eyes: EOMs intact, no lid lag, and anicteric sclera Mouth: no lip lesions, mucus membranes moist Cardiovascular: regular rate and rhythm with normal S1S2, no murmur, positive posterior tibial pulses bilaterally, and cap refill < 2 seconds. Lungs: Respirations even, regular, and unlabored on room air. Lungs CTA bilaterally, no rhonchi, no rales, no wheezing, and no accessory muscle usage. Abdominal: soft, nontender to palpation, no guarding, no appreciable organo megaly Ext: ROM intact. No gross muscle atrophy, no edema, no contractures Neuro: Speech clear, face symmetrical and CN II-XII grossly intact with no noted focal neuro deficits Psych: Alert and oriented to person, place, time, and situation. Appropriate and pleasant affect. Assessment and Plan of Care: Migraine headache -Patient may continue Fioricet 503 25/40 mg tablets 1 tablet every 4 hours as needed for migraine. Polysubstance abuse methamphetamines and cannabis -Recommend cessation of use. Schizoaffective disorder Bipolar disorder Anxiety Thank you for allowing us to participate in the care of this pleasant patient. Do not hesitate to contact us with questions. Someone can be reached from the [facility] hospitalist group all hours of the day at [phone] or via [employer]. Patient was seen independently by Nurse Practitioner. This document was prepared using documistic dictation software. Please allow for errors in transcription coordinator while rare they do occur. Past Medical History Past Medical History: Seizure Disorder Additional Past Medical History / Comment(s): Schizophrenia, right arm fracture, degenerative disc to lower back, and right wrist plate and screws. Last seizure "months ago" History of Any Multi-Drug Resistant Organisms: None Reported Past Surgical History: Orthopedic Surgery Additional Past Surgical History / Comment(s): mouth surgery, reduction of right arm fracture. Past Anesthesia/Blood Transfusion Reactions: No Reported Reaction Past Psychological History: Anxiety, Panic Disorder, Schizophrenia Smoking Status: Former smoker, Never smoker Past Alcohol Use History: Rare Past Drug Use History: Marijuana, Methamphetamine Additional Drug Use History / Comment(s): UDS negative - Past Family History Mother Brother(s) Family Medical History: Unable to Obtain Medications and Allergies Home Medications Medication Instructions Recorded Confirmed Type Metoprolol Succinate (ER) [Toprol 50 mg PO DAILY 02/09/23 02/17/23 History XL] Amitriptyline HCl [Elavil] 50 mg PO HS 30 Days #30 tab 02/14/23 02/17/23 Rx Gabapentin [Neurontin] 800 mg PO TID 14 Days #84 cap 02/14/23 02/17/23 Rx OLANZapine [ZyPREXA] 10 mg PO HS 30 Days #30 tab 02/14/23 02/17/23 Rx carBAMazepine [TEGretol] 200 mg PO BID 30 Days #60 tab 02/14/23 02/17/23 Rx cloZAPine [Clozaril] 50 mg PO HS 30 Days #60 tab 02/14/23 02/17/23 Rx Allergies Allergy/AdvReac Type Severity Reaction Status Date / Time aripiprazole [From Abilify] Allergy Unknown Verified 02/17/23 13:41 divalproex sodium Allergy Vomiting Verified 02/17/23 13:41 [From Depakote] propoxyphene Allergy Unknown Verified 02/17/23 13:41 [From Darvocet-N] ziprasidone [From Geodon] Allergy Unknown Verified 02/17/23 13:41 fluphenazine enanthate AdvReac Severe Trismus Verified 02/17/23 13:41 [From Prolixin] fluphenazine HCl AdvReac [place] Verified 02/17/23 13:41 [From Prolixin] risperidone AdvReac Nausea & Verified 02/17/23 13:41 Vomiting Physical Exam Vitals: Vital Signs Temp Pulse Resp BP Pulse Ox 02/20/23 06:56 97.7 F 101 H 18 131/86 97 Cranial Nerve Examination - Cranial Nerves Cranial Nerve II- Optic: Intact Cranial Nerve III- Oculomotor: Intact Cranial Nerve IV- Trochlear: Intact Cranial Nerve V- Trigeminal: Intact Cranial Nerve - Abducens: Intact Cranial Nerve VII- Facial: Intact Cranial Nerve VIII- Auditory: Intact Cranial Nerve IX- Glossopharyngeal: Intact Cranial Nerve X- Vagus: Intact Cranial Nerve XI- Accessory: Intact Cranial Nerve XII- Hypoglossal: Intact Results CBC & Chem 7: 02/17/23 18:23 <Mary Ann Parnell - Last Filed: 02/21/23 07:42> History of Present Illness Kaleb Stokes NP rendered care for this patient independently, reviewed the findings and plan as documented in the note above. I did not physically speak with or examine the patient on this date. Physical Exam Osteopathic Statement: *. No significant issues noted on an osteopathic s tructural exam other than those noted in the History and Physical/Consult. Results CBC & Chem 7: 02/17/23 18:23
[2023-02-20] MEDS: AMITRIPTYLINE HCL 50 MG TAB PO SCH (19:52)
[2023-02-20] MEDS: BUTALB/APAP/CAFF 50-325-40MG TAB PO PRN (19:52)
[2023-02-20] MEDS: cloZAPine 25 MG TAB PO SCH (19:52)
[2023-02-20] MEDS: OLANZapine 10 MG TAB PO SCH (19:52)
[2023-02-21] MEDS: clonazePAM 1 MG TAB PO SCH ×2 (08:10→20:42)
[2023-02-21] MEDS: GABAPENTIN 400 MG CAP PO SCH ×3 (08:10→20:39)
[2023-02-21] MEDS: METOPROLOL SUCCINATE (ER) 50 MG TAB.ER.24H PO SCH (08:11)
[2023-02-21] MEDS: carBAMazepine 200 MG TAB PO SCH ×2 (08:11→20:42)
[2023-02-21] MEDS: BUTALB/APAP/CAFF 50-325-40MG TAB PO PRN ×2 (08:13→20:41)
[2023-02-21 08:33] LABS: Clozapine (Clozaril) <25 ng/mL (200-700); Norclozapine <25 ng/mL (200-700)
[2023-02-21] MEDS ORDERED: risperiDONE 120 MG SYR (NO COST) PHARMACY STOCK SQ ONE (11:18)
[2023-02-21] MEDS ORDERED: LORazepam 1 MG TAB PO ONE (11:29)
--- NOTE | 2023-02-21 13:11 | P.PN ---
Progress Note - Text Progress Note Date: 02/21/23 Interval History: Patient was seen wandering the hallways and was directable and agreeable to speak with blog writer in the office. The patient expresses that he would like to stay on his current regimen of clozapine, Zyprexa, Tegretol, gabapentin, Elavil, and Klonopin. He was informed that we would not be prescribing him any Klonopin. The patient then continues to repeat himself the same story about why he needs to be on his certain medications and that [facility] is not providing him the medications that he needs and that helps him. He is unable to provide any specifics other than it helps him with his anxiety. He was informed however that he has been nonadherent with his treatment and despite a desire to have him just on oral medications, the dangers of not being completely adherent with Clozaril and Elavil placed him at increased risk for harm to himself whether uni ntentional or intentional. Collaboration of care took place with the patient's outpatient psychiatrist Dr. Barfield. We discussed at length that Dr. Barfield is concerned with the patient's nonadherence with treatment. There is an understanding that the patient's behaviors are often medication seeking and that he is easily upset if he does not receive the medications that he desires. There is also an understanding that the long-acting injectable medication does contribute to the patient's frequent readmissions. We discussed that the risk of frequent readmissions is less than the risk of being nonadherent with Clozaril. Mental Status Exam: General Appearance: Patient appears to be stated age is alert, directable, and cooperative. Mildly disheveled but overall improved. Behavior: Patient is calmly seated without any agitated behavior. Speech: Patient's speech is fluent and nonpressured. Very Repetitive. Mood/Affect: Mood is "I just need my same medications." Affect is intense and upset Suicidality/Homicidality: Patient denies having any suicidal or homicidal ideation intent or plan. Perceptions: Patient denies any visual hallucinations and denies any auditory hallucinations Though content/process: The patient is repetitive. Very fixated on medication management. Memory and concentration: AOX3, grossly intact for the purposes of this session Judgment and insight: Improving mildly Vital Signs Temp 97.7 F 02/20/23 06:56 Pulse 101 H 02/20/23 06:56 Resp 18 02/20/23 06:56 BP 131/86 02/20/23 06:56 Pulse Ox 97 02/20/23 06:56 FiO2 Laboratory Results - Last 24 Hours 02/17/23 20:29 Clozapine <25 L Norclozapine <25 Assessment Schizoaffective disorder, bipolar type Cannabis use disorder, in early remission Methamphetamine use disorder, in remission History of noncompliance with treatment Plan: -Patient continues to meet criteria for inpatient psychiatric admission for symptom stabilization and safety. Patient has signed adult voluntary form and medication consent and was placed in patient's chart. -Medications: Continue medications Klonopin 1 mg by mouth twice a day as we discontinued Ativan. Patient is not to be discharged with any Klonopin. Elavil 50 mg by mouth at bedtime for depression/anxiety. Patient denies being discharged on Elavil as per discussion with outpatient provider due to concerns for the patient's adherence and abuse of medications. Tegretol 200 mg by mouth twice a day for seizure disorder and for mood stabilization. This medication may be discharged with the patient. - Gabapentin 800 mg by mouth 3 times a day for off label use for anxiety - as per discussion with the outpatient provider, the patient has filled the prescription of gabapentin therefore would not need a refill of this gabapentin in the outpatient setting. -Will discontinue Clozaril and Zyprexa as we start the patient on Risperdal perseris again tonight due to his nonadherence with treatment. -SW on board for discharge planning. Encouraged the patient to participate in milieu.
[2023-02-21] MEDS ORDERED: risperiDONE 120 MG SYR (NO COST) PHARMACY STOCK SQ SCH (15:00)
[2023-02-21] MEDS ORDERED: PALIPERIDONE IM 234 MG/1.5 ML SYG IM SCH (15:00)
[2023-02-21] MEDS: AMITRIPTYLINE HCL 50 MG TAB PO SCH (20:42)
[2023-02-21] MEDS ORDERED: cloZAPine 25 MG TAB PO SCH (21:00)
[2023-02-21] MEDS ORDERED: OLANZapine 5 MG TAB PO SCH (21:00)
[2023-02-21] MEDS: LORazepam 2 MG/ML INJ IM PRN (21:44)
[2023-02-22] MEDS: clonazePAM 1 MG TAB PO SCH ×2 (08:06→20:06)
[2023-02-22] MEDS: carBAMazepine 200 MG TAB PO SCH ×2 (08:06→20:05)
[2023-02-22] MEDS: GABAPENTIN 400 MG CAP PO SCH ×3 (08:06→20:06)
[2023-02-22] MEDS: BUTALB/APAP/CAFF 50-325-40MG TAB PO PRN (08:07)
[2023-02-22] MEDS: METOPROLOL SUCCINATE (ER) 50 MG TAB.ER.24H PO SCH (08:30)
[2023-02-22] MEDS: LORazepam 2 MG/ML INJ IM PRN ×3 (10:00→22:24)
[2023-02-22] MEDS: MAG HYDROX/AL HYDROX/SIMETH 30 ML CUP PO PRN (11:10)
--- NOTE | 2023-02-22 11:58 | P.PN ---
Progress Note - Text Progress Note Date: 02/22/23 Interval History: Patient was seen wandering the hallways and was directable and agreeable to speak with keno writer in the office. The patient reports that he is feeling extremely upset and suicidal since receiving the Invega Sustenna. He reports numerous problems with the medications including nausea, vomiting, suicidal thoughts, and malaise. He reports that they all immediately started after receiving the injectable medication. He expresses that he does not feel ready t o be discharged. He is currently endorsing suicidal ideation with no intention or plan. He reports no homicidal ideation. He is not reporting any auditory or visual hallucinations. This provider contacted the ACT seal delivery vehicle team technician Jeannette Power at [phone]. She expresses concern for the patient's discharge as he is too irritable and upset after receiving the long-acting injectable. She anticipates that the patient would be difficult to follow as he would actively try and avoid the ACT team at this time. She does express that she is looking at [facility] to provide funding for continued inpatient psychiatric admission once the patient is more appropriate for discharge and follow-up with the ACT team. Mental Status Exam: General Appearance: Patient appears to be stated age is alert, directable, and cooperative. Behavior: Patient displays elevated psychomotor activity. Speech: Patient's speech is fluent, hyperverbal. Mood/Affect: Mood is " I'm not feeling good." Affect is intense. Suicidality/Homicidality: Patient reports no homicidal ideation. He does endorse suicidal ideation. Perceptions: Patient denies any visual hallucinations and denies any auditory hallucinations Though content/process: Very fixated on his medications. Memory and concentration: AOX3, grossly intact for the purposes of this session Judgment and insight: Poor Vital Signs Temp 97.4 F L 02/22/23 08:04 Pulse 108 H 02/22/23 08:04 Resp 18 02/20/23 06:56 BP 113/84 02/22/23 08:04 Pulse Ox 96 02/22/23 08:04 FiO2 Assessment Schizoaffective disorder, bipolar type Cannabis use disorder, in early remission Methamphetamine use disorder, in remission History of noncompliance with treatment Plan: This provider discussed with patient at length alternatives to treatment instead of PANIAGUA medication. We discussed at length titration of his clozaril and tapering of zyprexa. We also discussed discontinuation of klonopin. Patient is not agreeable to any oral medication changes. As the patient does not wish to adhere to any medications adjustments and there is concern for cooperation with treatment, the court order for treatment will be exercised. Regarding patient safety, The patient is prescribed medications such as clozaril and elavil which require safe administration and monitoring of dosing due to conerns for cardiovascular events. Medications such as klonopin and fioricet increase risk of respiratory depression. Due to the patient's poor insight and judgement he does not appreciate the gravity of the danger of inappropriate dosing of his medications. -Patient continues to meet criteria for inpatient psychiatric admission for symptom stabilization and safety. Patient has signed adult voluntary form and medication consent and was placed in patient's chart. -Medications: Continue invega sustenna 234 mg IM. Next loading dose of invega sustenna 156 mg IM due on 02/28/2023. Continue Klonopin 1 mg by mouth twice a day while patient is admitted. Patient is not to be discharged with this medication. Continue gabapentin and 800 mg by mouth 3 times a day. Patient is not discharged on this medication as he has this medication at home. Continue Tegretol 20 mg by mouth twice a day for mood stabilization -When necessary Ativan for agitation/aggression. -SW on board for discharge planning. Encouraged the patient to participate in milieu.
[2023-02-22] MEDS: AMITRIPTYLINE HCL 50 MG TAB PO SCH (20:05)
[2023-02-23] MEDS: GABAPENTIN 400 MG CAP PO SCH ×3 (07:52→21:05)
[2023-02-23] MEDS: carBAMazepine 200 MG TAB PO SCH ×2 (07:53→21:22)
[2023-02-23] MEDS: clonazePAM 1 MG TAB PO SCH ×2 (07:53→21:05)
[2023-02-23] MEDS: AMITRIPTYLINE HCL 50 MG TAB PO SCH (07:53)
[2023-02-23] MEDS: METOPROLOL SUCCINATE (ER) 50 MG TAB.ER.24H PO SCH (07:57)
[2023-02-23] MEDS: BUTALB/APAP/CAFF 50-325-40MG TAB PO PRN ×3 (08:15→21:05)
[2023-02-23] MEDS: LORazepam 2 MG/ML INJ IM PRN ×3 (09:07→19:40)
--- NOTE | 2023-02-23 14:33 | P.PN ---
Subjective Progress Note Date: 02/23/23 Principal diagnosis: progress note He was seen in today 9-10 am to review his rpogress. He was more pleasant and apparoched me with his strings of preceptions of the adverse events associated with starting him on Depot Invega Sustenna around February 21- prior to my takin nyasia his care on February 23 and February 24. He was parrpriately combiend and seemed to be exhibiting dependency needs. He rumniated ov erthe adverse events of the Rx: hoever, no nausea or vomiting on a ffrequent basis was charted in the nursing note. He complained that he did not feel well after he was started back on Risperidal. He recalled in the past he was on Olanzapine (Zyrexa) for a uite ano of years. I elvia griffinot have access to independent medication from [facility] to verify his data. He claiemd her was "allergic" to risperidol and argued intermittently with both [facility] and [facility] staff rgarding his Rx. He was dicontinued from Clozarpil becasue he was somewhat mis-informed of the clozapine (Clozaril) ot is hem atological side effects; agranulocytosis as if he woueld be at high risk of Leukemia" from clozapril. He was not over concerned over his wherreabouts; his follow up and his social support. I note he was tried on a high dosage regimen of DANIEL total daily dosage of 2400 mg daily dosage which was not considered to be sueful and efficacious for his watkins anxiety areaction His acute "reaction to "risperidol" may well be the sife effect of akathisia.He was very eager to be discharged much against the recommendation of [facility]. He minimized the effect of Cannnabis THC as precipitating his relapse. He ntoed that GABApentin 800 mg po tid was insufficent to hold off his anxiety rgarding risperidol. Objective findings; MSE hew as more approachable and cohrent; affect slgihtly irritable ocngruent with thought content. THought: preoccupied with the distorted side ffects of Rxs. congruent wit his thoought content. No delusion s no Hallucinatons. THought process: no deirailment. [id number]-[id number]-wenu linear. . No Suicidla or homicidal ideaiton . Cog; oriented marginal insight into his conditon Diagnosis; schizoeffective disroder. in relapse Plan: I agree he would benefit from titrating dosage of GABApentin if he had no seizure . He would benefit from Tegretol increase to 200 mg po tid. 2. Engage with the Treatment team and [facility] to organize. discharge . He would benefit from communiyt ACT follow up . If depot David would not work, he may benefti from [place] q 3month instead of q monthly. He may no tlike akdthsia and klonipion may reduce his EPS reaction a an ad hoc basis. currently he would fulfil the criteria o finpatient stay however, he may be ready to be dischraged by Monday the latest. Objective - Vital Signs Vital signs: Vital Signs Temp 97.8 F 02/23/23 09:59 Pulse 113 H 02/23/23 09:59 Resp 18 02/23/23 09:59 BP 122/78 02/23/23 09:59 Pulse Ox 96 02/23/23 09:59 FiO2 - Labs CBC & Chem 7: 02/17/23 18:23
[2023-02-24] MEDS: LORazepam 2 MG/ML INJ IM PRN (04:24)
[2023-02-24] MEDS: GABAPENTIN 400 MG CAP PO SCH ×3 (07:38→20:11)
[2023-02-24] MEDS: carBAMazepine 200 MG TAB PO SCH ×2 (07:40→20:09)
[2023-02-24] MEDS: BUTALB/APAP/CAFF 50-325-40MG TAB PO PRN ×2 (07:42→20:16)
[2023-02-24] MEDS: clonazePAM 1 MG TAB PO SCH ×4 (07:42→20:15)
[2023-02-24] MEDS: METOPROLOL SUCCINATE (ER) 50 MG TAB.ER.24H PO SCH (08:18)
--- NOTE | 2023-02-24 17:54 | P.PN ---
Subjective Progress Note Date: 02/24/23 Principal diagnosis: Progress note He was sen today in person ; His case was fruther discussed at case confernece. His complaint of feeling restless after he was given the Invega depot has progressed almost to eh proportion of obsession. i attempted to divert his attention to proble solving stratiges but failed. he was totally convinced of the value of BNZ. 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 he may benefti from increasing the dosage of BNZ. He was convincied that none of the alternative Rx have ever worked for him. I further inquired about his aftercare. He indicated his guardian has continued to approve his hotel hosuing and to reimburse him with food stamps and transporation given his limited budget. We discussed at length: options are few. He seemed to be tolerating the depot reasonably well. He was agreeable peding Dr. Cote return on Monday, he would be scheduled for discharge early next week. MSE> self grooming improvement persisted. Speech. spontaneous and fluid congruent with his thought content. No delusons no Hallucinatioins . No Suicidla or homicidal ideations. Cognition. oriented fair insight into his condition. Diagnosis : schizoaffective disroder. partial remisosn. management: he contineud to fulfil the criteria for inpatient hospitalization. Continue to monitor. Adjust clonazepna and prne lorazepam. Discharge planning to be confirmed Objective - Vital Signs Vital signs: Vital Signs Temp 97 F L 02/24/23 04:24 Pulse 97 02/24/23 04:24 Resp 16 02/24/23 04:24 BP 126/90 02/24/23 04:24 Pulse Ox 98 02/24/23 04:24 FiO2 - Labs CBC & Chem 7: 02/17/23 18:23
[2023-02-24] MEDS: AMITRIPTYLINE HCL 50 MG TAB PO SCH (20:08)
[2023-02-25] MEDS: carBAMazepine 200 MG TAB PO SCH ×2 (08:01→20:54)
[2023-02-25] MEDS: GABAPENTIN 400 MG CAP PO SCH ×3 (08:01→20:54)
[2023-02-25] MEDS: clonazePAM 1 MG TAB PO SCH ×3 (08:01→20:54)
[2023-02-25] MEDS: BUTALB/APAP/CAFF 50-325-40MG TAB PO PRN ×2 (08:02→20:54)
[2023-02-25] MEDS: METOPROLOL SUCCINATE (ER) 50 MG TAB.ER.24H PO SCH (09:22)
[2023-02-25] MEDS: MAG HYDROX/AL HYDROX/SIMETH 30 ML CUP PO PRN (10:19)
--- NOTE | 2023-02-25 15:31 | P.PN ---
Subjective Progress Note Date: 02/25/23 Principal diagnosis: Schizo affective disorder Subjective/objective data: The patient appears to be somewhat groggy Patient reports that he still needs more clonazepam and that he is use to 4 mg of Klonopin every day Patient then complained about the Invega not being in his best interest and that is going to refuse it He was convincied that none of the alternative Rx have ever worked for him. He indicated his guardian has continued to approve his hotel hosuing and to reimburse him with food stamps and transporation given his limited budget Mental status examination Mental Status Exam: General Appearance: Patient appears to be stated age appears somewhat groggy directable. Patient appears to have improving and unshaven hygiene and grooming appears to be poor Behavior: Patient is sitting in chair,. attempts to be cooperative. Speech: Patient's speech is monotone Mood/Affect: Patient reports their mood is "okay affect is congruent Suicidality/Homicidality: Patient denies having any suicidal or homicidal ideation intent or plan. Perceptions: Patient denies any visual hallucinations and denies any auditory hallucinations Though content/process: Patient is focused mainly on his medications and increasing his benzodiazepine Memory and concentration: AOX3, grossly intact for the purposes of this session Judgment and insight: Chronically poor/limited management: he contineud to fulfil the criteria for inpatient hospitalization. Continue to monitor. Patient continues to be benzodiazepine seeking seeking and actually appears to be somewhat groggy and manic need a decrease Continue supportive care or direction Encourage participation in on the [facility] activities Fady Brooks M.D. 02/25/2023 Objective - Vital Signs Vital signs: Vital Signs Temp 98.6 F 02/25/23 04:00 Pulse 108 H 02/25/23 04:00 Resp 18 02/25/23 04:00 BP 106/78 02/25/23 04:00 Pulse Ox 97 02/25/23 04:00 FiO2 - Labs CBC & Chem 7: 02/17/23 18:23
[2023-02-25] MEDS: AMITRIPTYLINE HCL 50 MG TAB PO SCH (20:54)
[2023-02-26] MEDS: METOPROLOL SUCCINATE (ER) 50 MG TAB.ER.24H PO SCH (08:11)
[2023-02-26] MEDS: GABAPENTIN 400 MG CAP PO SCH ×3 (08:13→20:24)
[2023-02-26] MEDS: BUTALB/APAP/CAFF 50-325-40MG TAB PO PRN (08:13)
[2023-02-26] MEDS: clonazePAM 1 MG TAB PO SCH ×4 (08:14→20:21)
[2023-02-26] MEDS: carBAMazepine 200 MG TAB PO SCH ×2 (08:14→20:21)
--- NOTE | 2023-02-26 12:01 | P.PN ---
Subjective Progress Note Date: 02/26/23 Principal diagnosis: Schizo affective disorder Subjective/objective data: Interview with the patient was very similar to the one from the previous day Patient continues to make his case about needing more clonazepam Memory feels that he is considering switching back to Zyprexa Patient reports that he still needs more clonazepam and that he is use to 4 mg of Klonopin every day Patient then complained about the Invega not being in his best interest and that is going to refuse it He was convincied that none of the alternative Rx have ever worked for him. He indicated his guardian has continued to approve his hotel hosuing and to reimburse him with food stamps and transporation given his limited budget Mental status examination Mental Status Exam: General Appearance: Patient appears to be stated age appears somewhat groggy directable. Patient appears to have improving and unshaven hygiene and grooming appears to be poor Behavior: Patient is sitting in chair,. attempts to be cooperative. Speech: Patient's speech is monotone Mood/Affect: Patient reports their mood is "okay affect is congruent Suicidality/Homicidality: Patient denies having any suicidal or homicidal ideation intent or plan. Perceptions: Patient denies any visual hallucinations and denies any auditory hallucinations Though content/process: Patient is focused mainly on his medications and increasing his benzodiazepine Memory and concentration: AOX3, grossly intact for the purposes of this session Judgment and insight: Chronically poor/limited management: he contineud to fulfil the criteria for inpatient hospitalization. Continue to monitor. Patient continues to be benzodiazepine seeking seeking and actually appears to be somewhat groggy and manic need a decrease Continue supportive care or direction I tried to educate the patient about issues with benzodiazepines to no avail Patient is encouraged to continue his current medication as prescribed Encourage participation in on the [employer] activities Fady Brooks M.D. 02/26/2023 Objective - Vital Signs Vital signs: Vital Signs Temp 98.6 F 02/25/23 04:00 Pulse 108 H 02/25/23 04:00 Resp 18 02/25/23 04:00 BP 106/78 02/25/23 04:00 Pulse Ox 97 02/25/23 04:00 FiO2 Intake & Output 02/25/23 02/26/23 02/26/23 18:59 06:59 18:59 Weight 87.5 kg - Labs CBC & Chem 7: 02/17/23 18:23
[2023-02-26] MEDS: MAG HYDROX/AL HYDROX/SIMETH 30 ML CUP PO PRN (12:33)
[2023-02-26] MEDS: ACETAMINOPHEN TAB 325 MG TAB PO PRN (12:33)
[2023-02-26] MEDS: AMITRIPTYLINE HCL 50 MG TAB PO SCH (20:20)
[2023-02-27] MEDS: GABAPENTIN 400 MG CAP PO SCH ×3 (07:43→21:13)
[2023-02-27] MEDS: METOPROLOL SUCCINATE (ER) 50 MG TAB.ER.24H PO SCH ×3 (07:44→21:17)
[2023-02-27] MEDS: clonazePAM 1 MG TAB PO SCH ×2 (07:45→21:13)
[2023-02-27] MEDS: carBAMazepine 200 MG TAB PO SCH ×2 (07:46→20:04)
[2023-02-27] MEDS: BUTALB/APAP/CAFF 50-325-40MG TAB PO PRN ×2 (07:46→20:04)
--- NOTE | 2023-02-27 11:47 | P.PN ---
Progress Note - Text Progress Note Date: 02/27/23 Interval History: Patient was seen in his room. The patient reports that he feels unsafe to go home because he is experiencing significant side effects and the long-acting injectable medication that he received on 02/21/2023. He expresses that he feels suicidal, nauseous, and generally sick. However, the patient has been observed to be interacting in the milieu appropriately. He remains fixated on his medication management and states that he does not want to work with [facility] anymore where his ACT team as he feels like they are not giving him the medications that he needs. He is very fixated on his medications and does not want anything changed however we are going to go forward with tapering his Klonopin. Mental Status Exam: General Appearance: Patient appears to be stated age is alert, directable, and cooperative. Behavior: Patient displays elevated psychomotor activity. Speech: Patient's speech is fluent, hyperverbal. Mood/Affect: Mood is "I'm not feeling good." Affect is anxious. Suicidality/Homicidality: Patient reports suicidal ideation "because of the injection." Perceptions: Patient denies any visual hallucinations and denies any auditory hallucinations Though content/process: Very fixated on his medications. Memory and concentration: AOX3, grossly intact for the purposes of this session Judgment and insight: Poor Vital Signs Temp 97.6 F 02/27/23 06:00 Pulse 114 H 02/27/23 06:00 Resp 20 02/27/23 06:00 BP 134/73 02/27/23 06:00 Pulse Ox 96 02/27/23 06:00 FiO2 Intake & Output 02/26/23 02/27/23 02/27/23 18:59 06:59 18:59 Weight 87.5 kg Laboratory Results WBC 6.3 k/uL (3.8-10.6) 02/17/23 18: RBC 4.44 m/uL (4.30-5.90) 02/17/23 18: Hgb 13.3 gm/dL (13.0-17.5) 02/17/23 18: Hct 39.1 % (39.0-53.0) 02/17/23 18: MCV 88.1 fL (80.0-100.0) 02/17/23 18: MCH 29.9 pg (25.0-35.0) 02/17/23 18: MCHC 33.9 g/dL (31.0-37.0) 02/17/23 18: RDW 13.8 % (11.5-15.5) 02/17/23 18: Plt Count 280 k/uL (150-450) 02/17/23 18: MPV 6.7 02/17/23 18: Neutrophils % 67 % 02/17/23 18: Lymphocytes % 21 % 02/17/23 18: Monocytes % 5 % 02/17/23 18: Eosinophils % 5 % 02/17/23 18: Basophils % 1 % 02/17/23 18: Neutrophils # 4.2 k/uL (1.3-7.7) 02/17/23 18: Lymphocytes # 1.3 k/uL (1.0-4.8) 02/17/23 18: Monocytes # 0.3 k/uL (0-1.0) 02/17/23 18: Eosinophils # 0.3 k/uL (0-0.7) 02/17/23 18: Basophils # 0.0 k/uL (0-0.2) 02/17/23 18: Estimated Ave Glu mg/dL 105 02/17/23 20: Hemoglobin A1c 5.3 % (0.0-6.0) 02/17/23 20:26 Clozapine <25 ng/mL (200-700) L 02/17/23 20:29 Norclozapine <25 ng/mL (200-700) 02/17/23 20:29 Coronavirus (PCR) Not Detected (Not Detectd) 02/17/23 13:23 Assessment Schizoaffective disorder, bipolar type Cannabis use disorder, in early remission Methamphetamine use disorder, in remission History of noncompliance with treatment Plan: This provider discussed with patient at length alternatives to treatment instead of PANIAGUA medication. We discussed at length titration of his clozaril and tapering of zyprexa. We also discussed discontinuation of klonopin. Patient is not agreeable to any oral medication changes. As the patient does not wish to adhere to any medications adjustments and there is concern for cooperation with treatment, the court order for treatment will be exercised. Regarding patient safety, The patient is prescribed medications such as clozaril and elavil which require safe administration and monitoring of dosing due to conerns for cardiovascular events. Medications such as klonopin and fioricet increase risk of respiratory depression. Due to the patient's poor insight and judgement he does not appreciate the gravity of the danger of inappropriate dosing of his medications. -Patient continues to meet criteria for inpatient psychiatric admission for symptom stabilization and safety. Patient has signed adult voluntary form and medication consent and was placed in patient's chart. -Medications: Continue invega sustenna 234 mg IM. Next loading dose of invega sustenna 156 mg IM due on 02/28/2023. Decrese Klonopin to 1 mg BID. Patient is not to be discharged with this medication. Continue gabapentin and 800 mg by mouth 3 times a day. Patient is not discharged on this medication as he has this medication at home. Continue Tegretol 200 mg by mouth twice a day for mood stabilization -When necessary Ativan for agitation/aggression. -SW on board for discharge planning. Encouraged the patient to participate in milieu.
[2023-02-27] MEDS: MAG HYDROX/AL HYDROX/SIMETH 30 ML CUP PO PRN (13:33)
[2023-02-27] MEDS: ACETAMINOPHEN TAB 325 MG TAB PO PRN (13:33)
[2023-02-27] MEDS: AMITRIPTYLINE HCL 50 MG TAB PO SCH (21:14)
[2023-02-28] MEDS: BUTALB/APAP/CAFF 50-325-40MG TAB PO PRN ×2 (07:48→20:39)
[2023-02-28] MEDS: carBAMazepine 200 MG TAB PO SCH ×2 (07:49→20:39)
[2023-02-28] MEDS: GABAPENTIN 400 MG CAP PO SCH ×3 (07:49→20:38)
[2023-02-28] MEDS: clonazePAM 1 MG TAB PO SCH ×2 (07:49→20:39)
--- NOTE | 2023-02-28 13:41 | P.PN ---
Progress Note - Text Progress Note Date: 02/28/23 Interval History: Patient was seen in his room. The patient continues to report that he is experiencing significant problems that are caused from the long-acting injection. He continues to repeat himself constantly stating that he is feeling sick, feeling anxious, and feels that he is experiencing a seizure. He reports that the Klonopin is the only medication that is keeping him from experiencing a seizure. The patient also reports that he would feel safe to go if he was to be prescribed Klonopin. He was informed that he would not be prescribed any Klonopin upon discharge. The patient expressed a desire for discharge today as he was scheduled for an appointment with his neurologist. We discussed with [facility] and they're currently working on alternative housing for this patient. Otherwise, the patient continues to report suicidal ideation in the context of the long-acting injection. He reports no homicidal ideation. He denies any auditory or visual hallucinations. Mental Status Exam: Grossly unchanged from yesterday General Appearance: Patient appears to be stated age is alert, directable, and cooperative. Behavior: Patient displays elevated psychomotor activity. Speech: Patient's speech is fluent, hyperverbal. Mood/Affect: Mood is "I'm not feeling good." Affect is anxious. Suicidality/Homicidality: Patient reports suicidal ideation "because of the injection." Perceptions: Patient denies any visual hallucinations and denies any auditory hallucinations Though content/process: Very fixated on his medications. Memory and concentration: AOX3, grossly intact for the purposes of this session Judgment and insight: Poor Vital Signs Temp 98.3 F 02/28/23 06:56 Pulse 92 02/28/23 06:56 Resp 18 02/28/23 06:56 BP 135/96 02/28/23 06:56 Pulse Ox 97 02/28/23 06:56 FiO2 Assessment Schizoaffective disorder, bipolar type Cannabis use disorder, in early remission Methamphetamine use disorder, in remission History of noncompliance with treatment Plan: This provider discussed with patient at length alternatives to treatment instead of PANIAGUA medication. We discussed at length titration of his clozaril and tapering of zyprexa. We also discussed discontinuation of klonopin. Patient is not agreeable to any oral medication changes. As the patient does not wish to adhere to any medications adjustments and there is concern for cooperation with treatment, the court order for treatment will be exercised. Regarding patient safety, The patient is prescribed medications such as clozaril and elavil which require safe administration and monitoring of dosing due to conerns for cardiovascular events. Medications such as klonopin and fioricet increase risk of respiratory depression. Due to the patient's poor insight and judgement he does not appreciate the gravity of the danger of inappropriate dosing of his medications. -Patient continues to meet criteria for inpatient psychiatric admission for symptom stabilization and safety. Patient has signed adult voluntary form and me dication consent and was placed in patient's chart. -Medications: Continue invega sustenna 234 mg IM. Patient is to receive his injection every monthly. Continue Klonopin 1 mg by mouth twice a day with plans to taper to 1 mg daily tomorrow. Taper Elavil 25 mg by mouth at bedtime Continue gabapentin and 800 mg by mouth 3 times a day. Continue Tegretol 200 mg by mouth twice a day for mood stabilization -When necessary Ativan for agitation/aggression. -SW on board for discharge planning. Encouraged the patient to participate in milieu.
[2023-02-28 16:26] VITALS: BMI 27.6
[2023-02-28] MEDS ORDERED: AMITRIPTYLINE HCL 25 MG TAB PO SCH (21:00)
[2023-03-01] MEDS: carBAMazepine 200 MG TAB PO SCH (08:18)
[2023-03-01] MEDS: GABAPENTIN 400 MG CAP PO SCH (08:19)
[2023-03-01] MEDS: METOPROLOL SUCCINATE (ER) 50 MG TAB.ER.24H PO SCH ×2 (08:19→08:22)
[2023-03-01] MEDS: BUTALB/APAP/CAFF 50-325-40MG TAB PO PRN (08:20)
[2023-03-01 08:22] VITALS: BP 105/77; PULSE 104; RESP 20; TEMP 97.3
[2023-03-01] MEDS ORDERED: clonazePAM 1 MG TAB PO SCH (09:00)
--- NOTE | 2023-03-03 12:34 | P.DS ---
Providers Date of admission: 02/17/23 19:32 Expected date of discharge: 03/03/23 Attending physician: Lincoln Cote MD Consults: 02/17/23 19:37 Consult Physician Routine Consulting Provider: Eugene Humphrey Consult Reason/Comments: medical management Do you want consulting provider notified?: Yes Primary care physician: Stated None - Discharge Diagnosis(es) (1) Schizoaffective disorder, bipolar type Status: Acute Priority: High (2) Noncompliance Status: Acute Priority: High (3) Methamphetamine use disorder, moderate, in early remission Status: Chronic Priority: Medium Hospital Course: Admission HPI: Initial psychiatric evaluation was completed by Dr. Irene on 02/18/2023 who wrote: "Patient is a 32-year-old single, unemployed, male with significant history of schizoaffective disorder, bipolar type, ESVIN, methamphetamine use disorder, and cannabis use disorder, who is well known to this psychiatric facility and was recently discharged from here on 02/14/2023, and was sent back by [facility] due to wanting changes in his medications. HPI: Patient presented to the hospital on 02/17/23, and per EPS note "Pt was recently on and was doing well on his medications. Pt was cooperative, showed up for his appointments and said he was feeling better than he has in a while. [facility] wanted to take him off his medications and put him back on a monthly injection. They also wanted to take himoff of his gabapentin, but he is afraid of havig seizures again. Pt face is swollen as is his eyes. He said they him risperdol and haldol which he is allergic to. Pt got very upset with [facility]. He started to get agitated becasue they would not listen to hi He said yesterday he had a very bad day and wasnt sure what he was going to do. Pt has agreed to sign himself into to get back on his mediations." I evaluated patient on 02/18/23, and on my assessment, patient is calm, conversational, reports he is doing well but does not want to change his medications. He states [facility] put him on Risperdal and Haldol and claims this caused his face to swell because if allergic to this. He prefers to stay on his current meds, and would prefer to take Klonopin instead of the PRN Ativan he is prescribed on admission. Elavil 50 mg QHS Tegretol 200 mg BID Clozapine 50 mg QHS Gabapentin 800 mg TID Zyprexa 10 mg QHS Patient denies any suicidal or homicidal ideation, intent or plan. At this time patient denies any auditory or visual hallucinations. Patient denies any flight of ideas racing thoughts and increased in goal directed behavior. He denies recent drug or alcohol use. He interacting appropriately with staff and peers. PAST PSYCHIATRIC HISTORY: per chart: Patient has previous diagnoses of schizoaffective disorder, anxiety, and polysubstance abuse. The patient has had numerous psychotropic medication regimens including Zyprexa, Vistaril, gabapentin, Klonopin, Abilify, Prolixin, Invega, Risperdal, Geodon, Haldol, Artane, Saphris, Ambien, Wellbutrin, and Elavil. The patient has been reportedly doing well with Clozaril, Zyprexa, and Remeron. He has had numerous psychiatric hospitalizations and was most recently at [facility] in November and during that time transition the patient to [facility]. He was recently discharged from [facility] on 02/14/23. Patient denies any history of suicide attempts in the past. Linked with [facility]." Hospital course: Upon admission to the unit patient was initially presenting with temporal lobe swelling, weight gain, and fixation on his medication regimen. Patient was however directable to initate treatment. He was started on klonopin by Dr Irene in order to minimize the patient constantly asking for ativan for anxiety. Patient got along well with other patients on the unit and followed unit protocol. Patient was compliant with the medications, however after discussion with Dr Barba and [facility], due to the patient's history of nonadherence with treatment and his fixation on certain medications, it was preferable to place the patient back on a long acting injection such as invega sustenna. This provider discussed with patient at length alternatives to treatment instead of PANIAGUA medication. We discussed at length titration of his clozaril and tapering of zyprexa. We also discussed discontinuation of klonopin. Patient was not agreeable to any oral medication changes. Regarding patient safety, the patient was prescribed medications such as clozaril and elavil which require safe administration and monitoring of dosing due to conerns for cardiovascular events. Medications such as klonopin and fioricet increase risk of respiratory depression. Due to the patient's poor insight and judgement he does not a ppreciate the gravity of the danger of inappropriate dosing of his medications and therfore he was transitioned to invega sustenna.As the patient does not wish to adhere to any medications adjustments and there was concern for cooperation with treatment, the court order for treatment was exercised and he was administered invega sustenna on 02/21/2023. Once administered the invega sustenna, the patient was highly irritable and agitated. He constantly argued and demanded for his medications to remain the same (elavil, zyprexa, klonopin, gabapentin). When informed he would not be on these medications due to dangers listed above, the patient continued to repeat himself over and over again that he needed these medications and that he only came to the hospital to speak with Dr Cote. A team meeting with the ACT team, [facility], Dr Cote, and the patient occurred. The patient agreed to go to [facility] on the caveat he have klonopin to "treat the side effects of the invega shot." Of note, the patient did not display any physical abnormalities or any changes in labs or vitals since receiving the PANIAGUA invega sustenna. On the day of discharge, the patient continues to vehemently state that he does not need any long-acting injectable medication is causing him to feel sick. Despite reassurance, the patient is not amenable to hearing otherwise. Patient is not reporting any suicidal or homicidal ideation, intention, and/or plan. He is not reporting any auditory or visual hallucinations. He does express that he is experiencing numerous somatic symptoms because of the injection including hot flashes, rashes, seizures, and nausea. None of this has been noted by staff for this provider. As the patient no longer met criteria for continued inpatient psychiatric consultation, he was subsequently discharged. Mental status exam: General Appearance: Patient appears to be stated age is alert and difficult to direct. Patient is distressed but at baseline. Behavior: Patient is standing in the office but displays no psychomotor agitation. Speech: Patient's speech is fluent and nonpressured. Hyperveral, repetitive. Mood/Affect: Patient reports their mood is "Not good becase of the shot.", affect is intense, irritable, and anxious. Suicidality/Homicidality: Patient reports no suicidal or homicidal ideation. Perceptions: Patient denies any auditory or visual hallucinations. Though content/process: Patient reports somatic complaints and is fixated on his PANIAGUA medication. Memory and concentration: AOX3, grossly intact for the purposes of this session. Can spell "WORLD" backwards correctly. Judgment and insight: Poor at baseline. Guarded Prognosis. Impression: Schizoaffective disorder, bipolar type Cannabis use disorder, in early remission Methamphetamine use disorder, in remission History of noncompliance with treatment Plan: -Continue with discharge today as patient has improved and stabilized psychiatrically and is not currently an imminent threat to himself and/or others. Patient will remain at chronically elevated risk for harm to self and/or others due to his lack of adherence with treatment, severity of mental illness, and history of substance abuse. -Continue medications: Tegretol 200 mg twice a day for mood stabilization Klonopin 0.5 mg twice a day for anxiety Invega sustenna 234 mg IM QMONTHLY. Next dose due on 03/21/2023. -Patient was counseled on the need for medication compliance and appropriate follow-up at mental health and also primary care for medical issues. -Social work to arrange for and conduct family meeting to ensure safety upon discharge and answer any questions/concerns. Social work also to arrange for patients follow up appointments with [facility] for psychiatric care along with follow up with primary care provider. -Patient counseled on abstaining from recreational drugs and marijuana and alcohol. Was informed/educated on the adverse effects on their physical and mental health. Patient verbally agreed and understood. -Patient was instructed to return to the hospital or seek immediate medical care if their psychiatric or medical symptoms do worsen or reoccur. -Psychoeducation and supportive therapy provided to patient. Risks and benefits of pharmacological treatment versus the risks and benefits of nontreatment weighed and discussed. Informed consent discussion held. Common side effects of psychotropics discussed such as, but not limited to headache, GI disturbance, sexual dysfunction, movement disorders, sedation, and orthostatic hypotension. Life threatening and blackbox warnings of prescribed medications also discussed. Potential risks of operating a vehicle or heavy machinery discussed with patient at length. Advised on importance of compliance and a reliable and responsible manner. Patient advised to review FDA consumer labeling of all medications prior to taking. Patient verbalized understanding of potential risks, and agrees with current treatment plan. Patient advised to medically contact physician/emergency personnel if any acute changes in condition occur. Vital Signs Temp 97.3 F L 03/01/23 08:20 Pulse 104 H 03/01/23 08:20 Resp 20 03/01/23 08:20 BP 105/77 03/01/23 08:20 Pulse Ox 97 02/28/23 06:56 FiO2 Laboratory Results WBC 6.3 k/uL (3.8-10.6) 02/17/23 18: RBC 4.44 m/uL (4.30-5.90) 02/17/23 18: Hgb 13.3 gm/dL (13.0-17.5) 02/17/23: Hct 39.1 % (39.0-53.0) 02/17/23: MCV 88.1 fL (80.0-100.0) 02/17/23: MCH 29.9 pg (25.0-35.0) 02/17/23 18: MCHC 33.9 g/dL (31.0-37.0) 02/17/23: RDW 13.8 % (11.5-15.5) 02/17/23: Plt Count 280 k/uL (150-450) 02/17/23 18: MPV 6.7 02/17/23 18: Neutrophils % 67 % 02/17/23 18: Lymphocytes % 21 % 02/17/23 18: Monocytes % 5 % 02/17/23 18: Eosinophils % 5 % 02/17/23 18: Basophils % 1 % 02/17/23 18: Neutrophils # 4.2 k/uL (1.3-7.7) 02/17/23 18: Lymphocytes # 1.3 k/uL (1.0-4.8) 02/17/23: Monocytes # 0.3 k/uL (0-1.0) 02/17/23 18: Eosinophils # 0.3 k/uL (0-0.7) 02/17/23 18: Basophils # 0.0 k/uL (0-0.2) 02/17/23 18:[address] Glu mg/dL 105 02/17/23 20:26 Hemoglobin A1c 5.3 % (0.0-6.0) 02/17/23 20:26 Clozapine <25 ng/mL (200-700) L 02/17/23 20:29 Norclozapine <25 ng/mL (200-700) 02/17/23 20:29 Coronavirus (PCR) Not Detected (Not Detectd) 02/17/23 13:23 Allergies Allergy/AdvReac Type Severity Reaction Status Date / Time aripiprazole [From Abilify] Allergy Unknown Verified 03/03/23 10:15 divalproex sodium Allergy Vomiting Verified 03/03/23 10:15 [From Depakote] haloperidol [From Haldol] Allergy Unknown Verified 03/03/23 10:15 propoxyphene Allergy Unknown Verified 03/03/23 10:15 [From Darvocet-N] ziprasidone [From Geodon] Allergy Unknown Verified 03/03/23 10:15 fluphenazine enanthate AdvReac Severe Trismus Verified 03/03/23 10:15 [From Prolixin] fluphenazine HCl AdvReac Lock[place]aw Verified 03/03/23 10:15 [From Prolixin] paliperidone [From Invega] AdvReac panic Verified 03/03/23 10:15 attacks risperidone AdvReac Nausea & Verified 03/03/23 10:15 Vomiting Patient Condition at Discharge: Stable Plan - Discharge Summary Discharge Rx Participant: No New Discharge Prescriptions: New carBAMazepine [TEGretol] 200 mg PO BID 30 Days #60 tab clonazePAM [KlonoPIN] 0.5 mg PO BID 30 Days #60 tab Paliperidone IM [Invega Sustenna] 234 mg IM QMONTHLY #1 ml Continue Metoprolol Succinate (ER) [Toprol XL] 50 mg PO DAILY Discontinued Amitriptyline HCl [Elavil] 50 mg PO HS 30 Days #30 tab Gabapentin [Neurontin] 800 mg PO TID 14 Days #84 cap cloZAPine [Clozaril] 50 mg PO HS 30 Days #60 tab carBAMazepine [TEGretol] 200 mg PO BID 30 Days #60 tab OLANZapine [ZyPREXA] 10 mg PO HS 30 Days #30 tab Discharge Medication List Metoprolol Succinate (ER) [Toprol XL] 50 mg PO DAILY 02/09/23 [History] Paliperidone IM [Invega Sustenna] 234 mg IM QMONTHLY #1 ml 03/01/23 [Rx] carBAMazepine [TEGretol] 200 mg PO BID 30 Days #60 tab 03/01/23 [Rx] clonazePAM [KlonoPIN] 0.5 mg PO BID 30 Days #60 tab 03/01/23 [Rx] Follow up Appointment(s)/Referral(s): [facility] [Outside] - 03/02/23 10:00 am (03/02/2023 10:00AM - 10:30AM MELBA BARBA Scheduled ) [facility] [NON-STAFF] - 1 Week Patient Instructions/Handouts: Schizoaffective Disorder (DC) Activity/Diet/Wound Care/Special Instructions: Avoid the use of street drugs and alcohol. Take all medications as prescribed. When you are in need of refills on your medications, please contact your medical provider and/or outpatient psychiatrist to have this done. Please go to scheduled outpatient appointments for aftercare treatment. If symptoms return or become worse, call the crisis line at and/or go to the nearest emergency room for evaluation. Discharge Disposition: HOME SELF-CARE
== END 2023-03-01 15:22 | disposition home or self-care (01) | DRG 885 ==
LOC: EC 11:10 → EEVIPCON 11:10 → 3MHU 19:32
PROVIDERS: ADMIT Psychiatry & Neurology Psychiatry; ATTEND Psychiatry & Neurology Psychiatry
DX: F25.0 Schizoaffective disorder, bipolar type (principal); R45.851 Suicidal ideations; G40.909 Epilepsy, unspecified, not intractable, without status epilepticus; G43.909 Migraine, unspecified, not intractable, without status migrainosus; F15.11 Other stimulant abuse, in remission; Z20.822 Contact with and (suspected) exposure to COVID-19; Z28.310 Unvaccinated for COVID-19; F12.11 Cannabis abuse, in remission; F41.1 Generalized anxiety disorder; Z79.899 Other long term (current) drug therapy; Z87.891 Personal history of nicotine dependence; Z91.199 Patient's noncompliance with other medical treatment and regimen due to unspecified reason; Z56.0 Unemployment, unspecified; Z88.5 Allergy status to narcotic agent; Z88.8 Allergy status to other drugs, medicaments and biological substances
CPT/HCPCS: 36415; 80159; 82075; 83036; 85025; 87635; 99285

== ENCOUNTER 2023-03-03 09:54 | Emergency (ER) | payer MEDICARE, OTHER ==
[2023-03-03] MEDS ORDERED: GABAPENTIN 400 MG CAP PO STA (10:15)
[2023-03-03] MEDS ORDERED: ONDANSETRON ODT 4 MG TAB PO STA (10:15)
--- NOTE | 2023-03-03 10:15 | ED ---
Arrhythmia/Palpitations HPI - General Chief Complaint: Arrhythmia/Palpitations Stated Complaint: chest pain Time Seen by Provider: 03/03/23 10:02 Source: patient, RN notes reviewed Mode of arrival: ambulatory Limitations: no limitations - History of Present Illness Initial Comments: This is a pleasant 32-year-old male with a history of schizophrenia, illicit drug abuse. Also has a history of seizure disorder. He presents to the emergency department today complaining of palpitations, nausea, several episodes of vomiting over the last several days. Patient apparently was admitted to the psychiatric floor here at the hospital and was released 2 days ago. Patient states that he has several medication changes and was taken off of his seizure medications, antipsychotic medications, Neurontin, and Klonopin. Apparently patient was started on Invega. Patient states he had this injection about 7 days ago. He states he's had a strange feeling since then has vomited several times. She denies any suicidality or homicidality but states he has a "crazy feeling in his head." "Like insane." Patient denying any fever or chills. Denies any shortness of breath or chest pain. Patient states that his psychiatrist is Dr. Barfield at [facility]. Patient states his neurologist is Dr. Ramin NELSON Complaint: "heart racing", palpitations - Related Data Home Medications Medication Instructions Recorded Confirmed Metoprolol Succinate (ER) [Toprol 50 mg PO DAILY 02/09/23 03/03/23 XL] Previous Rx's Medication Instructions Recorded Paliperidone IM [Invega Sustenna] 234 mg IM QMONTHLY #1 ml 03/01/23 carBAMazepine [TEGretol] 200 mg PO BID 30 Days #60 tab 03/01/23 clonazePAM [KlonoPIN] 0.5 mg PO BID 30 Days #60 tab 03/01/23 Allergies Allergy/AdvReac Type Severity Reaction Status Date / Time aripiprazole [From Abilify] Allergy Unknown Verified 03/03/23 10:15 divalproex sodium Allergy Vomiting Verified 03/03/23 10:15 [From Depakote] haloperidol [From Haldol] Allergy Unknown Verified 03/03/23 10:15 propoxyphene Allergy Unknown Verified 03/03/23 10:15 [From Darvocet-N] ziprasidone [From Geodon] Allergy Unknown Verified 03/03/23 10:15 fluphenazine enanthate AdvReac Severe Trismus Verified 03/03/23 10:15 [From Prolixin] fluphenazine HCl AdvReac Lock[place]aw Verified 03/03/23 10:15 [From Prolixin] paliperidone [From Invega] AdvReac panic Verified 03/03/23 10:15 attacks risperidone AdvReac Nausea & Verified 03/03/23 10:15 Vomiting Review of Systems ROS Statement: Those systems with pertinent positive or pertinent negative responses have been documented in the HPI. ROS Other: All systems not noted in ROS Statement are negative. Past Medical History Past Medical History: Seizure Disorder Additional Past Medical History / Comment(s): Schizophrenia, right arm fracture, degenerative disc to lower back, and right wrist plate and screws. Last seizure "months ago" History of Any Multi-Drug Resistant Organisms: None Reported Past Surgical History: Orthopedic Surgery Additional Past Surgical History / Comment(s): mouth surgery, reduction of right arm fracture. Past Anesthesia/Blood Transfusion Reactions: No Reported Reaction Past Psychological History: Anxiety, Panic Disorder, Schizophrenia Smoking Status: Former smoker, Never smoker Past Alcohol Use History: Rare Past Drug Use History: Marijuana, Methamphetamine - Past Family History Mother Brother(s) Family Medical History: Unable to Obtain General Exam Limitations: no limitations General appearance: alert, in no apparent distress Head exam: Present: atraumatic, normocephalic, normal inspection Eye exam: Present: normal appearance, PERRL, EOMI. Absent: scleral icterus, conjunctival injection, periorbital swelling ENT exam: Present: normal exam, normal oropharynx, mucous membranes dry, mucous membranes moist, normal external ear exam Neck exam: Present: normal inspection, full ROM. Absent: tenderness, meningismus, lymphadenopathy Respiratory exam: Present: normal lung sounds bilaterally. Absent: respiratory distress, wheezes, rales, rhonchi, stridor, chest wall tenderness, accessory muscle use, decreased breath sounds, prolonged expiratory Cardiovascular Exam: Present: regular rate, normal rhythm, normal heart sounds. Absent: systolic murmur, diastolic murmur, rubs, gallop, clicks GI/Abdominal exam: Present: soft, normal bowel sounds. Absent: distended, tenderness, guarding, rebound, rigid Extremities exam: Present: normal inspection, full ROM, normal capillary refill. Absent: tenderness, pedal edema, joint swelling, calf tenderness Back exam: Present: normal inspection Neurological exam: Present: alert, oriented X3, CN II-XII intact Psychiatric exam: Present: normal mood, anxious (Mild), flat affect. Absent: normal affect, depressed, agitated, manic, homicidal ideation, suicidal ideation Skin exam: Present: warm, dry, intact, normal color. Absent: rash Course Vital Signs 03/03/23 09:58 Temperature 98 F Pulse Rate 105 H Respiratory 22 Rate Blood Pressure 118/84 O2 Sat by Pulse 98 Oximetry - Reevaluation(s) Reevaluation #1: 03/03/23 11:38 Patient reevaluated, resting comfortably in bed. Laboratory evaluations show no significant findings. Reevaluation #2: 03/03/23 11:39 Urine drug screen positive for barbiturates. Reevaluation #3: 03/03/23 11:48 Case discussed in detail with Dr. Claire, psychiatry, he advises that we contact [facility] outpatient team to monitor the patient and help with medication administration. He is okay for the patient discharged. Reevaluation #4: 03/03/23 13:00 Patient reevaluated, no distress. Evaluated by the psychiatric nurse, Demetrice. Patient is going back to the [facility]. [facility] outpatient team was notified. No changes in medication per the patient's psychiatrist. On-call psychiatrist, Dr. De Paz also notified. Medical Decision Making - Medical Decision Making Was pt. sent in by a medical professional or institution? @ -[Patient came on his own accord] Did you speak to anyone other than the patient for history? @ -Psychiatrist, [facility] Did you review nursing and triage notes? @ -Agree Were old charts reviewed? @ -Devious admissions to include previous psychiatric admission. Differential Diagnosis? @ -Anxiety, arrhythmia, electrolyte disturbance, less likely atrial fibril lation, less likely infectious etiology. Less likely neurologic abnormality. Patient is not suicidal or homicidal. This is likely related to anxiety, possible medication reaction or related to change in medications. EKG interpreted by me (3pts min.)? @EKG interpreted a 10:10 AM and by me reveals sinus rhythm with short OR interval, OR of 118 ms. Other intervals are normal. Normal axis. No acute ST or T-wave changes. No ST elevation or depression. Rate 93, no change from the previous study on 12/15/2022 X-rays interpreted by me (1pt min.)? @ -[none] CT interpreted by me (1pt min.)? @ -[none] U/S interpreted by me (1pt. min.)? @ -[none] What testing was considered but not performed? (CT, X-rays, U/S, labs)? Why? @ I did consider imaging. However given the patient's presentation I did not feel this would change course or disposition of the patient. What meds were considered but not given? Why? @ -I did give a dose of Neurontin here to appease the patient as he was demanding this. I did consider anxiolytic. However decided to speak with the psychiatrist before hand. Did you discuss the management of the patient with other professionals? @ -The psychiatrist, Dr. Cote. [facility] outpatient team notified, case Demetrice guerrero the psychiatric nurse, Dr. De Paz Did you reconcile home meds? @ -Reviewed Was smoking cessation discussed for >3mins.? @ -Discussed smoking cessation for greater than 3 minutes. Risks, benefits, treatments discussed. Was critical care preformed (if so, how long)? @ -[none] Were there social determinants of health that impacted care today? How? (Homelessness, low income, unemployed, alcoholism, drug addiction, transportation, low edu. Level, literacy, decrease access to med. care, care home, rehab)? @ -Patient does have significant issues regarding social determinants of health. Patient has a history of schizophrenia, previous illicit drug abuse, however the patient is involved actively with community mental health. [facility] outpatient team notified. Was there de-escalation of care discussed even if they declined? (Discuss DNR or withdrawal of care, Hospice)? @ -[Not applicable] What co-morbidities impacted this encounter? (DM, HTN, Smoking, COPD, CAD, Cancer, CVA, Hep., AIDS, mental health diagnosis, sleep apnea, morbid obesity)? @ -Previous history of illicit drug abuse, schizophrenia, bipolar disorder, anxiety Was patient admitted / discharged? @ -[Patient discharged, no distress, likely related to the patient's anxiety and chronic psychiatric issues.] Undiagnosed new problem with uncertain prognosis? @ -This is a diagnosed problem. Unlikely to pose risks to bodily function or life. Drug Therapy requiring intensive monitoring for toxicity (Heparin, Nitro, Insulin, Cardizem)? @ -[none] Were any procedures done? @ -[none] Diagnosis/symptom? @ -Anxiety, history of schizophrenia, possible medication reaction, palpitations Acute, or Chronic, or Acute on Chronic? @ -This is acute on chronic. All diagnoses are relatively mild, no diagnoses other than the palpitations of which are likely related to anxiety. This is all diagnoses are unlikely to cause harm to bodily function or life. Uncomplicated (without systemic symptoms) or Complicated (systemic symptoms)? @ -Uncomplicated, limited symptomology Side effects of treatment? @ -[none] Exacerbation, Progression, or Severe Exacerbation] @ -[no] Poses a threat to life or bodily function? @ -[no] Patient was told to return to the ER for any signs or symptoms worsen. Told to return immediately if any other problems arise. All questions answered. Treatment plan discussed. Patient in agreement Every effort has been made to ensure accuracy of this dictation. However, due to the limitations of electronic medical records and dictation devices, errors in charting still occur. Discharge per psychiatry and [facility] - Lab Data Result diagrams: 03/03/23 10:22 03/03/23 10:22 Lab Results 03/03/23 03/03/23 03/03/23 Range/Units 10:22 10:22 10:22 WBC 4.6 (3.8-10.6) k/uL RBC 4.65 (4.30-5.90) m/uL Hgb 13.9 (13.0-17.5) gm/dL Hct 40.7 (39.0-53.0) % MCV 87.5 (80.0-100.0) fL MCH 29.9 (25.0-35.0) pg MCHC 34.1 (31.0-37.0) g/dL RDW 14.8 (11.5-15.5) % Plt Count 206 (150-450) k/uL MPV 7.5 Neutrophils % 80 % Lymphocytes % 10 % Monocytes % 7 % Eosinophils % 1 % Basophils % 1 % Neutrophils # 3.7 (1.3-7.7) k/uL Lymphocytes # 0.5 L (1.0-4.8) k/uL Monocytes # 0.3 (0-1.0) k/uL Eosinophils # 0.0 (0-0.7) k/uL Basophils # 0.0 (0-0.2) k/uL Sodium 138 (137-145) mmol/L Potassium 4.3 (3.5-5.1) mmol/L Chloride 100 (98-107) mmol/L Carbon Dioxide 26 (22-30) mmol/L Anion Gap 12 mmol/L BUN 12 (9-20) mg/dL Creatinine 0.59 L (0.66-1.25) mg/dL Est GFR (CKD-EPI)AfAm >90 (>60 ml/min/1.73 sqM) Est GFR (CKD-EPI)NonAf >90 (>60 ml/min/1.73 sqM) Glucose 118 H (74-99) mg/dL Calcium 9.2 (8.4-10.2) mg/dL Magnesium 2.2 (1.6-2.3) mg/dL Total Bilirubin 0.4 (0.2-1.3) mg/dL AST 41 (17-59) U/L ALT 75 H (4-49) U/L Alkaline Phosphatase 93 (38-126) U/L Troponin I (0.000-0.034) ng/mL Total Protein 7.8 (6.3-8.2) g/dL Albumin 4.9 (3.5-5.0) g/dL TSH 3.140 (0.465-4.680) mIU/L Urine Opiates Screen Not Detected (NotDetected) Ur Oxycodone Screen Not Detected (NotDetected) Urine Methadone Screen Not Detected (NotDetected) Ur Propoxyphene Screen Not Detected (NotDetected) Ur Barbiturates Screen Detected H (NotDetected) U Tricyclic Antidepress Not Detected (NotDetected) Ur Phencyclidine Scrn Not Detected (NotDetected) Ur Amphetamines Screen Not Detected (NotDetected) U Methamphetamines Scrn Not Detected (NotDetected) U Benzodiazepines Scrn Not Detected (NotDetected) Urine Cocaine Screen Not Detected (NotDetected) U Marijuana (THC) Screen Not Detected (NotDetected) 03/03/23 Range/Units 10:22 WBC (3.8-10.6) k/uL RBC (4.30-5.90) m/uL Hgb (13.0-17.5) gm/dL Hct (39.0-53.0) % MCV (80.0-100.0) fL MCH (25.0-35.0) pg MCHC (31.0-37.0) g/dL RDW (11.5-15.5) % Plt Count (150-450) k/uL MPV Neutrophils % % Lymphocytes % % Monocytes % % Eosinophils % % Basophils % % Neutrophils # (1.3-7.7) k/uL Lymphocytes # (1.0-4.8) k/uL Monocytes # (0-1.0) k/uL Eosinophils # (0-0.7) k/uL Basophils # (0-0.2) k/uL Sodium (137-145) mmol/L Potassium (3.5-5.1) mmol/L Chloride (98-107) mmol/L Carbon Dioxide (22-30) mmol/L Anion Gap mmol/L BUN (9-20) mg/dL Creatinine (0.66-1.25) mg/dL Est GFR (CKD-EPI)AfAm (>60 ml/min/1.73 sqM) Est GFR (CKD-EPI)NonAf (>60 ml/min/1.73 sqM) Glucose (74-99) mg/dL Calcium (8.4-10.2) mg/dL Magnesium (1.6-2.3) mg/dL Total Bilirubin (0.2-1.3) mg/dL AST (17-59) U/L ALT (4-49) U/L Alkaline Phosphatase (38-126) U/L Troponin I <0.012 (0.000-0.034) ng/mL Total Protein (6.3-8.2) g/dL Albumin (3.5-5.0) g/dL TSH (0.465-4.680) mIU/L Urine Opiates Screen (NotDetected) Ur Oxycodone Screen (NotDetected) Urine Methadone Screen (NotDetected) Ur Propoxyphene Screen (NotDetected) Ur Barbiturates Screen (NotDetected) U Tricyclic Antidepress (NotDetected) Ur Phencyclidine Scrn (NotDetected) Ur Amphetamines Screen (NotDetected) U Methamphetamines Scrn (NotDetected) U Benzodiazepines Scrn (NotDetected) Urine Cocaine Screen (NotDetected) U Marijuana (THC) Screen (NotDetected) Disposition Clinical Impression: Anxiety, Palpitations, Nausea & vomiting, History of schizophrenia, [id number] (WPW) pattern Disposition: HOME SELF-CARE Condition: Good Instructions (If sedation given, give patient instructions): Heart Palpitations (ED), Anxiety (ED) Additional Instructions: Follow-up with your regular physician as directed. Return to the ER immediately if any symptoms worsen, new symptoms arise, or any other problems develop. Follow-up with Dr. De Oliveira and [facility] as discussed. Is patient prescribed a controlled substance at d/c from ED?: No Referrals: None,Stated [Primary Care Provider] - 1-2 days Time of Disposition: 12:03
[2023-03-03 10:48] LABS: ALT 75 U/L (4-49); AST 41 U/L (17-59); African American GFR (CKD) >90 (>60 ml/min/1.73 sqM); Albumin 4.9 g/dL (3.5-5.0); Alkaline Phosphatase 93 U/L (38-126); Anion Gap 12 mmol/L; Blood Urea Nitrogen 12 mg/dL (9-20); Calcium 9.2 mg/dL (8.4-10.2); Carbon Dioxide 26 mmol/L (22-30); Chloride 100 mmol/L (98-107); Glucose 118 mg/dL (74-99); Magnesium 2.2 mg/dL (1.6-2.3); Non-African American GFR(CKD) >90 (>60 ml/min/1.73 sqM); Potassium 4.3 mmol/L (3.5-5.1); Sodium 138 mmol/L (137-145); Total Bilirubin 0.4 mg/dL (0.2-1.3); Total Protein 7.8 g/dL (6.3-8.2)
[2023-03-03 10:51] LABS: Basophils % (A) 1 %; Eosinophils % (A) 1 %; HCT 40.7 % (39.0-53.0); HGB 13.9 gm/dL (13.0-17.5); Lymphocytes # (A) 0.5 k/uL (1.0-4.8); Lymphocytes % (A) 10 %; MCH 29.9 pg (25.0-35.0); MCHC 34.1 g/dL (31.0-37.0); MCV 87.5 fL (80.0-100.0); Mean Platelet Volume 7.5; Monocytes # (A) 0.3 k/uL (0-1.0); Monocytes % (A) 7 %; Neutrophils # (A) 3.7 k/uL (1.3-7.7); Neutrophils % (A) 80 %; Platelet Count 206 k/uL (150-450); RBC 4.65 m/uL (4.30-5.90); RDW 14.8 % (11.5-15.5); WBC 4.6 k/uL (3.8-10.6)
[2023-03-03 11:14] LABS: Amphetamine Screen,Urine Not Detected (NotDetected); Barbiturate Screen,Urine Detected (NotDetected); Benzodiazepines Screen,Urine Not Detected (NotDetected); Cocaine Screen,Urine Not Detected (NotDetected); Methadone Screen, Urine Not Detected (NotDetected); Opiate Screen,Urine Not Detected (NotDetected); Oxycodone Screen, Urine Not Detected (NotDetected); Phencyclidine Screen,Urine Not Detected (NotDetected); Tricyclic Antidepressant,Urine Not Detected (NotDetected); Urn Cannabinoid Scrn Not Detected (NotDetected)
[2023-03-03 13:20] VITALS: BP 130/88; PULSE 91; RESP 18; TEMP 98.2
== END 2023-03-03 13:19 | disposition home or self-care (01) ==
LOC: EC 09:54
DX: R00.2 Palpitations (principal); F41.9 Anxiety disorder, unspecified; R11.2 Nausea with vomiting, unspecified; I45.6 Pre-excitation syndrome; Z86.59 Personal history of other mental and behavioral disorders; Z87.891 Personal history of nicotine dependence; F12.90 Cannabis use, unspecified, uncomplicated; Z88.8 Allergy status to other drugs, medicaments and biological substances
CPT/HCPCS: 36415; 80053; 80306; 83735; 84443; 84484; 85025; 93005; 99285

== ENCOUNTER 2023-03-03 20:48 | Emergency (ER) | payer MEDICARE, OTHER ==
--- NOTE | 2023-03-03 23:43 | ED ---
General Adult HPI - General Chief complaint: Recheck/Abnormal Lab/Rx Stated complaint: Med refill Time Seen by Provider: 03/03/23 22:36 Source: patient, RN notes reviewed, old records reviewed Mode of arrival: ambulatory Limitations: no limitations - History of Present Illness Initial comments: Patient is a 32-year-old male who presents here with department after multiple prior visits this week. Was just seen here earlier today for chest pain and discharged home. Returns this evening as he is requesting doses of his normal Neurontin as well as doses of his Fioricet. States he did not receive prescriptions for these medications. Patient does have a guardian, who called ahead and did state that patient is not allowed to have any new medications. The guardian is Petra. Patient does not have progression to be seen if he is just coming in for medication. No new medications are allowed at this time. Patient states he should be prescribed these medications. I did discuss with him what his guardian states, and that is what we will be doing on this visit. He has no new complaints. He just wants his medications. Denies chest pain, abdominal pain, nausea, vomiting. Presents for medication refill. - Related Data Home Medications Medication Instructions Recorded Confirmed Metoprolol Succinate (ER) [Toprol 50 mg PO DAILY 02/09/23 03/03/23 XL] Previous Rx's Medication Instructions Recorded Paliperidone IM [Invega Sustenna] 234 mg IM QMONTHLY #1 ml 03/01/23 carBAMazepine [TEGretol] 200 mg PO BID 30 Days #60 tab 03/01/23 clonazePAM [KlonoPIN] 0.5 mg PO BID 30 Days #60 tab 03/01/23 Allergies Allergy/AdvReac Type Severity Reaction Status Date / Time aripiprazole [From Abilify] Allergy Unknown Verified 03/03/23 21:03 divalproex sodium Allergy Vomiting Verified 03/03/23 21:03 [From Depakote] haloperidol [From Haldol] Allergy Unknown Verified 03/03/23 21:03 propoxyphene Allergy Unknown Verified 03/03/23 21:03 [From Darvocet-N] ziprasidone [From Geodon] Allergy Unknown Verified 03/03/23 21:03 fluphenazine enanthate AdvReac Severe Trismus Verified 03/03/23 21:03 [From Prolixin] fluphenazine HCl AdvReac Lockjaw Verified 03/03/23 21:03 [From Prolixin] paliperidone [From Invega] AdvReac panic Verified 03/03/23 21:03 attacks risperidone AdvReac Nausea & Verified 03/03/23 21:03 Vomiting Review of Systems ROS Statement: Those systems with pertinent positive or pertinent negative responses have been documented in the HPI. Review of Systems: CONST: Denies fever EYES: Denies blurry vision ENT: Denies nasal congestion C/V: Denies Chest pain RESP: Denies shortness of breath GI: Denies abdominal pain : Denies dysuria SKIN: Denies rash. MSK: Denies joint pain. NEURO: Denies headache ROS Other: All systems not noted in ROS Statement are negative. Past Medical History Past Medical History: Seizure Disorder Additional Past Medical History / Comment(s): Schizophrenia, right arm fracture, degenerative disc to lower back, and right wrist plate and screws. Last seizure "months ago" History of Any Multi-Drug Resistant Organisms: None Reported Past Surgical History: Orthopedic Surgery Additional Past Surgical History / Comment(s): mouth surgery, reduction of right arm fracture. Past Anesthesia/Blood Transfusion Reactions: No Reported Reaction Past Psychological History: Anxiety, Panic Disorder, Schizophrenia Smoking Status: Former smoker, Never smoker Past Alcohol Use History: Rare Past Drug Use History: Marijuana, Methamphetamine - Past Family History Mother Brother(s) Family Medical History: Unable to Obtain General Exam - General Exam Comments Initial Comments: General: Appears in no acute distress. HEAD: Normal with no signs of head trauma. EYES: EOMI. ENT: Hearing grossly intact. RESPIRATORY: No respiratory distress. C/V: Regular rate and rhythm. ABD: Abdomen is nondistended. EXT: No obvious deformity. SKIN: No rashes or lesions observed on exposed skin. NEURO: Alert and oriented. Limitations: no limitations Course Vital Signs 03/03/23 03/03/23 20:59 23:47 Temperature 97.7 F 97.8 F Pulse Rate 116 H 100 Respiratory 20 22 Rate Blood Pressure 137/74 133/70 O2 Sat by Pulse 96 98 Oximetry Medical Decision Making - Medical Decision Making Was pt. sent in by a medical professional or institution (, PA, MACHINE II COREMAKER, urgent care, hospital, or long term...) When possible be specific @ -No Did you speak to anyone other than the patient for history (EMS, parent, family, police, friend...)? What history was obtained from this source @ -No Did you review nursing and triage notes (agree or disagree)? Why? @ -I reviewed and agree with nursing and triage notes Were old charts reviewed (outside hosp., previous admission, EMS record, old EKG, old radiological studies, urgent care reports/EKG's, long term records)? Report findings @ -Old charts reviewed as well as nursing note were medication with public guardian Beatris states patient does not have permission to be seen if it is just for medication or medication refills. He is not to be given any additional medications. Differential Diagnosis (chest pain, altered mental status, abdominal pain women, abdominal pain men, vaginal bleeding, weakness, fever, dyspnea, syncope, headache, dizziness, GI bleed, back pain, seizure, CVA, palpatations, mental health, musculoskeletal)? @ -Medication refill. Physical exam. This list is not all-inclusive. EKG interpreted by me (3pts min.). @ -None done X-rays interpreted by me (1pt min.). @ -None done CT interpreted by me (1pt min.). @ -None done U/S interpreted by me (1pt. min.). @ -None done What testing was considered but not performed or refused? (CT, X-rays, U/S, labs)? Why? @ -None What meds were considered but not given or refused? Why? @ -None Did you discuss the management of the patient with other professionals (professionals i.e. , PA, MACHINE II COREMAKER, lab, RT, psych nurse, social work case manager, membership director, teacher, weapons electrical engineering officer, case filler)? Give summary @ -No Was smoking cessation discussed for >3mins.? @ -No Was critical care preformed (if so, how long)? @ -No Were there social determinants of health that impacted care today? How? (Homelessness, low income, unemployed, alcoholism, drug addiction, transportation, low edu. Level, literacy, decrease access to med. care, longterm, rehab)? @ -No Was there de-escalation of care discussed even if they declined (Discuss DNR or withdrawal of care, Hospice)? DNR status @ -No What co-morbidities impacted this encounter? (DM, HTN, Smoking, COPD, CAD, Cancer, CVA, ARF, Chemo, Hep., AIDS, mental health diagnosis, sleep apnea, morbid obesity)? @ -None Was patient admitted / discharged? Hospital course, mention meds given and route, prescriptions, significant lab abnormalities, going to OR and other pertinent info. @ -Based on the patient's presentation and physical exam, he presents for medication refill at this time. Per public guardian Beatris, he is not to receive any medications or be evaluated for this complaint. He is to be sent back to his [facility] home. Patient has no other acute complaints. I did inform him he cannot receive these medications. He was disappointed but expressed understanding. He will talk with his guardian. Vital signs within except for limits. He'll be discharged home at this time. Undiagnosed new problem with uncertain prognosis? @ -No Drug Therapy requiring intensive monitoring for toxicity (Heparin, Nitro, Insulin, Cardizem)? @ -No Were any procedures done? @ -No Diagnosis/symptom? @ -Medication refill Acute, or Chronic, or Acute on Chronic? @ -Acute Uncomplicated (without systemic symptoms) or Complicated (systemic symptoms)? @ -Uncomplicated Side effects of treatment? @ -No Exacerbation, Progression, or Severe Exacerbation? @ -No Poses a threat to life or bodily function? How? (Chest pain, [place], [place], pneumonia, PE, COPD, DKA, ARF, appy, cholecystitis, CVA, Diverticulitis, Homicidal, Suicidal, threat to staff... and all critical care pts) @ -No Disposition Clinical Impression: Routine check-up, Medication refill Disposition: HOME SELF-CARE Condition: Good Is patient prescribed a controlled substance at d/c from ED?: No Referrals: None,Stated [Primary Care Provider] - 1-2 days Time of Disposition: 23:40
[2023-03-03 23:49] VITALS: BP 133/70; PULSE 100; RESP 22; TEMP 97.8
== END 2023-03-03 23:49 | disposition home or self-care (01) ==
LOC: EC 20:48
DX: Z76.0 Encounter for issue of repeat prescription (principal); F20.9 Schizophrenia, unspecified; F12.90 Cannabis use, unspecified, uncomplicated; Z87.891 Personal history of nicotine dependence; Z88.8 Allergy status to other drugs, medicaments and biological substances; Z79.899 Other long term (current) drug therapy
CPT/HCPCS: 99282

== ENCOUNTER 2023-03-08 17:38 | Emergency (ER) | payer MEDICARE, OTHER ==
[2023-03-08 17:49] VITALS: BP 133/93; PULSE 103; RESP 18
--- NOTE | 2023-03-08 18:13 | ED ---
General Adult HPI - General Chief complaint: Psychiatric Symptoms Stated complaint: Mental Health Time Seen by Provider: 03/08/23 17:50 Source: patient, EMS, RN notes reviewed, old records reviewed Mode of arrival: EMS Limitations: no limitations - History of Present Illness Initial comments: This is a 32-year-old male who presents emergency department stating that he is upset with [facility] because they're telling him to take drugs and in the telling him not to take drugs and they're telling him to take an vague and he says he is ALLERGIC to one leg so he has called the police on them and wants him arrested. Patient states he so fed up at this point in time that he suicidal though he does not have a plan currently. Patient denies any physical complaints today. - Related Data Home Medications Medication Instructions Recorded Confirmed Metoprolol Succinate (ER) [Toprol 50 mg PO DAILY 02/09/23 03/03/23 XL] Previous Rx's Medication Instructions Recorded Paliperidone IM [Invega Sustenna] 234 mg IM QMONTHLY #1 ml 03/01/23 carBAMazepine [TEGretol] 200 mg PO BID 30 Days #60 tab 03/01/23 clonazePAM [KlonoPIN] 0.5 mg PO BID 30 Days #60 tab 03/01/23 Allergies Allergy/AdvReac Type Severity Reaction Status Date / Time aripiprazole [From Abilify] Allergy Unknown Verified 03/08/23 17:50 divalproex sodium Allergy Vomiting Verified 03/08/23 17:50 [From Depakote] haloperidol [From Haldol] Allergy Unknown Verified 03/08/23 17:50 propoxyphene Allergy Unknown Verified 03/08/23 17:50 [From Darvocet-N] ziprasidone [From Geodon] Allergy Unknown Verified 03/08/23 17:50 fluphenazine enanthate AdvReac Severe Trismus Verified 03/08/23 17:50 [From Prolixin] fluphenazine HCl AdvReac Lockjaw Verified 03/08/23 17:50 [From Prolixin] paliperidone [From Invega] AdvReac panic Verified 03/08/23 17:50 attacks risperidone AdvReac Nausea & Verified 03/08/23 17:50 Vomiting Review of Systems ROS Statement: Those systems with pertinent positive or pertinent negative responses have been documented in the HPI. ROS Other: All systems not noted in ROS Statement are negative. Past Medical History Past Medical History: Seizure Disorder Additional Past Medical History / Comment(s): Schizophrenia, right arm fracture, degenerative disc to lower back, and right wrist plate and screws. Last seizure "months ago" History of Any Multi-Drug Resistant Organisms: None Reported Past Surgical History: Orthopedic Surgery Additional Past Surgical History / Comment(s): mouth surgery, reduction of right arm fracture. Past Anesthesia/Blood Transfusion Reactions: No Reported Reaction Past Psychological History: Anxiety, Panic Disorder, Schizophrenia Smoking Status: Former smoker, Never smoker Past Alcohol Use History: Rare Past Drug Use History: Marijuana, Methamphetamine - Past Family History Mother Brother(s) Family Medical History: Unable to Obtain General Exam - General Exam Comments Initial Comments: GENERAL: Patient is well-developed and well-nourished. Patient is nontoxic and well- hydrated and is in mild distress. ENT: Neck is soft and supple. No significant lymphadenopathy is noted. Oropharynx is clear. Moist mucous membranes. EYES: The sclera were anicteric and conjunctiva were pink and moist. Extraocular movements were intact and pupils were equal round and reactive to light. Eyelids were unremarkable. PULMONARY: Unlabored respirations. Good breath sounds bilaterally. No audible rales rhonchi or wheezing was noted. CARDIOVASCULAR: There is a regular rate and rhythm without any murmurs gallops or rubs. ABDOMEN: Soft and nontender with normal bowel sounds. SKIN: Skin is clear with no lesions or rashes and otherwise unremarkable. NEUROLOGIC: Patient is alert and oriented x3. Cranial nerves II through XII are grossly intact. Motor and sensory are also intact. Normal speech, volume and content. Symmetrical smile. MUSCULOSKELETAL: Normal extremities with adequate strength and full range of motion. LYMPHATICS: No significant lymphadenopathy is noted PSYCHIATRIC: Patient is very anxious and states he suicidal. Limitations: no limitations Course Vital Signs 03/08/23 17:45 Pulse Rate 103 H Respiratory 18 Rate Blood Pressure 133/93 O2 Sat by Pulse 98 Oximetry Medical Decision Making - Medical Decision Making Was pt. sent in by a medical professional or institution (, PA, HEAD OF PRODUCT, urgent care, hospital, or retirement...) When possible be specific @ -No Did you speak to anyone other than the patient for history (EMS, parent, family, police, friend...)? What history was obtained from this source @ -I spoke to EPS prior to the patient's arrival Did you review nursing and triage notes (agree or disagree)? Why? @ -I reviewed and agree with nursing and triage notes Were old charts reviewed (outside hosp., previous admission, EMS record, old EKG, old radiological studies, urgent care reports/EKG's, retirement records)? Report findings @ -I reviewed prior charts and this patient Differential Diagnosis (chest pain, altered mental status, abdominal pain women, abdominal pain men, vaginal bleeding, weakness, fever, dyspnea, syncope, headache, dizziness, GI bleed, back pain, seizure, CVA, palpatations, mental health, musculoskeletal)? @ -Differential Mental Health Depression, anxiety, bipolar, psychosis, schizophrenia, borderline personality, situational depression, adjustment disorder, behavioral disorder, brain tumor, malingering, substance abuse, encephalopathy, medication reaction, dementia, hypothyroidism, degenerative neurologic disorder, lupus.... This is not meant to be all-inclusive list EKG interpreted by me (3pts min.). @ -As above X-rays interpreted by me (1pt min.). @ -None done CT interpreted by me (1pt min.). @ -None done U/S interpreted by me (1pt. min.). @ -None done What testing was considered but not performed or refused? (CT, X-rays, U/S, labs)? Why? @ -None What meds were considered but not given or refused? Why? @ -None Did you discuss the management of the patient with other professionals (professionals i.e. , PA, HEAD OF PRODUCT, lab, RT, psych nurse, sr. social media & mobile manager, summer associate, teacher, debt recovery officer, supportive employment case manager)? Give summary @ -Psychiatric nurse came down and evaluated the patient I spoke with her Was smoking cessation discussed for >3mins.? @ -No Was critical care preformed (if so, how long)? @ -No Were there social determinants of health that impacted care today? How? (Homelessness, low income, unemployed, alcoholism, drug addiction, transportation, low edu. Level, literacy, decrease access to med. care, [facility], rehab)? @ -No Was there de-escalation of care discussed even if they declined (Discuss DNR or withdrawal of care, Hospice)? DNR status @ -No What co-morbidities impacted this encounter? (DM, HTN, Smoking, COPD, CAD, Cancer, CVA, ARF, Chemo, Hep., AIDS, mental health diagnosis, sleep apnea, morbid obesity)? @ -None Was patient admitted / discharged? Hospital course, mention meds given and route, prescriptions, significant lab abnormalities, going to OR and other pertinent info. @ -Patient was seen by EPS the spoke with the patient's guardian and put together a safety plan patient will be discharged home Undiagnosed new problem with uncertain prognosis? @ -No Drug Therapy requiring intensive monitoring for toxicity (Heparin, Nitro, Insulin, Cardizem)? @ -No Were any procedures done? @ -No Diagnosis/symptom? @ -Drug-seeking behavior Acute, or Chronic, or Acute on Chronic? @ -Acute Uncomplicated (without systemic symptoms) or Complicated (systemic symptoms)? @ -Uncomplicated Side effects of treatment? @ -No Exacerbation, Progression, or Severe Exacerbation? @ -No Poses a threat to life or bodily function? How? (Chest pain, [place], [place], pneumonia, PE, COPD, DKA, ARF, appy, cholecystitis, CVA, Diverticulitis, Homicidal, Suicidal, threat to staff... and all critical care pts) @ -No Disposition Clinical Impression: Drug-seeking behavior, Schizophrenia Disposition: HOME SELF-CARE Condition: Good Additional Instructions: Follow-up per safety plan Is patient prescribed a controlled substance at d/c from ED?: No Referrals: None,Stated [Primary Care Provider] - 1-2 days Time of Disposition: 19:55
== END 2023-03-08 20:06 | disposition home or self-care (01) ==
LOC: EC 17:38
DX: F20.9 Schizophrenia, unspecified (principal); F15.90 Other stimulant use, unspecified, uncomplicated; F12.90 Cannabis use, unspecified, uncomplicated; Z76.5 Malingerer [conscious simulation]; Z88.8 Allergy status to other drugs, medicaments and biological substances; Z87.891 Personal history of nicotine dependence
CPT/HCPCS: 82075; 99285

== ENCOUNTER 2023-03-21 12:25 | Emergency (ER) | payer MEDICARE, OTHER ==
[2023-03-21 12:38] VITALS: BP 104/74; PULSE 110; RESP 20; TEMP 98.6
[2023-03-21 13:17] LABS: Amphetamine Screen,Urine Not Detected (NotDetected); Barbiturate Screen,Urine Not Detected (NotDetected); Benzodiazepines Screen,Urine Not Detected (NotDetected); Cocaine Screen,Urine Not Detected (NotDetected); Methadone Screen, Urine Not Detected (NotDetected); Opiate Screen,Urine Not Detected (NotDetected); Oxycodone Screen, Urine Not Detected (NotDetected); Phencyclidine Screen,Urine Not Detected (NotDetected); Tricyclic Antidepressant,Urine Not Detected (NotDetected); Urn Cannabinoid Scrn Not Detected (NotDetected)
[2023-03-21] MEDS ORDERED: GABAPENTIN 400 MG CAP PO STA (13:25)
--- NOTE | 2023-03-21 14:45 | ED ---
Psych HPI - General Chief Complaint: Psychiatric Symptoms Stated Complaint: mental health Time Seen by Provider: 03/21/23 12:39 Source: patient, RN notes reviewed Mode of arrival: ambulatory Limitations: no limitations - History of Present Illness Initial Comments: 32-year-old male presents emergency department for psychiatric evaluation. Patient states he feels that he needs a medication adjustment. Patient is also due for his leg injection. He states he is depressed he occasionally has suicidal thoughts but nothing currently. Patient denies any current alcohol or drug use. - Related Data Home Medications Medication Instructions Recorded Confirmed Metoprolol Succinate (ER) [Toprol 50 mg PO DAILY 02/09/23 03/03/23 XL] Previous Rx's Medication Instructions Recorded Paliperidone IM [Invega Sustenna] 234 mg IM QMONTHLY #1 ml 03/01/23 carBAMazepine [TEGretol] 200 mg PO BID 30 Days #60 tab 03/01/23 clonazePAM [KlonoPIN] 0.5 mg PO BID 30 Days #60 tab 03/01/23 Allergies Allergy/AdvReac Type Severity Reaction Status Date / Time aripiprazole [From Abilify] Allergy Unknown Verified 03/08/23 17:50 divalproex sodium Allergy Vomiting Verified 03/08/23 17:50 [From Depakote] haloperidol [From Haldol] Allergy Unknown Verified 03/08/23 17:50 propoxyphene Allergy Unknown Verified 03/08/23 17:50 [From Darvocet-N] ziprasidone [From Geodon] Allergy Unknown Verified 03/08/23 17:50 fluphenazine enanthate AdvReac Severe Trismus Verified 03/08/23 17:50 [From Prolixin] fluphenazine HCl AdvReac Lockjaw Verified 03/08/23 17:50 [From Prolixin] paliperidone [From Invega] AdvReac panic Verified 03/08/23 17:50 attacks risperidone AdvReac Nausea & Verified 03/08/23 17:50 Vomiting Review of Systems ROS Statement: Those systems with pertinent positive or pertinent negative responses have been documented in the HPI. ROS Other: All systems not noted in ROS Statement are negative. Past Medical History Past Medical History: Seizure Disorder Additional Past Medical History / Comment(s): Schizophrenia, right arm fracture, degenerative disc to lower back, and right wrist plate and screws. Last seizure "months ago" History of Any Multi-Drug Resistant Organisms: None Reported Past Surgical History: Orthopedic Surgery Additional Past Surgical History / Comment(s): mouth surgery, reduction of right arm fracture. Past Anesthesia/Blood Transfusion Reactions: No Reported Reaction Past Psychological History: Anxiety, Panic Disorder, Schizophrenia Smoking Status: Former smoker, Never smoker Past Alcohol Use History: Rare Past Drug Use History: Marijuana, Methamphetamine - Past Family History Mother Brother(s) Family Medical History: Unable to Obtain General Exam Limitations: no limitations General appearance: alert, in no apparent distress Head exam: Present: atraumatic, normocephalic, normal inspection Eye exam: Present: normal appearance, PERRL, EOMI. Absent: scleral icterus, conjunctival injection, periorbital swelling ENT exam: Present: normal exam, normal oropharynx, mucous membranes moist Neck exam: Present: normal inspection. Absent: tenderness, meningismus, lymphadenopathy Respiratory exam: Present: normal lung sounds bilaterally. Absent: respiratory distress, wheezes, rales, rhonchi, stridor Cardiovascular Exam: Present: regular rate, normal rhythm, normal heart sounds. Absent: systolic murmur, diastolic murmur, rubs, gallop, clicks GI/Abdominal exam: Present: soft, normal bowel sounds. Absent: distended, tenderness, guarding, rebound, rigid Course Vital Signs 03/21/23 12:35 Temperature 98.6 F Pulse Rate 110 H Respiratory 20 Rate Blood Pressure 104/74 O2 Sat by Pulse 97 Oximetry Medical Decision Making - Medical Decision Making Was pt. sent in by a medical professional or institution (, PA, CUSTOMER SUPPORT EXECUTIVE, urgent care, hospital, or jail...) When possible be specific @ -No Did you speak to anyone other than the patient for history (EMS, parent, family, police, friend...)? What history was obtained from this source @ -No Did you review nursing and triage notes (agree or disagree)? Why? @ -I reviewed and agree with nursing and triage notes Were old charts reviewed (outside hosp., previous admission, EMS record, old EKG, old radiological studies, urgent care reports/EKG's, jail records)? Report findings @ -No old charts were reviewed Differential Diagnosis (chest pain, altered mental status, abdominal pain women, abdominal pain men, vaginal bleeding, weakness, fever, dyspnea, syncope, headache, dizziness, GI bleed, back pain, seizure, CVA, palpatations, mental health, musculoskeletal)? @ -Depression, schizophrenia, anxiety EKG interpreted by me (3pts min.). @ -None X-rays interpreted by me (1pt min.). @ -None done CT interpreted by me (1pt min.). @ -None done U/S interpreted by me (1pt. min.). @ -None done What testing was considered but not performed or refused? (CT, X-rays, U/S, labs)? Why? @ -None What meds were considered but not given or refused? Why? @ -None Did you discuss the management of the patient with other professionals (pro fessionals i.e. , PA, CUSTOMER SUPPORT EXECUTIVE, lab, RT, psych nurse, social security benefits interviewer, labor employment associate, teacher, special assets officer, transplant case manager)? Give summary @ -EPS, psychiatrists who evaluated the patient and recommended patient to be discharged Was smoking cessation discussed for >3mins.? @ -No Was critical care preformed (if so, how long)? @ -No Were there social determinants of health that impacted care today? How? (Homelessness, low income, unemployed, alcoholism, drug addiction, transportation, low edu. Level, literacy, decrease access to med. care, [facility], rehab)? @ -No Was there de-escalation of care discussed even if they declined (Discuss DNR or withdrawal of care, Hospice)? DNR status @ -No What co-morbidities impacted this encounter? (DM, HTN, Smoking, COPD, CAD, Cancer, CVA, ARF, Chemo, Hep., AIDS, mental health diagnosis, sleep apnea, morbid obesity)? @ -None Was patient admitted / discharged? Hospital course, mention meds given and route, prescriptions, significant lab abnormalities, going to OR and other pertinent info. @ -Discharge patient was evaluated by psychiatric services recommended outpatient treatment. Patient did receive his injection by [facility] Undiagnosed new problem with uncertain prognosis? @ -No Drug Therapy requiring intensive monitoring for toxicity (Heparin, Nitro, Insulin, Cardizem)? @ -No] Were any procedures done? @ -[No] Diagnosis/symptom? @ -[Schizophrenia] Acute, or Chronic, or Acute on Chronic? @ -[Chronic] Uncomplicated (without systemic symptoms) or Complicated (systemic symptoms)? @ -[Uncomplicated] Side effects of treatment? @ -[No] Exacerbation, Progression, or Severe Exacerbation? @ -[No] Poses a threat to life or bodily function? How? (Chest pain, [place], [place], pneumonia, PE, COPD, DKA, ARF, appy, cholecystitis, CVA, Diverticulitis, Homicidal, Suicidal, threat to staff... and all critical care pts) @ -[No] - Lab Data Lab Results 03/21/23 Range/Units 12:49 Urine Opiates Screen Not Detected (NotDetected) Ur Oxycodone Screen Not Detected (NotDetected) Urine Methadone Screen Not Detected (NotDetected) Ur Propoxyphene Screen Not Detected (NotDetected) Ur Barbiturates Screen Not Detected (NotDetected) U Tricyclic Antidepress Not Detected (NotDetected) Ur Phencyclidine Scrn Not Detected (NotDetected) Ur Amphetamines Screen Not Detected (NotDetected) U Methamphetamines Scrn Not Detected (NotDetected) U Benzodiazepines Scrn Not Detected (NotDetected) Urine Cocaine Screen Not Detected (NotDetected) U Marijuana (THC) Screen Not Detected (NotDetected) Disposition Clinical Impression: Schizophrenia Disposition: HOME SELF-CARE Condition: Stable Additional Instructions: Please return to the Emergency Department if symptoms worsen or any other concerns. Is patient prescribed a controlled substance at d/c from ED?: No Referrals: Anna Gandhi MD [Primary Care Provider] - 1-2 days Time of Disposition: 14:45
== END 2023-03-21 15:08 | disposition home or self-care (01) ==
LOC: EC 12:25
DX: F20.9 Schizophrenia, unspecified (principal); Z86.59 Personal history of other mental and behavioral disorders; Z87.891 Personal history of nicotine dependence; F12.90 Cannabis use, unspecified, uncomplicated; Z88.8 Allergy status to other drugs, medicaments and biological substances
CPT/HCPCS: 80306; 82075; 99284

== ENCOUNTER 2023-03-23 12:06 | Emergency (ER) | payer MEDICARE, OTHER ==
[2023-03-23 12:14] VITALS: BP 112/75; PULSE 115; RESP 20; TEMP 98.2
--- NOTE | 2023-03-23 12:36 | ED ---
General Adult HPI - General Chief complaint: Recheck/Abnormal Lab/Rx Stated complaint: Seizure Time Seen by Provider: 03/23/23 12:10 Source: patient, RN notes reviewed, old records reviewed Mode of arrival: ambulatory Limitations: no limitations - History of Present Illness Initial comments: This is a 32-year-old male presents emergency department stating that he was given his Invega shot 2 days ago he doesn't like it. And he states every time he gets the shot he feels like his seizure even though he does not have a seizure. Patient states he would like some Neurontin. Patient states he comes to the emergency department because he just would like a couple Neurontin until he can get with [facility] that they give her prescription. [facility] in the past and [facility] in the past and indicated to him that he is not going to get that prescription. Patient denies any other problems at this time. Patient just wants his Neurontin. Patient denies chest pain difficulty breathing shortness breath per patient denies any fever chills or cough per patient denies any abdominal pain patient denies nausea vomiting diarrhea. - Related Data Home Medications Medication Instructions Recorded Confirmed Metoprolol Succinate (ER) [Toprol 50 mg PO DAILY 02/09/23 03/03/23 XL] Previous Rx's Medication Instructions Recorded Paliperidone IM [Invega Sustenna] 234 mg IM QMONTHLY #1 ml 03/01/23 carBAMazepine [TEGretol] 200 mg PO BID 30 Days #60 tab 03/01/23 clonazePAM [KlonoPIN] 0.5 mg PO BID 30 Days #60 tab 03/01/23 Allergies Allergy/AdvReac Type Severity Reaction Status Date / Time aripiprazole [From Abilify] Allergy Unknown Verified 03/23/23 12:14 divalproex sodium Allergy Vomiting Verified 03/23/23 12:14 [From Depakote] haloperidol [From Haldol] Allergy Unknown Verified 03/23/23 12:14 propoxyphene Allergy Unknown Verified 03/23/23 12:14 [From Darvocet-N] ziprasidone [From Geodon] Allergy Unknown Verified 03/23/23 12:14 fluphenazine enanthate AdvReac Severe Trismus Verified 03/23/23 12:14 [From Prolixin] fluphenazine HCl AdvReac Lockjaw Verified 03/23/23 12:14 [From Prolixin] paliperidone [From Invega] AdvReac panic Verified 03/23/23 12:14 attacks risperidone AdvReac Nausea & Verified 03/23/23 12:14 Vomiting Review of Systems ROS Statement: Those systems with pertinent positive or pertinent negative responses have been documented in the HPI. ROS Other: All systems not noted in ROS Statement are negative. Past Medical History Past Medical History: Seizure Disorder Additional Past Medical History / Comment(s): Schizophrenia, right arm fracture, degenerative disc to lower back, and right wrist plate and screws. Last seizure "months ago" History of Any Multi-Drug Resistant Organisms: None Reported Past Surgical History: Orthopedic Surgery Additional Past Surgical History / Comment(s): mouth surgery, reduction of right arm fracture. Past Anesthesia/Blood Transfusion Reactions: No Reported Reaction Past Psychological History: Anxiety, Panic Disorder, Schizophrenia Smoking Status: Former smoker, Never smoker Past Alcohol Use History: Rare Past Drug Use History: Marijuana, Methamphetamine - Past Family History Mother Brother(s) Family Medical History: Unable to Obtain General Exam - General Exam Comments Initial Comments: GENERAL: Patient is well-developed and well-nourished. Patient is nontoxic and well-hyd rated and is in no acute distress. ENT: Neck is soft and supple. No significant lymphadenopathy is noted. Oropharynx is clear. Moist mucous membranes. Neck has full range of motion without elicit ing any pain. EYES: The sclera were anicteric and conjunctiva were pink and moist. Extraocular movements were intact and pupils were equal round and reactive to light. Eyelids were unremarkable. PULMONARY: Unlabored respirations. Good breath sounds bilaterally. No audible rales rhonchi or wheezing was noted. CARDIOVASCULAR: There is a regular rate and rhythm without any murmurs gallops or rubs. ABDOMEN: Soft and nontender with normal bowel sounds. SKIN: Skin is clear with no lesions or rashes and otherwise unremarkable. NEUROLOGIC: Patient is alert and oriented x3. Cranial nerves II through XII are grossly intact. Motor and sensory are also intact. Normal speech, volume and content. Symmetrical smile. MUSCULOSKELETAL: Normal extremities with adequate strength and full range of motion. LYMPHATICS: No significant lymphadenopathy is noted PSYCHIATRIC: Patient is obsessed and just wants Neurontin he denies any suicidal homicidal ideations Limitations: no limitations Course Vital Signs 03/23/23 12:09 Temperature 98.2 F Pulse Rate 115 H Respiratory 20 Rate Blood Pressure 112/75 O2 Sat by Pulse 97 Oximetry Medical Decision Making - Medical Decision Making I spoke with the [facility] about the patient and they're going to try to set up a diversion plan and speak with [facility] about getting him a better plan site doesn't keep coming to the emergency department at this time they do not want him to receive any Neurontin Was pt. sent in by a medical professional or institution (, PA, PSS DELIVERY PROFESSIONAL, urgent care, hospital, or intermediate...) When possible be specific @ -No Did you speak to anyone other than the patient for history (EMS, parent, family, police, friend...)? What history was obtained from this source @ -No Did you review nursing and triage notes (agree or disagree)? Why? @ -I reviewed and agree with nursing and triage notes Were old charts reviewed (outside hosp., previous admission, EMS record, old EKG, old radiological studies, urgent care reports/EKG's, intermediate records)? Report findings @ -I reviewed prior charts on this patient Differential Diagnosis (chest pain, altered mental status, abdominal pain women, abdominal pain men, vaginal bleeding, weakness, fever, dyspnea, syncope, headache, dizziness, GI bleed, back pain, seizure, CVA, palpatations, mental health, musculoskeletal)? @ -Differential Mental Health Depression, anxiety, bipolar, psychosis, schizophrenia, borderline personality, situational depression, adjustment disorder, behavioral disorder, brain tumor, malingering, substance abuse, encephalopathy, medication reaction, dementia, hypothyroidism, degenerative neurologic disorder, lupus.... This is not meant to be all-inclusive list EKG interpreted by me (3pts min.). @ -As above X-rays interpreted by me (1pt min.). @ -None done CT interpreted by me (1pt min.). @ -None done U/S interpreted by me (1pt. min.). @ -None done What testing was considered but not performed or refused? (CT, X-rays, U/S, labs)? Why? @ -None What meds were considered but not given or refused? Why? @ -None Did you discuss the management of the patient with other professionals (professionals i.e. , PA, PSS DELIVERY PROFESSIONAL, lab, RT, psych nurse, social insurance administrator, carpenter and joiner, teacher, air force senior officer, transplant case manager)? Give summary @ -I spoke with [facility] and they wanted the patient discharged to follow-up at [facility] and they will contact [facility] to get a diversion plan Was smoking cessation discussed for >3mins.? @ -No Was critical care preformed (if so, how long)? @ -No Were there social determinants of health that impacted care today? How? (Homelessness, low income, unemployed, alcoholism, drug addiction, transportation, low edu. Level, literacy, decrease access to med. care, senior care, rehab)? @ -No Was there de-escalation of care discussed even if they declined (Discuss DNR or withdrawal of care, Hospice)? DNR status @ -No What co-morbidities impacted this encounter? (DM, HTN, Smoking, COPD, CAD, Cancer, CVA, ARF, Chemo, Hep., AIDS, mental health diagnosis, sleep apnea, morbid obesity)? @ -None Was patient admitted / discharged? Hospital course, mention meds given and route, prescriptions, significant lab abnormalities, going to OR and other pertinent info. @ -Patient was insistent on getting Neurontin EPS did not want him to get around and they will be contacting [facility] Undiagnosed new problem with uncertain prognosis? @ -No Drug Therapy requiring intensive monitoring for toxicity (Heparin, Nitro, Insulin, Cardizem)? @ -No Were any procedures done? @ -No Diagnosis/symptom? @ -Medication refill Acute, or Chronic, or Acute on Chronic? @ -Acute Uncomplicated (without systemic symptoms) or Complicated (systemic symptoms)? @ -Uncomplicated Side effects of treatment? @ -No Exacerbation, Progression, or Severe Exacerbation? @ -No Poses a threat to life or bodily function? How? (Chest pain, [place], [place], pneumonia, PE, COPD, DKA, ARF, appy, cholecystitis, CVA, Diverticulitis, Homicidal, Suicidal, threat to staff... and all critical care pts) @ -No Disposition Clinical Impression: Medication refill Disposition: HOME SELF-CARE Is patient prescribed a controlled substance at d/c from ED?: No Referrals: Anna Gandhi MD [Primary Care Provider] - 1-2 days Time of Disposition: 12:34
== END 2023-03-23 12:44 | disposition home or self-care (01) ==
LOC: EC 12:06
DX: Z76.0 Encounter for issue of repeat prescription (principal); F12.90 Cannabis use, unspecified, uncomplicated; F15.90 Other stimulant use, unspecified, uncomplicated; Z87.891 Personal history of nicotine dependence; Z86.59 Personal history of other mental and behavioral disorders; Z88.6 Allergy status to analgesic agent; Z88.8 Allergy status to other drugs, medicaments and biological substances
CPT/HCPCS: 99284

== ENCOUNTER 2023-04-18 14:22 | Emergency (ER) | payer MEDICARE, OTHER ==
[2023-04-18 14:28] VITALS: RESP 18
--- NOTE | 2023-04-18 16:04 | ED ---
General Adult HPI - General Source: patient, RN notes reviewed, old records reviewed Mode of arrival: ambulatory <Hesham Asher - Last Filed: 04/18/23 20:51> <Grant Alejo - Last Filed: 04/18/23 21:32> - General Chief complaint: Psychiatric Symptoms Stated complaint: med review Time Seen by Provider: 04/18/23 14:45 - History of Present Illness Initial comments: This is a 32-year-old male presents emergency Department wanting to get office in [facility] that he wants to go upstairs to the psych floor invaded intact with him on some details. Patient states he is ordered. But he doesn't care he thinks that medicine is messing with him. Patient states he gets angina once a month. Patient states she thinks that the invaded will eventually making suicidal though he is not currently suicidal and has no plans. Patient denies any homicidal ideations. Patient denies any drinking or drug use. Patient denies any physical complaints (Hesham Asher) - Related Data Home Medications Medication Instructions Recorded Confirmed Metoprolol Succinate (ER) [Toprol 50 mg PO DAILY 02/09/23 04/18/23 XL] Previous Rx's Medication Instructions Recorded Paliperidone IM [Invega Sustenna] 234 mg IM QMONTHLY #1 ml 03/01/23 carBAMazepine [TEGretol] 200 mg PO BID 30 Days #60 tab 03/01/23 clonazePAM [KlonoPIN] 0.5 mg PO BID 30 Days #60 tab 03/01/23 Allergies Allergy/AdvReac Type Severity Reaction Status Date / Time aripiprazole [From Abilify] Allergy Unknown Verified 04/18/23 15:07 divalproex sodium Allergy Vomiting Verified 04/18/23 15:07 [From Depakote] haloperidol [From Haldol] Allergy Unknown Verified 04/18/23 15:07 propoxyphene Allergy Unknown Verified 04/18/23 15:07 [From Darvocet-N] ziprasidone [From Geodon] Allergy Unknown Verified 04/18/23 15:07 fluphenazine enanthate AdvReac Severe Trismus Verified 04/18/23 15:07 [From Prolixin] fluphenazine HCl AdvReac Lockjaw Verified 04/18/23 15:07 [From Prolixin] paliperidone [From Invega] AdvReac panic Verified 04/18/23 15:07 attacks risperidone AdvReac Nausea & Verified 04/18/23 15:07 Vomiting Review of Systems ROS Other: All systems not noted in ROS Statement are negative. <Hesham Asher - Last Filed: 04/18/23 20:51> ROS Other: All systems not noted in ROS Statement are negative. <Grant Alejo - Last Filed: 04/18/23 21:32> ROS Statement: Those systems with pertinent positive or pertinent negative responses have been documented in the HPI. Past Medical History Past Medical History: Seizure Disorder Additional Past Medical History / Comment(s): Schizophrenia, right arm fracture, degenerative disc to lower back, and right wrist plate and screws. Last seizure "months ago" History of Any Multi-Drug Resistant Organisms: None Reported Past Surgical History: Orthopedic Surgery Additional Past Surgical History / Comment(s): mouth surgery, reduction of right arm fracture. Past Anesthesia/Blood Transfusion Reactions: No Reported Reaction Past Psychological History: Anxiety, Panic Disorder, Schizophrenia Smoking Status: Former smoker, Never smoker Past Alcohol Use History: Rare Past Drug Use History: Marijuana, Methamphetamine - Past Family History Mother Brother(s) Family Medical History: Unable to Obtain <Hesham Asher - Last Filed: 04/18/23 20:51> General Exam <Hesham Asher - Last Filed: 04/18/23 20:51> - General Exam Comments Initial Comments: GENERAL: Patient is well-developed and well-nourished. Patient is nontoxic and well- hydrated and is in no acute distress. Patient is very unkept. ENT: Neck is soft and supple. No significant lymphadenopathy is noted. Oropharynx is clear. Moist mucous membranes. Neck has full range of motion without eliciting any pain. There is no thyroid enlargement and no masses were felt. EYES: The sclera were anicteric and conjunctiva were pink and moist. Extraocular movements were intact and pupils were equal round and reactive to light. Eyelids were unremarkable. PULMONARY: Unlabored respirations. Good breath sounds bilaterally. No audible rales rhonchi or wheezing was noted. CARDIOVASCULAR: There is a regular rate and rhythm without any murmurs gallops or rubs. ABDOMEN: Soft and nontender with normal bowel sounds. SKIN: Skin is clear with no lesions or rashes and otherwise unremarkable. NEUROLOGIC: Patient is alert and oriented x3. Cranial nerves II through XII are grossly intact. Motor and sensory are also intact. Normal speech, volume and content. Symmetrical smile. MUSCULOSKELETAL: Normal extremities with adequate strength and full range of motion. LYMPHATICS: No significant lymphadenopathy is noted PSYCHIATRIC: Patient insists in vague is making her feel poorly and wants to be taken off (Hesham Asher) Course Vital Signs 04/18/23 04/18/23 14:24 17:23 Temperature 97.6 F 98.1 F Pulse Rate 112 H 89 Respiratory 18 18 Rate Blood Pressure 117/87 114/73 O2 Sat by Pulse 97 97 Oximetry Medical Decision Making <Hesham Asher - Last Filed: 04/18/23 20:51> <Grant Alejo - Last Filed: 04/18/23 21:32> - Medical Decision Making Was pt. sent in by a medical professional or institution (, PA, MEDICAL FACILITIES SECTION DIRECTOR, urgent care, hospital, or half-way...) When possible be specific @ -[No] Did you speak to anyone other than the patient for history (EMS, parent, family, police, friend...)? What history was obtained from this source @ -[No] Did you review nursing and triage notes (agree or disagree)? Why? @ -[I reviewed and agree with nursing and triage notes] Were old charts reviewed (outside hosp., previous admission, EMS record, old EKG, old radiological studies, urgent care reports/EKG's, half-way records)? Report findings @ -I reviewed prior charts in prior lab work on this patient Differential Diagnosis (chest pain, altered mental status, abdominal pain women, abdominal pain men, vaginal bleeding, weakness, fever, dyspnea, syncope, headache, dizziness, GI bleed, back pain, seizure, CVA, palpatations, mental health, musculoskeletal)? @ -Differential Mental Health Depression, anxiety, bipolar, psychosis, schizophrenia, borderline personality, situational depression, adjustment disorder, behavioral disorder, brain tumor, malingering, substance abuse, encephalopathy, medication reaction, dementia, hypothyroidism, degenerative neurologic disorder, lupus.... This is not meant to be all-inclusive list EKG interpreted by me (3pts min.). @ -[As above] X-rays interpreted by me (1pt min.). @ -[None done] CT interpreted by me (1pt min.). @ -[None done] U/S interpreted by me (1pt. min.). @ -[None done] What testing was considered but not performed or refused? (CT, X-rays, U/S, labs)? Why? @ -[None] What meds were considered but not given or refused? Why? @ -[None] Did you discuss the management of the patient with other professionals (professionals i.e. , PA, MEDICAL FACILITIES SECTION DIRECTOR, lab, RT, psych nurse, high school social studies teacher, annual campaign manager, teacher, hydrographical technical officer, rn field case manager)? Give summary @ -[No] Was smoking cessation discussed for >3mins.? @ -[No] Was critical care preformed (if so, how long)? @ -[No] Were there social determinants of health that impacted care today? How? ( Homelessness, low income, unemployed, alcoholism, drug addiction, transportation, low edu. Level, literacy, decrease access to med. care, usp, rehab)? @ -[No] Was there de-escalation of care discussed even if they declined (Discuss DNR or withdrawal of care, Hospice)? DNR status @ -[No] What co-morbidities impacted this encounter? (DM, HTN, Smoking, COPD, CAD, Cancer, CVA, ARF, Chemo, Hep., AIDS, mental health diagnosis, sleep apnea, morbid obesity)? @ -[None] Was patient admitted / discharged? Hospital course, mention meds given and route, prescriptions, significant lab abnormalities, going to OR and other pertinent info. @ -Patient just kept insisting he wanted to go upstairs to the psychiatric floor and he wanted people to stop giving him in today. I spoke with the [facility] nurse and she was going to try to make it down stairs but she did not she stated she would be down at 7:30 however 7:30 came and went and no nurses come down to see the patient at this time. This patient was signed out to Dr. Alejo at 9:00 (Hesham Asher) Patient had been evaluated by [facility] and felt to be safe for discharge. He has good follow-up as an outpatient. (Grant Alejo) - Lab Data Lab Results 04/18/23 Range/Units 15:58 Urine Opiates Screen Not Detected (NotDetected) Ur Oxycodone Screen Not Detected (NotDetected) Urine Methadone Screen Not Detected (NotDetected) Ur Propoxyphene Screen Not Detected (NotDetected) Ur Barbiturates Screen Not Detected (NotDetected) U Tricyclic Antidepress Not Detected (NotDetected) Ur Phencyclidine Scrn Not Detected (NotDetected) Ur Amphetamines Screen Not Detected (NotDetected) U Methamphetamines Scrn Not Detected (NotDetected) U Benzodiazepines Scrn Not Detected (NotDetected) Urine Cocaine Screen Not Detected (NotDetected) U Marijuana (THC) Screen Not Detected (NotDetected) Disposition <Hesham Asher - Last Filed: 04/18/23 20:51> Is patient prescribed a controlled substance at d/c from ED?: No Time of Disposition: 21:32 <Grant Alejo - Last Filed: 04/18/23 21:32> Clinical Impression: Psychosis, Depression Disposition: HOME SELF-CARE Condition: Fair Instructions (If sedation given, give patient instructions): Depression (ED) Referrals: Anna Gandhi MD [Primary Care Provider] - 1-2 days
[2023-04-18 17:13] LABS: Amphetamine Screen,Urine Not Detected (NotDetected); Barbiturate Screen,Urine Not Detected (NotDetected); Benzodiazepines Screen,Urine Not Detected (NotDetected); Cocaine Screen,Urine Not Detected (NotDetected); Methadone Screen, Urine Not Detected (NotDetected); Opiate Screen,Urine Not Detected (NotDetected); Oxycodone Screen, Urine Not Detected (NotDetected); Phencyclidine Screen,Urine Not Detected (NotDetected); Tricyclic Antidepressant,Urine Not Detected (NotDetected); Urn Cannabinoid Scrn Not Detected (NotDetected)
[2023-04-18 17:24] VITALS: TEMP 98.1
[2023-04-18 21:52] VITALS: BP 140/91; PULSE 91
== END 2023-04-18 21:54 | disposition home or self-care (01) ==
LOC: EC 14:22
DX: F29 Unspecified psychosis not due to a substance or known physiological condition (principal); F32.A Depression, unspecified; F12.90 Cannabis use, unspecified, uncomplicated; F15.90 Other stimulant use, unspecified, uncomplicated; Z88.8 Allergy status to other drugs, medicaments and biological substances; Z87.891 Personal history of nicotine dependence
CPT/HCPCS: 80306; 82075; 99285

== ENCOUNTER 2023-04-19 13:33 | Emergency (ER) | payer MEDICARE ==
--- NOTE | 2023-04-19 14:00 | ED ---
Nausea/Vomiting/Diarrhea HPI - General Source: patient, RN notes reviewed Mode of arrival: ambulatory Limitations: no limitations - History of Present Illness MD complaint: nausea, vomiting <Celine Rodriguez - Last Filed: 04/19/23 13:57> <Hesham Asher - Last Filed: 04/19/23 17:28> - General Chief complaint: Nausea/Vomiting/Diarrhea Stated complaint: vomiting Time Seen by Provider: 04/19/23 13:55 - History of Present Illness Initial comments: This is a 32-year-old male who presents to the emergency department for nausea and vomiting. States that this started this morning. Denies any abdominal pain, diarrhea, or fevers. Also denies any sick contacts. (Celine Rodriguez) This is a 32-year-old male who presents to the emergency department stating he vomited once. Patient also states he wants to the office and they patient has come in many times in the past always assisting he wants to be taken TODAY get but according to EPS he is court ordered to be on. Patient denies any abdominal pain patient denies any diarrhea. Patient was here yesterday did not mention any vomiting yesterday. Patient states he thinks it's related to the [place] even though he got a shot a while ago. Patient denies any fever chills. Patient denies any suicidal homicidal ideations. (Hesham Asher) - Related Data Home Medications Medication Instructions Recorded Confirmed Metoprolol Succinate (ER) [Toprol 50 mg PO DAILY 02/09/23 04/19/23 XL] Previous Rx's Medication Instructions Recorded Paliperidone IM [Invega Sustenna] 234 mg IM QMONTHLY #1 ml 03/01/23 carBAMazepine [TEGretol] 200 mg PO BID 30 Days #60 tab 03/01/23 clonazePAM [KlonoPIN] 0.5 mg PO BID 30 Days #60 tab 03/01/23 Allergies Allergy/AdvReac Type Severity Reaction Status Date / Time aripiprazole [From Abilify] Allergy Unknown Verified 04/19/23 16:48 divalproex sodium Allergy Vomiting Verified 04/19/23 16:48 [From Depakote] haloperidol [From Haldol] Allergy Unknown Verified 04/19/23 16:48 propoxyphene Allergy Unknown Verified 04/19/23 16:48 [From Darvocet-N] ziprasidone [From Geodon] Allergy Unknown Verified 04/19/23 16:48 fluphenazine enanthate AdvReac Severe Trismus Verified 04/19/23 16:48 [From Prolixin] fluphenazine HCl AdvReac Lockjaw Verified 04/19/23 16:48 [From Prolixin] paliperidone [From Invega] AdvReac panic Verified 04/19/23 16:48 attacks risperidone AdvReac Nausea & Verified 04/19/23 16:48 Vomiting Review of Systems ROS Other: All systems not noted in ROS Statement are negative. <Celine Rodriguez - Last Filed: 04/19/23 13:57> ROS Other: All systems not noted in ROS Statement are negative. <Hesham Asher - Last Filed: 04/19/23 17:28> ROS Statement: Those systems with pertinent positive or pertinent negative responses have been documented in the HPI. Past Medical History Past Medical History: Seizure Disorder Additional Past Medical History / Comment(s): Schizophrenia, right arm fracture, degenerative disc to lower back, and right wrist plate and screws. Last seizure "months ago" History of Any Multi-Drug Resistant Organisms: None Reported Past Surgical History: Orthopedic Surgery Additional Past Surgical History / Comment(s): mouth surgery, reduction of right arm fracture. Past Anesthesia/Blood Transfusion Reactions: No Reported Reaction Past Psychological History: Anxiety, Panic Disorder, Schizophrenia Smoking Status: Former smoker, Never smoker Past Alcohol Use History: Rare Past Drug Use History: Marijuana, Methamphetamine - Past Family History Mother Brother(s) Family Medical History: Unable to Obtain <Celine Rodriguez - Last Filed: 04/19/23 13:57> General Exam Limitations: no limitations <Celine Rodriguez - Last Filed: 04/19/23 13:57> <Hesham Asher - Last Filed: 04/19/23 17:28> - General Exam Comments Initial Comments: Visual Physical Exam Vital signs reviewed General: Well-appearing, nontoxic, no acute distress. Head: Normocephalic, atraumatic Eyes: PERRLA, EOMI ENT: Airway patent Chest: Nonlabored breathing Skin: No visual rash, normal skin tone Neuro: Alert and oriented 3 Musculoskeletal: No gross abnormalities (Celine Rodriguez) GENERAL: Patient is well-developed and well-nourished. Patient is nontoxic and well- hydrated and is in no acute distress. ENT: Neck is soft and supple. No significant lymphadenopathy is noted. Oropharynx is clear. Moist mucous membranes. Neck has full range of motion without eliciting any pain. EYES: The sclera were anicteric and conjunctiva were pink and moist. Extraocular mo vements were intact and pupils were equal round and reactive to light. Eyelids were unremarkable. PULMONARY: Unlabored respirations. Good breath sounds bilaterally. No audible rales rhonchi or wheezing was noted. CARDIOVASCULAR: There is a regular rate and rhythm without any murmurs gallops or rubs. ABDOMEN: Soft and nontender with normal bowel sounds. SKIN: Skin is clear with no lesions or rashes and otherwise unremarkable. NEUROLOGIC: Patient is alert and oriented x3. Cranial nerves II through XII are grossly intact. Motor and sensory are also intact. Normal speech, volume and content. Symmetrical smile. MUSCULOSKELETAL: Normal extremities with adequate strength and full range of motion. LYMPHATICS: No significant lymphadenopathy is noted PSYCHIATRIC: Denies suicidal or homicidal ideations (Hesham Asher) Course Vital Signs 04/19/23 13:40 Temperature 98.4 F Pulse Rate 90 Respiratory 20 Rate Blood Pressure 138/92 O2 Sat by Pulse 99 Oximetry Medical Decision Making <Celine Rodriguez - Last Filed: 04/19/23 13:57> <Hesham Asher - Last Filed: 04/19/23 17:28> - Medical Decision Making I performed the QuickNote portion of this chart. Signed Celine Rodriguez PA-C. (Celine Rodriguez) Was pt. sent in by a medical professional or institution (CUATE Cantrell, RESIDENT SERVICES COORDINATOR, urgent care, hospital, or residential...) When possible be specific @ -[facility] patient to the emergency department Did you speak to anyone other than the patient for history (EMS, parent, family, police, friend...)? What history was obtained from this source @ -No Did you review nursing and triage notes (agree or disagree)? Why? @ -I reviewed and agree with nursing and triage notes Were old charts reviewed (outside hosp., previous admission, EMS record, old EKG, old radiological studies, urgent care reports/EKG's, residential records)? Report findings @ -I reviewed prior charts on this patient Differential Diagnosis (chest pain, altered mental status, abdominal pain women, abdominal pain men, vaginal bleeding, weakness, fever, dyspnea, syncope, headache, dizziness, GI bleed, back pain, seizure, CVA, palpatations, mental health, musculoskeletal)? @ -Differential Mental Health Depression, anxiety, bipolar, psychosis, schizophrenia, borderline personality, situational depression, adjustment disorder, behavioral disorder, brain tumor, malingering, substance abuse, encephalopathy, medication reaction, dementia, hypothyroidism, degenerative neurologic disorder, lupus.... This is not meant to be all-inclusive list EKG interpreted by me (3pts min.). @ -As above X-rays interpreted by me (1pt min.). @ -None done CT interpreted by me (1pt min.). @ -None done U/S interpreted by me (1pt. min.). @ -None done What testing was considered but not performed or refused? (CT, X-rays, U/S, labs)? Why? @ -None What meds were considered but not given or refused? Why? @ -None Did you discuss the management of the patient with other professionals (pr ofessionals i.e. , PA, RESIDENT SERVICES COORDINATOR, lab, RT, psych nurse, social media community manager, traffic counter, teacher, credit officer, director of casework department)? Give summary @ -EPS was contacted and they contacted [facility] Was smoking cessation discussed for >3mins.? @ -No Was critical care preformed (if so, how long)? @ -No Were there social determinants of health that impacted care today? How? (Homelessness, low income, unemployed, alcoholism, drug addiction, transportation, low edu. Level, literacy, decrease access to med. care, care home, rehab)? @ -No Was there de-escalation of care discussed even if they declined (Discuss DNR or withdrawal of care, Hospice)? DNR status @ -No What co-morbidities impacted this encounter? (DM, HTN, Smoking, COPD, CAD, Cancer, CVA, ARF, Chemo, Hep., AIDS, mental health diagnosis, sleep apnea, morbid obesity)? @ -None Was patient admitted / discharged? Hospital course, mention meds given and route, prescriptions, significant lab abnormalities, going to OR and other pertinent info. @ -[facility] came to the emergency department and administered the patient's and Invega. After this patient received 1 mg of Ativan by mouth earlier patient did get a Zofran for nausea. Undiagnosed new problem with uncertain prognosis? @ -No Drug Therapy requiring intensive monitoring for toxicity (Heparin, Nitro, Insulin, Cardizem)? @ -No Were any procedures done? @ -No Diagnosis/symptom? @ -Medication administration Acute, or Chronic, or Acute on Chronic? @ -Acute Uncomplicated (without systemic symptoms) or Complicated (systemic symptoms)? @ -Uncomplicated Side effects of treatment? @ -No Exacerbation, Progression, or Severe Exacerbation? @ -No Poses a threat to life or bodily function? How? (Chest pain, [place], [place], pneumonia, PE, COPD, DKA, ARF, appy, cholecystitis, CVA, Diverticulitis, Homicidal, Suicidal, threat to staff... and all critical care pts) @ -No Diagnosis/symptom? @ -Nausea Acute, or Chronic, or Acute on Chronic? @ -Acute Uncomplicated (without systemic symptoms) or Complicated (systemic symptoms)? @ -Uncomplicated Side effects of treatment? @ -none Exacerbation, Progression, or Severe Exacerbation] @ -no Poses a threat to life or bodily function? @ -no (Hesham Asher) Disposition <Celine Rodriguez - Last Filed: 04/19/23 13:57> Is patient prescribed a controlled substance at d/c from ED?: No Time of Disposition: 17:28 <Hesham Asher - Last Filed: 04/19/23 17:28> Clinical Impression: Nausea, Medication administered Disposition: HOME SELF-CARE Instructions (If sedation given, give patient instructions): Acute Nausea and Vomiting (ED) Referrals: Anna Gandhi MD [Primary Care Provider] - 1-2 days
[2023-04-19] MEDS ORDERED: ONDANSETRON ODT 4 MG TAB PO STA (16:07)
[2023-04-19] MEDS ORDERED: LORazepam 1 MG TAB PO STA (16:58)
[2023-04-19] MEDS ORDERED: PALIPERIDONE IM 234 MG/1.5 ML SYG IM ONE (17:30)
[2023-04-19 18:05] VITALS: BP 124/72; PULSE 99; RESP 17; TEMP 98.7
== END 2023-04-19 18:05 | disposition home or self-care (01) ==
LOC: EC 13:33
DX: R11.2 Nausea with vomiting, unspecified (principal); Z51.81 Encounter for therapeutic drug level monitoring; F12.90 Cannabis use, unspecified, uncomplicated; F15.90 Other stimulant use, unspecified, uncomplicated; Z88.8 Allergy status to other drugs, medicaments and biological substances; Z87.891 Personal history of nicotine dependence
CPT/HCPCS: 82075; 96372; 99284

== ENCOUNTER 2023-04-20 11:53 | Emergency (ER) | payer MEDICARE, OTHER ==
[2023-04-20 12:00] VITALS: RESP 16; TEMP 98.1
--- NOTE | 2023-04-20 12:56 | ED ---
Psych HPI - General Chief Complaint: Psychiatric Symptoms Stated Complaint: mental health Time Seen by Provider: 04/20/23 12:05 Source: patient, police Mode of arrival: ambulatory - History of Present Illness Initial Comments: 32-year-old male with past medical history of schizophrenia, drug abuse who presents to the emergency department acutely by police. They have petitioned the patient for leaving his long-term without approval from his guardian. They also state that the patient is not willing to participate in speaking with his care team. They also believe that the patient missed his monthly injection. Patient was seen in the emergency department yesterday and did receive his injection. He states it made him sick and he threw up. He feels as if the injection makes him feel suicidal. He denies harming himself. No alleviating, precipitating or modifying factors - Related Data Home Medications Medication Instructions Recorded Confirmed Metoprolol Succinate (ER) [Toprol 50 mg PO DAILY 02/09/23 04/20/23 XL] Previous Rx's Medication Instructions Recorded Paliperidone IM [Invega Sustenna] 234 mg IM QMONTHLY #1 ml 03/01/23 carBAMazepine [TEGretol] 200 mg PO BID 30 Days #60 tab 03/01/23 Allergies Allergy/AdvReac Type Severity Reaction Status Date / Time aripiprazole [From Abilify] Allergy Unknown Verified 04/20/23 12:00 divalproex sodium Allergy Vomiting Verified 04/20/23 12:00 [From Depakote] haloperidol [From Haldol] Allergy Unknown Verified 04/20/23 12:00 propoxyphene Allergy Unknown Verified 04/20/23 12:00 [From Darvocet-N] ziprasidone [From Geodon] Allergy Unknown Verified 04/20/23 12:00 fluphenazine enanthate AdvReac Severe Trismus Verified 04/20/23 12:00 [From Prolixin] fluphenazine HCl AdvReac Lockjaw Verified 04/20/23 12:00 [From Prolixin] paliperidone [From Invega] AdvReac panic Verified 04/20/23 12:00 attacks risperidone AdvReac Nausea & Verified 04/20/23 12:00 Vomiting Review of Systems ROS Statement: Those systems with pertinent positive or pertinent negative responses have been documented in the HPI. ROS Other: All systems not noted in ROS Statement are negative. Past Medical History Past Medical History: Seizure Disorder Additional Past Medical History / Comment(s): Schizophrenia, right arm fracture, degenerative disc to lower back, and right wrist plate and screws. Last seizure "months ago" History of Any Multi-Drug Resistant Organisms: None Reported Past Surgical History: Orthopedic Surgery Additional Past Surgical History / Comment(s): mouth surgery, reduction of right arm fracture. Past Anesthesia/Blood Transfusion Reactions: No Reported Reaction Past Psychological History: Anxiety, Panic Disorder, Schizophrenia Smoking Status: Former smoker, Never smoker Past Alcohol Use History: Rare Past Drug Use History: Marijuana, Methamphetamine - Past Family History Mother Brother(s) Family Medical History: Unable to Obtain General Exam General appearance: alert, in no apparent distress Head exam: Present: atraumatic, normocephalic, normal inspection Eye exam: Present: normal appearance, PERRL, EOMI. Absent: scleral icterus, conjunctival injection, periorbital swelling ENT exam: Present: normal exam, mucous membranes moist Neck exam: Present: normal inspection. Absent: tenderness, meningismus, lymphadenopathy Respiratory exam: Present: normal lung sounds bilaterally. Absent: respiratory distress, wheezes, rales, rhonchi, stridor Cardiovascular Exam: Present: regular rate, normal rhythm, normal heart sounds. Absent: systolic murmur, diastolic murmur, rubs, gallop, clicks GI/Abdominal exam: Present: soft, normal bowel sounds. Absent: distended, tenderness, guarding, rebound, rigid Extremities exam: Present: normal inspection, full ROM, normal capillary refill. Absent: tenderness, pedal edema, joint swelling, calf tenderness Back exam: Present: normal inspection Neurological exam: Present: alert, oriented X3, CN II-XII intact Psychiatric exam: Present: depressed, flat affect, suicidal ideation Skin exam: Present: warm, dry, intact, normal color. Absent: rash Course Vital Signs 04/20/23 04/20/23 11:54 14:00 Temperature 98.1 F 98.1 F Pulse Rate 94 70 Respiratory 16 16 Rate Blood Pressure 122/87 118/70 O2 Sat by Pulse 94 L 97 Oximetry Medical Decision Making - Medical Decision Making Was pt. sent in by a medical professional or institution (, PA, TECHNICAL ACCOUNT REPRESENTATIVE, urgent care, hospital, or senior living...) When possible be specific @ -Police Did you speak to anyone other than the patient for history (EMS, parent, family, police, friend...)? What history was obtained from this source @ -Police Did you review nursing and triage notes (agree or disagree)? Why? @ -I reviewed and agree with nursing and triage notes Were old charts reviewed (outside hosp., previous admission, EMS record, old EKG, old radiological studies, urgent care reports/EKG's, senior living records)? Report findings @ -Old charts are reviewed. Patient was here yesterday and received his injection Differential Diagnosis (chest pain, altered mental status, abdominal pain women, abdominal pain men, vaginal bleeding, weakness, fever, dyspnea, syncope, headache, dizziness, GI bleed, back pain, seizure, CVA, palpatations, mental health, musculoskeletal)? @ -Differential Mental Health Depression, anxiety, bipolar, psychosis, schizophrenia, borderline personality, situational depression, adjustment disorder, behavioral disorder, brain tumor, malingering, substance abuse, encephalopathy, medication reaction, dementia, hypothyroidism, degenerative neurologic disorder, lupus.... This is not meant to be all-inclusive list EKG interpreted by me (3pts min.). @ -Not completed X-rays interpreted by me (1pt min.). @ -None done CT interpreted by me (1pt min.). @ -None done U/S interpreted by me (1pt. min.). @ -None done What testing was considered but not performed or refused? (CT, X-rays, U/S, labs)? Why? @ -None What meds were considered but not given or refused? Why? @ -None Did you discuss the management of the patient with other professionals (professionals i.e. , PA, TECHNICAL ACCOUNT REPRESENTATIVE, lab, RT, psych nurse, social worker clinical, night shift supervisor, teacher, customer service officer, immigration case manager)? Give summary @ -Spoke with the EPS nurse in order to come evaluate the patient Was smoking cessation discussed for >3mins.? @ -No Was critical care preformed (if so, how long)? @ -No Were there social determinants of health that impacted care today? How? (Homelessness, low income, unemployed, alcoholism, drug addiction, transportation, low edu. Level, literacy, decrease access to med. care, halfway, rehab)? @ -Residing in long-term Was there de-escalation of care discussed even if they declined (Discuss DNR or withdrawal of care, Hospice)? DNR status @ -No What co-morbidities impacted this encounter? (DM, HTN, Smoking, COPD, CAD, Cancer, CVA, ARF, Chemo, Hep., AIDS, mental health diagnosis, sleep apnea, morbid obesity)? @ -Schizophrenia Was patient admitted / discharged? Hospital course, mention meds given and route, prescriptions, significant lab abnormalities, going to OR and other pertinent info. @ -On arrival patient was placed into room 13. A thorough history and physical exam was performed. His BAT is 0. He is reporting to suicidal thoughts. He is evaluated by EPS. They do not feel that the patient needs to stay as he rece ived his injection yesterday. Patient will be discharged home and needs to follow-up on an outpatient basis for his mental health. Return for any new or worsening symptoms. Patient discharged in stable condition Undiagnosed new problem with uncertain prognosis? @ -No Drug Therapy requiring intensive monitoring for toxicity (Heparin, Nitro, Insulin, Cardizem)? @ -No Were any procedures done? @ -No Diagnosis/symptom? @ -Acute depression Acute, or Chronic, or Acute on Chronic? @ -Acute on chronic Uncomplicated (without systemic symptoms) or Complicated (systemic symptoms)? @ -Complicated Side effects of treatment? @ -No Exacerbation, Progression, or Severe Exacerbation? @ -No Poses a threat to life or bodily function? How? (Chest pain, [place], [place], pneumonia, PE, COPD, DKA, ARF, appy, cholecystitis, CVA, Diverticulitis, Homicidal, Suicidal, threat to staff... and all critical care pts) @ -No Disposition Clinical Impression: Depression Disposition: HOME SELF-CARE Condition: Stable Instructions (If sedation given, give patient instructions): Depression (ED) Additional Instructions: Please follow-up with your care team as directed. Continue taking your medications as directed. Return for any new or worsening symptoms Is patient prescribed a controlled substance at d/c from ED?: No Referrals: Anna Gandhi MD [Primary Care Provider] - 1-2 days Time of Disposition: 13:57
[2023-04-20 14:01] VITALS: BP 118/70; PULSE 70
== END 2023-04-20 14:10 | disposition home or self-care (01) ==
LOC: EC 11:53
DX: F32.A Depression, unspecified (principal); F20.9 Schizophrenia, unspecified; F12.90 Cannabis use, unspecified, uncomplicated; F15.90 Other stimulant use, unspecified, uncomplicated; Z88.8 Allergy status to other drugs, medicaments and biological substances; Z87.891 Personal history of nicotine dependence
CPT/HCPCS: 82075; 99285

== ENCOUNTER 2023-06-08 13:03 | Emergency (ER) | payer MEDICARE, OTHER ==
[2023-06-08 16:08] VITALS: RESP 18; TEMP 98.1
--- NOTE | 2023-06-08 16:11 | ED ---
General Adult HPI - General Chief complaint: Psychiatric Symptoms Stated complaint: Petition Time Seen by Provider: 06/08/23 14:28 Source: patient, police, RN notes reviewed, old records reviewed Mode of arrival: ambulatory - History of Present Illness Initial comments: This is a 32-year-old male who was sent in under a court order. Patient was sent in because he was not taking his medications since 20 days behind getting his injection he refuses to follow up as directed as well. Patient himself denies this and states that while he is here he would also like some trazodone and Klonopin. Patient does not like getting the injections. Patient has no physical complaints today. - Related Data Home Medications Medication Instructions Recorded Confirmed Metoprolol Succinate (ER) [Toprol 50 mg PO DAILY 02/09/23 06/08/23 XL] Previous Rx's Medication Instructions Recorded Paliperidone IM [Invega Sustenna] 234 mg IM QMONTHLY #1 ml 03/01/23 carBAMazepine [TEGretol] 200 mg PO BID 30 Days #60 tab 03/01/23 Allergies Allergy/AdvReac Type Severity Reaction Status Date / Time aripiprazole [From Abilify] Allergy Unknown Verified 06/08/23 13:47 divalproex sodium Allergy Vomiting Verified 06/08/23 13:47 [From Depakote] haloperidol [From Haldol] Allergy Unknown Verified 06/08/23 13:47 propoxyphene Allergy Unknown Verified 06/08/23 13:47 [From Darvocet-N] ziprasidone [From Geodon] Allergy Unknown Verified 06/08/23 13:47 fluphenazine enanthate AdvReac Severe Trismus Verified 06/08/23 13:47 [From Prolixin] fluphenazine HCl AdvReac Lockjaw Verified 06/08/23 13:47 [From Prolixin] paliperidone [From Invega] AdvReac panic Verified 06/08/23 13:47 attacks risperidone AdvReac Nausea & Verified 06/08/23 13:47 Vomiting Review of Systems ROS Statement: Those systems with pertinent positive or pertinent negative responses have been documented in the HPI. ROS Other: All systems not noted in ROS Statement are negative. Past Medical History Past Medical History: Seizure Disorder Additional Past Medical History / Comment(s): Schizophrenia, right arm fracture, degenerative disc to lower back, and right wrist plate and screws. Last seizure "months ago" History of Any Multi-Drug Resistant Organisms: None Reported Past Surgical History: Orthopedic Surgery Additional Past Surgical History / Comment(s): mouth surgery, reduction of right arm fracture. Past Anesthesia/Blood Transfusion Reactions: No Reported Reaction Past Psychological History: Anxiety, Panic Disorder, Schizophrenia Smoking Status: Former smoker, Never smoker Past Alcohol Use History: Rare Past Drug Use History: Marijuana, Methamphetamine - Past Family History Mother Brother(s) Family Medical History: Unable to Obtain General Exam - General Exam Comments Initial Comments: GENERAL: Patient is well-developed and well-nourished. Patient is nontoxic and well- hydrated and is in mild distress. ENT: Neck is soft and supple. No significant lymphadenopathy is noted. Oropharynx is clear. Moist mucous membranes. Neck has full range of motion without eliciting any pain. EYES: The sclera were anicteric and conjunctiva were pink and moist. Extraocular movements were intact and pupils were equal round and reactive to light. Eyelids were unremarkable. PULMONARY: Unlabored respirations. Good breath sounds bilaterally. No audible rales rhonchi or wheezing was noted. CARDIOVASCULAR: There is a regular rate and rhythm without any murmurs gallops or rubs. ABDOMEN: Soft and nontender with normal bowel sounds. SKIN: Skin is clear with no lesions or rashes and otherwise unremarkable. NEUROLOGIC: Patient is alert and oriented x3. Cranial nerves II through XII are grossly intact. Motor and sensory are also intact. Normal speech, volume and content. Symmetrical smile. MUSCULOSKELETAL: Normal extremities with adequate strength and full range of motion. LYMPHATICS: No significant lymphadenopathy is noted PSYCHIATRIC: Normal psychiatric evaluation. Patient denies suicidal or homicidal ideations Course Vital Signs 06/08/23 13:43 Temperature 98.1 F Pulse Rate 82 Respiratory 18 Rate Blood Pressure 117/84 O2 Sat by Pulse 99 Oximetry Medical Decision Making - Medical Decision Making Was pt. sent in by a medical professional or institution (, PA, CDL INSTRUCTOR, urgent care, hospital, or residential...) When possible be specific @ -No Did you speak to anyone other than the patient for history (EMS, parent, family, police, friend...)? What history was obtained from this source @ -No Did you review nursing and triage notes (agree or disagree)? Why? @ -I reviewed and agree with nursing and triage notes Were old charts reviewed (outside hosp., previous admission, EMS record, old EKG, old radiological studies, urgent care reports/EKG's, residential records)? Report findings @ -Differential Mental Health Depression, anxiety, bipolar, psychosis, schizophrenia, borderline personality, situational depression, adjustment disorder, behavioral disorder, brain tumor, malingering, substance abuse, encephalopathy, medication reaction, dementia, hypothyroidism, degenerative neurologic disorder, lupus.... This is not meant to be all-inclusive list Differential Diagnosis (chest pain, altered mental status, abdominal pain women, abdominal pain men, vaginal bleeding, weakness, fever, dyspnea, syncope, headache, dizziness, GI bleed, back pain, seizure, CVA, palpatations, mental health, musculoskeletal)? @ -not applicable EKG interpreted by me (3pts min.). @ -As above X-rays interpreted by me (1pt min.). @ -None done CT interpreted by me (1pt min.). @ -None done U/S interpreted by me (1pt. min.). @ -None done What testing was considered but not performed or refused? (CT, X-rays, U/S, labs)? Why? @ -None What meds were considered but not given or refused? Why? @ -None Did you discuss the management of the patient with other professionals (professionals i.e. , PA, CDL INSTRUCTOR, lab, RT, psych nurse, pediatric social worker, hide inspector and sorter, teacher, air defense artillery officer, classification case manager)? Give summary @ -Spoke with the EPS nurse and she spoke with [facility] and they agreed patient could be discharged home after he received his IM injection Was smoking cessation discussed for >3mins.? @ -No Was critical care preformed (if so, how long)? @ -No Were there social determinants of health that impacted care today? How? (Homelessness, low income, unemployed, alcoholism, drug addiction, transportation, low edu. Level, literacy, decrease access to med. care, [facility], rehab)? @ -No Was there de-escalation of care discussed even if they declined (Discuss DNR or withdrawal of care, Hospice)? DNR status @ -No What co-morbidities impacted this encounter? (DM, HTN, Smoking, COPD, CAD, Cancer, CVA, ARF, Chemo, Hep., AIDS, mental health diagnosis, sleep apnea, morbid obesity)? @ -None Was patient admitted / discharged? Hospital course, mention meds given and route, prescriptions, significant lab abnormalities, going to OR and other pertinent info. @ -Patient received his Invega injection here at the hospital and he also was given 1 mg of Ativan by mouth patient was in agreement to go to a halfway Undiagnosed new problem with uncertain prognosis? @ -No Drug Therapy requiring intensive monitoring for toxicity (Heparin, Nitro, Insulin, Cardizem)? @ -No Were any procedures done? @ -No Diagnosis/symptom? @ -Noncompliant with psychiatric medications Acute, or Chronic, or Acute on Chronic? @ -Acute on chronic Uncomplicated (without systemic symptoms) or Complicated (systemic symptoms)? @ -Uncomplicated Side effects of treatment? @ -No Exacerbation, Progression, or Severe Exacerbation? @ -No Poses a threat to life or bodily function? How? (Chest pain, [place], [place], pneumonia, PE, COPD, DKA, ARF, appy, cholecystitis, CVA, Diverticulitis, Homicidal, Suicidal, threat to staff... and all critical care pts) @ -No - Lab Data Lab Results 06/08/23 Range/Units 16:45 Urine Opiates Screen Not Detected (NotDetected) Ur Oxycodone Screen Not Detected (NotDetected) Urine Methadone Screen Not Detected (NotDetected) Ur Propoxyphene Screen Not Detected (NotDetected) Ur Barbiturates Screen Not Detected (NotDetected) U Tricyclic Antidepress Not Detected (NotDetected) Ur Phencyclidine Scrn Not Detected (NotDetected) Ur Amphetamines Screen Detected H (NotDetected) U Methamphetamines Scrn Detected H (NotDetected) U Benzodiazepines Scrn Not Detected (NotDetected) Urine Cocaine Screen Not Detected (NotDetected) U Marijuana (THC) Screen Not Detected (NotDetected) Disposition Clinical Impression: Non-compliant patient, Methamphetamine abuse Disposition: HOME SELF-CARE Condition: Good Instructions (If sedation given, give patient instructions): Methamphetamine Abuse (ED) Additional Instructions: Patient follow-up with [facility], [facility] Is patient prescribed a controlled substance at d/c from ED?: No Referrals: Anna Gandhi MD [Primary Care Provider] - 1-2 days Time of Disposition: 20:20
[2023-06-08 17:16] LABS: Amphetamine Screen,Urine Detected (NotDetected); Barbiturate Screen,Urine Not Detected (NotDetected); Benzodiazepines Screen,Urine Not Detected (NotDetected); Cocaine Screen,Urine Not Detected (NotDetected); Methadone Screen, Urine Not Detected (NotDetected); Opiate Screen,Urine Not Detected (NotDetected); Oxycodone Screen, Urine Not Detected (NotDetected); Phencyclidine Screen,Urine Not Detected (NotDetected); Tricyclic Antidepressant,Urine Not Detected (NotDetected); Urn Cannabinoid Scrn Not Detected (NotDetected)
[2023-06-08] MEDS ORDERED: PALIPERIDONE IM 234 MG/1.5 ML SYG IM STA (17:35)
[2023-06-08] MEDS ORDERED: LORazepam 1 MG TAB PO STA (20:11)
[2023-06-08 20:38] VITALS: BP 116/78; PULSE 84
== END 2023-06-08 20:40 | disposition home or self-care (01) ==
LOC: EC 13:03
DX: F15.10 Other stimulant abuse, uncomplicated (principal); Z91.199 Patient's noncompliance with other medical treatment and regimen due to unspecified reason; F41.9 Anxiety disorder, unspecified; Z87.891 Personal history of nicotine dependence; F12.90 Cannabis use, unspecified, uncomplicated; Z88.8 Allergy status to other drugs, medicaments and biological substances; Z79.899 Other long term (current) drug therapy
CPT/HCPCS: 82075; 80306; 99285; 96372; J2426

== ENCOUNTER 2023-07-20 18:22 | Emergency (ER) | payer MEDICARE, OTHER ==
--- NOTE | 2023-07-20 18:25 | ED ---
General Adult HPI - General Source: RN notes reviewed, old records reviewed - History of Present Illness Radiation: non-radiation Consistency: constant Improves with: none Worsens with: none Associated Symptoms: denies other symptoms Treatments Prior to Arrival: none <Hesham Winter - Last Filed: 07/20/23 22:25> - General Source: RN notes reviewed <Ginny Dodson - Last Filed: 07/20/23 23:21> - General Stated complaint: Allergic reaction to medication Time Seen by Provider: 07/20/23 18:24 - History of Present Illness Initial comments: This is a 32-year-old male to the emergency department for evaluation patient is not homicidal or suicidal, patient has no significant other symptoms. Patient states medication reaction currently (Hesham Winter) 32-year-old male is well-known to this emergency Department presents to the emergency department for medication reaction. Patient reports he was here last week. He reports his side effects started shortly after. (Ginny Dodson) - Related Data Home Medications Medication Instructions Recorded Confirmed Metoprolol Succinate (ER) [Toprol 50 mg PO DAILY 02/09/23 06/08/23 XL] Previous Rx's Medication Instructions Recorded Paliperidone IM [Invega Sustenna] 234 mg IM QMONTHLY #1 ml 03/01/23 carBAMazepine [TEGretol] 200 mg PO BID 30 Days #60 tab 03/01/23 hydrOXYzine pamoate [Vistaril] 25 mg PO BID #14 cap 07/20/23 Allergies Allergy/AdvReac Type Severity Reaction Status Date / Time aripiprazole [From Abilify] Allergy Unknown Verified 07/10/23 22:45 divalproex sodium Allergy Vomiting Verified 07/10/23 22:45 [From Depakote] haloperidol [From Haldol] Allergy Unknown Verified 07/10/23 22:45 propoxyphene Allergy Unknown Verified 07/10/23 22:45 [From Darvocet-N] ziprasidone [From Geodon] Allergy Unknown Verified 07/10/23 22:45 fluphenazine enanthate AdvReac Severe Trismus Verified 07/10/23 22:45 [From Prolixin] fluphenazine HCl AdvReac Lockjaw Verified 07/10/23 22:45 [From Prolixin] paliperidone [From Invega] AdvReac panic Verified 07/10/23 22:45 attacks risperidone AdvReac Nausea & Verified 07/10/23 22:45 Vomiting Review of Systems ROS Other: All systems not noted in ROS Statement are negative. <Hesham Winter - Last Filed: 07/20/23 22:25> ROS Other: All systems not noted in ROS Statement are negative. <Ginny Dodson - Last Filed: 07/20/23 23:21> ROS Statement: Those systems with pertinent positive or pertinent negative responses have been documented in the HPI. Past Medical History Past Medical History: Seizure Disorder Additional Past Medical History / Comment(s): Schizophrenia, right arm fracture, degenerative disc to lower back, and right wrist plate and screws. Last seizure "months ago" History of Any Multi-Drug Resistant Organisms: None Reported Past Surgical History: Orthopedic Surgery Additional Past Surgical History / Comment(s): mouth surgery, reduction of right arm fracture. Past Anesthesia/Blood Transfusion Reactions: No Reported Reaction Past Psychological History: Anxiety, Panic Disorder, Schizophrenia Smoking Status: Former smoker, Never smoker Past Alcohol Use History: Rare Past Drug Use History: Marijuana, Methamphetamine - Past Family History Mother Brother(s) Family Medical History: Unable to Obtain <Ginny Dodson - Last Filed: 07/20/23 23:21> General Exam General appearance: alert, in no apparent distress Head exam: Present: atraumatic, normocephalic, normal inspection Eye exam: Present: normal appearance, PERRL, EOMI. Absent: scleral icterus, conjunctival injection, periorbital swelling ENT exam: Present: normal exam, mucous membranes moist Neck exam: Present: normal inspection. Absent: tenderness, meningismus, lymphadenopathy Respiratory exam: Present: normal lung sounds bilaterally. Absent: respiratory distress, wheezes, rales, rhonchi, stridor Cardiovascular Exam: Present: regular rate, normal rhythm, normal heart sounds. Absent: systolic murmur, diastolic murmur, rubs, gallop, clicks GI/Abdominal exam: Present: soft, normal bowel sounds. Absent: distended, tenderness, guarding, rebound, rigid Extremities exam: Present: normal inspection, full ROM, normal capillary refill. Absent: tenderness, pedal edema, joint swelling, calf tenderness Back exam: Present: normal inspection Neurological exam: Present: alert, oriented X3, CN II-XII intact Psychiatric exam: Present: normal affect, normal mood Skin exam: Present: warm, dry, intact, normal color. Absent: rash <Hesham Winter - Last Filed: 07/20/23 22:25> <Ginny Dodson - Last Filed: 07/20/23 23:21> - General Exam Comments Initial Comments: Visual Physical Exam Vital signs reviewed General: Well-appearing, nontoxic, no acute distress. Head: Normocephalic, atraumatic Eyes: PERRLA, EOMI ENT: Airway patent Chest: Nonlabored breathing Skin: No visual rash, normal skin tone Neuro: Alert and oriented 3 Musculoskeletal: No gross abnormalities I performed the quick note portion of this exam, verbal signature Ginny Dodson PA-C (Ginny Dodson) Course <Hesham Winter - Last Filed: 07/20/23 22:25> Vital Signs 07/20/23 18:33 Temperature 98 F Pulse Rate 90 Respiratory 16 Rate Blood Pressure 134/96 O2 Sat by Pulse 97 Oximetry - Reevaluation(s) Reevaluation #1: 07/20/23 22:25 Medical record is negative (Hesham Winter) Medical Decision Making <Hesham Winter - Last Filed: 07/20/23 22:25> - Medical Decision Making 32 male to the emergency department for evaluation today. Patient presents today for evaluation regards to increased anxiety, patient given Vistaril here in the ER can be discharged home (Hesham Winter) Disposition Is patient prescribed a controlled substance at d/c from ED?: No Time of Disposition: 19:00 <Hesham Winter - Last Filed: 07/20/23 22:25> <Ginny Dodson - Last Filed: 07/20/23 23:21> Clinical Impression: Schizophrenia, acute undifferentiated, Psychosis Disposition: HOME SELF-CARE Condition: Fair Instructions (If sedation given, give patient instructions): Hydroxyzine (By mouth) Prescriptions: hydrOXYzine pamoate [Vistaril] 25 mg PO BID #14 cap Referrals: Anna Gandhi MD [Primary Care Provider] - 1-2 days
[2023-07-20 18:53] VITALS: BP 134/96; PULSE 90; RESP 16; TEMP 98
[2023-07-20] MEDS ORDERED: hydrOXYzine pamoate 25 MG CAP PO STA (19:04)
== END 2023-07-20 19:38 | disposition home or self-care (01) ==
LOC: EC 18:22
DX: F20.9 Schizophrenia, unspecified (principal); F29 Unspecified psychosis not due to a substance or known physiological condition; F12.90 Cannabis use, unspecified, uncomplicated; F15.90 Other stimulant use, unspecified, uncomplicated; Z87.891 Personal history of nicotine dependence; Z88.8 Allergy status to other drugs, medicaments and biological substances
CPT/HCPCS: 99283

== ENCOUNTER 2023-08-06 13:14 | Emergency (ER) | payer MEDICARE, OTHER ==
[2023-08-06 13:24] VITALS: RESP 18
--- NOTE | 2023-08-06 14:12 | ED ---
Psych HPI - General Chief Complaint: Psychiatric Symptoms Stated Complaint: suicidal thoughts Time Seen by Provider: 08/06/23 13:20 Source: patient, RN notes reviewed Mode of arrival: ambulatory Limitations: no limitations - History of Present Illness Initial Comments: 33-year-old male presents emergency Department with chief complaint of easy to talk to psychiatry. Patient states he does not like his Invega injection that he is on. Patient states he was change of his Vistaril. He states is intermittent worsening depression., States she's had suicidal ideation past current. He does have history of drug abuse denies recent use or alcohol use. - Related Data Home Medications Medication Instructions Recorded Confirmed Metoprolol Succinate (ER) [Toprol 50 mg PO DAILY 02/09/23 06/08/23 XL] Previous Rx's Medication Instructions Recorded Paliperidone IM [Invega Sustenna] 234 mg IM QMONTHLY #1 ml 03/01/23 carBAMazepine [TEGretol] 200 mg PO BID 30 Days #60 tab 03/01/23 hydrOXYzine pamoate [Vistaril] 25 mg PO BID #14 cap 07/20/23 Allergies Allergy/AdvReac Type Severity Reaction Status Date / Time aripiprazole [From Abilify] Allergy Unknown Verified 08/06/23 13:19 divalproex sodium Allergy Vomiting Verified 08/06/23 13:19 [From Depakote] haloperidol [From Haldol] Allergy Unknown Verified 08/06/23 13:19 propoxyphene Allergy Unknown Verified 08/06/23 13:19 [From Darvocet-N] ziprasidone [From Geodon] Allergy Unknown Verified 08/06/23 13:19 fluphenazine enanthate AdvReac Severe Trismus Verified 08/06/23 13:19 [From Prolixin] fluphenazine HCl AdvReac Lockjaw Verified 08/06/23 13:19 [From Prolixin] paliperidone [From Invega] AdvReac panic Verified 08/06/23 13:19 attacks risperidone AdvReac Nausea & Verified 08/06/23 13:19 Vomiting Review of Systems ROS Statement: Those systems with pertinent positive or pertinent negative responses have been documented in the HPI. ROS Other: All systems not noted in ROS Statement are negative. Past Medical History Past Medical History: Seizure Disorder Additional Past Medical History / Comment(s): Schizophrenia, right arm fracture, degenerative disc to lower back, and right wrist plate and screws. Last seizure "months ago" History of Any Multi-Drug Resistant Organisms: None Reported Past Surgical History: Orthopedic Surgery Additional Past Surgical History / Comment(s): mouth surgery, reduction of right arm fracture. Past Anesthesia/Blood Transfusion Reactions: No Reported Reaction Past Psychological History: Anxiety, Panic Disorder, Schizophrenia Smoking Status: Former smoker, Never smoker Past Alcohol Use History: Rare Past Drug Use History: Marijuana, Methamphetamine - Past Family History Mother Brother(s) Family Medical History: Unable to Obtain General Exam Limitations: no limitations General appearance: alert, in no apparent distress Head exam: Present: atraumatic, normocephalic, normal inspection ENT exam: Present: normal exam, mucous membranes moist Neck exam: Present: normal inspection, full ROM. Absent: tenderness, meningismus, lymphadenopathy Respiratory exam: Present: normal lung sounds bilaterally. Absent: respiratory distress, wheezes, rales, rhonchi, stridor Cardiovascular Exam: Present: regular rate, normal rhythm, normal heart sounds. Absent: systolic murmur, diastolic murmur, rubs, gallop, clicks Neurological exam: Present: alert, oriented X3, CN II-XII intact Skin exam: Present: warm, dry, intact, normal color. Absent: rash Course Vital Signs 08/06/23 13:16 Temperature 98.6 F Pulse Rate 91 Respiratory 18 Rate Blood Pressure 153/98 O2 Sat by Pulse 99 Oximetry Medical Decision Making - Medical Decision Making Was pt. sent in by a medical professional or institution (, PA, PLANT ENGINEERING MANAGER, urgent care, hospital, or prison...) When possible be specific @ -No Did you speak to anyone other than the patient for history (EMS, parent, family, police, friend...)? What history was obtained from this source @ -No Did you review nursing and triage notes (agree or disagree)? Why? @ -I reviewed and agree with nursing and triage notes Were old charts reviewed (outside hosp., previous admission, EMS record, old EKG, old radiological studies, urgent care reports/EKG's, prison records)? Report findings @ -Review prior notes and psychiatric evaluation Differential Diagnosis (chest pain, altered mental status, abdominal pain women, abdominal pain men, vaginal bleeding, weakness, fever, dyspnea, syncope, headache, dizziness, GI bleed, back pain, seizure, CVA, palpatations, mental health, musculoskeletal)? @ -Differential Mental Health Depression, anxiety, bipolar, psychosis, schizophrenia, borderline personality, situational depression, adjustment disorder, behavioral disorder, brain tumor, malingering, substance abuse, encephalopathy, medication reaction, dementia, hypothyroidism, degenerative neurologic disorder, lupus.... This is not meant to be all-inclusive list EKG interpreted by me (3pts min.). @ -None X-rays interpreted by me (1pt min.). @ -None done CT interpreted by me (1pt min.). @ -None done U/S interpreted by me (1pt. min.). @ -None done What testing was considered but not performed or refused? (CT, X-rays, U/S, labs)? Why? @ -None What meds were considered but not given or refused? Why? @ -None Did you discuss the management of the patient with other professionals (professionals i.e. , PA, PLANT ENGINEERING MANAGER, lab, RT, psych nurse, social services aide, carpet inspector finished, teacher, environmental technical officer, window caser)? Give summary @ -EPS/psychiatry evaluated the patient and recommended Vistaril and discharged back to [facility] Was smoking cessation discussed for >3mins.? @ -No Was critical care preformed (if so, how long)? @ -No Were there social determinants of health that impacted care today? How? (Homelessness, low income, unemployed, alcoholism, drug addiction, transportation, low edu. Level, literacy, decrease access to med. care, long term, rehab)? @ -No Was there de-escalation of care discussed even if they declined (Discuss DNR or withdrawal of care, Hospice)? DNR status @ -No What co-morbidities impacted this encounter? (DM, HTN, Smoking, COPD, CAD, Cancer, CVA, ARF, Chemo, Hep., AIDS, mental health diagnosis, sleep apnea, morbid obesity)? @ -[Bipolar, schizoaffective Was patient admitted / discharged? Hospital course, mention meds given and route, prescriptions, significant lab abnormalities, going to OR and other pertinent info. @ -Discharge patient was evaluated by psychiatric services and recommended be discharged after Vistaril he is not suicidal Undiagnosed new problem with uncertain prognosis? @ -No Drug Therapy requiring intensive monitoring for toxicity (Heparin, Nitro, Insulin, Cardizem)? @ -No Were any procedures done? @ -No Diagnosis/symptom? @ -Schizoaffective Acute, or Chronic, or Acute on Chronic? @ -Acute Uncomplicated (without systemic symptoms) or Complicated (systemic symptoms)? @ -Complicated Side effects of treatment? @ -No Exacerbation, Progression, or Severe Exacerbation? @ -No Poses a threat to life or bodily function? How? (Chest pain, [place], [place], pneumonia, PE, COPD, DKA, ARF, appy, cholecystitis, CVA, Diverticulitis, Homicidal, Suicidal, threat to staff... and all critical care pts) @ -No Disposition Clinical Impression: Schizophrenia Disposition: HOME SELF-CARE Condition: Stable Additional Instructions: Please return to the Emergency Department if symptoms worsen or any other concerns. Is patient prescribed a controlled substance at d/c from ED?: No Referrals: Anna Gandhi MD [Primary Care Provider] - 1-2 days Time of Disposition: 14:11
[2023-08-06] MEDS ORDERED: hydrOXYzine pamoate 25 MG CAP PO STA (14:13)
[2023-08-06 15:20] LABS: Amphetamine Screen,Urine Not Detected (NotDetected); Barbiturate Screen,Urine Not Detected (NotDetected); Benzodiazepines Screen,Urine Not Detected (NotDetected); Cocaine Screen,Urine Not Detected (NotDetected); Methadone Screen, Urine Not Detected (NotDetected); Opiate Screen,Urine Not Detected (NotDetected); Oxycodone Screen, Urine Not Detected (NotDetected); Phencyclidine Screen,Urine Not Detected (NotDetected); Tricyclic Antidepressant,Urine Not Detected (NotDetected); Urn Cannabinoid Scrn Not Detected (NotDetected)
[2023-08-06 15:38] VITALS: BP 138/99; PULSE 88; TEMP 97.9
== END 2023-08-06 15:26 | disposition home or self-care (01) ==
LOC: EC 13:14
DX: F20.9 Schizophrenia, unspecified (principal); F12.90 Cannabis use, unspecified, uncomplicated; F15.90 Other stimulant use, unspecified, uncomplicated; Z87.891 Personal history of nicotine dependence; Z88.8 Allergy status to other drugs, medicaments and biological substances
CPT/HCPCS: 80306; 82075; 99285

== ENCOUNTER 2023-09-23 09:15 | Emergency (ER) | payer MEDICARE, OTHER ==
[2023-09-23] MEDS ORDERED: SODIUM CHLORIDE 0.9% 1,000 ML IV STA (11:34)
[2023-09-23] MEDS ORDERED: LORazepam 1 MG TAB PO STA (12:08)
[2023-09-23 12:29] LABS: Basophils % (A) 1 %; Eosinophils # (A) 0.1 k/uL (0-0.7); Eosinophils % (A) 3 %; HCT 40.1 % (39.0-53.0); HGB 13.7 gm/dL (13.0-17.5); Lymphocytes % (A) 19 %; MCH 30.7 pg (25.0-35.0); MCHC 34.3 g/dL (31.0-37.0); MCV 89.5 fL (80.0-100.0); Mean Platelet Volume 6.8; Monocytes # (A) 0.2 k/uL (0-1.0); Monocytes % (A) 5 %; Neutrophils # (A) 3.6 k/uL (1.3-7.7); Neutrophils % (A) 72 %; Platelet Count 203 k/uL (150-450); RBC 4.48 m/uL (4.30-5.90); RDW 12.7 % (11.5-15.5)
[2023-09-23 12:40] LABS: ALT 27 U/L (4-49); African American GFR (CKD) >90 (>60 ml/min/1.73 sqM); Albumin 4.4 g/dL (3.5-5.0); Anion Gap 11 mmol/L; Blood Urea Nitrogen 17 mg/dL (9-20); Calcium 9.3 mg/dL (8.4-10.2); Carbon Dioxide 25 mmol/L (22-30); Chloride 105 mmol/L (98-107); Glucose 95 mg/dL (74-99); Non-African American GFR(CKD) >90 (>60 ml/min/1.73 sqM); Sodium 141 mmol/L (137-145); Total Bilirubin 0.4 mg/dL (0.2-1.3); Total Protein 7.1 g/dL (6.3-8.2)
[2023-09-23 12:45] LABS: AST 26 U/L (17-59); Alkaline Phosphatase 61 U/L (38-126); Magnesium 2.1 mg/dL (1.6-2.3); Potassium 4.5 mmol/L (3.5-5.1)
--- NOTE | 2023-09-23 13:33 | CT ---
EXAMINATION TYPE: CT brain wo con CT DLP: 1124.8 mGycm, Automated exposure control for dose reduction was used. DATE OF EXAM: 09/23/2023 12:49 PM COMPARISON: 08/25/2022. CLINICAL INDICATION:Male, 33 years old with history of seizure, fall hit head, Seizure, fall hit head TECHNIQUE: Brain: Axial CT images of the brain were obtained with coronal and sagittal reformats created and rev iewed. Contrast used: None. Oral contrast used: None. FINDINGS: Brain: Extra-axial spaces: No abnormal extra-axial fluid collections. Ventricular system: Within normal limits Cerebral parenchyma: No acute intraparenchymal hemorrhage or mass effect. The blake-white junction is well differentiated. Cerebellum: Unremarkable. Mass effect: No evidence of midline shift. Intracranial vasculature: unremarkable Soft tissues: Normal. Calvarium/osseous structures: No depressed skull fracture. Paranasal sinuses and mastoid air cells: Mild scattered paranasal sinus disease. Visualized orbits: Orbital contents are intact. IMPRESSION: No acute intracranial process.
--- NOTE | 2023-09-23 14:49 | ED ---
General Adult HPI - General Chief complaint: Seizure Stated complaint: Seizure Time Seen by Provider: 09/23/23 11:06 Source: patient, RN notes reviewed Mode of arrival: ambulatory Limitations: no limitations - History of Present Illness Initial comments: 33-year-old male presents to the emergency department for chief complaint of seizure. Patient concern emergency department frequently for similar complaints and medication issues. Patient states that he has been off his medication for 10 months and is unable to see his primary care provider due to financial issues. Patient states that he does have an appointment in October. Patient states that he had a seizure earlier today he states that he thinks he fell to the ground and possibly hit his head. He denies significant headache at this time. Patient also states that he feels that he has another seizure coming on. He is unsure how long the seizure lasted today as he states it was unwitnessed. He denies recent illness, fever, chills, cough, congestion - Related Data Home Medications Medication Instructions Recorded Confirmed Metoprolol Succinate (ER) [Toprol 50 mg PO DAILY 02/09/23 06/08/23 XL] Previous Rx's Medication Instructions Recorded Paliperidone IM [Invega Sustenna] 234 mg IM QMONTHLY #1 ml 03/01/23 carBAMazepine [TEGretol] 200 mg PO BID 30 Days #60 tab 03/01/23 hydrOXYzine pamoate [Vistaril] 25 mg PO BID #14 cap 07/20/23 Allergies Allergy/AdvReac Type Severity Reaction Status Date / Time aripiprazole [From Abilify] Allergy Unknown Verified 09/23/23 09:35 divalproex sodium Allergy Vomiting Verified 09/23/23 09:35 [From Depakote] haloperidol [From Haldol] Allergy Unknown Verified 09/23/23 09:35 propoxyphene Allergy Unknown Verified 09/23/23 09:35 [From Darvocet-N] ziprasidone [From Geodon] Allergy Unknown Verified 09/23/23 09:35 fluphenazine enanthate AdvReac Severe Trismus Verified 09/23/23 09:35 [From Prolixin] fluphenazine HCl AdvReac Lockjaw Verified 09/23/23 09:35 [From Prolixin] paliperidone [From Invega] AdvReac panic Verified 09/23/23 09:35 attacks risperidone AdvReac Nausea & Verified 09/23/23 09:35 Vomiting Review of Systems ROS Statement: Those systems with pertinent positive or pertinent negative responses have been documented in the HPI. ROS Other: All systems not noted in ROS Statement are negative. Past Medical History Past Medical History: Seizure Disorder Additional Past Medical History / Comment(s): Schizophrenia, right arm fracture, degenerative disc to lower back, and right wrist plate and screws. Last seizure "months ago" History of Any Multi-Drug Resistant Organisms: None Reported Past Surgical History: Orthopedic Surgery Additional Past Surgical History / Comment(s): mouth surgery, reduction of right arm fracture. Past Anesthesia/Blood Transfusion Reactions: No Reported Reaction Past Psychological History: Anxiety, Panic Disorder, Schizophrenia Smoking Status: Former smoker, Never smoker Past Alcohol Use History: Rare Past Drug Use History: Marijuana, Methamphetamine - Past Family History Mother Brother(s) Family Medical History: Unable to Obtain General Exam Limitations: no limitations General appearance: alert, in no apparent distress Head exam: Present: atraumatic, normocephalic, normal inspection Eye exam: Present: normal appearance, PERRL, EOMI. Absent: scleral icterus, conjunctival injection, periorbital swelling Course Vital Signs 09/23/23 09/23/23 09/23/23 09:33 12:19 12:23 Temperature 98.7 F 97.0 F L Pulse Rate 115 H 65 Respiratory 20 16 22 Rate Blood Pressure 137/88 92/52 92/52 O2 Sat by Pulse 96 92 L Oximetry 09/23/23 09/23/23 09/23/23 12:40 13:00 13:20 Temperature Pulse Rate 84 82 Respiratory 19 16 Rate Blood Pressure 117/81 121/92 128/99 O2 Sat by Pulse 97 Oximetry 09/23/23 09/23/23 09/23/23 13:40 14:00 14:20 Temperature Pulse Rate 96 87 79 Respiratory 19 11 L 15 Rate Blood Pressure 133/98 127/95 114/80 O2 Sat by Pulse Oximetry 09/23/23 09/23/23 09/23/23 14:40 15:00 15:20 Temperature Pulse Rate 95 82 87 Respiratory 14 18 15 Rate Blood Pressure 136/91 129/96 95/62 O2 Sat by Pulse 95 Oximetry 09/23/23 09/23/23 09/23/23 15:40 15:49 16:00 Temperature Pulse Rate 101 H 84 Respiratory 13 17 Rate Blood Pressure 116/83 94/55 94/55 O2 Sat by Pulse Oximetry 09/23/23 09/23/23 09/23/23 16:40 17:00 17:41 Temperature Pulse Rate 75 74 Respiratory 31 H 13 Rate Blood Pressure 99/68 97/63 108/66 O2 Sat by Pulse Oximetry 09/23/23 18:04 Temperature 97.4 F L Pulse Rate 78 Respiratory 20 Rate Blood Pressure O2 Sat by Pulse 97 Oximetry Medical Decision Making - Medical Decision Making Was pt. sent in by a medical professional or institution (, PA, SPINNING MACHINE OPERATOR, urgent care, hospital, or [facility]...) When possible be specific @ -No Did you speak to anyone other than the patient for history (EMS, parent, family, police, friend...)? What history was obtained from this source @ -No Did you review nursing and triage notes (agree or disagree)? Why? @ -I reviewed and agree with nursing and triage notes Were old charts reviewed (outside hosp., previous admission, EMS record, old EKG, old radiological studies, urgent care reports/EKG's, [facility] records)? Report findings @ -No old charts were reviewed Differential Diagnosis (chest pain, altered mental status, abdominal pain women, abdominal pain men, vaginal bleeding, weakness, fever, dyspnea, syncope, headache, dizziness, GI bleed, back pain, seizure, CVA, palpatations, mental health, musculoskeletal)? @ -Differential Seizure: Recurrent seizure disorder, febrile seizure, alcohol withdrawal, stimulants, meningitis, encephalitis, intercranial hemorrhage, intracranial tumor, stroke, eclampsia, thyrotoxicosis, hypocalcemia, hyponatremia, hypernatremia, hypomagnesemia, psychogenic, this is not meant to be an all-inclusive list. EKG interpreted by me (3pts min.). @ -EKG at 12:30 symptoms sinus rhythm rate 68, AL 106, QRS 99, QTQTc [id number] X-rays interpreted by me (1pt min.). @ -None done CT interpreted by me (1pt min.). @ -CT brain shows no acute intracranial hemorrhage U/S interpreted by me (1pt. min.). @ -None done What testing was considered but not performed or refused? (CT, X-rays, U/S, labs)? Why? @ -None What meds were considered but not given or refused? Why? @ -None Did you discuss the management of the patient with other professionals (professionals i.e. , PA, SPINNING MACHINE OPERATOR, lab, RT, psych nurse, director of social work, windows infrastructure engineer, teacher, traffic division commanding officer, casework specialist)? Give summary @ -No Was smoking cessation discussed for >3mins.? @ -No Was critical care preformed (if so, how long)? @ -No Were there social determinants of health that impacted care today? How? (Homelessness, low income, unemployed, alcoholism, drug addiction, transportation, low edu. Level, literacy, decrease access to med. care, [facility], rehab)? @ -No Was there de-escalation of care discussed even if they declined (Discuss DNR or withdrawal of care, Hospice)? DNR status @ -No What co-morbidities impacted this encounter? (DM, HTN, Smoking, COPD, CAD, Cancer, CVA, ARF, Chemo, Hep., AIDS, mental health diagnosis, sleep apnea, morbid obesity)? @ -None Was patient admitted / discharged? Hospital course, mention meds given and route, prescriptions, significant lab abnormalities, going to OR and other pertinent info. @ -Discharged. Patient presented to the emergency department for evaluation of seizure. He has been off his medications for 10 months. Patient states that he has a feeling of seizure coming on.Laboratory studies obtained CBC essentially unremarkable; CMP also unremarkable; patient was given a dose of Ativan in the emergency department by mouth. CT brain shows no acute intracranial hemorrhage Patient does not have any more seizures while in the emergency Department. Patient received 2 L of normal saline. he will be discharged home. Advised to follow up with his neurologist and primary care provider for further medication management. Patient stable at time of discharge. Case discussed with Dr. Ashley. Undiagnosed new problem with uncertain prognosis? @ -No Drug Therapy requiring intensive monitoring for toxicity (Heparin, Nitro, Insulin, Cardizem)? @ -No Were any procedures done? @ -No Diagnosis/symptom? @ -seizure Acute, or Chronic, or Acute on Chronic? @ -acute Uncomplicated (without systemic symptoms) or Complicated (systemic symptoms)? @ -uncomplicated Side effects of treatment? @ -No Exacerbation, Progression, or Severe Exacerbation? @ -No Poses a threat to life or bodily function? How? (Chest pain, USA, [place], pneumonia, PE, COPD, DKA, ARF, appy, cholecystitis, CVA, Diverticulitis, Homicidal, S uicidal, threat to staff... and all critical care pts) @ -No - Lab Data Result diagrams: 09/23/23 12:12 09/23/23 12:12 Lab Results 09/23/23 09/23/23 09/23/23 Range/Units 12:12 12:12 12:12 WBC 5.0 (3.8-10.6) k/uL RBC 4.48 (4.30-5.90) m/uL Hgb 13.7 (13.0-17.5) gm/dL Hct 40.1 (39.0-53.0) % MCV 89.5 (80.0-100.0) fL MCH 30.7 (25.0-35.0) pg MCHC 34.3 (31.0-37.0) g/dL RDW 12.7 (11.5-15.5) % Plt Count 203 (150-450) k/uL MPV 6.8 Neutrophils % 72 % Lymphocytes % 19 % Monocytes % 5 % Eosinophils % 3 % Basophils % 1 % Neutrophils # 3.6 (1.3-7.7) k/uL Lymphocytes # 1.0 (1.0-4.8) k/uL Monocytes # 0.2 (0-1.0) k/uL Eosinophils # 0.1 (0-0.7) k/uL Basophils # 0.0 (0-0.2) k/uL Sodium 141 (137-145) mmol/L Potassium 4.5 (3.5-5.1) mmol/L Chloride 105 (98-107) mmol/L Carbon Dioxide 25 (22-30) mmol/L Anion Gap 11 mmol/L BUN 17 (9-20) mg/dL Creatinine 0.64 L (0.66-1.25) mg/dL Est GFR (CKD-EPI)AfAm >90 (>60 ml/min/1.73 sqM) Est GFR (CKD-EPI)NonAf >90 (>60 ml/min/1.73 sqM) Glucose 95 (74-99) mg/dL Calcium 9.3 (8.4-10.2) mg/dL Magnesium 2.1 (1.6-2.3) mg/dL Total Bilirubin 0.4 (0.2-1.3) mg/dL AST 26 (17-59) U/L ALT 27 (4-49) U/L Alkaline Phosphatase 61 (38-126) U/L Total Protein 7.1 (6.3-8.2) g/dL Albumin 4.4 (3.5-5.0) g/dL Urine Color Light Yellow Urine Appearance Turbid (Clear) Urine pH 7.0 (5.0-8.0) Ur Specific [place] 1.016 (1.001-1.035) Urine Protein Negative (Negative) Urine Glucose (UA) Negative (Negative) Urine Ketones Negative (Negative) Urine Blood Negative (Negative) Urine Nitrite Negative (Negative) Urine Bilirubin Negative (Negative) Urine Urobilinogen <2.0 (<2.0) mg/dL Ur Leukocyte Esterase Negative (Negative) Urine WBC 6 H (0-5) /hpf Ur Squamous Epith Cells <1 (0-4) /hpf Amorphous Sediment Moderate H (None) /hpf Urine Bacteria Rare H (None) /hpf Hyaline Casts 42 H (0-2) /lpf Urine Mucus Rare H (None) /hpf Urine Opiates Screen Not Detected (NotDetected) Ur Oxycodone Screen Not Detected (NotDetected) Urine Methadone Screen Not Detected (NotDetected) Ur Barbiturates Screen Not Detected (NotDetected) U Tricyclic Antidepress Not Detected (NotDetected) Ur Phencyclidine Scrn Not Detected (NotDetected) Ur Amphetamines Screen Not Detected (NotDetected) U Methamphetamines Scrn Not Detected (NotDetected) U Benzodiazepines Scrn Detected H (NotDetected) Urine Cocaine Screen Not Detected (NotDetected) U Marijuana (THC) Screen Detected H (NotDetected) Disposition Clinical Impression: Medication management, Epilepsy Disposition: HOME SELF-CARE Condition: Stable Instructions (If sedation given, give patient instructions): Recurrent Seizures in Adults (ED) Additional Instructions: Please follow up with your primary care provider. Return to the emergency department for new or worsening symptoms. Is patient prescribed a controlled substance at d/c from ED?: No Referrals: Anna Gandhi MD [Primary Care Provider] - 1-2 days
[2023-09-23 15:12] LABS: Amorphous Sediment,Urine Moderate /hpf; Appearance,Urine Turbid (Clear); Bacteria,Urine Rare /hpf; Bilirubin,Urine Negative (Negative); Blood,Urine Negative (Negative); Color,Urine Light Yellow; Glucose,Urine (UA) Negative (Negative); Hyaline Casts,Urine 42 /lpf (0-2); Ketones,Urine Negative (Negative); Leukocyte Esterase,Urine Negative (Negative); Mucus,Urine Rare /hpf; Nitrite,Urine Negative (Negative); Protein,Urine Negative (Negative); Specific Gravity,Urine 1.016 (1.001-1.035); Squamous Epithelial Cell,Urine <1 /hpf (0-4); Urobilinogen,Urine <2.0 mg/dL (<2.0); WBC,Urine 6 /hpf (0-5)
[2023-09-23 15:13] LABS: Amphetamine Screen,Urine Not Detected (NotDetected); Barbiturate Screen,Urine Not Detected (NotDetected); Benzodiazepines Screen,Urine Detected (NotDetected); Cocaine Screen,Urine Not Detected (NotDetected); Methadone Screen, Urine Not Detected (NotDetected); Opiate Screen,Urine Not Detected (NotDetected); Oxycodone Screen, Urine Not Detected (NotDetected); Phencyclidine Screen,Urine Not Detected (NotDetected); Tricyclic Antidepressant,Urine Not Detected (NotDetected); Urn Cannabinoid Scrn Detected (NotDetected)
[2023-09-23] MEDS ORDERED: SODIUM CHLORIDE 0.9% 1,000 ML IV ONE (15:50)
[2023-09-23 17:47] VITALS: BP 108/66
[2023-09-23 18:08] VITALS: PULSE 78; RESP 20; TEMP 97.4
== END 2023-09-23 18:07 | disposition home or self-care (01) ==
LOC: EC 09:15
DX: G40.909 Epilepsy, unspecified, not intractable, without status epilepticus (principal); F12.90 Cannabis use, unspecified, uncomplicated; F15.90 Other stimulant use, unspecified, uncomplicated; Z88.8 Allergy status to other drugs, medicaments and biological substances; Z87.891 Personal history of nicotine dependence
CPT/HCPCS: 36415; 70450; 80053; 80306; 81001; 83735; 85025; 93005; 96360; 96361; 99284

== ENCOUNTER 2023-10-08 16:08 | Emergency (ER) | payer MEDICARE, OTHER ==
[2023-10-08 16:44] VITALS: RESP 16
--- NOTE | 2023-10-08 19:01 | ED ---
Psych HPI - General Chief Complaint: Psychiatric Symptoms Stated Complaint: allergic reaction to shot mental health Time Seen by Provider: 10/08/23 17:54 Source: patient Mode of arrival: ambulatory - History of Present Illness Initial Comments: Patient is a 23-year-old male presented ER with chief complaint of suicide ideation. Patient also is reportedly allergic reaction to his Invega. Patient states he is experience abdominal pain and nausea a couple days after his injection. Patient reports he is also having difficulties with his roommate and [facility]. Patient states he does ot want to but he has thoughts. Denies any fevers, chills, chest pain, shortness of breath, or current abdominal pain. - Related Data Home Medications Medication Instructions Recorded Confirmed Metoprolol Succinate (ER) [Toprol 50 mg PO DAILY 02/09/23 06/08/23 XL] Previous Rx's Medication Instructions Recorded Paliperidone IM [Invega Sustenna] 234 mg IM QMONTHLY #1 ml 03/01/23 carBAMazepine [TEGretol] 200 mg PO BID 30 Days #60 tab 03/01/23 hydrOXYzine pamoate [Vistaril] 25 mg PO BID #14 cap 07/20/23 Allergies Allergy/AdvReac Type Severity Reaction Status Date / Time aripiprazole [From Abilify] Allergy Unknown Verified 10/08/23 16:24 divalproex sodium Allergy Vomiting Verified 10/08/23 16:24 [From Depakote] haloperidol [From Haldol] Allergy Unknown Verified 10/08/23 16:24 propoxyphene Allergy Unknown Verified 10/08/23 16:24 [From Darvocet-N] ziprasidone [From Geodon] Allergy Unknown Verified 10/08/23 16:24 fluphenazine enanthate AdvReac Severe Trismus Verified 10/08/23 16:24 [From Prolixin] fluphenazine HCl AdvReac Lockjaw Verified 10/08/23 16:24 [From Prolixin] paliperidone [From Invega] AdvReac panic Verified 10/08/23 16:24 attacks risperidone AdvReac Nausea & Verified 10/08/23 16:24 Vomiting Review of Systems ROS Statement: Those systems with pertinent positive or pertinent negative responses have been documented in the HPI. ROS Other: All systems not noted in ROS Statement are negative. Past Medical History Past Medical History: Seizure Disorder Additional Past Medical History / Comment(s): Schizophrenia, right arm fracture, degenerative disc to lower back, and right wrist plate and screws. Last seizure "months ago" History of Any Multi-Drug Resistant Organisms: None Reported Past Surgical History: Orthopedic Surgery Additional Past Surgical History / Comment(s): mouth surgery, reduction of right arm fracture. Past Anesthesia/Blood Transfusion Reactions: No Reported Reaction Past Psychological History: Anxiety, Panic Disorder, Schizophrenia Smoking Status: Former smoker, Never smoker Past Alcohol Use History: Rare Past Drug Use History: Marijuana, Methamphetamine - Past Family History Mother Brother(s) Family Medical History: Unable to Obtain General Exam Limitations: no limitations General appearance: alert, in no apparent distress Head exam: Present: atraumatic, normocephalic, normal inspection Eye exam: Present: normal appearance, PERRL, EOMI. Absent: scleral icterus, conjunctival injection, periorbital swelling Respiratory exam: Present: normal lung sounds bilaterally. Absent: respiratory distress, wheezes, rales, rhonchi, stridor Cardiovascular Exam: Present: regular rate, normal rhythm, normal heart sounds. Absent: systolic murmur, diastolic murmur, rubs, gallop, clicks Neurological exam: Present: alert, oriented X3, CN II-XII intact Psychiatric exam: Present: normal affect, normal mood, suicidal ideation Skin exam: Present: warm, dry, intact, normal color. Absent: rash Course Vital Signs 10/08/23 10/08/23 16:22 19:13 Temperature 97.8 F 97.9 F Pulse Rate 119 H 98 Respiratory 16 16 Rate Blood Pressure 131/79 O2 Sat by Pulse 97 98 Oximetry Medical Decision Making - Medical Decision Making Was pt. sent in by a medical professional or institution (, PA, RECOVERER, urgent ca re, hospital, or [facility]...) When possible be specific @ -No Did you speak to anyone other than the patient for history (EMS, parent, family, police, friend...)? What history was obtained from this source @ -No Did you review nursing and triage notes (agree or disagree)? Why? @ -I reviewed and agree with nursing and triage notes Were old charts reviewed (outside hosp., previous admission, EMS record, old EKG, old radiological studies, urgent care reports/EKG's, [facility] records)? Report findings @ -No old charts were reviewed Differential Diagnosis (chest pain, altered mental status, abdominal pain women, abdominal pain men, vaginal bleeding, weakness, fever, dyspnea, syncope, headache, dizziness, GI bleed, back pain, seizure, CVA, palpatations, mental health, musculoskeletal)? @ -Differential Mental Health: Depression, anxiety, bipolar, psychosis, schizophrenia, borderline personality, situational depression, adjustment disorder, behavioral disorder, brain tumor, malingering, substance abuse, encep halopathy, medication reaction, dementia, hypothyroidism, degenerative neurologic disorder, lupus.... This is not meant to be all-inclusive list EKG interpreted by me (3pts min.). @ -None X-rays interpreted by me (1pt min.). @ -None done CT interpreted by me (1pt min.). @ -None done U/S interpreted by me (1pt. min.). @ -None done What testing was considered but not performed or refused? (CT, X-rays, U/S, labs)? Why? @ -None What meds were considered but not given or refused? Why? @ -None Did you discuss the management of the patient with other professionals (professionals i.e. , PA, RECOVERER, lab, RT, psych nurse, social research assistant, crisis counselor, teacher, annual giving officer, case supervisor)? Give summary @ -yes, i discussed this case with Carl from [facility]. He states patient has a safety plan in place and can be discharged with outpatient follow-up. Was smoking cessation discussed for >3mins.? @ -No Was critical care preformed (if so, how long)? @ -No Were there social determinants of health that impacted care today? How? (Homelessness, low income, unemployed, alcoholism, drug addiction, transportation, low edu. Level, literacy, decrease access to med. care, senior living, rehab)? @ -No Was there de-escalation of care discussed even if they declined (Discuss DNR or withdrawal of care, Hospice)? DNR status @ -No What co-morbidities impacted this encounter? (DM, HTN, Smoking, COPD, CAD, Cancer, CVA, ARF, Chemo, Hep., AIDS, mental health diagnosis, sleep apnea, morbid obesity)? @ -None Was patient admitted / discharged? Hospital course, mention meds given and route, prescriptions, significant lab abnormalities, going to OR and other pertinent info. @ -Discharge. Patient is a 35-year-old male presenting to the ER with chief complaint of ALLERGIC reaction to medication. Vitals stable. History and physical exam was completed. Patient was medically cleared for EPS evaluation. Carl from EPS spoke with patient and advised that he is safe for discharge. Return parameter were discussed. Patient will be discharged in stable condition with follow-up to outpatient psych/PCP. Patient expressed understanding and agreement with care plan. Undiagnosed new problem with uncertain prognosis? @ -No Drug Therapy requiring intensive monitoring for toxicity (Heparin, Nitro, Insulin, Cardizem)? @ -No Were any procedures done? @ -None Diagnosis/symptom? @ -Mental health evaluation/ schizophrenia Acute, or Chronic, or Acute on Chronic? @ -Acute on chronic Uncomplicated (without systemic symptoms) or Complicated (systemic symptoms)? @ -uncomplicated Side effects of treatment? @ -No Exacerbation, Progression, or Severe Exacerbation? @ -No Poses a threat to life or bodily function? How? (Chest pain, [place], [place], pneumonia, PE, COPD, DKA, ARF, appy, cholecystitis, CVA, Diverticulitis, Homicidal, Suic idal, threat to staff... and all critical care pts) @ -No Disposition Clinical Impression: Schizophrenia Disposition: HOME SELF-CARE Condition: Stable Additional Instructions: Please follow-up outpatient. Return to ER for any worsening symptoms. Is patient prescribed a controlled substance at d/c from ED?: No Referrals: Anna Gandhi MD [Primary Care Provider] - 1-2 days Time of Disposition: 19:01
[2023-10-08 19:16] VITALS: BP 131/79; PULSE 98; TEMP 97.9
== END 2023-10-08 19:41 | disposition home or self-care (01) ==
LOC: EC 16:08
DX: F20.9 Schizophrenia, unspecified (principal); F12.90 Cannabis use, unspecified, uncomplicated; F15.90 Other stimulant use, unspecified, uncomplicated; Z88.6 Allergy status to analgesic agent; Z88.8 Allergy status to other drugs, medicaments and biological substances; Z86.59 Personal history of other mental and behavioral disorders; Z87.891 Personal history of nicotine dependence
CPT/HCPCS: 82075; 99284

== ENCOUNTER 2023-11-14 12:35 | Emergency (ER) | payer MEDICARE, OTHER ==
[2023-11-14 12:44] VITALS: BP 142/90; PULSE 85; RESP 16; TEMP 97.6
--- NOTE | 2023-11-14 13:06 | ED ---
General Adult HPI - General Chief complaint: Psychiatric Symptoms Stated complaint: Suicidal Ideations Time Seen by Provider: 11/14/23 12:37 Source: patient Mode of arrival: ambulatory Limitations: no limitations - History of Present Illness Initial comments: Dictation was produced using [employer] dictation software. please excuse any grammatical, word or spelling errors. Chief Complaint: 33-year-old male presents to the emergency department for suicidal ideation History of Present Illness: Patient 33-year-old male he is very well-known to our emergency department. He is here often for suicidal ideation psychiatric complaints. Patient states that he feels suicidal. He threatens to tie a cord around his neck. Denies any homicidal ideation. No visual auditory hallucinations. Patient has no medical complaints. The ROS documented in this emergency department record has been reviewed and confirmed by me. Those systems with pertinent positive or negative responses have been documented in the HPI. All other systems are other negative and/or noncontributory. - Related Data Home Medications Medication Instructions Recorded Confirmed Mirtazapine [Remeron] 7.5 mg PO HS 11/14/23 11/14/23 OLANZapine [ZyPREXA] 20 mg PO HS 11/14/23 11/14/23 Omeprazole 40 mg PO DAILY@0800 11/14/23 11/14/23 Paliperidone IM [Invega Sustenna] 234 mg IM Q30D 11/14/23 11/14/23 clonazePAM [KlonoPIN] 0.5 mg PO BID PRN 11/14/23 11/14/23 hydrOXYzine pamoate [Vistaril] 50 mg PO TID PRN 11/14/23 11/14/23 Previous Rx's Medication Instructions Recorded carBAMazepine [TEGretol] 200 mg PO BID 30 Days #60 tab 03/01/23 Allergies Allergy/AdvReac Type Severity Reaction Status Date / Time aripiprazole [From Abilify] Allergy Unknown Verified 11/14/23 14:18 divalproex sodium Allergy Vomiting Verified 11/14/23 14:18 [From Depakote] haloperidol [From Haldol] Allergy Unknown Verified 11/14/23 14:18 propoxyphene Allergy Unknown Verified 11/14/23 14:18 [From Darvocet-N] ziprasidone [From Geodon] Allergy Unknown Verified 11/14/23 14:18 fluphenazine enanthate AdvReac Severe Trismus Verified 11/14/23 14:18 [From Prolixin] fluphenazine HCl AdvReac Lockjaw Verified 11/14/23 14:18 [From Prolixin] paliperidone [From Invega] AdvReac panic Verified 11/14/23 14:18 attacks risperidone AdvReac Nausea & Verified 11/14/23 14:18 Vomiting Review of Systems ROS Statement: Those systems with pertinent positive or pertinent negative responses have been documented in the HPI. ROS Other: All systems not noted in ROS Statement are negative. Past Medical History Past Medical History: Seizure Disorder Additional Past Medical History / Comment(s): Schizophrenia, right arm fracture, degenerative disc to lower back, and right wrist plate and screws. Last seizure "months ago" History of Any Multi-Drug Resistant Organisms: None Reported Past Surgical History: Orthopedic Surgery Additional Past Surgical History / Comment(s): mouth surgery, reduction of right arm fracture. Past Anesthesia/Blood Transfusion Reactions: No Reported Reaction Past Psychological History: Anxiety, Panic Disorder, Schizophrenia Smoking Status: Former smoker, Never smoker Past Alcohol Use History: Rare Past Drug Use History: Marijuana, Methamphetamine - Past Family History Mother Brother(s) Family Medical History: Unable to Obtain General Exam - General Exam Comments Initial Comments: General: Well-appearing, nontoxic, no acute distress. Head: Normocephalic, atraumatic Eyes: PERRLA, EOMI ENT: Airway patent Chest: Nonlabored breathing Skin: No visual rash, normal skin tone Neuro: Alert and oriented 3 Musculoskeletal: No gross abnormalities Limitations: no limitations Course Vital Signs 11/14/23 12:36 Temperature 97.6 F Pulse Rate 85 Respiratory 16 Rate Blood Pressure 142/90 O2 Sat by Pulse 98 Oximetry Medical Decision Making - Medical Decision Making Was pt. sent in by a medical professional or institution (, PA, BODY RECALL INSTRUCTOR, urgent care, hospital, or [place] [facility] facility...) When possible be specific @ -No Did you speak to anyone other than the patient for history (EMS, parent, family, police, friend...)? What history was obtained from this source @ -No Did you review nursing and triage notes (agree or disagree)? Why? @ -I reviewed and agree with nursing and triage notes Were old charts reviewed (outside hosp., previous admission, EMS record, old EKG, old radiological studies, urgent care reports/EKG's, [place] [facility] facility records)? Report findings @ -No old charts were reviewed Differential Diagnosis (chest pain, altered mental status, abdominal pain women, abdominal pain men, vaginal bleeding, musculoskeletal, weakness, fever, dyspnea, syncope, headache, dizziness, GI bleed, back pain, seizure, CVA, palpatations, mental health)? @ -Differential Mental Health: Depression, anxiety, bipolar, psychosis, schizophrenia, borderline personality, situational depression, adjustment disorder, behavioral disorder, brain tumor, malingering, substance abuse, encephalopathy, medication reaction, dementia, hypothyroidism, degenerative neurologic disorder, lupus.... This is not meant to be all-inclusive list EKG interpreted by me (3pts min.). @ -None done X-rays interpreted by me (1pt min.). @ -None done CT interpreted by me (1pt min.). @ -None done U/S interpreted by me (1pt. min.). @ -None done What testing was considered but not performed or refused? (CT, X-rays, U/S, labs)? Why? @ -None What meds were considered but not given or refused? Why? @ -None Did you discuss the management of the patient with other professionals (professionals i.e. , PA, BODY RECALL INSTRUCTOR, lab, RT, psych nurse, social services technician, shipping weigher, teacher, flight radio officer, telehealth case manager)? Give summary @ -Pending discussion with EPS Was smoking cessation discussed for >3mins.? @ -No Was critical care preformed (if so, how long)? @ -No Were there social determinants of health that impacted care today? How? (Homelessness, low income, unemployed, alcoholism, drug addiction, transportation, low edu. Level, literacy, decrease access to med. care, group home, rehab)? @ -No Was there de-escalation of care discussed even if they declined (Discuss DNR or withdrawal of care, Hospice)? DNR status @ -No What co-morbidities impacted this encounter? (DM, HTN, Smoking, COPD, CAD, Cancer, CVA, ARF, Chemo, Hep., AIDS, mental health diagnosis, sleep apnea, morbid obesity)? @ -None Was patient admitted / discharged? Hospital course, mention meds given and route, prescriptions, significant lab abnormalities, going to OR and other pertinent info. @ -33-year-old male presents yet again to the emergency department for suicidal ideation. Vital signs are stable. Physical examination is benign. Patient medically cleared for EPS evaluation. Patient eval by EPS recommended discharge. Undiagnosed new problem with uncertain prognosis? @ -No Drug Therapy requiring intensive monitoring for toxicity (Heparin, Nitro, Insulin, Cardizem)? @ -No Were any procedures done? @ -No Diagnosis/symptom? Acute, or Chronic, or Acute on Chronic? Uncomplicated (without systemic symptoms) or Complicated (systemic symptoms)? @ -Suicidal ideation Side effects of treatment? @ -No Exacerbation, Progression, or Severe Exacerbation? @ -No Poses a threat to life or bodily function? How? (Chest pain, [place], [place], pneumonia, PE, COPD, DKA, ARF, appy, cholecystitis, CVA, Diverticulitis, Homicidal, Suicidal, threat to staff... and all critical care pts) @ -yes Disposition Clinical Impression: Suicidal ideation Disposition: HOME SELF-CARE Condition: Fair Instructions (If sedation given, give patient instructions): Help Prevent Suicide (ED) Is patient prescribed a controlled substance at d/c from ED?: No Referrals: Anna Gandhi MD [Primary Care Provider] - 1-2 days Time of Disposition: 15:01
== END 2023-11-14 15:21 | disposition home or self-care (01) ==
LOC: EC 12:35
DX: R45.851 Suicidal ideations (principal); F41.9 Anxiety disorder, unspecified; F12.90 Cannabis use, unspecified, uncomplicated; Z87.891 Personal history of nicotine dependence; Z88.8 Allergy status to other drugs, medicaments and biological substances; Z79.899 Other long term (current) drug therapy
CPT/HCPCS: 82075; 99284

== ENCOUNTER 2023-12-23 15:37 | Emergency (ER) | payer MEDICARE, OTHER ==
[2023-12-23 16:00] VITALS: TEMP 97.8
--- NOTE | 2023-12-23 16:23 | ED ---
General Adult HPI - General Chief complaint: Seizure Stated complaint: Seizure Time Seen by Provider: 12/23/23 16:00 Source: patient, RN notes reviewed Mode of arrival: ambulatory Limitations: no limitations - History of Present Illness Initial comments: 33-year-old male presents to the emergency department for evaluation of seizure. Patient states that about 15 minutes prior to arrival he experienced a seizure. He is unsure how long this lasted. He was at his place of residence when this happened. He notes that he feels like he has some tremors in his hands. Does have a history of seizure disorder. He reports that he is currently not on any medication for his seizures but does admit that he is on Tegretol. He states he has been off this medication for a few months. He also reports that he was on Invega shots which he was switched to Clozaril "7 weeks ago." He is concerned that the Invega is still in his system. - Related Data Home Medications Medication Instructions Recorded Confirmed Mirtazapine [Remeron] 7.5 mg PO HS 11/14/23 12/23/23 OLANZapine [ZyPREXA] 20 mg PO HS 11/14/23 12/23/23 Omeprazole 40 mg PO DAILY 11/14/23 12/23/23 clonazePAM [KlonoPIN] 0.5 mg PO BID PRN 11/14/23 12/23/23 hydrOXYzine pamoate [Vistaril] 50 mg PO TID PRN 11/14/23 12/23/23 cloZAPine [Clozaril] 200 mg PO HS 12/23/23 12/23/23 Previous Rx's Medication Instructions Recorded carBAMazepine [TEGretol] 200 mg PO BID 30 Days #60 tab 03/01/23 Allergies Allergy/AdvReac Type Severity Reaction Status Date / Time aripiprazole [From Abilify] Allergy Unknown Verified 12/23/23 19:30 divalproex sodium Allergy Vomiting Verified 12/23/23 19:30 [From Depakote] haloperidol [From Haldol] Allergy Unknown Verified 12/23/23 19:30 propoxyphene Allergy Unknown Verified 12/23/23 19:30 [From Darvocet-N] ziprasidone [From Geodon] Allergy Unknown Verified 12/23/23 19:30 fluphenazine enanthate AdvReac Severe Trismus Verified 12/23/23 19:30 [From Prolixin] fluphenazine HCl AdvReac Lock[place]aw Verified 12/23/23 19:30 [From Prolixin] paliperidone [From Invega] AdvReac panic Verified 12/23/23 19:30 attacks risperidone AdvReac Nausea & Verified 12/23/23 19:30 Vomiting Review of Systems ROS Statement: Those systems with pertinent positive or pertinent negative responses have been documented in the HPI. ROS Other: All systems not noted in ROS Statement are negative. Past Medical History Past Medical History: Seizure Disorder Additional Past Medical History / Comment(s): Schizophrenia, right arm fracture, degenerative disc to lower back, and right wrist plate and screws. Last seizure "months ago" History of Any Multi-Drug Resistant Organisms: None Reported Past Surgical History: Orthopedic Surgery Additional Past Surgical History / Comment(s): mouth surgery, reduction of right arm fracture. Past Anesthesia/Blood Transfusion Reactions: No Reported Reaction Past Psychological History: Anxiety, Panic Disorder, Schizophrenia Smoking Status: Former smoker, Never smoker Past Alcohol Use History: Rare Past Drug Use History: Marijuana, Methamphetamine - Past Family History Mother Brother(s) Family Medical History: Unable to Obtain General Exam Limitations: no limitations General appearance: alert, in no apparent distress Head exam: Present: atraumatic, normocephalic, normal inspection Eye exam: Present: normal appearance, PERRL, EOMI. Absent: scleral icterus, conjunctival injection, periorbital swelling ENT exam: Present: normal exam, mucous membranes moist Neck exam: Present: normal inspection. Absent: tenderness, meningismus, lymphadenopathy Respiratory exam: Present: normal lung sounds bilaterally. Absent: respiratory distress, wheezes, rales, rhonchi, stridor Cardiovascular Exam: Present: regular rate, normal rhythm, normal heart sounds. Absent: systolic murmur, diastolic murmur, rubs, gallop, clicks GI/Abdominal exam: Present: soft. Absent: distended, tenderness, guarding, rebound, rigid Extremities exam: Present: normal inspection, full ROM, normal capillary refill. Absent: tenderness, pedal edema, joint swelling, calf tenderness Back exam: Present: normal inspection Neurological exam: Present: alert, oriented X3, CN II-XII intact Psychiatric exam: Present: normal affect, normal mood, other (Hyperverbal) Skin exam: Present: warm, dry, intact, normal color. Absent: rash Course Vital Signs 12/23/23 12/23/23 15:39 20:48 Temperature 97.8 F Pulse Rate 113 H 70 Respiratory 20 18 Rate Blood Pressure 130/84 126/80 O2 Sat by Pulse 99 100 Oximetry Medical Decision Making - Medical Decision Making Was pt. sent in by a medical professional or institution (, PA, CARNIVAL WORKER, urgent ca re, hospital, or longterm...) When possible be specific @ -No Did you speak to anyone other than the patient for history (EMS, parent, family, police, friend...)? What history was obtained from this source @ -No Did you review nursing and triage notes (agree or disagree)? Why? @ -I reviewed and agree with nursing and triage notes Were old charts reviewed (outside hosp., previous admission, EMS record, old EKG, old radiological studies, urgent care reports/EKG's, longterm records)? Report findings @ -No old charts were reviewed Differential Diagnosis (chest pain, altered mental status, abdominal pain women, abdominal pain men, vaginal bleeding, weakness, fever, dyspnea, syncope, headache, dizziness, GI bleed, back pain, seizure, CVA, palpatations, mental health, musculoskeletal)? @ -Differential Seizure: Recurrent seizure disorder, febrile seizure, alcohol withdrawal, stimulants, meningitis, encephalitis, intercranial hemorrhage, intracranial tumor, stroke, eclampsia, thyrotoxicosis, hypocalcemia, hyponatremia, hypernatremia, hypomagnesemia, psychogenic, this is not meant to be an all-inclusive list. EKG interpreted by me (3pts min.). @ -EKG at 1634 shows sinus rhythm with sinus arrhythmia rate 96, VA 120, QRS 93, QT/QTc [id number] A repeat EKG was obtained at 1949 which shows sinus rhythm with short VA, rate 86, VA 112, QRS 94, QTQTc [id number] X-rays interpreted by me (1pt min.). @ -Chest x-ray shows no acute cardiopulmonary process CT interpreted by me (1pt min.). @ -None done U/S interpreted by me (1pt. min.). @ -None done What testing was considered but not performed or refused? (CT, X-rays, U/S, labs)? Why? @ -None What meds were considered but not given or refused? Why? @ -None Did you discuss the management of the patient with other professionals (professionals i.e. , PA, CARNIVAL WORKER, lab, RT, psych nurse, social media executive, him specialists, teacher, contact officer, case operator)? Give summary @ -No Was smoking cessation discussed for >3mins.? @ -No Was critical care preformed (if so, how long)? @ -No Were there social determinants of health that impacted care today? How? (Homelessness, low income, unemployed, alcoholism, drug addiction, transportati on, low edu. Level, literacy, decrease access to med. care, prison, rehab)? @ -No Was there de-escalation of care discussed even if they declined (Discuss DNR or withdrawal of care, Hospice)? DNR status @ -No What co-morbidities impacted this encounter? (DM, HTN, Smoking, COPD, CAD, Cancer, CVA, ARF, Chemo, Hep., AIDS, mental health diagnosis, sleep apnea, morbid obesity)? @ -None Was patient admitted / discharged? Hospital course, mention meds given and route, prescriptions, significant lab abnormalities, going to OR and other pertinent info. @ -Discharged. Patient presented to the emergency department for evaluation of seizure. Reports a seizure disorder. Reports he is currently not on any medications for this but admits to being on Tegretol. He was provided fluids. Labs obtained essentially unremarkable including CBC, CMP, UA, drug screen. Chest x-ray shows no acute cardiopulmonary process. He was monitored in the ED for 4 hours with no further seizure activity. Patient will be discharged home. Advised to follow-up with his primary care provider. Patient is understanding and agreeable with this plan. Patient stable at time of discharge. Strict return precautions discussed. Case discussed with Dr. Butler. Undiagnosed new problem with uncertain prognosis? @ -No Drug Therapy requiring intensive monitoring for toxicity (Heparin, Nitro, Insulin, Cardizem)? @ -No Were any procedures done? @ -No Diagnosis/symptom? @ -Seizure Acute, or Chronic, or Acute on Chronic? @ -Acute Uncomplicated (without systemic symptoms) or Complicated (systemic symptoms)? @ -Uncomplicated Side effects of treatment? @ -No Exacerbation, Progression, or Severe Exacerbation? @ -No Poses a threat to life or bodily function? How? (Chest pain, [place], [place], pneumonia, PE, COPD, DKA, ARF, appy, cholecystitis, CVA, Diverticulitis, Homicidal, Suicidal, threat to staff... and all critical care pts) @ -No - Lab Data Result diagrams: 12/23/23 16:53 12/23/23 17:25 Lab Results 12/23/23 12/23/23 12/23/23 Range/Units 16:39 16:53 17:25 WBC 7.7 (3.8-10.6) k/uL RBC 4.49 (4.30-5.90) m/uL Hgb 13.6 (13.0-17.5) gm/dL Hct 39.7 (39.0-53.0) % MCV 88.3 (80.0-100.0) fL MCH 30.2 (25.0-35.0) pg MCHC 34.1 (31.0-37.0) g/dL RDW 13.8 (11.5-15.5) % Plt Count 189 (150-450) k/uL MPV 7.3 Neutrophils % 82 % Lymphocytes % 12 % Monocytes % 4 % Eosinophils % 1 % Basophils % 0 % Neutrophils # 6.3 (1.3-7.7) k/uL Lymphocytes # 0.9 L (1.0-4.8) k/uL Monocytes # 0.3 (0-1.0) k/uL Eosinophils # 0.1 (0-0.7) k/uL Basophils # 0.0 (0-0.2) k/uL Sodium 140 (137-145) mmol/L Potassium 4.1 (3.5-5.1) mmol/L Chloride 108 H (98-107) mmol/L Carbon Dioxide 23 (22-30) mmol/L Anion Gap 9 mmol/L BUN 15 (9-20) mg/dL Creatinine 0.69 (0.66-1.25) mg/dL Est GFR (CKD-EPI)AfAm >90 (>60 ml/min/1.73 sqM) Est GFR (CKD-EPI)NonAf >90 (>60 ml/min/1.73 sqM) Glucose 100 H (74-99) mg/dL Calcium 8.5 (8.4-10.2) mg/dL Magnesium 2.2 (1.6-2.3) mg/dL Total Bilirubin 0.3 (0.2-1.3) mg/dL AST 21 (17-59) U/L ALT 23 (4-49) U/L Alkaline Phosphatase 77 (38-126) U/L Total Protein 7.0 (6.3-8.2) g/dL Albumin 4.3 (3.5-5.0) g/dL Urine Color Colorless Urine Appearance Clear (Clear) Urine pH 7.0 (5.0-8.0) Ur Specific [place] 1.002 (1.001-1.035) Urine Protein Negative (Negative) Urine Glucose (UA) Negative (Negative) Urine Ketones Negative (Negative) Urine Blood Negative (Negative) Urine Nitrite Negative (Negative) Urine Bilirubin Negative (Negative) Urine Urobilinogen <2.0 (<2.0) mg/dL Ur Leukocyte Esterase Negative (Negative) Urine Opiates Screen Not Detected (NotDetected) Ur Oxycodone Screen Not Detected (NotDetected) Urine Methadone Screen Not Detected (NotDetected) Ur Barbiturates Screen Not Detected (NotDetected) U Tricyclic Antidepress Not Detected (NotDetected) Ur Phencyclidine Scrn Not Detected (NotDetected) Ur Amphetamines Screen Not Detected (NotDetected) U Methamphetamines Scrn Not Detected (NotDetected) U Benzodiazepines Scrn Not Detected (NotDetected) Urine Cocaine Screen Not Detected (NotDetected) U Marijuana (THC) Screen Not Detected (NotDetected) Disposition Clinical Impression: Seizure disorder Disposition: HOME SELF-CARE Condition: Stable Instructions (If sedation given, give patient instructions): Recurrent Seizures in Adults (ED) Additional Instructions: Please follow up with your primary care provider. Return to the emergency department for new or worsening symptoms. Is patient prescribed a controlled substance at d/c from ED?: No Referrals: Latonia King MD [Primary Care Provider] - 1-2 days
[2023-12-23 16:51] LABS: Appearance,Urine Clear (Clear); Bilirubin,Urine Negative (Negative); Blood,Urine Negative (Negative); Color,Urine Colorless; Glucose,Urine (UA) Negative (Negative); Ketones,Urine Negative (Negative); Leukocyte Esterase,Urine Negative (Negative); Nitrite,Urine Negative (Negative); Protein,Urine Negative (Negative); Specific Gravity,Urine 1.002 (1.001-1.035); Urobilinogen,Urine <2.0 mg/dL (<2.0)
[2023-12-23] MEDS: SODIUM CHLORIDE 0.9% 1,000 ML IV STA (16:55)
[2023-12-23 17:00] LABS: Basophils % (A) 0 %; Eosinophils # (A) 0.1 k/uL (0-0.7); Eosinophils % (A) 1 %; HCT 39.7 % (39.0-53.0); HGB 13.6 gm/dL (13.0-17.5); Lymphocytes # (A) 0.9 k/uL (1.0-4.8); Lymphocytes % (A) 12 %; MCH 30.2 pg (25.0-35.0); MCHC 34.1 g/dL (31.0-37.0); MCV 88.3 fL (80.0-100.0); Mean Platelet Volume 7.3; Monocytes # (A) 0.3 k/uL (0-1.0); Monocytes % (A) 4 %; Neutrophils # (A) 6.3 k/uL (1.3-7.7); Neutrophils % (A) 82 %; Platelet Count 189 k/uL (150-450); RBC 4.49 m/uL (4.30-5.90); RDW 13.8 % (11.5-15.5); WBC 7.7 k/uL (3.8-10.6)
[2023-12-23 17:05] LABS: Amphetamine Screen,Urine Not Detected (NotDetected); Barbiturate Screen,Urine Not Detected (NotDetected); Benzodiazepines Screen,Urine Not Detected (NotDetected); Cocaine Screen,Urine Not Detected (NotDetected); Methadone Screen, Urine Not Detected (NotDetected); Opiate Screen,Urine Not Detected (NotDetected); Oxycodone Screen, Urine Not Detected (NotDetected); Phencyclidine Screen,Urine Not Detected (NotDetected); Tricyclic Antidepressant,Urine Not Detected (NotDetected); Urn Cannabinoid Scrn Not Detected (NotDetected)
[2023-12-23 17:52] LABS: ALT 23 U/L (4-49); AST 21 U/L (17-59); African American GFR (CKD) >90 (>60 ml/min/1.73 sqM); Albumin 4.3 g/dL (3.5-5.0); Alkaline Phosphatase 77 U/L (38-126); Anion Gap 9 mmol/L; Blood Urea Nitrogen 15 mg/dL (9-20); Calcium 8.5 mg/dL (8.4-10.2); Carbon Dioxide 23 mmol/L (22-30); Chloride 108 mmol/L (98-107); Glucose 100 mg/dL (74-99); Magnesium 2.2 mg/dL (1.6-2.3); Non-African American GFR(CKD) >90 (>60 ml/min/1.73 sqM); Potassium 4.1 mmol/L (3.5-5.1); Sodium 140 mmol/L (137-145); Total Bilirubin 0.3 mg/dL (0.2-1.3)
--- NOTE | 2023-12-23 20:13 | XR ---
EXAMINATION TYPE: XR chest 2V DATE OF EXAM: 12/23/2023 COMPARISON: 08/06/2021 INDICATION: Left-sided chest pain TECHNIQUE: Frontal and lateral views of the chest are obtained. FINDINGS: The heart size is normal. The pulmonary vasculature is normal. The lungs are clear. IMPRESSION: 1. No acute pulmonary process.
[2023-12-23 21:00] VITALS: BP 126/80; PULSE 70; RESP 18
== END 2023-12-23 20:48 | disposition home or self-care (01) ==
LOC: EC 15:37
DX: G40.909 Epilepsy, unspecified, not intractable, without status epilepticus (principal); F12.90 Cannabis use, unspecified, uncomplicated; F15.90 Other stimulant use, unspecified, uncomplicated; Z88.8 Allergy status to other drugs, medicaments and biological substances; Z87.891 Personal history of nicotine dependence
CPT/HCPCS: 36415; 71046; 80053; 80156; 80306; 81003; 83735; 85025; 93005; 96360; 99284

== ENCOUNTER 2023-12-24 13:01 | Emergency (ER) | payer MEDICARE, OTHER ==
[2023-12-24 13:41] VITALS: TEMP 98.1
--- NOTE | 2023-12-24 13:42 | ED ---
Seizure HPI - General Chief Complaint: Seizure Stated Complaint: Seizure Time Seen by Provider: 12/24/23 13:11 Source: patient, RN notes reviewed Mode of arrival: ambulatory Limitations: no limitations - History of Present Illness Initial Comments: 33-year-old male presents emergency department chief complaint of possible seizure. Patient states that he is walking today states that things felt different in which she states things were happening slow and so he states he lowered himself to the ground. He states that he feels like he may have fell asleep but woke up was on the ground. Patient states he was seen here yesterday for possible seizure. Patient states he had seizures years ago and was seen by neurology. Patient had full workup yesterday. Patient states only changes that are started on Clazuril 1 month ago. He has an appointment in 2 days. Patient offers no other complaints denies any tongue injury denies any head or neck back pain - Related Data Home Medications Medication Instructions Recorded Confirmed Mirtazapine [Remeron] 7.5 mg PO HS 11/14/23 12/23/23 OLANZapine [ZyPREXA] 20 mg PO HS 11/14/23 12/23/23 Omeprazole 40 mg PO DAILY 11/14/23 12/23/23 clonazePAM [KlonoPIN] 0.5 mg PO BID PRN 11/14/23 12/23/23 hydrOXYzine pamoate [Vistaril] 50 mg PO TID PRN 11/14/23 12/23/23 cloZAPine [Clozaril] 200 mg PO HS 12/23/23 12/23/23 Previous Rx's Medication Instructions Recorded carBAMazepine [TEGretol] 200 mg PO BID 30 Days #60 tab 03/01/23 Allergies Allergy/AdvReac Type Severity Reaction Status Date / Time aripiprazole [From Abilify] Allergy Unknown Verified 12/24/23 13:15 divalproex sodium Allergy Vomiting Verified 12/24/23 13:15 [From Depakote] haloperidol [From Haldol] Allergy Unknown Verified 12/24/23 13:15 propoxyphene Allergy Unknown Verified 12/24/23 13:15 [From Darvocet-N] ziprasidone [From Geodon] Allergy Unknown Verified 12/24/23 13:15 fluphenazine enanthate AdvReac Severe Trismus Verified 12/24/23 13:15 [From Prolixin] fluphenazine HCl AdvReac Lockjaw Verified 12/24/23 13:15 [From Prolixin] paliperidone [From Invega] AdvReac panic Verified 12/24/23 13:15 attacks risperidone AdvReac Nausea & Verified 12/24/23 13:15 Vomiting Review of Systems ROS Statement: Those systems with pertinent positive or pertinent negative responses have been documented in the HPI. ROS Other: All systems not noted in ROS Statement are negative. Past Medical History Past Medical History: Seizure Disorder Additional Past Medical History / Comment(s): Schizophrenia, right arm fracture, degenerative disc to lower back, and right wrist plate and screws. Last seizure "months ago" History of Any Multi-Drug Resistant Organisms: None Reported Past Surgical History: Orthopedic Surgery Additional Past Surgical History / Comment(s): mouth surgery, reduction of right arm fracture. Past Anesthesia/Blood Transfusion Reactions: No Reported Reaction Past Psychological History: Anxiety, Panic Disorder, Schizophrenia Smoking Status: Former smoker, Never smoker Past Alcohol Use History: Rare Past Drug Use History: Marijuana, Methamphetamine - Past Family History Mother Brother(s) Family Medical History: Unable to Obtain General Exam Limitations: no limitations General appearance: alert, in no apparent distress Head exam: Present: atraumatic, normocephalic, normal inspection Eye exam: Present: normal appearance, PERRL, EOMI. Absent: scleral icterus, conjunctival injection, periorbital swelling ENT exam: Present: normal exam, normal oropharynx, mucous membranes moist Neck exam: Present: normal inspection, full ROM. Absent: tenderness, meningismus, lymphadenopathy Respiratory exam: Present: normal lung sounds bilaterally. Absent: respiratory distress, wheezes, rales, rhonchi, stridor Cardiovascular Exam: Present: regular rate, normal rhythm, normal heart sounds. Absent: systolic murmur, diastolic murmur, rubs, gallop, clicks Neurological exam: Present: alert, oriented X3, CN II-XII intact, reflexes nor mal. Absent: motor sensory deficit Course Vital Signs 12/24/23 13:14 Temperature 98.1 F Pulse Rate 112 H Respiratory 20 Rate Blood Pressure 142/94 O2 Sat by Pulse 99 Oximetry Medical Decision Making - Medical Decision Making Was pt. sent in by a medical professional or institution (, PA, FASHION JOURNALIST, urgent care, hospital, or half-way...) When possible be specific @ -No Did you speak to anyone other than the patient for history (EMS, parent, family, police, friend...)? What history was obtained from this source @ -No Did you review nursing and triage notes (agree or disagree)? Why? @ -I reviewed and agree with nursing and triage notes Were old charts reviewed (outside hosp., previous admission, EMS record, old EKG, old radiological studies, urgent care reports/EKG's, half-way records)? Report findings @ -[Reviewed prior imaging, laboratory studies and recent ER visit Differential Diagnosis (chest pain, altered mental status, abdominal pain women, abdominal pain men, vaginal bleeding, weakness, fever, dyspnea, syncope, headache, dizziness, GI bleed, back pain, seizure, CVA, palpatations, mental health, musculoskeletal)? @ -Differential Seizure: Recurrent seizure disorder, febrile seizure, alcohol withdrawal, stimulants, meningitis, encephalitis, intercranial hemorrhage, intracranial tumor, stroke, eclampsia, thyrotoxicosis, hypocalcemia, hyponatremia, hypernatremia, hypomagnesemia, psychogenic, this is not meant to be an all-inclusive list. EKG interpreted by me (3pts min.). @ -None X-rays interpreted by me (1pt min.). @ -None done CT interpreted by me (1pt min.). @ -None done U/S interpreted by me (1pt. min.). @ -None done What testing was considered but not performed or refused? (CT, X-rays, U/S, labs)? Why? @ -None What meds were considered but not given or refused? Why? @ -None Did you discuss the management of the patient with other professionals (professionals i.e. , PA, FASHION JOURNALIST, lab, RT, psych nurse, social media assistant, practice physician, teacher, zoology technical officer, protective services case worker)? Give summary @ -No Was smoking cessation discussed for >3mins.? @ -No Was critical care preformed (if so, how long)? @ -No Were there social determinants of health that impacted care today? How? (Homelessness, low income, unemployed, alcoholism, drug addiction, transporta tion, low edu. Level, literacy, decrease access to med. care, halfway, rehab)? @ -No Was there de-escalation of care discussed even if they declined (Discuss DNR or withdrawal of care, Hospice)? DNR status @ -No What co-morbidities impacted this encounter? (DM, HTN, Smoking, COPD, CAD, Cancer, CVA, ARF, Chemo, Hep., AIDS, mental health diagnosis, sleep apnea, morbid obesity)? @ -Drug use history, psych history Was patient admitted / discharged? Hospital course, mention meds given and route, prescriptions, significant lab abnormalities, going to OR and other pertinent info. @ -Discharge patient had full workup yesterday was negative for acute process. Patient reports possible seizure but no clear seizure-like activity. Patient has appointment with his psychiatrist and recommended follow-up with neurology. Patient has no traumatic injuries will be discharged in stable condition. Undiagnosed new problem with uncertain prognosis? @ -No Drug Therapy requiring intensive monitoring for toxicity (Heparin, Nitro, Insulin, Cardizem)? @ -No Were any procedures done? @ -No Diagnosis/symptom? @ -History of seizures, Acute, or Chronic, or Acute on Chronic? @ -Acute Uncomplicated (without systemic symptoms) or Complicated (systemic symptoms)? @ -Upcomplicated Side effects of treatment? @ -No Exacerbation, Progression, or Severe Exacerbation? @ -No Poses a threat to life or bodily function? How? (Chest pain, [place], [place], pneumonia, PE, COPD, DKA, ARF, appy, cholecystitis, CVA, Diverticulitis, Homicidal, Suicidal, threat to staff... and all critical care pts) @ -No Disposition Clinical Impression: History of seizure, Generalized seizure Disposition: HOME SELF-CARE Instructions (If sedation given, give patient instructions): Seizure/Epilepsy Discharge Instructions & Follow-Up Additional Instructions: Please return to the Emergency Department if symptoms worsen or any other concerns. Is patient prescribed a controlled substance at d/c from ED?: No Referrals: Latonia King MD [Primary Care Provider] - 1-2 days Shaila Marquez MD [REFERRING] - 1-2 days David Russell DO [STAFF PHYSICIAN] - 1-2 days Time of Disposition: 13:42
[2023-12-24 14:49] VITALS: BP 125/92; PULSE 86; RESP 18
== END 2023-12-24 14:22 | disposition home or self-care (01) ==
LOC: EC 13:01
DX: G40.409 Other generalized epilepsy and epileptic syndromes, not intractable, without status epilepticus (principal); Z88.8 Allergy status to other drugs, medicaments and biological substances; Z87.891 Personal history of nicotine dependence
CPT/HCPCS: 99284

== ENCOUNTER 2024-06-09 15:41 | Emergency (ER) | payer MEDICARE, OTHER ==
[2024-06-09 15:54] VITALS: RESP 16; TEMP 97.8
--- NOTE | 2024-06-09 16:17 | ED ---
Skin/Abscess/FB HPI - General Source: patient, RN notes reviewed Mode of arrival: ambulatory Limitations: no limitations <Soraya Dudley - Last Filed: 06/09/24 16:16> <Kasey Mcleod - Last Filed: 06/10/24 11:33> - General Chief complaint: Skin/Abscess/Foreign Body Stated complaint: Rash on hands Time Seen by Provider: 06/09/24 16:16 - History of Present Illness Initial comments: Quick note: 33-year-old male presenting to the ER with a chief complaint of bilateral hands rash. He states the pain ongoing for the past 4 days. It has been traveling up his bilateral arms as well. No new soaps lotions or exposures. Patient reports rash is painful and pruritic. Patient has not tried anything [id number] at this time for symptoms. (Soraya Dudley) 33-year-old male with history of bipolar and schizophrenia presents emergency department chief complaint of bilateral pruritic rash that expands approximately to his mid arm. He states that this pain and rash has been present over the past 4 days. He was thought to believe that this rash was due to sun exposure however the pruritus and excoriations have worsened. He denies use of new soaps, lotions, detergents, medications tried new foods. Patient denies shortness of breath, difficulty breathing, lip or tongue swelling. He states that something similar to this has happened in the past and he was prescribed a topical steroid by his primary care provider and symptoms went away. (Kasey Mcleod) - Related Data Home Medications Medication Instructions Recorded Confirmed Mirtazapine [Remeron] 7.5 mg PO HS 11/14/23 12/23/23 OLANZapine [ZyPREXA] 20 mg PO HS 11/14/23 12/23/23 Omeprazole 40 mg PO DAILY 11/14/23 12/23/23 clonazePAM [KlonoPIN] 0.5 mg PO BID PRN 11/14/23 12/23/23 hydrOXYzine pamoate [Vistaril] 50 mg PO TID PRN 11/14/23 12/23/23 cloZAPine [Clozaril] 200 mg PO HS 12/23/23 12/23/23 Previous Rx's Medication Instructions Recorded carBAMazepine [TEGretol] 200 mg PO BID 30 Days #60 tab 03/01/23 Allergies Allergy/AdvReac Type Severity Reaction Status Date / Time aripiprazole [From Abilify] Allergy Unknown Verified 06/09/24 15:54 divalproex sodium Allergy Vomiting Verified 06/09/24 15:54 [From Depakote] haloperidol [From Haldol] Allergy Unknown Verified 06/09/24 15:54 propoxyphene Allergy Unknown Verified 06/09/24 15:54 [From Darvocet-N] ziprasidone [From Geodon] Allergy Unknown Verified 06/09/24 15:54 fluphenazine enanthate AdvReac Severe Trismus Verified 06/09/24 15:54 [From Prolixin] fluphenazine HCl AdvReac Lockjaw Verified 06/09/24 15:54 [From Prolixin] paliperidone [From Invega] AdvReac panic Verified 06/09/24 15:54 attacks risperidone AdvReac Nausea & Verified 06/09/24 15:54 Vomiting Review of Systems ROS Other: All systems not noted in ROS Statement are negative. <Soraya Dudley - Last Filed: 06/09/24 16:16> ROS Other: All systems not noted in ROS Statement are negative. <Kasey Mcleod - Last Filed: 06/10/24 11:33> ROS Statement: Those systems with pertinent positive or pertinent negative responses have been documented in the HPI. Past Medical History Past Medical History: Seizure Disorder Additional Past Medical History / Comment(s): Schizophrenia, right arm fracture, degenerative disc to lower back, and right wrist plate and screws. Last seizure "months ago" History of Any Multi-Drug Resistant Organisms: None Reported Past Surgical History: Orthopedic Surgery Additional Past Surgical History / Comment(s): mouth surgery, reduction of right arm fracture. Past Anesthesia/Blood Transfusion Reactions: No Reported Reaction Past Psychological History: Anxiety, Panic Disorder, Schizophrenia Smoking Status: Former smoker, Never smoker Past Alcohol Use History: None Reported Past Drug Use History: None Reported - Past Family History Mother Brother(s) Family Medical History: Unable to Obtain <Soraya Dudley - Last Filed: 06/09/24 16:16> General Exam Limitations: no limitations <Soraya Dudley - Last Filed: 06/09/24 16:16> General appearance: alert, in no apparent distress Head exam: Present: atraumatic, normocephalic, normal inspection ENT exam: Present: normal exam, mucous membranes moist Neck exam: Present: normal inspection. Absent: tenderness, meningismus, lymphadenopathy Respiratory exam: Present: normal lung sounds bilaterally. Absent: respiratory distress, wheezes, rales, rhonchi, stridor Cardiovascular Exam: Present: regular rate, normal rhythm, normal heart sounds. Absent: systolic murmur, diastolic murmur, rubs, gallop, clicks GI/Abdominal exam: Present: soft, normal bowel sounds. Absent: distended, tenderness, guarding, rebound, rigid Extremities exam: Present: normal inspection, full ROM, normal capillary refill. Absent: tenderness, pedal edema, joint swelling, calf tenderness Back exam: Present: normal inspection Skin exam: Present: warm, dry, rash (excoriations present with dry and cracked skin spreading proximally to the mid upper arm, no signs of abscess, purulence, vesicles, or urticaria), erythema. Absent: cyanosis, diaphoretic, urticaria, vesicles <Kasey Mcleod - Last Filed: 06/10/24 11:33> - General Exam Comments Initial Comments: Visual Physical Exam Vital signs reviewed General: Well-appearing, nontoxic, no acute distress. Head: Normocephalic, atraumatic Eyes: PERRLA, EOMI ENT: Airway patent Chest: Nonlabored breathing Skin: Erythematous scaly rash to bilateral palms, normal skin tone Neuro: Alert and oriented 3 Musculoskeletal: No gross abnormalities (Soraya Dudley) Course Vital Signs 06/09/24 06/09/24 15:51 19:47 Temperature 97.8 F Pulse Rate 108 H 71 Respiratory 16 16 Rate Blood Pressure 148/92 141/97 O2 Sat by Pulse 97 95 Oximetry Medical Decision Making <Soraya Dudley - Last Filed: 06/09/24 16:16> <Kasey Mcleod - Last Filed: 06/10/24 11:33> - Medical Decision Making I performed the quick note portion of this chart. Electronically signed by Soraya Dudley PA-C (Soraya Dudley) Was pt. sent in by a medical professional or institution ([facility] Cantrell, LITERARY WRITER, urgent care, hospital, or senior care...) When possible be specific @ -No Did you speak to anyone other than the patient for history (EMS, parent, family, police, friend...)? What history was obtained from this source @ -No Did you review nursing and triage notes (agree or disagree)? Why? @ -I reviewed and agree with nursing and triage notes Were old charts reviewed (outside hosp., previous admission, EMS record, old EKG, old radiological studies, urgent care reports/EKG's, senior care records)? Report findings @ -No old charts were reviewed Differential Diagnosis (chest pain, altered mental status, abdominal pain women, abdominal pain men, vaginal bleeding, weakness, fever, dyspnea, syncope, headache, dizziness, GI bleed, back pain, seizure, CVA, palpatations, mental health, musculoskeletal)? @ -Dermatitis, eczema, scabies, allergic reaction, this list is not all inclusive EKG interpreted by me (3pts min.). @ -None X-rays interpreted by me (1pt min.). @ -None done CT interpreted by me (1pt min.). @ -None done U/S interpreted by me (1pt. min.). @ -None done What testing was considered but not performed or refused? (CT, X-rays, U/S, labs)? Why? @ -None What meds were considered but not given or refused? Why? @ -None Did you discuss the management of the patient with other professionals (professionals i.e. , PA, LITERARY WRITER, lab, RT, psych nurse, social service liaison, wood carving lathe operator, teacher, landing signal officer, counseling case manager)? Give summary @ -No Was smoking cessation discussed for >3mins.? @ -No Was critical care preformed (if so, how long)? @ -No Were there social determinants of health that impacted care today? How? (Homelessness, low income, unemployed, alcoholism, drug addiction, transportation, low edu. Level, literacy, decrease access to med. care, nursing home, rehab)? @ -No Was there de-escalation of care discussed even if they declined (Discuss DNR or withdrawal of care, Hospice)? DNR status @ -No What co-morbidities impacted this encounter? (DM, HTN, Smoking, COPD, CAD, Cancer, CVA, ARF, Chemo, Hep., AIDS, mental health diagnosis, sleep apnea, morbid obesity)? @ -None Was patient admitted / discharged? Hospital course, mention meds given and route, prescriptions, significant lab abnormalities, going to OR and other pertinent info. @ -Discharge. 33-year-old male with a rash. On physical examination patient is noted to have a pruritic dry rash with multiple ellison of excoriation that extends from bilateral fingertips to mid upper arm. Comprehensive skin examination reveals no signs of rash in other parts of the body including abdomen, legs, feet. Believe that this rash is allergic and/or autoimmune in nature and is patient states that he has had a rash similar to this in the past that was corticosteroid responsive he was provided with a dose of steroids, Benadryl for pruritus and a topical steroid cream. Have patient apply the cream up to 3 times a day for a week and recommend that he follow-up with his primary care provider for further evaluation of rash and return to the emergency department for any new or worsening symptoms. Discussed with Dr. Malhotra Undiagnosed new problem with uncertain prognosis? @ -No Drug Therapy requiring intensive monitoring for toxicity (Heparin, Nitro, Insulin, Cardizem)? @ -No Were any procedures done? @ -No Diagnosis/symptom? @ -dermatitis Acute, or Chronic, or Acute on Chronic? @ -Acute Uncomplicated (without systemic symptoms) or Complicated (systemic symptoms)? @ -uncomplicated Side effects of treatment? @ -No Exacerbation, Progression, or Severe Exacerbation? @ -No Poses a threat to life or bodily function? How? (Chest pain, [place], [place], pneumonia, PE, COPD, DKA, ARF, appy, cholecystitis, CVA, Diverticulitis, Homicidal, Suicidal, threat to staff... and all critical care pts) @ -No (Kasey Mcleod) Disposition <Soraya Dudley - Last Filed: 06/09/24 16:16> Is patient prescribed a controlled substance at d/c from ED?: No Time of Disposition: 18:53 <Kasey Mcleod - Last Filed: 06/10/24 11:33> Clinical Impression: Dermatitis Disposition: HOME SELF-CARE Condition: Good Instructions (If sedation given, give patient instructions): Dermatitis (ED) Additional Instructions: Return to the emergency department for any new or worsening symptoms. Recommend that you use topical steroid cream up to 3 times per day for the next week. Follow-up with your primary care provider for further evaluation. Take Benadryl as needed for pruritus Referrals: Latonia King MD [Primary Care Provider] - 1-2 days
[2024-06-09] MEDS: diphenhydrAMINE 50 MG CAP PO STA (18:43)
[2024-06-09] MEDS: methylPREDNISolone SOD SUCCI 125 MG/2 ML VIAL IM ONE (18:46)
[2024-06-09] MEDS: TRIAMCINOLONE ACET 0.5% CREAM 15 GM TUBE TOPICAL STA (19:44)
[2024-06-09] MEDS: BUTA/APAP/CAF/COD 50-325-40-30 CAP PO STA (19:45)
[2024-06-09 19:50] VITALS: BP 141/97; PULSE 71
== END 2024-06-09 19:47 | disposition home or self-care (01) ==
LOC: EC 15:41
CPT/HCPCS: 96372; 99282

== ENCOUNTER 2024-09-09 10:45 | Emergency (ER) | payer MEDICARE, OTHER ==
[2024-09-09 10:57] VITALS: RESP 20; TEMP 98
--- NOTE | 2024-09-09 11:04 | ED ---
Recheck HPI - General Source: patient, RN notes reviewed Mode of arrival: ambulatory Limitations: no limitations <Celine Rodriguez - Last Filed: 09/09/24 11:03> - General Source: patient, RN notes reviewed Mode of arrival: ambulatory Limitations: no limitations <Silvestre Robison - Last Filed: 09/09/24 12:32> - General Chief Complaint: Recheck/Abnormal Lab/Rx Stated Complaint: withdrawal Time Seen by Provider: 09/09/24 11:00 - History of Present Illness Initial Comments: Quick Note: This is a 34-year-old male who presents to the emergency department for Klonopin withdrawals. States that they stopped prescribing him Klonopin 3 days ago and he is unsure why. Feels like he is now going through withdrawals and would like a dose of Klonopin. (Celine Rodriguez) 34-year-old male presents the emergency department with chief complaint of needing his Klonopin. Patient states he has been in however last few days he states that he is unsure if they are represcribing or not. He is concerned about withdrawing. Patient states he is going to go to [facility] later today. Patient offers no other complaints. Denies being suicidal. (Silvestre Robison) - Related Data Home Medications Medication Instructions Recorded Confirmed Mirtazapine [Remeron] 7.5 mg PO HS 11/14/23 12/23/23 OLANZapine [ZyPREXA] 20 mg PO HS 11/14/23 12/23/23 Omeprazole 40 mg PO DAILY 11/14/23 12/23/23 clonazePAM [KlonoPIN] 0.5 mg PO BID PRN 11/14/23 12/23/23 hydrOXYzine pamoate [Vistaril] 50 mg PO TID PRN 11/14/23 12/23/23 cloZAPine [Clozaril] 200 mg PO HS 12/23/23 12/23/23 Previous Rx's Medication Instructions Recorded carBAMazepine [TEGretol] 200 mg PO BID 30 Days #60 tab 03/01/23 Allergies Allergy/AdvReac Type Severity Reaction Status Date / Time aripiprazole [From Abilify] Allergy Unknown Verified 09/09/24 10:52 divalproex sodium Allergy Vomiting Verified 09/09/24 10:52 [From Depakote] haloperidol [From Haldol] Allergy Unknown Verified 09/09/24 10:52 propoxyphene Allergy Unknown Verified 09/09/24 10:52 [From Darvocet-N] ziprasidone [From Geodon] Allergy Unknown Verified 09/09/24 10:52 fluphenazine enanthate AdvReac Severe Trismus Verified 09/09/24 10:52 [From Prolixin] fluphenazine HCl AdvReac Lockjaw Verified 09/09/24 10:52 [From Prolixin] paliperidone [From Invega] AdvReac panic Verified 09/09/24 10:52 attacks risperidone AdvReac Nausea & Verified 09/09/24 10:52 Vomiting Review of Systems ROS Other: All systems not noted in ROS Statement are negative. <Celine Rodriguez - Last Filed: 09/09/24 11:03> ROS Other: All systems not noted in ROS Statement are negative. <Silvestre Robison - Last Filed: 09/09/24 12:32> ROS Statement: Those systems with pertinent positive or pertinent negative responses have been documented in the HPI. Past Medical History Past Medical History: Seizure Disorder Additional Past Medical History / Comment(s): Schizophrenia, right arm fracture, degenerative disc to lower back, and right wrist plate and screws. Last seizure "months ago" History of Any Multi-Drug Resistant Organisms: None Reported Past Surgical History: Orthopedic Surgery Additional Past Surgical History / Comment(s): mouth surgery, reduction of right arm fracture. Past Anesthesia/Blood Transfusion Reactions: No Reported Reaction Past Psychological History: Anxiety, Panic Disorder, Schizophrenia Smoking Status: Former smoker, Never smoker Past Alcohol Use History: None Reported Past Drug Use History: None Reported - Past Family History Mother Brother(s) Family Medical History: Unable to Obtain <Celine Rodriguez - Last Filed: 09/09/24 11:03> General Exam Limitations: no limitations <Celine Rodriguez - Last Filed: 09/09/24 11:03> General appearance: alert, in no apparent distress Head exam: Present: atraumatic, normocephalic, normal inspection Respiratory exam: Present: normal lung sounds bilaterally. Absent: respiratory distress, wheezes, rales, rhonchi, stridor Cardiovascular Exam: Present: regular rate, normal rhythm, normal heart sounds. Absent: systolic murmur, diastolic murmur, rubs, gallop, clicks Neurological exam: Present: alert, oriented X3, CN II-XII intact Skin exam: Present: warm, dry, intact, normal color. Absent: rash <Silvestre Robison - Last Filed: 09/09/24 12:32> - General Exam Comments Initial Comments: Visual Physical Exam Vital signs reviewed General: Well-appearing, nontoxic, no acute distress. Head: Normocephalic, atraumatic Eyes: PERRLA, EOMI ENT: Airway patent Chest: Nonlabored breathing Skin: No visual rash, normal skin tone Neuro: Alert and oriented 3 Musculoskeletal: No gross abnormalities (Celine Rodriguez) Course Vital Signs 09/09/24 10:51 Temperature 98 F Pulse Rate 97 Respiratory 20 Rate Blood Pressure 134/87 O2 Sat by Pulse 98 Oximetry Medical Decision Making <Celine Rodriguez - Last Filed: 09/09/24 11:03> <Silvestre Robison - Last Filed: 09/09/24 12:32> - Medical Decision Making I performed the QuickNote portion of this chart. Signed Celine Rodriguez PA-C. (Celine Rodriguez) Was pt. sent in by a medical professional or institution (CUATE Cantrell, STUDENT DEVELOPMENT ADVISOR, urgent care, hospital, or half-way...) When possible be specific @ -No Did you speak to anyone other than the patient for history (EMS, parent, family, police, friend...)? What history was obtained from this source @ -No Did you review nursing and triage notes (agree or disagree)? Why? @ -I reviewed and agree with nursing and triage notes Were old charts reviewed (outside hosp., previous admission, EMS record, old EKG, old radiological studies, urgent care reports/EKG's, half-way records)? Report findings @ -No old charts were reviewed Differential Diagnosis (chest pain, altered mental status, abdominal pain women, abdominal pain men, vaginal bleeding, weakness, fever, dyspnea, syncope, headache, dizziness, GI bleed, back pain, seizure, CVA, palpatations, mental health, musculoskeletal)? @ -Anxiety, medication withdrawal EKG interpreted by me (3pts min.). @ -None X-rays interpreted by me (1pt min.). @ -None done CT interpreted by me (1pt min.). @ -None done U/S interpreted by me (1pt. min.). @ -None done What testing was considered but not performed or refused? (CT, X-rays, U/S, labs)? Why? @ -None What meds were considered but not given or refused? Why? @ -None Did you discuss the management of the patient with other professionals (professionals i.e. , PA, STUDENT DEVELOPMENT ADVISOR, lab, RT, psych nurse, high school social studies teacher, field project manager, teacher, enforcement officer, case liner)? Give summary @ -No Was smoking cessation discussed for >3mins.? @ -No Was critical care preformed (if so, how long)? @ -No Were there social determinants of health that impacted care today? How? (Homelessness, low income, unemployed, alcoholism, drug addiction, transportation, low edu. Level, literacy, decrease access to med. care, care home, rehab)? @ -No Was there de-escalation of care discussed even if they declined (Discuss DNR or withdrawal of care, Hospice)? DNR status @ -No What co-morbidities impacted this encounter? (DM, HTN, Smoking, COPD, CAD, Cancer, CVA, ARF, Chemo, Hep., AIDS, mental health diagnosis, sleep apnea, morbid obesity)? @ -None Was patient admitted / discharged? Hospital course, mention meds given and route, prescriptions, significant lab abnormalities, going to OR and other pertinent info. @ -Discharged provided 1 tablet advised he cannot come emergency department daily for this medication he states he has an appointment with [facility] today and will figure out further meds. Undiagnosed new problem with uncertain prognosis? @ -No Drug Therapy requiring intensive monitoring for toxicity (Heparin, Nitro, Insulin, Cardizem)? @ -No Were any procedures done? @ -No Diagnosis/symptom? @ -[Anxiety Acute, or Chronic, or Acute on Chronic? @ -Acute Uncomplicated (without systemic symptoms) or Complicated (systemic symptoms)? @ -Complicated Side effects of treatment? @ -No Exacerbation, Progression, or Severe Exacerbation? @ -No Poses a threat to life or bodily function? How? (Chest pain, [place], [place], pneumonia, PE, COPD, DKA, ARF, appy, cholecystitis, CVA, Diverticulitis, Homicidal, Suicidal, threat to staff... and all critical care pts) @ -No (Silvestre Robison) Disposition <Celine Rodriguez - Last Filed: 09/09/24 11:03> Is patient prescribed a controlled substance at d/c from ED?: No Time of Disposition: 12:32 <Silvestre Robison - Last Filed: 09/09/24 12:32> Clinical Impression: Acute anxiety Disposition: HOME SELF-CARE Condition: Stable Additional Instructions: Follow-up with your doctor for further medications as directed. Please return to the Emergency Department if symptoms worsen or any other concerns. Referrals: Latonia King MD [Primary Care Provider] - 1-2 days
[2024-09-09] MEDS: clonazePAM 0.5 MG TAB PO STA (13:25)
[2024-09-09 13:29] VITALS: BP 123/78; PULSE 78
== END 2024-09-09 13:29 | disposition home or self-care (01) ==
LOC: EC 10:45
DX: F41.9 Anxiety disorder, unspecified (principal); F13.239 Sedative, hypnotic or anxiolytic dependence with withdrawal, unspecified; Z87.891 Personal history of nicotine dependence; Z88.8 Allergy status to other drugs, medicaments and biological substances
CPT/HCPCS: 99283

== ENCOUNTER 2024-09-10 10:14 | Emergency (ER) | payer MEDICARE, OTHER ==
--- NOTE | 2024-09-10 10:31 | ED ---
General Adult HPI - General Stated complaint: needs meds Time Seen by Provider: 09/10/24 10:19 Source: patient, RN notes reviewed Mode of arrival: ambulatory Limitations: no limitations - History of Present Illness Initial comments: 34-year-old male presents emergency department with chief complaint of anxiety. This been ongoing chronic issue. Patient states that he was stopped his medication he had change in medications by his psychiatrist. Patient is requesting Klonopin he was advised yesterday that he would not get any further Klonopin that he needs to follow-up he has had it without several days and is not having withdrawal symptoms. - Related Data Home Medications Medication Instructions Recorded Confirmed Mirtazapine [Remeron] 7.5 mg PO HS 11/14/23 12/23/23 OLANZapine [ZyPREXA] 20 mg PO HS 11/14/23 12/23/23 Omeprazole 40 mg PO DAILY 11/14/23 12/23/23 clonazePAM [KlonoPIN] 0.5 mg PO BID PRN 11/14/23 12/23/23 hydrOXYzine pamoate [Vistaril] 50 mg PO TID PRN 11/14/23 12/23/23 cloZAPine [Clozaril] 200 mg PO HS 12/23/23 12/23/23 Previous Rx's Medication Instructions Recorded carBAMazepine [TEGretol] 200 mg PO BID 30 Days #60 tab 03/01/23 Allergies Allergy/AdvReac Type Severity Reaction Status Date / Time aripiprazole [From Abilify] Allergy Unknown Verified 09/10/24 10:30 divalproex sodium Allergy Vomiting Verified 09/10/24 10:30 [From Depakote] haloperidol [From Haldol] Allergy Unknown Verified 09/10/24 10:30 propoxyphene Allergy Unknown Verified 09/10/24 10:30 [From Darvocet-N] ziprasidone [From Geodon] Allergy Unknown Verified 09/10/24 10:30 fluphenazine enanthate AdvReac Severe Trismus Verified 09/10/24 10:30 [From Prolixin] fluphenazine HCl AdvReac Lockjaw Verified 09/10/24 10:30 [From Prolixin] paliperidone [From Invega] AdvReac panic Verified 09/10/24 10:30 attacks risperidone AdvReac Nausea & Verified 09/10/24 10:30 Vomiting Review of Systems ROS Statement: Those systems with pertinent positive or pertinent negative responses have been documented in the HPI. ROS Other: All systems not noted in ROS Statement are negative. Past Medical History Past Medical History: Seizure Disorder Additional Past Medical History / Comment(s): Schizophrenia, right arm fracture, degenerative disc to lower back, and right wrist plate and screws. Last seizure "months ago" History of Any Multi-Drug Resistant Organisms: None Reported Past Surgical History: Orthopedic Surgery Additional Past Surgical History / Comment(s): mouth surgery, reduction of right arm fracture. Past Anesthesia/Blood Transfusion Reactions: No Reported Reaction Past Psychological History: Anxiety, Panic Disorder, Schizophrenia Smoking Status: Former smoker, Never smoker Past Alcohol Use History: None Reported Past Drug Use History: None Reported - Past Family History Mother Brother(s) Family Medical History: Unable to Obtain General Exam Limitations: no limitations General appearance: alert, in no apparent distress Head exam: Present: atraumatic, normocephalic, normal inspection Respiratory exam: Present: normal lung sounds bilaterally. Absent: respiratory distress, wheezes, rales, rhonchi, stridor Cardiovascular Exam: Present: regular rate, normal rhythm, normal heart sounds. Absent: systolic murmur, diastolic murmur, rubs, gallop, clicks Neurological exam: Present: alert, oriented X3, CN II-XII intact Psychiatric exam: Present: normal affect, normal mood Course Vital Signs 09/10/24 10:27 Temperature 98.8 F Pulse Rate 86 Respiratory 18 Rate Blood Pressure 133/90 O2 Sat by Pulse 96 Oximetry Medical Decision Making - Medical Decision Making Was pt. sent in by a medical professional or institution (, PA, LINE SERVICE ATTENDANT, urgent care, hospital, or [facility]...) When possible be specific @ -No Did you speak to anyone other than the patient for history (EMS, parent, family, police, friend...)? What history was obtained from this source @ -No Did you review nursing and triage notes (agree or disagree)? Why? @ -I reviewed and agree with nursing and triage notes Were old charts reviewed (outside hosp., previous admission, EMS record, old EKG, old radiological studies, urgent care reports/EKG's, [facility] records)? Report findings @ -No old charts were reviewed Differential Diagnosis (chest pain, altered mental status, abdominal pain women, abdominal pain men, vaginal bleeding, weakness, fever, dyspnea, syncope, headache, dizziness, GI bleed, back pain, seizure, CVA, palpatations, mental health, musculoskeletal)? @ -Anxiety, medication abuse EKG interpreted by me (3pts min.). @ -None none X-rays interpreted by me (1pt min.). @ -None done CT interpreted by me (1pt min.). @ -None done U/S interpreted by me (1pt. min.). @ -None done What testing was considered but not performed or refused? (CT, X-rays, U/S, labs)? Why? @ -None What meds were considered but not given or refused? Why? @ -None Did you discuss the management of the patient with other professionals (pr ofessionals i.e. , PA, LINE SERVICE ATTENDANT, lab, RT, psych nurse, administrator social welfare, cook taco, teacher, sanitation officer, upper caser)? Give summary @ -No Was smoking cessation discussed for >3mins.? @ -No Was critical care preformed (if so, how long)? @ -No Were there social determinants of health that impacted care today? How? (Homelessness, low income, unemployed, alcoholism, drug addiction, transportation, low edu. Level, literacy, decrease access to med. care, long term, rehab)? @ -No Was there de-escalation of care discussed even if they declined (Discuss DNR or withdrawal of care, Hospice)? DNR status @ -No What co-morbidities impacted this encounter? (DM, HTN, Smoking, COPD, CAD, Cancer, CVA, ARF, Chemo, Hep., AIDS, mental health diagnosis, sleep apnea, morbid obesity)? @ -None Was patient admitted / discharged? Hospital course, mention meds given and route, prescriptions, significant lab abnormalities, going to OR and other pertinent info. @ -Discharged patient advised needs follow-up with severe psychiatrist for medications patient is not suicidal homicidal patient is drug-seeking will be discharged. Undiagnosed new problem with uncertain prognosis? @ -No Drug Therapy requiring intensive monitoring for toxicity (Heparin, Nitro, Insulin, Cardizem)? @ -No Were any procedures done? @ -No Diagnosis/symptom? @ -Drug seeking, drug abuse, anxiety Acute, or Chronic, or Acute on Chronic? @ -Acute Uncomplicated (without systemic symptoms) or Complicated (systemic symptoms)? @ -Uncomplicated Side effects of treatment? @ -No Exacerbation, Progression, or Severe Exacerbation? @ -No Poses a threat to life or bodily function? How? (Chest pain, [place], [place], pneumonia, PE, COPD, DKA, ARF, appy, cholecystitis, CVA, Diverticulitis, Homicidal, Suicidal, threat to staff... and all critical care pts) @ -No Disposition Clinical Impression: Acute anxiety, Drug abuse Disposition: HOME SELF-CARE Condition: Stable Additional Instructions: You must follow-up with your primary care doctor or psychiatrist regarding further medications. Please return to the Emergency Department if symptoms wor sen or any other concerns. Is patient prescribed a controlled substance at d/c from ED?: No Referrals: Latonia King MD [Primary Care Provider] - 1-2 days Time of Disposition: 10:31
[2024-09-10 10:43] VITALS: BP 133/90; PULSE 86; RESP 18; TEMP 98.8
== END 2024-09-10 12:15 | disposition home or self-care (01) ==
LOC: EC 10:14
DX: F41.9 Anxiety disorder, unspecified (principal); F19.10 Other psychoactive substance abuse, uncomplicated; Z87.891 Personal history of nicotine dependence; Z88.8 Allergy status to other drugs, medicaments and biological substances
CPT/HCPCS: 99283

== ENCOUNTER 2024-10-16 11:12 | Inpatient (IN) | payer MEDICARE, MEDICAID ==
--- NOTE | 2024-10-16 11:14 | ED ---
General Adult HPI - General Stated complaint: Petition Time Seen by Provider: 10/16/24 11:13 Source: patient, police, RN notes reviewed Mode of arrival: ambulatory Limitations: no limitations - History of Present Illness Initial comments: 34 old male presents emergency department with [facility] worker, police for psych evaluation. Patient went to rehab in July stopped taking his medication because around that time. He started taking Klonopin but after medication review with his prescriber they discontinued his meds because he was refusing to take his Clazuril. Patient currently is not on medications but was started on Zyprexa which is not helping he has been declining and not engaging in treatment. - Related Data Home Medications Medication Instructions Recorded Confirmed Omeprazole 40 mg PO AC-BRKFST@0700 11/14/23 10/16/24 hydrOXYzine pamoate [Vistaril] 50 mg PO QID PRN 11/14/23 10/16/24 Multivitamins, Thera [Multivitamin 1 tab PO DAILY@0800 10/16/24 10/16/24 (formulary)] OLANZapine ODT [ZyPREXA ZYDIS] 10 mg PO HS@2100 10/16/24 10/16/24 carBAMazepine [TEGretol] 200 mg PO BID@0800,2100 10/16/24 10/16/24 Allergies Allergy/AdvReac Type Severity Reaction Status Date / Time aripiprazole [From Abilify] Allergy Unknown Verified 10/16/24 11:53 divalproex sodium Allergy Vomiting Verified 10/16/24 11:53 [From Depakote] haloperidol [From Haldol] Allergy Unknown Verified 10/16/24 11:53 propoxyphene Allergy Unknown Verified 10/16/24 11:53 [From Darvocet-N] ziprasidone [From Geodon] Allergy Unknown Verified 10/16/24 11:53 fluphenazine enanthate AdvReac Severe Trismus Verified 10/16/24 11:53 [From Prolixin] fluphenazine HCl AdvReac Lockjaw Verified 10/16/24 11:53 [From Prolixin] paliperidone [From Invega] AdvReac panic Verified 10/16/24 11:53 attacks risperidone AdvReac Nausea & Verified 10/16/24 11:53 Vomiting Review of Systems ROS Statement: Those systems with pertinent positive or pertinent negative responses have been documented in the HPI. ROS Other: All systems not noted in ROS Statement are negative. Past Medical History Past Medical History: Seizure Disorder Additional Past Medical History / Comment(s): Schizophrenia, right arm fracture, degenerative disc to lower back, and right wrist plate and screws. Last seizure "months ago" History of Any Multi-Drug Resistant Organisms: None Reported Past Surgical History: Orthopedic Surgery Additional Past Surgical History / Comment(s): mouth surgery, reduction of right arm fracture. Past Anesthesia/Blood Transfusion Reactions: No Reported Reaction Past Psychological History: Anxiety, Panic Disorder, Schizophrenia Smoking Status: Former smoker, Never smoker Past Alcohol Use History: None Reported Past Drug Use History: None Reported - Past Family History Mother Brother(s) Family Medical History: Unable to Obtain General Exam Limitations: no limitations General appearance: alert, in no apparent distress Head exam: Present: atraumatic, normocephalic, normal inspection Eye exam: Present: normal appearance, PERRL, EOMI. Absent: scleral icterus, conjunctival injection, periorbital swelling ENT exam: Present: normal exam, normal oropharynx, mucous membranes moist Neck exam: Present: normal inspection, full ROM. Absent: tenderness, meningismus, lymphadenopathy Respiratory exam: Present: normal lung sounds bilaterally. Absent: respiratory distress, wheezes, rales, rhonchi, stridor Cardiovascular Exam: Present: regular rate, normal rhythm, normal heart sounds. Absent: systolic murmur, diastolic murmur, rubs, gallop, clicks Neurological exam: Present: alert, oriented X3 Psychiatric exam: Present: normal affect, normal mood Course Vital Signs 10/16/24 10/16/24 11:13 12:33 Temperature 98 F 97.8 F Pulse Rate 85 84 Respiratory 16 16 Rate Blood Pressure 149/102 137/99 O2 Sat by Pulse 99 98 Oximetry Medical Decision Making - Medical Decision Making Was pt. sent in by a medical professional or institution (, PA, PAINTING CONTRACTOR, urgent care, hospital, or custodial...) When possible be specific @ -No Did you speak to anyone other than the patient for history (EMS, parent, family, police, friend...)? What history was obtained from this source @ -Police, [facility] worker Did you review nursing and triage notes (agree or disagree)? Why? @ -I reviewed and agree with nursing and triage notes Were old charts reviewed (outside hosp., previous admission, EMS record, old EKG, old radiological studies, urgent care reports/EKG's, custodial records)? Report findings @ -No old charts were reviewed Differential Diagnosis (chest pain, altered mental status, abdominal pain women, abdominal pain men, vaginal bleeding, weakness, fever, dyspnea, syncope, headache, dizziness, GI bleed, back pain, seizure, CVA, palpatations, mental health, musculoskeletal)? @ -Differential Mental Health Depression, anxiety, bipolar, psychosis, schizophrenia, borderline personality, situational depression, adjustment disorder, behavioral disorder, brain tumor, malingering, substance abuse, encephalopathy, medication reaction, dementia, hypothyroidism, degenerative neurologic disorder, lupus.... This is not meant to be all-inclusive list EKG interpreted by me (3pts min.). @ -[None X-rays interpreted by me (1pt min.). @ -None done CT interpreted by me (1pt min.). @ -None done U/S interpreted by me (1pt. min.). @ -None done What testing was considered but not performed or refused? (CT, X-rays, U/S, labs)? Why? @ -None What meds were considered but not given or refused? Why? @ -None Did you discuss the management of the patient with other professionals (professionals i.e. , PA, PAINTING CONTRACTOR, lab, RT, psych nurse, geriatric social work professor, seal mixing operator, teacher, booking officer, pillowcase sewer)? Give summary @ -EPS, psychiatrist evaluated the patient recommends patient to be admitted Was smoking cessation discussed for >3mins.? @ -No Was critical care preformed (if so, how long)? @ -No Were there social determinants of health that impacted care today? How? (Homelessness, low income, unemployed, alcoholism, drug addiction, transportation, low edu. Level, literacy, decrease access to med. care, retirement, rehab)? @ -No Was there de-escalation of care discussed even if they declined (Discuss DNR or withdrawal of care, Hospice)? DNR status @ -No What co-morbidities impacted this encounter? (DM, HTN, Smoking, COPD, CAD, Cancer, CVA, ARF, Chemo, Hep., AIDS, mental health diagnosis, sleep apnea, morbid obesity)? @ -None Was patient admitted / discharged? Hospital course, mention meds given and route, prescriptions, significant lab abnormalities, going to OR and other pertinent info. @ -Admitted to [facility] for psychiatric treatment Undiagnosed new problem with uncertain prognosis? @ -No Drug Therapy requiring intensive monitoring for toxicity (Heparin, Nitro, Insulin, Cardizem)? @ -No Were any procedures done? @ -No Diagnosis/symptom? @ -Schizophrenia, psychosis Acute, or Chronic, or Acute on Chronic? @ -Acute Uncomplicated (without systemic symptoms) or Complicated (systemic symptoms)? @ -Uncomplicated Side effects of treatment? @ -No Exacerbation, Progression, or Severe Exacerbation? @ -No Poses a threat to life or bodily function? How? (Chest pain, USA, SD, pneumonia, PE, COPD, DKA, ARF, appy, cholecystitis, CVA, Diverticulitis, Homicidal, Suicidal, threat to staff... and all critical care pts) @ -No - Lab Data Lab Results 10/16/24 10/16/24 Range/Units 11:30 11:30 Urine Opiates Screen Not Detected (NotDetected) Ur Oxycodone Screen Not Detected (NotDetected) Urine Methadone Screen Not Detected (NotDetected) Ur Barbiturates Screen Not Detected (NotDetected) U Tricyclic Antidepress Not Detected (NotDetected) Ur Phencyclidine Scrn Not Detected (NotDetected) Ur Amphetamines Screen Not Detected (NotDetected) U Methamphetamines Scrn Not Detected (NotDetected) U Benzodiazepines Scrn Not Detected (NotDetected) Urine Cocaine Screen Not Detected (NotDetected) U Marijuana (THC) Screen Not Detected (NotDetected) SARS-CoV-2 (PCR) Not Detected (Not Detectd) Disposition Clinical Impression: Schizophrenia, Psychosis Disposition: TRANSFER TO PSYCH HOSP/UNIT Time of Disposition: 12:41
[2024-10-16 12:06] LABS: Amphetamine Screen,Urine Not Detected (NotDetected); Barbiturate Screen,Urine Not Detected (NotDetected); Benzodiazepines Screen,Urine Not Detected (NotDetected); Cocaine Screen,Urine Not Detected (NotDetected); Methadone Screen, Urine Not Detected (NotDetected); Opiate Screen,Urine Not Detected (NotDetected); Oxycodone Screen, Urine Not Detected (NotDetected); Phencyclidine Screen,Urine Not Detected (NotDetected); Tricyclic Antidepressant,Urine Not Detected (NotDetected); Urn Cannabinoid Scrn Not Detected (NotDetected)
[2024-10-16] MEDS ORDERED: MAG HYDROX/AL HYDROX/SIMETH 355 ML BOTTLE PO PRN (12:28)
[2024-10-16] MEDS ORDERED: MAGNESIUM HYDROXIDE 2,400 MG/30 ML CUP PO PRN (12:28)
[2024-10-16] MEDS ORDERED: IBUPROFEN 600 MG TAB PO PRN (12:28)
[2024-10-16] MEDS ORDERED: OLANZapine 10 MG VIAL IM PRN (12:31)
[2024-10-16] MEDS: NICOTINE 14MG/24HR PATCH TRANSDERM SCH (12:46)
[2024-10-16] MEDS: hydrOXYzine pamoate 25 MG CAP PO PRN (12:47)
[2024-10-16] MEDS: OLANZapine 10 MG TAB PO PRN (15:09)
[2024-10-16] MEDS: ACETAMINOPHEN TAB 325 MG TAB PO PRN (15:59)
[2024-10-16 17:35] LABS: Appearance,Urine Clear (Clear); Bilirubin,Urine Negative (Negative); Blood,Urine Negative (Negative); Color,Urine Colorless; Glucose,Urine (UA) Negative (Negative); Ketones,Urine 1+ (Negative); Leukocyte Esterase,Urine Negative (Negative); Nitrite,Urine Negative (Negative); Protein,Urine Negative (Negative); Specific Gravity,Urine 1.004 (1.001-1.035); Urobilinogen,Urine <2.0 mg/dL (<2.0)
[2024-10-16] MEDS: carBAMazepine 200 MG TAB PO SCH (20:08)
[2024-10-16] MEDS: OLANZapine ODT 10 MG TAB PO SCH (20:09)
[2024-10-16] MEDS: clonazePAM 0.5 MG TAB PO SCH (20:12)
[2024-10-17] MEDS: MULTIVITAMINS, THERA 1 EACH TAB PO SCH (08:11)
[2024-10-17 09:52] VITALS: RESP 16
[2024-10-17] MEDS ORDERED: OLANZapine 10 MG VIAL IM PRN (10:45)
--- NOTE | 2024-10-17 12:33 | P.HP ---
Psychiatric H&P - . H&P Date: 10/17/24 History & Physical: Allergies Allergy/AdvReac Type Severity Reaction Status Date / Time aripiprazole from Abilify Allergy Unknown Verified 10/16/24 11:53 divalproex sodium Allergy Vomiting Verified 10/16/24 11:53 From Depakote haloperidol from Haldol Allergy Unknown Verified 10/16/24 11:53 propoxyphene Allergy Unknown Verified 10/16/24 11:53 From Darvocet-N ziprasidone from Geodon Allergy Unknown Verified 10/16/24 11:53 fluphenazine enanthate AdvReac Severe Trismus Verified 10/16/24 11:53 From Prolixin fluphenazine HCl AdvReac Lockjaw Verified 10/16/24 11:53 From Prolixin paliperidone from Invega AdvReac panic Verified 10/16/24 11:53 attacks risperidone AdvReac Nausea & Verified 10/16/24 11:53 Vomiting Vital Signs Temp 97.3 F L 10/16/24 12:55 Pulse 142 H 10/17/24 08:15 Resp 16 10/17/24 08:15 BP 111/78 10/17/24 08:15 Pulse Ox 97 10/16/24 12:55 FiO2 Intake & Output 10/16/24 10/17/24 10/17/24 18:59 06:59 18:59 Weight 78.789 kg Laboratory Last Values Urine Color Colorless 10/16/24 11:30 Urine Appearance Clear (Clear) 10/16/24 11:30 Urine pH 7.0 (5.0-8.0) 10/16/24 11:30 Ur Specific Rosalie 1.004 (1.001-1.035) 10/16/24 11:30 Urine Protein Negative (Negative) 10/16/24 11:30 Urine Glucose (UA) Negative (Negative) 10/16/24 11:30 Urine Ketones 1+ (Negative) H 10/16/24 11:30 Urine Blood Negative (Negative) 10/16/24 11:30 Urine Nitrite Negative (Negative) 10/16/24 11:30 Urine Bilirubin Negative (Negative) 10/16/24 11:30 Urine Urobilinogen <2.0 mg/dL (<2.0) 10/16/24 11:30 Ur Leukocyte Esterase Negative (Negative) 10/16/24 11:30 Urine Opiates Screen Not Detected (NotDetected) 10/16/24 11:30 Ur Oxycodone Screen Not Detected (NotDetected) 10/16/24 11:30 Urine Methadone Screen Not Detected (NotDetected) 10/16/24 11:30 Ur Barbiturates Screen Not Detected (NotDetected) 10/16/24 11:30 U Tricyclic Antidepress Not Detected (NotDetected) 10/16/24 11:30 Ur Phencyclidine Scrn Not Detected (NotDetected) 10/16/24 11:30 Ur Amphetamines Screen Not Detected (NotDetected) 10/16/24 11:30 U Methamphetamines Scrn Not Detected (NotDetected) 10/16/24 11:30 U Benzodiazepines Scrn Not Detected (NotDetected) 10/16/24 11:30 Urine Cocaine Screen Not Detected (NotDetected) 10/16/24 11:30 U Marijuana (THC) Screen Not Detected (NotDetected) 10/16/24 11:30 SARS-CoV-2 (PCR) Not Detected (Not Detectd) 10/16/24 11:30 10/17/24 12:19 IDENTIFYING DATA: Patient is a 34-year-old male with a public guardian, currently residing at [facility] CHIEF COMPLAINT: Nonadherence with medications, increased aggression, delusions HPI: Patient presented to the hospital with mental health concerns. EPS note states, "Pt was brought in on a non complaince order. Which states that he has not been taking him medications. He is becoming more aggressive and delusional. He is not following through with [facility] appointments. Per the last prescriber note on 10/10/24 it was noted that pt has been spitting out his medications at the home. He is not caring for his basic needs. He is not chaging clothes and not bathing for weeks. Pt has been more withdrawn and paranoid. Pt is not longer on a long acting injection. Pt is distracted during assessment and constantly looking around the ER. Pt keeps repeating, "I need the 3rd floor". Pt was not very cooperative during assessment. Pt denies SI and HI. Pt does appear to be paranoid. Pt is dishelved and unkempt." Patient seen and evaluated on the unit, pacing and was agreeable to speak to automobile service writer temporarily. He states being here due to him needing to change his medications. He states living at [facility] however he is hopeful to change group homes or live in a hotel. He hopes to be here for at least 1 week to address these concerns. He denied most safety concerns, stating he only has a diagnosis of anxiety and PTSD. He expresses he only likes Zyprexa and that Clazuril made him "crazy". Patient notably has allergies to several antipsychotic medications including Risperdal which lists "nausea/vomiting". Was informed through [facility] liaison that patient's outpatient team was hopeful to transition patient to Risperdal uzedy and thus given this not being a true allergic reaction he will be started on Resporal with the plan to transition to uzedy. Was also informed that patient dislikes injections due to needles however given his history of nonadherence and current court order, he will have to be transition to a long-acting injectable. Patient denies any suicidal or homicidal ideations intent or plan. At this time patient denies any auditory or visual hallucinations. Patient denies any flight of ideas racing thoughts and increased in goal directed behavior. Patient admits to using no substances and UDS was negative. PAST PSYCHIATRIC HISTORY: Patient has a history of methamphetamine use disorder, cannabis use disorder, schizoaffective disorder, bipolar type. Patient most recently was started on Zyprexa Zydis 10 mg, Tegretol 200 mg twice daily, Vistaril 50 mg 3 times daily as needed. He was discontinued on Klonopin 0.5 mg as needed and maps shows medication was last filled 08/05/2024 with UDS also being negative for this substance. Patient has had over 30 inpatient hospitalizations, most recent being at this facility 01/2023 however [facility] note did state he was hospitalized in June 2023. Patient follows with [facility] and sees provider La Mariscal, french weaver Mike. Patient denies any history of suicide attempts in the past. PMH: as per ER note ALLERGIES: as per EMR SUBSTANCE USE HISTORY: Patient has a history of methamphetamine use FAMILY PSYCHIATRIC/SUBSTANCE USE HISTORY: Denies SOCIAL HISTORY: Patient has a public guardian and is single with no children. He is [facility] in a [facility]. MENTAL STATUS EXAM: General Appearance: Patient appears to be stated age is alert, directable, and attempts to cooperate. Patient appears to have poor hygiene and grooming. Behavior: Patient displays psychomotor restlessness, pacing the unit Speech: Patient's speech is fluent but brief. Mood/Affect: Patient reports their mood is "all right", affect is congruent and constricted. Suicidality/Homicidality: Patient denies having any homicidal ideation intent or plan. Denies any suicidal ideations intent or plan Perceptions: Patient denies any visual hallucinations and denies any auditory hallucinations Though content/process: There is no evidence of any delusional thought content and thought process is linear. Memory and concentration: AOX3, grossly intact for the purposes of this session. Can spell "WORLD" backwards Judgment and insight: Poor STRENGTHS/WEAKNESSES: strength is that patient is resilient and has a public guardian. Weakness is that patient has poor judgment, nonadherent with medications and is impulsive INTELLECT: Average IMPRESSIONS: Schizoaffective disorder, bipolar type Methamphetamine use disorder, in remission Nonadherence with treatment PLAN: -Patient is admitted under court order status that is that expires 05/15/2025 to [facility] for stabilization of psychiatric symptoms and safety. Patient has not signed adult voluntary form and medication consent and is placed in patient's chart. -Medications : Start Risperdal M-tab 2 mg at bedtime with as needed Zyprexa IM at bedtime per court order backup if patient refuses oral medications. Continue Tegretol 200 mg twice daily for mood stabilization. Will plan to transition to uzedy after titration of oral Risperdal to a more therapeutic dose. Discontinue Klonopin 0.5 mg twice daily as this has not been filled since 07/2024 -Hydroxyzine and Zyprexa PRN for agitation/aggression -Patient was counselled on substance abuse and desired to cut back on use -Patient was informed of the risks, benefits and side effects of the medication and patient verbally consented to taking the medications. Patient signed med consent form and was placed in chart. -Internal Medicine consult to perform medical evaluation and physical. -NRT -not needed as patient does not smoke -SW on board for discharge planning. Encourage patient to participate in groups to work on coping skills. Anticipate discharge back to [facility] early next week
[2024-10-17] MEDS: BUTALB/APAP/CAFF 50-325-40MG TAB PO PRN (12:34)
[2024-10-17] MEDS: risperiDONE ODT 2 MG TAB PO SCH (20:10)
[2024-10-17] MEDS ORDERED: OLANZapine ODT 10 MG TAB PO SCH (21:00)
--- NOTE | 2024-10-18 00:26 | CONS ---
CONSULTATION REASON FOR CONSULTATION: Advice regarding seizure and migraine, requested by Psychiatry. HISTORY OF PRESENT ILLNESS: This is a 34-year-old gentleman with a past medical history of schizophrenia, seizure disorder, is admitted for psychosis. No chest pain. No palpitations. No fever. The patient is complaining of some occasional migraine. PAST MEDICAL HISTORY: Reviewed include seizures, schizophrenia. Rest of the history and rest of the chart is also reviewed. HOME MEDICATIONS: Restoril. Dose and rest of medication reviewed. ALLERGIES: Multiple allergies, Abilify. Rest of allergies noted. FAMILY HISTORY: Unable to obtain. SOCIAL HISTORY: No history of smoking, or alcohol. REVIEW OF SYSTEMS: Fourteen-point review of systems is negative except as mentioned earlier. PHYSICAL EXAMINATION: VITAL SIGNS: Pulse is 105, blood pressure 115/82, respirations 18. HEENT: Conjunctivae normal. NECK: No JVD. CARDIOVASCULAR: S1, S2. RESPIRATIONS: Breath sounds diminished at the bases. ABDOMEN: Soft. NERVOUS SYSTEM: Nonfocal. LABORATORY DATA: Noted. ASSESSMENT: 1. Schizoaffective disorder, bipolar. 2. Possible psychosis. 3. History of migraine. 4. History of seizure disorder. 5. History of degenerative joint disease. RECOMMENDATIONS: This is a 34-year-old gentleman presented for psychiatric evaluation. At this time, I recommend to continue current medications. Agree with Zariaet. I would resume the home medications and we will be happy to review any abnormal labs, otherwise, the patient may be asked to follow up with primary physician in the outpatient setting. MMODL / IJN: [id number] /
[2024-10-18] MEDS: PANTOPRAZOLE 40 MG TABLET PO SCH (08:01)
--- NOTE | 2024-10-18 11:59 | P.PN ---
Progress Note - Text Progress Note Date: 10/18/24 Interval History: Patient was seen wandering the hallways and was not agreeable to speak with wr iter, requesting to be put back on his Klonopin. Discussed with patient that consumer loan underwriter talked to his underwater roboticist Segundo and that this was stopped back in July when he went to rehab for methamphetamine use. Patient continues to be fixated on being put back on benzodiazepines, asking can he have Ativan instead. Electromechanical Assembler suggested an alternative medication for this to help with anxiety and restlessness such as propranolol however patient terminated the interview, walking away due to being upset. He was not agreeable to talk afterwards. Patient did not receive Risperdal ODT last night and instead got Zyprexa 10 mg p.o. as needed per court order back up. Patient's outpatient provider La Mariscal spoke with our [facility] liaison who wishes patient to be put on uzedy given has history of nonadherence with psychotropic medications. During patient's last visit, he was not adherent with p.o. Invega however was still transitioned to Invega Sustenna prior to discharge. Will monitor patient over the weekend for any adverse effects. Patient's underwater roboticist Segundo also mention patient was off meds during rehab from August until September. Mental Status Exam: General Appearance: Patient appears to be stated age is alert, uncooperative. He is disheveled Behavior: There is evidence of psychomotor restlessness, patient seen pacing the unit Speech: Patient's speech is brief but nonpressured. Mood/Affect: Mood is irritable, affect is congruent and constricted. Suicidality/Homicidality: Patient denies having any suicidal or homicidal ideation intent or plan. Perceptions: Patient was not seen responding internally Though content/process: Thought content was fixated on being put back on Klonopin Memory and concentration: AOX3, grossly intact for the purposes of this session Judgment and insight: Poor Assessment Schizoaffective disorder, bipolar type Methamphetamine use disorder, in early remission Nonadherence with treatment Plan: -Patient continues to meet criteria for inpatient psychiatric admission for symptom stabilization and safety. Patient has not signed adult voluntary form and medication consent and was placed in patient's chart. Patient currently on a court order with an expiration date for 05/15/2025 -Medications: Continue Risperdal M-Tab 2 mg at bedtime with Zyprexa p.o./IM as needed at bedtime backup per court order if patient refuses, Tegretol 200 mg twice daily for mood stabilization. Will plan to transition to Risperdal uzedy 100 mg IM tomorrow given patient's history of nonadherence with oral meds -When necessary hydroxyzine and Zyprexa to for agitation/aggression. -Labs: Patient refused labs -SW on board for discharge planning. Encouraged the patient to participate in milieu. Anticipate discharge back home to long term early next week
--- NOTE | 2024-10-19 11:57 | P.PN ---
Progress Note - Text Progress Note Date: 10/19/24 Interval history: Patient was seen laying in bed today looking at the ceiling and was directable and agreeable to speak with group underwriter. He was fairly uncooperative today. Answered only minimal questions. Claims that he did not get the injection today, did not want to speak about it. Has been refusing medications. Claims that he slept fairly last night, has a fair appetite. States that he is just waiting for lunch. At this time patient denies any suicidal or homicidal ideations intent or plan. Denies any Auditory or visual hallucinations. Patient denies any side effects from the medications and has been compliant with meds. Has a fairly poor insight and judgment Mental status exam: General Appearance: [Patient appears to be stated age is alert, directable, and cooperative.] Has long disheveled hair Behavior: [No agitated behavior. Patient is calm and directable] uncooperative Speech: Patient's speech is fluent and nonpressured. Soft tone, concrete Mood/Affect: Mood is "the same", affect is congruent and constricted. Suicidality/Homicidality: Patient denies having any suicidal or homicidal ideation intent or plan. Perceptions: Patient denies any auditory or visual hallucinations. Though content/process: Fairly concrete, poverty of content Memory and concentration: AOX3, grossly intact for the purposes of this session Judgment and insight: Chronically poor/limited Assessment/Plan: Continue with current diagnosis. Patient continues to meet criteria for inpatient psychiatric admission for symptom stabilization and safety.[Patient will be maintained on current psychotropic medication regimen, patient will be receiving Uzedy SQ PANIAGUA today.] Monitor for medication compliance and for any psychotropic medication side effects. Will continue to monitor ongoing response to treatment. Encouraged participation in milieu.
[2024-10-19] MEDS: risperiDONE 100 MG/0.28 ML SYR (NO COST) SQ ONE (17:13)
--- NOTE | 2024-10-20 11:39 | P.PN ---
Progress Note - Text Progress Note Date: 10/20/24 Interval history: Patient was seen in his room today and was directable and agreeable to speak with designer writer. He was coming out of the bathroom. Appears to have a disheveled appearance. Claims that he did receive the injection yesterday tolerated it well. Claims that he was just getting ready to go to group. Continues to be fairly concrete. Answered only minimal questions. Dates that he slept last night well. At this time patient denies any suicidal or homicidal ideations intent or plan. Denies any Auditory or visual hallucinations. Patient denies any side effects from the medications and has been compliant with meds. Has a fairly poor insight and judgment Mental status exam: General Appearance: Patient appears to be stated age is alert, directable, and cooperative. Has long disheveled hair Behavior: No agitated behavior. Patient is calm and directable uncooperative, improving mildly Speech: Patient's speech is fluent and nonpressured. Soft tone, concrete Mood/Affect: Mood is "the same", affect is congruent and constricted. Suicidality/Homicidality: Patient denies having any suicidal or homicidal ideation intent or plan. Perceptions: Patient denies any auditory or visual hallucinations. Though content/process: Fairly concrete, poverty of content Memory and concentration: AOX3, grossly intact for the purposes of this session Judgment and insight: Chronically poor/limited Assessment/Plan: Continue with current diagnosis. Patient continues to meet criteria for inpatient psychiatric admission for symptom stabilization and safety. Patient will be maintained on current psychotropic medication regimen, patient will be received Uzedy 100 mg SQ PANIAGUA on 10/19. Monitor for medication compliance and for any psychotropic medication side effects. Will continue to monitor ongoing response to treatment. Encouraged participation in milieu.
[2024-10-21] MEDS: clonazePAM 0.5 MG TAB PO SCH (12:57)
[2024-10-21] MEDS ORDERED: chlorproMAZINE 25 MG/ML 2 ML AMP IM PRN (13:09)
--- NOTE | 2024-10-21 13:21 | P.PN ---
Progress Note - Text Progress Note Date: 10/21/24 Interval History: Patient was seen wandering the hallways and was directable and agreeable to sp laurel with music writer in the [place]. Patient denied any adverse effects of the shot over the weekend, expressing no concerns. He request to stay a little longer however would not divulge in any particular reason why he wishes to stay for "3 days". Patient notably was more calm with music writer, less irritable than previous encounters. He initially denied any adverse effects however once his [facility] team came he reported "suicidal ideations" due to the shot he received 2 days ago. Patient [facility] team reported patient did really well previously on Clozaril however once he was discharged from rehab this was discontinued in addition to Klonopin and once his outpatient doctor would not start Klonopin, he continued to refuse medications. Discussed with [facility] team how Clozaril would be ideal however given his issues with needles this does not seem appropriate at this time however given patient's fixation on Klonopin, this will be used as leverage. Discussed with patient the plan to restart his Klonopin only if he is agreeable with restarting Clozaril which includes weekly blood draws. Patient was initially agreeable however he ended up refusing the blood draw despite both music writer and other staff members attempts at educating him on the need for this given the potential for clozaril to cause agranulocytosis. Given his ongoing refusal for the lab draw, Clozaril does not seem appropriate at this time and patient instead will be started on Thorazine with IM backup per court order. Mental Status Exam: General Appearance: Patient appears to be stated age is alert, directable, and cooperative. Patient is disheveled with poor grooming and hygiene Behavior: Patient appears restless, pacing the unit Speech: Patient's speech is fluent and nonpressured. Mood/Affect: Mood is "okay", affect is congruent and constricted. Suicidality/Homicidality: Patient denies having any homicidal ideation intent or plan. He does report questionable suicidal ideations however only endorsed these once told he would be discharged daily Perceptions: Patient denies any visual hallucinations and denies any auditory hallucinations Though content/process: Patient is stated on being on benzodiazepines Memory and concentration: AOX3, grossly intact for the purposes of this session Judgment and insight: poor Assessment Schizoaffective disorder, bipolar type Methamphetamine use disorder, in early remission Nonadherence with treatment Plan: -Patient continues to meet criteria for inpatient psychiatric admission for symptom stabilization and safety. Patient has not signed adult voluntary form and medication consent and was placed in patient's chart. Currently on DIALLO with expiration date for 05/15/2025 -Medications: Risperdal uzedy 100 mg SQ given 10/19/24, next due on 11/16/24. Increase Tegretol to 400 mg twice daily for mood stabilization, start Thorazine 50 mg at bedtime for psychosis/mood stabilization with 50 mg IM as needed at bedtime back up per court order if patient refuses p.o. -When necessary hydroxyzine and Zyprexa for agitation/aggression. -Labs: Patient again refused labs today despite several encouragement -SW on board for discharge planning. Encouraged the patient to participate in [facility].
[2024-10-21] MEDS: chlorproMAZINE 25 MG TAB PO SCH (20:14)
[2024-10-21] MEDS: carBAMazepine 200 MG TAB PO SCH (20:14)
[2024-10-21] MEDS ORDERED: cloZAPine 25 MG TAB PO SCH (21:00)
[2024-10-21] MEDS: ACETAMINOPHEN TAB 325 MG TAB PO PRN (23:18)
[2024-10-22] MEDS: clonazePAM 0.5 MG TAB PO SCH (10:32)
[2024-10-22 12:28] LABS: Basophils # (A) 0.1 k/uL (0-0.2); Basophils % (A) 1 %; Eosinophils # (A) 0.1 k/uL (0-0.7); Eosinophils % (A) 3 %; HCT 41.5 % (39.0-53.0); HGB 13.5 gm/dL (13.0-17.5); Hypochromasia Slight; Lymphocytes # (A) 0.7 k/uL (1.0-4.8); Lymphocytes % (A) 18 %; MCH 30.3 pg (25.0-35.0); MCHC 32.6 g/dL (31.0-37.0); MCV 92.8 fL (80.0-100.0); Mean Platelet Volume 7.3; Monocytes # (A) 0.2 k/uL (0-1.0); Monocytes % (A) 6 %; Neutrophils # (A) 2.9 k/uL (1.3-7.7); Neutrophils % (A) 71 %; Platelet Count 179 k/uL (150-450); RBC 4.47 m/uL (4.30-5.90); RDW 13.7 % (11.5-15.5); WBC 4.1 k/uL (3.8-10.6)
--- NOTE | 2024-10-22 12:32 | P.PN ---
Progress Note - Text Progress Note Date: 10/22/24 Interval History: Patient was seen wandering the hallways and was directable and agreeable to steven barragan with proposal lead writer in the office. Patient states he wishes to get put back on Klonopin and that he is not agreeable with getting the blood draw that is required for Clazuril as long as he is able to also get Klonopin. He feels as though the Klonopin helps him and makes him feel more relaxed. He reports that shot making him feel "weird" but was unable to elaborate on the details, expressing intermittent suicidal ideations related to receiving the shot. Discussed with patient the potential to transition to a 2-month injection given his aversion to shots. Discussed with patient the plan to stop Thorazine and start Clozaril instead however patient states he wishes to continue on Thorazine and as needed Zyprexa however this was strongly advised against. At this time patient denies any homicidal ideations, intent or plan. Patient denies any auditory, visual hallucinations and denies any paranoia or delusions. Patient denies any side effects from the medications and has been compliant with meds, receiving no as needed backups. Mental Status Exam: General Appearance: Patient appears to be stated age is alert, directable, and cooperative. He is disheveled Behavior: Patient appeared less restless, less pacing on the unit Speech: Patient's speech is fluent and nonpressured. Mood/Affect: Mood is improving mildly, affect is congruent and constricted. Suicidality/Homicidality: Patient denies having any homicidal ideation intent or plan. Reports intermittent suicidal ideations Perceptions: Patient denies any visual hallucinations and denies any auditory hallucinations Though content/process: There is no evidence of any delusional thought content and thought process is linear. Still fixated on Klonopin Memory and concentration: AOX3, grossly intact for the purposes of this session Judgment and insight: Historically poor however improving mildly Assessment Schizoaffective disorder, bipolar type Methamphetamine use disorder, in early remission Nonadherence with treatment Plan: -Patient continues to meet criteria for inpatient psychiatric admission for symptom stabilization and safety. Patient has not signed adult voluntary form and medication consent and was placed in patient's chart. Patient on DIALLO with an expiration date for 05/15/2025 -Medications: Risperdal uzedy 100mg SQ given on 10/19/2024 next due on 11/16/2024. Continue Tegretol 400 mg twice daily for mood stabilization, discontinue Thorazine and start Clozaril 25 mg at bedtime for psychosis. Start Klonopin 0.5 mg twice daily for restlessness -When necessary Atarax and Zyprexa for agitation/aggression. -Labs: CBC with differential received today, will follow-up with [facility] -SW on board for discharge planning. Encouraged the patient to participate in milieu.
[2024-10-22] MEDS: cloZAPine 25 MG TAB PO SCH (20:04)
[2024-10-22] MEDS ORDERED: cloZAPine 25 MG TAB PO SCH (21:00)
[2024-10-23 08:12] VITALS: BP 115/89; PULSE 101; TEMP 97.7
--- NOTE | 2024-10-23 11:51 | P.PN ---
Progress Note - Text Progress Note Date: 10/23/24 Interval History: Patient was seen wandering the hallways and was directable and agreeable to sp luis fk with comic book writer in the office. Patient notably appears less restless, less pacing the halls and more cooperative with comic book writer. CBC with differential was WNL and patient appears to be tolerating the Clozaril well thus far with no adverse effects. Discussed with patient goals for the day including to shower and patient was seen later on getting towels so that he can shower. He claims that the shot prevents him from showering due to it making him feel "weird". He does report feeling better overall today and expresses 1 weird dream overnight. He requests Elavil to help with sleep however was agreeable with sterile instead. At this time patient denies any suicidal or homicidal ideations, intent or plan. Patient denies any auditory, visual hallucinations and denies any paranoia or delusions. Patient denies any side effects from the medications and has been compliant with meds. Mental Status Exam: General Appearance: Patient appears to be stated age is alert, directable, and cooperative. He has fair grooming and hygiene after showering Behavior: Patient is calmly standing without any agitated behavior. Speech: Patient's speech is fluent and nonpressured. Mood/Affect: Mood is improving mildly, affect is congruent and constricted. Suicidality/Homicidality: Patient denies having any suicidal or homicidal ideation intent or plan. Perceptions: Patient denies any visual hallucinations and denies any auditory hallucinations Though content/process: There is no evidence of any delusional thought content and thought process is linear, less fixated on Klonopin. Memory and concentration: AOX3, grossly intact for the purposes of this session Judgment and insight: Chronically poor however improving mildly Assessment Schizoaffective disorder, bipolar type Methamphetamine use disorder, in early remission Nonadherence with treatment Plan: -Patient continues to meet criteria for inpatient psychiatric admission for symptom stabilization and safety. Patient has not signed adult voluntary form and medication consent and was placed in patient's chart. Patient on an DIALLO, expiration date 05/15/2025 -Medications: Continue Clozaril 25 mg at bedtime for psychosis, Klonopin 0.5 mg twice daily for restlessness, Tegretol 400 mg twice daily for mood stabilization, Risperdal uzedy 100mg Sq last given on 10/19/24 and next due 11/16/24 -When necessary Atarax and Zyprexa for agitation/aggression. -Labs: CBC with differential WNL -SW on board for discharge planning. Encouraged the patient to participate in milieu. Anticipate discharge tomorrow back to intermediate
[2024-10-23] MEDS: hydrOXYzine pamoate 25 MG CAP PO SCH (20:14)
--- NOTE | 2024-10-24 14:49 | P.DS ---
Providers Date of admission: 10/16/24 12:26 Expected date of discharge: 10/24/24 Attending physician: Swati Velarde MD Consults: 10/16/24 12:28 Consult Physician [facility] Reason/Comments: H&P Do you want consulting provider notified?: Yes Primary care physician: Latonia King - Discharge Diagnosis(es) (1) Schizoaffective disorder, bipolar type Current Visit: Yes Status: Acute Priority: High (2) Nonadherence to medical treatment Current Visit: Yes Status: Acute Priority: High (3) Methamphetamine use disorder, moderate, in early remission Current Visit: Yes Status: Chronic Priority: Low Hospital Course: Admission HPI: Admission note was completed by senior copywriter "Patient presented to the hospital with mental health concerns. EPS note states, "Pt was brought in on a non complaince order. Which states that he has not been taking him medications. He is becoming more aggressive and delusional. He is not following through with [facility] appointments. Per the last prescriber note on 10/10/24 it was noted that pt has been spitting out his medications at the home. He is not caring for his basic needs. He is not chaging clothes and not bathing for weeks. Pt has been more withdrawn and paranoid. Pt is not longer on a long acting injection. Pt is distracted during assessment and constantly looking around the ER. Pt keeps repeating, "I need the 3rd floor". Pt was not very cooperative during assessment. Pt denies SI and HI. Pt does appear to be paranoid. Pt is dishelved and unkempt." Patient seen and evaluated on the unit, pacing and was agreeable to speak to senior copywriter temporarily. He states being here due to him needing to change his medications. He states living at [facility] however he is hopeful to change group homes or live in a hotel. He hopes to be here for at least 1 week to address these concerns. He denied most safety concerns, stating he only has a diagnosis of anxiety and PTSD. He expresses he only likes Zyprexa and that Clazuril made him "crazy". Patient notably has allergies to several anti psychotic medications including Risperdal which lists "nausea/vomiting". Was informed through [facility] liaison that patient's outpatient team was hopeful to transition patient to Risperdal uzedy and thus given this not being a true allergic reaction he will be started on Resporal with the plan to transition to uzedy. Was also informed that patient dislikes injections due to needles however given his history of nonadherence and current court order, he will have to be transition to a long-acting injectable. Patient denies any suicidal or homicidal ideations intent or plan. At this time patient denies any auditory or visual hallucinations. Patient denies any flight of ideas racing thoughts and increased in goal directed behavior. Patient admits to using no substances and UDS was negative." Hospital course: Upon admission to the unit patient was admitted on an DIALLO, expires on 05/15/2025.. Patient followed unit protocol, largely isolative and not attending groups or interacting with others. Patient was initially noncompliant with the medications over he was adherent towards the end of his stay. Patient was started on Risperdal and was transitioned to Risperdal uzedy 100 mg SQ, last gi suzanne on 10/19/2024 and next due on 11/16/2024. Tegretol was increased to 400 mg twice daily for mood stabilization, Klonopin started at 0.5 mg twice daily for restlessness, Clazuril started at 25 mg at bedtime for psychosis. Note most recent CBC with differential was WNL, next due on 10/29/2024. Patient displayed manipulative behaviors, was drug-seeking and reported questionable side effects but appeared to tolerate them well overall. Patient was also seen by medical team for history and physical exam. They started him on Fioricet as needed however this will not be continued on discharge. Throughout the course of the hospitalization patient gradually improved with regards to mood, anxiety, sleep and returned back to their baseline level of functioning. On the day of discharge patient denied any suicidal or homicidal ideations intent or plan denied any auditory or visual hallucinations. The patient denied any access to guns or weapons. Patient denied any paranoia and did not endorse any delusions. He does display poor insight and judgment. Patient does have a significant history of substance abuse and was counseled on abstaining from all substances including alcohol and marijuana. He recently went to rehab and has refrained from using stimulants. Patient was also counseled on the medications and need for regular compliance and was encouraged to follow-up with their outpatient appointment for mental health and also for primary care. Patient to be discharged back to [facility] with frequent [facility] follow-up. Mental status exam: General Appearance: Patient appears to be stated age is alert, pleasant, and cooperative. Patient is in no acute distress and has improved hygiene and grooming Behavior: Patient is calmly seated without any agitated behavior. Speech: Patient's speech is fluent and nonpressured. Mood/Affect: Patient reports their mood is "better", affect is congruent and constricted Suicidality/Homicidality: Patient denies having any suicidal or homicidal ideation intent or plan. Perceptions: Patient denies any auditory or visual hallucinations. Though content/process: There is no evidence of any delusional thought content and thought process is linear, illogical at times. Memory and concentration: AOX3, grossly intact for the purposes of this session. Can spell "WORLD" backwards correctly. Judgment and insight: Chronically poor, however has improved with guarded prognosis Impression: Schizoaffective disorder, bipolar type Methamphetamine use disorder, in early remission Nonadherence with medical treatment Plan: -Continue with discharge today as patient has improved and stabilized psychiatrically and is not currently an imminent threat to themself and/or others. Patient will remain at chronically elevated risk for harm to self an d/or others due to their impulsivity and substance abuse. -Continue medications: Clozaril 25 mg at bedtime, Klonopin 0.5 mg twice daily, Tegretol 400 mg twice daily, Risperdal uzedy 100 mg SQ, next due on 11/16/2024. Patient agreeable with weekly blood draws for the next 6 months as long as Klonopin is on board -Patient was counseled on the need for medication compliance and appropriate follow-up at mental health and also primary care for medical issues. Patient verbalized understanding and agreed. -Social work to help ensure safety upon discharge and answer any questions/concerns. also to ensure safe home environment that guns/weapons are either removed from the home or locked away. Social work also to arrange for patients follow up appointments with [facility] for psychiatric care along with follow up with primary care provider. -Patient counseled on abstaining from recreational drugs and marijuana and alcohol. Was informed/educated on the adverse effects on their physical and mental health. Patient verbally agreed and understood. -Patient was instructed to return to the hospital or seek immediate medical care if their psychiatric or medical symptoms do worsen or reoccur. Abnormal Labs 10/16/24 10/22/24 11:30 11:47 Lymphocytes # 0.7 L Urine Ketones 1+ H Allergies Allergy/AdvReac Type Severity Reaction Status Date / Time aripiprazole [From Abilify] Allergy Unknown Verified 10/16/24 11:53 divalproex sodium Allergy Vomiting Verified 10/16/24 11:53 [From Depakote] haloperidol [From Haldol] Allergy Unknown Verified 10/16/24 11:53 propoxyphene Allergy Unknown Verified 10/16/24 11:53 [From Darvocet-N] ziprasidone [From Geodon] Allergy Unknown Verified 10/16/24 11:53 fluphenazine enanthate AdvReac Severe Trismus Verified 10/16/24 11:53 [From Prolixin] fluphenazine HCl AdvReac Lockjaw Verified 10/16/24 11:53 [From Prolixin] paliperidone [From Invega] AdvReac panic Verified 10/16/24 11:53 attacks risperidone AdvReac Nausea & Verified 10/16/24 11:53 Vomiting Vital Signs Temp 97.7 F 10/23/24 08:11 Pulse 101 H 10/23/24 08:11 Resp 16 10/21/24 10:23 BP 115/89 10/23/24 08:11 Pulse Ox 94 L 10/23/24 08:11 FiO2 Intake & Output 10/23/24 10/24/24 10/24/24 18:59 06:59 18:59 Weight 80.603 kg Patient Condition at Discharge: Stable Plan - Discharge Summary Discharge Rx Participant: Yes New Discharge Prescriptions: New risperiDONE [Uzedy] 100 mg SQ QMONTHLY 30 Days #1 each cloZAPine [Clozaril] 25 mg PO HS 30 Days #30 tab carBAMazepine [TEGretol] 400 mg PO BID 30 Days #60 tab hydrOXYzine pamoate [Vistaril] 25 mg PO HS 30 Days #30 cap clonazePAM [KlonoPIN] 0.5 mg PO BID 7 Days #14 tab Continue Multivitamins, Thera [Multivitamin (formulary)] 1 tab PO DAILY@0800 30 Days #30 tab Omeprazole 40 mg PO AC-BRKFST@0700 30 Days #30 cap hydrOXYzine pamoate [Vistaril] 50 mg PO QID PRN 30 Days #60 cap PRN Reason: Mild Anxiety Discontinued OLANZapine ODT [ZyPREXA ZYDIS] 10 mg PO HS@2100 carBAMazepine [TEGretol] 200 mg PO BID@0800,2100 Discharge Medication List Multivitamins, Thera [Multivitamin (formulary)] 1 tab PO DAILY@0800 30 Days #30 tab 10/21/24 [Rx] Omeprazole 40 mg PO AC-BRKFST@0700 30 Days #30 cap 10/21/24 [Rx] hydrOXYzine pamoate [Vistaril] 50 mg PO QID PRN 30 Days #60 cap 10/21/24 [Rx] risperiDONE [Uzedy] 100 mg SQ QMONTHLY 30 Days #1 each 10/21/24 [Rx] carBAMazepine [TEGretol] 400 mg PO BID 30 Days #60 tab 10/24/24 [Rx] cloZAPine [Clozaril] 25 mg PO HS 30 Days #30 tab 10/24/24 [Rx] clonazePAM [KlonoPIN] 0.5 mg PO BID 7 Days #14 tab 10/24/24 [Rx] hydrOXYzine pamoate [Vistaril] 25 mg PO HS 30 Days #30 cap 10/24/24 [Rx] Follow up Appointment(s)/Referral(s): [facility] [Outside] - 10/31/24 12:00 pm (10-31-24 at 12:00 with [facility] will see him today at [place] (if he is approved to go back) ) Latonia King MD [Primary Care Provider] - 1-2 days Patient Instructions/Handouts: Schizoaffective Disorder (DC) Activity/Diet/Wound Care/Special Instructions: [facility] Discharge Info Avoid the use of street drugs and alcohol. Take all medications as prescribed. When you are in need of refills on your medications, please contact your outpatient medical provider and/or outpatient psychiatrist. Please go to your scheduled outpatient appointments for aftercare treatment. If symptoms return or become worse, call the crisis line at or and/or visit the nearest emergency room for assistance. National Suicide and Crisis Lifeline - call or text 988 Discharge Disposition: HOME SELF-CARE
== END 2024-10-24 16:36 | disposition home or self-care (01) | DRG 885 ==
LOC: EC 11:12 → 3MHU 12:26
PROVIDERS: ADMIT Psychiatry & Neurology Psychiatry; ATTEND Psychiatry & Neurology Psychiatry
DX: F25.0 Schizoaffective disorder, bipolar type (principal); R45.851 Suicidal ideations; F15.21 Other stimulant dependence, in remission; G40.909 Epilepsy, unspecified, not intractable, without status epilepticus; F41.9 Anxiety disorder, unspecified; F43.10 Post-traumatic stress disorder, unspecified; G43.909 Migraine, unspecified, not intractable, without status migrainosus; Z87.891 Personal history of nicotine dependence; Z91.128 Patient's intentional underdosing of medication regimen for other reason; Z91.148 Patient's other noncompliance with medication regimen for other reason
CPT/HCPCS: 80306; 81003; 82075; 85025; 87635; 99285

== ENCOUNTER 2024-11-20 16:24 | Emergency (ER) | payer MEDICARE ==
[2024-11-20 16:41] VITALS: RESP 18
--- NOTE | 2024-11-20 17:18 | ED ---
Psych HPI - General Chief Complaint: Psychiatric Symptoms Stated Complaint: petition Time Seen by Provider: 11/20/24 17:16 Source: patient, police, RN notes reviewed Mode of arrival: ambulatory - History of Present Illness Initial Comments: 34 year old male petitioned by court for mental health evaluation. Patient is refusing court ordered Uzedy injections. Patient reports he is allergic to Uzedy and it "makes him crazy". No medical complaints at this time besides some mild chronic back pain. He currently lives in a assisted. Denies suicidal or homicidal ideation. - Related Data Previous Rx's Medication Instructions Recorded Multivitamins, Thera [Multivitamin 1 tab PO DAILY@0800 30 Days #30 tab 10/21/24 (formulary)] Omeprazole 40 mg PO AC-BRKFST@0700 30 Days 10/21/24 #30 cap hydrOXYzine pamoate [Vistaril] 50 mg PO QID PRN 30 Days #60 cap 10/21/24 risperiDONE [Uzedy] 100 mg SQ QMONTHLY 30 Days #1 each 10/21/24 carBAMazepine [TEGretol] 400 mg PO BID 30 Days #60 tab 10/24/24 cloZAPine [Clozaril] 25 mg PO HS 30 Days #30 tab 10/24/24 clonazePAM [KlonoPIN] 0.5 mg PO BID 7 Days #14 tab 10/24/24 hydrOXYzine pamoate [Vistaril] 25 mg PO HS 30 Days #30 cap 10/24/24 Allergies Allergy/AdvReac Type Severity Reaction Status Date / Time aripiprazole [From Abilify] Allergy Unknown Verified 11/20/24 16:41 divalproex sodium Allergy Vomiting Verified 11/20/24 16:41 [From Depakote] haloperidol [From Haldol] Allergy Unknown Verified 11/20/24 16:41 propoxyphene Allergy Unknown Verified 11/20/24 16:41 [From Darvocet-N] ziprasidone [From Geodon] Allergy Unknown Verified 11/20/24 16:41 fluphenazine enanthate AdvReac Severe Trismus Verified 11/20/24 16:41 [From Prolixin] fluphenazine HCl AdvReac Lockjaw Verified 11/20/24 16:41 [From Prolixin] paliperidone [From Invega] AdvReac panic Verified 11/20/24 16:41 attacks risperidone AdvReac Nausea & Verified 11/20/24 16:41 Vomiting Review of Systems ROS Statement: Those systems with pertinent positive or pertinent negative responses have been documented in the HPI. ROS Other: All systems not noted in ROS Statement are negative. Past Medical History Past Medical History: Seizure Disorder Additional Past Medical History / Comment(s): Schizophrenia, right arm fracture, degenerative disc to lower back, and right wrist plate and screws. Last seizure "months ago" History of Any Multi-Drug Resistant Organisms: None Reported Past Surgical History: Orthopedic Surgery Additional Past Surgical History / Comment(s): mouth surgery, reduction of right arm fracture. Past Anesthesia/Blood Transfusion Reactions: No Reported Reaction Past Psychological History: Anxiety, Panic Disorder, Schizophrenia Smoking Status: Never smoker Past Alcohol Use History: None Reported - Past Family History Mother Brother(s) Family Medical History: Unable to Obtain General Exam Limitations: no limitations General appearance: alert, in no apparent distress Head exam: Present: atraumatic, normocephalic, normal inspection Eye exam: Present: normal appearance, PERRL, EOMI. Absent: scleral icterus, conjunctival injection, periorbital swelling Neurological exam: Present: alert, oriented X3 Psychiatric exam: Present: normal affect, normal mood Skin exam: Present: warm, dry, intact, normal color. Absent: rash Course Vital Signs 11/20/24 16:38 Temperature 97.7 F Pulse Rate 87 Respiratory 18 Rate Blood Pressure 138/84 O2 Sat by Pulse 99 Oximetry Medical Decision Making - Medical Decision Making Was pt. sent in by a medical professional or institution (, PA, HYDRATE THICKENER OPERATOR, urgent care, hospital, or fpc...) When possible be specific @ -No Did you speak to anyone other than the patient for history (EMS, parent, family, police, friend...)? What history was obtained from this source @ -No Did you review nursing and triage notes (agree or disagree)? Why? @ -I reviewed and agree with nursing and triage notes Were old charts reviewed (outside hosp., previous admission, EMS record, old EKG, old radiological studies, urgent care reports/EKG's, fpc records)? Report findings @ -No old charts were reviewed Differential Diagnosis (chest pain, altered mental status, abdominal pain women, abdominal pain men, vaginal bleeding, weakness, fever, dyspnea, syncope, headache, dizziness, GI bleed, back pain, seizure, CVA, palpatations, mental health, musculoskeletal)? @ -Differential Mental Health Depression, anxiety, bipolar, psychosis, schizophrenia, borderline personality, situational depression, adjustment disorder, behavioral disorder, brain tumor, malingering, substance abuse, encephalopathy, medication reaction, dementia, hypothyroidism, degenerative neurologic disorder, lupus.... This is not meant to be all-inclusive list EKG interpreted by me (3pts min.). @ -None X-rays interpreted by me (1pt min.). @ -None done CT interpreted by me (1pt min.). @ -None done U/S interpreted by me (1pt. min.). @ -None done What testing was considered but not performed or refused? (CT, X-rays, U/S, labs)? Why? @ -None What meds were considered but not given or refused? Why? @ -None Did you discuss the management of the patient with other professionals (professionals i.e. , PA, HYDRATE THICKENER OPERATOR, lab, RT, psych nurse, social work manager, theatrical performer, teacher, president and chief executive officer, case consultant)? Give summary @ -I spoke with Bita from [facility] who recommends states patient is now willing to receive Uzedy injection and recommends discharge after medication Was smoking cessation discussed for >3mins.? @ -No Was critical care preformed (if so, how long)? @ -No Were there social determinants of health that impacted care today? How? (Homelessness, low income, unemployed, alcoholism, drug addiction, transportation, low edu. Level, literacy, decrease access to med. care, [facility], rehab)? @ -No Was there de-escalation of care discussed even if they declined (Discuss DNR or withdrawal of care, Hospice)? DNR status @ -No What co-morbidities impacted this encounter? (DM, HTN, Smoking, COPD, CAD, Cancer, CVA, ARF, Chemo, Hep., AIDS, mental health diagnosis, sleep apnea, morbid obesity)? @ -None Was patient admitted / discharged? Hospital course, mention meds given and route, prescriptions, significant lab abnormalities, going to OR and other pertinent info. @ -Discharge. 34-year-old male sent for mental health evaluation after refusing court ordered Uzedy injection. Denies suicidal or homicidal ideation. No medical complaints at this time. I spoke with Bita from [facility] who states patient is now willing to receive the injection and recommends discharge after medication. I agree with this plan. Case was discussed with the ED attending Dr. Ospina. Undiagnosed new problem with uncertain prognosis? @ -No Drug Therapy requiring intensive monitoring for toxicity (Heparin, Nitro, Insulin, Cardizem)? @ -No Were any procedures done? @ -No Diagnosis/symptom? @ -Mental health issue Acute, or Chronic, or Acute on Chronic? @ -Acute Uncomplicated (without systemic symptoms) or Complicated (systemic symptoms)? @ -Uncomplicated Side effects of treatment? @ -No Exacerbation, Progression, or Severe Exacerbation? @ -No Poses a threat to life or bodily function? How? (Chest pain, [place], [place], pneumonia, PE, COPD, DKA, ARF, appy, cholecystitis, CVA, Diverticulitis, Homicidal, Suicidal, threat to staff... and all critical care pts) @ -No Disposition Clinical Impression: Mental health problem Disposition: HOME SELF-CARE Condition: Stable Additional Instructions: Please return to the Emergency Department if symptoms worsen or any other concerns. Is patient prescribed a controlled substance at d/c from ED?: No Referrals: Latonia King MD [Primary Care Provider] - 1-2 days Time of Disposition: 18:50
[2024-11-20] MEDS: ACETAMINOPHEN TAB 500 MG TAB PO STA (17:34)
[2024-11-20] MEDS: risperiDONE 125 MG/0.35 ML SYR (NO COST) SQ ONE (18:41)
[2024-11-20] MEDS: LORazepam 1 MG TAB PO STA (18:41)
[2024-11-20 19:00] VITALS: BP 126/80; PULSE 90; TEMP 98
== END 2024-11-20 19:10 | disposition home or self-care (01) ==
LOC: EC 16:24
DX: Z00.8 Encounter for other general examination (principal); Z88.5 Allergy status to narcotic agent; Z88.8 Allergy status to other drugs, medicaments and biological substances
CPT/HCPCS: 82075; 99284; 96372; J2799

== ENCOUNTER → 2024-12-03 | Outpatient (CLI) | payer MEDICARE ==
[2024-12-03 15:00] LABS: Basophils # (A) 0.03 X 10*3/uL (0.00-0.10); Basophils % (A) 0.9 %; Eosinophils # (A) 0.07 X 10*3/uL (0.04-0.35); HCT 38.9 % (39.6-50.0); HGB 13.3 g/dL (13.0-17.0); Immature Grans, Automated 0 %; Lymphocytes # (A) 0.85 X 10*3/uL (0.90-5.00); Lymphocytes % (A) 24.9 %; MCH 29.6 pg (27.0-32.0); MCHC 34.2 g/dL (32.0-37.0); MCV 86.4 FL (80.0-97.0); Mean Platelet Volume 8.8 FL (9.5-12.2); Monocytes # (A) 0.27 X 10*3/uL (0.20-1.00); Monocytes % (A) 7.9 %; NRBC Per 100 WBC 0 X 10*3/uL (0.00-0.01); Neutrophils % (A) 64.3 %; Platelet Count 219 X 10*3/uL (140-440); RDW 13.1 % (11.5-14.5); WBC 3.42 X 10*3/uL (4.50-10.00)
[2024-12-04 06:23] LABS: Clozapine (Clozaril) <25 ng/mL (200-700); Norclozapine 34 ng/mL (200-700)
== END | disposition home or self-care (01) ==
LOC: LABWHC1 10:30
DX: F20.9 Schizophrenia, unspecified (principal); Z79.899 Other long term (current) drug therapy
CPT/HCPCS: 36415; 80159; 85025

== ENCOUNTER 2024-12-15 10:51 | Emergency (ER) | payer MEDICARE ==
--- NOTE | 2024-12-15 11:21 | ED ---
General Adult HPI - General Chief complaint: Recheck/Abnormal Lab/Rx Stated complaint: Medication issue Time Seen by Provider: 12/15/24 11:02 Source: patient, RN notes reviewed Mode of arrival: ambulatory Limitations: no limitations - History of Present Illness Initial comments: Patient is a 34-year-old male present to the emergency department with concern for headache. Patient has chronic headaches and states he is supposed to be on Fioricet however does not have 1. Patient requests a Fioricet. Patient states he would like to also get off of Risperdal. Patient also states his Tegretol level was decreased by his doctor. No recent seizure. - Related Data Previous Rx's Medication Instructions Recorded Multivitamins, Thera [Multivitamin 1 tab PO DAILY@0800 30 Days #30 tab 10/21/24 (formulary)] Omeprazole 40 mg PO AC-BRKFST@0700 30 Days 10/21/24 #30 cap hydrOXYzine pamoate [Vistaril] 50 mg PO QID PRN 30 Days #60 cap 10/21/24 risperiDONE [Uzedy] 100 mg SQ QMONTHLY 30 Days #1 each 10/21/24 carBAMazepine [TEGretol] 400 mg PO BID 30 Days #60 tab 10/24/24 cloZAPine [Clozaril] 25 mg PO HS 30 Days #30 tab 10/24/24 clonazePAM [KlonoPIN] 0.5 mg PO BID 7 Days #14 tab 10/24/24 hydrOXYzine pamoate [Vistaril] 25 mg PO HS 30 Days #30 cap 10/24/24 Allergies Allergy/AdvReac Type Severity Reaction Status Date / Time aripiprazole [From Abilify] Allergy Unknown Verified 12/15/24 10:58 divalproex sodium Allergy Vomiting Verified 12/15/24 10:58 [From Depakote] haloperidol [From Haldol] Allergy Unknown Verified 12/15/24 10:58 propoxyphene Allergy Unknown Verified 12/15/24 10:58 [From Darvocet-N] ziprasidone [From Geodon] Allergy Unknown Verified 12/15/24 10:58 fluphenazine enanthate AdvReac Severe Trismus Verified 12/15/24 10:58 [From Prolixin] fluphenazine HCl AdvReac Lock[place]aw Verified 12/15/24 10:58 [From Prolixin] paliperidone [From Invega] AdvReac panic Verified 12/15/24 10:58 attacks risperidone AdvReac Nausea & Verified 12/15/24 10:58 Vomiting Review of Systems ROS Statement: Those systems with pertinent positive or pertinent negative responses have been documented in the HPI. ROS Other: All systems not noted in ROS Statement are negative. Constitutional: Denies: fever Eyes: Denies: eye pain Cardiovascular: Denies: chest pain Neurological: Reports: headache (Chronic). Denies: weakness, confusion Psychiatric: Denies: suicidal thoughts Past Medical History Past Medical History: Seizure Disorder Additional Past Medical History / Comment(s): Schizophrenia, right arm fracture, degenerative disc to lower back, and right wrist plate and screws. Last seizure "months ago" History of Any Multi-Drug Resistant Organisms: None Reported Past Surgical History: Orthopedic Surgery Additional Past Surgical History / Comment(s): mouth surgery, reduction of right arm fracture. Past Anesthesia/Blood Transfusion Reactions: No Reported Reaction Past Psychological History: Anxiety, Panic Disorder, Schizophrenia Smoking Status: Never smoker Past Alcohol Use History: None Reported - Past Family History Mother Brother(s) Family Medical History: Unable to Obtain General Exam Limitations: no limitations General appearance: alert, in no apparent distress Head exam: Present: atraumatic Eye exam: Present: normal appearance, PERRL, EOMI Neck exam: Present: normal inspection. Absent: tenderness, meningismus Respiratory exam: Present: normal lung sounds bilaterally Cardiovascular Exam: Present: regular rate, normal rhythm GI/Abdominal exam: Present: soft. Absent: tenderness Extremities exam: Present: normal inspection. Absent: pedal edema, calf tenderness Neurological exam: Present: alert, oriented X3, CN II-XII intact. Absent: motor sensory deficit Expanded Neurological exam: Present: protecting the airway Speech: Present: fluid speech Cranial nerves: EOM's Intact: Normal Sensory exam: Upper Extremity Light Touch: Normal, Lower Extremity Light Touch: Normal Motor strength exam: RUE: 5, LUE: 5, RLE: 5, LLE: 5 Eye Response: (4) open spontaneously Motor Response: (6) obeys commands Verbal Response: (5) oriented Psychiatric exam: Present: flat affect Skin exam: Present: normal color Course Vital Signs 12/15/24 10:54 Temperature 97.6 F Pulse Rate 91 Respiratory 18 Rate Blood Pressure 137/93 O2 Sat by Pulse 97 Oximetry Medical Decision Making - Medical Decision Making Was pt. sent in by a medical professional or institution (, [facility], SEMICONDUCTOR PACKAGES TESTER, urgent care, hospital, or fpc...) When possible be specific @ -No Did you speak to anyone other than the patient for history (EMS, parent, family, police, friend...)? What history was obtained from this source @ -No Did you review nursing and triage notes (agree or disagree)? Why? @ -I reviewed and agree with nursing and triage notes Were old charts reviewed (outside hosp., previous admission, EMS record, old EKG, old radiological studies, urgent care reports/EKG's, fpc records)? Report findings @ -No old charts were reviewed Differential Diagnosis (chest pain, altered mental status, abdominal pain women, abdominal pain men, vaginal bleeding, weakness, fever, dyspnea, syncope, headache, dizziness, GI bleed, back pain, seizure, CVA, palpatations, mental health, musculoskeletal)? @ -Differential Headache: Migraine, tension, cluster, carbon monoxide, central venous thrombosis, pension karma temporal arteritis, acute closure glaucoma, intercranial hemorrhage, mastoiditis, sinusitis, head injury, this is not meant to be an all-inclusive list. EKG interpreted by me (3pts min.). @ -As above X-rays interpreted by me (1pt min.). @ -None done CT interpreted by me (1pt min.). @ -None done U/S interpreted by me (1pt. min.). @ -None done What testing was considered but not performed or refused? (CT, X-rays, U/S, labs)? Why? @ -Considered further evaluation including imaging and blood work however patient states symptoms are chronic What meds were considered but not given or refused? Why? @ -None Did you discuss the management of the patient with other professionals (professionals i.e. [employer] Cantrell, SEMICONDUCTOR PACKAGES TESTER, lab, RT, psych nurse, director of social media marketing, cigar patcher, t eacher, airfield engineer officer, catalytic case operator)? Give summary @ -No Was smoking cessation discussed for >3mins.? @ -No Was critical care preformed (if so, how long)? @ -No Were there social determinants of health that impacted care today? How? (Homelessness, low income, unemployed, alcoholism, drug addiction, transportation, low edu. Level, literacy, decrease access to med. care, long term, rehab)? @ -No Was there de-escalation of care discussed even if they declined (Discuss DNR or withdrawal of care, Hospice)? DNR status @ -No What co-morbidities impacted this encounter? (DM, HTN, Smoking, COPD, CAD, Cancer, CVA, ARF, Chemo, Hep., AIDS, mental health diagnosis, sleep apnea, morbid obesity)? @ -None Was patient admitted / discharged? Hospital course, mention meds given and route, prescriptions, significant lab abnormalities, going to OR and other pertinent info. @ -Patient presents with request for Fioricet. Patient will be provided 1. Patient also has some concerns with his chronic medications. Patient is advised to follow-up with this regarding his neurologist and psychiatrist. Patient refuses Tegretol level and would like to be discharged. Patient is stable for discharge. Undiagnosed new problem with uncertain prognosis? @ -No Drug Therapy requiring intensive monitoring for toxicity (Heparin, Nitro, Insulin, Cardizem)? @ -No Were any procedures done? @ -No Diagnosis/symptom? @ -Cephalgia Acute, or Chronic, or Acute on Chronic? @ -Acute on chronic Uncomplicated (without systemic symptoms) or Complicated (systemic symptoms)? @ -Default Side effects of treatment? @ -No Exacerbation, Progression, or Severe Exacerbation? @ -No Poses a threat to life or bodily function? How? (Chest pain, [place], [place], pneumonia, PE, COPD, DKA, ARF, appy, cholecystitis, CVA, Diverticulitis, Homicidal, Suicidal, threat to staff... and all critical care pts) @ -No Disposition Clinical Impression: Headache Disposition: HOME SELF-CARE Condition: Stable Instructions (If sedation given, give patient instructions): Acute Headache (ED) Additional Instructions: Please do follow-up with your primary care physician, neurologist, and psychiatrist beginning of the week. Return for seizures, thoughts of harming yourself or others, worsening symptoms or any other concerns. Is patient prescribed a controlled substance at d/c from ED?: No Referrals: Latonia King MD [Primary Care Provider] - 1-2 days Time of Disposition: 11:21
[2024-12-15] MEDS: BUTALB/APAP/CAFF 50-325-40MG TAB PO STA (12:06)
[2024-12-15 12:10] VITALS: PULSE 94; RESP 15; TEMP 98.2
[2024-12-15 12:27] VITALS: BP 116/65
== END 2024-12-15 12:28 | disposition home or self-care (01) ==
LOC: EC 10:51
DX: R51.9 Headache, unspecified (principal); Z88.8 Allergy status to other drugs, medicaments and biological substances
CPT/HCPCS: 99283

== ENCOUNTER 2024-12-16 15:05 | Emergency (ER) | payer MEDICARE ==
[2024-12-16 15:35] VITALS: TEMP 97.4
[2024-12-16 16:28] LABS: Appearance,Urine Clear (Clear); Bilirubin,Urine Negative (Negative); Blood,Urine Negative (Negative); Color,Urine Colorless; Glucose,Urine (UA) Negative (Negative); Ketones,Urine Negative (Negative); Leukocyte Esterase,Urine Negative (Negative); Nitrite,Urine Negative (Negative); Protein,Urine Negative (Negative); Specific Gravity,Urine 1.004 (1.001-1.035); Urobilinogen,Urine <2.0 mg/dL (<2.0)
[2024-12-16 16:35] LABS: Amphetamine Screen,Urine Not Detected (NotDetected); Barbiturate Screen,Urine Detected (NotDetected); Benzodiazepines Screen,Urine Not Detected (NotDetected); Cocaine Screen,Urine Not Detected (NotDetected); Methadone Screen, Urine Not Detected (NotDetected); Opiate Screen,Urine Not Detected (NotDetected); Oxycodone Screen, Urine Not Detected (NotDetected); Phencyclidine Screen,Urine Not Detected (NotDetected); Tricyclic Antidepressant,Urine Not Detected (NotDetected); Urn Cannabinoid Scrn Detected (NotDetected)
[2024-12-16] MEDS: ACETAMINOPHEN TAB 325 MG TAB PO STA (19:00)
[2024-12-16] MEDS: BUTALB/APAP/CAFF 50-325-40MG TAB PO STA (19:01)
[2024-12-16 20:05] VITALS: BP 115/73; PULSE 80; RESP 16
--- NOTE | 2024-12-16 20:26 | ED ---
General Adult HPI - General Source: patient, RN notes reviewed, old records reviewed Mode of arrival: ambulatory Limitations: no limitations <Cash Butler - Last Filed: 12/16/24 20:22> <Hesham Winter - Last Filed: 12/17/24 00:35> - General Chief complaint: Psychiatric Symptoms Stated complaint: Suicidal Time Seen by Provider: 12/16/24 18:25 - History of Present Illness Initial comments: Patient is a 34-year-old male who presents emergency department seeking psychiatric evaluation. Has a history of psychiatric illness. States he has been compliant with medications but when he receives his risperidone injection which he had last month, it makes him feel bad. States he has been feeling suicidal. Denies any acute plan to myself. Denies homicidal ideations, times complaints. Denies hallucinations. Endorses chronic migraine-like headache which is baseline for him as well as chronic lower back pain and is asking for dose of his normal Fioricet. Denies any chest pain. Denies any shortness of breath or fevers. Has no other acute complaints. Patient presents for psychiatric evaluation. (Cash Butler) - Related Data Home Medications Medication Instructions Recorded Confirmed Omeprazole 40 mg PO DAILY@0700 12/16/24 12/16/24 carBAMazepine [TEGretol] 400 mg PO BID@0800,209912/16/24 12/16/24 cloZAPine [cloZAPine ODT] 200 mg PO HS@209912/16/24 12/16/24 clonazePAM [KlonoPIN] 0.5 mg PO BID@0800,2100 12/16/24 12/16/24 hydrOXYzine pamoate [Vistaril] 25 mg PO HS@209912/16/24 12/16/24 risperiDONE [Uzedy] 125 mg SQ Q28D 12/16/24 12/16/24 Previous Rx's Medication Instructions Recorded hydrOXYzine pamoate [Vistaril] 50 mg PO QID PRN 30 Days #60 cap 10/21/24 Allergies Allergy/AdvReac Type Severity Reaction Status Date / Time aripiprazole [From Abilify] Allergy Unknown Verified 12/16/24 20:48 divalproex sodium Allergy Vomiting Verified 12/16/24 20:48 [From Depakote] haloperidol [From Haldol] Allergy Unknown Verified 12/16/24 20:48 propoxyphene Allergy Unknown Verified 12/16/24 20:48 [From Darvocet-N] ziprasidone [From Geodon] Allergy Unknown Verified 12/16/24 20:48 fluphenazine enanthate AdvReac Severe Trismus Verified 12/16/24 20:48 [From Prolixin] fluphenazine HCl AdvReac Lockjaw Verified 12/16/24 20:48 [From Prolixin] paliperidone [From Invega] AdvReac panic Verified 12/16/24 20:48 attacks risperidone AdvReac Nausea & Verified 12/16/24 20:48 Vomiting Review of Systems ROS Other: All systems not noted in ROS Statement are negative. <Cash Butler - Last Filed: 12/16/24 20:22> ROS Other: All systems not noted in ROS Statement are negative. <Hesham Winter - Last Filed: 12/17/24 00:35> ROS Statement: Those systems with pertinent positive or pertinent negative responses have been documented in the HPI. Review of Systems: CONST: Denies fever EYES: Denies blurry vision ENT: Denies nasal congestion C/V: Denies Chest pain RESP: Denies shortness of breath GI: Denies abdominal pain : Denies dysuria SKIN: Denies rash. MSK: Denies joint pain. NEURO: Endorses mild headache (Cash Butler) Past Medical History Past Medical History: Seizure Disorder Additional Past Medical History / Comment(s): Schizophrenia, right arm fracture, degenerative disc to lower back, and right wrist plate and screws. Last seizure "months ago" History of Any Multi-Drug Resistant Organisms: None Reported Past Surgical History: Orthopedic Surgery Additional Past Surgical History / Comment(s): mouth surgery, reduction of right arm fracture. Past Anesthesia/Blood Transfusion Reactions: No Reported Reaction Past Psychological History: Anxiety, Panic Disorder, Schizophrenia Smoking Status: Never smoker Past Alcohol Use History: None Reported Past Drug Use History: None Reported - Past Family History Mother Brother(s) Family Medical History: Unable to Obtain <Cash Butler - Last Filed: 12/16/24 20:22> General Exam Limitations: no limitations <Cash Butler - Last Filed: 12/16/24 20:22> General appearance: alert, in no apparent distress Head exam: Present: atraumatic, normocephalic, normal inspection Eye exam: Present: normal appearance, PERRL, EOMI. Absent: scleral icterus, conjunctival injection, periorbital swelling ENT exam: Present: normal exam, mucous membranes moist Neck exam: Present: normal inspection. Absent: tenderness, meningismus, lymphadenopathy Respiratory exam: Present: normal lung sounds bilaterally. Absent: respiratory distress, wheezes, rales, rhonchi, stridor Cardiovascular Exam: Present: regular rate, normal rhythm, normal heart sounds. Absent: systolic murmur, diastolic murmur, rubs, gallop, clicks GI/Abdominal exam: Present: soft, normal bowel sounds. Absent: distended, tenderness, guarding, rebound, rigid Extremities exam: Present: normal inspection, full ROM, normal capillary refill. Absent: tenderness, pedal edema, joint swelling, calf tenderness Back exam: Present: normal inspection Neurological exam: Present: alert, oriented X3, CN II-XII intact Psychiatric exam: Present: normal affect, normal mood Skin exam: Present: warm, dry, intact, normal color. Absent: rash <Hesham Winter - Last Filed: 12/17/24 00:35> - General Exam Comments Initial Comments: General: Appears in no acute distress. HEAD: Normal with no signs of head trauma. EYES: EOMI ENT: Hearing grossly intact RESPIRATORY: Clear breath sounds bilaterally. No wheezes, rales, or rhonchi. C/V: Regular rate and rhythm. S1 and S2 auscultated, peripheral pulses 2+ and intact throughout ABD: Abd is soft, nontender, nondistended EXT: Normal range of motion, no obvious deformity SKIN: No rashes or lesions observed on exposed skin. NEURO: Alert and oriented x 4. No focal deficits (Cash Butler) Course <Hesham Winter - Last Filed: 12/17/24 00:35> Vital Signs 12/16/24 12/16/24 12/16/24 15:32 20:04 21:55 Temperature 97.4 F L Pulse Rate 121 H 80 Respiratory 20 16 16 Rate Blood Pressure 117/78 115/73 O2 Sat by Pulse 96 95 Oximetry - Reevaluation(s) Reevaluation #1: 12/17/24 Medically cleared for psychiatric evaluation (Hesham Winter) Medical Decision Making <Cash Butler - Last Filed: 12/16/24 20:22> <Hesham Winter - Last Filed: 12/17/24 00:35> - Medical Decision Making Was pt. sent in by a medical professional or institution (, PA, TOP LIFT AND AUTOMATIC WINDOW REPAIRER, urgent care, hospital, or custodial...) When possible be specific @ -No Did you speak to anyone other than the patient for history (EMS, parent, family, police, friend...)? What history was obtained from this source @ -No Did you review nursing and triage notes (agree or disagree)? Why? @ -I reviewed and agree with nursing and triage notes Were old charts reviewed (outside hosp., previous admission, EMS record, old EKG, old radiological studies, urgent care reports/EKG's, custodial records)? Report findings @ -No old charts were reviewed Differential Diagnosis (chest pain, altered mental status, abdominal pain women, abdominal pain men, vaginal bleeding, weakness, fever, dyspnea, syncope, headache, dizziness, GI bleed, back pain, seizure, CVA, palpatations, mental health, musculoskeletal)? @ -Differential Mental Health Depression, anxiety, bipolar, psychosis, schizophrenia, borderline personality, situational depression, adjustment disorder, behavioral disorder, brain tumor, malingering, substance abuse, encephalopathy, medication reaction, dementia, hypothyroidism, degenerative neurologic disorder, lupus.... This is not meant to be all-inclusive list EKG interpreted by me (3pts min.). @ -None done X-rays interpreted by me (1pt min.). @ -None done CT interpreted by me (1pt min.). @ -None done U/S interpreted by me (1pt. min.). @ -None done What testing was considered but not performed or refused? (CT, X-rays, U/S, labs)? Why? @ -None What meds were considered but not given or refused? Why? @ -None Did you discuss the management of the patient with other professionals (professionals i.e. , CUATE, TOP LIFT AND AUTOMATIC WINDOW REPAIRER, lab, RT, psych nurse, long term care social worker, outpatient interviewing clerk, teacher, upscale security officer, correctional counselor/case manager)? Give summary @ -No Was smoking cessation discussed for >3mins.? @ -No Was critical care preformed (if so, how long)? @ -No Were there social determinants of health that impacted care today? How? (Homelessness, low income, unemployed, alcoholism, drug addiction, transportation, low edu. Level, literacy, decrease access to med. care, assisted, rehab)? @ -No Was there de-escalation of care discussed even if they declined (Discuss DNR or withdrawal of care, Hospice)? DNR status @ -No What co-morbidities impacted this encounter? (DM, HTN, Smoking, COPD, CAD, Cancer, CVA, ARF, Chemo, Hep., AIDS, mental health diagnosis, sleep apnea, morbid obesity)? @ -Psychiatric illness Was patient admitted / discharged? Hospital course, mention meds given and route, prescriptions, significant lab abnormalities, going to OR and other pertinent info. @ -Please note the patient's presentation physical exam, presents emergency department for psychiatric evaluation. Is also complaining of a chronic migraine headache for him. Also endorses some right-sided back pain. Patient is given Fioricet, as well as Tylenol. Vital signs are within acceptable limits. BAT is 0. At this time, patient is medically cleared for evaluation by psychiatry. Disposition pending psychiatric evaluation. EPS notified of the consult. Suicide precautions ordered. Sitter ordered. Undiagnosed new problem with uncertain prognosis? @ -No Drug Therapy requiring intensive monitoring for toxicity (Heparin, Nitro, Insulin, Cardizem)? @ -No Were any procedures done? @ -No (Cash Butler) 34 male seen by psychiatry stable for discharge home (Hesham Winter) - Lab Data Lab Results 12/16/24 Range/Units 16:07 Urine Color Colorless Urine Appearance Clear (Clear) Urine pH 7.0 (5.0-8.0) Ur Specific [place] 1.004 (1.001-1.035) Urine Protein Negative (Negative) Urine Glucose (UA) Negative (Negative) Urine Ketones Negative (Negative) Urine Blood Negative (Negative) Urine Nitrite Negative (Negative) Urine Bilirubin Negative (Negative) Urine Urobilinogen <2.0 (<2.0) mg/dL Ur Leukocyte Esterase Negative (Negative) Urine Opiates Screen Not Detected (NotDetected) Ur Oxycodone Screen Not Detected (NotDetected) Urine Methadone Screen Not Detected (NotDetected) Ur Barbiturates Screen Detected H (NotDetected) U Tricyclic Antidepress Not Detected (NotDetected) Ur Phencyclidine Scrn Not Detected (NotDetected) Ur Amphetamines Screen Not Detected (NotDetected) U Methamphetamines Scrn Not Detected (NotDetected) U Benzodiazepines Scrn Not Detected (NotDetected) Urine Cocaine Screen Not Detected (NotDetected) U Marijuana (THC) Screen Detected H (NotDetected) Disposition <Cash Butler - Last Filed: 12/16/24 20:22> Is patient prescribed a controlled substance at d/c from ED?: No <Hesham Winter - Last Filed: 12/17/24 00:35> Clinical Impression: Psychosis Disposition: HOME SELF-CARE Condition: Fair Instructions (If sedation given, give patient instructions): Brief Psychotic Disorder (ED) Referrals: Latonia King MD [Primary Care Provider] - 1-2 days
== END 2024-12-16 21:55 | disposition home or self-care (01) ==
LOC: EC 15:05
DX: F29 Unspecified psychosis not due to a substance or known physiological condition (principal); R51.9 Headache, unspecified; M54.50 Low back pain, unspecified; Z88.8 Allergy status to other drugs, medicaments and biological substances
CPT/HCPCS: 80306; 81003; 99285

== ENCOUNTER 2024-12-19 10:35 | Inpatient (IN) | payer MEDICARE, MEDICAID ==
--- NOTE | 2024-12-19 10:49 | ED ---
Psych HPI - General Chief Complaint: Psychiatric Symptoms Stated Complaint: Mental health/medication issue Time Seen by Provider: 12/19/24 10:48 Source: patient, RN notes reviewed Mode of arrival: ambulatory - History of Present Illness Initial Comments: 34-year-old male presenting for medication issue. States he takes a monthly injection of risperidone. He is due for the medication now but states he would like to get off the risperidone as it makes him feel suicidal and crazy. Denies current suicidal or homicidal ideation. No other complaints. - Related Data Home Medications Medication Instructions Recorded Confirmed Omeprazole 40 mg PO DAILY@0700 12/16/24 12/19/24 carBAMazepine [TEGretol] 200 mg PO BID@0800,209912/16/24 12/19/24 cloZAPine [cloZAPine ODT] 200 mg PO HS@209912/16/24 12/19/24 clonazePAM [KlonoPIN] 0.5 mg PO BID@0800,209912/16/24 12/19/24 hydrOXYzine pamoate [Vistaril] 25 mg PO HS@209912/16/24 12/19/24 risperiDONE [Uzedy] 125 mg SQ Q28D 12/16/24 12/19/24 Previous Rx's Medication Instructions Recorded hydrOXYzine pamoate [Vistaril] 50 mg PO QID PRN 30 Days #60 cap 10/21/24 Allergies Allergy/AdvReac Type Severity Reaction Status Date / Time aripiprazole [From Abilify] Allergy Unknown Verified 12/19/24 10:59 divalproex sodium Allergy Vomiting Verified 12/19/24 10:59 [From Depakote] haloperidol [From Haldol] Allergy Unknown Verified 12/19/24 10:59 propoxyphene Allergy Unknown Verified 12/19/24 10:59 [From Darvocet-N] ziprasidone [From Geodon] Allergy Unknown Verified 12/19/24 10:59 fluphenazine enanthate AdvReac Severe Trismus Verified 12/19/24 10:59 [From Prolixin] fluphenazine HCl AdvReac Lock[place]aw Verified 12/19/24 10:59 [From Prolixin] paliperidone [From Invega] AdvReac panic Verified 12/19/24 10:59 attacks risperidone AdvReac Nausea & Verified 03/27/25 10:59 Vomiting Review of Systems ROS Statement: Those systems with pertinent positive or pertinent negative responses have been documented in the HPI. ROS Other: All systems not noted in ROS Statement are negative. Past Medical History Past Medical History: Seizure Disorder Additional Past Medical History / Comment(s): Schizophrenia, right arm fracture, degenerative disc to lower back, and right wrist plate and screws. Last seizure "months ago" History of Any Multi-Drug Resistant Organisms: None Reported Past Surgical History: Orthopedic Surgery Additional Past Surgical History / Comment(s): mouth surgery, reduction of right arm fracture. Past Anesthesia/Blood Transfusion Reactions: No Reported Reaction Past Psychological History: Anxiety, Panic Disorder, Schizophrenia Smoking Status: Never smoker Past Alcohol Use History: None Reported Past Drug Use History: None Reported - Past Family History Mother Brother(s) Family Medical History: Unable to Obtain General Exam Limitations: no limitations General appearance: alert, in no apparent distress Head exam: Present: atraumatic, normocephalic, normal inspection Eye exam: Present: normal appearance, PERRL, EOMI. Absent: scleral icterus, conjunctival injection, periorbital swelling ENT exam: Present: normal exam, mucous membranes moist Neurological exam: Present: alert, oriented X3, CN II-XII intact Psychiatric exam: Present: normal affect, normal mood. Absent: homicidal ideation, suicidal ideation Skin exam: Present: warm, dry, intact, normal color. Absent: rash Course Vital Signs 12/19/24 10:36 Temperature 97.8 F Pulse Rate 96 Respiratory 17 Rate Blood Pressure 135/101 O2 Sat by Pulse 96 Oximetry Medical Decision Making - Medical Decision Making Was pt. sent in by a medical professional or institution (Dr. PA, PROPULSION MOTOR AND GENERATOR REPAIRER, urgent care, hospital, or long term...) When possible be specific @ -No Did you speak to anyone other than the patient for history (EMS, parent, family, police, friend...)? What history was obtained from this source @ -No Did you review nursing and triage notes (agree or disagree)? Why? @ -I reviewed and agree with nursing and triage notes Were old charts reviewed (outside hosp., previous admission, EMS record, old EKG, old radiological studies, urgent care reports/EKG's, long term records)? Report findings @ -No old charts were reviewed Differential Diagnosis (chest pain, altered mental status, abdominal pain women, abdominal pain men, vaginal bleeding, weakness, fever, dyspnea, syncope, headache, dizziness, GI bleed, back pain, seizure, CVA, palpatations, mental health, musculoskeletal)? @ -Differential Mental Health Depression, anxiety, bipolar, psychosis, schizophrenia, borderline personality, situational depression, adjustment disorder, behavioral disorder, brain tumor, malingering, substance abuse, encephalopathy, medication reaction, dementia, hyp othyroidism, degenerative neurologic disorder, lupus.... This is not meant to be all-inclusive list EKG interpreted by me (3pts min.). @ -None X-rays interpreted by me (1pt min.). @ -None done CT interpreted by me (1pt min.). @ -None done U/S interpreted by me (1pt. min.). @ -None done What testing was considered but not performed or refused? (CT, X-rays, U/S, labs)? Why? @ -None What meds were considered but not given or refused? Why? @ -None Did you discuss the management of the patient with other professionals (professionals i.e. , PA, PROPULSION MOTOR AND GENERATOR REPAIRER, lab, RT, psych nurse, social worker clinical, aircraft cleaning supervisor, teacher, juvenile officer, major case detective)? Give summary @ -I spoke with Bita from EPS who recommends admission for court ordered medication Was smoking cessation discussed for >3mins.? @ -No Was critical care preformed (if so, how long)? @ -No Were there social determinants of health that impacted care today? How? (Homelessness, low income, unemployed, alcoholism, drug addiction, transportation, low edu. Level, literacy, decrease access to med. care, [place] [facility], rehab)? @ -No Was there de-escalation of care discussed even if they declined (Discuss DNR or withdrawal of care, Hospice)? DNR status @ -No What co-morbidities impacted this encounter? (DM, HTN, Smoking, COPD, CAD, Cancer, CVA, ARF, Chemo, Hep., AIDS, mental health diagnosis, sleep apnea, morbid obesity)? @ -None Was patient admitted / discharged? Hospital course, mention meds given and route, prescriptions, significant lab abnormalities, going to OR and other pertinent info. @ - admitted. 34-year-old male presenting for medication issue. States he would like to get off of his risperidone as it makes him feel suicidal and crazy. Denies active suicidal or homicidal ideation. No other medical complaints at this time. Patient is medically cleared to be seen by EPS. I spoke with Bita from EPS who recommends admission for court ordered medication. I agree with this plan. Case was discussed with my ED attending Dr. Castelan. Undiagnosed new problem with uncertain prognosis? @ -No Drug Therapy requiring intensive monitoring for toxicity (Heparin, Nitro, Insulin, Cardizem)? @ -No Were any procedures done? @ -No Diagnosis/symptom? @ -Medication issue Acute, or Chronic, or Acute on Chronic? @ -Acute Uncomplicated (without systemic symptoms) or Complicated (systemic symptoms)? @ -Complicated Side effects of treatment? @ -No Exacerbation, Progression, or Severe Exacerbation? @ -No Poses a threat to life or bodily function? How? (Chest pain, [place], [place], pneumonia, PE, COPD, DKA, ARF, appy, cholecystitis, CVA, Diverticulitis, Homicidal, Suicidal, threat to staff... and all critical care pts) @ -Possibly - Lab Data Lab Results 12/19/24 Range/Units 11:17 Urine Opiates Screen Not Detected (NotDetected) Ur Oxycodone Screen Not Detected (NotDetected) Urine Methadone Screen Not Detected (NotDetected) Ur Barbiturates Screen Not Detected (NotDetected) U Tricyclic Antidepress Not Detected (NotDetected) Ur Phencyclidine Scrn Not Detected (NotDetected) Ur Amphetamines Screen Not Detected (NotDetected) U Methamphetamines Scrn Not Detected (NotDetected) U Benzodiazepines Scrn Not Detected (NotDetected) Urine Cocaine Screen Not Detected (NotDetected) U Marijuana (THC) Screen Detected H (NotDetected) Disposition Clinical Impression: Medication management Disposition: ADMITTED IP TO THIS HOSP Referrals: Latonia King MD [Primary Care Provider] - 1-2 days Time of Disposition: 12:37
[2024-12-19 11:37] LABS: Amphetamine Screen,Urine Not Detected (NotDetected); Barbiturate Screen,Urine Not Detected (NotDetected); Benzodiazepines Screen,Urine Not Detected (NotDetected); Cocaine Screen,Urine Not Detected (NotDetected); Methadone Screen, Urine Not Detected (NotDetected); Opiate Screen,Urine Not Detected (NotDetected); Oxycodone Screen, Urine Not Detected (NotDetected); Phencyclidine Screen,Urine Not Detected (NotDetected); Tricyclic Antidepressant,Urine Not Detected (NotDetected); Urn Cannabinoid Scrn Detected (NotDetected)
[2024-12-19] MEDS: BUTALB/APAP/CAFF 50-325-40MG TAB PO STA (11:53)
[2024-12-19 14:12] LABS: Influenza A Not Detected (Not Detectd); Influenza B Not Detected (Not Detectd); RSV Not Detected (Not Detectd)
[2024-12-19] MEDS ORDERED: ACETAMINOPHEN TAB 325 MG TAB PO PRN (14:17)
[2024-12-19] MEDS ORDERED: IBUPROFEN 600 MG TAB PO PRN (14:17)
[2024-12-19] MEDS ORDERED: MAG HYDROX/AL HYDROX/SIMETH 355 ML BOTTLE PO PRN (14:17)
[2024-12-19] MEDS ORDERED: MAGNESIUM HYDROXIDE 2,400 MG/30 ML CUP PO PRN (14:17)
[2024-12-19] MEDS ORDERED: OLANZapine 10 MG VIAL IM PRN (14:20)
[2024-12-19] MEDS ORDERED: OLANZapine 5 MG TAB PO PRN (14:20)
[2024-12-19] MEDS: hydrOXYzine pamoate 25 MG CAP PO PRN (15:07)
[2024-12-19] MEDS: cloZAPine 100 MG TAB PO SCH (20:01)
[2024-12-19] MEDS: carBAMazepine 200 MG TAB PO SCH (20:01)
[2024-12-19] MEDS: clonazePAM 0.5 MG TAB PO SCH (20:01)
[2024-12-19] MEDS: hydrOXYzine pamoate 25 MG CAP PO SCH (20:02)
[2024-12-19 22:40] VITALS: RESP 14
[2024-12-20 04:00] LABS: Appearance,Urine Clear (Clear); Bilirubin,Urine Negative (Negative); Blood,Urine Negative (Negative); Color,Urine Colorless; Glucose,Urine (UA) Negative (Negative); Ketones,Urine Negative (Negative); Leukocyte Esterase,Urine Negative (Negative); Nitrite,Urine Negative (Negative); PH, Urine 7.5 (5.0-8.0); Protein,Urine Negative (Negative); Specific Gravity,Urine 1.007 (1.001-1.035); Urobilinogen,Urine <2.0 mg/dL (<2.0)
[2024-12-20 08:10] VITALS: BP 123/88; PULSE 129; TEMP 97.5
[2024-12-20] MEDS: PANTOPRAZOLE 40 MG TABLET PO SCH (08:10)
[2024-12-20 09:00] LABS: Basophils % (A) 1 %; Eosinophils # (A) 0.1 k/uL (0-0.7); Eosinophils % (A) 3 %; HCT 44.2 % (39.0-53.0); HGB 14.9 gm/dL (13.0-17.5); Lymphocytes # (A) 1.2 k/uL (1.0-4.8); Lymphocytes % (A) 31 %; MCH 29.6 pg (25.0-35.0); MCHC 33.7 g/dL (31.0-37.0); Mean Platelet Volume 6.9; Monocytes # (A) 0.2 k/uL (0-1.0); Monocytes % (A) 6 %; Neutrophils # (A) 2.2 k/uL (1.3-7.7); Neutrophils % (A) 58 %; Platelet Count 231 k/uL (150-450); RBC 5.04 m/uL (4.30-5.90); RDW 13.1 % (11.5-15.5); WBC 3.9 k/uL (3.8-10.6)
[2024-12-20 09:11] LABS: MCV 87.8 fL (80.0-100.0)
[2024-12-20 09:15] LABS: ALT 27 U/L (4-49); AST 23 U/L (17-59); African American GFR (CKD) >90 (>60 ml/min/1.73 sqM); Albumin 4.8 g/dL (3.5-5.0); Alkaline Phosphatase 95 U/L (38-126); Anion Gap 11 mmol/L; Blood Urea Nitrogen 13 mg/dL (9-20); Calcium 9.5 mg/dL (8.4-10.2); Carbon Dioxide 26 mmol/L (22-30); Chloride 101 mmol/L (98-107); Glucose 137 mg/dL (74-99); Non-African American GFR(CKD) >90 (>60 ml/min/1.73 sqM); Potassium 4.7 mmol/L (3.5-5.1); Sodium 138 mmol/L (137-145); Total Bilirubin 0.3 mg/dL (0.2-1.3); Total Protein 7.4 g/dL (6.3-8.2)
--- NOTE | 2024-12-20 13:48 | P.HP ---
Psychiatric H&P - . H&P Date: 12/20/24 History & Physical: Allergies Allergy/AdvReac Type Severity Reaction Status Date / Time aripiprazole from Abilify Allergy Unknown Verified 12/19/24 10:59 divalproex sodium Allergy Vomiting Verified 12/19/24 10:59 From Depakote haloperidol from Haldol Allergy Unknown Verified 12/19/24 10:59 propoxyphene Allergy Unknown Verified 12/19/24 10:59 From Darvocet-N ziprasidone from Geodon Allergy Unknown Verified 12/19/24 10:59 fluphenazine enanthate AdvReac Severe Trismus Verified 12/19/24 10:59 From Prolixin fluphenazine HCl AdvReac Lock[place]aw Verified 12/19/24 10:59 From Prolixin paliperidone from Invega AdvReac panic Verified 12/19/24 10:59 attacks risperidone AdvReac Nausea & Verified 12/19/24 10:59 Vomiting Vital Signs Temp 97.5 F L 12/20/24 08:09 Pulse 129 H 12/20/24 08:09 Resp 14 12/19/24 20:00 BP 123/88 12/20/24 08:09 Pulse Ox 96 12/20/24 08:09 FiO2 Intake & Output 12/19/24 12/20/24 12/20/24 18:59 06:59 18:59 Weight 88.139 kg Laboratory Last Values WBC 3.9 k/uL (3.8-10.6) 12/20/24 08:22 RBC 5.04 m/uL (4.30-5.90) 12/20/24 08:22 Hgb 14.9 gm/dL (13.0-17.5) 12/20/24 08:22 Hct 44.2 % (39.0-53.0) 12/20/24 08:22 MCV 87.8 fL (80.0-100.0) D 12/20/24 08:22 MCH 29.6 pg (25.0-35.0) 12/20/24 08:22 MCHC 33.7 g/dL (31.0-37.0) 12/20/24 08:22 RDW 13.1 % (11.5-15.5) 12/20/24 08:22 Plt Count 231 k/uL (150-450) 12/20/24 08:22 MPV 6.9 12/20/24 08:22 Neutrophils % 58 % 12/20/24 08:22 Lymphocytes % 31 % 12/20/24 08:22 Monocytes % 6 % 12/20/24 08:22 Eosinophils % 3 % 12/20/24 08:22 Basophils % 1 % 12/20/24 08:22 Neutrophils # 2.2 k/uL (1.3-7.7) 12/20/24 08:22 Lymphocytes # 1.2 k/uL (1.0-4.8) 12/20/24 08:22 Monocytes # 0.2 k/uL (0-1.0) 12/20/24 08:22 Eosinophils # 0.1 k/uL (0-0.7) 12/20/24 08:22 Basophils # 0.0 k/uL (0-0.2) 12/20/24 08:22 Sodium 138 mmol/L (137-145) 12/20/24 08:22 Potassium 4.7 mmol/L (3.5-5.1) 12/20/24 08:22 Chloride 101 mmol/L (98-107) 12/20/24 08:22 Carbon Dioxide 26 mmol/L (22-30) 12/20/24 08:22 Anion Gap 11 mmol/L 12/20/24 08:22 BUN 13 mg/dL (9-20) 12/20/24 08:22 Creatinine 0.81 mg/dL (0.66-1.25) 12/20/24 08:22 Est GFR (CKD-EPI)AfAm >90 (>60 ml/min/1.73 sqM) 12/20/24 08:22 Est GFR (CKD-EPI)NonAf >90 (>60 ml/min/1.73 sqM) 12/20/24 08:22 Glucose 137 mg/dL (74-99) H 12/20/24 08:22 Calcium 9.5 mg/dL (8.4-10.2) 12/20/24 08:22 Total Bilirubin 0.3 mg/dL (0.2-1.3) 12/20/24 08:22 AST 23 U/L (17-59) 12/20/24 08:22 ALT 27 U/L (4-49) 12/20/24 08:22 Alkaline Phosphatase 95 U/L (38-126) 12/20/24 08:22 Total Protein 7.4 g/dL (6.3-8.2) 12/20/24 08:22 Albumin 4.8 g/dL (3.5-5.0) 12/20/24 08:22 TSH 3.810 mIU/L (0.465-4.680) 12/20/24 08:22 Urine Color Colorless 12/19/24 11:17 Urine Appearance Clear (Clear) 12/19/24 11:17 Urine pH 7.5 (5.0-8.0) 12/19/24 11:17 Ur Specific [place] 1.007 (1.001-1.035) 12/19/24 11:17 Urine Protein Negative (Negative) 12/19/24 11:17 Urine Glucose (UA) Negative (Negative) 12/19/24 11:17 Urine Ketones Negative (Negative) 12/19/24 11:17 Urine Blood Negative (Negative) 12/19/24 11:17 Urine Nitrite Negative (Negative) 12/19/24 11:17 Urine Bilirubin Negative (Negative) 12/19/24 11:17 Urine Urobilinogen <2.0 mg/dL (<2.0) 12/19/24 11:17 Ur Leukocyte Esterase Negative (Negative) 12/19/24 11:17 Urine Opiates Screen Not Detected (NotDetected) 12/19/24 11:17 Ur Oxycodone Screen Not Detected (NotDetected) 12/19/24 11:17 Urine Methadone Screen Not Detected (NotDetected) 12/19/24 11:17 Ur Barbiturates Screen Not Detected (NotDetected) 12/19/24 11:17 U Tricyclic Antidepress Not Detected (NotDetected) 12/19/24 11:17 Ur Phencyclidine Scrn Not Detected (NotDetected) 12/19/24 11:17 Ur Amphetamines Screen Not Detected (NotDetected) 12/19/24 11:17 U Methamphetamines Scrn Not Detected (NotDetected) 12/19/24 11:17 U Benzodiazepines Scrn Not Detected (NotDetected) 12/19/24 11:17 Urine Cocaine Screen Not Detected (NotDetected) 12/19/24 11:17 U Marijuana (THC) Screen Detected (NotDetected) H 12/19/24 11:17 Influenza Type A (PCR) Not Detected (Not Detectd) 12/19/24 12:00 Influenza Type B (PCR) Not Detected (Not Detectd) 12/19/24 12:00 RSV (PCR) Not Detected (Not Detectd) 12/19/24 12:00 SARS-CoV-2 (PCR) Not Detected (Not Detectd) 12/19/24 12:00 12/20/24 13:31 IDENTIFYING DATA: Patient is a 34-year-old male with a public guardian, living at [facility], on disability and on a court order that expires 05/15/2025 CHIEF COMPLAINT: Nonadherence with medications HPI: Patient presented to the hospital with medication issue. EPS note states, "PT brought self to ER after speaking with [facility]. RN spoke with [facility] prescriber La Gleason NP who recommended inpatient d/t non compliance and SI. Upon assessment pt was calm and cooperative. Pt spoke about how his Risperadol "makes me crazy". When asked to describe what he was feeling he was unable to do so. He states that he is allergic to this medication but he states it just makes him addicted to things such as caffiene. Pt mentioned N/V but this appears to be an ongoing compliant. No current N/V. Pt admits to feeling suicidal, he states, "It's the medications doing this to me". When asked about a plan he would just respond, "I just have a bad feeling" and would not disclose a plan. Pt states he is not well. He is over sleeping. He has a lack of motivation. He is unkempt/disheleved. Not dressing appropriately for the weather. Pt denies etoh use BAT0. Denies substance use but UDS was pos for marijuana. Pt has hx of seizures:reports it's been a few months since having one. He claims to be compliant with medications but is refusing his injection and per his [facility] prescriber his med levels are low." Patient seen and evaluated on the unit and was agreeable with speaking to appeals writer in office. He states Risperdal is causing him to become a "crazy and throw up". He reports he has been adherent with his other psychotropic medications but does not like the way the Risperdal makes him feel. Reports constipation related to Clazoril but otherwise is tolerating this medication well. Patient request an increase in his Klonopin however this was discouraged to which patient was agreeable with. Patient also request to be put back on Elavil however this was also discouraged and patient was amenable to this. Patient reports he has been tending to his ADLs. Has plans to eventually leave his senior care however he was encouraged to discuss this with the [facility] team. Patient is requesting for fiorcet for migraines, stating he received this medication in the ED. Patient denies any suicidal or homicidal ideations intent or plan. He reports only experiencing suicidal ideations with Risperdal injection however he vehemently denied any at this time. At this time patient denies any auditory or visual hallucinations. Patient denies any flight of ideas racing thoughts and increased in goal directed behavior. Patient admits to using cannabis once from a friend via vape, denying any other drug use. Spoke to patient's outpatient provider La Mariscal NP who states patient is argumentative and manipulative. She has been increasing his Clozaril with the ultimate goal of staying on Clozaril monotherapy once levels are at an adequate dose. She reports patient has been refusing his Risperdal Uzedy but is in agreement with administering this medication today with the potential discharge today. She reports decreasing patient's Tegretol to boost the effects of Clozaril given studies reporting Tegretol decreasing the pharmacological effects of clozapine. PAST PSYCHIATRIC HISTORY: Patient has a history of schizoaffective disorder, bipolar type, methamphetamine use disorder. Patient is currently on Tegretol 200 mg twice daily, clozapine 200 mg at bedtime, Risperdal Uzedy 125 mg subcutaneous every 4 weeks, Klonopin 0.5 mg twice daily, Vistaril 25 mg at bedtime. Patient has had several inpatient hospitalizations, most recent being September 2024. Patient sees La Mariscal NP [facility]. Patient denies any history of suicide attempts in the past. PMH: as per ER note ALLERGIES: as per EMR SUBSTANCE USE HISTORY: As per HPI FAMILY PSYCHIATRIC/SUBSTANCE USE HISTORY: Denies SOCIAL HISTORY: Patient is single and has no children. He has a public guardian currently residing at [facility]. He is on disability MENTAL STATUS EXAM: General Appearance: Patient appears to be stated age is alert, directable, and attempts to cooperate. Patient appears to have poor hygiene and grooming. Behavior: Patient is seated without any agitated behavior. Speech: Patient's speech is fluent and fast rate. Mood/Affect: Patient reports their mood is "okay", affect is congruent and constricted. Suicidality/Homicidality: Patient denies having any homicidal ideation intent or plan. Denies any suicidal ideations intent or plan Perceptions: Patient denies any visual hallucinations and denies any auditory hallucinations Though content/process: There is no evidence of any delusional thought content and thought process is linear. Thought content is fixated on not wanting to be on Risperdal Uzedy, drug-seeking Memory and concentration: AOX3, grossly intact for the purposes of this session. Can spell "WORLD" backwards Judgment and insight: Poor STRENGTHS/WEAKNESSES: strength is that patient is resilient and has a public guardian. Weakness is that patient has poor judgment/insight and is impulsive INTELLECT: Average IMPRESSIONS: Schizoaffective disorder, bipolar type Nonadherence with medications Cannabis use disorder Methamphetamine use disorder, in remission PLAN: -Patient is admitted under court order status to [facility] for stabilization of psychiatric symptoms and safety. His court order expires on 05/15/2025. Patient has not signed adult voluntary form and medication consent and is placed in pérez ent's chart. -Medications : Patient to receive Risperdal Uzedy 125 mg subcutaneous today with the next dose being due on 01/17/2025. Continue Clozaril 200 mg at bedtime for psychosis, Klonopin 0.5 mg twice daily for anxiety, Vistaril 25 mg at bedtime for insomnia, Tegretol 200 mg twice daily for mood stabilization -Hydroxyzine and Zyprexa PRN for agitation/aggression -Patient was counselled on substance abuse and desired to cut back on use -Patient was informed of the risks, benefits and side effects of the medication and patient verbally consented to taking the medications. Patient signed med consent form and was placed in chart. -Internal Medicine consult to perform medical evaluation and physical. -NRT -not needed as patient does not smoke -SW on board for discharge planning. Encourage patient to participate in groups to work on coping skills. Anticipate discharge either today or Monday back to [facility]. Will confirm that he is able to return.
[2024-12-20] MEDS: risperiDONE 125 MG/0.35 ML SYR (NO COST) SQ ONE (14:24)
--- NOTE | 2024-12-20 14:45 | P.DS ---
Providers Date of admission: 12/19/24 14:14 Expected date of discharge: 12/20/24 Attending physician: Swati Velarde MD Consults: 12/19/24 14:17 Consult Physician Routine Consulting Provider: [facility] Hospitalists Consult Reason/Comments: H&P Do you want consulting provider notified?: Yes Primary care physician: Latonia King - Discharge Diagnosis(es) (1) Schizoaffective disorder, bipolar type Current Visit: Yes Status: Acute Priority: High (2) Cannabis abuse Current Visit: Yes Status: Acute Priority: Low (3) Nonadherence to medical treatment Current Visit: Yes Status: Acute Priority: High Hospital Course: Admission HPI: Admission note was completed by service writer advisor "Patient presented to the hospital with medication issue. EPS note states, "PT brought self to ER after speaking with [facility]. RN spoke with [facility] prescriber La Gleason NP who recommended inpatient d/t non compliance and SI. Upon assessment pt was calm and cooperative. Pt spoke about how his Risperadol "makes me crazy". When asked to describe what he was feeling he was unable to do so. He states that he is allergic to this medication but he states it just makes him addicted to things such as caffiene. Pt mentioned N/V but this appears to be an ongoing compliant. No current N/V. Pt admits to feeling suicidal, he states, "It's the medications doing this to me". When asked about a plan he would just respond, "I just have a bad feeling" and would not disclose a plan. Pt states he is not well. He is over sleeping. He has a lack of motivation. He is unkempt/disheleved. Not dressing appropriately for the weather. Pt denies etoh use BAT0. Denies substance use but UDS was pos for marijuana. Pt has hx of seizures:reports it's been a few months since having one. He claims to be compliant with medications but is refusing his injection and per his [facility] prescriber his med levels are low." Patient seen and evaluated on the unit and was agreeable with speaking to service writer advisor in office. He states Risperdal is causing him to become a "crazy and throw up". He reports he has been adherent with his other psychotropic medications but does not like the way the Risperdal makes him feel. Reports constipation related to Clazoril but otherwise is tolerating this medication well. Patient request an increase in his Klonopin however this was discouraged to which patient was agreeable with. Patient also request to be put back on Elavil however this was also discouraged and patient was amenable to this. Patient reports he has been tending to his ADLs. Has plans to eventually leave his assisted however he was encouraged to discuss this with the [facility] team. Patient is requesting for fiorcet for anum marmolejo, stating he received this medication in the ED. Patient denies any suicidal or homicidal ideations intent or plan. He reports only experiencing suicidal ideations with Risperdal injection however he vehemently denied any at this time. At this time patient denies any auditory or visual hallucinations. Patient denies any flight of ideas racing thoughts and increased in goal directed behavior. Patient admits to using cannabis once from a friend via vape, denying any other drug use. Spoke to patient's outpatient provider La Mariscal NP who states patient is argumentative and manipulative. She has been increasing his Clozaril with the ultimate goal of staying on Clozaril monotherapy once levels are at an adequate dose. She reports patient has been refusing his Risperdal Uzedy but is in agreement with administering this medication today with the potential discharge today. She reports decreasing patient's Tegretol to boost the effects of Clozaril given studies reporting Te gretol decreasing the pharmacological effects of clozapine." Hospital course: Upon admission to the unit patient was is currently on an DIALLO that expires on 05/15/2025.. Patient got along well with other patients on the unit and followed unit protocol. Patient was due for his Risperdal Uzedy injection however refused to take this medication stated it reported suicidal thoughts however patient reports suicidal thoughts at baseline and this is not an actual adverse effect to the medication. Patient ended up receiving Risperdal Uzedy 125 mg subcutaneous on 12/20/2024 with the next dose being due on 01/17/2025. Patient was resistant to this, becoming upset with service writer advisor for prescribing this medication however he was informed that the long-term goal is to stop this injection once his Clozaril dose was at a therapeutic one. Patient displayed poor insight, he was reminded of his court order however states he wishes to fire his [facility] team. Patient did display manipulative and drug-seeking behaviors, requesting to be on Fioricet for migraines and Elavil in addition to increasing his Klonopin which was strongly discouraged. Patient was also seen by medical team for history and physical exam. Throughout the course of the hospitalization patient gradually improved with regards to mood, anxiety, sleep and returned back to their baseline level of functioning. On the day of discharge patient denied any homicidal ideations intent or plan denied any auditory or visual hallucinations. He initially denied suicidal thoughts however upon receiving the Risperdal anxiety injection he then reported suicidal ideations, demanding to stay here on the unit and not be discharged for unclear reasons. The patient denied any access to guns or weapons. Patient denied any paranoia and did not endorse any overt delusions. Patient does not have a significant history of substance abuse and was counseled on abstaining from all substances including alcohol and marijuana. Patient was also counseled on the medications and need for regular compliance and was encouraged to follow-up with their outpatient appointment for mental health and also for primary care. Patient to be discharged back to his assisted will follow-up with [facility]. Mental status exam: General Appearance: Patient appears to be stated age is alert, pleasant, and cooperative. Patient is in no acute distress and has poor hygiene and grooming Behavior: Patient is irritable Speech: Patient's speech is fluent and nonpressured, yelling. Mood/Affect: Patient reports their mood is "upset because you gave me the shot", affect is congruent and euthymic. Suicidality/Homicidality: Patient denies having any suicidal or homicidal ideation intent or plan. Perceptions: Patient denies any auditory or visual hallucinations. Though content/process: There is no evidence of any overt delusional thought content and thought process is linear. Memory and concentration: AOX3, grossly intact for the purposes of this session. Can spell "WORLD" backwards correctly. Judgment and insight: Chronically poor, however has improved with guarded prognosis Impression: Schizoaffective disorder, bipolar type Nonadherence with medications Cannabis use disorder Plan: -Continue with discharge today as patient has improved and stabilized psychiatrically and is not currently an imminent threat to themself and/or others. Patient will remain at chronically elevated risk for harm to self and/or others due to their impulsivity and substance abuse. -Continue medications: Risperdal Uzedy 125 mg subcu, last given on 12/20/2024 and next due on 01/17/2025, Clozaril 200 mg at bedtime, Klonopin 0.5 mg twice daily, Vistaril 25 mg at bedtime, Tegretol 200 mg twice daily -Patient was counseled on the need for medication compliance and appropriate fol low-up at mental health and also primary care for medical issues. Patient verbalized understanding and agreed. -Social work to help coordinate patients discharge today. also to ensure safe home environment that guns/weapons are either removed from the home or locked away. Social work also to arrange for patients follow up appointments with [facility] for psychiatric care along with follow up with primary care provider. -Patient counseled on abstaining from recreational drugs and marijuana and alcohol. Was informed/educated on the adverse effects on their physical and mental health. Patient verbally agreed and understood. -Patient was instructed to return to the hospital or seek immediate medical care if their psychiatric or medical symptoms do worsen or reoccur. Abnormal Labs 12/19/24 12/20/24 11:17 08:22 Glucose 137 H U Marijuana (THC) Screen Detected H Vital Signs Temp 97.5 F L 12/20/24 08:09 Pulse 129 H 12/20/24 08:09 Resp 14 12/19/24 20:00 BP 123/88 12/20/24 08:09 Pulse Ox 96 12/20/24 08:09 FiO2 Intake & Output 12/19/24 12/20/24 12/20/24 18:59 06:59 18:59 Weight 88.139 kg Allergies Allergy/AdvReac Type Severity Reaction Status Date / Time aripiprazole [From Abilify] Allergy Unknown Verified 12/19/24 10:59 divalproex sodium Allergy Vomiting Verified 12/19/24 10:59 [From Depakote] haloperidol [From Haldol] Allergy Unknown Verified 12/19/24 10:59 propoxyphene Allergy Unknown Verified 12/19/24 10:59 [From Darvocet-N] ziprasidone [From Geodon] Allergy Unknown Verified 12/19/24 10:59 fluphenazine enanthate AdvReac Severe Trismus Verified 12/19/24 10:59 [From Prolixin] fluphenazine HCl AdvReac [place] Verified 12/19/24 10:59 [From Prolixin] paliperidone [From Invega] AdvReac panic Verified 12/19/24 10:59 attacks risperidone AdvReac Nausea & Verified 12/19/24 10:59 Vomiting Patient Condition at Discharge: Stable Plan - Discharge Summary Discharge Rx Participant: No New Discharge Prescriptions: New risperiDONE [Uzedy] 125 mg SQ ONCE each Continue carBAMazepine [TEGretol] 200 mg PO BID@0800,2100 30 Days #60 tab risperiDONE [Uzedy] 125 mg SQ Q28D 30 Days #1 each hydrOXYzine pamoate [Vistaril] 25 mg PO HS@2100 30 Days #30 cap Omeprazole 40 mg PO DAILY@0700 clonazePAM [KlonoPIN] 0.5 mg PO BID@0800,2100 cloZAPine [cloZAPine ODT] 200 mg PO HS@2100 30 Days #60 tab Discontinued hydrOXYzine pamoate [Vistaril] 50 mg PO QID PRN 30 Days #60 cap PRN Reason: Mild Anxiety Discharge Medication List Omeprazole 40 mg PO DAILY@0700 12/16/24 [History] clonazePAM [KlonoPIN] 0.5 mg PO BID@0800,2100 12/16/24 [History] carBAMazepine [TEGretol] 200 mg PO BID@0800,2100 30 Days #60 tab 12/20/24 [Rx] cloZAPine [cloZAPine ODT] 200 mg PO HS@2100 30 Days #60 tab 12/20/24 [Rx] hydrOXYzine pamoate [Vistaril] 25 mg PO HS@2100 30 Days #30 cap 12/20/24 [Rx] risperiDONE [Uzedy] 125 mg SQ ONCE each 12/20/24 [Rx] risperiDONE [Uzedy] 125 mg SQ Q28D 30 Days #1 each 12/20/24 [Rx] Follow up Appointment(s)/Referral(s): Latonai King MD [Primary Care Provider] - 1-2 days Discharge Disposition: HOME SELF-CARE
--- NOTE | 2024-12-20 15:27 | P.MDCNMH ---
History of Present Illness H&P Date: 12/20/24 This is a 34-year-old male who presented to the emergency department with the need for medication adjustments and reports has been having issues with his medications causing increased anxiety and suicidal thoughts. Patient voluntarily admitted to 3 . for further psychiatric evaluation. Patient reports he follows with Dr. Aram Mendosa in the outpatient setting with a past medical history of seizure disorder, schizophrenia, degenerative disc disease with chronic lower back pain, anxiety, panic disorder, occasional marijuana use, drinks occasional alcohol and denies any other illicit drug use. Patient reports his Risperdal is causing issues and does follow with [facility] outpatient which is being adjusted. Labs reviewed with a white count of 3.9, hemoglobin stable at 14.9, platelets 231, sodium 138, potassium 4.7, BUN 13 and creatinine 0.81, hemoglobin A1c is 5.5 and TSH is 3.810, urinalysis was negative and urine drug screen positive for marijuana, virology testing including influenza, RSV, COVID are all negative. Patient was voluntarily admitted to [facility]. It was documented around 8:00 this morning that patient had a heart rate of 129 and have ordered EKG for evaluation. Patient otherwise medically stable and has been instructed to be compliant with medications, discussed with psychiatry regarding medication adjustments and also attending group therapy sessions. REVIEW OF SYSTEMS: CONSTITUTIONAL: No fever, no malaise, no fatigue. HEENT: No recent visual problems or hearing problems. Denied any sore throat. CARDIOVASCULAR: No chest pain, orthopnea, PND, no palpitations, no syncope. PULMONARY: No shortness of breath, no cough, no hemoptysis. GASTROINTESTINAL: No diarrhea, no nausea, no vomiting, no abdominal pain. Reports of occasional constipation NEUROLOGICAL: No headaches, no weakness, no numbness. HEMATOLOGICAL: Denies any bleeding or petechiae. GENITOURINARY: Denies any burning micturition, frequency, or urgency. MUSCULOSKELETAL/RHEUMATOLOGICAL: Denies any joint pain, swelling, or any muscle pain. ENDOCRINE: Denies any polyuria or polydipsia. The rest of the 14-point review of systems is negative. PHYSICAL EXAMINATION: GENERAL: The patient is alert and oriented x3, not in any acute distress. Well developed, well nourished. Appears older than stated age HEENT: Pupils are round and equally reacting to light. EOMI. No scleral icterus. No conjunctival pallor. Normocephalic, atraumatic. No pharyngeal erythema. No thyromegaly. CARDIOVASCULAR: S1 and S2 present. No murmurs, rubs, or gallops. PULMONARY: Chest is clear to auscultation, no wheezing or crackles. ABDOMEN: Soft, nontender, mildly distended, normoactive bowel sounds. No palpab le organomegaly. MUSCULOSKELETAL: No joint swelling or deformity. EXTREMITIES: No cyanosis, clubbing, or pedal edema. NEUROLOGICAL: Gross neurological examination did not reveal any focal deficits. SKIN: No rashes. Assessment: History of schizophrenia Increased depression with suicidal thoughts, per [facility] Elevated heart rate, sinus tachycardia Noncompliance to medications, patient reports noncompliance because he has severe side effects including making him feel suicidal and increasing craziness, patient reports is his Risperdal and is being adjusted per [facility] outpatient History of seizure disorder History of degenerative disc disease and chronic back pain Anxiety, panic disorder history THC use Daily alcohol use GI prophylaxis Full code Plan: Patient was voluntarily admitted to [facility] for further psychiatric evaluation and medication adjustments. Patient reports he is having multiple side effects including increasing hallucinations, agitation, and thoughts of suicide and believes that his Risperdal. Patient does follow with [facility] outpatient which is being adjusted Patient was with an elevated heart rate this morning, recommend EKG, sinus tachycardia Home medications reviewed and resumed as appropriate Labs reviewed personally Patient has been instructed to be compliant with medications, group therapy sessions, and psychiatric evaluation Thank you kindly for this consultation. Please do not hesitate to contact us with questions or concerns The impression and plan of care has been dictated by Suyapa Camilo, Nurse Practitioner as directed. Dr. Dayo MD I have performed a history and examination and MDM of this patient, discussed the same with the dictator, and agree with the dictator's assessment and plan as written ,documented as a scribe. Based on total visit time, I have performed more than 50% of the visit. Past Medical History Past Medical History: Seizure Disorder Additional Past Medical History / Comment(s): Schizophrenia, right arm fracture, degenerative disc to lower back, and right wrist plate and screws. Last seizure "months ago" History of Any Multi-Drug Resistant Organisms: None Reported Past Surgical History: Orthopedic Surgery Additional Past Surgical History / Comment(s): mouth surgery, reduction of right arm fracture. Past Anesthesia/Blood Transfusion Reactions: No Reported Reaction Past Psychological History: Anxiety, Panic Disorder, Schizophrenia Smoking Status: Never smoker Past Alcohol Use History: None Reported Past Drug Use History: Marijuana - Past Family History Mother Brother(s) Family Medical History: Unable to Obtain Medications and Allergies Home Medications Medication Instructions Recorded Confirmed Type Omeprazole 40 mg PO DAILY@0700 12/16/24 12/19/24 History clonazePAM [KlonoPIN] 0.5 mg PO BID@0800,2100 12/16/24 12/19/24 History carBAMazepine [TEGretol] 200 mg PO BID@0800,2100 30 Days 12/20/24 Rx #60 tab cloZAPine [cloZAPine ODT] 200 mg PO HS@2099 30 Days #60 tab 12/20/24 Rx hydrOXYzine pamoate [Vistaril] 25 mg PO HS@2100 30 Days #30 cap 12/20/24 Rx risperiDONE [Uzedy] 125 mg SQ ONCE each 12/20/24 Rx risperiDONE [Uzedy] 125 mg SQ Q28D 30 Days #1 each 12/20/24 Rx Allergies Allergy/AdvReac Type Severity Reaction Status Date / Time aripiprazole [From Abilify] Allergy Unknown Verified 12/19/24 10:59 divalproex sodium Allergy Vomiting Verified 12/19/24 10:59 [From Depakote] haloperidol [From Haldol] Allergy Unknown Verified 12/19/24 10:59 propoxyphene Allergy Unknown Verified 12/19/24 10:59 [From Darvocet-N] ziprasidone [From Geodon] Allergy Unknown Verified 12/19/24 10:59 fluphenazine enanthate AdvReac Severe Trismus Verified 12/19/24 10:59 [From Prolixin] fluphenazine HCl AdvReac [place] Verified 12/19/24 10:59 [From Prolixin] paliperidone [From Invega] AdvReac panic Verified 12/19/24 10:59 attacks risperidone AdvReac Nausea & Verified 12/19/24 10:59 Vomiting Physical Exam Vitals: Vital Signs Temp Pulse Resp BP Pulse Ox 12/20/24 08:09 97.5 F L 129 H 123/88 96 12/19/24 20:00 97.7 F 92 14 131/92 97 Intake and Output 12/19/24 12/20/24 12/20/24 22:59 06:59 14:59 Other: Weight 88.139 kg Cranial Nerve Examination - Cranial Nerves Cranial Nerve I- Olfactory: Intact Cranial Nerve II- Optic: Intact Cranial Nerve III- Oculomotor: Intact Cranial Nerve IV- Trochlear: Intact Cranial Nerve V- Trigeminal: Intact Cranial Nerve - Abducens: Intact Cranial Nerve VII- Facial: Intact Cranial Nerve VIII- Auditory: Intact Cranial Nerve IX- Glossopharyngeal: Intact Cranial Nerve X- Vagus: Intact Cranial Nerve XI- Accessory: Intact Cranial Nerve XII- Hypoglossal: Intact Results CBC & Chem 7: 12/20/24 08:22 12/20/24 08:22 Labs: Abnormal Lab Results - Last 24 Hours (Table) 12/19/24 12/20/24 Range/Units 11:17 08:22 Glucose 137 H (74-99) mg/dL U Marijuana (THC) Screen Detected H (NotDetected)
[2024-12-20 20:24] LABS: Carbamazepine (Tegretol) 5.2 UG/ML (4.0-12.0)
[2024-12-23 05:19] LABS: Clozapine (Clozaril) 67 ng/mL (200-700); Norclozapine 101 ng/mL (200-700)
== END 2024-12-20 16:00 | disposition home or self-care (01) | DRG 885 ==
LOC: EC 10:35 → 3MHU 14:14
PROVIDERS: ADMIT Psychiatry & Neurology Psychiatry; ATTEND Psychiatry & Neurology Psychiatry
DX: F25.0 Schizoaffective disorder, bipolar type (principal); R45.851 Suicidal ideations; G40.909 Epilepsy, unspecified, not intractable, without status epilepticus; F12.10 Cannabis abuse, uncomplicated; F15.11 Other stimulant abuse, in remission; F41.9 Anxiety disorder, unspecified; G43.909 Migraine, unspecified, not intractable, without status migrainosus; K59.00 Constipation, unspecified; Z76.5 Malingerer [conscious simulation]; Z79.899 Other long term (current) drug therapy; Z91.148 Patient's other noncompliance with medication regimen for other reason; Z91.199 Patient's noncompliance with other medical treatment and regimen due to unspecified reason; Z11.52 Encounter for screening for COVID-19
CPT/HCPCS: 80053; 80156; 80159; 80306; 81003; 82075; 83036; 84443; 85025; 87636; 93005; 99285